=== PATIENT | male | born 1945 | race Caucasian/White ===

== ENCOUNTER 2019-03-31 14:15 | Emergency (ER) | payer MEDICARE, SELFPAY ==
--- NOTE | ~2019-03-31 | XR_ITS ---
XR finger 3rd LT min 2V DATE: 03/31/2019 14:52 INDICATION: Pain at proximal interphalangeal joint of third digit TECHNIQUE: 3 views COMPARISON: None FINDINGS: There is osteoarthritic narrowing at the distal interphalangeal joint of the third digit. N o fracture or dislocation, periosteal reaction or bone destruction or radiopaque soft tissue foreign body or subcutaneous emphysema is detected. IMPRESSION: Mild osteoarthritis Reviewed, dictated and finalized at location A. IC [facility]ENCE BUILDER IMPRESSION: Mild osteoarthritis
[2019-03-31 14:21] VITALS: BP 155/50; PULSE 62; RESP 20; TEMP 36.4; O2SAT 99
--- NOTE | 2019-03-31 14:21 | ED.UPPEXIN ---
HPI - Extremity Injury (Upper) General Chief Complaint: Extremity Injury, Upper Stated Complaint: jammed finger left hand Time Seen by Provider: 03/31/19 14:21 Source: patient and RN notes reviewed History of Present Illness HPI narrative: Patient is a 73-year-old male that presents the urgent care with complaints of pain and inflammation in the third digit of the left hand. Patient states that he jammed it a couple weeks ago but the last few days it is caused him worsening pain and he states that it is stiff. Patient has not taken anything for the pain. Is unsure of how he originally jammed it 2 weeks ago. No other acute complaints. No acute distress noted. Patient had a plan of care. Related Data Home Medications Medication Instructions Recorded Confirmed amlodipine 10 mg PO HS 03/31/19 03/31/19 finasteride 5 mg PO DAILY 03/31/19 03/31/19 losartan 100 mg PO DAILY 03/31/19 03/31/19 pravastatin 40 mg PO HS 03/31/19 03/31/19 tamsulosin [Flomax] 0.4 mg PO HS 03/31/19 03/31/19 Allergies Allergy/AdvReac Type Severity Reaction Status Date / Time moxifloxacin Allergy Mild Rash Verified 03/31/19 14:37 Penicillins Allergy Mild Hives / Verified 03/31/19 14:37 Red Face Review of Systems Review of Systems: Narrative: CONSTITUTIONAL: Denies fever, chills, or sweats. EYES: Denies visual changes, redness, or discharge. ENT: Denies rhinorrhea, congestion, sore throat, or otalgia. CARDIOVASCULAR: Denies chest pain, palpitations, or edema. RESPIRATORY: Denies cough or dyspnea. GASTROINTESTINAL: Denies abdominal pain, nausea, vomiting, or diarrhea. GENITOURINARY: Denies dysuria or hematuria. SKIN: Denies rash or itching. MUSCULOSKELETAL: Reports of pain and inflammation of the third digit on the left hand NEUROLOGIC: Denies headache, numbness, or weakness. PMFSH Comments At the time of my signature, I reviewed and agree with the nursing past medical, surgical, social, and family history. There is no relevant family history pertinent to the patient complaint. Exam Narrative: Exam Narrative: GENERAL: This is a well-nourished, well-developed patient, in no apparent distress. HEAD: normocephalic, atraumatic. EYES: PERRL. Sclera clear/white. Vision is grossly intact. EARS: External ears normal NOSE: External nose normal with no obvious nasal discharge THROAT: Mucous membranes moist NECK: Neck supple CARDIOVASCULAR: Regular rate and rhythm without murmurs, gallops, or rubs. RESPIRATORY: Clear to auscultation. Breath sounds equal bilaterally. No wheezes, rales, or rhonchi. SKIN: warm, intact with no suspicious lesions or rash, good texture and turgor. NEURO: awake, alert, and oriented to person, place and time. There were no obvious focal neurologic abnormalities. EXTREMITIES: Mild inflammation of the third digit of the left hand to the PIP joint with limited range of motion due to pain. Positive strong left radial pulse with capillary refill less than 2 seconds. Course Vital Signs Vital signs: Vital Signs Temperature 97.6 F 03/31/19 14:21 Pulse Rate 62 03/31/19 14:21 Respiratory Rate 20 03/31/19 14:21 Blood Pressure 155/50 H 03/31/19 14:21 Pulse Oximetry 99 03/31/19 14:21 Temperature 97.6 F 03/31/19 14:21 Pulse Rate 62 03/31/19 14:21 Respiratory Rate 20 03/31/19 14:21 Blood Pressure 155/50 H 03/31/19 14:21 Pulse Oximetry 99 03/31/19 14:21 Reviewed MDM - Extremity Injury (Upper) MDM Narrative Medical decision making narrative: Reviewed x-ray results with the patient. He is aware that x-ray showed mild osteoarthritis in the joint. No obvious fracture or dislocation. Advised the patient to use ibuprofen as needed for pain. Follow-up with PCP within 2 to 5 days or for worsening symptoms or failure to improve. Differential Diagnosis Differential diagnosis: Likely fracture of wrist, finger sprain, dislocation of finger and fracture of hand Imaging Data Radiologist's impression: Patient: Y
== END 2019-03-31 15:05 | disposition home or self-care (01) ==
PROVIDERS: Emergency Provider Nurse Practitioner Family; PCP Family Medicine
DX: M19.042 Primary osteoarthritis, left hand (principal); I10 Essential (primary) hypertension; E78.00 Pure hypercholesterolemia, unspecified
CPT/HCPCS: 73140; 99213; G0463

== ENCOUNTER 2019-12-28 13:39 | Emergency (ER) | payer MEDICARE, SELFPAY ==
[2019-12-28 13:47] VITALS: BP 151/54; PULSE 65; RESP 14; TEMP 36.7; O2SAT 100
--- NOTE | 2019-12-28 14:29 | ED.SKABFB ---
HPI - Skin/Abscess/Foreign Bdy General Chief complaint: Skin/Abscess/Foreign Body Stated complaint: Rash Time Seen by Provider: 12/28/19 14:29 Source: patient and RN notes reviewed Mode of arrival: ambulatory Limitations: no limitations History of Present Illness HPI narrative: 74-year-old male who presents to [facility] care with complaints of increasing rash since 2 AM. Patient states that he was put on Bactrim for ear infection and rash around his umbilicus and he has taken this antibiotic for the past 6 days. Patient has red raised pruritic rash to abdomen, down legs, on back and also on back of neck which started at 0200 this morning. He states that he has been taking Benadryl for the itching. Patient denies any difficulty with his breathing or any difficulty with swallowing. MD complaint: rash Onset (ago): hour(s) (10) Tetanus up to date: no Location: neck, chest (abdomen), back, LLE and RLE Severity: moderate Severity scale (1-10): 5 Quality: pruritic Pain Consistency: colicky Relieving factors: none Exacerbating factors: movement Context: recent antibiotic Associated symptoms: denies other symptoms Treatments prior to arrival: Benadryl Related Data Home Medications Medication Instructions Recorded Confirmed amlodipine 10 mg PO HS 03/31/19 12/28/19 finasteride 5 mg PO DAILY 03/31/19 12/28/19 losartan 100 mg PO DAILY 03/31/19 12/28/19 pravastatin 40 mg PO HS 03/31/19 12/28/19 tamsulosin [Flomax] 0.4 mg PO HS 03/31/19 12/28/19 Allergies Allergy/AdvReac Type Severity Reaction Status Date / Time moxifloxacin Allergy Mild Rash Verified 12/28/19 14:01 Penicillins Allergy Mild Hives / Verified 12/28/19 14:01 Red Face Sulfa (Sulfonamide Allergy Rash Verified 12/28/19 14:30 Antibiotics) Review of Systems Review of Systems: Narrative: CONSTITUTIONAL: Denies fever, chills, or sweats. EYES: Denies visual changes, redness, or discharge. ENT: Denies rhinorrhea, congestion, sore throat, or otalgia. CARDIOVASCULAR: Denies chest pain, palpitations, or edema. RESPIRATORY: Denies cough or dyspnea. GASTROINTESTINAL: Denies abdominal pain, nausea, vomiting, or diarrhea. GENITOURINARY: Denies dysuria or hematuria. SKIN: Positive for red raised pruritic rash to abdomen, legs, back and neck MUSCULOSKELETAL: Denies back pain, joint pain, or myalgia. NEUROLOGIC: Denies headache, numbness, or weakness. PSYCHIATRIC: Denies anxiety or depression. All systems reviewed & are unremarkable except as noted in HPI and below PMFSH Past Medical History Medical History (Updated 12/30/19 @ 09:11 by Ena Fong NP) Bronchitis Hyperlipidemia Hypertension Surgical History Surgical History (Updated 12/30/19 @ 09:08 by Ena Fong NP) H/O repair of left rotator cuff H/O repair of right rotator cuff History of carotid endarterectomy History of colon resection Hx of cataract surgery bilateral Status post bilateral LASIK surgery Social History Social History (Updated 12/30/19 @ 09:08 by Ena Fong NP) Smoking status: Former smoker Tobacco type: cigarettes Smoking end date: 03/02/09 Alcohol intake: unknown Substance use: never Living arrangements: with family Gender identity (if verbalized by the patient): Male Exam Const: General: no acute distress Orientation/consciousness: patient oriented x3 HENMT: Head: normal to inspection Ears: TM's normal bilaterally General nose exam: Normal external nose present and Normal nares present Eyes: Conjunctivae: conjunctivae normal Pupils: Equal, round and reactive pupils present EOM: EOMs intact bilaterally Neck: Neck: normal visual inspection and no lymphadenopathy Other: red raised pruritic rash to back of neck Chest: Chest palpation & inspection: normal inspection of the chest Other: red raised pruritic rash to lower chest and abdomen Resp: Effort & Inspection: normal respiratory effort Auscultation: clear to auscultation bilaterally
[2019-12-28] MEDS: methylPREDNISolone ACETATE 80 MG/ML VIAL IM (14:46)
[2019-12-28] MEDS: TETANUS,DIPHTHERIA,AC PERTUSSIS ADULT (0.5 ML) BOOSTRIX IM (14:50)
== END 2019-12-28 15:15 | disposition home or self-care (01) ==
PROVIDERS: Emergency Provider Registered Nurse; PCP Internal Medicine
DX: L50.0 Allergic urticaria (principal); Z23 Encounter for immunization; Z87.891 Personal history of nicotine dependence; E78.5 Hyperlipidemia, unspecified; I10 Essential (primary) hypertension
CPT/HCPCS: 90471; 90715; 96372; 99213; G0463; J1040

== ENCOUNTER 2021-10-10 09:59 | Emergency (ER) | payer MEDICARE, SELFPAY ==
[2021-10-10 10:06] VITALS: BP 150/56; PULSE 56; RESP 20; TEMP 36.6; O2SAT 99
--- NOTE | 2021-10-10 10:19 | ED.URI ---
HPI - URI/Sore Throat General Chief Complaint: Upper Respiratory Infection Stated Complaint: Chest Congestion Time Seen by Provider: 10/10/21 10:14 Source: patient and RN notes reviewed Mode of arrival: ambulatory Limitations: no limitations History of Present Illness HPI Narrative: 76-year-old male presented after testing positive for COVID at home. He endorses cough, congestion, sinus pressure, headache, subjective fever and fatigue. Endorses yesterday and today feeling worse since onset3 days ago. States he felt the test may not be accurate. He denies chest pain, shortness of breath, wheezing, nausea, vomiting, diarrhea. He is not taking anything for symptoms. MD elicited complaint: cough Related Data Home Medications Medication Instructions Recorded Confirmed finasteride 5 mg tablet 5 mg PO DAILY 03/31/19 10/10/21 losartan 100 mg tablet 100 mg PO DAILY 03/31/19 10/10/21 pravastatin 40 mg tablet 40 mg PO HS 03/31/19 10/10/21 tamsulosin 0.4 mg capsule (Flomax) 0.4 mg PO HS 03/31/19 10/10/21 amlodipine 5 mg tablet 5 mg PO DAILY 10/10/21 10/10/21 valsartan 160 mg tablet mg 10/10/21 Allergies Allergy/AdvReac Type Severity Reaction Status Date / Time moxifloxacin Allergy Mild Rash Verified 10/10/21 10:17 Penicillins Allergy Mild Hives / Verified 10/10/21 10:17 Red Face Sulfa (Sulfonamide Allergy Rash Verified 10/10/21 10:17 Antibiotics) Review of Systems Review of Systems: ROS negative except as in HPI PMFSH Past Medical History Medical History Bronchitis Hyperlipidemia Hypertension Surgical History Surgical History H/O repair of left rotator cuff H/O repair of right rotator cuff History of carotid endarterectomy History of colon resection Hx of cataract surgery bilateral Status post bilateral LASIK surgery Social History Social History Smoking status: Former smoker Tobacco type: cigarettes Smoking end date: 03/02/09 Alcohol intake: unknown Substance use: never Gender identity (if verbalized by the patient): Male Exam Narrative: GENERAL: Ill-appearing, nontoxic EYES: conjunctivae clear ENT: Mucous membranes moist. TM pearly arevalo with dull light reflex bilaterally; no tragal tenderness. CHEST: Clear to auscultation, breath sounds equal. No wheezing, rhonchi, rales, or stridor. No respiratory distress, speaks in full sentences. HEART: Regular rate and rhythm. No murmur heard. SKIN: Warm, dry, no rash. NEURO: Alert and oriented x3. PSYCH: Normal mood and affect Course Course Emergency Course: Patient is aware of diagnosis, understands and agrees to treatment plan. Anticipatory guidance given. Patient agrees to follow-up as directed and is aware of reasons to seek care at the emergency department. Portions of this record may have been created with voice recognition software Level of Care: [facility] Visit Vital Signs Vital signs: Vital Signs Temperature 97.9 F 10/10/21 10:06 Pulse Rate 56 L 10/10/21 10:06 Respiratory Rate 20 10/10/21 10:06 Blood Pressure 150/56 H 10/10/21 10:06 Pulse Oximetry 99 10/10/21 10:06 Oxygen Delivery Room Air 10/10/21 10:06 Temperature 97.9 F 10/10/21 10:06 Pulse Rate 56 L 10/10/21 10:06 Respiratory Rate 20 10/10/21 10:06 Blood Pressure 150/56 H 10/10/21 10:06 Pulse Oximetry 99 10/10/21 10:06 Oxygen Delivery Room Air 10/10/21 10:06 reviewed MDM - URI/Sore Throat MDM Narrative Medical decision making narrative: Given pt's positive home test and symptoms, he is educated on the diagnosis and understands retesting here is not indicated. Advised supportive measures and signs/symptoms to go to the ER. Pt is appropriate for outpt treatment and f/u with pcp. Differential Diagnosis Differential diagnosis: Likely upper respiratory
== END 2021-10-10 10:25 | disposition home or self-care (01) ==
PROVIDERS: Emergency Provider Nurse Practitioner Family; PCP Internal Medicine
DX: B34.9 Viral infection, unspecified (principal); E78.5 Hyperlipidemia, unspecified; I10 Essential (primary) hypertension; Z87.891 Personal history of nicotine dependence
CPT/HCPCS: 99211; G0463

== ENCOUNTER → 2023-01-28 11:04 | Outpatient (CLI) | payer MEDICARE, SELFPAY ==
--- NOTE | ~2023-01-28 | XR_ITS ---
EXAMINATION: XR elbow RT min 3V DATE: 01/28/2023 12:01 INDICATION: Lateral epicondylitis. TECHNIQUE: 4 views of right elbow were obtained. COMPARISON: None. FINDINGS: Bone alignment is normal. No fracture. There is mild elbow joint osteoarthritis. There is h eterotopic ossification adjacent to lateral humeral epicondyle. There is an enthesophyte at medial hu meral epicondyle. No elbow joint effusion. IMPRESSION: 1. Mild elbow joint osteoarthritis. 2. 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 Reviewed, dictated and finalized at location A. N BLEACHER
== END ==
PROVIDERS: PCP Nurse Practitioner Family; Visit Provider Nurse Practitioner Family
DX: M77.10 Lateral epicondylitis, unspecified elbow (principal); M19.021 Primary osteoarthritis, right elbow
CPT/HCPCS: 73080

== ENCOUNTER 2023-09-18 15:15 | Emergency (ER) | payer MEDICARE, SELFPAY ==
[2023-09-18 15:21] VITALS: BP 139/45; PULSE 62; RESP 16; TEMP 36.8; O2SAT 99
--- NOTE | 2023-09-18 16:19 | ED.GENADULT ---
HPI - General Adult General Chief complaint: Upper Respiratory Infection Stated complaint: congestion/cough/fatigue Time Seen by Provider: 09/18/23 16:22 Source: patient, RN notes reviewed and old records reviewed Mode of arrival: ambulatory Limitations: no limitations History of Present Illness HPI narrative: 78-year-old male to [facility] complaint congestion, fatigue, productive cough, bilateral ear fullness in nasal drainage for approximately 9 days. Patient has attempted treat at home [id number] medications with relief. Patient reports history cerumen impaction that required removal by provider. Patient denies fever, shortness of breath, chest pain, headache GI complaints. Respirations even and nonlabored. Patient able to tolerate fluids by mouth. Patient in no acute distress. Related Data Home Medications Medication Instructions Recorded Confirmed finasteride 5 mg tablet 5 mg PO DAILY 03/31/19 10/10/21 pravastatin 40 mg tablet 40 mg PO HS 03/31/19 10/10/21 tamsulosin 0.4 mg capsule (Flomax) 0.4 mg PO HS 03/31/19 10/10/21 amlodipine 5 mg tablet 5 mg PO BID 10/10/21 10/10/21 valsartan 160 mg tablet 160 mg PO DAILY 10/10/21 10/10/21 Allergies Allergy/AdvReac Type Severity Reaction Status Date / Time moxifloxacin Allergy Mild Rash Verified 10/10/21 10:17 Penicillins Allergy Mild Hives / Verified 10/10/21 10:17 Red Face Sulfa (Sulfonamide Allergy Rash Verified 10/10/21 10:17 Antibiotics) Review of Systems Review of Systems: All systems reviewed & are unremarkable except as noted in HPI and below Constitutional: Constitutional: Reports as per HPI and Reports fatigue Eyes: Eyes: Reports no additional eye complaints ENT: Reports as per HPI and Reports nasal congestion Cardiovascular: Cardiovascular: Reports no additional cardiovascular complaints, Denies chest pain and Denies dyspnea Respiratory: Respiratory: Reports no additional respiratory complaints, Reports change in phlegm color, Reports cough and Denies dyspnea Musculoskeletal: Musculoskeletal: Reports no additional musculoskeletal complaints Neurologic: Reports system reviewed and no additional complaints, except as documented Psychiatric: Psychiatric: Reports no additional psychiatric complaints PMFSH Past Medical History Medical History Bronchitis Hyperlipidemia Hypertension Surgical History Surgical History H/O repair of left rotator cuff H/O repair of right rotator cuff History of carotid endarterectomy History of colon resection Hx of cataract surgery bilateral Status post bilateral LASIK surgery Social History Social History Smoking status: Former smoker Tobacco type: cigarettes Smoking end date: 03/02/09 Alcohol intake: unknown Substance use: never Living arrangements: with family Gender identity (if verbalized by the patient): Male Comments At the time of my signature, I reviewed and agree with the nursing past medical, surgical, social, and family history. There is no relevant family history pertinent to the patient complaint. Exam Const: General: cooperative, no acute distress, alert, tired appearing and well nourished Nutritional Appearance: well nourished Orientation/consciousness: patient oriented x3 Limitations: no limitations HENMT: Head: normal to inspection Ears: Abnormal EAC present cerumen impaction bilateral and TM abnormal with fluid behind the TM bilateral Face/Nose/Sinus: Normal external nose present, Abnormal mucous membranes and turbinates present boggy and erythematous, normal facial exam, No erythema and No edema Face and sinus: normal facial exam, no erythema and no edema Mouth: Yes Normal oral and palatal mucosa present Throat: uvula midline, posterior oropharynx abnormal erythema and exudates
[2023-09-18 17:05] LABS: EDINFLUASCREEN Negative; EDINFLUBSCREEN Negative
== END 2023-09-18 17:08 | disposition home or self-care (01) ==
PROVIDERS: Emergency Provider Nurse Practitioner Family; PCP Internal Medicine
DX: H61.23 Impacted cerumen, bilateral (principal); R05.9 Cough, unspecified; Z20.822 Contact with and (suspected) exposure to COVID-19; Z87.891 Personal history of nicotine dependence; E78.5 Hyperlipidemia, unspecified; I10 Essential (primary) hypertension
CPT/HCPCS: 69210; 87426; 87804; 99213; G0463

== ENCOUNTER 2024-02-25 08:00 | Emergency (ER) | payer MEDICARE, SELFPAY ==
[2024-02-25 08:06] VITALS: BP 125/46; PULSE 65; RESP 18; TEMP 37.4; O2SAT 97
--- NOTE | 2024-02-25 08:10 | ED.URI ---
HPI - URI/Sore Throat General Chief Complaint: Upper Respiratory Infection Stated Complaint: possible covid Time Seen by Provider: 02/25/24 08:05 Source: patient, RN notes reviewed and old records reviewed Mode of arrival: ambulatory Limitations: no limitations History of Present Illness HPI Narrative: 78 year old male who presents to [facility] with complaints that he thinks he has COVID. Reports he took a tests at home yesterday with 1 being positive and 1 being negative. Patient reports symptoms started on the which have included sore throat hoarseness fevers up to 99.9F some nasal congestion and a dry cough, and he did have headache yesterday. Patient has taken Tylenol and ibuprofen for his fever and symptoms. Patient denies any shortness of breath, patient has no tachypnea or retractions SaO2 97% on room air MD elicited complaint: cough and sore throat Able to tolerate fluids by mouth: Yes Related Data Home Medications ?Medication ?Instructions ?Recorded ?Confirmed ?Last Taken ?Type pravastatin 40 mg tablet 40 mg PO HS 03/31/19 10/10/21 Unknown History tamsulosin 0.4 mg capsule (Flomax) 0.4 mg PO HS 03/31/19 10/10/21 Unknown History amlodipine 5 mg tablet 5 mg PO BID 10/10/21 10/10/21 Unknown History valsartan 160 mg tablet 160 mg PO DAILY 10/10/21 10/10/21 Unknown History Allergies Allergy/AdvReac Type Severity Reaction Status Date / Time moxifloxacin Allergy Mild Rash Verified 10/10/21 10:17 Penicillins Allergy Mild Hives / Verified 10/10/21 10:17 Red Face amoxicillin Allergy Unknown Unknown Verified 02/25/24 08:10 Sulfa (Sulfonamide Allergy Rash Verified 10/10/21 10:17 Antibiotics) Review of Systems Review of Systems: CONSTITUTIONAL: Reports malaise, chills, sweats, or fever. EYES: Denies visual changes, redness, or discharge. ENT: Reports rhinorrhea, congestion, no sinus pain, no otalgia and positive sore throat. CARDIOVASCULAR: Denies chest pain, palpitations, or edema. RESPIRATORY: Reports dry cough.? Denies dyspnea. GASTROINTESTINAL: Denies abdominal pain, nausea, vomiting, diarrhea SKIN: Denies rash or itching. MUSCULOSKELETAL: Positive myalgias NEUROLOGIC: Positive headache. All systems reviewed & are unremarkable except as noted in HPI and below PMFSH Past Medical History Medical History Bronchitis Hyperlipidemia Hypertension Surgical History Surgical History History of carotid endarterectomy H/O repair of right rotator cuff H/O repair of left rotator cuff Hx of cataract surgery bilateral History of colon resection Status post bilateral LASIK surgery Social History Social History Smoking status: Former smoker Tobacco type: cigarettes Smoking end date: 03/02/09 Alcohol intake: unknown Substance use: never Living arrangements: with family Gender identity (if verbalized by the patient): Male Comments At time of signature, agree with nursing past medical, surgical, social and family history. There is no relevant family history pertinent to the presenting complaint Exam Narrative: GENERAL: ill-appearing, well-nourished, and in no acute distress. HEAD: Normocephalic EYES: PERRLA, conjunctivae clear ENT: Nares clear, turbinates edematous and erythematous, clear discharge. Mucous membranes moist. TM pearly arevalo with dull light reflex bilaterally; no tragal tenderness. Oropharynx erythematous without lesions. Tonsils not enlarged and without exudate, no drooling, no hoarseness, no trismus, uvula midline. Postnasal drainage NECK: Supple. No lymphadenopathy CHEST: Clear to auscultation, breath sounds equal. No wheezing, rhonchi, rales, or stridor. No respiratory distress, speaks in full sentences. Dry cough SaO2 97% on room air HEART: Regular rate and rhythm. No murmur heard. SKIN: Warm, dry, no rash. NEURO: Alert and oriented x3. PSYCH: Normal mood and affect Course Course Emergency Course: Patient is aware of diagnosis, understands and agrees to treatment plan.? Anticipatory guidance given.? Patient agrees to follow-up as directed and is aware of reasons to seek care at the emergency department. Portions of this record may have been created with voice recognition software Level of Care: Express Care Visit Vital Signs Vital signs: Vital Signs Temperature 37.4 C 02/25/24 08:06 Pulse Rate 65 02/25/24 08:06 Respiratory Rate 18 02/25/24 08:06 Blood Pressure 125/46 L 02/25/24 08:06 Pulse Oximetry 97 02/25/24 08:06 Oxygen Delivery Room Air 02/25/24 08:06 Temperature 37.4 C 02/25/24 08:06 Pulse Rate 65 02/25/24 08:06 Respiratory Rate 18 02/25/24 08:06 Blood Pressure 125/46 L 02/25/24 08:06 Pulse Oximetry 97 02/25/24 08:06 Oxygen Delivery Room Air 02/25/24 08:06 Reviewed MDM - URI/Sore Throat MDM Narrative Medical decision making narrative: Differential diagnosis considered: Stuart virus, strep pharyngitis, allergic rhinitis, upper respiratory tract infection, sinusitis, rhinosinusitis, nasopharyngitis. viral pharyngitis, otitis media, otitis externa, pneumonia, bronchitis, viral cough syndrome, viral syndrome, and influenza.? Exam findings show no acute concerns or changes; patient is non-toxic appearing and is in no distress.? Patient is appropriate for outpatient treatment and follow-up. Differential Diagnosis Differential diagnosis: Likely upper respiratory infection, viral infection, influenza and other (COVID) Medical Records Attestation: I reviewed the patient's medical records. Lab Data Attestation: I reviewed the patient's lab results. Lab results narrative: Covid antigen positive Labs: Lab Results 02/25/24 Range/Units 08:10 POC SARS CoV-2 Ag Positive (Negative) Critical Care Time Critical Care Time Critical Care Time: No Discharge Plan Discharge Clinical Impression: COVID-19 Patient Disposition: Home, Self-Care Condition: Stable Instructions: Antibiotic Form, How to Recover from COVID-19 at Home (ED) Additional Instructions: Increase fluids especially juices and water [id number] cough and cold medicine of your choice for your symptoms Tylenol or Ibuprofen for any fever or pain heat to the face 20-30 minutes 4-6 times a day for pain Salt water gargles, throat lozenges or throat sprays as desired Zyrtec,Claritin or Jerrica and include Coricidin brand decongestant Must quarantine COVID-19 DISCHARGE The following recommendations have been made by the CDC and local Health Departments, regarding COVID-19: Those individuals with mild cases of COVID-19 can generally be discontinued from isolation, 5 days AFTER the onset of symptoms AND the resolution of fever for 24hrs (without the use of fever-reducing medications) Those individuals who were asymptomatic, and tested positive, are discontinued from isolation 10 days AFTER their first positive COVID-19 test Those individuals with SEVERE to CRITICAL illness or immunocompromised diseases may require up to 20 days of home isolation or hospitalization Majority of mild to moderate cases can be treated at home, without hospitalization or prescription medications You do not need a negative test result to return to work/school, assuming the above recommendations have been met and you are not symptomatic. At this time, return to work/school notes will not be provided. Guidelines from the local Health Department, CDC, and workplace are expected to be followed. All individuals in the household need to remained quarantined for up to 14 days if asymptomatic OR 10 days after the start of symptoms. Everyone in the home DOES NOT require testing, they are presumed positive and should quarantine as directed. Treating symptoms for mild to moderate cases may include: Tylenol, Flonase/nasal spray, OTC cold/flu medications recommended from your provider or any necessary prescription medications provided at your visit or from your PCP IF YOU TESTED NEGATIVE If you are symptomatic with reason to believe you have COVID-19, there is a high possibility your rapid test may not have detected the virus. Rapid testing is dependent on timing and viral load and may have a false-negative reading You should follow appropriate guidelines regarding quarantine, hand washing, mask wearing, and social distancing You may be sent for PCR testing as an outpatient to the [facility] testing site Common Adult Symptoms: Fever/chills Cough Shortness of breath Fatigue, muscle aches Headache Loss of taste/smell Sore throat, congestion, runny nose GI symptoms (nausea, vomiting, diarrhea) Common Pediatric Symptoms Cough Fever GI symptoms (diarrhea, upset stomach, nausea, vomiting) Symptoms may differ in severity however, most cases do not require hospitalization. WHEN TO SEEK ER EVALUATION/TREATMENT Severe/persistent shortness of breath or difficulty breathing Elevated, persistent fevers without resolution with fever-reducing medications Chest pain Extreme fatigue/lethargy Complications of pre-existing disease Patient Language: Bengali Prescriptions: No Action pravastatin 40 mg Tablet 40 mg PO HS tamsulosin [Flomax] 0.4 mg Capsule 0.4 mg PO HS amlodipine 5 mg tablet 5 mg PO BID valsartan 160 mg tablet 160 mg PO DAILY Follow-up/Referrals: Gudino,Jaylon Page MD [Primary Care Provider] - Time of Disposition: 08:26 Quality Junior Coma Scale Eyes: Open Verbal: Oriented and Alert Motor: Follows Commands Wirtz Coma Total Score: 15
[2024-02-25 08:27] LABS: EDCOVIDSCREEN Positive (Negative)
--- OUTSIDE RECORDS SUMMARY | 2024-03-03 11:25 | XMS_ITS | Clinical Summary ---
Author Organization [facility] Address [address] [address] [place] [address] Phone Care Team Providers Care Erp Engineer Name Role Phone Jaylon Gudino MD Primary Care Provider Allergies Active Allergy Reactions Criticality Noted Date Comments Moxifloxacin Hcl In Nacl Unknown 02/01/2016 Penicillins Hives Simvastatin Other (see Comments) 11/10/2011 MUSCLE PAIN Sulfa Antibiotics Rash Medium 12/28/2019 Medications aspirin EC 81 MG Tablet Delayed Response Take 81 mg by mouth daily. Active RABEprazole (ACIPHEX) 20 MG Tablet Delayed Response TAKE 2 TABLETS BY MOUTH ONCE DAILY TAKE 30-60 MINUTES BEFORE SUPPER 90 Tablet 4 Active levothyroxine (SYNTHROID) 25 MCG TabletIndicati ons:Elevated TSH TAKE 1 TABLET BY MOUTH 4 TIMES A WEEK 52 Tablet 4 Active valsartan (DIOVAN) 160 MG Tablet Take 1 tablet by mouth once daily 90 Tablet 4 Active amLODIPine (NORVASC) 5 MG Tablet Take 1 tablet by mouth twice daily 180 Tablet 4 Active pravastatin (PRAVACHOL) 40 MG Tablet TAKE 2 TABLETS BY MOUTH NIGHTLY 180 Tablet 4 Active pravastatin (PRAVACHOL) 40 MG Tablet TAKE 2 TABLETS BY MOUTH NIGHTLY 180 Tablet 4 02/22/20 24 Discontinued Active Problems Problem Noted Date Diagnosed Date Other specified hypothyroidism 09/29/2022 Hyperglycemia 04/17/2020 Generalized pruritus 04/17/2020 Essential hypertension, benign 01/16/2020 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 History of left-sided carotid endarterectomy Infrarenal abdominal aortic aneurysm (AAA) witho ut rupture 01/17/2019 PNAR (perennial non-allergic rhinitis) 6 GERD without esophagitis 05/05/2011 Pain in right shoulder 05/05/2011 Other hyperlipidemia 12/11/2009 Nasal turbinate hypertrophy Chronic laryngitis Laryngopharyngeal reflux (LPR) Resolved Problems Problem Noted Date Diagnosed Date Resolved Date Abdominal aortic aneurysm (A AA) without rupture 12/21/2019 04/20/2023 Carotid artery stenosis 09/27/201212/01 Encounters Date Type Department Care Team Description [facility] [address] [place] [address] Jaylon Gudino MD Medication Refill [facility] [address] [place] [address] Jaylon Gudino MD 01/25/20[facility] [address] [place] [address] Jaylon Gudino MD 01/21/2024 7:09 AM CO FOUNDER - 01/21/2024 11:59 PM CO FOUNDER Hospital Encounter [facility] Ul[facility]ound [address] [place] [address] Jaylon Gudino MD Discharge Disposition: Discharged to home or Selfcare 01/19/2024 [facility] [place] [address] Jaylon Gudino MD 01/18/2024 10:30 AM CO FOUNDER [facility] [place] [address] Mary Ann [facility] Im Elevated liver enzymes Discharge Disposition: Discharged to home or Selfcare 01/18/2024 Travel [facility]/03[facility] [address] [place] [address] Jaylon Gudino MD Medication Refill 12/23/2023 [facility] [address] [place] [address] Jaylon Gudino MD Medication Refill from Last 3 Months Immunizations Immunization Administration Dates Next Due Covid-19, Mrna, Lnp-s, PF, 1 00 mcg/0.5 mL Dose (Moderna) 05/26/2020 Influenza Vaccine greater than 3 yrs 11/15/2018 Influenza Vaccine, Quadrivalent, PF 12/10/2021 Influenza, High-dose, Quadrivalent 11/09/2019 Influenza, Quadrivalent, Adjuvanted 11/13/2022,0 10/31/2020 Influenza, Recombinant, Quadrivalent,injectable, Pf 10/31/2020 Influenza, Seasonal, Injecta ble, Undefined 11/15/2018 Influenza, high-dose, trivalent, PF 11/2019,11/18/2016,11/25/2015,12/16 Pneumococcal Vaccine Adult - 23 Valent Pneumococcal conjugate PCV20 , polysaccharide [id number] conjugate, adjuvant, PF 03/31/2022 TDAP Vaccine 07/23/2022 Zoster Vaccine Recombinant 06/22/2023 Zoster Vaccine, live 07/16/2015 Family History Medical History Relation Name Comments No Known Problems Brother Relation Name Status Comments Brother Alive Father Mother Alive Social History Tobacco Use Types Packs/Day Years Used Date Smoking Tobacco: Former Cigarettes 1 10 Passive Smoke Exposure: Past Smokeless Tobacco: Never Tobacco Cessation:Counseling Given: Not Answered Alcohol Use Standard Drinks/Week Comments No 0 (1 standard drink = 0.6 oz pur e alcohol) [facility] Utilities Answer Date Recorded In the past 12 months has [employer], gas, oil, or water [employer] threatened to shut off services in your home? No 04/20/2023 Social Connection and Isolat ion Panel [NHANES] Answer Date Recorded In a typical week, how many times do you talk on the phone with family, friends, or neighbors? More than three times a week 04/20/2023 Frequency of Social Gatherin gs with Friends and Family Not on file 04/20/2023 Attends Christianity Services Not on file 04/20 Active Member of Clubs or Organizations Not on f ile 04/20/2023 Attends Club or Organization Meetings Not on sue e 04/20/2023 Marital Status Not on file 04/20/2023 AUDIT-C Answer Date Recorded Q1: How often do you have a drink containing alc ohol? Never 04/20/2023 Average Number of Drinks Not on file 024 Frequency of Binge Drinking Not on file 04/02 Overall Financial Resource Strain (CARDIA) Answe r Date Recorded How hard is it for you to pa y for the very basics like food, housing, medical care, and heating? Not hard at all 04/20/2023 PHQ-2 Answer Date Recorded Total Score - Questions 1-9 0 04/02 [facility] Occupat ional Health - Occupational Stress Questionnaire Answer Date Recorded Do you feel stress - tense, restless, nervous, or anxious, or unable to sleep at night because your mind is troubled all the time - these days? Only a little 04/20/2023 Exercise Vital Sign Answer Date Recorde d On average, how many days pe r week do you engage in moderate to strenuous exercise (like a brisk walk)? 1 day 04/20/2023 On average, how many minutes do you engage in exercise at this level? 150+ min 04/20/2023 Hunger Vital Sign Answer Date Recorded Within the past 12 months, y ou worried that your food would run out before you got the money to buy more. Never true 04/20/19 24 Ran Out of Food in the Last Year Not on file 04/20/2023 PRAPARE - Transportation Answer Date Re corded In the past 12 months, has l ack of transportation kept you from medical appointments or from getting medications? No 04/20/2023 Lack of Transportation (Non-Medical) Not on file 04/20/2023 Housing Stability Vital Sign Answer Claus e Recorded In the last 12 months, was t here a time when you were not able to pay the mortgage or rent on time? 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 Not on file Not on file Last Filed Vital Signs Vital Sign Reading Time Taken Comments Blood Pressure 132/58 10/19/2023 9:44 AM CDT Pulse 53 10/19/2023 9:44 AM CDT Temperature 36.4 ??C (97.6 ??F) 10/19/2023 9:44 AM CD T Respiratory Rate 12 10/19/2023 9:44 AM CDT Oxygen Saturation 98% 10/19/2023 9:44 AM CDT Inhaled Oxygen Concentration - - Weight 79.1 kg (174 lb 6.4 oz) 10/19/2023 9:44 A M CDT Height 175.3 cm (5' 9 ) 10/19/2023 9:44 AM CDT Body Mass Index 25.75 10/19/2023 9:44 AM CDT Plan of Treatment Upcoming Encounters Date Type Department Care Team (Late st Contact Info) Description 04/25/2024 9:30 AM CO FOUNDER [facility] [place] [address] [place] [id number] Jaylon Gudino MD [address] [place] [address] Health Maintenance Due Date Last Done Comments Hepatitis C Virus (HCV) Screening 1945 Respiratory Syncytial Virus (RSV) Immunization (Adult) (1 - 1-dose 75+ series) 09/04/2018 Influenza Immunization (#1) 11/01/202310/31, 12/10/2021, 10/31/2020, Additional history exists SARS-COV-2 Immunization ( season) 2023 12/23/2022, 06/29/2021, 01/14/2021, Additional history exists Td Immunization Every 10 Years (Adults With 1 Tdap) 07/23/2032 07/23/2022 Pneumococcal Immunization (50+ years) Completed 03/31/2022, 12/17/2020 Pneumococcal Immunization Combined Discontinued 03/31/2022, 12/17/2020 DTaP/Tdap/Td Immunization Discontinued 07/23/2022 TdaP Immunization Discontinued 07/23/2022 Zoster Immunization Completed 10/24/2023, 06/22/2023, 07/16/2015 Hepatitis B Immunization Aged Out No longer eligible based on patient's age to complete this topic Meningococcal Immunization (ACWY) Aged Out No longer eligible based on patient's age to complete this topic Rotavirus Immunization Aged Out No lo nger eligible based on patient's age to complete this topic Medical Devices Implanted Type Area Proof Carrier Device Identifier Shelf Expiration Date Model / Serial / Lot Ana Rosa Clayton, Fluoroplastic Intranasal Splint, Oversize Thick 0.50mm Implanted:Qty: 1 on 02/01/2016 by [facility] at [facility] Left: Nose 08/26/2023 / / [id number] Ana Rosa Clayton, Fluoroplastic Intranasal Splint, Oversize Thick (0.50mm) Implanted:Qty: 1 on 02/01/2016 by [facility] at [facility] Right: Nose 08/26/2023 / / [id number] Procedures Procedure Name Priority Date/Time Associated Diagnosis Comments SARS-COV-2 BY MOLECULAR 02/25/2024 12:00 AM CO FOUNDER US ABDOMEN LIMITED LEVEL 3 THREE ORGAN Routine 01/21/2024 7:26 AM CO FOUNDER Elevated liver enzymes HEPATIC FUNCTION PANEL Routine 01/18/2024 10:13 AM CO FOUNDER Elevated liver enzymes from Last 3 Months Results * SARS-COV-2 BY MOLECULAR (02/25/2024 12:00 AM CO FOUNDER) 02/25/2024 us Provider Scan MICROBIOLOGY - GENERAL ORDERABLE S Final Result SCAN * US ABDOMEN LIMITED LEVEL 3 THREE ORGAN (01/21/2024 7:26 AM CO FOUNDER) Anatomical Region Laterality Modality Abdomen N/A Ultrasound 01/25/2024 4:16 PM CO FOUNDER Impressions 01/25/2024 4:18 PM CO FOUNDER IMPRESSION: Mild hepatic steatosis. Gallbladder sludge. No cholelithiasis or sonographic evidence of cholecystitis. Narrative 01/25/2024 4:18 PM CO FOUNDER EXAM DESCRIPTION: ?? US ABDOMEN LIMITED LEVEL 3 THREE ORGAN REASON FOR STUDY: ?? Elevated liver enzymes. TECHNIQUE: Ultrasound of the right upper quadrant of the abdomen was performed with grayscale and color doppler. COMPARISON: ?? None FINDINGS: PANCREAS: ?? Visualized portions of the pancreas are within normal limits. Portions of the pancreatic body and tail are obscured due to bowel gas. LIVER: ?? The liver is within normal limits in size. ??There is mild diffuse increased echogenicity suggesting steatosis. ??No focal mass. GALLBLADDER: ?? There is sludge within the gallbladder. ??No shadowing stone, wall thickening or pericholecystic fluid. ??No positive sonographic Salter sign reported ?? BILIARY: ?? There is no intrahepatic or extrahepatic biliary ductal dilatation. ??Common bile duct measures ??3 mm ??in diameter. RIGHT KIDNEY: ?? Normal size. Normal echogenicity. No solid mass or cyst. ??No hydronephrosis. ??Measures ??9.9 ??cm in length. OTHER: ?? No other significant findings. THIS IS AN ELECTRONICALLY VERIFIED FINAL REPORT 01/25/2024 4:16 PM - Electronically signed by ??Destiney Aldrich M.D. TW: ALBINO D: ??01/25/2024 4:16 PM T: ??01/25/2024 4:16 PM Report ID: [id number] Reading Location: ??[id number] Procedure Note Destiney Aldrich MD - 01/25/2024 EXAM DESCRIPTION: US ABDOMEN LIMITED LEVEL 3 THREE ORGAN REASON FOR STUDY: Elevated liver enzymes. TECHNIQUE: Ultrasound of the right upper quadrant of the abdomen was performed with grayscale and color doppler. COMPARISON: None FINDINGS: PANCREAS: Visualized portions of the pancreas are within normal limits. Portions of the pancreatic body and tail are obscured due to bowel gas. LIVER: The liver is within normal limits in size. There is mild diffuse increased echogenicity suggesting steatosis. No focal mass. GALLBLADDER: There is sludge within the gallbladder. No shadowing stone, wall thickening or pericholecystic fluid. No positive sonographic Salter sign reported BILIARY: There is no intrahepatic or extrahepatic biliary ductal dilatation. Common bile duct measures 3 mm in diameter. RIGHT KIDNEY: Normal size. Normal echogenicity. No solid mass or cyst. No hydronephrosis. Measures 9.9 cm in length. OTHER: No other significant findings. THIS IS AN ELECTRONICALLY VERIFIED FINAL REPORT 01/25/2024 4:16 PM - Electronically signed by Destiney Aldrich M.D. TW: TW Report ID: [id number] Reading Location: [id number] IMPRESSION: Mild hepatic steatosis. Gallbladder sludge. No cholelithiasis or sonographic evidence of cholecystitis. us Jaylon Gudino MD [facility] [place] ORDERABLES Final Res ult * (ABNORMAL) HEPATIC FUNCTION PANEL (01/18/2024 10:13 AM CO FOUNDER) T BILI 0.5 0.2 - 1.2 mg/dL 01/18/2024 4:10 PM CO FOUNDER [facility] BILIRUBIN,DIRECT 0.1 0.0 - 0.5 mg/dL 01/18/2024 4:10 PM CO FOUNDER [facility] ALKALINE PHOSPHATASE 65 40 - 150 U/L 01/18/2024 4:10 PM CO FOUNDER [facility] SGOT (AST) 40(H) 5 - 34 U/L 01/18/2024 4:10 PM CO FOUNDER [facility] SGPT (ALT) 42 0 - 55 U/L 01/18/2024 4:10 PM CO FOUNDER [facility] TOTAL PROTEIN 7.4 6.3 - 8.2 g/dL 01/18/2024 4:10 PM CO FOUNDER [facility] ALBUMIN 4.7 3.5 - 5.0 g/dL 01/18/2024 4:10 PM CO FOUNDER [facility] Blood Venipuncture / Unknown 01/18/2024 10:13 AM CO FOUNDER 01/18/2024 10:18 AM CO FOUNDER Jaylon Gudino MD CHEMISTRY ORDERABLES Final Result [facility] [address] [place] [address] from Last 3 Months Insurance MEDICARE Care Teams Erp Engineer Relationship Specialty Start Date End Date Jaylon Gudino MD [address] [place] [address] PCP - General Internal Medicine 01/16/16
--- OUTSIDE RECORDS SUMMARY | 2024-03-03 11:25 | XMS_ITS | Encounter Summary ---
Author Organization [facility] Address [address] [place] [address] Phone Care Team Providers Care Head Boys Tennis Coach Name Role Phone Jaylon Gudino MD Primary Care Provider [phone] Encounter Details Date Type Department Care Team (Late st Contact Info) Description 01/25/2024 Telephone [facility] - [facility] - [place] [address] [place] [address] Jaylon Gudino MD [address] [place] [address] Social History Tobacco Use Types Packs/Day Years Used Date Smoking Tobacco: Former Cigarettes 1 10 Passive Smoke Exposure: Past Smokeless Tobacco: Never Alcohol Use Standard Drinks/Week Comments No 0 (1 standard drink = 0.6 oz pur e alcohol) [facility] Utilities Answer Date Recorded In the past 12 months has [employer], gas, oil, or water [employer] threatened to shut off services in your home? No 04/20/2023 Social Connection and Isolat ion Panel [NHANES] Answer Date Recorded In a typical week, how many times do you talk on the phone with family, friends, or neighbors? More than three times a week 04/20/2023 Frequency of Social Gatherin gs with Friends and Family Not on file 04/20/2023 Attends Uatsdin Services Not on file 04/20 Active Member [...] Total Score - Questions 1-9 0 04/02 [facility] [place] of Occupat ional Health - Occupational Stress Questionnaire [...] file Not on file Not on file documented as of this encounter Miscellaneous Notes * Telephone Encounter - Luzma Liu RN - 01/26/2024 9:06 AM CST This was still in process at this time, Dr. Gudino read results 01/25 at 8am Was sent to pt PPING AND BOOKING MACHINE OPERATOR * Telephone Encounter - India Terrell CMA - 01/25/2024 12:41 PM STRIPPING AND BOOKING MACHINE OPERATOR Req US sound results from 01/21/2024. PPING AND BOOKING MACHINE OPERATOR documented in this encounter Plan of Treatment Upcoming Encounters Date Type Department Care Team (Late st Contact Info) Description 04/25/2024 9:30 AM STRIPPING AND BOOKING MACHINE OPERATOR Office Visit [facility] - Internal Medicine [place] [address] [place] [address] Jaylon Gudino MD [address] [place] [address] documented as of this encounter Visit Diagnoses Not on filedocumented in this encounter Additional Health Concerns Assessment Noted Time PHQ-9 Depression Total Score: 0 04/20/19 9:50 AM STRIPPING AND BOOKING MACHINE OPERATOR documented as of this encounter Care Teams Head Boys Tennis Coach Relationship Specialty Start Date End Date Jaylon Gudino MD [address] [place] [address] PCP - General Internal Medicine 01/16/16 documented as of this encounter
--- OUTSIDE RECORDS SUMMARY | 2024-03-03 11:25 | XMS_ITS | Encounter Summary ---
Author Organization [facility] Address [address] [place] [address] Phone Care Team Providers Care Biomechanical Engineer Name Role Phone Jaylon Gudino MD Primary Care Provider [phone] Encounter Details Date Type Department Care Team (Late st Contact Info) Description 01/26/2024 Telephone [facility] - [place] [address] [place] [address] Jaylon Gudino MD [address] [place] [address] Social History Tobacco Use Types Packs/Day Years Used Date Smoking Tobacco: Former Cigarettes 1 10 Passive Smoke Exposure: Past Smokeless Tobacco: Never Alcohol Use Standard Drinks/Week Comments No 0 (1 standard drink = 0.6 oz pur e alcohol) [facility] Utilities Answer Date Recorded In the past 12 months has [employer], gas, oil, or water [employer] threatened to shut off services in your home? No 04/20/2023 Social Connection and Isolat ion Panel [NHANES] Answer Date Recorded In a typical week, how many times do you talk on the phone with family, friends, or neighbors? More than three times a week 04/20/2023 Frequency of Social Gatherin gs with Friends and Family Not on file 04/20/2023 Attends Alevism Services Not on file 04/20 Active Member [...] Total Score - Questions 1-9 0 04/02 [facility] [place] of Occupat ional Health - Occupational Stress [...] Encounter - Luzma Liu RN - 01/26/2024 9:05 AM CST Images from the original note were not included. Jaylon Gudino MD 01/26/2024 8:01 AM MEDICAL GENETICIST Back to Top Liver and gallbladder ultrasound shows mild fatty liver. Sludge in gallbladder no inflammation of gallbladder. For fatty liver needs to lose weight. Read today CAL GENETICIST * Telephone Encounter - Amy Lou - 01/26/2024 8:36 AM CST Test results Don left a message on the machine after hours 1124 and is requesting his Ultrasound results Phone - [phone] CAL GENETICIST documented in this encounter Plan of Treatment Upcoming Encounters Date Type Department Care Team (Late st Contact Info) Description 04/25/2024 9:30 AM MEDICAL GENETICIST Office Visit [facility] - Internal Medicine [facility] [address] [place] [id number] Jaylon Gudino MD [address] [place] [address] documented as of this encounter Visit Diagnoses Not on filedocumented in this encounter Additional Health Concerns Assessment Noted Time PHQ-9 Depression Total Score: 0 04/20/19 9:50 AM MEDICAL GENETICIST documented as of this encounter Care Teams Biomechanical Engineer Relationship Specialty Start Date End Date Jaylon Gudino MD [address] [place] [address] PCP - General Internal Medicine 01/16/16 documented as of this encounter
--- OUTSIDE RECORDS SUMMARY | 2024-03-03 11:25 | XMS_ITS | Encounter Summary ---
Author Organization [facility] Address [address] [place] [address] Phone Care Team Providers Care Foreign Student Adviser Name Role Phone Jaylon Gudino MD Primary Care Provider [phone] Reason for Referral * Radiology Services (Routine) - Closed Specialty Diagnoses / Procedures Referred By Lilly kraft Referred To Contact Radiology Diagnoses Elevated liver enzymes Procedures US ABDOMEN LIMITED LEVEL 3 THREE ORGAN Jaylon Gudino MD [address] [place] [address] Phone: tel: fax: Referral ID Status Reason Start Date Expiration Date Visits Re quested Visits Authorized [id number] Closed 01/19/2024 1 1 AT CANDY MAKER HELPER Reason for Visit * Radiology Services (Routine) - Closed Specialty Diagnoses / Procedures Referred By Lilly kraft Referred To Contact Radiology Diagnoses Elevated liver enzymes Procedures US ABDOMEN LIMITED LEVEL 3 THREE ORGAN Jaylon Gudino MD [address] [place] [address] Phone: tel: fax: Referral ID Status Reason Start Date Expiration Date Visits Re quested Visits Authorized [id number] Closed 01/19/2024 1 1 Encounter Details Date Type Department Care Team (Late st Contact Info) Description 01/21/2024 7:09 AM NOUGAT CANDY MAKER HELPER - 01/21/2024 11:59 PM NOUGAT CANDY MAKER HELPER Hospital Encounter [facility] Ul[facility] [address] [place] [address] Jaylon Gudino MD [address] [place] [address] Discharge Disposition: Discharged to home or Selfcare Social History Tobacco Use Types Packs/Day Years Used Date Smoking Tobacco: Former Cigarettes 1 10 Passive Smoke Exposure: Past Smokeless Tobacco: Never Alcohol Use Standard Drinks/Week Comments No 0 (1 standard drink = 0.6 oz pur e alcohol) [facility] Utilities Answer Date Recorded In the past 12 months has e electric, gas, oil, or water company threatened to shut off services in your home? No 04/20/2023 Social Connection and Isolat ion Panel [NHANES] Answer Date Recorded In a typical week, how many times do you talk on the phone with family, friends, or neighbors? More than three times a week 04/20/2023 Frequency of Social Gatherin gs with Friends and Family Not on file 04/20/2023 Attends Yazidism Services Not on file 04/20 Active Member [...] Total Score - Questions 1-9 0 04/02 [facility] [place] of Occupat ional Health - Occupational Stress [...] on file documented as of this encounter Medications at Time of Discharge amLODIPine (NORVASC) 5 MG Tablet Take 1 tablet by mouth twice daily 180 Tablet 01/04/2024 aspirin EC 81 MG Tablet Delayed Response Take 81 mg by mouth daily. levothyroxine (SYNTHROID) 25 MCG TabletIndications :Elevated TSH TAKE 1 TABLET BY MOUTH 4 TIMES A WEEK 52 Tablet 07/20/2023 RABEprazole (ACIPHEX) 20 MG Tablet Delayed Response TAKE 2 TABLETS BY MOUTH ONCE DAILY TAKE 30-60 MINUTES BEFORE SUPPER 90 Tablet 03/11/2023 valsartan (DIOVAN) 160 MG Tablet Take 1 tablet by mouth once daily 90 Tablet 12/23/2023 pravastatin (PRAVACHOL) 40 MG Tablet TAKE 2 TABLETS BY MOUTH NIGHTLY 180 Tablet 11/25/2023 02/22/2024 documented as of this encounter Plan of Treatment Upcoming Encounters Date Type Department Care Team (Late st Contact Info) Description 04/25/2024 9:30 AM NOUGAT CANDY MAKER HELPER Office Visit [facility] - Internal Medicine - [place] [address] [place] [address] Jaylon Gudino MD [address] [place] [address] documented as of this encounter Procedures Procedure Name Priority Date/Time Associated Diagnosis Comments US ABDOMEN LIMITED LEVEL 3 THREE ORGAN Routine 01/21/2024 7:26 AM NOUGAT CANDY MAKER HELPER Elevated liver enzymes documented in this encounter Results * US ABDOMEN LIMITED LEVEL 3 THREE ORGAN (01/21/2024 7:26 AM NOUGAT CANDY MAKER HELPER) Anatomical Region Laterality Modality Abdomen N/A Ultrasound 01/25/2024 4:16 PM NOUGAT CANDY MAKER HELPER Impressions 01/25/2024 4:18 PM NOUGAT CANDY MAKER HELPER IMPRESSION: Mild hepatic steatosis. Gallbladder sludge. No cholelithiasis or sonographic evidence of cholecystitis. Narrative 01/25/2024 4:18 PM NOUGAT CANDY MAKER HELPER EXAM DESCRIPTION: ?? US ABDOMEN LIMITED LEVEL [...] Electronically signed by ??Destiney Aldrich M.D. TW: TW D: ??01/25/2024 4:16 PM T: ??01/25/2024 4:16 PM Report ID: [id number] Reading Location: ??[id number] Procedure Note Destiney Aldrich MD - 01/25/2024 [...] Electronically signed by Destiney Aldrich M.D. TW: Report ID: [id number] Reading Location: [id number] IMPRESSION: Mild hepatic steatosis. Gallbladder sludge. No cholelithiasis or sonographic evidence of cholecystitis. Jaylon Gudino MD [facility] ORDERABLES Final Res ult documented in this encounter Visit Diagnoses Diagnosis Elevated liver enzymes Nonspecific elevation of levels of transaminase or lactic acid dehydrogenase (LDH) documented in this encounter Additional Health Concerns Assessment Noted Time PHQ-9 Depression Total Score: 0 04/20/19 24 9:50 AM NOUGAT CANDY MAKER HELPER documented as of this encounter Care Teams Foreign Student Adviser Relationship Specialty Start Date End Date Jaylon Gudino MD [address] [place] [address] PCP - General Internal Medicine 01/16/16 documented as of this encounter
--- OUTSIDE RECORDS SUMMARY | 2024-03-03 11:25 | XMS_ITS | Encounter Summary ---
Author Organization [facility] Address [address] [place] [address] Care Team Providers Care Assistant Floor Covering Printer Name Role Phone Unavailable Primary Care Provider Unavailabl e Encounter Details Date Type Department Care Team (Late st Contact Info) Description 02/21/2022 Lab Requisition [facility] [address] [place] [phone] Dashawn Hou MD [address] [place] [address] Social History Tobacco Use Types Packs/Day Years Used Date Smoking Tobacco: Never Assessed Sex and Gender Information Value Date Recorded Sex Assigned at Not on file Gender Identity Not on file Sexual Orientation Not on file documented as of this encounter Plan of Treatment Not on file documented as of this encounter Procedures Procedure Name Priority Date/Time Associated Diagnosis Comments DERMATOPATHOLOGY Routine 02/19/2022 12:0 0 AM BAND TIER documented in this encounter Results * DERMATOPATHOLOGY (02/19/2022 12:00 AM BAND TIER) Case Report Dermatopathology Report ? Case: [id number] ? Authorizing Provider: ??Dashawn Hou MD ?Collected: ? 02/19/2022 12:00 AM ? Ordering Location: ? [facility] ?Received: ?02/21/2022 06:54 AM ? Pathologist: ? Andressa Ba MD ? Specimen: ?Skin, plantar right heel ? 2 3:11 PM [facility] DERMATOPATHOLOGY [facility]ORATORY Final Diagnosis Specimen A. SKIN, plantar right heel: VERRUCA VULGARIS (B07.8) (see microscopic description) 2 3:11 PM [facility] DERMATOPATH[facility]Y [facility] Clinical History R/O wart vs neoplasm undetermined 2 3:11 PM [facility]ATH[facility] Gross Description Specimen A: Received is one formalin filled container labeled with the patient's name and designated plantar right heel. The specimen consists of a punch biopsy measuring 6x6x6 mm, bisected. Jar 0. 2 3:11 PM [facility] DERMATOPATH[facility]Y [facility]OR[facility]ORY Microscopic Description Specimen A. SKIN, plantar right heel: There is digitated epidermal hyperplasia, hypergranulosis, vacuolated granular layer cells, and compact hyperorthokeratosis . Focal endophytic features are present. 2 3:11 PM [facility] DERMATOPATHOLOGY [facility]OR[facility] Disclaimer An external and internal positive and negative controls are appropriate for the histochemical, immunohistochemical and immunofluorescence stain(s) in this case (if any), except where stated explicitly. The performance characteristics of the stain(s) cited in this report were developed and its performance characteristic determined by the Dermatopathology Laboratory at [facility], directed by Dr. Christine Zapata. These tests need not be, and therefore are not, approved by the [place] Food and Drug Administration. The tests are used for clinical purposes. Billing Codes Specimen Charges Stain Charges 05602 1 2 3:11 PM [facility] DERMATOPATHOLOGY [facility]OR[facility]ORY Embedded Images 2 3:11 PM [facility] DERMATOPATHOLOGY LABORATORY Pathology/Cytolog y TISSUE SPECIMEN FROM SKIN / Unknown 02/19/2022 02/21/2022 6:54 AM BAND TIER Dashawn Hou MD LAB - PATHOLOGY/CYTO LOGY ORDERABLES DERMATOPATHOLOGY LABORATORY [facility] - Department of Dermatology [facility] Medicine [address] [place] [address], [address] [phone] documented in this encounter Visit Diagnoses Not on filedocumented in this encounter
--- OUTSIDE RECORDS SUMMARY | 2024-03-03 11:25 | XMS_ITS | Patient Health Summary ---
Author Organization [facility] Address [address] [place] [address] Care Team Providers Care Interactive Media Marketing Specialist Name Role Phone Unavailable Primary Care Provider Unavailabl e Note from [facility],non-owned Affiliates and Associated Physician Practices is amultiple site organization consisting of ambulatory clinics and hospital sitesin [place], [place], [place] and [place]. This disclosure is being madepursuant to the Care Everywhere program and may not contain all information available regarding this patient. Last updated 17.[facility] Social History Tobacco Use Types Packs/Day Years Used Date Smoking Tobacco: Never Assessed Sex and Gender Information Value Date Recorded Sex Assigned at Not on file Gender Identity Not on file Sexual Orientation Not on file Procedures * DERMATOPATHOLOGY(Performed 02/19/2022) Results * DERMATOPATHOLOGY (02/19/2022 12:00 AM UNINDENTURED APPRENTICE) Case Report Dermatopathology Report ? Case: [id number] ? Authorizing Provider: ??Dashawn Hou MD ?Collected: ? 02/19/2022 12:00 AM ? Ordering Location: ? [facility] ?Received: ?02/21/2022 06:54 AM ? Pathologist: ? Andressa Ba MD ? Specimen: ?Skin, plantar right heel ? 2 3:11 PM [facility] DERMATOPATHOLOGY LABORATORY Final Diagnosis Specimen A. SKIN, plantar right heel: VERRUCA VULGARIS (B07.8) (see microscopic description) 2 3:11 PM [facility] DERMATOPATHOLOGY LABORATORY Clinical History R/O wart vs neoplasm undetermined 2 3:11 PM [facility] DERMATOPATHOLOGY LABORATORY Gross Description Specimen A: Received is one formalin filled container labeled with the patient's name and designated plantar right heel. The specimen consists of a punch biopsy measuring 6x6x6 mm, bisected. Jar 0. 2 3:11 PM [facility] DERMATOPATHOLOGY LABORATORY Microscopic Description Specimen A. SKIN, plantar right heel: There is digitated epidermal hyperplasia, hypergranulosis, vacuolated granular layer cells, and compact hyperorthokeratosis . Focal endophytic features are present. 2 3:11 PM [facility] DERMATOPATHOLOGY LABORATORY Disclaimer An external and internal positive and negative controls are appropriate for the histochemical, immunohistochemical and immunofluorescence stain(s) in this case (if any), except where stated explicitly. The performance characteristics of the stain(s) cited in this report were developed and its performance characteristic determined by the Dermatopathology Laboratory at [facility], directed by Dr. Christine Zapata. These tests need not be, and therefore are not, approved by the [place] Food and Drug Administration. The tests are used for clinical purposes. Billing Codes Specimen Charges Stain Charges 48854 1 2 3:11 PM [facility] DERMATOPATHOLOGY LABORATORY Embedded Images 2 3:11 PM [facility] DERMATOPATHOLOGY LABORATORY Pathology/Cytolog y TISSUE SPECIMEN FROM SKIN / Unknown 02/19/2022 02/21/2022 6:54 AM [facility] Dashawn Hou MD LAB - PATHOLOGY/CYTO LOGY ORDERABLES DERMATOPATHOLOGY LABORATORY [facility] - Department of Dermatology [facility] Specialized Medicine [address] [place] [address], [address] [phone]
--- OUTSIDE RECORDS SUMMARY | 2024-03-03 11:25 | XMS_ITS | Referral Summary ---
Author Organization [facility] Address [address] [place] [address] Care Team Providers Care Pickle Sorter Name Role Phone Unavailable Primary Care Provider Unavailabl e Source Comments [facility],non-owned Affiliates and Associated Physician Practices is amultiple site organization consisting of ambulatory clinics and hospital sitesin [place] and [place]. This disclosure is being madepursuant to the Care Everywhere program and may not contain all information available regarding this patient. Last updated 17.[facility] Social History Tobacco Use Types Packs/Day Years Used Date Smoking Tobacco: Never Assessed Sex and Gender Information Value Date Recorded Sex Assigned at Not on file Gender Identity Not on file Sexual Orientation Not on file Plan of Treatment Not on file
--- OUTSIDE RECORDS SUMMARY | 2024-03-03 11:25 | XMS_ITS | Clinical Summary ---
Author Organization [facility] Address [address] [place] [address] Care Team Providers Care Kettle Worker Name Role Phone Unavailable Primary Care Provider Unavailabl e Source Comments [facility],non-owned Affiliates and Associated Physician Practices is amultiple site organization consisting of ambulatory clinics and hospital sitesin [place], [place], [place] and [place]. This disclosure is being madepursuant to the Care Everywhere program and may not contain all information available regarding this patient. Last updated 17.[facility] Social History Tobacco Use Types Packs/Day Years Used Date Smoking Tobacco: Never Assessed Sex and Gender Information Value Date Recorded Sex Assigned at Not on file Gender Identity Not on file Sexual Orientation Not on file Plan of Treatment Health Maintenance Due Date Last Done Comments MEDICARE AWV ? 12 MONTHS 1945 DTAP/TDAP/TD VACCINES (1 - Tdap) 09/04/1962 ZOSTER VACCINE (1 of 2) 09/04/1993 PNEUMOCOCCAL VACCINE 65+ (1 of 1 - PCV) 09/04/2008 Respiratory Syncytial Virus (RSV) Vaccine Pt: or over 60 yrs (1 - 1-dose 75+ series) 09/04/2018 DEPRESSION SCREENING 03/02/2023 COVID-19 VACCINE ( - 2023-2 5 season) 2023 INFLUENZA VACCINE (#1) 2023 HEPATITIS B VACCINE Aged Out No longe r eligible based on patient's age to complete this topic HIB VACCINE Aged Out No longer eligi ble based on patient's age to complete this topic HPV VACCINE Aged Out No longer eligi ble based on patient's age to complete this topic MENINGOCOCCAL VACCINE Aged Out No parish maile eligible based on patient's age to complete this topic
--- OUTSIDE RECORDS SUMMARY | 2024-03-03 11:25 | XMS_ITS | Encounter Summary ---
Author Organization [facility] Address [address] [place] [address] Phone Care Team Providers Care Naphthalene Operator Helper Name Role Phone Jaylon Gudino MD Primary Care Provider [phone]- [phone] Reason for Visit * Reason Comments Medication Refill Encounter Details Date Type Department Care Team (Late st Contact Info) Description 02/21/2024 Refill [facility] Medical Group - Internal Medicine - [place] [address] [place] [phone] Jaylon Gudino MD [address] [facility] [place] [address] Medication Refill Social History Tobacco Use Types Packs/Day Years Used Date Smoking Tobacco: Former Cigarettes 1 10 Passive Smoke Exposure: Past Smokeless Tobacco: Never Alcohol Use Standard Drinks/Week Comments No 0 (1 standard drink = 0.6 oz pur e alcohol) [facility] Utilities Answer Date Recorded In the past 12 months has [employer] electric, gas, oil, or water company threatened [...] and Family Not on file 04/20/2023 Attends Mormon Services Not on file 04/20 Active Member [...] Total Score - Questions 1-9 0 04/02 [facility] of Occupat ional Health - Occupational Stress [...] Telephone Encounter - Luzma Liu RN - 02/22/2024 8:13 AM CST Per nursing clinical judgement, provider to review and approve the medication(s) order(s) if appropriate. Requested Prescriptions Pending Prescriptions Disp Refills pravastatin (PRAVACHOL) 40 MG Tablet [Pharmacy Med Name: Pravastatin Sodium 40 MG Oral Tablet] 180 Tablet 0 Sig: TAKE 2 TABLETS BY MOUTH NIGHTLY Hmg CoA Reductase Inhibitors Protocol Passed - 02/22/2024 8:13 AM Passed - Visit with relevant provider in past 12 months or upcoming 90 days Recent Visits Date Type Provider Dept 10/19/23 Office Visit Jaylon Gudino MD [facility] [place] 04/20/23 Office Visit Jaylon Gudino MD [facility] Showing recent visits within past 365 days and meeting all other requirements Future Appointments Date Type Provider Dept 04/25/24 Appointment [facility] Show[facility] future appointments within next 90 days and meeting all other requirements Passed - Lipid panel in past 12 months LDL Date Value Ref Range Status 10/19/2023 79 <130 mg/dL Final HDL CHOLESTEROL Date Value Ref Range Status 10/19/2023 64 >40 mg/dL Final CHOLESTEROL Date Value Ref Range Status 10/19/2023 175 <200 mg/dL Final TRIGLYCERIDES Date Value Ref Range Status 10/19/2023 161 (H) <150 mg/dL Final VLDL Date Value Ref Range Status 10/19/2023 32 10 - 50 mg/dL Final CHOL/HDL RATIO Date Value Ref Range Status 10/19/2023 2.7 0.0 - 4.4 Final NON-HDL CHOLESTEROL Date Value Ref Range Status 10/19/2023 111 <130 mg/dL Final Passed - CMP in past 12 months SODIUM Date Value Ref Range Status 10/19/2023 142 136 - 145 mmol/L Final POTASSIUM Date Value Ref Range Status 10/19/2023 4.3 3.5 - 5.1 mmol/L Final CHLORIDE Date Value Ref Range Status 10/19/2023 109 (H) 98 - 107 mmol/L Final CO2, VENOUS Date Value Ref Range Status 10/19/2023 25 22 - 30 mmol/L Final ANION GAP Date Value Ref Range Status 10/19/2023 12.3 <18.0 mmol/L Final GLUCOSE Date Value Ref Range Status 10/19/2023 112 (H) 70 - 99 mg/dL Final BUN Date Value Ref Range Status 10/19/2023 21 8 - 26 mg/dL Final CREATININE, BLOOD Date Value Ref Range Status 10/19/2023 1.29 0.70 - 1.30 mg/dL Final BUN/CREATININE RATIO Date Value Ref Range Status 10/19/2023 16 12 - 20 ratio Final TOTAL PROTEIN Date Value Ref Range Status 01/18/2024 7.4 6.3 - 8.2 g/dL Final ALBUMIN Date Value Ref Range Status 01/18/2024 4.7 3.5 - 5.0 g/dL Final A/G RATIO Date Value Ref Range Status 10/19/2023 1.8 1.0 - 2.2 Final CALCIUM Date Value Ref Range Status 10/19/2023 10.0 8.7 - 10.5 mg/dL Final T BILI Date Value Ref Range Status 01/18/2024 0.5 0.2 - 1.2 mg/dL Final SGOT (AST) Date Value Ref Range Status 01/18/2024 40 (H) 5 - 34 U/L Final SGPT (ALT) Date Value Ref Range Status 01/18/2024 42 0 - 55 U/L Final ALKALINE PHOSPHATASE Date Value Ref Range Status 01/18/2024 65 40 - 150 U/L Final GFR, EST. NONAFRICAN Date Value Ref Range Status 10/19/2023 54 (L) >=60 Final GFR, EST. Date Value Ref Range Status 10/19/2023 >60 >=60 Final GFR, ESTIMATED Date Value Ref Range Status 10/19/2023 56 (L) >=60 Final Comment: Creatinine Clearance is the preferred criteria for selecting drug dose adjustments in renally impaired patients. The GFR is provided as additional pertinent clinical information. GFR is reported in mL/min/1.73 sq m. Calculation based on the Chronic Kidney Disease Epidemiology Collaboration (CKD- EPI) equation refitwithout adjustment for race. IS THE PATIENT REQUIRED TO BE FASTING? Date Value Ref Range Status 10/19/2023 No Final TEACHER documented in this encounter Plan of Treatment Upcoming Encounters Date Type Department Care Team (Late st Contact Info) Description 04/25/2024 9:30 AM EMD TEACHER Office Visit [facility] - [facility] [address] [place] [address] Jaylon Gudino MD [address] [place] [address] documented as of this encounter Visit Diagnoses Not on filedocumented in this encounter Additional Health Concerns Assessment Noted Time PHQ-9 Depression Total Score: 0 04/20/19 24 9:50 AM EMD TEACHER documented as of this encounter Care Teams Naphthalene Operator Helper Relationship Specialty Start Date End Date Jaylon Gudino MD [address] [place] [address] PCP - General Internal Medicine 01/16/16 documented as of this encounter
--- OUTSIDE RECORDS SUMMARY | 2024-03-03 11:26 | XMS_ITS | Encounter Summary ---
Author Organization [facility] Address [address] [place] [address] Phone Care Team Providers Care Surgery Specialist Name Role Phone Jaylon Gudino MD Primary Care Provider [phone]- [phone] Reason for Visit * Reason Comments Medication Refill Encounter Details Date Type Department Care Team (Late st Contact Info) Description 01/03/2024 Refill [facility] Medical Group - Internal Medicine - [place] [address] [place] [phone] Jaylon Gudino MD [address] [facility] [place] [address] Medication Refill Social History Tobacco Use Types Packs/Day Years Used Date Smoking Tobacco: Former Cigarettes 1 10 Passive Smoke Exposure: Past Smokeless Tobacco: Never Alcohol Use Standard Drinks/Week Comments No 0 (1 standard drink = 0.6 oz pur e alcohol) [facility] Utilities Answer Date Recorded In the past 12 months has [employer] electric, gas, oil, or water company threatened [...] and Family Not on file 04/20/2023 Attends Orthodox Services Not on file 04/20 Active Member [...] Total Score - Questions 1-9 0 04/02 [facility] of Occupat ional Health - Occupational Stress [...] Telephone Encounter - Luzma Liu RN - 01/04/2024 8:27 AM CST Medication(s) refilled and signed per [facility] Chronic Medication Refill Standing Order for Pediatricand Adult Patients. Requested Prescriptions Pending Prescriptions Disp Refills amLODIPine (NORVASC) 5 MG Tablet [Pharmacy Med Name: amLODIPine Besylate 5 MG Oral Tablet] 180 Tablet 0 Sig: Take 1 tablet by mouth twice daily Calcium-Channel Blockers Protocol Passed - 01/03/2024 8:58 PM Passed - BP on record in the past year Clinician-entered: BP Readings from Last 3 Encounters: 10/19/23 132/58 04/20/23 110/58 09/29/22 122/58 Patient-entered: No data recorded Passed - Visit with relevant provider in past 12 months or upcoming 90 days Recent Visits Date Type Provider Dept 10/19/23 Office Visit Jaylon Gudino MD [facility] [place] 04/20/23 Office Visit Jaylon Gudino MD [facility] [place] Showing recent visits within past 365 days and meeting all other requirements Future Appointments No visits were found meeting these conditions. Showing future appointments within next 90 days and meeting all other requirements LBENZENE CRACKING SUPERVISOR documented in this encounter Plan of Treatment Upcoming Encounters Date Type Department Care Team (Late st Contact Info) Description 04/25/2024 9:30 AM ETHYLBENZENE CRACKING SUPERVISOR [facility] Visit [facility] - [facility] - [place] [address] [place] [address] Jaylon Gudino MD [address] [place] [address] documented as of this encounter Visit Diagnoses Not on filedocumented in this encounter Additional Health Concerns Assessment Noted Time PHQ-9 Depression Total Score: 0 02/19/20 24 9:50 AM ETHYLBENZENE CRACKING SUPERVISOR documented as of this encounter Care Teams Surgery Specialist Relationship Specialty Start Date End Date Jaylon Gudino MD [address] [place] [address] PCP - General Internal Medicine 01/16/16 documented as of this encounter
--- OUTSIDE RECORDS SUMMARY | 2024-03-03 11:26 | XMS_ITS | Encounter Summary ---
Author Organization [facility] Address [address] [place] [address] Phone Care Team Providers Care Aerial Photogrammetrist Name Role Phone Jaylon Gudino MD Primary Care Provider [phone]- [phone] Reason for Visit * Reason Comments Medication Refill Encounter Details Date Type Department Care Team (Late st Contact Info) Description 11/24/2023 Refill [facility] Medical Group - Internal Medicine - [place] [address] [place] [phone] Jaylon Gudino MD [address] [facility] [place] [address] Medication Refill Social History Tobacco Use Types Packs/Day Years Used Date Smoking Tobacco: Former Cigarettes 1 10 Passive Smoke Exposure: Past Smokeless Tobacco: Never Alcohol Use Standard Drinks/Week Comments No 0 (1 standard drink = 0.6 oz pur e alcohol) [facility] Utilities Answer Date Recorded In the past 12 months has [employer] electric, gas, oil, or water company threatened [...] and Family Not on file 04/20/2023 Attends Jew Services Not on file 04/20 Active Member [...] Total Score - Questions 1-9 0 04/02 [facility] [place] of Occupat ional Health - Occupational Stress [...] Telephone Encounter - Luzma Liu RN - 11/25/2023 8:17 AM CDT Per nursing clinical judgement, provider to review and approve the medication(s) order(s) if appropriate. Requested Prescriptions Pending Prescriptions Disp Refills pravastatin (PRAVACHOL) 40 MG Tablet [Pharmacy Med Name: Pravastatin Sodium 40 MG Oral Tablet] 180 Tablet 0 Sig: TAKE 2 TABLETS BY MOUTH NIGHTLY Hmg CoA Reductase Inhibitors Protocol Passed - 11/24/2023 7:59 PM Passed - Visit with relevant provider in past 12 months or upcoming 90 days Recent Visits Date Type Provider Dept 10/19/23 [facility]/20[facility]23 [facility] Showing recent visits within [...] TOTAL PROTEIN Date Value Ref Range Status 10/19/2023 7.1 6.3 - 8.2 g/dL Final ALBUMIN Date Value Ref Range Status 10/19/2023 4.6 3.5 - 5.0 g/dL Final A/G RATIO Date Value Ref Range Status 10/19/2023 1.8 1.0 - 2.2 Final CALCIUM Date Value Ref Range Status 10/19/2023 10.0 8.7 - 10.5 mg/dL Final T BILI Date Value Ref Range Status 10/19/2023 0.6 0.2 - 1.2 mg/dL Final SGOT (AST) Date Value Ref Range Status 10/19/2023 44 (H) 5 - 34 U/L Final SGPT (ALT) Date Value Ref Range Status 10/19/2023 34 0 - 55 U/L Final ALKALINE PHOSPHATASE Date Value Ref Range Status 10/19/2023 52 40 - 150 U/L Final GFR, EST. [...] Value Ref Range Status 10/19/2023 No Final documented in this encounter Plan of Treatment Upcoming Encounters Date Type Department Care Team (Late st Contact Info) Description 04/25/2024 9:30 AM CABIN SERVICE AGENT [facility] Visit [facility] [address] [place] [address] Jaylon Gudino MD [address] [facility] [facility] [place] [address] documented as of this encounter Visit Diagnoses Not on filedocumented in this encounter Additional Health Concerns Assessment Noted Time PHQ-9 Depression Total Score: 0 04/20/19 9:50 AM CABIN SERVICE AGENT documented as of this encounter Care Teams Aerial Photogrammetrist Relationship Specialty Start Date End Date Jaylon Gudino MD [address] [place] [address] PCP - General Internal Medicine 01/16/16 documented as of this encounter
--- OUTSIDE RECORDS SUMMARY | 2024-03-03 11:26 | XMS_ITS | Encounter Summary ---
Author Organization [facility] Address [address] [place] [address] Phone Care Team Providers Care Manager Van Name Role Phone Jaylon Gudino MD Primary Care Provider [phone] Reason for Visit * Reason Comments Medication Refill Encounter Details Date Type Department Care Team (Late st Contact Info) Description 09/29/2023 Refill [facility] Medical Group - Internal Medicine - [place] [address] [place] [phone] Jaylon Gudino MD [address] [place] [address] Medication Refill Social History Tobacco Use Types Packs/Day Years Used Date Smoking Tobacco: Former Cigarettes 1 10 Passive Smoke Exposure: Past Smokeless Tobacco: Never Alcohol Use Standard Drinks/Week Comments No 0 (1 standard drink = 0.6 oz pur e alcohol) [facility] Utilities Answer Date Recorded In the past 12 months has [email or web address] electric, gas, oil, or water company threatened [...] and Family Not on file 04/20/2023 Attends Hoahaoism Services Not on file 04/20 Active Member [...] Total Score - Questions 1-9 0 04/02 [facility] [place] of Occupat ional Health - Occupational Stress [...] Telephone Encounter - Luzma Liu RN - 09/29/2023 9:56 AM CDT Medication(s) [facility] Medication Refill Standing Order for Pediatricand Adult Patients. Requested Prescriptions Pending Prescriptions Disp Refills amLODIPine (NORVASC) 5 MG Tablet [Pharmacy Med Name: amLODIPine Besylate 5 MG Oral Tablet] 180 Tablet 0 Sig: Take 1 tablet by mouth twice daily Calcium-Channel Blockers Protocol Passed - 09/29/2023 9:38 AM Passed - BP on record in the past year Clinician-entered: BP Readings from Last 3 Encounters: 04/20/23 110/58 09/29/22 122/58 03/31/22 136/60 Patient-entered: No data recorded Passed - Visit with relevant provider in past 12 months or upcoming 90 days Recent Visits Date Type Provider Dept 04/20/23 Office Visit Jaylon Gudino MD [facility] [place] 09/29/22 Office Visit Jaylon Gudino MD [facility] [place] Showing recent visits within past 365 days and meeting all other requirements Future Appointments Date Type Provider Dept 10/19/23 Appointment Jaylon Gudino MD [facility] [place] Showing future appointments within next 90 days and meeting all other requirements documented in this encounter Plan of Treatment Upcoming Encounters Date Type Department Care Team (Late st Contact Info) Description 04/25/2024 9:30 AM PAPER CUTTING MACHINE OPERATOR Office Visit [facility] - Internal Medicine - [place] [address] [place] [place] [phone] Jaylon Gudino MD [address] [place] [address] documented as of this encounter Visit Diagnoses Not on filedocumented in this encounter Additional Health Concerns Assessment Noted Time PHQ-9 Depression Total Score: 0 04/20/19 24 9:50 AM PAPER CUTTING MACHINE OPERATOR documented as of this encounter Care Teams Manager Van Relationship Specialty Start Date End Date Jaylon Gudino MD [address] [place] [address] PCP - General Internal Medicine 01/16/16 documented as of this encounter
--- OUTSIDE RECORDS SUMMARY | 2024-03-03 11:26 | XMS_ITS | Encounter Summary ---
Author Organization [facility] Address [address] [place] [address] Phone Care Team Providers Care [employer] Delivery Driver Name Role Phone Jaylon Gudino MD Primary Care Provider [phone] Encounter Details Date Type Department Care Team (Late st Contact Info) Description 01/18/2024 10:30 AM PURCHASING SUPERVISOR Lab [facility] Medical Group - Internal Medicine - [place] [address] [place] [address] [facility] Elevated liver enzymes Discharge Disposition: Discharged to home or Selfcare Social History Tobacco Use Types Packs/Day Years Used Date Smoking Tobacco: Former Cigarettes 1 10 Passive Smoke Exposure: Past Smokeless Tobacco: Never Alcohol Use Standard Drinks/Week Comments No 0 (1 standard drink = 0.6 oz pur e alcohol) [facility] Utilities Answer Date Recorded In the past 12 months has [employer], gas, oil, or water [employer] threatened to shut off services in your home? No 04/20/2023 Social Connection and Isolat ion Panel [NHANES] Answer Date Recorded In a typical week, how many times do you talk on the phone with family, friends, or neighbors? More than three times a week 04/20/2023 Frequency of Social Gatherin gs with Friends and Family Not on file 04/20/2023 Attends Congregational Services Not on file 04/20 Active Member [...] Total Score - Questions 1-9 0 04/02 [facility] [place] of Occupat ional Health - Occupational Stress [...] on file documented as of this encounter Progress Notes * Luzma Liu RN - 01/18/2024 10:30 AM CST Bacilio is here for labs per order of Dr. Gudino. Verbal consent was obtained. Bacilio tolerated the labs well without incident. Drawn from left AC HASING SUPERVISOR documented in this encounter Plan of Treatment Upcoming Encounters Date Type Department Care Team (Late st Contact Info) Description 04/25/2024 9:30 AM PURCHASING SUPERVISOR Office Visit [facility] - [place] [address] [place] [address] Jaylon Gudino MD [address] [place] [address] documented as of this encounter Procedures Procedure Name Priority Date/Time Associated Diagnosis Comments HEPATIC FUNCTION PANEL Routine 01/18/2024 10:13 AM PURCHASING SUPERVISOR Elevated liver enzymes documented in this encounter Results * (ABNORMAL) HEPATIC FUNCTION PANEL (01/18/2024 10:13 AM PURCHASING SUPERVISOR) T BILI 0.5 0.2 - 1.2 mg/dL 01/18/2024 4:10 PM PURCHASING SUPERVISOR [facility] BILIRUBIN,DIRECT 0.1 0.0 - 0.5 mg/dL 01/18/2024 4:10 PM PURCHASING SUPERVISOR [facility] ALKALINE PHOSPHATASE 65 40 - 150 U/L 01/18/2024 4:10 PM PURCHASING SUPERVISOR [facility] SGOT (AST) 40(H) 5 - 34 U/L 01/18/2024 4:10 PM PURCHASING SUPERVISOR [facility] SGPT (ALT) 42 0 - 55 U/L 01/18/2024 4:10 PM PURCHASING SUPERVISOR [facility] TOTAL PROTEIN 7.4 6.3 - 8.2 g/dL 01/18/2024 4:10 PM PURCHASING SUPERVISOR [facility] ALBUMIN 4.7 3.5 - 5.0 g/dL 01/18/2024 4:10 PM PURCHASING SUPERVISOR [facility] Blood Venipuncture / Unknown 01/18/2024 10:13 AM PURCHASING SUPERVISOR 01/18/2024 10:18 AM PURCHASING SUPERVISOR Jaylon Gudino MD CHEMISTRY ORDERABLES Final Result [facility] [place] [address] documented in this encounter Visit Diagnoses Diagnosis Elevated liver enzymes Nonspecific elevation of levels of transaminase or lactic acid dehydrogenase (LDH) documented in this encounter Additional Health Concerns Assessment Noted Time PHQ-9 Depression Total Score: 0 04/20/19 24 9:50 AM PURCHASING SUPERVISOR documented as of this encounter Care Teams [employer] Delivery Driver Relationship Specialty Start Date End Date Jaylon Gudino MD [address] [place] [address] PCP - General Internal Medicine 01/16/16 documented as of this encounter
--- OUTSIDE RECORDS SUMMARY | 2024-03-03 11:26 | XMS_ITS | Encounter Summary ---
Author Organization [facility] Address [address] [place] [address] Phone Care Team Providers Care Luggage Repairer Name Role Phone Jaylon Gudino MD Primary Care Provider Encounter Details Date Type Department Care Team (Late st Contact Info) Description 10/20/2023 Telephone [facility] Medicine - [place] [address] [place] [address] Jaylon Gudino MD [address] [place] [address] Social History Tobacco Use Types Packs/Day Years Used Date Smoking Tobacco: Former Cigarettes 1 10 Passive Smoke Exposure: Past Smokeless Tobacco: Never Alcohol Use Standard Drinks/Week Comments No 0 (1 standard drink = 0.6 oz pur e alcohol) [facility] Utilities Answer Date Recorded In the past 12 months has [employer], gas, oil, or water [employer] threatened to shut off services in your home? No 04/20/2023 Social Connection and Isolat ion Panel [NHANES] Answer Date Recorded In a typical week, how many times do you talk on the phone with family, friends, or neighbors? More than three times a week 04/20/2023 Frequency of Social Gatherin gs with Friends and Family Not on file 04/20/2023 Attends Quaker Services Not on file 04/20 Active Member [...] Total Score - Questions 1-9 0 04/02 [facility] of Occupat ional Health - Occupational Stress [...] Telephone Encounter - Luzma Liu RN - 10/20/2023 8:50 AM CDT ----- Message from Kofi Gudino sent at 10/20/2023 7:55 AM CDT ----- CBC, lipids, magnesium level, PSA-okay CMP-liver enzymes mildly elevated. Needs to avoid alcohol. Repeat liver function test in 3 months. documented in this encounter Plan of Treatment Upcoming Encounters Date Type Department Care Team (Late st Contact Info) Description 04/25/2024 9:30 AM ORAL SURGERY PHYSICIAN Office Visit [facility] [address] [place] [phone] Jaylon Gudino MD [address] [place] [address] documented as of this encounter Results * (ABNORMAL) HEPATIC FUNCTION PANEL (01/18/2024 10:13 AM ORAL SURGERY PHYSICIAN) T BILI 0.5 0.2 - 1.2 mg/dL 01/18/2024 4:10 PM ORAL SURGERY PHYSICIAN [facility] BILIRUBIN,DIRECT 0.1 0.0 - 0.5 mg/dL 01/18/2024 4:10 PM ORAL SURGERY PHYSICIAN [facility] ALKALINE PHOSPHATASE 65 40 - 150 U/L 01/18/2024 4:10 PM ORAL SURGERY PHYSICIAN [facility] SGOT (AST) 40(H) 5 - 34 U/L 01/18/2024 4:10 PM ORAL SURGERY PHYSICIAN [facility] SGPT (ALT) 42 0 - 55 U/L 01/18/2024 4:10 PM ORAL SURGERY PHYSICIAN [facility] TOTAL PROTEIN 7.4 6.3 - 8.2 g/dL 01/18/2024 4:10 PM ORAL SURGERY PHYSICIAN [facility] ALBUMIN 4.7 3.5 - 5.0 g/dL 01/18/2024 4:10 PM ORAL SURGERY PHYSICIAN [facility] Blood Venipuncture / Unknown 01/18/2024 10:13 AM ORAL SURGERY PHYSICIAN 01/18/2024 10:18 AM ORAL SURGERY PHYSICIAN Jaylon Gudino MD CHEMISTRY ORDERABLES Final Result [facility] [place] [address] documented in this encounter Visit Diagnoses Diagnosis Elevated liver enzymes- Primary Nonspecific elevation of levels of transaminase or lactic acid dehydrogenase (LDH) documented in this encounter Additional Health Concerns Assessment Noted Time PHQ-9 Depression Total Score: 0 04/20/19 24 9:50 AM ORAL SURGERY PHYSICIAN documented as of this encounter Care Teams Luggage Repairer Relationship Specialty Start Date End Date Jaylon Gudino MD [address] [place] [address] PCP - General Internal Medicine 01/16/16 documented as of this encounter
--- OUTSIDE RECORDS SUMMARY | 2024-03-03 11:26 | XMS_ITS | Encounter Summary ---
Author Organization [facility] Address [address] [place] [address] Phone Care Team Providers Care Small Business Sales Representative Name Role Phone Jaylon Gudino MD Primary Care Provider [phone] Reason for Referral * Radiology Services (Routine) - Closed Specialty Diagnoses / Procedures Referred By Lilly kraft Referred To Contact Radiology Diagnoses Elevated liver enzymes Procedures US ABDOMEN LIMITED LEVEL 3 THREE ORGAN Jaylon Gudino MD [address] [place] [address] Phone: tel: fax: Referral ID Status Reason Start Date Expiration Date Visits Re quested Visits Authorized [id number] Closed 01/19/2024 1 1 SPOOLER Encounter Details Date Type Department Care Team (Late st Contact Info) Description 01/19/2024 Telephone [facility] - Internal Medicine - [place] [address] [place] [address] Jaylon Gudino MD [address] [place] [address] Social History Tobacco Use Types Packs/Day Years Used Date Smoking Tobacco: Former Cigarettes 1 10 Passive Smoke Exposure: Past Smokeless Tobacco: Never Alcohol Use Standard Drinks/Week Comments No 0 (1 standard drink = 0.6 oz pur e alcohol) [facility] Utilities Answer Date Recorded In the past 12 months has th e electric, gas, oil, or water company [...] and Family Not on file 04/20/2023 Attends Religion Services Not on file 04/20 Active Member [...] Total Score - Questions 1-9 0 04/02 [facility] [place] of Occupat ional Health - Occupational Stress [...] Telephone Encounter - Luzma Liu RN - 01/19/2024 9:05 AM CST ----- Message from Kofi Gudino sent at 01/18/2024 4:24 PM WIRE SPOOLER ----- Hepatic function panel-liver enzymes still elevated. Needs to get liver ultrasound. SPOOLER documented in this encounter Plan of Treatment Upcoming Encounters Date Type Department Care Team (Late st Contact Info) Description 04/25/2024 9:30 AM WIRE SPOOLER Office Visit [facility] - Internal Medicine - [place] [address] [place] [id number] Jaylon Gudino MD [address] [place] [address] documented as of this encounter Results * US ABDOMEN LIMITED LEVEL 3 THREE ORGAN (01/21/2024 7:26 AM WIRE SPOOLER) Anatomical Region Laterality Modality Abdomen N/A Ultrasound 01/25/2024 4:16 PM WIRE SPOOLER Impressions 01/25/2024 4:18 PM WIRE SPOOLER IMPRESSION: Mild hepatic steatosis. Gallbladder sludge. No cholelithiasis or sonographic evidence of cholecystitis. Narrative 01/25/2024 4:18 PM WIRE SPOOLER EXAM DESCRIPTION: ?? US ABDOMEN LIMITED LEVEL [...] PM T: ??01/25/2024 4:16 PM Report ID: [id number] Reading Location: ??[id number] Procedure Note Destiney Aldrich MD - 01/25/2024 [...] Electronically signed by Destiney Aldrich M.D. TW: ALBINO Report ID: [id number] Reading Location: [id number] IMPRESSION: Mild hepatic steatosis. Gallbladder sludge. No cholelithiasis or sonographic evidence of cholecystitis. us Jaylon Gudino MD IMG US ORDERABLES Final Res ult documented in this encounter Visit Diagnoses Diagnosis Elevated liver enzymes- Primary Nonspecific elevation of levels of transaminase or lactic acid dehydrogenase (LDH) Elevated liver enzymes Nonspecific elevation of levels of transaminase or lactic acid dehydrogenase (LDH) documented in this encounter Additional Health Concerns Assessment Noted Time PHQ-9 Depression Total Score: 0 04/20/19 24 9:50 AM WIRE SPOOLER documented as of this encounter Care Teams Small Business Sales Representative Relationship Specialty Start Date End Date Jaylon Gudino MD [address] [place] [address] PCP - General Internal Medicine 01/16/16 documented as of this encounter
--- OUTSIDE RECORDS SUMMARY | 2024-03-03 11:26 | XMS_ITS | Encounter Summary ---
Author Organization [facility] Address [address] [place] [address] Phone Care Team Providers Care Delivery Architect Name Role Phone Jaylon Gudino MD Primary Care Provider [phone] Reason for Visit * Reason Comments Medication Refill Encounter Details Date Type Department Care Team (Late st Contact Info) Description 12/23/2023 Refill [facility] - Internal Medicine - [place] [address] [place] [phone] Jaylon Gudino MD [address] [facility] [place] [address] Medication Refill Social History Tobacco Use Types Packs/Day Years Used Date Smoking Tobacco: Former Cigarettes 1 10 Passive Smoke Exposure: Past Smokeless Tobacco: Never Alcohol Use Standard Drinks/Week Comments No 0 (1 standard drink = 0.6 oz pur e alcohol) [facility] Utilities Answer Date Recorded In the past 12 months has [employer] electric, gas, oil, or water company threatened [...] and Family Not on file 04/20/2023 Attends Restorationist Services Not on file 04/20 Active Member [...] Total Score - Questions 1-9 0 04/02 [facility] [place] of Occupat ional Health - Occupational Stress [...] Telephone Encounter - Luzma Liu RN - 12/23/2023 8:17 AM CDT Medication(s) [facility] and [facility] Medication Refill Standing Order for Pediatricand Adult Patients. Requested Prescriptions Pending Prescriptions Disp Refills valsartan (DIOVAN) 160 MG Tablet [Pharmacy Med Name: Valsartan 160 MG Oral Tablet] 90 Tablet 0 Sig: Take 1 tablet by mouth once daily ARB Protocol Passed - 12/23/2023 6:52 AM Passed - Serum potassium on record in past 12 months POTASSIUM Date Value Ref Range Status 10/19/2023 4.3 3.5 - 5.1 mmol/L Final Passed - BP on record in the past year Clinician-entered: BP Readings from Last 3 Encounters: 10/19/23 132/58 04/20/23 110/58 09/29/22 122/58 Patient-entered: No data recorded Passed - Visit with relevant provider in past year or upcoming 90 days Recent Visits Date Type Provider Dept 10/19/23 Office Visit Jaylon Gudino MD [facility] [place] [place] 04/20/23 Office Visit Jaylon Gudino MD [facility] [place] Showing recent visits within past 365 days and meeting all other requirements Future Appointments No visits were found meeting these conditions. Showing future appointments within next 90 days and meeting all other requirements Passed - GFR on record in past 12 months GFR, EST. NONAFRICAN Date Value Ref Range Status 10/19/2023 54 (L) >=60 Final documented in this encounter Plan of Treatment Upcoming Encounters Date Type Department Care Team (Late st Contact Info) Description 04/25/2024 9:30 AM SYSTEMS SUPPORT ENGINEER Office Visit [facility] - Internal Medicine - [place] [address] [place] [phone] Jaylon Gudino MD [address] [place] [address] documented as of this encounter Visit Diagnoses Not on filedocumented in this encounter Additional Health Concerns Assessment Noted Time PHQ-9 Depression Total Score: 0 04/20/19 24 9:50 AM SYSTEMS SUPPORT ENGINEER documented as of this encounter Care Teams Delivery Architect Relationship Specialty Start Date End Date Jaylon Gudino MD [address] [place] [address] PCP - General Internal Medicine 01/16/16 documented as of this encounter
--- OUTSIDE RECORDS SUMMARY | 2024-03-03 11:26 | XMS_ITS | Encounter Summary ---
Author Organization [employer] Care Team Providers Care Motivational Speaker Name Role Phone Jaylon Gudino MD Primary Care Provider [phone]- [phone] Encounter Details Date Type Department Care Team (Latest Contact Info) Description 10/19/2023 Travel Social History Tobacco Use Types Packs/Day Years Used Date Smoking Tobacco: Former Cigarettes 1 10 Passive Smoke Exposure: Past Smokeless Tobacco: Never Alcohol Use Standard Drinks/Week Comments No 0 (1 standard drink = 0.6 oz pur e alcohol) [facility] Utilities Answer Date Recorded In [...] and Family Not on file 04/20/2023 Attends Anabaptism Services Not on file 04/20 Active Member [...] Total Score - Questions 1-9 0 04/02 [facility] of Occupat ional Health - Occupational Stress [...] st Contact Info) Description 04/25/2024 9:30 AM AIR CONDITIONING ENGINEER Office Visit [facility] - Internal Medicine - [place] [address] [place] [address] Jaylon Gudino MD [address] [place] [address] documented as of this encounter Visit Diagnoses Not on filedocumented in this encounter Additional Health Concerns Assessment Noted Time PHQ-9 Depression Total Score: 0 04/20/19 24 9:50 AM AIR CONDITIONING ENGINEER documented as of this encounter Care Teams Motivational Speaker Relationship Specialty Start Date End Date Jaylon Gudino MD [address] [place] [address] PCP - General Internal Medicine 01/16/16 documented as of this encounter
--- OUTSIDE RECORDS SUMMARY | 2024-03-03 11:26 | XMS_ITS | Encounter Summary ---
Author Organization [facility] Address [address] [place] [address] Phone Care Team Providers Care Youth Liaison Officer Name Role Phone Jaylon Gudino MD Primary Care Provider [phone] Reason for Visit * Reason Comments Hypertension Constant fatigue, we nt to urgent care a month ago was given antibiotics for a virus and still has lung irritation from it Encounter Details Date Type Department Care Team (Late st Contact Info) Description 10/19/2023 9:45 AM CDT Office Visit [facility] - Internal Medicine - [place] [address] [place] [address] Jaylon Gudino MD [address] [facility] [address] Essential hypertension, benign (Primary Dx); Other hyperlipidemia; Other specified hypothyroidism; Chronic fatigue; Screening for prostate cancer; Hyperglycemia Discharge Disposition: Discharged to home or Selfcare Social History Tobacco Use Types Packs/Day Years Used Date Smoking Tobacco: Former Cigarettes 1 10 Passive Smoke Exposure: Past Smokeless Tobacco: Never Tobacco Cessation:Counseling Given: Not Answered Alcohol Use Standard Drinks/Week Comments No 0 (1 standard drink = 0.6 oz pur e alcohol) [facility] Utilities Answer Date Recorded In the past 12 months has [employer], gas, oil, or water company threatened [...] and Family Not on file 04/20/2023 Attends [employer] Not on file 04/20 Active Member [...] Total Score - Questions 1-9 0 04/02 [facility] - Occupational [...] on file documented as of this encounter Last Filed Vital Signs Vital Sign Reading [...] Mass Index 25.75 10/19/2023 9:44 AM CDT documented in this encounter Progress Notes * Medeiros, May - 10/19/2023 9:45 AM CDT Bacilio Ramirez, 78 y.o., male is here for Hypertension (Constant fatigue, went to urgent care a month ago was given antibiotics for a virus and still has lung irritation from it) Medication Refills: Patient reports/denies need for medication refills. Orders Pended: no Requested Prescriptions No prescriptions requested or ordered in this encounter Home Medications Medication Sig Start Date End Date Taking? Authorizing Provider amLODIPine (NORVASC) 5 MG Tablet Take 1 tablet by mouth twice daily 09/29/23 Yes Jaylon Gudino MD aspirin EC 81 MG Tablet Delayed Response Take 81 mg by mouth daily. Yes Provider, MD Gerson hydrOXYzine (ATARAX) 25 MG Tablet TAKE 1 TABLET BY MOUTH EVERY 6 HOURS NEEDED FOR ITCHING Patient not taking: Reported on 10/19/2023 04/25/21 aJylon Gudino MD levothyroxine (SYNTHROID) 25 MCG Tablet TAKE 1 TABLET BY MOUTH 4 TIMES A WEEK 07/20/23 Yes Jaylon Gudino MD pravastatin (PRAVACHOL) 40 MG Tablet TAKE 2 TABLETS BY MOUTH NIGHTLY 08/17/23 Yes Jaylon Gudino MD RABEprazole (ACIPHEX) 20 MG Tablet Delayed Response TAKE 2 TABLETS BY MOUTH ONCE DAILY TAKE 30-60 MINUTES BEFORE SUPPER 03/11/23 Yes Jaylon Gudino MD valsartan (DIOVAN) 160 MG Tablet Take 1 tablet by mouth once daily 09/29/23 Yes Jaylon Gudino MD There are no discontinued medications. I have reviewed the home medication list with the patient and have reconciled discrepancies. The list is accurate to the best of my knowledge. Smoking Status: Social History Tobacco Use Smoking status: Former Current packs/day: 1.00 Average packs/day: 1 pack/day for 10.0 years (10.0 ttl pk-yrs) Types: Cigarettes Passive exposure: Past Smokeless tobacco: Never Vaping Use Vaping status: Never Used Substance Use Topics Alcohol use: No Alcohol/week: 0.0 oz Drug use: No Smoking Cessation Counseling Given: no Health Care Maintenance: Health Maintenance Due Topic Date Due Hepatitis C Virus (HCV) Screening Never done Respiratory Syncytial Virus (RSV) Immunization (Adult - or age 60+ years) (1 - 1-dose 60+ series) Never done SARS-COV-2 Immunization ( season) 2023 Zoster Immunization (3 of 3) 08/17/2023 Orders Pended: no The following BPA's have been addressed with the patient today: BMI and Advanced Care Planning * Waldemar May - 10/19/2023 9:45 AM CDT Bacilio screened for Social Determinants of Health and no needs identified. * Jaylon Gudino MD - 10/19/2023 9:45 AM CDT PROGRESS NOTE [facility] - INTERNAL MEDICINE [address] [place] [address] PHONE: [phone] FAX: [phone] 10/19/2023 NAME: Bacilio Ramirez, : 1945, Assessment ASSESSMENT & PLAN: Return in about 6 months (around 04/20/2024) for htn. Diagnoses and all orders for this visit: Essential hypertension, benign Comments: Controlled. Continue current medication. Orders: - CMP (COMPREHENSIVE METABOLIC PANEL); Future - MAGNESIUM (MG); Future - CMP (COMPREHENSIVE METABOLIC PANEL) - MAGNESIUM (MG) Other hyperlipidemia Comments: Continue pravastatin and low-cholesterol diet. Orders: - CMP (COMPREHENSIVE METABOLIC PANEL); Future - LIPID PANEL; Future - CMP (COMPREHENSIVE METABOLIC PANEL) - LIPID PANEL Other specified hypothyroidism Comments: Continue levothyroxine. Orders: - THYROXINE (T4) FREE; Future - THYROID STIMULATING HORMONE (TSH); Future - THYROXINE (T4) FREE - THYROID STIMULATING HORMONE (TSH) Chronic fatigue Comments: Check labs. Orders: - COMPLETE BLOOD COUNT (CBC) WITH DIFF; Future - COMPLETE BLOOD COUNT (CBC) WITH DIFF Screening for prostate cancer - PSA SCREEN; Future - PSA SCREEN Hyperglycemia Comments: Continue low carb diet. Check HbA1c. Orders: - HEMOGLOBIN A1C W/ ESTIMATED GLUCOSE; Future - HEMOGLOBIN A1C W/ ESTIMATED GLUCOSE Follow-up in 6 months, sooner if needed. Chief Complaint Patient presents with Hypertension Constant fatigue, went to urgent care a month ago was given antibiotics for a virus and still has lung irritation from it Hypertension Patient is here for follow-up for hypertension other medical problems. Had viral infection leading to severe bronchitis type symptoms. Now cough has resolved. But has been feeling tired for past few weeks. No nausea vomiting. Tolerating current medications well. ROS Review of systems was negative, except as documented in HPI PHYSICAL EXAM VITALS: Wt Readings from Last 3 Encounters: 10/19/23 174 lb 6.4 oz (79.1 kg) 04/20/23 175 lb (79.4 kg) 09/29/22 175 lb (79.4 kg) Temp Readings from Last 3 Encounters: 10/19/23 97.6 ??F (36.4 ??C) (Temporal) 04/20/23 97 ??F (36.1 ??C) (Temporal) 09/29/22 97.5 ??F (36.4 ??C) (Temporal) BP Readings from Last 3 Encounters: 10/19/23 132/58 04/20/23 110/58 09/29/22 122/58 Pulse Readings from Last 3 Encounters: 10/19/23 53 04/20/23 62 09/29/22 60 Physical Exam Vitals and nursing note reviewed. Constitutional: Appearance: Normal appearance. He is normal weight. HENT: Head: Normocephalic. Right Ear: Tympanic membrane, ear canal and external ear normal. Left Ear: Tympanic membrane, ear canal and external ear normal. Eyes: Extraocular Movements: Extraocular movements intact. Conjunctiva/sclera: Conjunctivae normal. Pupils: Pupils are equal, round, and reactive to light. Cardiovascular: Rate and Rhythm: Normal rate and regular rhythm. Pulses: Normal pulses. Heart sounds: Normal heart sounds. Pulmonary: Effort: Pulmonary effort is normal. Breath sounds: Normal breath sounds. Abdominal: General: Abdomen is flat. Bowel sounds are normal. Palpations: Abdomen is soft. Musculoskeletal: General: Normal range of motion. Cervical back: Normal range of motion and neck supple. Skin: General: Skin is warm and dry. Neurological: General: No focal deficit present. Mental Status: He is alert and oriented to person, place, and time. Psychiatric: Mood and Affect: Mood normal. Past medical, surgical, social and family history has been reviewed and updated as necessary. Medications and allergies has been reviewed and updated. Allergies Allergen Reactions Sulfa Antibiotics Rash Avelox [Moxifloxacin Hcl In Nacl] Unknown Penicillins Hives Simvastatin Other (see Comments) MUSCLE PAIN Current Outpatient Medications: amLODIPine (NORVASC) 5 MG Tablet aspirin EC 81 MG Tablet Delayed Response levothyroxine (SYNTHROID) 25 MCG Tablet pravastatin (PRAVACHOL) 40 MG Tablet RABEprazole (ACIPHEX) 20 MG Tablet Delayed Response valsartan (DIOVAN) 160 MG Tablet I educated Bacilio regarding diagnoses and plan of care. He verbalizes understanding and will call the office if situation changes. Voice recognition software was utilized in this dictation. Despite proof reading, typographical errors and/or content errors may have occurred. By: Jaylon Gudino MD 10/19/2023 12:09 PM CDT documented in this encounter Plan of Treatment Upcoming Encounters Date Type Department Care Team (Late st Contact Info) Description 04/25/2024 9:30 AM COMMUNICATION CLERK Office Visit [facility] Medical Group - Internal Medicine - [place] [address] [place] [address] Jaylon Gudino MD [address] [place] [address] documented as of this encounter Procedures Procedure Name Priority Date/Time Associated Diagnosis Comments HEMOGLOBIN A1C W/ ESTIMATED GLUCOSE Routine 10/19/2023 10:15 AM CDT Hyperglycemia CBC WITH AUTO DIFFERENTIAL Routine 10/19/2023 10:15 AM CDT Chronic fatigue THYROXINE (T4) FREE Routine 10/19/2023 1 0:15 AM CDT Other specified hypothyroidism THYROID STIMULATING HORMONE (TSH) Routine 10/19/2023 10:15 AM CDT Other specified hypothyroidism PSA SCREEN Routine 10/19/2023 10:15 AM CDT Screening for prostate cancer MAGNESIUM (MG) Routine 10/19/2023 10:15 AM CDT Essential hypertension, benign LIPID PANEL Routine 10/19/2023 10:15 AM CDT Other hyperlipidemia CMP (COMPREHENSIVE METABOLIC PANEL) Routine 10/19/2023 10:15 AM CDT Essential hypertension, benign Other hyperlipidemia COMPLETE BLOOD COUNT (CBC) WITH DIFF Routine 10/19/2023 10:15 AM CDT Chronic fatigue documented in this encounter Results * (ABNORMAL) CBC WITH AUTO DIFFERENTIAL (10/19/2023 10:15 AM CDT) WBC 6.30 4.00 - 12.00 10(3)/mcL 10/19/2023 4:08 PM CDT [facility] RBC 4.08(L) 4.40 - 5.80 10(6)/mcL 10/19/2023 4:08 PM CDT [facility] HEMOGLOBIN (HGB) 12.3(L) 13.0 - 16.5 g/dL 10/19/2023 4:08 PM CDT [facility] HEMATOCRIT (HCT) 37.1(L) 38.0 - 50.0 % 10/19/2023 4:08 PM CDT [facility] MCV 90.9 82.0 - 96.0 fL 10/19/2023 4:08 PM CDT [facility] MCH 30.1 26.0 - 32.0 pg 10/19/2023 4:08 PM CDT [facility] MCHC 33.2 31.0 - 36.0 g/dL 10/19/2023 4:08 PM CDT [facility] PLATELET COUNT 218 140 - 440 10(3)/mcL 10/19/2023 4:08 PM CDT [facility] RDW 12.9 11.8 - 15.5 % 10/19/2023 4:08 PM CDT [facility] MPV 10.9 8.0 - 12.6 fL 10/19/2023 4:08 PM CDT [facility] NEUTROPHILS 67.0 40.0 - 68.0 % 10/19/2023 4:08 PM CDT [facility] LYMPHOCYTES 19.8 19.0 - 49.0 % 10/19/2023 4:08 PM CDT [facility] MONOCYTES 10.8 3.0 - 13.0 % 10/19/2023 4:08 PM CDT [facility] EOSINOPHILS 1.9 0.0 - 8.0 % 10/19/2023 4:08 PM CDT [facility] BASOPHILS 0.5 0.0 - 1.0 % 10/19/2023 4:08 PM CDT [facility] ABSOLUTE NEUTROPHILS 4.22 1.40 - 5.30 10(3)/[facility] 10/19/2023 4:08 PM CDT [facility] ABSOLUTE LYMPHOCYTES 1.25 0.90 - 3.30 10(3)/[facility] 10/19/2023 4:08 PM CDT [facility] ABSOLUTE MONOCYTES 0.68 0.10 - 0.90 10(3)/[facility] 10/19/2023 4:08 PM CDT [facility] ABSOLUTE EOSINOPHIL 0.12 0.00 - 0.50 10(3)/[facility] 10/19/2023 4:08 PM CDT [facility] ABSOLUTE BASOPHILS 0.03 0.00 - 0.10 10(3)/[facility] 10/19/2023 4:08 PM CDT [facility] NRBC PER 100 WBC 0 10/19/19 4:08 PM CDT [facility] Blood Venipuncture / Unknown 10/19/2023 10:15 AM CDT 10/19/2023 10:15 AM CDT us Jaylon Gudino MD HEMATOLOGY ORDERABLES Final Result [facility] [place] [address] * (ABNORMAL) HEMOGLOBIN A1C W/ ESTIMATED GLUCOSE (10/19/2023 10:15 AM CDT) HGB-A1C 6.2(H) 4.0 - 6.0 % 10/19/2023 3:37 PM CDT [facility] Est Average Glucose 131.2 mg/dL 10/19/2023 3:37 PM CDT [facility] Blood Venipuncture / Unknown 10/19/2023 10:15 AM CDT 10/19/2023 10:15 AM CDT Narrative [facility] - 10/19/2023 3:37 PM CDT HEMOGLOBIN A1C: DIABETIC PATIENTS: WELL-CONTROLLED: ?? 6.2 - 7.0 INTERMEDIATE WELL-CONTROLLED: ??7.0 - 9.0 POORLY-CONTROLLED: ??>9.0 us Jaylon Gudino MD CHEMISTRY ORDERABLES Final Result Performing Organization Address City/[facility] Co de Phone Number [facility] [place] [address] * MAGNESIUM (MG) (10/19/2023 10:15 AM CDT) MAGNESIUM 2.2 1.6 - 2.6 mg/dL 10/19/2023 3:49 PM CDT [facility] Blood Venipuncture / Unknown 10/19/2023 10:15 AM CDT 10/19/2023 10:15 AM CDT Jaylon Gudino MD CHEMISTRY ORDERABLES Final Result Performing Organization Address [facility] Co de Phone Number [facility] [place] [address] * PSA SCREEN (10/19/2023 10:15 AM CDT) PSA SCREEN, TOTAL 1.00 <4.00 ng/mL 10/19/2023 4:00 PM CDT [facility] Blood Venipuncture / Unknown 10/19/2023 10:15 AM CDT 10/19/2023 10:15 AM CDT Narrative [facility] - 10/19/2023 4:00 PM CDT The ALINITY Total PSA assay is a Chemiluminescent Microparticle Immunoassay (CMIA) for the quantitative determination of total PSA (both free PSA and PSA complexed to [id number]) in human serum. Total PSA values obtained with different assay methods, including Gillette PSA assays, cannot be used interchangeably. us Jaylon Gudino MD CHEMISTRY ORDERABLES Final Result Performing Organization Address City/[facility]/ZIP Co de Phone Number [facility] [place] [address] * THYROID STIMULATING HORMONE (TSH) (10/19/2023 10:15 AM CDT) Pathologist [facility] TSH 3.805 0.300 - 5.000 mIU/L 10/19/2023 4:03 PM CDT [facility] Blood Venipuncture / Unknown 10/19/2023 10:15 AM CDT 10/19/2023 10:15 AM CDT Jaylon Gudino MD CHEMISTRY ORDERABLES Final Result Performing Organization Address [facility] Co de Phone Number [facility] [place] [address] * THYROXINE (T4) FREE (10/19/2023 10:15 AM CDT) [facility] T4 FREE 0.8 0.7 - 1.9 ng/dL 10/19/2023 4:03 PM CDT [facility] Blood Venipuncture / Unknown 10/19/2023 10:15 AM CDT 10/19/2023 10:15 AM CDT Jaylon Gudino MD CHEMISTRY ORDERABLES Final Result Performing Organization Address City/[facility]/ZIP Co de Phone Number [facility] [address] [place] [address] * (ABNORMAL) LIPID PANEL (10/19/2023 10:15 AM CDT) Pathologist [facility] CHOLESTEROL 175 <200 mg/dL 10/19/2023 3:49 PM CDT [facility] TRIGLYCERIDES 161(H) <150 mg/dL 10/19/2023 3:49 PM CDT [facility] HDL CHOLESTEROL 64 >40 mg/dL 3:49 PM CDT [facility] LDL 79 <130 mg/dL 10/19/2023 3:49 PM CDT [facility] VLDL 32 10 - 50 mg/dL 10/19/2023 3:49 PM CDT [facility] CHOL/HDL RATIO 2.7 0.0 - 4.4 10/19/2023 3:49 PM CDT [facility] NON-HDL CHOLESTEROL 111 <130 mg/dL 10/19/2023 3:49 PM CDT [facility] Blood Venipuncture / Unknown 10/19/2023 10:15 AM CDT 10/19/2023 10:15 AM CDT us Jaylon Gudino MD CHEMISTRY ORDERABLES Final Result [facility] [address] [place] [address] * (ABNORMAL) CMP (COMPREHENSIVE METABOLIC PANEL) (10/19/2023 10:15 AM CDT) SODIUM 142 136 - 145 mmol/L 10/19/2023 3:49 PM CDT [facility] POTASSIUM 4.3 3.5 - 5.1 mmol/L 10/19/2023 3:49 PM CDT [facility] CHLORIDE 109(H) 98 - 107 mmol/L 10/19/2023 3:49 PM CDT [facility] CO2, VENOUS 25 22 - 30 mmol/L 10/19/2023 3:49 PM CDT [facility] ANION GAP 12.3 <18.0 mmol/L 10/19/2023 3:49 PM CDT [facility] GLUCOSE 112(H) 70 - 99 mg/dL 10/19/2023 3:49 PM CDT [facility] BUN 21 8 - 26 mg/dL 10/19/2023 3:49 PM CDT [facility] CREATININE, BLOOD 1.29 0.70 - 1.30 mg/dL 10/19/2023 3:49 PM CDT [facility] BUN/CREATININE RATIO 16 12 - 20 ratio 10/19/2023 3:49 PM CDT [facility] TOTAL PROTEIN 7.1 6.3 - 8.2 g/dL 10/19/2023 3:49 PM CDT [facility] ALBUMIN 4.6 3.5 - 5.0 g/dL 10/19/2023 3:49 PM CDT [facility] A/G RATIO 1.8 1.0 - 2.2 10/19/2023 3:49 PM CDT [facility] CALCIUM 10.0 8.7 - 10.5 mg/dL 10/19/2023 3:49 PM CDT [facility] T BILI 0.6 0.2 - 1.2 mg/dL 10/19/2023 3:49 PM CDT [facility] SGOT (AST) 44(H) 5 - 34 U/L 10/19/2023 3:49 PM CDT [facility] SGPT (ALT) 34 0 - 55 U/L 10/19/2023 3:49 PM CDT [facility] ALKALINE PHOSPHATASE 52 40 - 150 U/L 10/19/2023 3:49 PM CDT [facility] IS THE PATIENT REQUIRED TO BE FASTING? No 10/19/2023 3:49 PM CDT [facility] GFR, ESTIMATED 56(L) >=60 10/19/2023 3:49 PM CDT [facility] Comment: Creatinine Clearance is the preferred criteria for selecting drug dose adjustments in renally impaired patients. ??The GFR is provided as additional pertinent clinical information. GFR is reported in mL/min/1.73 sq m. Calculation based on the Chronic Kidney Disease Epidemiology Collaboration (CKD- EPI) equation refit without adjustment for race. GFR, EST. >60 >=60 024 3:49 PM CDT [facility] GFR, EST. NONAFRICAN 54(L) >=60 10/19/2023 3:49 PM CDT [facility] Blood Venipuncture / Unknown 10/19/2023 10:15 AM CDT 10/19/2023 10:15 AM CDT Jaylon Gudino MD CHEMISTRY ORDERABLES Final Result [facility] [address] [place] [address] documented in this encounter Visit Diagnoses Diagnosis Essential hypertension, benign- Primary Other hyperlipidemia Other specified hypothyroidism Chronic fatigue Other malaise and fatigue Screening for prostate cancer Special screening for malignant neoplasm of prostate Hyperglycemia Other abnormal glucose documented in this encounter Additional Health Concerns Assessment Noted Time PHQ-9 Depression Total Score: 0 04/20/19 24 9:50 AM COMMUNICATION CLERK documented as of this encounter Care Teams Youth Liaison Officer Relationship Specialty Start Date End Date Jaylon Gudino MD [address] [place] [address] PCP - General Internal Medicine 01/16/16 documented as of this encounter
--- OUTSIDE RECORDS SUMMARY | 2024-03-03 11:26 | XMS_ITS | Encounter Summary ---
Author Organization Private Practice Care Team Providers Care Slasher Runner Name Role Phone Jaylon Gudino MD Primary Care Provider [phone] Encounter Details Date Type Department Care Team (Latest Contact Info) Description 01/18/2024 Travel Social History Tobacco Use Types Packs/Day Years Used Date Smoking Tobacco: Former Cigarettes 1 10 Passive Smoke Exposure: Past Smokeless Tobacco: Never Alcohol Use Standard Drinks/Week Comments No 0 (1 standard drink = 0.6 oz pur e alcohol) [facility] Utilities Answer Date Recorded In the past [...] and Family Not on file 04/20/2023 Attends [employer] Not on file 04/20 Active Member [...] Total Score - Questions 1-9 0 04/02 [facility] Occupat ional Health - Occupational Stress [...] st Contact Info) Description 04/25/2024 9:30 AM EDISCOVERY PROJECT MANAGER Office Visit [facility] - Internal Medicine - [place] [address] [place] [address] Jaylon Gudino MD [address] [place] [address] documented as of this encounter Visit Diagnoses Not on filedocumented in this encounter Additional Health Concerns Assessment Noted Time PHQ-9 Depression Total Score: 0 04/20/19 24 9:50 AM EDISCOVERY PROJECT MANAGER documented as of this encounter Care Teams Slasher Runner Relationship Specialty Start Date End Date Jaylon Gudino MD [address] [place] [address] PCP - General Internal Medicine 01/16/16 documented as of this encounter
--- OUTSIDE RECORDS SUMMARY | 2024-03-03 11:27 | XMS_ITS | Encounter Summary ---
Author Organization [facility] Address [address] [place] [address] Phone Care Team Providers Care Laser Print Operator Name Role Phone Jaylon Gudino MD Primary Care Provider [phone] Reason for Visit * Reason Comments Medication Refill Encounter Details Date Type Department Care Team (Late st Contact Info) Description 07/18/2023 Refill [facility] Group - Internal Medicine - [place] [address] [place] [address] Jaylon Gudino MD [address] [place] [address] Medication Refill Social History Tobacco Use Types Packs/Day Years Used Date Smoking Tobacco: Former Cigarettes 1 10 Passive Smoke Exposure: Past Smokeless Tobacco: Never Alcohol Use Standard Drinks/Week Comments No 0 (1 standard drink = 0.6 oz pur e alcohol) [facility] Utilities Answer Date Recorded In the past 12 months has [employer] electric, gas, oil, or water company threatened [...] Total Score - Questions 1-9 0 04/02 [facility] [place] [facility] Occupat ional Health - Occupational Stress [...] Telephone Encounter - Luzma Liu RN - 07/20/2023 8:17 AM CDT Medication(s) refilled and signed per [facility] Chronic Medication Refill Standing Order for Pediatricand Adult Patients. Requested Prescriptions Pending Prescriptions Disp Refills levothyroxine (SYNTHROID) 25 MCG Tablet [Pharmacy Med Name: Levothyroxine Sodium 25 MCG Oral Tablet] 52 Tablet 0 Sig: TAKE 1 TABLET BY MOUTH 4 TIMES A WEEK Thyroid Hormones Protocol Passed - 07/18/2023 9:32 AM Passed - Visit with relevant provider in past 12 months or upcoming 90 days Recent Visits Date Type Provider Dept 04/20/23 Office Visit Jaylon Gudino MD [facility] [place] 09/29/22 Office Visit Jaylon Gudino MD [facility] [place] Showing recent visits within past 365 days and meeting all other requirements Future Appointments No visits were found meeting these conditions. Showing future appointments within next 90 days and meeting all other requirements Passed - Normal TSH in past 12 months TSH Date Value Ref Range Status 09/29/2022 4.520 0.300 - 5.000 mIU/L Final documented in this encounter Plan of Treatment Upcoming Encounters Date Type Department Care Team (Late st Contact Info) Description 04/25/2024 9:30 AM PERSONAL DEVELOPMENT EDUCATOR Office Visit [facility] - Internal Medicine - [place] [address] [place] [id number] Jaylon Gudino MD [address] [place] [address] documented as of this encounter Visit Diagnoses Diagnosis Elevated TSH Other abnormal blood chemistry documented in this encounter Additional Health Concerns Assessment Noted Time PHQ-9 Depression Total Score: 0 04/20/19 9:50 AM PERSONAL DEVELOPMENT EDUCATOR documented as of this encounter Care Teams Laser Print Operator Relationship Specialty Start Date End Date Jaylon Gudino MD [address] [place] [address] PCP - General Internal Medicine 01/16/16 documented as of this encounter
--- OUTSIDE RECORDS SUMMARY | 2024-03-03 11:27 | XMS_ITS | Encounter Summary ---
Author Organization [facility] Address [address] [place] [address] Phone Care Team Providers Care Restaurant Assistant Name Role Phone Jaylon Gudino MD Primary Care Provider [phone]- [phone] Reason for Visit * Reason Comments Medication Refill Encounter Details Date Type Department Care Team (Late st Contact Info) Description 07/03/2023 Refill [facility] - Internal Medicine - [place] [address] [place] [phone] Jaylon Gudino MD [address] [place] [address] Medication Refill Social History Tobacco Use Types Packs/Day Years Used Date Smoking Tobacco: Former Cigarettes 1 10 Passive Smoke Exposure: Past Smokeless Tobacco: Never Alcohol Use Standard Drinks/Week Comments No 0 (1 standard drink = 0.6 oz pur e alcohol) [facility] Utilities Answer Date Recorded In the past 12 months has [employer] electric, gas, oil, or water company threatened [...] and Family Not on file 04/20/2023 Attends Jain Services Not on file 04/20 Active Member [...] Total Score - Questions 1-9 0 04/02 [facility] [place] of Occupat ional Health - Occupational Stress [...] Telephone Encounter - Luzma Liu RN - 07/03/2023 8:06 AM CDT Medication(s) refilled and signed [facility] Medication Refill Standing Order for Pediatricand Adult Patients. Requested Prescriptions Pending Prescriptions Disp Refills valsartan (DIOVAN) 160 MG Tablet [Pharmacy Med Name: Valsartan 160 MG Oral Tablet] 90 Tablet 0 Sig: Take 1 tablet by mouth once daily ARB Protocol Passed - 07/03/2023 6:53 AM Passed - Serum potassium on record in past 12 months POTASSIUM Date Value Ref Range Status 09/29/2022 4.5 3.5 - 5.1 mmol/L Final Passed - BP on record in the past year Clinician-entered: BP Readings from Last 3 Encounters: 04/20/23 110/58 09/29/22 122/58 03/31/22 136/60 Patient-entered: No data recorded Passed - Visit with relevant provider in past year or upcoming 90 days Recent Visits Date Type Provider Dept 04/20/23 Office Visit Jaylon Gudino MD [facility] [place] 09/29/22 Office Visit Jaylon Gudino MD [facility] [place] Showing recent visits within past 365 days and meeting all other requirements Future Appointments No visits were found meeting these conditions. Showing future appointments within next 90 days and meeting all other requirements Passed - GFR on record in past 12 months GFR, EST. NONAFRICAN Date Value Ref Range Status 09/29/2022 58 (L) >=60 Final documented in this encounter Plan of Treatment Upcoming Encounters Date Type Department Care Team (Late st Contact Info) Description 04/25/2024 9:30 AM SPECIAL EDUCATION TEACHERS [facility] - [place] [address] [place] [phone] Jaylon Gudino MD [address] [place] [address] documented as of this encounter Visit Diagnoses Not on filedocumented in this encounter Additional Health Concerns Assessment Noted Time PHQ-9 Depression Total Score: 0 04/20/19 24 9:50 AM SPECIAL EDUCATION TEACHERS documented as of this encounter Care Teams Restaurant Assistant Relationship Specialty Start Date End Date Jaylon Gudino MD [address] [place] [address] PCP - General Internal Medicine 01/16/16 documented as of this encounter
--- OUTSIDE RECORDS SUMMARY | 2024-03-03 11:27 | XMS_ITS | Encounter Summary ---
Author Organization [facility] Address [address] [place] [address] Phone Care Team Providers Care Structural Steel Worker Helper Name Role Phone Jaylon Gudino MD Primary Care Provider Reason for Visit * Reason Comments Medication Refill Encounter Details Date Type Department Care Team (Late st Contact Info) Description 05/21/2023 Refill [facility] Medical Group - Internal Medicine - [place] [address] [place] [phone] Claudia Sevilla, [facility] [address] [place] [address] Medication Refill Social History Tobacco Use Types Packs/Day Years Used Date Smoking Tobacco: Former Cigarettes 1 10 Passive Smoke Exposure: Past Smokeless Tobacco: Never Alcohol Use Standard Drinks/Week Comments No 0 (1 standard drink = 0.6 oz pur e alcohol) [facility] Utilities Answer Date Recorded In the past 12 months has [employer] electric, gas, oil, or water company threatened [...] and Family Not on file 04/20/2023 Attends Anglican Services Not on file 04/20 Active Member [...] Total Score - Questions 1-9 0 04/02 [facility] of Occupat ional Health - Occupational [...] encounter Miscellaneous Notes * Telephone Encounter - Sabina Koehler RN - 05/22/2023 9:26 AM CDT Medication warning Per nursing clinical judgement, provider to review and approve the medication(s) order(s) if appropriate. Requested Prescriptions Pending Prescriptions Disp Refills pravastatin (PRAVACHOL) 40 MG Tablet [Pharmacy Med Name: Pravastatin Sodium 40 MG Oral Tablet] 180 Tablet 0 Sig: TAKE 2 TABLETS BY MOUTH NIGHTLY Hmg CoA Reductase Inhibitors Protocol Passed - 05/21/2023 7:10 PM Passed - Visit with relevant provider in past 12 months or upcoming 90 days Recent Visits Date Type Provider Dept 04/20/23 Office Visit Jaylon Gudino MD [facility] [place] 09/29/22 Office Visit Jaylon Gudino MD [facility] Showing recent visits within past 365 days and meeting all other requirements Future Appointments No visits were found meeting these conditions. Showing future appointments within next 90 days and meeting all other requirements Passed - Lipid panel in past 12 months LDL Date Value Ref Range Status 09/29/2022 69 5 - 130 mg/dL Final HDL CHOLESTEROL Date Value Ref Range Status 09/29/2022 60.9 >40 mg/dL Final CHOLESTEROL Date Value Ref Range Status 09/29/2022 176 <200 mg/dL Final TRIGLYCERIDES Date Value Ref Range Status 09/29/2022 230 (H) <150 mg/dL Final VLDL Date Value Ref Range Status 09/29/2022 46 5 - 55 mg/dL Final CHOL/HDL RATIO Date Value Ref Range Status 09/29/2022 2.9 0.0 - 4.4 Final NON-HDL CHOLESTEROL Date Value Ref Range Status 09/29/2022 115.1 <130 mg/dL Final Passed - CMP in past 12 months SODIUM Date Value Ref Range Status 09/29/2022 138 136 - 144 mmol/L Final POTASSIUM Date Value Ref Range Status 09/29/2022 4.5 3.5 - 5.1 mmol/L Final CHLORIDE Date Value Ref Range Status 09/29/2022 104 100 - 110 mmol/L Final CO2, VENOUS Date Value Ref Range Status 09/29/2022 21 (L) 22 - 32 mmol/L Final ANION GAP Date Value Ref Range Status 09/29/2022 17.5 8.0 - 20.0 mmol/L Final GLUCOSE Date Value Ref Range Status 09/29/2022 97 70 - 99 mg/dL Final BUN Date Value Ref Range Status 09/29/2022 24 (H) 8 - 23 mg/dL Final CREATININE, BLOOD Date Value Ref Range Status 09/29/2022 1.21 0.80 - 1.30 mg/dL Final BUN/CREATININE RATIO Date Value Ref Range Status 09/29/2022 20 12 - 20 ratio Final TOTAL PROTEIN Date Value Ref Range Status 09/29/2022 7.0 6.0 - 8.3 g/dL Final ALBUMIN Date Value Ref Range Status 09/29/2022 4.6 3.5 - 5.2 g/dL Final Comment: The colormetric methods used for the determination of Albumin may lead to falsely elevated test results in patients suffering from renal failure or insufficiency due to interference with other proteins. A/G RATIO Date Value Ref Range Status 09/29/2022 1.9 1.0 - 2.0 Final CALCIUM Date Value Ref Range Status 09/29/2022 10.1 8.7 - 10.5 mg/dL Final T BILI Date Value Ref Range Status 09/29/2022 0.3 0.2 - 1.2 mg/dL Final SGOT (AST) Date Value Ref Range Status 09/29/2022 22 <=40 U/L Final SGPT (ALT) Date Value Ref Range Status 09/29/2022 25 <=41 U/L Final ALKALINE PHOSPHATASE Date Value Ref Range Status 09/29/2022 64 40 - 130 U/L Final GFR, EST. NONAFRICAN Date Value Ref Range Status 09/29/2022 58 (L) >=60 Final GFR, EST. Date Value Ref Range Status 09/29/2022 >60 >=60 Final GFR, ESTIMATED Date Value Ref Range Status 09/29/2022 >60 >=60 Final Comment: Creatinine Clearance is the preferred criteria for selecting drug dose adjustments in renally impaired patients. The GFR is provided as additional pertinent clinical information. GFR is reported in mL/min/1.73 sq m. Calculation based on the Chronic Kidney Disease Epidemiology Collaboration (CKD- EPI) equation refitwithout adjustment for race. IS THE PATIENT REQUIRED TO BE FASTING? Date Value Ref Range Status 09/29/2022 No Final documented in this encounter Plan of Treatment Upcoming Encounters Date Type Department Care Team (Late st Contact Info) Description 04/25/2024 9:30 AM LOUVER DOOR ASSEMBLER Office Visit [facility] - Internal Medicine [place] [address] [place] [address] Jaylon Gudino MD [address] [place] [address] documented as of this encounter Visit Diagnoses Not on filedocumented in this encounter Additional Health Concerns Assessment Noted Time PHQ-9 Depression Total Score: 0 04/20/19 24 9:50 AM LOUVER DOOR ASSEMBLER documented as of this encounter Care Teams Structural Steel Worker Helper Relationship Specialty Start Date End Date Jaylon Gudino MD [address] [place] [address] PCP - General Internal Medicine 01/16/16 documented as of this encounter
--- OUTSIDE RECORDS SUMMARY | 2024-03-03 11:27 | XMS_ITS | Encounter Summary ---
Author Organization [facility] Address [address] [place] [address] Phone Care Team Providers Care Auto Specialty Services Manager Name Role Phone Jaylon Gudino MD Primary Care Provider Reason for Visit * Reason Comments Medication Refill Encounter Details Date Type Department Care Team (Late st Contact Info) Description 08/16/2023 Refill [facility] - Internal Medicine - [place] [address] [place] [phone] Claudia Sevilla, [facility] [address] [place] [address] Medication Refill Social History Tobacco Use Types Packs/Day Years Used Date Smoking Tobacco: Former Cigarettes 1 10 Passive Smoke Exposure: Past Smokeless Tobacco: Never Alcohol Use Standard Drinks/Week Comments No 0 (1 standard drink = 0.6 oz pur e alcohol) [facility] Utilities Answer Date Recorded In the past 12 months has [employer] electric, gas, oil, or water company threatened [...] and Family Not on file 04/20/2023 Attends Shinto Services Not on file 04/20 Active Member [...] Total Score - Questions 1-9 0 04/02 [facility] of Occupat ional Health - [...] Telephone Encounter - Luzma Liu RN - 08/17/2023 9:37 AM CDT Per nursing clinical judgement, provider to review and approve the medication(s) order(s) if appropriate. Requested Prescriptions Pending Prescriptions Disp Refills pravastatin (PRAVACHOL) 40 MG Tablet [Pharmacy Med Name: Pravastatin Sodium 40 MG Oral Tablet] 180 Tablet 0 Sig: TAKE 2 TABLETS BY MOUTH NIGHTLY Hmg CoA Reductase Inhibitors Protocol Passed - 08/16/2023 12:33 PM Passed - Visit with relevant provider in past 12 months or upcoming 90 days Recent Visits Date Type Provider Dept 04/20/23 Office Visit Jaylon Gudino MD [facility] [place] 09/29/22 Office Visit Jaylon Gudino MD [facility] [place] Showing recent visits within past 365 days and meeting all other requirements Future Appointments Date Type Provider Dept 10/19/23 Appointment Jaylon Gudino MD [facility] [place] Showing future appointments within next 90 days [...] st Contact Info) Description 04/25/2024 9:30 AM OVEN PRESS TENDER [facility] [address] [place] [address] Jaylon Gudino MD [address] [place] [address] documented as of this encounter Visit Diagnoses Not on filedocumented in this encounter Additional Health Concerns Assessment Noted Time PHQ-9 Depression Total Score: 0 04/20/19 24 9:50 AM OVEN PRESS TENDER documented as of this encounter Care Teams Auto Specialty Services Manager Relationship Specialty Start Date End Date Jaylon Gudino MD [address] [place] [address] PCP - General Internal Medicine 01/16/16 documented as of this encounter
--- OUTSIDE RECORDS SUMMARY | 2024-03-03 11:27 | XMS_ITS | Encounter Summary ---
Author Organization [employer] Care Team Providers Care Psychologist Military Personnel Name Role Phone Jaylon Gudino MD Primary Care Provider [phone]- [phone] Encounter Details Date Type Department Care Team (Latest Contact Info) Description 04/20/2023 Travel Social History Tobacco Use Types Packs/Day Years Used Date Smoking Tobacco: Former Cigarettes 1 10 Passive Smoke Exposure: Past Smokeless Tobacco: Never Alcohol Use Standard Drinks/Week Comments No 0 (1 standard drink = 0.6 oz pur e alcohol) [facility] Utilities Answer Date Recorded In the past [...] and Family Not on file 04/20/2023 Attends Holiness Services Not on file 04/20 Active Member [...] Total Score - Questions 1-9 0 04/02 [facility] of Occupat ional Health - Occupational Stress [...] on file documented as of this encounter Functional Status * Within the last year, have you been afraid of your partner or ex-partner? Answer Date of Assessment Author Patient declined 04/20/2023 9:28 AM Abby Warner * Q1: How often do you have a drink containing alcohol? Answer Date of Assessment Author Never 04/20/2023 9:28 AM ERRAND RUNNER Pauline, [facility] [place] * Question Answer Date of Assessment Author Little interest or pleasure in doing things Not at all 04/20/2023 9:50 AM India Hollis CMA Feeling down, depressed, or hopeless Not at all 04/20/2023 9:50 AM India Hollis CMA * Over the past 2 weeks, how often have you been bothered by any of the following problems? Question Answer Date of Assessment Author Patient Health Questionnaire -2 Score 0 04/20/2023 9:50 AM India Hollis CMA documented as of this encounter Plan of Treatment Upcoming Encounters Date Type Department Care Team (Late st Contact Info) Description 04/25/2024 9:30 AM ERRAND RUNNER [facility] - [facility] Medicine [place] [address] [place] [address] Jaylon Gudino MD [address] [place] [address] documented as of this encounter Visit Diagnoses Not on filedocumented in this encounter Additional Health Concerns Assessment Noted Time PHQ-9 Depression Total Score: 0 04/20/19 24 9:50 AM ERRAND RUNNER documented as of this encounter Care Teams Psychologist Military Personnel Relationship Specialty Start Date End Date Jaylon Gudino MD [address] [place] [address] PCP - General Internal Medicine 01/16/16 documented as of this encounter
--- OUTSIDE RECORDS SUMMARY | 2024-03-03 11:27 | XMS_ITS | Encounter Summary ---
Author Organization [facility] Address [address] [place] [address] Phone Care Team Providers Care Bulk Loader Name Role Phone Jaylon Gudino MD Primary Care Provider Reason for Visit * Reason Onset Date Comments Care Management 07/20/2023 Encounter Details Date Type Department Care Team (Late st Contact Info) Description 07/20/2023 Patient Outreach [facility] [address] [place] [address] Romy Rivera [place] Care Management Social History Tobacco Use Types Packs/Day Years Used Date Smoking Tobacco: Former Cigarettes 1 10 Passive Smoke Exposure: Past Smokeless Tobacco: Never Alcohol Use Standard Drinks/Week Comments No 0 (1 standard drink = 0.6 oz pur e alcohol) [facility] Utilities Answer Date Recorded In the past 12 months has [employer], gas, oil, or water [employer] threatened to shut off services in your [...] Questions 1-9 0 04/02 [facility] [place] of Occupat ional Health - Occupational Stress [...] as of this encounter Progress Notes * Romy Rivera - 07/20/2023 10:58 AM CDT Outbound call placed to Bacilio aRmirez regarding enrollment to [facility] Management services with [facility]. Patient answered the phone, who states that patient would not be interested in Chronic Care Management Services with [facility]. Program marked declined and encounter closed. documented in this encounter Plan of Treatment Upcoming Encounters Date Type Department Care Team (Late st Contact Info) Description 04/25/2024 9:30 AM SECURITY SYSTEM SALES CONSULTANT Office Visit [facility] - Internal Medicine - [place] [address] [place] [address] Jaylon Gudino MD [address] [place] [address] documented as of this encounter Visit Diagnoses Not on filedocumented in this encounter Additional Health Concerns Assessment Noted Time PHQ-9 Depression Total Score: 0 04/20/19 9:50 AM SECURITY SYSTEM SALES CONSULTANT documented as of this encounter Care Teams Bulk Loader Relationship Specialty Start Date End Date Jaylon Gudino MD [address] [place] [address] PCP - General Internal Medicine 01/16/16 documented as of this encounter
--- OUTSIDE RECORDS SUMMARY | 2024-03-03 11:27 | XMS_ITS | Encounter Summary ---
Author Organization [facility] Address [address] [place] [address] Phone Care Team Providers Care Personnel Assistant Name Role Phone Jaylon Gudino MD Primary Care Provider [phone]- [phone] Reason for Visit * Reason Comments Medication Refill Encounter Details Date Type Department Care Team (Late st Contact Info) Description 09/29/2023 Refill [facility] Medical Group - Internal Medicine - [place] [address] [place] [phone] Jaylon Gudino MD [address] [facility] [place] [address] Medication Refill Social History Tobacco Use Types Packs/Day Years Used Date Smoking Tobacco: Former Cigarettes 1 10 Passive Smoke Exposure: Past Smokeless Tobacco: Never Alcohol Use Standard Drinks/Week Comments No 0 (1 standard drink = 0.6 oz pur e alcohol) [facility] Utilities Answer Date Recorded In the past 12 months has [employer] electric, gas, oil, or water company threatened [...] and Family Not on file 04/20/2023 Attends Confucianism Services Not on file 04/20 Active Member [...] Total Score - Questions 1-9 0 04/02 [facility] [place] of Occupat ional Health - Occupational Stress [...] Encounter - Luzma Liu RN - 09/29/2023 8:37 AM CDT Medication(s) [facility] Medication Refill Standing Order for Pediatricand Adult Patients. Requested Prescriptions Pending Prescriptions Disp Refills valsartan (DIOVAN) 160 MG Tablet [Pharmacy Med Name: Valsartan 160 MG Oral Tablet] 90 Tablet 0 Sig: Take 1 tablet by mouth once daily ARB Protocol Passed - 09/29/2023 6:54 AM Passed - Serum potassium on record [...] [place] 09/29/22 Office Visit Jaylon Gudino MD [facility] [place] Showing recent visits within past 365 days and meeting all other requirements Future Appointments Date Type Provider Dept 10/19/23 Appointment Jaylon Gudino MD [facility] [place] Showing future appointments within next 90 days and meeting all other requirements Passed - GFR on record in past 12 months GFR, EST. NONAFRICAN Date Value Ref Range Status 09/29/2022 58 (L) >=60 Final documented in this encounter Plan of Treatment Upcoming Encounters Date Type Department Care Team (Late st Contact Info) Description 04/25/2024 9:30 AM STAMP PRESS OPERATOR [facility] Visit [facility] - [place] [address] [place] [address] Jaylon Gudino MD [address] [place] [address] documented as of this encounter Visit Diagnoses Not on filedocumented in this encounter Additional Health Concerns Assessment Noted Time PHQ-9 Depression Total Score: 0 04/20/19 24 9:50 AM STAMP PRESS OPERATOR documented as of this encounter Care Teams Personnel Assistant Relationship Specialty Start Date End Date Jaylon Gudino MD [address] [place] [address] PCP - General Internal Medicine 01/16/16 documented as of this encounter
--- OUTSIDE RECORDS SUMMARY | 2024-03-03 11:27 | XMS_ITS | Encounter Summary ---
Author Organization [facility] Address [address] [place] [address] Phone Care Team Providers Care Sales Development Associate Name Role Phone Jaylon Gudino MD Primary Care Provider [phone] Reason for Visit * Reason Comments Medication Refill Encounter Details Date Type Department Care Team (Late st Contact Info) Description 07/06/2023 Refill [facility] Medical Group - Internal Medicine - [place] [address] [place] [phone] Jaylon Gudino MD [address] [facility] [place] [address] Medication Refill Social History Tobacco Use Types Packs/Day Years Used Date Smoking Tobacco: Former Cigarettes 1 10 Passive Smoke Exposure: Past Smokeless Tobacco: Never Alcohol Use Standard Drinks/Week Comments No 0 (1 standard drink = 0.6 oz pur e alcohol) [facility] Utilities Answer Date Recorded In the past 12 months has [email or web address] electric, gas, oil, or water company threatened [...] Total Score - Questions 1-9 0 04/02 [facility] [place] of Occupat ional Health - Occupational Stress [...] Miscellaneous Notes * Telephone Encounter - Luzma Lui RN - 07/06/2023 2:08 PM CDT Medication(s) refilled and signed [facility] Chronic Medication Refill Standing Order for Pediatricand Adult Patients. Requested Prescriptions Pending Prescriptions Disp Refills amLODIPine (NORVASC) 5 MG Tablet [Pharmacy Med Name: amLODIPine Besylate 5 MG Oral Tablet] 180 Tablet 0 Sig: Take 1 tablet by mouth twice daily Calcium-Channel Blockers Protocol Passed - 07/06/2023 2:02 PM Passed - BP on record in the past year Clinician-entered: BP Readings from Last 3 Encounters: 04/20/23 110/58 09/29/22 122/58 03/31/22 136/60 Patient-entered: No data recorded Passed - Visit with relevant provider in past 12 months or upcoming 90 days Recent Visits Date Type Provider Dept 04/20/23 Office Visit Jaylon Gudino MD [facility] [place] 09/29/22 Office Visit Jaylon Gudino MD [facility] [place] Showing recent visits within past 365 days and meeting all other requirements Future Appointments No visits were found meeting these conditions. Showing future appointments within next 90 days and meeting all other requirements documented in this encounter Plan of Treatment Upcoming Encounters Date Type Department Care Team (Late st Contact Info) Description 04/25/2024 9:30 AM PEDIATRIC DIETICIAN [facility] Visit [facility] - [place] [address] [place] [address] Jaylon Gudino MD [address] [place] [address] documented as of this encounter Visit Diagnoses Not on filedocumented in this encounter Additional Health Concerns Assessment Noted Time PHQ-9 Depression Total Score: 0 04/20/19 24 9:50 AM PEDIATRIC DIETICIAN documented as of this encounter Care Teams Sales Development Associate Relationship Specialty Start Date End Date Jaylon Gudino MD [address] [place] [address] PCP - General Internal Medicine 01/16/16 documented as of this encounter
--- OUTSIDE RECORDS SUMMARY | 2024-03-03 11:27 | XMS_ITS | Encounter Summary ---
Author Organization [facility] Address [address] [place] [address] Phone Care Team Providers Care Electric Blanket Packer Name Role Phone Jaylon Gudino MD Primary Care Provider Reason for Visit * Reason Comments Hypertension 6 mo f/u Nasal Congestion For 11 days Encounter Details Date Type Department Care Team (Late st Contact Info) Description 04/20/2023 9:45 AM TICKETING CLERK Office Visit [facility] - Internal Medicine - [place] [address] [place] [address] Jaylon Gudino MD [address] [place] [address] Essential hypertension, benign (Primary Dx); Infrarenal abdominal aortic aneurysm (AAA) without rupture (HCC); Other specified hypothyroidism; Other hyperlipidemia; GERD without esophagitis; Upper respiratory tract infection, unspecified type Discharge Disposition: Discharged to home or Selfcare Social History Tobacco Use Types Packs/Day Years Used Date Smoking Tobacco: Former Cigarettes 1 10 Passive Smoke Exposure: Past Smokeless Tobacco: Never Tobacco Cessation:Counseling Given: No Alcohol Use Standard Drinks/Week Comments No 0 (1 standard drink = 0.6 oz pur e alcohol) [facility] Utilities Answer Date Recorded In the past 12 months has Call [employer], gas, oil, or water company threatened to [...] and Family Not on file 04/20/2023 Attends [employer] Not on file 04/20 Active Member [...] Total Score - Questions 1-9 0 04/02 [facility] Occupat ional Health - Occupational Stress [...] Sign Reading Time Taken Comments Blood Pressure 110/58 04/20/2023 9:47 AM TICKETING CLERK Pulse 62 04/20/2023 9:47 AM TICKETING CLERK Temperature 36.1 ??C (97 ??F) 04/20/2023 9:47 AM TICKETING CLERK Respiratory Rate - - Oxygen Saturation 99% 04/20/2023 9:47 AM TICKETING CLERK Inhaled Oxygen Concentration - - Weight 79.4 kg (175 lb) 04/20/2023 9:47 AM TICKETING CLERK Height 177.8 cm (5' 10 ) 04/20/2023 9:47 AM TICKETING CLERK Body Mass Index 25.11 04/20/2023 9:47 AM TICKETING CLERK documented in this encounter Functional Status * Within the last year, have you been afraid of your partner or ex-partner? Answer Date of Assessment Author Patient declined 04/20/2023 9:28 AM Abby [facility] [place] [facility] * Q1: How often do you have a drink containing alcohol? Answer Date of Assessment Author Never 04/20/2023 9:28 AM John [facility] [place] [facility] * Question Answer Date of Assessment Author [...] Hollis CMA documented as of this encounter Patient Instructions * Patient Instructions* Jaylon Gudino MD - 04/20/2023 9:45 AM TICKETING CLERK RECOMMENDED DURING YOUR VISIT TODAY Zoster (Shingles) Vaccine RSV Vaccine ETING CLERK documented in this encounter Progress Notes * India Terrell CMA - 04/20/2023 9:45 AM CST Bacilio screened for Social Determinants of Health and no needs identified. ETING CLERK * India Terrell CMA - 04/20/2023 9:45 AM CST Bacilio Ramirez, 77 y.o., male is here for Hypertension (6 mo f/u) and Nasal Congestion (For 11 days) Medication Refills: Patient reports/denies need for medication refills. Orders Pended: no Requested Prescriptions No prescriptions requested or ordered in this encounter Home Medications Medication Sig Start Date End Date Taking? Authorizing Provider amLODIPine (NORVASC) 5 MG Tablet Take 1 tablet by mouth twice daily 03/17/23 Yes Jaylon Gudino MD aspirin EC 81 MG Tablet Delayed Response Take 81 mg by mouth daily. Yes ProviderGerson MD hydrOXYzine (ATARAX) 25 MG Tablet TAKE 1 TABLET BY MOUTH EVERY 6 HOURS NEEDED FOR ITCHING 04/25/21 Yes Jaylon Gudino MD levothyroxine (SYNTHROID) 25 MCG Tablet Take 1 Tablet by mouth four times a week. 04/10/22 Yes Jaylon Gudino MD pravastatin (PRAVACHOL) 40 MG Tablet TAKE 2 TABLETS BY MOUTH NIGHTLY 02/20/23 Yes Claudia Sevilla PAC RABEprazole (ACIPHEX) 20 MG Tablet Delayed Response TAKE 2 TABLETS BY MOUTH ONCE DAILY TAKE 30-60 MINUTES BEFORE SUPPER 03/11/23 Yes Jaylon Gudino MD valsartan (DIOVAN) 160 MG Tablet Take 1 tablet by mouth once daily 04/06/23 Yes Jaylon Gudino MD There are no discontinued medications. I have reviewed the home medication list with the patient and have reconciled discrepancies. The list is accurate to the best of my knowledge. Smoking Status: Social History Tobacco Use ??? Smoking status: Former Packs/day: 1.00 Years: 10.00 Additional pack years: 0.00 Total pack years: 10.00 Types: Cigarettes Passive exposure: Past ??? Smokeless tobacco: Never Vaping Use ??? Vaping Use: Never used Substance Use Topics ??? Alcohol use: No Alcohol/week: 0.0 oz ??? Drug use: No Smoking Cessation Counseling Given: no Health Care Maintenance: Health Maintenance Due Topic Date Due ??? Hepatitis C Virus (HCV) Screening Never done ??? Respiratory Syncytial Virus (RSV) Immunization (Adult - or age 60+ years) (1 - 1-dose 60+ series) Never done ??? Zoster Immunization (2 of 3) 09/10/2015 ??? DTaP/Tdap/Td Immunization (2 - Td or Tdap) 08/20/2022 Orders Pended: no The following BPA's have been addressed with the patient today: BMI, Smoking, Depression and Fall Risk ETING CLERK * Jaylon Gudino MD - 04/20/2023 9:45 AM CST PROGRESS NOTE [facility] - INTERNAL MEDICINE [address] [place] [address] PHONE: [phone] FAX: [phone] 04/20/2023 NAME: Bacilio Ramirez, : 1945, Assessment ASSESSMENT & PLAN: Return in about 6 months (around 10/19/2023) for htn. Diagnoses and all orders for this visit: Essential hypertension, benign Comments: Controlled. Continue current medications. Infrarenal abdominal aortic aneurysm (AAA) without rupture (HCC) Comments: Stable. Continue to monitor. Other specified hypothyroidism Comments: Continue levothyroxine. Other hyperlipidemia Comments: Continue pravastatin and low-cholesterol diet. GERD without esophagitis Comments: Stable. Continue current medication. Upper respiratory tract infection, unspecified type Comments: Probably viral. Symptomatic treatment advised. Follow-up in 6 months, sooner if needed. RSV and zoster vaccines recommended. Chief Complaint Patient presents with ??? Hypertension 6 mo f/u ??? Nasal Congestion For 11 days HPI Patient is here for follow-up for hypertension other medical problems. Has sinus congestion postnasal drainage for almost 10 days. Symptoms started as cough and sinus congestion. Cough has resolved. No shortness of breath. Clear nasal drainage. ROS Review of systems was negative, except as documented in HPI PHYSICAL EXAM VITALS: Wt Readings from Last 3 Encounters: 04/20/23 175 lb (79.4 kg) 09/29/22 175 lb (79.4 kg) 03/31/22 180 lb (81.6 kg) Temp Readings from Last 3 Encounters: 04/20/23 97 ??F (36.1 ??C) (Temporal) 09/29/22 97.5 ??F (36.4 ??C) (Temporal) 03/31/22 97.8 ??F (36.6 ??C) (Temporal) BP Readings from Last 3 Encounters: 04/20/23 110/58 09/29/22 122/58 03/31/22 136/60 Pulse Readings from Last 3 Encounters: 04/20/23 62 09/29/22 60 03/31/22 58 Physical Exam Vitals and nursing note reviewed. Constitutional: Appearance: Normal appearance. He is normal weight. HENT: Head: Normocephalic. Right Ear: Tympanic membrane, ear canal and external ear normal. Left Ear: Tympanic membrane, ear canal and external ear normal. Mouth/Throat: Mouth: Mucous membranes are moist. Pharynx: Oropharynx is clear. Eyes: Extraocular Movements: Extraocular movements intact. Conjunctiva/sclera: [...] been reviewed and updated. Allergies Allergen Reactions ??? Sulfa Antibiotics Rash ??? Avelox [Moxifloxacin Hcl In Nacl] Unknown ??? Penicillins Hives ??? Simvastatin Other (see Comments) MUSCLE PAIN Current Outpatient Medications: ??? amLODIPine (NORVASC) 5 MG Tablet ??? aspirin EC 81 MG Tablet Delayed Response ??? hydrOXYzine (ATARAX) 25 MG Tablet ??? levothyroxine (SYNTHROID) 25 MCG Tablet ??? pravastatin (PRAVACHOL) 40 MG Tablet ??? RABEprazole (ACIPHEX) 20 MG Tablet Delayed Response ??? valsartan (DIOVAN) 160 MG Tablet I educated Bacilio regarding diagnoses and plan of care. He verbalizes understanding and will call the office if situation changes. Voice recognition software was utilized in this dictation. Despite proof reading, typographical errors and/or content errors may have occurred. By: Jaylon Gudino MD 04/20/2023 10:10 AM TICKETING CLERK ETING CLERK documented in this encounter Plan of Treatment Upcoming Encounters Date Type Department Care Team (Late st Contact Info) Description 04/25/2024 9:30 AM TICKETING CLERK Office Visit [facility] Medical Group - Internal Medicine - [place] [address] [place] [address] Jaylon Gudino MD [address] [place] [address] documented as of this encounter Visit Diagnoses Diagnosis Essential hypertension, benign- Primary Infrarenal abdominal aortic aneurysm (AAA) without rupture (HCC) Other specified hypothyroidism Other hyperlipidemia GERD without esophagitis Esophageal reflux Upper respiratory tract infection, unspecified type documented in this encounter Additional Health Concerns Assessment Noted Time PHQ-9 Depression Total Score: 0 04/20/19 9:50 AM TICKETING CLERK documented as of this encounter Care Teams Electric Blanket Packer Relationship Specialty Start Date End Date Jaylon Gudino MD [address] [place] [address] PCP - General Internal Medicine 01/16/16 documented as of this encounter
--- OUTSIDE RECORDS SUMMARY | 2024-03-03 11:28 | XMS_ITS | Encounter Summary ---
Author Organization [facility] Address [address] [place] [address] Phone Care Team Providers Care Sole Assessor Name Role Phone Jaylon Gudino MD Primary Care Provider Reason for Visit * Reason Comments Medication Refill Encounter Details Date Type Department Care Team (Late st Contact Info) Description 03/17/[address] [facility] Medical Group - Internal Medicine - [place] [address] [place] [phone] Jaylon Gudino MD [address] [facility] [place] [address] Medication Refill Social History Tobacco Use Types Packs/Day Years Used Date Smoking Tobacco: Former Cigarettes 1 10 Passive Smoke Exposure: Past Smokeless Tobacco: Never Alcohol Use Standard Drinks/Week Comments No 0 (1 standard drink = 0.6 oz pur e alcohol) PHQ-2 Answer Date Recorded Total Score - Questions 1-9 0 03/03 Sexually Active Control Partners Comments Yes Sex [...] Telephone Encounter - Luzma Liu RN - 03/17/2023 1:00 PM CST Medication(s) refilled and signed per [facility] Chronic Medication Refill Standing Order for Pediatricand Adult Patients. Requested Prescriptions Pending Prescriptions Disp Refills ??? amLODIPine (NORVASC) 5 MG Tablet [Pharmacy Med Name: amLODIPine Besylate 5 MG Oral Tablet] 180 Tablet 0 Sig: Take 1 tablet by mouth twice daily Calcium-Channel Blockers Protocol Passed - 03/17/2023 11:56 AM Passed - BP on record in the past year Clinician-entered: BP Readings from Last 3 Encounters: 09/29/22 122/58 03/31/22 136/60 02/06/22 144/60 Patient-entered: No data recorded Passed - Visit with relevant provider in past 12 months or upcoming 90 days Recent Visits Date Type Provider Dept 09/29/22 Office Visit Jaylon Gudino MD [facility] [place] 03/31/22 [facility] [place] Showing recent visits within past 365 days and meeting all other requirements Future Appointments Date Type Provider Dept 04/06/23 Appointment [facility] [place] Show[place] future appointments within next 90 days and meeting all other requirements R DISTRIBUTION ENGINEER documented in this encounter Plan of Treatment Upcoming Encounters Date Type Department Care Team (Late st Contact Info) Description 04/25/2024 9:30 AM POWER DISTRIBUTION ENGINEER Office Visit [facility] Medical Group - Internal Medicine [place] [address] [place] [address] Jaylon Gudino MD [address] [place] [address] documented as of this encounter Visit Diagnoses Not on filedocumented in this encounter Additional Health Concerns Assessment Noted Time PHQ-9 Depression Total Score: 0 04/17/19 21 9:00 AM POWER DISTRIBUTION ENGINEER documented as of this encounter Care Teams Sole Assessor Relationship Specialty Start Date End Date Jaylon Gudino MD [address] [place] [address] PCP - General Internal Medicine 01/16/16 documented as of this encounter
--- OUTSIDE RECORDS SUMMARY | 2024-03-03 11:28 | XMS_ITS | Encounter Summary ---
Author Organization [facility] Address [address] [place] [address] Phone Care Team Providers Care Gis Web Developer Name Role Phone Jaylon Gudino MD Primary Care Provider Reason for Visit * Reason Comments Medication Refill Encounter Details Date Type Department Care Team (Late st Contact Info) Description 11/15/2022 Refill [facility] - Internal Medicine - [place] [address] [place] [phone] Jaylon Gudino MD [address] [place] [place] [address] Medication Refill Social History Tobacco Use Types [...] file Not on file Not on file COVID-19 Exposure Response Date Recorded In the last 10 days, have brijesh mcdonald been in contact with someone who was confirmed or suspected to have Coronavirus/COVID-19? No / Unsure 11/13/2022 3:25 PM CDT documented as of this encounter Miscellaneous Notes * Telephone Encounter - Luzma Liu RN - 11/17/2022 9:17 AM CDT Per nursing clinical judgement, provider to review and approve the medication(s) order(s) if appropriate. Requested Prescriptions Pending Prescriptions Disp Refills pravastatin (PRAVACHOL) 40 MG Tablet [Pharmacy Med Name: Pravastatin Sodium 40 MG Oral Tablet] 180 Tablet 0 Sig: TAKE 2 TABLETS BY MOUTH NIGHTLY Hmg CoA Reductase Inhibitors Protocol Passed - 11/15/2022 3:49 PM Passed - Visit with relevant provider in past 12 months or upcoming 90 days Recent Visits Date Type Provider Dept 09/29/22 [facility] [place] 03/31/22 Office Visit Jaylon Gudino MD [facility] [place] 02/06/22 Office Visit Claudia Sevilla PAC [facility] [place] Showing recent visits within past 365 days [...] st Contact Info) Description 04/25/2024 9:30 AM BIOMETRIC TECHNICIAN [facility] - [facility] [address] [place] [address] Jaylon Gudino MD [address] [place] [address] documented as of this encounter Visit Diagnoses Not on filedocumented in this encounter Additional Health Concerns Assessment Noted Time PHQ-9 Depression Total Score: 0 04/17/19 21 9:00 AM BIOMETRIC TECHNICIAN documented as of this encounter Care Teams Gis Web Developer Relationship Specialty Start Date End Date Jaylon Gudino MD [address] [place] [address] PCP - General Internal Medicine 01/16/16 documented as of this encounter
--- OUTSIDE RECORDS SUMMARY | 2024-03-03 11:28 | XMS_ITS | Encounter Summary ---
Author Organization [facility] Address [address] [place] [address] Phone Care Team Providers Care Profiling Machine Setup Operator Name Role Phone Jaylon Gudino MD Primary Care Provider [phone] Reason for Visit * Reason Comments Medication Refill Encounter Details Date Type Department Care Team (Late st Contact Info) Description 04/06/[address] [facility] - Internal Medicine - [place] [address] [place] [phone] Jaylon Gudino MD [address] [facility] [place] [address] Medication Refill Social History Tobacco Use Types [...] Telephone Encounter - Luzma Liu RN - 04/06/2023 9:30 AM CST Medication(s) [facility] Medication Refill Standing Order for Pediatricand Adult Patients. Requested Prescriptions Pending Prescriptions Disp Refills ??? valsartan (DIOVAN) 160 MG Tablet [Pharmacy Med Name: Valsartan 160 MG Oral Tablet] 90 Tablet 0 Sig: Take 1 tablet by mouth once daily ARB Protocol Passed - 04/06/2023 6:51 AM Passed - Serum potassium on record [...] Dept 09/29/22 Office Visit [facility]ud[facility] [place] Show[place] recent visits within past 365 days and meeting all other requirements Future Appointments Date Type Provider Dept 04/20/23 Appointment Jaylon Gudino MD [facility] [place] Show[place] future appointments within next 90 days and meeting all other requirements Passed - GFR on record in past 12 months GFR, EST. NONAFRICAN Date Value Ref Range Status 09/29/2022 58 (L) >=60 Final RVISOR METAL FURNITURE ASSEMBLY documented in this encounter Plan of Treatment Upcoming Encounters Date Type Department Care Team (Late st Contact Info) Description 04/25/2024 9:30 AM SUPERVISOR METAL FURNITURE ASSEMBLY Office Visit [facility] - Internal Medicine - [place] [address] [place] [phone] Jaylon Gudino MD [address] [place] [address] documented as of this encounter Visit Diagnoses Not on filedocumented in this encounter Additional Health Concerns Assessment Noted Time PHQ-9 Depression Total Score: 0 04/17/19 9:00 AM SUPERVISOR METAL FURNITURE ASSEMBLY documented as of this encounter Care Teams Profiling Machine Setup Operator Relationship Specialty Start Date End Date Jaylon Gudino MD [address] [place] [address] PCP - General Internal Medicine 01/16/16 documented as of this encounter
--- OUTSIDE RECORDS SUMMARY | 2024-03-03 11:28 | XMS_ITS | Encounter Summary ---
Author Organization [facility] Address [address] [place] [address] Phone Care Team Providers Care Licensed Psychiatric Technician Name Role Phone Jaylon Gudino MD Primary Care Provider Reason for Visit * Reason Comments Medication Refill Encounter Details Date Type Department Care Team (Late st Contact Info) Description 02/19/2023 Refill [facility] - Internal Medicine - [place] [address] [place] [phone] Jaylon Gudino MD [address] [place] [address] Medication Refill Social History Tobacco Use Types [...] encounter Miscellaneous Notes * Telephone Encounter - Lzuma Liu RN - 02/20/2023 8:56 AM CST Per nursing clinical judgement, provider to review and approve the medication(s) order(s) if appropriate. Requested Prescriptions Pending Prescriptions Disp Refills pravastatin (PRAVACHOL) 40 MG Tablet [Pharmacy Med Name: Pravastatin Sodium 40 MG Oral Tablet] 180 Tablet 0 Sig: TAKE 2 TABLETS BY MOUTH NIGHTLY Hmg CoA Reductase Inhibitors Protocol Passed - 02/19/2023 5:57 PM Passed - Visit with relevant provider in past 12 months or upcoming 90 days Recent Visits Date Type Provider Dept 09/29/22 Office Visit Jaylon Gudino MD [facility] [place] 03/31/22 Office Visit Jaylon Gudino MD [facility] [place] Show[place] recent visits within past 365 days and meeting all other requirements Future Appointments Date Type Provider Dept 04/06/23 Appointment Jaylon Gudino MD [facility] [place] future appointments within next 90 days [...] Value Ref Range Status 09/29/2022 No Final OF STOCK documented in this encounter Plan of Treatment Upcoming Encounters Date Type Department Care Team (Late st Contact Info) Description 04/25/2024 9:30 AM HEAD OF STOCK Office Visit [facility] - Internal Medicine [facility] [address] [place] [address] Jaylon Gudino MD [address] [place] [address] documented as of this encounter Visit Diagnoses Not on filedocumented in this encounter Additional Health Concerns Assessment Noted Time PHQ-9 Depression Total Score: 0 04/17/19 9:00 AM HEAD OF STOCK documented as of this encounter Care Teams Licensed Psychiatric Technician Relationship Specialty Start Date End Date Jaylon Gudino MD [address] [place] [address] PCP - General Internal Medicine 01/16/16 documented as of this encounter
--- OUTSIDE RECORDS SUMMARY | 2024-03-03 11:28 | XMS_ITS | Encounter Summary ---
Author Organization [facility] Address [address] [place] [address] Phone Care Team Providers Care Measurement Department Chief Clerk Name Role Phone Jaylon Gudino MD Primary Care Provider Reason for Visit * Reason Comments Medication Refill Encounter Details Date Type Department Care Team (Late st Contact Info) Description 03/10/2023 Refill [facility] Medical Group - Internal Medicine - [place] [address] [place] [phone] Jaylon Gudino MD [address] [facility] [facility] [address] [place] [address] Medication Refill Social History Tobacco Use Types [...] Telephone Encounter - Luzma Liu RN - 03/11/2023 8:06 AM CST Medication(s) refilled and signed per [facility] Chronic Medication Refill Standing Order for Pediatricand Adult Patients. Requested Prescriptions Pending Prescriptions Disp Refills ??? RABEprazole (ACIPHEX) 20 MG Tablet Delayed Response [Pharmacy Med Name: RABEprazole Sodium 20 MG Oral Tablet Delayed Release] 90 Tablet 0 Sig: TAKE 2 TABLETS BY MOUTH ONCE DAILY TAKE 30-60 MINUTES BEFORE SUPPER Proton Pump Inhibitors Protocol Passed - 03/10/2023 8:38 PM Passed - Visit with relevant provider in past 12 months or upcoming 90 days Recent Visits Date Type Provider Dept 09/29/22 Office Visit Jaylon Gudino MD [facility] [place] 03/31/22 [facility] [place] Show[facility] recent visits within past 365 days and meeting all other requirements Future Appointments Date Type Provider Dept 04/06/23 Appointment Jaylon Gudino MD [facility] [place] Showing future appointments within next 90 days and meeting all other requirements A P SUPERVISOR documented in this encounter Plan of Treatment Upcoming Encounters Date Type Department Care Team (Late st Contact Info) Description 04/25/2024 9:30 AM A P SUPERVISOR Office Visit [facility] - Internal Medicine [facility] [address] [place] [address] Jaylon Gudino MD [address] [place] [address] documented as of this encounter Visit Diagnoses Not on filedocumented in this encounter Additional Health Concerns Assessment Noted Time PHQ-9 Depression Total Score: 0 04/17/19 21 9:00 AM A P SUPERVISOR documented as of this encounter Care Teams Measurement Department Chief Clerk Relationship Specialty Start Date End Date Jaylon Gudino MD [address] [place] [address] PCP - General Internal Medicine 01/16/16 documented as of this encounter
--- OUTSIDE RECORDS SUMMARY | 2024-03-03 11:28 | XMS_ITS | Encounter Summary ---
Author Organization [facility] Address [address] [place] [address] Phone Care Team Providers Care Marketing Pr Intern Name Role Phone Jaylon Gudino MD Primary Care Provider Reason for Visit * Reason Comments Medication Refill Encounter Details Date Type Department Care Team (Late st Contact Info) Description 12/23/2022 Refill [facility] Medical Group - Internal Medicine - [place] [address] [place] [phone] Jaylon Gudino MD [address] [facility] [place] [address] Medication Refill Social History Tobacco Use Types [...] Telephone Encounter - Luzma Liu RN - 12/23/2022 1:49 PM CDT Medication(s) refilled and signed [facility] Medication Refill Standing Order for Pediatricand Adult Patients. Requested Prescriptions Pending Prescriptions Disp Refills ??? valsartan (DIOVAN) 160 MG Tablet [Pharmacy Med Name: Valsartan 160 MG Oral Tablet] 90 Tablet 0 Sig: Take 1 tablet by mouth once daily ARB Protocol Passed - 12/23/2022 1:48 PM Passed - Serum potassium on record in [...] Dept 09/29/22 Office Visit Jaylon Gudino MD [facility] 03/31/22 Office Visit Jaylon Gudino MD [facility] [place] 02/06/22 Office Visit Claudia Sevilla PAC [facility] Showing recent visits within past [...] st Contact Info) Description 04/25/2024 9:30 AM DEVELOPER PROVER UPHOLSTERING [facility] Visit [facility] - Internal [facility] - [place] [address] [place] [address] Jaylon Gudino MD [address] [place] [address] documented as of this encounter Visit Diagnoses Not on filedocumented in this encounter Additional Health Concerns Assessment Noted Time PHQ-9 Depression Total Score: 0 04/17/19 21 9:00 AM DEVELOPER PROVER UPHOLSTERING documented as of this encounter Care Teams Marketing Pr Intern Relationship Specialty Start Date End Date Jaylon Gudino MD [address] [place] [address] PCP - General Internal Medicine 01/16/16 documented as of this encounter
--- OUTSIDE RECORDS SUMMARY | 2024-03-03 11:28 | XMS_ITS | Encounter Summary ---
Author Organization [facility] Address [address] [place] [address] Phone Care Team Providers Care Graduate Assistant Name Role Phone Jaylon Gudino MD Primary Care Provider Reason for Visit * Reason Comments Medication Refill Encounter Details Date Type Department Care Team (Late st Contact Info) Description 12/22/2022 Refill [facility] Medical Group - Internal Medicine - [place] [employer] [address] [place] [phone] Jaylon Gudino MD [address] [facility] [place] [address] Medication Refill Social History Tobacco Use Types [...] Encounter - Luzma Liu RN - 12/23/2022 8:32 AM CDT Medication(s) refilled and signed per [facility] Chronic Medication Refill Standing Order for Pediatricand Adult Patients. Requested Prescriptions Pending Prescriptions Disp Refills ??? amLODIPine (NORVASC) 5 MG Tablet [Pharmacy Med Name: amLODIPine Besylate 5 MG Oral Tablet] 180 Tablet 0 Sig: Take 1 tablet by mouth twice daily Calcium-Channel Blockers Protocol Passed - 12/22/2022 8:34 PM Passed - BP on record in the past year Clinician-entered: BP Readings from Last 3 Encounters: 09/29/22 122/58 03/31/22 136/60 02/06/22 144/60 Patient-entered: No data recorded Passed - Visit with relevant provider in past 12 months or upcoming 90 days Recent Visits Date Type Provider Dept 09/29/22 Office Visit Jaylon Gudino MD [facility] [place] 03/31/22 Office Visit Jaylon Gudino MD [facility] [place] 02/06/22 Office Visit Claudia Sevilla [facility] Showing recent visits within past 365 days and meeting all other requirements Future Appointments No visits were found meeting these conditions. Showing future appointments within next 90 days and meeting all other requirements documented in this encounter Plan of Treatment Upcoming Encounters Date Type Department Care Team (Late st Contact Info) Description 04/25/2024 9:30 AM SALES REPRESENTATIVE CHURCH FURNITURE Office Visit [facility] Medical Group - Internal Medicine - [employer] [address] [place] [phone] Jaylon Gudino MD [address] [place] [address] documented as of this encounter Visit Diagnoses Not on filedocumented in this encounter Additional Health Concerns Assessment Noted Time PHQ-9 Depression Total Score: 0 04/17/19 21 9:00 AM SALES REPRESENTATIVE CHURCH FURNITURE documented as of this encounter Care Teams Graduate Assistant Relationship Specialty Start Date End Date Jaylon Gudino MD [address] [place] [address] PCP - General Internal Medicine 01/16/16 documented as of this encounter
--- OUTSIDE RECORDS SUMMARY | 2024-03-03 11:28 | XMS_ITS | Encounter Summary ---
Author Organization [facility] [employer] Care Team Providers Care Health Care Recruiter Name Role Phone Jaylon Gudino MD Primary Care Provider [phone] Encounter Details Date Type Department Care Team (Latest Contact Info) Description 11/13/2022 Travel Social History Tobacco Use Types Packs/Day [...] PM CDT documented as of this encounter Plan of Treatment Upcoming Encounters Date Type Department Care Team (Late st Contact Info) Description 04/25/2024 9:30 AM PASSENGER CAR UPHOLSTERER APPRENTICE Office Visit [facility] Medical Group - Internal Medicine - [place] [address] [place] [phone] Jaylon Gudino MD [address] [place] [address] documented as of this encounter Visit Diagnoses Not on filedocumented in this encounter Additional Health Concerns Assessment Noted Time PHQ-9 Depression Total Score: 0 04/17/19 21 9:00 AM PASSENGER CAR UPHOLSTERER APPRENTICE documented as of this encounter Care Teams Health Care Recruiter Relationship Specialty Start Date End Date Jaylon Gudino MD [address] [place] [address] PCP - General Internal Medicine 01/16/16 documented as of this encounter
--- OUTSIDE RECORDS SUMMARY | 2024-03-03 11:29 | XMS_ITS | Encounter Summary ---
Author Organization [facility] Address [address] [place] [address] Phone Care Team Providers Care Curtain Supervisor Name Role Phone Jaylon Gudino MD Primary Care Provider Encounter Details Date Type Department Care Team (Late st Contact Info) Description 10/06/2022 Telephone [facility] Internal Medicine - [place] [address] [place] [address] Jaylon Gudino MD [address] [place] [address] Social History Tobacco Use Types [...] suspected to have Coronavirus/COVID-19? No / Unsure 09/29/2022 9:43 AM CDT documented as of this encounter Miscellaneous Notes * Telephone Encounter - May - 10/06/2022 3:02 PM CDT Called and spoke to patient gave results he was in full understandings . * Telephone Encounter - May - 10/06/2022 3:02 PM CDT ----- Message from Luzma Liu RN sent at 09/30/2022 9:22 AM CDT ----- ----- Message ----- From: Jaylon Gudino MD Sent: 09/30/2022 9:17 AM CDT To: [place] Nurse Pool CMP, lipids, HbA1c, CBC, thyroid function test-okay. No change in meds. documented in this encounter Plan of Treatment Upcoming Encounters Date Type Department Care Team (Late st Contact Info) Description 04/25/2024 9:30 AM MOLD FORMS BUILDER Office Visit [facility] - Internal Medicine [facility] [address] [place] [address] Jaylon Gudino MD [address] [place] [address] documented as of this encounter Visit Diagnoses Not on filedocumented in this encounter Additional Health Concerns Assessment Noted Time PHQ-9 Depression Total Score: 0 04/17/19 21 9:00 AM MOLD FORMS BUILDER documented as of this encounter Care Teams Curtain Supervisor Relationship Specialty Start Date End Date Jaylon Gudino MD [address] [place] [address] PCP - General Internal Medicine 01/16/16 documented as of this encounter
--- OUTSIDE RECORDS SUMMARY | 2024-03-03 11:29 | XMS_ITS | Encounter Summary ---
Author Organization [facility] Address [address] [place] [address] Phone Care Team Providers Care Shop Girl Name Role Phone Jaylon Gudino MD Primary Care Provider Reason for Visit * Reason Onset Date Comments Results 10/23/2022 Encounter Details Date Type Department Care Team (Late st Contact Info) Description 10/23/2022 Telephone [facility] - Internal Medicine - [place] [address] [place] [address] Jaylon Gudino MD [address] [facility] [place] [address] Results Social History Tobacco Use Types Packs/Day Years [...] suspected to have Coronavirus/COVID-19? No / Unsure 10/22/2022 8:05 AM CDT documented as of this encounter Miscellaneous Notes * Telephone Encounter - Luzma Liu, RN - 10/23/2022 12:53 PM CDT ----- Message from Jaylon Gudino MD sent at 10/23/2022 12:50 PM CDT ----- US of AA- AAA 3.2 cm. Slightly bigger. Rpt US in one year documented in this encounter Plan of Treatment Upcoming Encounters Date Type Department Care Team (Late st Contact Info) Description 04/25/2024 9:30 AM DRAFTER REFRIGERATION Office Visit [facility] - Internal Medicine [place] [address] [place] [address] Jaylon Gudino MD [address] [place] [address] documented as of this encounter Visit Diagnoses Not on filedocumented in this encounter Additional Health Concerns Assessment Noted Time PHQ-9 Depression Total Score: 0 04/17/19 21 9:00 AM DRAFTER REFRIGERATION documented as of this encounter Care Teams Shop Girl Relationship Specialty Start Date End Date Jaylon Gudino MD [address] [place] [address] PCP - General Internal Medicine 01/16/16 documented as of this encounter
--- OUTSIDE RECORDS SUMMARY | 2024-03-03 11:29 | XMS_ITS | Encounter Summary ---
Author Organization [facility] Address [address] [place] [address] Phone Care Team Providers Care Events Manager Name Role Phone Jaylon Gudino MD Primary Care Provider Encounter Details Date Type Department Care Team (Late st Contact Info) Description 11/13/2022 3:30 PM CDT Immunization [facility] - Internal Medicine - [place] [address] [facility] [place] [place] [phone] Encounter for immunization (Primary Dx) Discharge Disposition: Discharged to home or Selfcare [...] PM CDT documented as of this encounter Progress Notes * India Terrell, FORMULATOR COMPOUNDER - 11/13/2022 3:30 PM CDT Bacilio presents today for immunization/injection of Influenza, ordered by Dr. Jaylon Gudino on 11/13/2022 was administered without incident. Patient tolerated it well. See immunizations/injections activity. documented in this encounter Plan of Treatment Upcoming Encounters Date Type Department Care Team (Late st Contact Info) Description 04/25/2024 9:30 AM NAIL SETTER Office Visit [facility] Medical Group - Internal Medicine - [place] [address] [place] [phone] Jaylon Gudino MD [address] [facility] [place] [address] documented as of this encounter Visit Diagnoses Diagnosis Encounter for immunization- Primary Need for other specified prophylactic vaccination against single bacterial disease documented in this encounter Additional Health Concerns Assessment Noted Time PHQ-9 Depression Total Score: 0 04/17/19 21 9:00 AM NAIL SETTER documented as of this encounter Care Teams Events Manager Relationship Specialty Start Date End Date Jaylon Gudino MD [address] [place] [address] PCP - General Internal Medicine 01/16/16 documented as of this encounter
--- OUTSIDE RECORDS SUMMARY | 2024-03-03 11:29 | XMS_ITS | Encounter Summary ---
Author Organization [facility] Address [address] [place] [address] Phone Care Team Providers Care Truck Car And Bus Cleaner Name Role Phone Jaylon Gudino MD Primary Care Provider [phone] Reason for Referral * Radiology Services (Routine) - Closed Specialty Diagnoses / Procedures Referred By Contac t Referred To Contact Radiology Diagnoses Infrarenal abdominal aortic aneurysm (AAA) without rupture (HCC) Procedures US AORTA WITH DOPPLER LIMITED Jaylon Gudino MD [address] [place] [address] Phone: tel: fax: Referral ID Status Reason Start Date Expiration Date Visits Re quested Visits Authorized [id number] Closed 09/29/2022 1 1 Reason for Visit * Radiology Services (Routine) - Closed Specialty Diagnoses / Procedures Referred By Lilly kraft Referred To Contact Radiology Diagnoses Infrarenal abdominal aortic aneurysm (AAA) without rupture (HCC) Procedures US AORTA WITH DOPPLER LIMITED Jaylon Gudino MD [address] [place] [address] Phone: tel: fax: Referral ID Status Reason Start Date Expiration Date Visits Re quested Visits Authorized [id number] Closed 09/29/2022 1 1 Encounter Details Date Type Department Care Team (Late st Contact Info) Description 10/22/2022 8:08 AM CDT - 10/22/2022 11:59 PM CDT Hospital Encounter [facility] Ultrasound [address] [place] [address] Jaylon Gudino MD [address] [place] [address] Discharge Disposition: Discharged to home or Selfcare [...] Recorded In the last 10 days, have yo u been in contact with someone who was confirmed or suspected to have Coronavirus/COVID-19? No / Unsure 10/22/2022 8:05 AM CDT documented as of this encounter Medications at Time of Discharge aspirin EC 81 MG Tablet Delayed Response Take 81 mg by mouth daily. amLODIPine (NORVASC) 5 MG Tablet Take 1 tablet by mouth twice daily 180 Tablet 09/22/2022 12/23/2022 hydrOXYzine (ATARAX) 25 MG Tablet TAKE 1 TABLET BY MOUTH EVERY 6 HOURS NEEDED FOR ITCHING 40 Tablet 04/25/2021 10/19/2023 levothyroxine (SYNTHROID) 25 MCG TabletIndications :Elevated TSH Take 1 Tablet by mouth four times a week. 90 Tablet 3 04/10/2022 07/20/2023 pravastatin (PRAVACHOL) 40 MG Tablet TAKE 2 TABLETS BY MOUTH NIGHTLY 180 Tablet 08/16/2022 11/17/2022 RABEprazole (ACIPHEX) 20 MG Tablet Delayed Response TAKE 2 TABLETS BY MOUTH ONCE DAILY TAKE 30-60 MINUTES BEFORE SUPPER 90 Tablet 03/13/2022 03/11/2023 valsartan (DIOVAN) 160 MG Tablet Take 1 tablet by mouth once daily 90 Tablet 10/06/2022 12/23/2022 documented as of this encounter Plan of Treatment Upcoming Encounters Date Type Department Care Team (Late st Contact Info) Description 04/25/2024 9:30 AM COMMISSARY CLERK Office Visit [facility] - Internal Medicine - [place] [address] [place] [phone] Jaylon Gudino MD [address] [place] [address] documented as of this encounter Procedures Procedure Name Priority Date/Time Associated Diagnosis Comments US AORTA WITH DOPPLER LIMITED Routine 10/22/2022 9:26 AM CDT Infrarenal abdominal aortic aneurysm (AAA) without rupture (HCC) documented in this encounter Results * US AORTA WITH DOPPLER LIMITED (10/22/2022 9:26 AM CDT) Anatomical Region Laterality Modality Abdomen, vascular N/A Ultrasound 10/22/2022 5:04 PM CDT Impressions 10/22/2022 5:07 PM CDT IMPRESSION: Mild aneurysmal dilatation of the proximal abdominal aorta measuring 3.2 cm, previously 2.9 cm. Mild ectasia of the bilateral common iliac arteries measuring 1.6 cm on the right and 1.6 cm on the left. Hepatic steatosis. REFERENCE: Please see below follow up recommendations for abdominal aortic aneurysm surveillance per Society for Vascular Surgery Guidelines: < 2.5 cm No follow up necessary 2.52.9 cm Recommended ultrasound follow up every 10 years 3.0-3.9 cm Recommended ultrasound follow up every 3 years 4.0-4.9 cm Recommended ultrasound follow up every 12 months, vascular surgery consult 5.0-5.4 cm Recommended ultrasound follow up every 6 months, vascular surgery consult >= 5.5 cm Referral to vascular surgeon Based upon Society for Vascular Surgery Guidelines: J Vasc Surgery 2008 50: [id number]; updated Mar 2017 J Vasc Surgery 67:277 Narrative 10/22/2022 5:07 PM CDT EXAM DESCRIPTION: ?? US AORTA WITH DOPPLER LIMITED REASON FOR STUDY: ?? For follow-up of abdominal aortic aneurysm. TECHNIQUE: Grayscale images acquired of the aorta and stored on PACS. Selected color Doppler and spectral images recorded. COMPARISON: 08/06/2020. FINDINGS: AORTIC CALIBER MAXIMAL PROXIMAL: ??3.2 x 3.2 ??cm. ??Previously this measured 2.9 cm. MID: ??3.1 x 2.7 ??cm. DISTAL: ??2.7 x 2.7 ??cm. ILIAC DIAMETER RIGHT: ??1.6 x 1.3 ??cm. LEFT: ??1.1 x 1.6 ??cm. OTHER: ??The liver is increased in echogenicity suggesting steatosis. THIS IS AN ELECTRONICALLY VERIFIED FINAL REPORT 10/22/2022 5:04 PM - Electronically signed by ??Dheeraj Gonzalez M.D. CH: HEBER D: ??10/22/2022 5:04 PM T: ??10/22/2022 5:04 PM Report ID: [id number] Reading Location: ??[id number] Procedure Note Dheeraj Gonzalez Jr., MD - 10/22/2022 EXAM DESCRIPTION: US AORTA WITH DOPPLER LIMITED REASON FOR STUDY: For follow-up of abdominal aortic aneurysm. TECHNIQUE: Grayscale images acquired of the aorta and stored on PACS. Selected color Doppler and spectral images recorded. COMPARISON: 08/06/2020. FINDINGS: AORTIC CALIBER MAXIMAL PROXIMAL: 3.2 x 3.2 cm. Previously this measured 2.9 cm. MID: 3.1 x 2.7 cm. DISTAL: 2.7 x 2.7 cm. ILIAC DIAMETER RIGHT: 1.6 x 1.3 cm. LEFT: 1.1 x 1.6 cm. OTHER: The liver is increased in echogenicity suggesting steatosis. THIS IS AN ELECTRONICALLY VERIFIED FINAL REPORT 10/22/2022 5:04 PM - Electronically signed by Dheeraj Gonzalez M.D. CH: CH Report ID: [id number] Reading Location: [id number] IMPRESSION: Mild aneurysmal dilatation of the proximal abdominal aorta measuring 3.2 cm, previously 2.9 cm. Mild ectasia of the bilateral common iliac arteries measuring 1.6 cm on the right and 1.6 cm on the left. Hepatic steatosis. REFERENCE: Please see below follow up recommendations for abdominal aortic aneurysm surveillance per Society for Vascular Surgery Guidelines: < 2.5 cm No follow up necessary 2.52.9 cm Recommended ultrasound follow up every 10 years 3.0-3.9 cm Recommended ultrasound follow up every 3 years 4.0-4.9 cm Recommended ultrasound follow up every 12 months, vascular surgery consult 5.0-5.4 cm Recommended ultrasound follow up every 6 months, vascular surgery consult >= 5.5 cm Referral to vascular surgeon Based upon Society for Vascular Surgery Guidelines: J Vasc Surgery 2008 50: [id number]; updated Mar 2017 J Vasc Surgery 67:277 us Jaylon Gudino MD IMG US ORDERABLES Final Res ult documented in this encounter Visit Diagnoses Diagnosis Infrarenal abdominal aortic aneurysm (AAA) without rupture (HCC) documented in this encounter Additional Health Concerns Assessment Noted Time PHQ-9 Depression Total Score: 0 04/17/19 21 9:00 AM COMMISSARY CLERK documented as of this encounter Care Teams Truck Car And Bus Cleaner Relationship Specialty Start Date End Date Jaylon Gudino MD [address] [place] [address] PCP - General Internal Medicine 01/16/16 documented as of this encounter
--- OUTSIDE RECORDS SUMMARY | 2024-03-03 11:29 | XMS_ITS | Encounter Summary ---
Author Organization [facility] [employer] Care Team Providers Care Ball Point Splitter Name Role Phone Jaylon Gudino MD Primary Care Provider [phone] Encounter Details Date Type Department Care Team (Latest Contact Info) Description 10/22/2022 Travel Social History Tobacco Use Types Packs/Day [...] AM CDT documented as of this encounter Plan of Treatment Upcoming Encounters Date Type Department Care Team (Late st Contact Info) Description 04/25/2024 9:30 AM SENIOR NET C DEVELOPER Office Visit [facility] - Internal Medicine - [place] [address] [place] [phone] Jaylon Gudino MD [address] [place] [address] documented as of this encounter Visit Diagnoses Not on filedocumented in this encounter Additional Health Concerns Assessment Noted Time PHQ-9 Depression Total Score: 0 04/17/19 21 9:00 AM SENIOR NET C DEVELOPER documented as of this encounter Care Teams Ball Point Splitter Relationship Specialty Start Date End Date Jaylon Gudino MD [address] [place] [address] PCP - General Internal Medicine 01/16/16 documented as of this encounter
--- OUTSIDE RECORDS SUMMARY | 2024-03-03 11:29 | XMS_ITS | Encounter Summary ---
Author Organization [facility] Address [address] [place] [address] Phone Care Team Providers Care [employer] Consultant Name Role Phone Jaylon Gudino MD Primary Care Provider [phone] Encounter Details Date Type Department Care Team (Late st Contact Info) Description 11/13/2022 Telephone [facility] - [facility] - [place] [address] [place] [address] Jaylon Gudino MD [address] [place] [address] Social History Tobacco Use Types [...] encounter Miscellaneous Notes * Telephone Encounter - India Terrell CMA - 11/13/2022 4:14 PM CDT Come and got his flu shot. documented in this encounter Plan of Treatment Upcoming Encounters Date Type Department Care Team (Late st Contact Info) Description 04/25/2024 9:30 AM 3RD MATE Office Visit [facility] - Internal Medicine [place] [address] [place] [address] Jaylon Gudino MD [address] [place] [address] documented as of this encounter Visit Diagnoses Not on filedocumented in this encounter Additional Health Concerns Assessment Noted Time PHQ-9 Depression Total Score: 0 04/17/19 21 9:00 AM 3RD MATE documented as of this encounter Care Teams [employer] Consultant Relationship Specialty Start Date End Date Jaylon Gudino MD [address] [place] [address] PCP - General Internal Medicine 01/16/16 documented as of this encounter
--- OUTSIDE RECORDS SUMMARY | 2024-03-03 11:30 | XMS_ITS | Encounter Summary ---
Author Organization [facility] Address [address] [place] [address] Phone Care Team Providers Care Block Setter Gypsum Name Role Phone Jaylon Gudino MD Primary Care Provider [phone] Reason for Visit * Reason Comments Medication Refill Encounter Details Date Type Department Care Team (Late st Contact Info) Description 08/15/2022 Refill [facility] - [place] [address] [place] [phone] Jaylon Gudino MD [address] [facility] [place] [address] Medication Refill Social History Tobacco Use Types Packs/Day Years Used Date Smoking Tobacco: Former Cigarettes 1 10 Smokeless Tobacco: Never Alcohol Use Standard Drinks/Week [...] Telephone Encounter - Luzma Liu RN - 08/15/2022 11:02 AM CDT Per nursing clinical judgement, provider to review and approve the medication(s) order(s) if appropriate. Requested Prescriptions Pending Prescriptions Disp Refills pravastatin (PRAVACHOL) 40 MG Tablet [Pharmacy Med Name: Pravastatin Sodium 40 MG Oral Tablet] 180 Tablet 0 Sig: TAKE 2 TABLETS BY MOUTH NIGHTLY Hmg CoA Reductase Inhibitors Protocol Passed - 08/15/2022 9:38 AM Passed - Visit with relevant provider in past 12 months or upcoming 90 days Recent Visits Date Type Provider Dept 03/31/22 Office Visit Jaylon Gudino MD [facility] [place] 02/06/22 Office Visit Claudia Sevilla PAC [facility] [place] 09/23/21 Office Visit Jaylon Gudino MD [facility] [place] Showing recent visits within past 365 days and meeting all other requirements Future Appointments Date Type Provider Dept 09/29/22 Appointment Jaylon Gudino MD [facility] [place] Showing future appointments within next 90 days and meeting all other requirements Passed - Lipid panel in past 12 months LDL Date Value Ref Range Status 03/31/2022 75 5 - 130 mg/dL Final HDL CHOLESTEROL Date Value Ref Range Status 03/31/2022 68.2 >40 mg/dL Final CHOLESTEROL Date Value Ref Range Status 03/31/2022 181 <=200 mg/dL Final TRIGLYCERIDES Date Value Ref Range Status 03/31/2022 188 (H) <150 mg/dL Final VLDL Date Value Ref Range Status 03/31/2022 38 5 - 55 mg/dL Final CHOL/HDL RATIO Date Value Ref Range Status 03/31/2022 2.7 0.0 - 4.4 Final NON-HDL CHOLESTEROL Date Value Ref Range Status 03/31/2022 112.8 <130 mg/dL Final documented in this encounter Plan of Treatment Upcoming Encounters Date Type Department Care Team (Late st Contact Info) Description 04/25/2024 9:30 AM IMPROVEMENT LEAD [facility] Visit [facility] [place] [address] [place] [phone] Jaylon Gudino MD [address] [place] [address] documented as of this encounter Visit Diagnoses Not on filedocumented in this encounter Additional Health Concerns Assessment Noted Time PHQ-9 Depression Total Score: 0 04/17/19 21 9:00 AM IMPROVEMENT LEAD documented as of this encounter Care Teams Block Setter Gypsum Relationship Specialty Start Date End Date Jaylon Gudino MD [address] [place] [address] PCP - General Internal Medicine 01/16/16 documented as of this encounter
--- OUTSIDE RECORDS SUMMARY | 2024-03-03 11:30 | XMS_ITS | Encounter Summary ---
Author Organization [facility] Address [address] [place] [address] Phone Care Team Providers Care Distribution Accounting Clerk Name Role Phone Jaylon Gudino MD Primary Care Provider Encounter Details Date Type Department Care Team (Late st Contact Info) Description 10/02/2022 Telephone [facility] - [place] [address] [place] [address] Jaylon Gudino MD [address] [place] [address] Social History Tobacco Use Types [...] encounter Miscellaneous Notes * Telephone Encounter - Lexii Chua RMA - 10/03/2022 3:00 PM CDT Called and spoke to patient gave results he was in full understandings . * Telephone Encounter - Lexii Chua RMA - 10/02/2022 2:02 PM CDT Called and left a VM for patient to call me back . * Telephone Encounter - Lexii Chua RMA - 10/02/2022 2:02 PM CDT ----- Message from Luzma Liu RN sent at 09/30/2022 9:22 AM CDT ----- ----- Message ----- From: Jaylon Gudino MD Sent: 09/30/2022 9:17 AM CDT To: Nyal Parks Nurse Pool CMP, lipids, HbA1c, CBC, thyroid function test-okay. No change in meds. documented in this encounter Plan of Treatment Upcoming Encounters Date Type Department Care Team (Late st Contact Info) Description 04/25/2024 9:30 AM DYE LAB TECHNICIAN [facility] Visit [facility] [place] [address] [place] [address] Jaylon Gudino MD [address] [place] [address] documented as of this encounter Visit Diagnoses Not on filedocumented in this encounter Additional Health Concerns Assessment Noted Time PHQ-9 Depression Total Score: 0 04/17/19 21 9:00 AM DYE LAB TECHNICIAN documented as of this encounter Care Teams Distribution Accounting Clerk Relationship Specialty Start Date End Date Jaylon Gudino MD [address] [place] [address] PCP - General Internal Medicine 01/16/16 documented as of this encounter
--- OUTSIDE RECORDS SUMMARY | 2024-03-03 11:30 | XMS_ITS | Encounter Summary ---
Author Organization [facility] [employer] Care Team Providers Care Digital Measurement Advisor Name Role Phone Jaylon Gudino MD Primary Care Provider [phone] Encounter Details Date Type Department Care Team (Latest Contact Info) Description 09/29/2022 Travel Social History Tobacco Use Types Packs/Day [...] st Contact Info) Description 04/25/2024 9:30 AM ZIPPER IRONER Office Visit [facility] - Internal Medicine - [place] [address] [place] [phone] Jaylon Gudino MD [address] [place] [address] documented as of this encounter Visit Diagnoses Not on filedocumented in this encounter Additional Health Concerns Assessment Noted Time PHQ-9 Depression Total Score: 0 04/17/19 21 9:00 AM ZIPPER IRONER documented as of this encounter Care Teams Digital Measurement Advisor Relationship Specialty Start Date End Date Jaylon Gduino MD [address] [place] [address] PCP - General Internal Medicine 01/16/16 documented as of this encounter
--- OUTSIDE RECORDS SUMMARY | 2024-03-03 11:30 | XMS_ITS | Encounter Summary ---
Author Organization [facility] Address [address] [place] [address] Phone Care Team Providers Care Interior Design Coordinator Name Role Phone Jaylon Gudino MD Primary Care Provider Encounter Details Date Type Department Care Team (Late st Contact Info) Description 10/02/2022 Telephone [facility] - [place] [address] [place] [address] Jaylon Gudino MD [address] [place] [address] Social History Tobacco Use Types [...] Notes * Telephone Encounter - May - 10/02/2022 3:19 PM CDT Patient called back I gave him his normal lab results and he was in complete understanding documented in this encounter Plan of Treatment Upcoming Encounters Date Type Department Care Team (Late st Contact Info) Description 04/25/2024 9:30 AM HOOKMAN Office Visit [facility] - Internal Medicine - [place] [address] [place] [address] Jaylon Gudino MD [address] [place] [address] documented as of this encounter Visit Diagnoses Not on filedocumented in this encounter Additional Health Concerns Assessment Noted Time PHQ-9 Depression Total Score: 0 04/17/19 21 9:00 AM HOOKMAN documented as of this encounter Care Teams Interior Design Coordinator Relationship Specialty Start Date End Date Jaylon Gudino MD [address] [place] [address] PCP - General Internal Medicine 01/16/16 documented as of this encounter
--- OUTSIDE RECORDS SUMMARY | 2024-03-03 11:30 | XMS_ITS | Encounter Summary ---
Author Organization [facility] Address [address] [place] [address] Phone Care Team Providers Care Diesel Trailer Mechanic Name Role Phone Jaylon Gudino MD Primary Care Provider Reason for Visit * Reason Comments Medication Refill Encounter Details Date Type Department Care Team (Late st Contact Info) Description 06/18/2022 Refill [facility] - Internal Medicine - [place] [address] [place] [phone] Jaylon Gudino MD [address] [facility] [place] [address] Medication Refill Social History Tobacco Use Types [...] Telephone Encounter - Luzma Liu RN - 06/19/2022 8:07 AM CDT Medication([facility]) [facility] Standing Order for Pediatricand Adult Patients. Requested Prescriptions Pending Prescriptions Disp Refills ??? valsartan (DIOVAN) 160 MG Tablet [Pharmacy Med Name: Valsartan 160 MG Oral Tablet] 90 Tablet 0 Sig: Take 1 tablet by mouth once daily ARB Protocol Passed - 06/18/2022 8:00 PM Passed - Serum potassium on record in past 12 months POTASSIUM Date Value Ref Range Status 03/31/2022 3.9 3.5 - 5.1 mmol/L Final Passed - BP on record in the past year Clinician-entered: BP Readings from Last 3 Encounters: 03/31/22 136/60 02/06/22 144/60 09/23/21 122/66 Patient-entered: No data recorded Passed - Visit with relevant provider in past year or upcoming 90 days Recent Visits Date Type Provider Dept 03/31/22 Office Visit Jaylon Gudino MD [facility] [place] 02/06/22 Office Visit Claudia Sevilla [facility] [place] 09/23/21 Office Visit Jaylon Gudino MD [facility] [place] Showing recent visits within past 365 days and meeting all other requirements Future Appointments No visits were found meeting these conditions. Showing future appointments within next 90 days and meeting all other requirements Passed - GFR on record in past 12 months GFR, EST. NONAFRICAN Date Value Ref Range Status 03/31/2022 56 (L) >=60 Final ??? amLODIPine (NORVASC) 5 MG Tablet [Pharmacy Med Name: amLODIPine Besylate 5 MG Oral Tablet] 180 Tablet 0 Sig: Take 1 tablet by mouth twice daily Calcium-Channel Blockers Protocol Passed - 06/18/2022 8:00 PM Passed - BP on record in the past year Clinician-entered: BP Readings from Last 3 Encounters: 03/31/22 136/60 02/06/22 144/60 09/23/21 122/66 Patient-entered: No data recorded Passed - Visit with relevant provider in past 12 months or upcoming 90 days Recent Visits Date Type Provider Dept 03/31/22 Office Visit Jaylon Gudino MD [facility] [place] 02/06/22 Office Visit Claudia Sevilla PAC [facility] [place] 09/23/21 [facility] [place] Showing recent visits within past 365 days and meeting all other requirements Future Appointments No visits were found meeting these conditions. Showing future appointments within next 90 days and meeting all other requirements documented in this encounter Plan of Treatment Upcoming Encounters Date Type Department Care Team (Late st Contact Info) Description 04/25/2024 9:30 AM CORPORATE GENERAL MANAGER Office Visit [facility] - [place] [address] [place] [address] Jaylon Gudino MD [address] [place] [address] documented as of this encounter Visit Diagnoses Not on filedocumented in this encounter Additional Health Concerns Assessment Noted Time PHQ-9 Depression Total Score: 0 04/17/19 21 9:00 AM CORPORATE GENERAL MANAGER documented as of this encounter Care Teams Diesel Trailer Mechanic Relationship Specialty Start Date End Date Jaylon Gudino MD [address] [place] [address] PCP - General Internal Medicine 01/16/16 documented as of this encounter
--- OUTSIDE RECORDS SUMMARY | 2024-03-03 11:30 | XMS_ITS | Encounter Summary ---
Author Organization [facility] Address [address] [place] [address] Phone Care Team Providers Care Adz Worker Name Role Phone Jaylon Gudino MD Primary Care Provider [phone] Encounter Details Date Type Department Care Team (Late st Contact Info) Description 10/02/2022 Telephone [facility] - [place] [address] [place] [address] Jaylon Gudino MD [address] [place] [address] Social History Tobacco Use Types [...] * Telephone Encounter - May - 10/02/2022 3:20 PM CDT Patient would like to know if he needs to continue taking thyroid medication since his labs were normal documented in this encounter Plan of Treatment Upcoming Encounters Date Type Department Care Team (Late st Contact Info) Description 04/25/2024 9:30 AM WHITE LEAD GRINDER Office Visit [facility] - [place] [address] [place] [address] Jaylon Gudino MD [address] [place] [address] documented as of this encounter Visit Diagnoses Not on filedocumented in this encounter Additional Health Concerns Assessment Noted Time PHQ-9 Depression Total Score: 0 04/17/19 21 9:00 AM WHITE LEAD GRINDER documented as of this encounter Care Teams Adz Worker Relationship Specialty Start Date End Date Jaylon Gudino MD [address] [place] [address] PCP - General Internal Medicine 01/16/16 documented as of this encounter
--- OUTSIDE RECORDS SUMMARY | 2024-03-03 11:30 | XMS_ITS | Encounter Summary ---
Author Organization [facility] Address [address] [place] [address] Phone Care Team Providers Care Biomass Facilitator Name Role Phone Jaylon Gudino MD Primary Care Provider Reason for Visit * Reason Comments Medication Refill Encounter Details Date Type Department Care Team (Late st Contact Info) Description 09/20/2022 Refill [facility] - [place] [address] [place] [phone] Jaylon Gudino MD [address] [facility] [address] Medication Refill Social History Tobacco Use Types [...] Telephone Encounter - Luzma Liu RN - 09/22/2022 8:26 AM CDT Medication([facility]) [facility] Medication Refill Standing Order for Pediatricand Adult Patients. Requested Prescriptions Pending Prescriptions Disp Refills ??? amLODIPine (NORVASC) 5 MG Tablet [Pharmacy Med Name: amLODIPine Besylate 5 MG Oral Tablet] 180 Tablet 0 Sig: Take 1 tablet by mouth twice daily Calcium-Channel Blockers Protocol Passed - 09/20/2022 6:38 PM Passed - BP on record in the past year Clinician-entered: BP Readings from Last 3 Encounters: 03/31/22 136/60 02/06/22 144/60 09/23/21 122/66 Patient-entered: No data recorded Passed - Visit with relevant provider in past 12 months or upcoming 90 days Recent Visits Date Type Provider Dept 03/31/22 Office Visit Jaylon Gudino MD [facility] [place] 02/06/22 Office Visit Claudia Sevilla PAC [facility] [place] 09/23/21 Office Visit Jaylon Gudino MD [facility] [place] Showing recent visits within past 365 days and meeting all other requirements Future Appointments Date Type Provider Dept 09/29/22 Appointment [facility] [place] Showing future appointments within next 90 days and meeting all other requirements documented in this encounter Plan of Treatment Upcoming Encounters Date Type Department Care Team (Late st Contact Info) Description 04/25/2024 9:30 AM LAW OFFICE RECEPTIONIST Office Visit [facility] - Internal Medicine - [place] [address] [place] [phone] Jaylon Gudino MD [address] [place] [address] documented as of this encounter Visit Diagnoses Not on filedocumented in this encounter Additional Health Concerns Assessment Noted Time PHQ-9 Depression Total Score: 0 04/17/19 21 9:00 AM LAW OFFICE RECEPTIONIST documented as of this encounter Care Teams Biomass Facilitator Relationship Specialty Start Date End Date Jaylon Gudino MD [address] [place] [address] PCP - General Internal Medicine 01/16/16 documented as of this encounter
--- OUTSIDE RECORDS SUMMARY | 2024-03-03 11:30 | XMS_ITS | Encounter Summary ---
Author Organization [facility] Address [address] [place] [address] Phone Care Team Providers Care Polymerization Engineer Name Role Phone Jaylon Gudino MD Primary Care Provider [phone] Reason for Referral * Radiology Services (Routine) - Closed Specialty Diagnoses / Procedures Referred By Lilly kraft Referred To Contact Radiology Diagnoses Infrarenal abdominal aortic aneurysm (AAA) without rupture (HCC) Procedures US AORTA WITH DOPPLER LIMITED Jaylon Gudino MD [address] [place] [address] Phone: tel: fax: Referral ID Status Reason Start Date Expiration Date Visits Re quested Visits Authorized [id number] Closed 09/29/2022 1 1 Reason for Visit * Reason Comments Hypertension 6 mo f/u Encounter Details Date Type Department Care Team (Late st Contact Info) Description 09/29/2022 10:00 AM CDT Office Visit [facility] - Internal Medicine - [place] [address] [place] [address] Jaylon Gudino MD [address] [place] [address] Essential hypertension, benign (Primary Dx); Infrarenal abdominal aortic aneurysm (AAA) without rupture (HCC); Mixed hyperlipidemia; Acute blood loss anemia; Other specified hypothyroidism; Hyperglycemia; Bilateral impacted cerumen Discharge Disposition: Discharged to home or Selfcare [...] AM CDT documented as of this encounter Last Filed Vital Signs Vital Sign Reading Time Taken Comments Blood Pressure 122/58 09/29/2022 9:47 AM CDT Pulse 60 09/29/2022 9:47 AM CDT Temperature 36.4 ??C (97.5 ??F) 09/29/2022 9:47 AM CD T Respiratory Rate - - Oxygen Saturation 98% 09/29/2022 9:47 AM CDT Inhaled Oxygen Concentration - - Weight 79.4 kg (175 lb) 09/29/2022 9:47 AM CDT Height 177.8 cm (5' 10 ) 09/29/2022 9:47 AM CDT Body Mass Index 25.11 09/29/2022 9:47 AM CDT documented in this encounter Progress Notes * India Terrell CMA - 09/29/2022 10:00 AM CDT Bacilio screened for Social Determinants of Health and patient declined to answer the questions. * India Terrell CMA - 09/29/2022 10:00 AM CDT Bacilio Ramirez, 77 y.o., male is here for Hypertension (6 mo f/u) Medication Refills: Patient reports/denies need for medication refills. Orders Pended: no Requested Prescriptions No prescriptions requested or ordered in this encounter Home Medications Medication Sig Start Date End Date Taking? Authorizing Provider amLODIPine (NORVASC) 5 MG Tablet Take 1 tablet by mouth twice daily 09/22/22 Yes Jaylon Gudino MD aspirin EC 81 [...] Tablet TAKE 2 TABLETS BY MOUTH NIGHTLY 08/16/22 Yes Jaylon Gudino MD RABEprazole (ACIPHEX) 20 MG Tablet Delayed Response TAKE 2 TABLETS BY MOUTH ONCE DAILY TAKE 30-60 MINUTES BEFORE SUPPER 03/13/22 Yes Jaylon Gudino MD valsartan (DIOVAN) 160 MG Tablet Take 1 tablet by mouth once daily 06/19/22 Yes Jaylon Gudino MD There are no discontinued medications. I have reviewed the home medication list with the patient and have reconciled discrepancies. The list is accurate to the best of my knowledge. Smoking Status: Social History Tobacco Use ??? Smoking status: Former Packs/day: 1.00 Years: 10.00 Pack years: 10.00 Types: Cigarettes Passive exposure: Past ??? Smokeless tobacco: Never Vaping Use ??? Vaping Use: Never used Substance Use Topics ??? Alcohol use: No Alcohol/week: 0.0 oz ??? Drug use: No Smoking Cessation Counseling Given: no Health Care Maintenance: Health Maintenance Due Topic Date Due ??? Hepatitis C Virus (HCV) Screening Never done ??? Zoster Immunization (2 of 3) 09/10/2015 ??? SARS-COV-2 Immunization (5 - Moderna series) 08/24/2021 ??? DTaP/Tdap/Td Immunization (2 - Td or Tdap) 08/20/2022 Orders Pended: no The following BPA's have been addressed with the patient today: Smoking * Luzma Liu RN - 09/29/2022 10:00 AM CDT Bacilio had labs drawn per order of Dr. Gudino. Verbal consent was obtained. Bacilio tolerated the labs well without incident. Labs drawn from left AC * Jaylon Gudino MD - 09/29/2022 10:00 AM CDT PROGRESS NOTE [facility] - INTERNAL MEDICINE [facility] [place] [address] PHONE: [phone] FAX: [phone] 09/29/2022 NAME: Bacilio Ramirez, : 1945, Assessment ASSESSMENT & PLAN: Return in about 6 months (around 04/01/2023) for htn. Diagnoses and all orders for this visit: Essential hypertension, benign Comments: Controlled. Continue current medication Orders: - CMP (COMPREHENSIVE METABOLIC PANEL); Future - LIPID PANEL; Future - CMP (COMPREHENSIVE METABOLIC PANEL) - LIPID PANEL Infrarenal abdominal aortic aneurysm (AAA) without rupture (HCC) Comments: Set up for ultrasound for follow-up Orders: - US AORTA WITH DOPPLER LIMITED; Future Mixed hyperlipidemia Comments: Continue pravastatin and low-cholesterol diet Orders: - CMP (COMPREHENSIVE METABOLIC PANEL); Future - LIPID PANEL; Future - CMP (COMPREHENSIVE METABOLIC PANEL) - LIPID PANEL Acute blood loss anemia Comments: Repeat CBC Orders: - COMPLETE BLOOD COUNT (CBC) WITH DIFF; Future - COMPLETE BLOOD COUNT (CBC) WITH DIFF Other specified hypothyroidism Comments: Continue levothyroxine Orders: - THYROID STIMULATING HORMONE (TSH); Future - THYROID STIMULATING HORMONE (TSH) Hyperglycemia Comments: Continue low carb diet and check HbA1c Orders: - HEMOGLOBIN A1C W/ ESTIMATED GLUCOSE; Future - HEMOGLOBIN A1C W/ ESTIMATED GLUCOSE Bilateral impacted cerumen Comments: Moderate amount of wax removed from both ears with loop curette. Patient tolerated well. Other orders - aspirin EC 81 MG Tablet Delayed Response; Take 81 mg by mouth daily. Follow-up in 6 months, sooner if needed Chief Complaint Patient presents with ??? Hypertension 6 mo f/u HPI Patient is here for follow-up for hypertension other medical problems. Recently had left hand injury while working on saw. Had tenderness and no injury requiring repair. Being followed at [facility]. Complains of plugged up ears and decreased hearing. No drainage. Tolerating medications well. ROS Review of systems was negative, except as documented in HPI PHYSICAL EXAM VITALS: Wt Readings from Last 3 Encounters: 09/29/22 175 lb (79.4 kg) 03/31/22 180 lb (81.6 kg) 02/06/22 178 lb 14.4 oz (81.1 kg) Temp Readings from Last 3 Encounters: 09/29/22 97.5 ??F (36.4 ??C) (Temporal) 03/31/22 97.8 ??F (36.6 ??C) (Temporal) 02/06/22 97.9 ??F (36.6 ??C) (Temporal) BP Readings from Last 3 Encounters: 09/29/22 122/58 03/31/22 136/60 02/06/22 144/60 Pulse Readings from Last 3 Encounters: 09/29/22 60 03/31/22 58 02/06/22 65 Physical Exam Vitals and nursing note reviewed. Constitutional: Appearance: Normal appearance. He is normal weight. HENT: Head: Normocephalic. Ears: Comments: Moderate amount of wax in both ears present. Eyes: Extraocular Movements: Extraocular movements intact. Conjunctiva/sclera: [...] Normal range of motion and neck supple. Comments: Surgeries: Scar on the left and present Skin: General: Skin is warm and dry. [...] may have occurred. By: Jaylon Gudino MD 09/29/2022 10:36 AM CDT documented in this encounter Procedure Notes * Jaylon Gudino MD - 09/29/2022 10:00 AM CDTAssociated Order(s): REMOVE IMPACTED EAR WAX VIA INSTRUMENT BILAT Under direct vision moderate amount of wax removed from both ears with loop curette. Patient tolerated well. Postprocedure tympanic membranes well visualized. No infection. documented in this encounter Plan of Treatment Upcoming Encounters Date Type Department Care Team (Late st Contact Info) Description 04/25/2024 9:30 AM SINGE MACHINE OPERATOR Office Visit [facility] - Internal Medicine - [place] [address] [place] [address] Jaylon Gudino MD [address] [place] [address] documented as of this encounter Procedures Procedure Name Priority Date/Time Associated Diagnosis Comments HEMOGLOBIN A1C W/ ESTIMATED GLUCOSE Routine 09/29/2022 10:21 AM CDT Hyperglycemia CBC WITH AUTO DIFFERENTIAL Routine 09/29/2022 10:21 AM CDT Acute blood loss anemia THYROID STIMULATING HORMONE (TSH) Routine 09/29/2022 10:21 AM CDT Other specified hypothyroidism LIPID PANEL Routine 09/29/2022 10:21 AM CDT Essential hypertension, benign Mixed hyperlipidemia CMP (COMPREHENSIVE METABOLIC PANEL) Routine 09/29/2022 10:21 AM CDT Essential hypertension, benign Mixed hyperlipidemia COMPLETE BLOOD COUNT (CBC) WITH DIFF Routine 09/29/2022 10:21 AM CDT Acute blood loss anemia REMOVE IMPACTED EAR WAX VIA INSTRUMENT BILAT Routine 09/29/2022 10:00 AM CDT Bilateral impacted cerumen documented in this encounter Results * US [...] Electronically signed by ??Dheeraj Gonzalez M.D. CH: CH D: ??10/22/2022 5:04 PM T: ??10/22/2022 5:04 PM Report ID: [id number] Reading Location: ??[id number] Procedure Note Dheeraj Gonzalez Jr., MD - [...] Electronically signed by Dheeraj Gonzalez M.D. CH: HEBER Report ID: [id number] Reading Location: [id number] IMPRESSION: Mild aneurysmal dilatation of the proximal [...] Vasc Surgery 67:277 us Jaylon Gudino MD [facility] [place] US ORDERABLES Final Res ult * (ABNORMAL) CBC WITH AUTO DIFFERENTIAL (09/29/2022 10:21 AM CDT) WBC 5.38 4.00 - 12.00 10(3)/mcL 09/29/2022 3:31 PM CDT [facility] RBC 4.17(L) 4.40 - 5.80 10(6)/mcL 09/29/2022 3:31 PM CDT [facility] HEMOGLOBIN (HGB) 12.3(L) 13.0 - 16.5 g/dL 09/29/2022 3:31 PM CDT [facility] HEMATOCRIT (HCT) 37.8(L) 38.0 - 50.0 % 09/29/2022 3:31 PM CDT [facility] MCV 90.6 82.0 - 96.0 fL 09/29/2022 3:31 PM CDT [facility] MCH 29.5 26.0 - 32.0 pg 09/29/2022 3:31 PM CDT [facility] MCHC 32.5 31.0 - 36.0 g/dL 09/29/2022 3:31 PM CDT [facility] PLATELET COUNT 212 140 - 440 10(3)/mcL 09/29/2022 3:31 PM CDT [facility] RDW 11.5(L) 11.8 - 15.5 % 09/29/2022 3:31 PM CDT [facility] MPV 11.1 8.0 - 12.6 fL 09/29/2022 3:31 PM CDT [facility] NEUTROPHILS 58.7 40.0 - 68.0 % 09/29/2022 3:31 PM CDT [facility] LYMPHOCYTES 26.6 19.0 - 49.0 % 09/29/2022 3:31 PM CDT [facility] MONOCYTES 11.0 3.0 - 13.0 % 09/29/2022 3:31 PM CDT [facility] EOSINOPHILS 2.6 0.0 - 8.0 % 09/29/2022 3:31 PM CDT [facility] BASOPHILS 1.1(H) 0.0 - 1.0 % 09/29/2022 3:31 PM CDT [facility] ABSOLUTE NEUTROPHILS 3.16 1.40 - 5.30 10(3)/mcL 09/29/2022 3:31 PM CDT [facility] ABSOLUTE LYMPHOCYTES 1.43 0.90 - 3.30 10(3)/mcL 09/29/2022 3:31 PM CDT [facility] ABSOLUTE MONOCYTES 0.59 0.10 - 0.90 10(3)/mcL 09/29/2022 3:31 PM CDT [facility] ABSOLUTE EOSINOPHIL 0.14 0.00 - 0.50 10(3)/mcL 09/29/2022 3:31 PM CDT [facility] ABSOLUTE BASOPHILS 0.06 0.00 - 0.10 10(3)/mcL 09/29/2022 3:31 PM CDT [facility] NRBC PER 100 WBC 0 09/30/19 3:31 PM CDT [facility] Blood Venipuncture / Unknown 09/29/2022 10:21 AM CDT 09/29/2022 10:21 AM CDT us Jaylon Gudino MD HEMATOLOGY ORDERABLES Final Result Performing Organization Address City/[facility]/ZIP Co de Phone Number [facility] [address] [place] [address] * THYROID STIMULATING HORMONE (TSH) (09/29/2022 10:21 AM CDT) Pathologist [facility] TSH 4.520 0.300 - 5.000 mIU/L 09/29/2022 7:23 PM CDT [facility] Blood Venipuncture / Unknown 09/29/2022 10:21 AM CDT 09/29/2022 10:21 AM CDT us Jaylon Gudino MD CHEMISTRY ORDERABLES Final Result Performing Organization Address City/[facility] Co de Phone Number [facility] [address] [place] [address] * HEMOGLOBIN A1C W/ ESTIMATED GLUCOSE (09/29/2022 10:21 AM CDT) HGB-A1C 6.0 4.0 - 6.0 % 09/29/2022 6:00 PM CDT [facility] Est Average Glucose 125.5 mg/dL 09/29/2022 6:00 PM CDT [facility] Blood Venipuncture / Unknown 09/29/2022 10:21 AM CDT 09/29/2022 10:21 AM CDT Narrative [facility] - 09/29/2022 6:00 PM CDT HEMOGLOBIN A1C: DIABETIC PATIENTS: WELL-CONTROLLED: ?? 6.2 - 7.0 INTERMEDIATE WELL-CONTROLLED: ??7.0 - 9.0 POORLY-CONTROLLED: ??>9.0 Jaylon Gudino MD CHEMISTRY ORDERABLES Final Result Performing Organization Address City/[facility]/ZIP Co de Phone Number [facility] [address] [place] [address] * (ABNORMAL) LIPID PANEL (09/29/2022 10:21 AM CDT) CHOLESTEROL 176 <200 mg/dL 09/29/2022 7:23 PM CDT [facility] TRIGLYCERIDES 230(H) <150 mg/dL 09/29/2022 7:23 PM CDT [facility] HDL CHOLESTEROL 60.9 >40 mg/dL 7:23 PM CDT [facility] LDL 69 5 - 130 mg/dL 09/29/2022 7:23 PM CDT [facility] VLDL 46 5 - 55 mg/dL 09/29/2022 7:23 PM CDT [facility] CHOL/HDL RATIO 2.9 0.0 - 4.4 09/29/2022 7:23 PM CDT [facility] NON-HDL CHOLESTEROL 115.1 <130 mg/dL 09/29/2022 7:23 PM CDT [facility] Blood Venipuncture / Unknown 09/29/2022 10:21 AM CDT 09/29/2022 10:21 AM CDT us Jaylon Gudino MD CHEMISTRY ORDERABLES Final Result Performing Organization Address City/[facility]/ZIP Co de Phone Number [facility] [address] [place] [address] * (ABNORMAL) CMP (COMPREHENSIVE METABOLIC PANEL) (09/29/2022 10:21 AM CDT) SODIUM 138 136 - 144 mmol/L 09/29/2022 7:23 PM CDT [facility] POTASSIUM 4.5 3.5 - 5.1 mmol/L 09/29/2022 7:23 PM CDT [facility] CHLORIDE 104 100 - 110 mmol/L 09/29/2022 7:23 PM [facility] CO2, VENOUS 21(L) 22 - 32 mmol/L 09/29/2022 7:23 PM T [facility] ANION GAP 17.5 8.0 - 20.0 mmol/L 09/29/2022 7:23 PM T [facility] GLUCOSE 97 70 - 99 mg/dL 09/29/2022 7:23 PM T [facility] BUN 24(H) 8 - 23 mg/dL 09/29/2022 7:23 PM [facility] CREATININE, BLOOD 1.21 0.80 - 1.30 mg/dL 09/29/2022 7:23 PM [facility] BUN/CREATININE RATIO 20 12 - 20 ratio 09/29/2022 7:23 PM [facility] TOTAL PROTEIN 7.0 6.0 - 8.3 g/dL 09/29/2022 7:23 PM [facility] ALBUMIN 4.6 3.5 - 5.2 g/dL 09/29/2022 7:23 PM [facility] Comment: The colormetric methods used for the determination of Albumin may lead to falsely elevated test results in patients suffering from renal failure or insufficiency due to interference with other proteins. A/G RATIO 1.9 1.0 - 2.0 09/29/2022 7:23 PM [facility] CALCIUM 10.1 8.7 - 10.5 mg/dL 09/29/2022 7:23 PM [facility] T BILI 0.3 0.2 - 1.2 mg/dL 09/29/2022 7:23 PM [facility] SGOT (AST) 22 <=40 U/L 09/29/2022 7:23 PM T [facility] SGPT (ALT) 25 <=41 U/L 09/29/2022 7:23 PM CDT [facility] ALKALINE PHOSPHATASE 64 40 - 130 U/L 09/29/2022 7:23 PM CDT [facility] IS THE PATIENT REQUIRED TO BE FASTING? No 09/29/2022 7:23 PM CDT [facility] GFR, ESTIMATED >60 >=60 09/29/2022 7:23 PM CDT [facility] Comment: Creatinine Clearance is the preferred criteria for selecting drug dose adjustments in renally impaired patients. ??The GFR is provided as additional pertinent clinical information. GFR is reported in mL/min/1.73 sq m. Calculation based on the Chronic Kidney Disease Epidemiology Collaboration (CKD- EPI) equation refit without adjustment for race. GFR, EST. >60 >=60 023 7:23 PM CDT [facility] GFR, EST. NONAFRICAN 58(L) >=60 09/29/2022 7:23 PM CDT [facility] Blood Venipuncture / Unknown 09/29/2022 10:21 AM CDT 09/29/2022 10:21 AM CDT us Jaylon Gudino MD CHEMISTRY ORDERABLES Final Result [facility] [address] [place] [address] * REMOVE IMPACTED EAR WAX VIA INSTRUMENT BILAT (09/29/2022 10:00 AM CDT) Narrative Jaylon Gudino MD - 09/29/2022 10:00 AM CDT Jaylon Gudino MD ? 09/29/2022 ??4:21 PM Under direct vision moderate amount of wax removed from both ears with loop curette. ??Patient tolerated well. ??Postprocedure tympanic membranes well visualized. ??No infection. us Jaylon Gudino MD PROCEDURE/MINOR SURGICAL OR DERABLES Final Result documented in this encounter Visit Diagnoses Diagnosis Essential hypertension, benign- Primary Infrarenal abdominal aortic aneurysm (AAA) without rupture (HCC) Mixed hyperlipidemia Acute blood loss anemia Acute posthemorrhagic anemia Other specified hypothyroidism Hyperglycemia Other abnormal glucose Bilateral impacted cerumen Impacted cerumen Infrarenal abdominal aortic aneurysm (AAA) without rupture (HCC) documented in this encounter Additional Health Concerns Assessment Noted Time PHQ-9 Depression Total Score: 0 04/17/19 21 9:00 AM SINGE MACHINE OPERATOR documented as of this encounter Care Teams Polymerization Engineer Relationship Specialty Start Date End Date Jaylon Gudino MD [address] [place] [address] PCP - General Internal Medicine 01/16/16 documented as of this encounter
--- OUTSIDE RECORDS SUMMARY | 2024-03-03 11:30 | XMS_ITS | Encounter Summary ---
Author Organization [facility] Address [address] [place] [address] Phone Care Team Providers Care Records Supervisor Name Role Phone Jaylon Gudino MD Primary Care Provider [phone] Reason for Visit * Reason Comments Medication Refill Encounter Details Date Type Department Care Team (Late st Contact Info) Description 10/06/[address] [facility] - Internal Medicine - [place] [address] [place] [phone] Jaylon Gudino MD [address] [place] [place] [address] Medication Refill Social History Tobacco Use Types [...] Telephone Encounter - Luzma Liu RN - 10/06/2022 10:50 AM CDT Medication(s) refilled and signed per [facility] Chronic Medication Refill Standing Order for Pediatricand Adult Patients. Requested Prescriptions Pending Prescriptions Disp Refills ??? valsartan (DIOVAN) 160 MG Tablet [Pharmacy Med Name: Valsartan 160 MG Oral Tablet] 90 Tablet 0 Sig: Take 1 tablet by mouth once daily ARB Protocol Passed - 10/06/2022 10:47 AM Passed - Serum potassium on record [...] Dept 09/29/22 Office Visit Jaylon Gud[facility] [place] 03/31/22 Office Visit Jaylon [facility] [place] 02/06/22 Office Visit Claudia Sevilla, [facility] [place] Showing recent visits within past 365 [...] st Contact Info) Description 04/25/2024 9:30 AM BUSINESS ANALYSIS ANALYST Office Visit [facility] - Internal Medicine - [place] [address] [place] [phone] Jaylon Gudino MD [address] [place] [address] documented as of this encounter Visit Diagnoses Not on filedocumented in this encounter Additional Health Concerns Assessment Noted Time PHQ-9 Depression Total Score: 0 04/17/19 21 9:00 AM BUSINESS ANALYSIS ANALYST documented as of this encounter Care Teams Records Supervisor Relationship Specialty Start Date End Date Jaylon Gudino MD [address] [place] [address] PCP - General Internal Medicine 01/16/16 documented as of this encounter
--- OUTSIDE RECORDS SUMMARY | 2024-03-03 11:31 | XMS_ITS | Encounter Summary ---
Author Organization [facility] Address [address] [place] [address] Phone Care Team Providers Care Auto Mechanics Instructor Name Role Phone Jaylon Gudino MD Primary Care Provider [phone] Reason for Visit * Reason Onset Date Comments Results 04/09/2022 Encounter Details Date Type Department Care Team (Late st Contact Info) Description 04/09/2022 Telephone [facility] - [place] [address] [place] [address] Jaylon Gudino MD [address] [facility] [address] Results Social History Tobacco Use [...] suspected to have Coronavirus/COVID-19? No / Unsure 03/31/2022 9:43 AM INTERIOR DESIGN PROFESSIONAL documented as of this encounter Miscellaneous Notes * Telephone Encounter - Luzma Liu RN - 04/09/2022 2:01 PM CST Pt aware and verbalizes understanding. RIOR DESIGN PROFESSIONAL * Telephone Encounter - Luzma Liu RN - 04/09/2022 1:56 PM CST ----- Message from Jaylon Gudino MD sent at 04/01/2022 11:54 AM INTERIOR DESIGN PROFESSIONAL ----- Labs reviewed. CMP- Bun elevated. Need to increase fluid intake B12 level- okay TSH- mildly elevated. Need to start Levothyroxine 25mcg 4 times a week since feels tired RIOR DESIGN PROFESSIONAL documented in this encounter Plan of Treatment Upcoming Encounters Date Type Department Care Team (Late st Contact Info) Description 04/25/2024 9:30 AM INTERIOR DESIGN PROFESSIONAL Office Visit [facility] - Internal Medicine - [place] [address] [place] [phone] Jaylon Gudino MD [address] [place] [address] documented as of this encounter Visit Diagnoses Diagnosis Elevated TSH- Primary Other abnormal blood chemistry documented in this encounter Additional Health Concerns Assessment Noted Time PHQ-9 Depression Total Score: 0 04/17/19 21 9:00 AM INTERIOR DESIGN PROFESSIONAL documented as of this encounter Care Teams Auto Mechanics Instructor Relationship Specialty Start Date End Date Jaylon Gudino MD [address] [place] [address] PCP - General Internal Medicine 01/16/16 documented as of this encounter
--- OUTSIDE RECORDS SUMMARY | 2024-03-03 11:31 | XMS_ITS | Encounter Summary ---
Author Organization [facility] Address [address] [place] [address] Phone Care Team Providers Care Flight Manager Name Role Phone Jaylon Gudino MD Primary Care Provider [phone] Reason for Visit * Reason Comments Generalized Weakness Joint Pain Fever For about a week Encounter Details Date Type Department Care Team (Late st Contact Info) Description 02/06/2022 9:00 AM MEDICAL SALES REPRESENTATIVE Office Visit [facility] - Internal Medicine - [place] [address] [place] [address] Claudia Sevilla, [facility] [address] [place] [address] Arthralgia, unspecified joint (Primary Dx); Chest congestion; Fever, unspecified fever cause Discharge Disposition: Discharged to home or Selfcare Social History Tobacco Use Types Packs/Day Years Used Date Smoking Tobacco: Former Cigarettes 1 10 Smokeless Tobacco: Never Tobacco Cessation:Counseling Given: No [...] Sign Reading Time Taken Comments Blood Pressure 144/60 02/06/2022 9:19 AM MEDICAL SALES REPRESENTATIVE Pulse 65 02/06/2022 9:19 AM MEDICAL SALES REPRESENTATIVE Temperature 36.6 ??C (97.9 ??F) 02/06/2022 9:19 AM CS T Respiratory Rate 14 02/06/2022 9:19 AM MEDICAL SALES REPRESENTATIVE Oxygen Saturation 98% 02/06/2022 9:19 AM MEDICAL SALES REPRESENTATIVE Inhaled Oxygen Concentration - - Weight 81.1 kg (178 lb 14.4 oz) 02/06/2022 9:19 AM MEDICAL SALES REPRESENTATIVE Height 177.8 cm (5' 10 ) 02/06/2022 9:19 AM MEDICAL SALES REPRESENTATIVE Body Mass Index 25.67 02/06/2022 9:19 AM MEDICAL SALES REPRESENTATIVE documented in this encounter Functional Status * Question Answer Date of Assessment Author Little interest or pleasure in doing things Not at all 02/06/2022 9:00 AM Lexii Mckeon RMA Feeling down, depressed, or hopeless Not at all 02/06/2022 9:00 AM MEDICAL SALES REPRESENTATIVE Lexii Chua RMA * Over the past 2 weeks, how often have you been bothered by any of the following problems? Question Answer Date of Assessment Author Patient Health Questionnaire -2 Score 0 02/06/2022 9:00 AM MEDICAL SALES REPRESENTATIVE Lexii Chua RMA documented as of this encounter Patient Instructions * Patient Instructions* Lexii Chua RMA - 02/06/2022 9:00 AM MEDICAL SALES REPRESENTATIVE Pneumonia is a serious lung infection that can make you very sick. There are now two vaccines recommended by the Center for Disease Control and Prevention (CDC) to protect against pneumonia for all patients who are 65 years and older and patients under 65 with certain conditions that put them at a higher risk. Request your pneumonia vaccines at your Primary Care Physician???s office or your localpharmacy. CAL SALES REPRESENTATIVE documented in this encounter Progress Notes * Lexii Chua RMA - 02/06/2022 9:00 AM CST Bacilio Ramirez, 76 y.o., male is here for Generalized Weakness, Joint Pain, and Fever (For about a week ) Medication Refills: Patient reports/denies need for medication refills. Orders Pended: no Requested Prescriptions No prescriptions requested or ordered in this encounter Home Medications Medication Sig Start Date End Date Taking? Authorizing Provider amLODIPine (NORVASC) 5 MG Tablet Take 1 tablet by mouth twice daily 12/13/21 Jaylon Gudino MD hydrOXYzine (ATARAX) 25 MG Tablet TAKE 1 TABLET BY MOUTH EVERY 6 HOURS NEEDED FOR ITCHING 04/25/21 Jaylon Gudino MD pravastatin (PRAVACHOL) 40 MG Tablet TAKE 2 TABLETS BY MOUTH NIGHTLY 01/20/22 Jaylon Gudino MD RABEprazole (ACIPHEX) 20 MG Tablet Delayed Response TAKE 2 TABLETS BY MOUTH ONCE DAILY. TAKE 30-60 MINUTES BEFORE SUPPER. 11/05/21 Jaylon Gudino MD valsartan (DIOVAN) 160 MG Tablet Take 1 tablet by mouth once daily 12/13/21 Jaylon Gudino MD There are no discontinued medications. I have reviewed the home medication list with the patient and have reconciled discrepancies. The list is accurate to the best of my knowledge. Smoking Status: Social History Tobacco Use ??? Smoking status: Former Packs/day: 1.00 Years: 10.00 Pack years: 10.00 Types: Cigarettes ??? Smokeless tobacco: Never Vaping Use ??? Vaping Use: Never used Substance Use Topics ??? Alcohol use: No Alcohol/week: 0.0 oz ??? Drug use: No Smoking Cessation Counseling Given: no Health Care Maintenance: Health Maintenance Due Topic Date Due ??? DTaP/Tdap/Td Immunization (1 - Tdap) Never done ??? Zoster Immunization (2 of 3) 09/10/2015 ??? SARS-COV-2 Immunization (5 - Booster for Moderna series) 08/24/2021 ??? Pneumococcal Immunization (65+ years) (2 - PCV) 12/17/2021 Orders Pended: no The following BPA's have been addressed with the patient today: BMI, TDAP, Pneumonia and Depression CAL SALES REPRESENTATIVE * DiClaudia rock, PAC - 02/06/2022 9:00 AM CST Chief Complaint: Chief Complaint Patient presents with ??? Generalized Weakness ??? Joint Pain ??? Fever For about a week Assessment/Plan: Diagnoses and all orders for this visit: Arthralgia, unspecified joint - POCT SARS ANTIGEN NARDA/INFLUENZA A & B COMBINATION Chest congestion - POCT SARS ANTIGEN NARDA/INFLUENZA A & B COMBINATION Fever, unspecified fever cause - POCT SARS ANTIGEN NARDA/INFLUENZA A & B COMBINATION Other orders - azithromycin (ZITHROMAX) 250 MG Tablet; 2 tab(s) daily for 1 day, then 1 tab(s) daily for days 2-5. covid neg Flu neg Sx for 7 days Likely viral with secondary complication a week later Cont supportive care Rx ABT Pt to monitor sx If sx persist, pt to f/u and let me now Subjective: Mr. Bacilio Ramirez is a 76 y.o. male here today for above. Pt c/o URI sx Cough Nasal congestion Fever yesterday No SOB Body aches Fatigue Sx started a week ago Slightly better today but fever yesterday No GI c/o ROS: Review of Systems Constitutional: Positive for fever and malaise/fatigue. HENT: Positive for congestion. Respiratory: Positive for cough. Negative for shortness of breath. Gastrointestinal: Negative. VITAL SIGNS: BP Readings from Last 3 Encounters: 02/06/22 144/60 09/23/21 122/66 03/25/21 140/70 Wt Readings from Last 3 Encounters: 02/06/22 178 lb 14.4 oz (81.1 kg) 09/23/21 184 lb (83.5 kg) 03/25/21 179 lb (81.2 kg) Vitals: 02/06/22 0919 BP: 144/60 BP Location: Left Arm BP Position: Sitting BP Cuff Size: Regular Pulse: 65 Resp: 14 Temp: 97.9 ??F (36.6 ??C) TempSrc: Temporal SpO2: 98% Weight: 178 lb 14.4 oz (81.1 kg) Height: 5' 10 (1.778 m) Body mass index is 25.67 kg/m??. PHYSICAL EXAM: Physical Exam Vitals reviewed. HENT: Head: Normocephalic. Right Ear: Tympanic membrane normal. Left Ear: Tympanic membrane normal. Nose: Congestion present. Mouth/Throat: Mouth: Mucous membranes are moist. Pharynx: No oropharyngeal exudate or posterior oropharyngeal erythema. Eyes: Extraocular Movements: Extraocular movements intact. Cardiovascular: Rate and Rhythm: Regular rhythm. Heart sounds: Normal heart sounds. Pulmonary: Effort: Pulmonary effort is normal. Breath sounds: Normal breath sounds. Abdominal: Palpations: Abdomen is soft. Musculoskeletal: Cervical back: Neck supple. Skin: General: Skin is warm. Neurological: General: No focal deficit present. Mental Status: He is alert. Psychiatric: Mood and Affect: Mood normal. Labs/Studies Reviewed: Lab Results Component Value Date WBC 6.41 01/29/2016 HEMOGLOBIN 10.9 (L) 01/29/2016 HEMATOCRIT 31.8 (L) 01/29/2016 PLATELETCNT 206 01/29/2016 MCV 87.4 01/29/2016 Lab Results Component Value Date SODIUM 139 09/24/2021 POTASSIUM 4.1 09/24/2021 CHLORIDE 105 09/24/2021 CO2VEN 24 09/24/2021 ANIONGAP 14.1 09/24/2021 GLUCOSE 103 (H) 09/24/2021 BUN 27 (H) 09/24/2021 CREATININE 1.16 09/24/2021 BCRATIO8 23 (H) 09/24/2021 TOTALPROTEIN 7.1 09/24/2021 ALBUMIN 4.7 09/24/2021 CALCIUM 9.4 09/24/2021 TBIL 0.4 09/24/2021 SGOTAST 35 09/24/2021 SGPTALT 30 09/24/2021 ALKALINEPHO 70 09/24/2021 GFRNA >60 09/24/2021 GFRA >60 09/24/2021 No results found for: TSH Lab Results Component Value Date HGBA1C 6.5 (H) 09/24/2021 Lab Results Component Value Date CHOLESTEROL 172 09/24/2021 TRIGLYCRIDES 288 (H) 09/24/2021 HDLCHOLESTE 47.4 09/24/2021 LDL 67 09/24/2021 No results found for: PSASCREEN, PSA, PSAFREE, PSAPCNTFREE, PSATOTAL @MAMMOFINDINGS@ No results found. Recent Procedure Details No resulted procedures found. FOLLOWUP: Follow-up Information Return in about 1 week (around 02/13/2022) for worsening symptoms or if symptoms fail to improve. LOS Today OFFICE/OP EST LVL 3 LOW MDM/20-29 MIN Past medical, surgical, social and family history has been reviewed and updated as necessary. Medications and allergies has been reviewed and updated. I discussed all new medications and potential side effects or risks associated with them. Patient is to contact our office with any concerns. Patient instructions and educational materials were given to the patient. Patient (or patient guest services representative) demonstrates verbal understanding of instructions given. Patient should follow up with their PCP for general health maintenance needs. Patient should contact our office if their problems persist or call 911/go the to ER if issues become more persistent. If any referrals have been made, patient should contact our office with in 3-5 days if they have not heard anything from our referral team or the referring physician. CAL SALES REPRESENTATIVE documented in this encounter Plan of Treatment Upcoming Encounters Date Type Department Care Team (Late st Contact Info) Description 04/25/2024 9:30 AM MEDICAL SALES REPRESENTATIVE Office Visit [facility] - Internal Medicine - [place] [address] [place] [id number] Jaylon Gudino MD [address] [place] [address] documented as of this encounter Procedures Procedure Name Priority Date/Time Associated Diagnosis Comments POCT SARS ANTIGEN NARDA/INFLUENZA A & B COMBINATION Routine 02/06/2022 8:50 AM MEDICAL SALES REPRESENTATIVE Arthralgia, unspecified joint Chest congestion Fever, unspecified fever cause documented in this encounter Results * POCT SARS ANTIGEN NARDA/INFLUENZA A & B COMBINATION (02/06/2022 8:50 AM MEDICAL SALES REPRESENTATIVE) POC SARS ANTIGEN NARDA Negative Negative POC SARS ANTIGEN NARDA CONTROL Bell Attendant Pass Rapid Influenza A PRESUMPTIVE NEGATIVE FOR THE PRESENCE OF INFLUENZA A ANTIGEN PRESUMPTIVE NEGATIVE FOR THE PRESENCE OF INFLUENZA A ANTIGEN, INDETERMINATE Rapid Influenza B PRESUMPTIVE NEGATIVE FOR THE PRESENCE OF INFLUENZA B ANTIGEN PRESUMPTIVE NEGATIVE FOR THE PRESENCE OF INFLUENZA B ANTIGEN, INDETERMINATE POC INFLUENZA CONTROL Bell Attendant Pass Swab NASAL STRUCTURE / Unknown 02/06/2022 8:50 AM MEDICAL SALES REPRESENTATIVE Claudia Sevilla PAC POINT OF CARE [facility] (MANUAL) Final Result documented in this encounter Visit Diagnoses Diagnosis Arthralgia, unspecified joint- Primary Chest congestion Other symptoms involving respiratory system and chest Fever, unspecified fever cause documented in this encounter Additional Health Concerns Infection Onset Date Last Indicated Resolved Time COVID - 19 02/06/2022 02/06/2022 02/16/2022 12:1 6 AM MEDICAL SALES REPRESENTATIVE Assessment Noted Time PHQ-9 Depression Total Score: 0 04/17/19 21 9:00 AM MEDICAL SALES REPRESENTATIVE documented as of this encounter Care Teams Flight Manager Relationship Specialty Start Date End Date Jaylon Gudino MD [address] [place] [address] PCP - General Internal Medicine 01/16/16 documented as of this encounter
--- OUTSIDE RECORDS SUMMARY | 2024-03-03 11:31 | XMS_ITS | Encounter Summary ---
Author Organization [facility] Address [address] [place] [address] Phone Care Team Providers Care Health Insurance Adjuster Name Role Phone Jaylon Gudino MD Primary Care Provider Reason for Visit * Reason Comments Medication Refill Encounter Details Date Type Department Care Team (Late st Contact Info) Description 12/12/2021 Refill [facility] - Internal Medicine - [place] [address] [place] [id number] Jaylon Gudino MD [address] [place] [address] Medication Refill Social History Tobacco Use Types [...] suspected to have Coronavirus/COVID-19? No / Unsure 12/10/2021 1:32 PM CDT documented as of this encounter Miscellaneous Notes * Telephone Encounter - Keysha Loya RN - 12/13/2021 6:37 AM CDT Medication(s) refilled and signed per [facility] Chronic Medication Refill Standing Order for Pediatricand Adult Patients. Requested Prescriptions Pending Prescriptions Disp Refills ??? amLODIPine (NORVASC) 5 MG Tablet [Pharmacy Med Name: amLODIPine Besylate 5 MG Oral Tablet] 180 Tablet 0 Sig: Take 1 tablet by mouth twice daily Calcium-Channel Blockers Protocol Passed - 12/12/2021 7:52 PM Passed - BP on record in the past year Clinician-entered: BP Readings from Last 3 Encounters: 09/23/21 122/66 03/25/21 140/70 12/17/20 150/72 Patient-entered: No data recorded Passed - Visit with relevant provider in past 12 months or upcoming 90 days Recent Visits Date Type Provider Dept 09/23/21 Office Visit Jaylon Gudino MD [facility] 03/25/21 Office Visit Jaylon Gudino MD [facility] 12/17/20 Office Visit Jaylon Gudino MD [facility] Showing recent visits within past 365 days and meeting all other requirements Future Appointments No visits were found meeting these conditions. Showing future appointments within next 90 days and meeting all other requirements ??? valsartan (DIOVAN) 160 MG Tablet [Pharmacy Med Name: Valsartan 160 MG Oral Tablet] 90 Tablet 0 Sig: Take 1 tablet by mouth once daily ARB Protocol Passed - 12/12/2021 7:52 PM Passed - Serum potassium on record in past 12 months POTASSIUM Date Value Ref Range Status 09/24/2021 4.1 3.5 - 5.1 mmol/L Final Passed - BP on record in the past year Clinician-entered: BP Readings from Last 3 Encounters: 09/23/21 122/66 03/25/21 140/70 12/17/20 150/72 Patient-entered: No data recorded Passed - Visit with relevant provider in past year or upcoming 90 days Recent Visits Date Type Provider Dept 09/23/21 Office Visit Jaylon Gudino MD [facility] [place] 03/25/21 Office Visit Jaylon Gudino MD [facility] [place] 12/17/20 Office Visit Jaylon Gudino MD [facility] [place] Showing recent visits within past 365 days and meeting all other requirements Future Appointments No visits were found meeting these conditions. Showing future appointments within next 90 days and meeting all other requirements Passed - GFR on record in past 12 months GFR, EST. NONAFRICAN Date Value Ref Range Status 09/24/2021 >60 >=60 Final documented in this encounter Plan of Treatment Upcoming Encounters Date Type Department Care Team (Late st Contact Info) Description 04/25/2024 9:30 AM FAST FOOD CREW LEAD Office Visit [facility] - Internal Medicine [place] [address] [place] [address] Jaylon Gudino MD [address] [place] [address] documented as of this encounter Visit Diagnoses Not on filedocumented in this encounter Additional Health Concerns Assessment Noted Time PHQ-9 Depression Total Score: 0 04/17/19 21 9:00 AM FAST FOOD CREW LEAD documented as of this encounter Care Teams Health Insurance Adjuster Relationship Specialty Start Date End Date Jaylon Gudino MD [address] [place] [address] PCP - General Internal Medicine 01/16/16 documented as of this encounter
--- OUTSIDE RECORDS SUMMARY | 2024-03-03 11:31 | XMS_ITS | Encounter Summary ---
Author Organization [facility] Care Team Providers Care Automotive Parts Counter Associate Name Role Phone Jaylon Gudino MD Primary Care Provider [phone] Encounter Details Date Type Department Care Team (Latest Contact Info) Description 03/31/2022 Travel Social History Tobacco Use Types Packs/Day [...] Coronavirus/COVID-19? No / Unsure 03/31/2022 9:43 AM VEGETABLE WASHER documented as of this encounter Functional Status * Question Answer Date of Assessment Author Little interest or pleasure in doing things Not at all 03/31/2022 10:00 AM Sang Hollis CMA Feeling down, depressed, or hopeless Not at all 03/31/2022 10:00 AM India Hollis CMA * Over the past 2 weeks, how often have you been bothered by any of the following problems? Question Answer Date of Assessment Author Patient Health Questionnaire -2 Score 0 03/31/2022 10:00 AM VEGETABLE WASHER India Terrell CMA documented as of this encounter Plan of Treatment Upcoming Encounters Date Type Department Care Team (Late st Contact Info) Description 04/25/2024 9:30 AM VEGETABLE WASHER Office Visit [facility] - Internal Medicine [place] [address] [place] [address] Jalyon Gudino MD [address] [place] [address] documented as of this encounter Visit Diagnoses Not on filedocumented in this encounter Additional Health Concerns Assessment Noted Time PHQ-9 Depression Total Score: 0 04/17/19 21 9:00 AM VEGETABLE WASHER documented as of this encounter Care Teams Automotive Parts Counter Associate Relationship Specialty Start Date End Date Jaylon Gudino MD [address] [place] [address] PCP - General Internal Medicine 01/16/16 documented as of this encounter
--- OUTSIDE RECORDS SUMMARY | 2024-03-03 11:31 | XMS_ITS | Encounter Summary ---
Author Organization [facility] Address [address] [place] [address] Phone Care Team Providers Care Solar Maintenance Technician Name Role Phone Jaylon Gudino MD Primary Care Provider [phone] Reason for Visit * Reason Comments Hypertension 6 mo f/u Ear Fullness Both ears Encounter Details Date Type Department Care Team (Late st Contact Info) Description 03/31/2022 10:00 AM TEA AND SPICE SUPERVISOR Office Visit [facility] - Internal Medicine - [place] [address] [place] [address] Jaylon Gudino MD [address] [place] [address] Essential hypertension, benign (Primary Dx); Chronic fatigue; Mixed hyperlipidemia; Encounter for immunization Discharge Disposition: Discharged to home or Selfcare Social History Tobacco Use Types Packs/Day Years Used Date Smoking Tobacco: Former Cigarettes 1 10 Smokeless Tobacco: Never Tobacco Cessation:Counseling Given: Not [...] Coronavirus/COVID-19? No / Unsure 03/31/2022 9:43 AM TEA AND SPICE SUPERVISOR documented as of this encounter Last Filed Vital Signs Vital Sign Reading Time Taken Comments Blood Pressure 136/60 03/31/2022 10:00 AM TEA AND SPICE SUPERVISOR Pulse 58 03/31/2022 10:00 AM TEA AND SPICE SUPERVISOR Temperature 36.6 ??C (97.8 ??F) 03/31/2022 10:[address] Respiratory Rate - - Oxygen Saturation 97% 03/31/2022 10:00 AM TEA AND SPICE SUPERVISOR Inhaled Oxygen Concentration - - Weight 81.6 kg (180 lb) 03/31/2022 10:00 AM TEA AND SPICE SUPERVISOR Height 177.8 cm (5' 10 ) 03/31/2022 10:00 AM TEA AND SPICE SUPERVISOR Body Mass Index 25.83 03/31/2022 10:00 AM TEA AND SPICE SUPERVISOR documented in this encounter Functional Status * Question Answer Date of Assessment Author Little interest or pleasure in doing things Not at all 03/31/2022 10:00 AM TEA AND SPICE SUPERVISOR Sang Terrell CMA Feeling down, depressed, or hopeless Not at all 03/31/2022 10:00 AM TEA AND SPICE SUPERVISOR India Terrell CMA * Over the past 2 weeks, how often have you been bothered by any of the following problems? Question Answer Date of Assessment Author Patient Health Questionnaire -2 Score 0 03/31/2022 10:00 AM TEA AND SPICE SUPERVISOR India Terrell CMA documented as of this encounter Progress Notes * India Terrell CMA - 03/31/2022 10:00 AM CST Bacilio Ramirez, 76 y.o., male is here for Hypertension (6 mo f/u) and Ear Fullness (Both ears) Medication Refills: Patient reports/denies need for medication refills. Orders Pended: no Requested Prescriptions No prescriptions requested or ordered in this encounter Home Medications Medication Sig Start Date End Date Taking? Authorizing Provider amLODIPine (NORVASC) 5 MG Tablet Take 1 tablet by mouth twice daily 03/24/22 Yes Jaylon Gudino MD hydrOXYzine (ATARAX) 25 MG Tablet TAKE 1 TABLET BY MOUTH EVERY 6 HOURS NEEDED FOR ITCHING 04/25/21 Jaylon Gudino MD pravastatin (PRAVACHOL) 40 MG Tablet TAKE 2 TABLETS BY MOUTH NIGHTLY 01/20/22 Yes Jaylon Gudino MD RABEprazole (ACIPHEX) 20 MG Tablet Delayed Response TAKE 2 TABLETS BY MOUTH ONCE DAILY TAKE 30-60 MINUTES BEFORE SUPPER 03/13/22 Yes Jaylon Gudino MD valsartan (DIOVAN) 160 MG Tablet Take 1 tablet by mouth once daily 03/24/22 Yes Jaylon Gudino MD There are no [...] been addressed with the patient today: Smoking and Depression AND SPICE SUPERVISOR * India Terrell CMA - 03/31/2022 10:00 AM CST Bacilio presents today for immunization/injection of Prevnar 20, ordered by Dr. Jaylon Gudino on 03/31/2022 was administered without incident. Patient tolerated it well. See immunizations/injections activity. AND SPICE SUPERVISOR * India Terrell CMA - 03/31/2022 10:00 AM CST Bacilio presents for lab draw per order of Dr. Jaylon Gudino dated 03/31/2022. Specimen collected from left antecubital without incident. AND SPICE SUPERVISOR * Jaylon Gudino MD - 03/31/2022 10:00 AM CST PROGRESS NOTE [facility] - INTERNAL MEDICINE [address] [place] [address] PHONE: [phone] FAX: [phone] 03/31/2022 NAME: Bacilio Ramirez, : 1945, Assessment ASSESSMENT & PLAN: Return in about 6 months (around 09/28/2022) for htn. Diagnoses and all orders for this visit: Essential hypertension, benign Comments: Controlled. 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 Will check CBC, B12 level, TSH Orders: - THYROID STIMULATING HORMONE (TSH); Future - VITAMIN B12; Future - THYROID STIMULATING HORMONE (TSH) - VITAMIN B12 Mixed hyperlipidemia Comments: Continue pravastatin and low-cholesterol diet Orders: - CMP (COMPREHENSIVE METABOLIC PANEL); Future - LIPID PANEL; Future - CMP (COMPREHENSIVE METABOLIC PANEL) - LIPID PANEL Encounter for immunization Comments: Will give Prevnar 20 vaccine today Orders: - PNEUMOCOCCAL CONJUGATE VACCINE (PCV20) IM - PCV-20 IMMUNIZATION QUESTIONS Follow-up in 6 months, sooner if needed Chief Complaint Patient presents with ??? Hypertension 6 mo f/u ??? Ear Fullness Both ears HPI Patient is here for follow-up for hypertension and other medical problems. Also complains of fullness in both ears. Also complains of feeling tired since had COVID infection November 21. No chest pain or palpitation. No shortness of breath. Tolerating medications well. ROS Review of systems was negative, except as documented in HPI PHYSICAL EXAM VITALS: Wt Readings from Last 3 Encounters: 03/31/22 180 lb (81.6 kg) 02/06/22 178 lb 14.4 oz (81.1 kg) 09/23/21 184 lb (83.5 kg) Temp Readings from Last 3 Encounters: 03/31/22 97.8 ??F (36.6 ??C) (Temporal) 02/06/22 97.9 ??F (36.6 ??C) (Temporal) 09/23/21 97.3 ??F (36.3 ??C) (Temporal) BP Readings from Last 3 Encounters: 03/31/22 136/60 02/06/22 144/60 09/23/21 122/66 Pulse Readings from Last 3 Encounters: 03/31/22 58 02/06/22 65 09/23/21 84 Physical Exam Vitals and nursing note reviewed. [...] ??? amLODIPine (NORVASC) 5 MG Tablet ??? hydrOXYzine (ATARAX) 25 MG Tablet ??? pravastatin (PRAVACHOL) 40 MG Tablet [...] may have occurred. By: Jaylon Gudino MD 03/31/2022 10:45 AM TEA AND SPICE SUPERVISOR AND SPICE SUPERVISOR documented in this encounter Plan of Treatment Upcoming Encounters Date Type Department Care Team (Late st Contact Info) Description 04/25/2024 9:30 AM TEA AND SPICE SUPERVISOR Office Visit [facility] - Internal Medicine - [place] [address] [place] [address] Jaylon Gudino MD [address] [place] [address] documented as of this encounter Procedures Procedure Name Priority Date/Time Associated Diagnosis Comments VITAMIN B12 Routine 03/31/2022 10:33 AM TEA AND SPICE SUPERVISOR Chronic fatigue THYROID STIMULATING HORMONE (TSH) Routine 03/31/2022 10:33 AM TEA AND SPICE SUPERVISOR Chronic fatigue LIPID PANEL Routine 03/31/2022 10:33 AM TEA AND SPICE SUPERVISOR Essential hypertension, benign Mixed hyperlipidemia CMP (COMPREHENSIVE METABOLIC PANEL) Routine 03/31/2022 10:33 AM TEA AND SPICE SUPERVISOR Essential hypertension, benign Mixed hyperlipidemia documented in this encounter Results * VITAMIN B12 (03/31/2022 10:33 AM TEA AND SPICE SUPERVISOR) VITAMIN B12 780 243 - 894 pg/mL 03/31/2022 3:52 PM TEA AND SPICE SUPERVISOR [facility] Blood Venipuncture / Unknown 03/31/2022 10:33 AM TEA AND SPICE SUPERVISOR 03/31/2022 10:33 AM TEA AND SPICE SUPERVISOR us Jaylon Gudino MD CHEMISTRY ORDERABLES Final Result Performing Organization Address [facility]/ZIP Co de Phone Number [facility] [place] [address] * (ABNORMAL) LIPID PANEL (03/31/2022 10:33 AM TEA AND SPICE SUPERVISOR) CHOLESTEROL 181 <=200 mg/dL 03/31/2022 3:42 PM TEA AND SPICE SUPERVISOR [facility] TRIGLYCERIDES 188(H) <150 mg/dL 03/31/2022 3:42 PM TEA AND SPICE SUPERVISOR [facility] HDL CHOLESTEROL 68.2 >40 mg/dL 3:42 PM TEA AND SPICE SUPERVISOR [facility] LDL 75 5 - 130 mg/dL 03/31/2022 3:42 PM TEA AND SPICE SUPERVISOR [facility] VLDL 38 5 - 55 mg/dL 03/31/2022 3:42 PM TEA AND SPICE SUPERVISOR [facility] CHOL/HDL RATIO 2.7 0.0 - 4.4 03/31/2022 3:42 PM TEA AND SPICE SUPERVISOR [facility] NON-HDL CHOLESTEROL 112.8 <130 mg/dL 03/31/2022 3:42 PM TEA AND SPICE SUPERVISOR [facility] Blood Venipuncture / Unknown 03/31/2022 10:33 AM TEA AND SPICE SUPERVISOR 03/31/2022 10:33 AM TEA AND SPICE SUPERVISOR Jaylon Gudino MD CHEMISTRY ORDERABLES Final Result Performing Organization Address [facility]/ZIP Co de Phone Number [facility] [place] [address] * (ABNORMAL) THYROID STIMULATING HORMONE (TSH) (03/31/2022 10:33 AM TEA AND SPICE SUPERVISOR) TSH 5.400(H) 0.270 - 4.200 mIU/L 03/31/2022 3:42 PM TEA AND SPICE SUPERVISOR [facility] Blood Venipuncture / Unknown 03/31/2022 10:33 AM TEA AND SPICE SUPERVISOR 03/31/2022 10:33 AM TEA AND SPICE SUPERVISOR us Jaylon Gudino MD CHEMISTRY ORDERABLES Final Result [facility] [place] [address] * (ABNORMAL) CMP (COMPREHENSIVE METABOLIC PANEL) (03/31/2022 10:33 AM TEA AND SPICE SUPERVISOR) SODIUM 137 136 - 144 mmol/L 03/31/2022 3:42 PM TEA AND SPICE SUPERVISOR [facility] POTASSIUM 3.9 3.5 - 5.1 mmol/L 03/31/2022 3:42 PM [facility] CHLORIDE 100 100 - 110 mmol/L 03/31/2022 3:42 PM [facility] CO2, VENOUS 25 22 - 32 mmol/L 03/31/2022 3:42 PM [facility] ANION GAP 15.9 8.0 - 20.0 mmol/L 03/31/2022 3:42 PM [facility] GLUCOSE 116(H) 70 - 99 mg/dL 03/31/2022 3:42 PM [facility] BUN 24(H) 8 - 23 mg/dL 03/31/2022 3:42 PM [facility] CREATININE, BLOOD 1.25 0.80 - 1.30 mg/dL 03/31/2022 3:42 PM [facility] BUN/CREATININE RATIO 19 12 - 20 ratio 03/31/2022 3:42 PM [facility] TOTAL PROTEIN 7.2 6.0 - 8.3 g/dL 03/31/2022 3:42 PM [facility] ALBUMIN 4.7 3.5 - 5.2 g/dL 03/31/2022 3:42 PM [facility] Comment: The colormetric methods used for the determination of Albumin may lead to falsely elevated test results in patients suffering from renal failure or insufficiency due to interference with other proteins. A/G RATIO 1.9 1.0 - 2.0 03/31/2022 3:42 PM [facility] CALCIUM 9.8 8.9 - 10.3 mg/dL 03/31/2022 3:42 PM TEA AND SPICE SUPERVISOR [facility] T BILI 0.4 <=1.2 mg/dL 03/31/2022 3:42 PM TEA AND SPICE SUPERVISOR [facility] SGOT (AST) 35 <=40 U/L 03/31/2022 3:42 PM TEA AND SPICE SUPERVISOR [facility] SGPT (ALT) 26 <=41 U/L 03/31/2022 3:42 PM TEA AND SPICE SUPERVISOR [facility] ALKALINE PHOSPHATASE 60 40 - 130 U/L 03/31/2022 3:42 PM [facility] IS THE PATIENT REQUIRED TO BE FASTING? No 03/31/2022 3:42 PM [facility] GFR, ESTIMATED 59(L) >=60 03/31/2022 3:42 PM [facility] Comment: Creatinine Clearance is the preferred criteria for selecting drug dose adjustments in renally impaired patients. ??The GFR is provided as additional pertinent clinical information. GFR is reported in mL/min/1.73 sq m. Calculation based on the Chronic Kidney Disease Epidemiology Collaboration (CKD- EPI) equation refit without adjustment for race. GFR, EST. >60 >=60 023 3:42 PM [facility] GFR, EST. NONAFRICAN 56(L) >=60 03/31/2022 3:42 PM [facility] Blood Venipuncture / Unknown 03/31/2022 10:33 AM TEA AND SPICE SUPERVISOR 03/31/2022 10:33 AM TEA AND SPICE SUPERVISOR us Jaylon Gudino MD CHEMISTRY ORDERABLES Final Result [facility] [place] [address] documented in this encounter Visit Diagnoses Diagnosis Essential hypertension, benign- Primary Chronic fatigue Other malaise and fatigue Mixed hyperlipidemia Encounter for immunization Need for other specified prophylactic vaccination against single bacterial disease documented in this encounter Additional Health Concerns Assessment Noted Time PHQ-9 Depression Total Score: 0 04/17/19 21 9:00 AM TEA AND SPICE SUPERVISOR documented as of this encounter Care Teams Solar Maintenance Technician Relationship Specialty Start Date End Date Jaylon Gudino MD [address] [place] [address] PCP - General Internal Medicine 01/16/16 documented as of this encounter
--- OUTSIDE RECORDS SUMMARY | 2024-03-03 11:31 | XMS_ITS | Encounter Summary ---
Author Organization [facility] Address [address] [place] [address] Phone Care Team Providers Care Strength And Conditioning Coach Name Role Phone Jaylon Gudino MD Primary Care Provider Reason for Visit * Reason Comments Medication Refill Encounter Details Date Type Department Care Team (Late st Contact Info) Description 03/23/[address] [facility] - Internal Medicine - [place] [address] [place] [phone] Jaylon Gudino MD [address] [facility] [place] [address] Medication Refill Social History Tobacco Use Types [...] Telephone Encounter - Luzma Liu RN - 03/24/2022 8:28 AM CST Medication(s) [facility] and [facility] Medication Refill Standing Order for Pediatricand Adult Patients. Requested Prescriptions Pending Prescriptions Disp Refills ??? amLODIPine (NORVASC) 5 MG Tablet [Pharmacy Med Name: amLODIPine Besylate 5 MG Oral Tablet] 180 Tablet 0 Sig: Take 1 tablet by mouth twice daily Calcium-Channel Blockers Protocol Passed - 03/23/2022 4:11 PM Passed - BP on record in the past year Clinician-entered: BP Readings from Last 3 Encounters: 02/06/22 144/60 09/23/21 122/66 03/25/21 140/70 Patient-entered: No data recorded Passed - Visit with relevant provider in past 12 months or upcoming 90 days Recent Visits Date Type Provider Dept 02/06/22 Office Visit Claudia Sevilla PAC [facility] [place] 09/23/21 Office Visit Jaylon Gudino MD [facility] [place] 03/25/21 [facility] [place] Show[facility] recent visits within past 365 days and meeting all other requirements Future Appointments Date Type Provider Dept 03/31/22 Appointment Jaylon Gudino MD [facility] [place] Showing future appointments within next 90 days and meeting all other requirements ??? valsartan (DIOVAN) 160 MG Tablet [Pharmacy Med Name: Valsartan 160 MG Oral Tablet] 90 Tablet 0 Sig: Take 1 tablet by mouth once daily ARB Protocol Passed - 03/23/2022 4:11 PM Passed - Serum potassium on record in past 12 months POTASSIUM Date Value Ref Range Status 09/24/2021 4.1 3.5 - 5.1 mmol/L Final Passed - BP on record in the past year Clinician-entered: BP Readings from Last 3 Encounters: 02/06/22 144/60 09/23/21 122/66 03/25/21 140/70 Patient-entered: No data recorded Passed - Visit with relevant provider in past year or upcoming 90 days Recent Visits Date Type Provider Dept 02/06/22 Office Visit Claudia Sevilla PAC [facility] [place] 09/23/21 Office Visit [facility] [place] 03/25/21 [facility] [place] Show[place] recent visits within past 365 days and meeting all other requirements Future Appointments Date Type Provider Dept 03/31/22 Appointment [facility] [place] future appointments within next 90 days and meeting all other requirements Passed - GFR on record in past 12 months GFR, EST. NONAFRICAN Date Value Ref Range Status 09/24/2021 >60 >=60 Final NGER documented in this encounter Plan of Treatment Upcoming Encounters Date Type Department Care Team (Late st Contact Info) Description 04/25/2024 9:30 AM REHANGER [facility] Visit [facility] [address] [place] [address] Jaylon Gudino MD [address] [place] [place] [address] documented as of this encounter Visit Diagnoses Not on filedocumented in this encounter Additional Health Concerns Assessment Noted Time PHQ-9 Depression Total Score: 0 04/17/19 21 9:00 AM REHANGER documented as of this encounter Care Teams Strength And Conditioning Coach Relationship Specialty Start Date End Date Jaylon Gudino MD [address] [place] [address] PCP - General Internal Medicine 01/16/16 documented as of this encounter
--- OUTSIDE RECORDS SUMMARY | 2024-03-03 11:31 | XMS_ITS | Encounter Summary ---
Author Organization [facility] Address [address] [place] [address] Phone Care Team Providers Care Printing Table Worker Name Role Phone Jaylon Gudino MD Primary Care Provider [phone] Reason for Visit * Reason Comments Medication Refill Encounter Details Date Type Department Care Team (Late st Contact Info) Description 01/17/2022 Refill [facility] - Internal Medicine - [place] [address] [place] [phone] Jaylon Gudino MD [address] [facility] [place] [address] Medication Refill Social History Tobacco Use Types [...] Telephone Encounter - Keysha Loya RN - 01/20/2022 8:13 AM CST Medication[facility] Refill Standing Order for Pediatricand Adult Patients. Requested Prescriptions Pending Prescriptions Disp Refills ??? pravastatin (PRAVACHOL) 40 MG Tablet [Pharmacy Med Name: Pravastatin Sodium 40 MG Oral Tablet] 180 Tablet 0 Sig: TAKE 2 TABLETS BY MOUTH NIGHTLY Hmg CoA Reductase Inhibitors Protocol Passed - 01/17/2022 8:20 PM Passed - Visit with relevant provider in past 12 months or upcoming 90 days Recent Visits Date Type Provider Dept 09/23/21 Office Visit Jaylon Gudino MD [facility] [place] 03/25/21 [facility] [place] [facility] recent visits within past 365 days and meeting all other requirements Future Appointments Date Type Provider Dept 03/31/22 Appointment Jaylon Gudino MD [facility] [place] future appointments within next 90 days and meeting all other requirements Passed - Lipid panel in past 12 months LDL Date Value Ref Range Status 09/24/2021 67 5 - 130 mg/dL Final 04/17/2020 52 0 - 130 mg/dL Final HDL CHOLESTEROL Date Value Ref Range Status 09/24/2021 47.4 >40 mg/dL Final CHOLESTEROL Date Value Ref Range Status 09/24/2021 172 <=200 mg/dL Final TRIGLYCERIDES Date Value Ref Range Status 09/24/2021 288 (H) <150 mg/dL Final VLDL Date Value Ref Range Status 09/24/2021 58 (H) 5 - 55 mg/dL Final CHOL/HDL RATIO Date Value Ref Range Status 09/24/2021 3.6 0.0 - 4.4 Final NON-HDL CHOLESTEROL Date Value Ref Range Status 09/24/2021 124.6 <130 mg/dL Final G ADULT LIBRARIAN documented in this encounter Plan of Treatment Upcoming Encounters Date Type Department Care Team (Late st Contact Info) Description 04/25/2024 9:30 AM YOUNG ADULT LIBRARIAN Office Visit [facility] - Internal Medicine - [place] [address] [place] [phone] Jaylon Gudino MD [address] [place] [address] documented as of this encounter Visit Diagnoses Not on filedocumented in this encounter Additional Health Concerns Assessment Noted Time PHQ-9 Depression Total Score: 0 04/17/19 21 9:00 AM YOUNG ADULT LIBRARIAN documented as of this encounter Care Teams Printing Table Worker Relationship Specialty Start Date End Date Jaylon Gudino MD [address] [place] [address] PCP - General Internal Medicine 01/16/16 documented as of this encounter
--- OUTSIDE RECORDS SUMMARY | 2024-03-03 11:31 | XMS_ITS | Encounter Summary ---
Author Organization [facility] Address [address] [place] [address] Phone Care Team Providers Care Station Chief Name Role Phone Jaylon Gudino MD Primary Care Provider Reason for Visit * Reason Comments Medication Refill Encounter Details Date Type Department Care Team (Late st Contact Info) Description 05/01/2022 Refill [facility] - [place] [address] [place] [phone] Jaylon Gudino MD [address] [place] [address] Medication Refill Social History Tobacco Use Types [...] Telephone Encounter - Luzma Liu RN - 05/02/2022 8:08 AM CST Medication([facility]) [facility] Refill Standing Order for Pediatricand Adult Patients. Requested Prescriptions Pending Prescriptions Disp Refills ??? pravastatin (PRAVACHOL) 40 MG Tablet [Pharmacy Med Name: Pravastatin Sodium 40 MG Oral Tablet] 180 Tablet 0 Sig: TAKE 2 TABLETS BY MOUTH NIGHTLY Hmg CoA Reductase Inhibitors Protocol Passed - 05/01/2022 7:18 PM Passed - Visit with relevant provider in past 12 months or upcoming 90 days Recent Visits Date Type Provider Dept 03/31/22 Office Visit Jaylon Gudino MD [facility] [place] 02/06/22 Office Visit Claudia Sevilla PAC [facility] [place] 09/23/21 Office Visit Jaylon Gudino MD [facility] [place] Showing recent visits within past 365 days [...] Range Status 03/31/2022 112.8 <130 mg/dL Final LLATE LAW CLERK documented in this encounter Plan of Treatment Upcoming Encounters Date Type Department Care Team (Late st Contact Info) Description 04/25/2024 9:30 AM APPELLATE LAW CLERK [facility] - Internal Medicine - [place] [address] [place] [address] Jaylon Gudino MD [address] [place] [address] documented as of this encounter Visit Diagnoses Not on filedocumented in this encounter Additional Health Concerns Assessment Noted Time PHQ-9 Depression Total Score: 0 04/17/19 21 9:00 AM APPELLATE LAW CLERK documented as of this encounter Care Teams Station Chief Relationship Specialty Start Date End Date Jaylon Gudino MD [address] [place] [address] PCP - General Internal Medicine 01/16/16 documented as of this encounter
--- OUTSIDE RECORDS SUMMARY | 2024-03-03 11:31 | XMS_ITS | Encounter Summary ---
Author Organization [facility] Address [address] [place] [address] Phone Care Team Providers Care Manager Social Responsibility Name Role Phone Jaylon Gudino MD Primary Care Provider [phone] Reason for Visit * Reason Comments Medication Refill Encounter Details Date Type Department Care Team (Late st Contact Info) Description 03/12/2022 Refill [facility] Medical Group - Internal Medicine - [place] [address] [place] [phone] Jaylon Gudino MD [address] [place] [address] Medication Refill Social History Tobacco Use Types [...] Telephone Encounter - Luzma Liu RN - 03/13/2022 8:07 AM CST Medication(s) refilled and signed per [facility] Chronic Medication Refill Standing Order for Pediatricand Adult Patients. Requested Prescriptions Pending Prescriptions Disp Refills ??? RABEprazole (ACIPHEX) 20 MG Tablet Delayed Response [Pharmacy Med Name: RABEprazole Sodium 20 MG Oral Tablet Delayed Release] 90 Tablet 0 Sig: TAKE 2 TABLETS BY MOUTH ONCE DAILY TAKE 30-60 MINUTES BEFORE SUPPER Proton Pump Inhibitors Protocol Passed - 03/12/2022 7:41 PM Passed - Visit with relevant provider in past 12 months or upcoming 90 days Recent Visits Date Type Provider Dept 02/06/22 Office Visit Claudia Sevilla PAC [facility] [place] 09/23/21 Office Visit Jaylon Gudino MD [facility] [place] 03/25/21 Office Visit Jaylon Gudino MD [facility] [place] Showing recent visits within past 365 days and meeting all other requirements Future Appointments Date Type Provider Dept 03/31/22 Appointment Jaylon Gudino MD [facility] [place] Showing future appointments within next 90 days and meeting all other requirements E WATER TREATMENT PLANT OPERATOR documented in this encounter Plan of Treatment Upcoming Encounters Date Type Department Care Team (Late st Contact Info) Description 04/25/2024 9:30 AM WASTE WATER TREATMENT PLANT OPERATOR [facility] Visit [facility] [address] [place] [address] Jaylon Gudino MD [address] [place] [address] documented as of this encounter Visit Diagnoses Not on filedocumented in this encounter Additional Health Concerns Assessment Noted Time PHQ-9 Depression Total Score: 0 04/17/19 21 9:00 AM WASTE WATER TREATMENT PLANT OPERATOR documented as of this encounter Care Teams Manager Social Responsibility Relationship Specialty Start Date End Date Jaylon Gudino MD [address] [place] [address] PCP - General Internal Medicine 11/16/16 documented as of this encounter
--- OUTSIDE RECORDS SUMMARY | 2024-03-03 11:32 | XMS_ITS | Encounter Summary ---
Author Organization [facility] Address [address] [place] [address] Phone Care Team Providers Care Stitchdown Thread Laster Name Role Phone Jaylon Gudino MD Primary Care Provider Encounter Details Date Type Department Care Team (Late st Contact Info) Description 09/24/2021 8:00 AM CDT Lab [facility] Medical Group - Internal Medicine - [place] [address] [place] [address] [facility] Essential hypertension, benign; Mixed hyperlipidemia; Hyperglycemia Discharge Disposition: Discharged to home or [...] suspected to have Coronavirus/COVID-19? No / Unsure 09/23/2021 9:44 AM CDT documented as of this encounter Progress Notes * Lexii Chua RMA - 09/24/2021 8:00 AM CDT Bacilio presents for lab draw per order of Dr. Gudino dated 09/24/2021. Specimen collected from left antecubital without incident. documented in this encounter Plan of Treatment Upcoming Encounters Date Type Department Care Team (Late st Contact Info) Description 04/25/2024 9:30 AM VENDING MACHINE ATTENDANT Office Visit [facility] - [place] [address] [place] [address] Jaylon Gudino MD [address] [place] [address] documented as of this encounter Procedures Procedure Name Priority Date/Time Associated Diagnosis Comments HEMOGLOBIN A1C W/ ESTIMATED GLUCOSE Routine 09/24/2021 7:44 AM CDT Hyperglycemia LIPID PANEL Routine 09/24/2021 7:44 AM CDT Essential hypertension, benign Mixed hyperlipidemia CMP (COMPREHENSIVE METABOLIC PANEL) Routine 09/24/2021 7:44 AM CDT Essential hypertension, benign Mixed hyperlipidemia documented in this encounter Results * (ABNORMAL) HEMOGLOBIN A1C W/ ESTIMATED GLUCOSE (09/24/2021 7:44 AM CDT) HGB-A1C 6.5(H) 4.0 - 6.0 % 09/24/2021 3:36 PM CDT [facility] Est Average Glucose 139.9 mg/dL 09/24/2021 3:36 PM CDT [facility] Blood Venipuncture / Unknown 09/24/2021 7:44 AM CDT 09/24/2021 7:44 AM CDT Narrative [facility] - 09/24/2021 3:36 PM CDT HEMOGLOBIN A1C: DIABETIC PATIENTS: WELL-CONTROLLED: ?? 6.2 - 7.0 INTERMEDIATE WELL-CONTROLLED: ??7.0 - 9.0 POORLY-CONTROLLED: ??>9.0 Jaylon Gudino MD CHEMISTRY ORDERABLES Final Result Performing Organization Address [facility] Co de Phone Number [facility] [place] [address] * (ABNORMAL) LIPID PANEL (09/24/2021 7:44 AM CDT) CHOLESTEROL 172 <=200 mg/dL 09/24/2021 3:31 PM CDT [facility] TRIGLYCERIDES 288(H) <150 mg/dL 09/24/2021 3:31 PM CDT [facility] HDL CHOLESTEROL 47.4 >40 mg/dL 3:31 PM CDT [facility] LDL 67 5 - 130 mg/dL 09/24/2021 3:31 PM CDT [facility] VLDL 58(H) 5 - 55 mg/dL 09/24/2021 3:31 PM CDT [facility] CHOL/HDL RATIO 3.6 0.0 - 4.4 09/24/2021 3:31 PM CDT [facility] NON-HDL CHOLESTEROL 124.6 <130 mg/dL 09/24/2021 3:31 PM CDT [facility] Blood Venipuncture / Unknown 09/24/2021 7:44 AM CDT 09/24/2021 7:44 AM CDT Jaylon Gudino MD CHEMISTRY ORDERABLES Final Result Performing Organization Address [facility]/ZIP Co de Phone Number [facility] [place] [address] * (ABNORMAL) CMP (COMPREHENSIVE METABOLIC PANEL) (09/24/2021 7:44 AM CDT) SODIUM 139 136 - 144 mmol/L 09/24/2021 3:31 PM CDT [facility] POTASSIUM 4.1 3.5 - 5.1 mmol/L 09/24/2021 3:31 PM T [facility] CHLORIDE 105 100 - 110 mmol/L 09/24/2021 3:31 PM T [facility] CO2, VENOUS 24 22 - 32 mmol/L 09/24/2021 3:31 PM T [facility] ANION GAP 14.1 8.0 - 20.0 mmol/L 09/24/2021 3:31 PM T [facility] GLUCOSE 103(H) 70 - 99 mg/dL 09/24/2021 3:31 PM T [facility] BUN 27(H) 8 - 23 mg/dL 09/24/2021 3:31 PM [facility] CREATININE, BLOOD 1.16 0.80 - 1.30 mg/dL 09/24/2021 3:31 PM [facility] BUN/CREATININE RATIO 23(H) 12 - 20 ratio 09/24/2021 3:31 PM [facility] TOTAL PROTEIN 7.1 6.0 - 8.3 g/dL 09/24/2021 3:31 PM [facility] ALBUMIN 4.7 3.5 - 5.2 g/dL 09/24/2021 3:31 PM [facility] Comment: The colormetric methods used for the determination of Albumin may lead to falsely elevated test results in patients suffering from renal failure or insufficiency due to interference with other proteins. A/G RATIO 2.0 1.0 - 2.0 09/24/2021 3:31 PM T [facility] CALCIUM 9.4 8.9 - 10.3 mg/dL 09/24/2021 3:31 PM [facility] T BILI 0.4 <=1.2 mg/dL 09/24/2021 3:31 PM [facility] SGOT (AST) 35 <=40 U/L 09/24/2021 3:31 PM CDT [facility] SGPT (ALT) 30 <=41 U/L 09/24/2021 3:31 PM CDT [facility] ALKALINE PHOSPHATASE 70 40 - 130 U/L 09/24/2021 3:31 PM CDT [facility] IS THE PATIENT REQUIRED TO BE FASTING? No 09/24/2021 3:31 PM CDT [facility] GFR, EST. NONAFRICAN >60 >=60 09/24/2021 3:31 PM CDT [facility] GFR, EST. >60 >=60 022 3:31 PM CDT [facility] Blood Venipuncture / Unknown 09/24/2021 7:44 AM CDT 09/24/2021 7:44 AM CDT Jaylon Gudino MD CHEMISTRY ORDERABLES Final Result Performing Organization Address City/State/[facility] Co de Phone Number [facility] [place] [address] documented in this encounter Visit Diagnoses Diagnosis Essential hypertension, benign Mixed hyperlipidemia Hyperglycemia Other abnormal glucose documented in this encounter Additional Health Concerns Assessment Noted Time PHQ-9 Depression Total Score: 0 04/17/19 21 9:00 AM VENDING MACHINE ATTENDANT documented as of this encounter Care Teams Stitchdown Thread Laster Relationship Specialty Start Date End Date Jaylon Gudino MD [address] [place] [address] PCP - General Internal Medicine 01/16/16 documented as of this encounter
--- OUTSIDE RECORDS SUMMARY | 2024-03-03 11:32 | XMS_ITS | Encounter Summary ---
Author Organization [facility] [employer] Care Team Providers Care Physician Non Invasive Cardiologist Name Role Phone Jaylon Gudino MD Primary Care Provider [phone] Encounter Details Date Type Department Care Team (Latest Contact Info) Description 09/23/2021 Travel Social History Tobacco Use Types Packs/Day [...] st Contact Info) Description 04/25/2024 9:30 AM COOKING CHEF Office Visit [facility] Medical Group - Internal Medicine - [place] [address] [place] [address] Jaylon Gudino MD [address] [place] [address] documented as of this encounter Visit Diagnoses Not on filedocumented in this encounter Additional Health Concerns Assessment Noted Time PHQ-9 Depression Total Score: 0 04/17/19 21 9:00 AM COOKING CHEF documented as of this encounter Care Teams Physician Non Invasive Cardiologist Relationship Specialty Start Date End Date Jaylon Gudino MD [address] [place] [address] PCP - General Internal Medicine 01/16/16 documented as of this encounter
--- OUTSIDE RECORDS SUMMARY | 2024-03-03 11:32 | XMS_ITS | Encounter Summary ---
Author Organization [facility] Address [address] [place] [address] Phone Care Team Providers Care Printed Products Assembler Name Role Phone Jaylon Gudino MD Primary Care Provider Reason for Visit * Reason Comments Medication Refill Encounter Details Date Type Department Care Team (Late st Contact Info) Description 11/04/2021 Refill [facility] Medical Group - Internal Medicine - [place] [address] [place] [phone] Jaylon Gudino MD [address] [place] [address] Medication Refill Social History Tobacco Use Types [...] Telephone Encounter - Keysha Loya RN - 11/05/2021 7:21 AM CDT Medication(s) [facility]illed and [facility] Chronic Medication Refill Standing Order for Pediatricand Adult Patients. Requested Prescriptions Pending Prescriptions Disp Refills ??? RABEprazole (ACIPHEX) 20 MG Tablet Delayed Response [Pharmacy Med Name: RABEprazole Sodium 20 MG Oral Tablet Delayed Release] 90 Tablet 0 Sig: TAKE 2 TABLETS BY MOUTH ONCE DAILY. TAKE 30-60 MINUTES BEFORE SUPPER. Proton Pump Inhibitors Protocol Passed - 11/04/2021 8:32 PM Passed - Visit with relevant provider in past 12 months or upcoming 90 days Recent Visits Date Type Provider Dept 09/23/21 Office Visit Jaylon Gudino MD [facility] [place] 03/25/21 Office Visit Jaylon Gudino MD [facility] [place] 12/17/20 Office Visit Jaylon Gudino MD [facility] [place] Showing recent visits within past 365 days and meeting all other requirements Future Appointments No visits were found meeting these conditions. Showing future appointments within next 90 days and meeting all other requirements documented in this encounter Plan of Treatment Upcoming Encounters Date Type Department Care Team (Late st Contact Info) Description 04/25/2024 9:30 AM INSPECTOR ROUGH CASTINGS Office Visit [facility] Medical Group - Internal Medicine [facility] [address] [place] [address] Jaylon Gudino MD [address] [place] [address] documented as of this encounter Visit Diagnoses Not on filedocumented in this encounter Additional Health Concerns Assessment Noted Time PHQ-9 Depression Total Score: 0 04/17/19 9:00 AM INSPECTOR ROUGH CASTINGS documented as of this encounter Care Teams Printed Products Assembler Relationship Specialty Start Date End Date Jaylon Gudino MD [address] [place] [address] PCP - General Internal Medicine 01/16/16 documented as of this encounter
--- OUTSIDE RECORDS SUMMARY | 2024-03-03 11:32 | XMS_ITS | Encounter Summary ---
Author Organization [facility] Address [address] [place] [address] Phone Care Team Providers Care Adz Worker Name Role Phone Jaylon Gudino MD Primary Care Provider Reason for Visit * Reason Comments Medication Refill Encounter Details Date Type Department Care Team (Late st Contact Info) Description 11/23/2021 Refill [facility] Medical Group - Internal Medicine - [place] [address] [place] [phone] Jaylon Gudino MD [address] [place] [address] Medication Refill Social History Tobacco Use Types [...] Telephone Encounter - Keysha Loya RN - 11/25/2021 8:17 AM CDT Medication(s) [facility]illed and [facility] Medication Refill Standing Order for Pediatricand Adult Patients. Requested Prescriptions Pending Prescriptions Disp Refills ??? pravastatin (PRAVACHOL) 40 MG Tablet [Pharmacy Med Name: Pravastatin Sodium 40 MG Oral Tablet] 180 Tablet 0 Sig: TAKE 2 TABLETS BY MOUTH NIGHTLY Hmg CoA Reductase Inhibitors Protocol Passed - 11/23/2021 10:05 AM Passed - Visit with relevant provider in past 12 months or upcoming 90 days Recent Visits Date Type Provider Dept 09/23/21 Office Visit Jaylon Gudino MD [facility] [place] 03/25/21 Office Visit Jaylon Gudino MD [facility] [place] 12/17/20 [facility] [place] Showing recent visits within past 365 [...] Range Status 09/24/2021 124.6 <130 mg/dL Final documented in this encounter Plan of Treatment Upcoming Encounters Date Type Department Care Team (Late st Contact Info) Description 04/25/2024 9:30 AM FINISH MENDER Office Visit [facility] Medical Group - Internal Medicine - [place] [address] [place] [address] Jaylon Gudino MD [address] [place] [address] documented as of this encounter Visit Diagnoses Not on filedocumented in this encounter Additional Health Concerns Assessment Noted Time PHQ-9 Depression Total Score: 0 04/17/19 21 9:00 AM FINISH MENDER documented as of this encounter Care Teams Adz Worker Relationship Specialty Start Date End Date Jaylon Gudino MD [address] [place] [address] PCP - General Internal Medicine 01/16/16 documented as of this encounter
--- OUTSIDE RECORDS SUMMARY | 2024-03-03 11:32 | XMS_ITS | Encounter Summary ---
Author Organization [facility] Address [address] [place] [address] Phone Care Team Providers Care Chemist Intern Name Role Phone Jaylon Gudino MD Primary Care Provider Reason for Visit * Reason Onset Date Comments Results 09/24/2021 Encounter Details Date Type Department Care Team (Late st Contact Info) Description 09/24/2021 Telephone [facility] - [place] [address] [place] [address] Jaylon Gudino MD [address] [facility] [place] [address] Results Social History Tobacco Use [...] Telephone Encounter - Luzma Liu RN - 09/24/2021 4:05 PM CDT Pt aware of labs and verbalizes understanding. * Telephone Encounter - Luzma Liu RN - 09/24/2021 4:02 PM CDT Unable to reach pt at this time, LVM to return call. * Telephone Encounter - Luzma Liu RN - 09/24/2021 4:02 PM CDT ----- Message from Jaylon Gudino MD sent at 09/24/2021 3:52 PM CDT ----- CMP, lipid, [id number]. No change in medications documented in this encounter Plan of Treatment Upcoming Encounters Date Type Department Care Team (Late st Contact Info) Description 04/25/2024 9:30 AM SACK MAKER Office Visit [facility] Medical Group - Internal Medicine - [place] [address] [place] [phone] Jaylon Gudino MD [address] [place] [address] documented as of this encounter Visit Diagnoses Not on filedocumented in this encounter Additional Health Concerns Assessment Noted Time PHQ-9 Depression Total Score: 0 04/17/19 21 9:00 AM SACK MAKER documented as of this encounter Care Teams Chemist Intern Relationship Specialty Start Date End Date Jaylon Gudino MD [address] [place] [address] PCP - General Internal Medicine 01/16/16 documented as of this encounter
--- OUTSIDE RECORDS SUMMARY | 2024-03-03 11:32 | XMS_ITS | Encounter Summary ---
Author Organization [facility] Address [address] [place] [address] Phone Care Team Providers Care Road Sign Installer Name Role Phone Jaylon Gudino MD Primary Care Provider Encounter Details Date Type Department Care Team (Late st Contact Info) Description 12/10/2021 1:40 PM CDT Immunization [facility] Medical Group - Internal Medicine - [place] [address] [place] [address] [facility] Nurse [place] Influenza vaccine administered (Primary Dx) Discharge Disposition: Discharged to home [...] of this encounter Progress Notes * Luzma Liu, RN - 12/10/2021 1:40 PM CDT Bacilio is here for immunizations per order of Dr. Gudino dated 12/10/21. Vaccine Information Sheet(s) were given on 12/10/21. Verbal consent was obtained. Bacilio tolerated the immunization well without incident. See Immunization activity for details. documented in this encounter Plan of Treatment Upcoming Encounters Date Type Department Care Team (Late st Contact Info) Description 04/25/2024 9:30 AM CALCULATION CLERK [facility] - Internal Medicine - [place] [address] [place] [address] Jaylon Gudino MD [address] [place] [place] [address] documented as of this encounter Visit Diagnoses Diagnosis Influenza vaccine administered- Primary documented in this encounter Additional Health Concerns Assessment Noted Time PHQ-9 Depression Total Score: 0 04/17/19 21 9:00 AM CALCULATION CLERK documented as of this encounter Care Teams Road Sign Installer Relationship Specialty Start Date End Date Jaylon Gudino MD [address] [place] [address] PCP - General Internal Medicine 01/16/16 documented as of this encounter
--- OUTSIDE RECORDS SUMMARY | 2024-03-03 11:32 | XMS_ITS | Encounter Summary ---
Author Organization [facility] [employer] Care Team Providers Care Sewing Machine Adjuster Name Role Phone Jaylon Gudino MD Primary Care Provider [phone] Encounter Details Date Type Department Care Team (Latest Contact Info) Description 12/10/2021 Travel Social History Tobacco Use Types Packs/Day [...] st Contact Info) Description 04/25/2024 9:30 AM PEGGER Office Visit [facility] Medical Group - Internal Medicine - [place] [address] [place] [address] Jaylon Gudino MD [address] [place] [address] documented as of this encounter Visit Diagnoses Not on filedocumented in this encounter Additional Health Concerns Assessment Noted Time PHQ-9 Depression Total Score: 0 04/17/19 21 9:00 AM PEGGER documented as of this encounter Care Teams Sewing Machine Adjuster Relationship Specialty Start Date End Date Jaylon Gudino MD [address] [place] [address] PCP - General Internal Medicine 01/16/16 documented as of this encounter
--- OUTSIDE RECORDS SUMMARY | 2024-03-03 11:33 | XMS_ITS | Encounter Summary ---
Author Organization [facility] Address [address] [place] [address] Phone Care Team Providers Care Operations Support Coordinator Name Role Phone Jaylon Gudino MD Primary Care Provider Reason for Visit * Reason Comments Medication Refill Encounter Details Date Type Department Care Team (Late st Contact Info) Description 02/24/2021 Refill [facility] Medical Group - Internal Medicine - [place] [address] [place] [phone] Jaylon Gudino MD [address] [place] [address] Medication Refill Social History Tobacco Use Types Packs/Day Years Used Date Smoking Tobacco: Former Cigarettes 1 10 Smokeless Tobacco: Never Alcohol Use Standard Drinks/Week Comments No 0 (1 standard drink = 0.6 oz pur e alcohol) PHQ-2 Answer Date Recorded Total Score - Questions 1-9 0 04/02 Sexually Active Control Partners Comments Yes Sex [...] Telephone Encounter - Keysha Loya RN - 02/25/2021 11:04 AM PRESIDENT + PUBLISHER Medication(s) [facility]. Proton Pump Inhibitors Protocol Passed - 02/24/2021 6:55 PM Passed - Visit with relevant provider in past 12 months or upcoming 90 days Recent Visits Date Type Provider Dept 12/17/20 Office Visit Jaylon Gudino MD [facility] [place] 09/10/20 Office Visit Jaylon Gudino MD [facility] [place] 07/26/20 Office Visit Jaylon Gudino MD [facility] [place] 04/17/20 [facility] [place] Showing recent visits within past 365 days and meeting all other requirements Future Appointments Date Type Provider Dept 03/25/21 Appointment Jaylon Gudino MD [facility] [place] Showing future appointments within next 90 days and meeting all other requirements IDENT + PUBLISHER documented in this encounter Plan of Treatment Upcoming Encounters Date Type Department Care Team (Late st Contact Info) Description 04/25/2024 9:30 AM PRESIDENT + PUBLISHER Office Visit [facility] Medical Group - Internal Medicine - [place] [address] [place] [address] Jaylon Gudino MD [address] [place] [address] documented as of this encounter Visit Diagnoses Not on filedocumented in this encounter Additional Health Concerns Assessment Noted Time PHQ-9 Depression Total Score: 0 04/17/19 9:00 AM PRESIDENT + PUBLISHER documented as of this encounter Care Teams Operations Support Coordinator Relationship Specialty Start Date End Date Jaylon Gudino MD [address] [place] [address] PCP - General Internal Medicine 01/16/16 documented as of this encounter
--- OUTSIDE RECORDS SUMMARY | 2024-03-03 11:33 | XMS_ITS | Encounter Summary ---
Author Organization [facility] Address [address] [place] [address] Phone Care Team Providers Care Pharmacy Manager Name Role Phone Jaylon Gudino MD Primary Care Provider [phone] Reason for Visit * Reason Comments Medication Refill Encounter Details Date Type Department Care Team (Late st Contact Info) Description 12/03/2020 Refill [facility] - Internal Medicine - [place] [address] [place] [id number] Jaylon Gudino MD [address] [place] [address] Medication Refill Social History Tobacco Use Types [...] Telephone Encounter - Keysha Loya RN - 12/03/2020 8:38 AM CDT Medication failed the protocol, provider to review and approve the medication order if appropriate. Requested Prescriptions Pending Prescriptions Disp Refills losartan (COZAAR) 100 MG Tablet [Pharmacy Med Name: Losartan Potassium 100 MG Oral Tablet] 90 Tablet 0 Sig: Take 1 tablet by mouth once daily ARB Protocol Failed - 12/03/2020 8:35 AM Failed - Serum potassium on record in past 12 months No results found for: POTASSIUM, POCTK Failed - GFR on record in past 12 months No results found for: GFRNA Passed - BP on record in the past year Clinician-entered: BP Readings from Last 3 Encounters: 09/10/20 138/70 07/26/20 138/70 04/17/20 128/64 Patient-entered: No data recorded Passed - Visit with relevant provider in past year or upcoming 90 days Recent Visits Date Type Provider Dept 09/10/20 Office Visit Jaylon Gudino MD [facility] [place] 07/26/20 Office Visit Jaylon Gudino MD [facility] [place] 04/17/20 Office Visit Jaylon Gudino MD [facility] [place] 01/16/20 Office Visit Jaylon Gudino MD [facility] [place] 12/21/19 Office Visit Jaylon Gudino MD [facility] [place] Showing recent visits within past 365 days and meeting all other requirements Future Appointments Date Type Provider Dept 12/17/20 Appointment Jaylon Gudino MD [facility] [place] Showing future appointments within next 90 days and meeting all other requirements amLODIPine (NORVASC) 5 MG Tablet [Pharmacy Med Name: amLODIPine Besylate 5 MG Oral Tablet] 180 Tablet 0 Sig: Take 1 tablet by mouth twice daily Calcium-Channel Blockers Protocol Passed - 12/03/2020 8:35 AM Passed - BP on record in the past year Clinician-entered: BP Readings from Last 3 Encounters: 09/10/20 138/70 07/26/20 138/70 04/17/20 128/64 Patient-entered: No data recorded Passed - Visit with relevant provider in past 12 months or upcoming 90 days Recent Visits Date Type Provider Dept 09/10/20 Office Visit Jaylon Gudino MD [facility] [place] 07/26/20 Office Visit Jaylon Gudino MD [facility] [place] 04/17/20 Office Visit Jaylon Gudino MD [facility] [place] 01/16/20 Office Visit Jaylon Gudino MD [facility] [place] 12/21/19 Office Visit Jaylon Gudino MD [facility] [place] Showing recent visits within past 365 days and meeting all other requirements Future Appointments Date Type Provider Dept 12/17/20 Appointment Jaylon Gudino MD [facility] [place] Showing future appointments within next 90 days and meeting all other requirements documented in this encounter Plan of Treatment Upcoming Encounters Date Type Department Care Team (Late st Contact Info) Description 04/25/2024 9:30 AM HOSPITAL CARRIER Office Visit [facility] - Internal Medicine [facility] [address] [place] [address] Jaylon Gudino MD [address] [place] [address] documented as of this encounter Visit Diagnoses Not on filedocumented in this encounter Additional Health Concerns Assessment Noted Time PHQ-9 Depression Total Score: 0 04/17/19 9:00 AM HOSPITAL CARRIER documented as of this encounter Care Teams Pharmacy Manager Relationship Specialty Start Date End Date Jaylon Gudino MD [address] [place] [address] PCP - General Internal Medicine 01/16/16 documented as of this encounter
--- OUTSIDE RECORDS SUMMARY | 2024-03-03 11:33 | XMS_ITS | Encounter Summary ---
Author Organization [facility] Address [address] [place] [address] Phone Care Team Providers Care Restaurant Mgr Name Role Phone Jaylon Gudino MD Primary Care Provider [phone] Reason for Visit * Reason Comments Medication Refill Encounter Details Date Type Department Care Team (Late st Contact Info) Description 2020 Refill [facility] - Internal Medicine - [place] [address] [place] [phone] Jaylon Gudino MD [address] [place] [address] Medication Refill Social History Tobacco Use Types [...] Exposure Response Date Recorded In the last month, have you been in contact with someone who was confirmed or suspected to have Coronavirus / COVID-19? No / Unsure 08/06/2020 9:59 AM CDT documented as of this encounter Miscellaneous Notes * Telephone Encounter - Keysha Loya RN - 2020 8:01 AM CDT Please review and sign. documented in this encounter Plan of Treatment Upcoming Encounters Date Type Department Care Team (Late st Contact Info) Description 04/25/2024 9:30 AM LEATHER SOFTENER Office Visit [facility] - Internal Medicine [facility] [address] [place] [address] Jaylon Gudino MD [address] [place] [address] documented as of this encounter Visit Diagnoses Not on filedocumented in this encounter Additional Health Concerns Assessment Noted Time PHQ-9 Depression Total Score: 0 04/17/19 21 9:00 AM LEATHER SOFTENER documented as of this encounter Care Teams Restaurant Mgr Relationship Specialty Start Date End Date Jaylon Gudino MD [address] [place] [address] PCP - General Internal Medicine 01/16/16 documented as of this encounter
--- OUTSIDE RECORDS SUMMARY | 2024-03-03 11:33 | XMS_ITS | Encounter Summary ---
Author Organization [facility] Address [address] [place] [address] Phone Care Team Providers Care Tree Trimmer Helper Name Role Phone Jaylon uGdino MD Primary Care Provider Reason for Visit * Reason Comments Medication Refill Encounter Details Date Type Department Care Team (Late st Contact Info) Description 11/05/2020 Refill [facility] - Internal Medicine - [place] [address] [place] [phone] Jaylon Gudino MD [address] [place] [address] Medication Refill Social History Tobacco Use Types [...] Telephone Encounter - Keysha Loya RN - 11/06/2020 7:46 AM CDT Medication(s) refilled and signed per [...] SUPPER. Proton Pump Inhibitors Protocol Passed - 11/05/2020 6:46 PM Passed - Visit with relevant provider in past 12 months or upcoming 90 days Recent Visits Date Type Provider Dept 09/10/20 Office Visit Jaylon Gudino MD [facility] [place] 07/26/20 Office Visit Jaylon Gudino MD [facility] [place] 04/17/20 Office Visit Jaylon Gudino MD [facility] [place] 01/16/20 Office Visit Jaylon Gudino MD [facility] [place] 12/21/19 Office Visit Jaylon Gudino MD [facility] [place] Showing recent visits within past 365 days and meeting all other requirements Future Appointments Date Type Provider Dept 12/17/20 Appointment Jaylon Gudino MD [facility] [place] Showing future appointments within next 90 days and meeting all other requirements documented in this encounter Plan of Treatment Upcoming Encounters Date Type Department Care Team (Late st Contact Info) Description 04/25/2024 9:30 AM ADMISSIONS COUNSELOR Office Visit [facility] - Internal Medicine - [place] [address] [place] [address] Jaylon Gudino MD [address] [place] [address] documented as of this encounter Visit Diagnoses Not on filedocumented in this encounter Additional Health Concerns Assessment Noted Time PHQ-9 Depression Total Score: 0 04/17/19 9:00 AM ADMISSIONS COUNSELOR documented as of this encounter Care Teams Tree Trimmer Helper Relationship Specialty Start Date End Date Jaylon Gudino MD [address] [place] [address] PCP - General Internal Medicine 01/16/16 documented as of this encounter
--- OUTSIDE RECORDS SUMMARY | 2024-03-03 11:33 | XMS_ITS | Encounter Summary ---
Author Organization [facility] [employer] Care Team Providers Care Director Script Name Role Phone Jaylon Gudino MD Primary Care Provider [phone] Encounter Details Date Type Department Care Team (Latest Contact Info) Description 03/25/2021 Travel Social History Tobacco Use Types Packs/Day [...] have Coronavirus / COVID-19? No / Unsure 03/25/2021 9:39 AM HOSE CEMENTER documented as of this encounter Plan of Treatment Upcoming Encounters Date Type Department Care Team (Late st Contact Info) Description 04/25/2024 9:30 AM HOSE CEMENTER Office Visit [facility] - Internal Medicine - [place] [address] [place] [address] Jaylon Gudino MD [address] [place] [address] documented as of this encounter Visit Diagnoses Not on filedocumented in this encounter Additional Health Concerns Assessment Noted Time PHQ-9 Depression Total Score: 0 04/17/19 21 9:00 AM HOSE CEMENTER documented as of this encounter Care Teams Director Script Relationship Specialty Start Date End Date Jaylon Gudino MD [address] [place] [address] PCP - General Internal Medicine 01/16/16 documented as of this encounter
--- OUTSIDE RECORDS SUMMARY | 2024-03-03 11:33 | XMS_ITS | Encounter Summary ---
Author Organization [facility] Address [address] [place] [address] Phone Care Team Providers Care Manager Critical Care Unit Name Role Phone Jaylon Gudino MD Primary Care Provider Reason for Visit * Reason Comments Medication Refill Encounter Details Date Type Department Care Team (Late st Contact Info) Description 02/15/2021 Refill [facility] - Internal Medicine - [place] [address] [place] [phone] Jaylon Gudino MD [address] [place] [address] Medication Refill Social History Tobacco Use Types [...] Telephone Encounter - Keysha Loya RN - 02/15/2021 2:04 PM CST Medication(s) [facility] Standing Order for Pediatricand Adult Patients. Requested Prescriptions Pending Prescriptions Disp Refills ??? pravastatin (PRAVACHOL) 40 MG Tablet [Pharmacy Med Name: Pravastatin Sodium 40 MG Oral Tablet] 180 Tablet 0 Sig: TAKE 2 TABLETS BY MOUTH NIGHTLY Hmg CoA Reductase Inhibitors Protocol Passed - 02/15/2021 6:46 AM Passed - Visit with relevant provider in past 12 months or upcoming 90 days Recent Visits Date Type Provider Dept 12/17/20 Office Visit Jaylon Gudino MD [facility] [place] 09/10/20 Office Visit Jaylon Gudino MD [facility] [place] 07/26/20 Office Visit Jaylon Gudino MD [facility] [place] 04/17/20 Office Visit Jaylon Gudino MD [facility] [place] Show[place] recent visits within past 365 days and meeting all other requirements Future Appointments Date Type Provider Dept 03/25/21 Appointment Jaylon Gudino MD [facility] [place] future appointments within next 90 days and meeting all other requirements Passed - Lipid panel in past 12 months LDL Date Value Ref Range Status 12/17/2020 62 5 - 130 mg/dL Final 04/17/2020 52 0 - 130 mg/dL Final HDL CHOLESTEROL Date Value Ref Range Status 12/17/2020 67.7 >40 mg/dL Final CHOLESTEROL Date Value Ref Range Status 12/17/2020 162 <=200 mg/dL Final TRIGLYCERIDES Date Value Ref Range Status 12/17/2020 160 (H) <150 mg/dL Final VLDL Date Value Ref Range Status 12/17/2020 32 5 - 55 mg/dL Final CHOL/HDL RATIO Date Value Ref Range Status 12/17/2020 2.4 0.0 - 4.4 Final NON-HDL CHOLESTEROL Date Value Ref Range Status 12/17/2020 94.3 <130 mg/dL Final FACTURERS REPRESENTATIVE documented in this encounter Plan of Treatment Upcoming Encounters Date Type Department Care Team (Late st Contact Info) Description 04/25/2024 9:30 AM MANUFACTURERS REPRESENTATIVE Office Visit [facility] - Internal Medicine [place] [address] [place] [address] Jaylon Gudino MD [address] [place] [address] documented as of this encounter Visit Diagnoses Not on filedocumented in this encounter Additional Health Concerns Assessment Noted Time PHQ-9 Depression Total Score: 0 04/17/19 21 9:00 AM MANUFACTURERS REPRESENTATIVE documented as of this encounter Care Teams Manager Critical Care Unit Relationship Specialty Start Date End Date Jaylon Gudino MD [address] [place] [address] PCP - General Internal Medicine 01/16/16 documented as of this encounter
--- OUTSIDE RECORDS SUMMARY | 2024-03-03 11:33 | XMS_ITS | Encounter Summary ---
Author Organization [facility] Address [address] [place] [address] Phone Care Team Providers Care Credit Verifier Name Role Phone Jaylon Gudino MD Primary Care Provider Reason for Visit * Reason Comments Medication Refill Encounter Details Date Type Department Care Team (Late st Contact Info) Description 09/14/2021 Refill [facility] - Internal Medicine - [place] [address] [place] [phone] Jaylon Gudino MD [address] [place] [address] Medication Refill Social History Tobacco Use Types [...] Telephone Encounter - Keysha Loya RN - 09/16/2021 7:54 AM CDT Medication(s) [facility] Med[facility] Refill Standing Order for Pediatricand Adult Patients. Requested Prescriptions Pending Prescriptions Disp Refills ??? amLODIPine (NORVASC) 5 MG Tablet [Pharmacy Med Name: amLODIPine Besylate 5 MG Oral Tablet] 180 Tablet 0 Sig: Take 1 tablet by mouth twice daily Calcium-Channel Blockers Protocol Passed - 09/14/2021 8:52 AM Passed - BP on record in the past year Clinician-entered: BP Readings from Last 3 Encounters: 03/25/21 140/70 12/17/20 150/72 09/10/20 138/70 Patient-entered: No data recorded Passed - Visit with relevant provider in past 12 months or upcoming 90 days Recent Visits Date Type Provider Dept 03/25/21 Office Visit Jaylon Gudino MD [facility] [place] 12/17/20 Office Visit Jaylon Gudino MD [facility] [place] Show[place] recent visits within past 365 days and meeting all other requirements Future Appointments Date Type Provider Dept 09/23/21 Appointment Jaylon Gudino MD [facility] [place] Show[place] future appointments within next 90 days and meeting all other requirements ??? valsartan (DIOVAN) 160 MG Tablet [Pharmacy Med Name: Valsartan 160 MG Oral Tablet] 90 Tablet 0 Sig: Take 1 tablet by mouth once daily ARB Protocol Passed - 09/14/2021 8:52 AM Passed - Serum potassium on record in past 12 months POTASSIUM Date Value Ref Range Status 12/17/2020 4.2 3.5 - 5.1 mmol/L Final Passed - BP on record in the past year Clinician-entered: BP Readings from Last 3 Encounters: 03/25/21 140/70 12/17/20 150/72 09/10/20 138/70 Patient-entered: No data recorded Passed - Visit with relevant provider in past year or upcoming 90 days Recent Visits Date Type Provider Dept 03/25/21 Office Visit Jaylon Gudino MD [facility] [place] 12/17/20 Office Visit Jaylon Gudino MD [facility] [place] Showing recent visits within past 365 days and meeting all other requirements Future Appointments Date Type Provider Dept 09/23/21 Appointment [place]ud[place] [facility] [place] future appointments within next 90 days and meeting all other requirements Passed - GFR on record in past 12 months GFR, EST. NONAFRICAN Date Value Ref Range Status 12/17/2020 >60 >=60 Final documented in this encounter Plan of Treatment Upcoming Encounters Date Type Department Care Team (Late st Contact Info) Description 04/25/2024 9:30 AM TRANSITION RN [facility] - [facility] Medicine - [place] [address] [place] [address] Jaylon Gudino MD [address] [place] [address] documented as of this encounter Visit Diagnoses Not on filedocumented in this encounter Additional Health Concerns Assessment Noted Time PHQ-9 Depression Total Score: 0 04/17/19 21 9:00 AM TRANSITION RN documented as of this encounter Care Teams Credit Verifier Relationship Specialty Start Date End Date Jaylon Gudino MD [address] [place] [address] PCP - General Internal Medicine 01/16/16 documented as of this encounter
--- OUTSIDE RECORDS SUMMARY | 2024-03-03 11:33 | XMS_ITS | Encounter Summary ---
Author Organization [facility] Address [address] [place] [address] Phone Care Team Providers Care Test Administrator Name Role Phone Jaylon Gudino MD Primary Care Provider [phone] Reason for Referral * Consult, Test & Initiate Treatment (Routine) - Closed Specialty Diagnoses / Procedures Referred By Contac t Referred To Contact Diagnoses Pruritus Jaylon Gudino MD [address] [place] [address] Phone: tel: fax: Zain Manuel MD [facility] [address] [address] Phone: tel: fax: Referral ID Status Reason Start Date Expiration Date Visits Re quested Visits Authorized [id number] Closed 09/10/2020 1 1 Scheduling Instructions Bacilio is being referred to Dr. Manuel or other specialist in patient's insurance network for gen. Pruritus See below for Bacilio's current medications, allergies and problem list. CURRENT MEDS: Current Outpatient Medications: amLODIPine (NORVASC) 5 MG Tablet, Take 5 mg by mouth daily., Disp: , Rfl: hydrOXYzine (ATARAX) 25 MG Tablet, Take 1 Tablet by mouth every 6 hours as needed for Itching., Disp: 40 Tablet, Rfl: 0 losartan (COZAAR) 100 MG Tablet, Take 1 tablet by mouth once daily, Disp: 90 Tablet, Rfl: 0 pravastatin (PRAVACHOL) 40 MG Tablet, TAKE 2 TABLETS BY MOUTH NIGHTLY, Disp: 180 Tablet, Rfl: 0 RABEprazole (Aciphex) 20 MG Tablet Delayed Response, Take 2 Tabs by mouth daily. 30-60 minutes AC supper, d/c prior Rx, Disp: 90 Tab, Rfl: 1 No current facility-administered medications for this visit. ALLERGIES: -- Sulfa Antibiotics -- Rash -- Avelox [Moxifloxacin Hcl In Nacl] -- Unknown -- Penicillins -- Hives -- Simvastatin -- Other (see Comments) -- MUSCLE PAIN PROBLEM LIST: Patient Active Problem List: Nasal turbinate hypertrophy Chronic laryngitis Laryngopharyngeal reflux (LPR) PNAR (perennial non-allergic rhinitis) Mixed hyperlipidemia GERD without esophagitis Pain in right shoulder Abdominal aortic aneurysm (AAA) without rupture (HCC) History of left-sided carotid endarterectomy Essential hypertension, benign BPH with obstruction/lower urinary tract symptoms Hyperglycemia Generalized pruritus Reason for Visit * Reason Comments Follow-up 1 mo f/u for htn Wax in Ear left ear Encounter Details Date Type Department Care Team (Late st Contact Info) Description 09/10/2020 10:15 AM CDT Office Visit [facility] - Internal Medicine [facility] [address] [place] [address] Jaylon Gudino MD [address] [place] [address] Essential hypertension, benign (Primary Dx); Pruritus; Mixed hyperlipidemia; GERD without esophagitis Discharge Disposition: Discharged to home or Selfcare [...] have Coronavirus / COVID-19? No / Unsure 09/10/2020 9:48 AM CDT documented as of this encounter Last Filed Vital Signs Vital Sign Reading Time Taken Comments Blood Pressure 138/70 09/10/2020 10:00 AM CDT Pulse 54 09/10/2020 10:00 AM CDT Temperature 36.4 ??C (97.6 ??F) 09/10/2020 10:00 AM C DT Respiratory Rate - - Oxygen Saturation 97% 09/10/2020 10:00 AM CDT Inhaled Oxygen Concentration - - Weight 80.7 kg (178 lb) 09/10/2020 10:00 AM CDT Height 177.8 cm (5' 10 ) 09/10/2020 10:00 AM CDT Body Mass Index 25.54 09/10/2020 10:00 AM CDT documented in this encounter Progress Notes * India Terrell, TOOL FILER HAND - 09/10/2020 10:15 AM CDT Bacilio Ramirez, 75 y.o., male is here for Follow-up (1 mo f/u for htn) and Wax in Ear (left ear) Medication Refills: Patient reports/denies need for medication refills. Orders Pended: no Requested Prescriptions No prescriptions requested or ordered in this encounter Home Medications Medication Sig Start Date End Date Taking? Authorizing Provider labetalol (NORMODYNE) 100 MG Tablet Take 1 Tablet by mouth 2 times daily. 07/26/20 Yes Jayoln Gudino MD losartan (COZAAR) 100 MG Tablet Take 1 tablet by mouth once daily 09/05/20 Yes Jaylon Gudino MD pravastatin (PRAVACHOL) 40 MG Tablet TAKE 2 TABLETS BY MOUTH NIGHTLY 08/17/20 Yes Jaylon Gudino MD RABEprazole (Aciphex) 20 MG Tablet Delayed Response Take 2 Tabs by mouth daily. 30-60 minutes AC supper, d/c prior Rx 01/16/20 Yes Jaylon Gudino MD There are no discontinued medications. I have reviewed the home medication list with the patient and have reconciled discrepancies. The list is accurate to the best of my knowledge. Smoking Status: Social History Tobacco Use ??? Smoking status: Former Smoker Packs/day: 1.00 Years: 10.00 Pack years: 10.00 Types: Cigarettes ??? Smokeless tobacco: Never Used Vaping Use ??? Vaping Use: Never used Substance Use Topics ??? Alcohol use: No Alcohol/week: 0.0 oz ??? Drug use: No Smoking Cessation Counseling Given: no Health Care Maintenance: Health Maintenance Due Topic Date Due ??? DTaP/Tdap/Td Immunization (1 - Tdap) Never done ??? Pneumococcal Immunization (65+ years) (1 of 1 - PPSV23) Never done ??? Zoster Immunization (2 of 3) 09/10/2015 Orders Pended: no The following BPA's have been addressed with the patient today: Smoking * Jaylon Gudino MD - 09/10/2020 10:15 AM CDT PROGRESS NOTE [facility] - [facility] MEDICINE [address] [place] [address] PHONE: [phone] FAX: [phone] 09/10/2020 NAME: Bacilio Ramirez, : 1945, Assessment ASSESSMENT & PLAN: Return in about 3 months (around 12/11/2020) for htn. Diagnoses and all orders for this visit: Essential hypertension, benign Pruritus Comments: Will try hydroxyzine 25 mg every 6 hr as needed. Refer to mine deputy specialist. Orders: - EXTERNAL ALLERGY REFERRAL; Future Mixed hyperlipidemia Comments: Stable. Continue current medication GERD without esophagitis Comments: Stable. Continue current medication Other orders - amLODIPine (NORVASC) 5 MG Tablet; Take 5 mg by mouth daily. - hydrOXYzine (ATARAX) 25 MG Tablet; Take 1 Tablet by mouth every 6 hours as needed for Itching. Follow-up in 3 months, sooner if needed Chief Complaint Patient presents with ??? Follow-up 1 mo f/u for htn ??? Wax in Ear left ear HPI Patient is here for follow-up for hypertension other medical problems. Blood pressure remained highwith labetalol so his back on amlodipine. There was no improvement in his itching after switching amlodipine to labetalol. Denies any chest pain or palpitation. Tolerating medications well. ROS Review of systems was negative, except as documented in HPI PHYSICAL EXAM VITALS: Wt Readings from Last 3 Encounters: 09/10/20 178 lb (80.7 kg) 07/26/20 177 lb (80.3 kg) 04/17/20 181 lb (82.1 kg) Temp Readings from Last 3 Encounters: 09/10/20 97.6 ??F (36.4 ??C) (Temporal) 07/26/20 98.1 ??F (36.7 ??C) (Temporal) 04/17/20 (!) 95.5 ??F (35.3 ??C) (Temporal) BP Readings from Last 3 Encounters: 09/10/20 138/70 07/26/20 138/70 04/17/20 128/64 Pulse Readings from Last 3 Encounters: 09/10/20 54 07/26/20 54 04/17/20 56 Physical Exam Constitutional: Appearance: Normal appearance. He is normal weight. HENT: Head: Normocephalic. Eyes: Extraocular Movements: Extraocular movements intact. Conjunctiva/sclera: [...] ??? hydrOXYzine (ATARAX) 25 MG Tablet ??? losartan (COZAAR) 100 MG Tablet ??? pravastatin (PRAVACHOL) 40 MG Tablet ??? RABEprazole (Aciphex) 20 MG Tablet Delayed Response I educated Bacilio regarding diagnoses and plan of care. He verbalizes understanding and will call the office if situation changes. Voice recognition software was utilized in this dictation. Despite proof reading, typographical errors and/or content errors may have occurred. By: Jaylon Gudino MD 09/10/2020 10:39 AM CDT documented in this encounter Plan of Treatment Upcoming Encounters Date Type Department Care Team (Late st Contact Info) Description 04/25/2024 9:30 AM SHOVEL LOG LOADER OPERATOR Office Visit [facility] - Internal Medicine [place] [address] [place] [address] Jaylon Gudino MD [address] [place] [address] Scheduled Referrals Name Type Priority Associated Diagnoses Orde r Schedule EXTERNAL ALLERGY REFERRAL Outpatient Referral Routine Pruritus Expected: 09/24/2020, Expires: 12/11/2020 documented as of this encounter Visit Diagnoses Diagnosis Essential hypertension, benign- Primary Pruritus Unspecified pruritic disorder Mixed hyperlipidemia GERD without esophagitis Esophageal reflux documented in this encounter Additional Health Concerns Assessment Noted Time PHQ-9 Depression Total Score: 0 04/17/19 21 9:00 AM SHOVEL LOG LOADER OPERATOR documented as of this encounter Care Teams Test Administrator Relationship Specialty Start Date End Date Jaylon Gudino MD [address] [place] [address] PCP - General Internal Medicine 01/16/16 documented as of this encounter
--- OUTSIDE RECORDS SUMMARY | 2024-03-03 11:33 | XMS_ITS | Encounter Summary ---
Author Organization [facility] [employer] Care Team Providers Care Standards Engineer Name Role Phone Jaylon Gudino MD Primary Care Provider [phone] Encounter Details Date Type Department Care Team (Latest Contact Info) Description 12/17/2020 Travel Social History Tobacco Use Types Packs/Day [...] have Coronavirus / COVID-19? No / Unsure 12/17/2020 9:39 AM CDT documented as of this encounter Plan of Treatment Upcoming Encounters Date Type Department Care Team (Late st Contact Info) Description 04/25/2024 9:30 AM TRADE FACILITATOR Office Visit [facility] Medical Group - Internal Medicine - [place] [address] [place] [address] Jaylon Gudino MD [address] [place] [address] documented as of this encounter Visit Diagnoses Not on filedocumented in this encounter Additional Health Concerns Assessment Noted Time PHQ-9 Depression Total Score: 0 04/17/19 21 9:00 AM TRADE FACILITATOR documented as of this encounter Care Teams Standards Engineer Relationship Specialty Start Date End Date Jaylon Gudino MD [address] [place] [address] PCP - General Internal Medicine 01/16/16 documented as of this encounter
--- OUTSIDE RECORDS SUMMARY | 2024-03-03 11:33 | XMS_ITS | Encounter Summary ---
Author Organization [facility] Address [address] [place] [address] Phone Care Team Providers Care Occupational Therapy Director Name Role Phone Jaylon Gudino MD Primary Care Provider [phone] Reason for Visit * Reason Comments Hyperlipidemia 3 mo f/u Wax in Ear both ears Encounter Details Date Type Department Care Team (Late st Contact Info) Description 12/17/2020 10:00 AM CDT Office Visit [facility] - Internal Medicine - [place] [address] [place] [address] Jaylon Gudino MD [address] [place] [address] Essential hypertension, benign (Primary Dx); Mixed hyperlipidemia; Encounter for immunization; Bilateral impacted cerumen Discharge Disposition: Discharged to [...] Sign Reading Time Taken Comments Blood Pressure 150/72 12/17/2020 10:21 AM CDT Pulse 76 12/17/2020 10:21 AM CDT Temperature 36.3 ??C (97.4 ??F) 12/17/2020 10:21 AM C DT Respiratory Rate - - Oxygen Saturation 98% 12/17/2020 10:21 AM CDT Inhaled Oxygen Concentration - - Weight 80.7 kg (178 lb) 12/17/2020 10:21 AM CDT Height 177.8 cm (5' 10 ) 12/17/2020 10:21 AM CDT Body Mass Index 25.54 12/17/2020 10:21 AM CDT documented in this encounter Progress Notes * India Terrell CMA - 12/17/2020 10:00 AM CDT Bacilio Childers Ramirez, 75 y.o., male is here for Hyperlipidemia (3 mo f/u) Medication Refills: Patient reports/denies need for medication refills. Orders Pended: no Requested Prescriptions No prescriptions requested or ordered in this encounter Home Medications Medication Sig Start Date End Date Taking? Authorizing Provider amLODIPine (NORVASC) 5 MG Tablet Take 1 tablet by mouth twice daily 12/03/20 Yes Jaylon Gudino MD hydrOXYzine (ATARAX) 25 MG Tablet Take 1 Tablet by mouth every 6 hours as needed for Itching. Patient not taking: Reported on 12/17/2020 09/10/20 Jaylon Gudino MD losartan (COZAAR) 100 MG Tablet Take 1 tablet by mouth once daily 12/03/20 Yes Jaylon Gudino MD pravastatin (PRAVACHOL) 40 MG Tablet TAKE 2 TABLETS BY MOUTH NIGHTLY 11/19/20 Yes Jaylon Gudino MD RABEprazole (ACIPHEX) 20 MG Tablet Delayed Response TAKE 2 TABLETS BY MOUTH ONCE DAILY. TAKE 30-60 MINUTES BEFORE SUPPER. 11/06/20 Yes Jaylon Gudino MD There are no [...] addressed with the patient today: Smoking * India Terrell CMA - 12/17/2020 10:00 AM CDT Bacilio presents today for immunization/injection of Pneumovax 23, ordered by Dr. Jaylon Gudino on 12/17/2020 was administered without incident. Patient tolerated it well. See immunizations/injections activity. * Jaylon Gudino MD - 12/17/2020 10:00 AM CDT PROGRESS NOTE [facility] - INTERNAL MEDICINE [address] [place] [address] PHONE: [phone] FAX: [phone] 12/17/2020 NAME: Bacilio Ramirez, : 1945, Assessment ASSESSMENT & PLAN: No follow-ups on file. Diagnoses and all orders for this visit: Essential hypertension, benign Comments: Continue to monitor blood pressure at home. Continue current medication Orders: - CMP (COMPREHENSIVE METABOLIC PANEL); Future - LIPID PANEL; Future - CMP (COMPREHENSIVE METABOLIC PANEL) - LIPID PANEL Mixed hyperlipidemia Comments: Stable. Continue current medication Orders: - CMP (COMPREHENSIVE METABOLIC PANEL); Future - LIPID PANEL; Future - CMP (COMPREHENSIVE METABOLIC PANEL) - LIPID PANEL Encounter for immunization Comments: Will give Pneumovax 23 vaccine today. Orders: - PNEUMOCOCCAL VACCINE (PPSV23) - PNEUMOCOCCAL 23 IMMUNIZATION QUESTIONS Bilateral impacted cerumen Comments: Wax removed from both ears with loop curette eyes. Check CMP, lipid profile Follow-up in 3 months, sooner if needed Chief Complaint Patient presents with ??? Hyperlipidemia 3 mo f/u ??? Wax in Ear both ears HPI Patient is here for follow-up for hypertension and other medical problems. Also complains of impaired hearing and clogged of years. No chest pain or palpitation. Blood pressure at home remains less than 140/90. Tolerating medications well. ROS Review of systems was negative, except as documented in HPI PHYSICAL EXAM VITALS: Wt Readings from Last 3 Encounters: 12/17/20 178 lb (80.7 kg) 09/10/20 178 lb (80.7 kg) 07/26/20 177 lb (80.3 kg) Temp Readings from Last 3 Encounters: 12/17/20 97.4 ??F (36.3 ??C) (Temporal) 09/10/20 97.6 ??F (36.4 ??C) (Temporal) 07/26/20 98.1 ??F (36.7 ??C) (Temporal) BP Readings from Last 3 Encounters: 12/17/20 150/72 09/10/20 138/70 07/26/20 138/70 Pulse Readings from Last 3 Encounters: 12/17/20 76 09/10/20 54 07/26/20 54 Physical Exam Vitals and nursing note reviewed. Constitutional: Appearance: Normal appearance. He is normal weight. HENT: Head: Normocephalic. Ears: Comments: Impacted wax in both ears present Eyes: Extraocular Movements: Extraocular movements intact. Conjunctiva/sclera: [...] time. Psychiatric: Mood and Affect: Mood normal. Wax removed from both ears. Patient tolerated well. Tympanic membranes of wax well visualized afterremoval Past medical, surgical, social and family history has been reviewed and updated as necessary. Medications and allergies has been reviewed and updated. Allergies Allergen Reactions ??? Sulfa Antibiotics Rash ??? Avelox [Moxifloxacin Hcl In Nacl] Unknown ??? Penicillins Hives ??? Simvastatin Other (see Comments) MUSCLE PAIN Current Outpatient Medications: ??? amLODIPine (NORVASC) 5 MG Tablet ??? losartan (COZAAR) 100 MG Tablet ??? pravastatin (PRAVACHOL) 40 MG Tablet ??? RABEprazole (ACIPHEX) 20 MG Tablet Delayed Response I educated Bacilio regarding diagnoses and plan of care. He verbalizes understanding and will call the office if situation changes. Voice recognition software was utilized in this dictation. Despite proof reading, typographical errors and/or content errors may have occurred. By: Jaylon Gudino MD 12/17/2020 10:59 AM CDT * Priscila Cristobal RN - 12/17/2020 10:00 AM CDT Pt states understanding documented in this encounter Procedure Notes * Jaylon Gudino MD - 12/17/2020 10:00 AM CDTAssociated Order(s): REMOVE IMPACTED EAR WAX VIA INSTRUMENT BILAT Ear wax removed from both ears with curette. Patient tolerated procedure well. documented in this encounter Plan of Treatment Upcoming Encounters Date Type Department Care Team (Late st Contact Info) Description 04/25/2024 9:30 AM CHEMOTHERAPIST Office Visit [facility] - Internal Medicine - [place] [address] [place] [id number] Jaylon Gudino MD [address] [place] [address] documented as of this encounter Procedures Procedure Name Priority Date/Time Associated Diagnosis Comments LIPID PANEL Routine 12/17/2020 10:56 AM CDT Essential hypertension, benign Mixed hyperlipidemia CMP (COMPREHENSIVE METABOLIC PANEL) Routine 12/17/2020 10:56 AM CDT Essential hypertension, benign Mixed hyperlipidemia REMOVE IMPACTED EAR WAX VIA INSTRUMENT BILAT Routine 12/17/2020 10:00 AM CDT Bilateral impacted cerumen documented in this encounter Results * (ABNORMAL) LIPID PANEL (12/17/2020 10:56 AM CDT) CHOLESTEROL 162 <=200 mg/dL 12/17/2020 4:30 PM CDT [facility] TRIGLYCERIDES 160(H) <150 mg/dL 12/17/2020 4:30 PM CDT [facility] HDL CHOLESTEROL 67.7 >40 mg/dL 4:30 PM CDT [facility] LDL 62 5 - 130 mg/dL 12/17/2020 4:30 PM CDT [facility] VLDL 32 5 - 55 mg/dL 12/17/2020 4:30 PM CDT [facility] CHOL/HDL RATIO 2.4 0.0 - 4.4 12/17/2020 4:30 PM CDT [facility] NON-HDL CHOLESTEROL 94.3 <130 mg/dL 12/17/2020 4:30 PM CDT [facility] Blood Venipuncture / Unknown 12/17/2020 10:56 AM CDT 12/17/2020 10:56 AM CDT Jaylon Gudino MD CHEMISTRY ORDERABLES Final Result [facility] [place] [address] * (ABNORMAL) CMP (COMPREHENSIVE METABOLIC PANEL) (12/17/2020 10:56 AM CDT) SODIUM 139 136 - 144 mmol/L 12/17/2020 4:30 PM CDT [facility] POTASSIUM 4.2 3.5 - 5.1 mmol/L 12/17/2020 4:30 PM CDT [facility] CHLORIDE 102 100 - 110 mmol/L 12/17/2020 4:30 PM CDT [facility] CO2, VENOUS 24 22 - 32 mmol/L 12/17/2020 4:30 PM CDT [facility] ANION GAP 17.2 8.0 - 20.0 mmol/L 12/17/2020 4:30 PM CDT [facility] GLUCOSE 105(H) 70 - 99 mg/dL 12/17/2020 4:30 PM CDT [facility] BUN 23 8 - 23 mg/dL 12/17/2020 4:30 PM CDT [facility] CREATININE, BLOOD 1.10 0.80 - 1.30 mg/dL 12/17/2020 4:30 PM CDT [facility] BUN/CREATININE RATIO 21(H) 12 - 20 ratio 12/17/2020 4:30 PM CDT [facility] TOTAL PROTEIN 7.6 6.0 - 8.3 g/dL 12/17/2020 4:30 PM CDT [facility] ALBUMIN 4.8 3.5 - 5.2 g/dL 12/17/2020 4:30 PM CDT [facility] Comment: The colormetric methods used for the determination of Albumin may lead to falsely elevated test results in patients suffering from renal failure or insufficiency due to interference with other proteins. A/G RATIO 1.7 1.0 - 2.0 12/17/2020 4:30 PM CDT [facility] CALCIUM 10.0 8.9 - 10.3 mg/dL 12/17/2020 4:30 PM CDT [facility] T BILI 0.7 <=1.2 mg/dL 12/17/2020 4:30 PM CDT [facility] SGOT (AST) 30 <=40 U/L 12/17/2020 4:30 PM CDT [facility] SGPT (ALT) 23 <=41 U/L 12/17/2020 4:30 PM CDT [facility] ALKALINE PHOSPHATASE 62 40 - 130 U/L 12/17/2020 4:30 PM CDT [facility] GFR, EST. NONAFRICAN >60 >=60 12/17/2020 4:30 PM CDT [facility] GFR, EST. >60 >=60 021 4:30 PM CDT [facility] Comment: Creatinine Clearance is the preferred criteria for selecting drug dose adjustments in renally impaired patients. ??The GFR is provided as additional pertinent clinical information. GFR is reported in mL/min/1.73 sq m. IS THE PATIENT REQUIRED TO BE FASTING? No 12/17/2020 4:30 PM CDT [facility] Blood Venipuncture / Unknown 12/17/2020 10:56 AM CDT 12/17/2020 10:56 AM CDT us Jaylon Gudino MD CHEMISTRY ORDERABLES Final Result [facility] [address] [place] [address] * REMOVE IMPACTED EAR WAX VIA INSTRUMENT BILAT (12/17/2020 10:00 AM CDT) Narrative Jaylon Gudino MD - 12/17/2020 10:00 AM CDT Jaylon Gudino MD ? 12/17/2020 ??4:56 PM Ear wax removed from both ears with curette. ??Patient tolerated procedure well. Jaylon Gudino MD PROCEDURE/MINOR SURGICAL OR DERABLES Final Result documented in this encounter Visit Diagnoses Diagnosis Essential hypertension, benign- Primary Mixed hyperlipidemia Encounter for immunization Need for other specified prophylactic vaccination against single bacterial disease Bilateral impacted cerumen Impacted cerumen documented in this encounter Additional Health Concerns Assessment Noted Time PHQ-9 Depression Total Score: 0 04/17/19 21 9:00 AM CHEMOTHERAPIST documented as of this encounter Care Teams Occupational Therapy Director Relationship Specialty Start Date End Date Jaylon Gudino MD [address] [place] [address] PCP - General Internal Medicine 01/16/16 documented as of this encounter
--- OUTSIDE RECORDS SUMMARY | 2024-03-03 11:33 | XMS_ITS | Encounter Summary ---
Author Organization [facility] Address [address] [address] Phone Care Team Providers Care Automatic Nailing Machine Operator Name Role Phone Jaylon Gudino MD Primary Care Provider Encounter Details Date Type Department Care Team (Late st Contact Info) Description 03/07/2021 [facility]ill [facility] - [place] [address] [place] [id number] Jaylon Gudino MD [address] [place] [place] [address] Social History Tobacco Use Types [...] encounter Miscellaneous Notes * Telephone Encounter - Jaylon Gudino MD - 03/07/2021 4:51 PM PRODUCT MANAGER FINANCIAL SERVICES Losartan not available. Chg to Marlynrtan [employer]CT MANAGER [employer]ANCIAL SERVICES documented in this encounter Plan of Treatment Upcoming Encounters Date Type Department Care Team (Late st Contact Info) Description 04/25/2024 9:30 AM PRODUCT MANAGER FINANCIAL SERVICES [facility] [place] [address] [place] [address] Jaylon Gudino MD [address] [place] [address] documented as of this encounter Visit Diagnoses Not on filedocumented in this encounter Additional Health Concerns Assessment Noted Time PHQ-9 Depression Total Score: 0 04/17/19 21 9:00 AM PRODUCT MANAGER FINANCIAL SERVICES documented as of this encounter Care Teams Automatic Nailing Machine Operator Relationship Specialty Start Date End Date Jaylon Gudino MD [address] [place] [address] PCP - General Internal Medicine 01/16/16 documented as of this encounter
--- OUTSIDE RECORDS SUMMARY | 2024-03-03 11:33 | XMS_ITS | Encounter Summary ---
Author Organization [facility] Address [address] [place] [address] Phone Care Team Providers Care It Support Analyst Name Role Phone Jaylon Gudino MD Primary Care Provider Reason for Visit * Reason Comments Medication Refill Encounter Details Date Type Department Care Team (Late st Contact Info) Description 06/10/2021 Refill [facility] - Internal Medicine - [place] [address] [place] [phone] Jaylon Gudino MD [address] [facility] [address] Medication Refill Social History Tobacco Use Types [...] Telephone Encounter - Luzma Liu RN - 06/10/2021 8:35 AM CDT Medication(s) refilled and signed [facility] Chronic Medication Refill Standing Order for Pediatricand Adult Patients. Requested Prescriptions Pending Prescriptions Disp Refills ??? amLODIPine (NORVASC) 5 MG Tablet [Pharmacy Med Name: amLODIPine Besylate 5 MG Oral Tablet] 180 Tablet 0 Sig: Take 1 tablet by mouth twice daily Calcium-Channel Blockers Protocol Passed - 06/10/2021 8:17 AM Passed - BP on record in the past year Clinician-entered: BP Readings from Last 3 Encounters: 03/25/21 140/70 12/17/20 150/72 09/10/20 138/70 Patient-entered: No data recorded Passed - Visit with relevant provider in past 12 months or upcoming 90 days Recent Visits Date Type Provider Dept 03/25/21 Office Visit Jaylon Gudino MD [facility] [place] 12/17/20 Office Visit Jaylon Gudino MD [facility] [place] 09/10/20 Office Visit Jaylon Gudino MD [facility] [place] 07/26/20 Office Visit Jaylon Gudino MD [facility] [place] Showing recent visits within past 365 days and meeting all other requirements Future Appointments No visits were found meeting these conditions. Showing future appointments within next 90 days and meeting all other requirements documented in this encounter Plan of Treatment Upcoming Encounters Date Type Department Care Team (Late st Contact Info) Description 04/25/2024 9:30 AM INSTALLATION TECH Office Visit [facility] Medical Group - Internal Medicine - [place] [address] [place] [phone] Jaylon Gudino MD [address] [place] [address] documented as of this encounter Visit Diagnoses Not on filedocumented in this encounter Additional Health Concerns Assessment Noted Time PHQ-9 Depression Total Score: 0 04/17/19 9:00 AM INSTALLATION TECH documented as of this encounter Care Teams It Support Analyst Relationship Specialty Start Date End Date Jaylon Gudino MD [address] [place] [address] PCP - General Internal Medicine 01/16/16 documented as of this encounter
--- OUTSIDE RECORDS SUMMARY | 2024-03-03 11:33 | XMS_ITS | Encounter Summary ---
Author Organization [facility] Address [address] [place] [address] Phone Care Team Providers Care Concrete Vault Maker Name Role Phone Jaylon Gudino MD Primary Care Provider Reason for Visit * Reason Comments Medication Refill Encounter Details Date Type Department Care Team (Late st Contact Info) Description 08/29/2021 Refill [facility] - Internal Medicine - [place] [address] [place] [phone] Jaylon Gudino MD [address] [place] [address] Medication Refill Social History Tobacco Use Types [...] Telephone Encounter - Keysha Loya RN - 08/29/2021 9:08 AM CDT Medication(s) [facility] and [facility] Chronic Medication Refill Standing Order for Pediatricand Adult Patients. Requested Prescriptions Pending Prescriptions Disp Refills ??? pravastatin (PRAVACHOL) 40 MG Tablet [Pharmacy Med Name: Pravastatin Sodium 40 MG Oral Tablet] 180 Tablet 0 Sig: TAKE 2 TABLETS BY MOUTH NIGHTLY Hmg CoA Reductase Inhibitors Protocol Passed - 08/29/2021 8:53 AM Passed - Visit with relevant provider in past 12 months or upcoming 90 days Recent Visits Date Type Provider Dept 03/25/21 Office Visit Jaylon Gudino MD [facility] [place] 12/17/20 Office Visit Jaylon Gudino MD [facility] [place] 09/10/20 Office Visit Jaylon Gudino MD [facility] [place] Showing recent visits within past 365 days and meeting all other requirements Future Appointments Date Type Provider Dept 09/23/21 Appointment Jaylon Gudino MD [facility] [place] Showing future appointments within next 90 [...] Range Status 12/17/2020 94.3 <130 mg/dL Final documented in this encounter Plan of Treatment Upcoming Encounters Date Type Department Care Team (Late st Contact Info) Description 04/25/2024 9:30 AM CIRCUIT TESTER [facility] - [facility] - [place] [address] [place] [address] Jaylon Gudino MD [address] [place] [address] documented as of this encounter Visit Diagnoses Not on filedocumented in this encounter Additional Health Concerns Assessment Noted Time PHQ-9 Depression Total Score: 0 04/17/19 21 9:00 AM CIRCUIT TESTER documented as of this encounter Care Teams Concrete Vault Maker Relationship Specialty Start Date End Date Jaylon Gudino MD [address] [place] [address] PCP - General Internal Medicine 01/16/16 documented as of this encounter
--- OUTSIDE RECORDS SUMMARY | 2024-03-03 11:33 | XMS_ITS | Encounter Summary ---
Author Organization [facility] Address [address] [place] [address] Phone Care Team Providers Care Political Science Instructor Name Role Phone Jaylon Gudino MD Primary Care Provider [phone] Reason for Visit * Reason Comments Medication Refill Encounter Details Date Type Department Care Team (Late st Contact Info) Description 11/17/2020 Refill [facility] Medical Group - Internal Medicine - [place] [address] [place] [phone] Jaylon Gudino MD [address] [place] [address] Medication Refill Social History Tobacco Use Types [...] Telephone Encounter - Keysha Loya RN - 11/19/2020 10:46 AM CDT Please review and sign. documented in this encounter Plan of Treatment Upcoming Encounters Date Type Department Care Team (Late st Contact Info) Description 04/25/2024 9:30 AM GRAB OPERATOR [facility] Visit [facility] - [facility] Medicine [facility] [address] [place] [address] Jaylon Gudino MD [address] [place] [address] documented as of this encounter Visit Diagnoses Not on filedocumented in this encounter Additional Health Concerns Assessment Noted Time PHQ-9 Depression Total Score: 0 04/17/19 21 9:00 AM GRAB OPERATOR documented as of this encounter Care Teams Political Science Instructor Relationship Specialty Start Date End Date Jaylon Gudino MD [address] [place] [address] PCP - General Internal Medicine 01/16/16 documented as of this encounter
--- OUTSIDE RECORDS SUMMARY | 2024-03-03 11:33 | XMS_ITS | Encounter Summary ---
Author Organization [facility] Address [address] [place] [address] Phone Care Team Providers Care Entry Level Financial Analyst Name Role Phone Jaylon Gudino MD Primary Care Provider Reason for Visit * Reason Comments Medication Refill Encounter Details Date Type Department Care Team (Late st Contact Info) Description 04/25/2021 Refill [facility] - Internal Medicine - [place] [address] [place] [phone] Jaylon Gudino MD [address] [place] [address] Medication Refill Social History Tobacco Use Types [...] Telephone Encounter - Keysha Loya RN - 04/25/2021 1:39 PM CST Medication failed the protocol, provider to review and approve the medication order if appropriate. Requested Prescriptions Pending Prescriptions Disp Refills hydrOXYzine (ATARAX) 25 MG Tablet [Pharmacy Med Name: hydrOXYzine HCl 25 MG Oral Tablet] 40 Tablet 0 Sig: Take 1 Tablet by mouth every 6 hours as needed for Itching. Not Delegated - Off Protocol Failed - 04/25/2021 12:45 PM Failed - This refill cannot be delegated Failed - Active on medication list Passed - Visit with relevant provider in past 12 months or upcoming 90 days Recent Visits Date Type Provider Dept 03/25/21 Office Visit Jaylon Gudino MD [facility] [place] 12/17/20 Office Visit Jaylon Gudino MD [facility] [place] 09/10/20 Office Visit Jaylon Gudino MD [facility] [place] 07/26/20 Office Visit Jaylon Gudino MD [facility] Showing recent visits within past 365 days and meeting all other requirements Future Appointments No visits were found meeting these conditions. Showing future appointments within next 90 days and meeting all other requirements SSIONS DEAN documented in this encounter Plan of Treatment Upcoming Encounters Date Type Department Care Team (Late st Contact Info) Description 04/25/2024 9:30 AM ADMISSIONS DEAN Office Visit [facility] - Internal Medicine - [place] [address] [place] [address] Jaylon Gudino MD [address] [place] [address] documented as of this encounter Visit Diagnoses Not on filedocumented in this encounter Additional Health Concerns Assessment Noted Time PHQ-9 Depression Total Score: 0 04/17/19 21 9:00 AM ADMISSIONS DEAN documented as of this encounter Care Teams Entry Level Financial Analyst Relationship Specialty Start Date End Date Jaylon Gudino MD [address] [place] [address] PCP - General Internal Medicine 01/16/16 documented as of this encounter
--- OUTSIDE RECORDS SUMMARY | 2024-03-03 11:33 | XMS_ITS | Encounter Summary ---
Author Organization [facility] Care Team Providers Care Acoustic Warfare Analyst Name Role Phone Jaylon Gudino MD Primary Care Provider [phone] Encounter Details Date Type Department Care Team (Latest Contact Info) Description 09/10/2020 Travel Social History Tobacco Use Types Packs/Day [...] st Contact Info) Description 04/25/2024 9:30 AM LYE BOILER Office Visit [facility] Medical Group - Internal Medicine - [place] [address] [place] [address] Jaylon Gudino MD [address] [place] [address] documented as of this encounter Visit Diagnoses Not on filedocumented in this encounter Additional Health Concerns Assessment Noted Time PHQ-9 Depression Total Score: 0 04/17/19 21 9:00 AM LYE BOILER documented as of this encounter Care Teams Acoustic Warfare Analyst Relationship Specialty Start Date End Date Jaylon Gudino MD [address] [place] [address] PCP - General Internal Medicine 01/16/16 documented as of this encounter
--- OUTSIDE RECORDS SUMMARY | 2024-03-03 11:33 | XMS_ITS | Encounter Summary ---
Author Organization [facility] Address [address] [place] [address] Phone Care Team Providers Care Spiral Weaver Name Role Phone Jaylon Gudino MD Primary Care Provider Reason for Visit * Reason Comments Medication Refill Encounter Details Date Type Department Care Team (Late st Contact Info) Description 03/05/[address] [facility] Medical Group - Internal Medicine - [place] [address] [place] [phone] Jaylon Gudino MD [address] [place] [address] Medication Refill Social History Tobacco Use Types [...] Telephone Encounter - Keysha Loya RN - 03/05/2021 9:52 AM CST Medication(s) refilled and signed per [facility] Chronic Medication Refill Standing Order for Pediatricand Adult Patients. Requested Prescriptions Pending Prescriptions Disp Refills ??? losartan (COZAAR) 100 MG Tablet [Pharmacy Med Name: Losartan Potassium 100 MG Oral Tablet] 90 Tablet 0 Sig: Take 1 tablet by mouth once daily ARB Protocol Passed - 03/05/2021 8:59 AM Passed - Serum potassium on record in past 12 months POTASSIUM Date Value Ref Range Status 12/17/2020 4.2 3.5 - 5.1 mmol/L Final Passed - BP on record in the past year Clinician-entered: BP Readings from Last 3 Encounters: 12/17/20 150/72 09/10/20 138/70 07/26/20 138/70 Patient-entered: No data recorded Passed - Visit with relevant provider in past year or upcoming 90 days Recent Visits Date Type Provider Dept 12/17/20 Office Visit Jaylon Gudino MD [facility] [place] 09/10/20 Office Visit Jaylon Gudino MD [facility] [place] 07/26/20 Office Visit Jaylon Gudino MD [facility] [place] 04/17/20 Office Visit Jaylon Gudino MD [facility] [place] Showing recent visits within past 365 days and meeting all other requirements Future Appointments Date Type Provider Dept 03/25/21 Appointment Jaylon Gudino MD [facility] [place] Showing future appointments within next 90 days and meeting all other requirements Passed - GFR on record in past 12 months GFR, EST. NONAFRICAN Date Value Ref Range Status 12/17/2020 >60 >=60 Final ??? amLODIPine (NORVASC) 5 MG Tablet [Pharmacy Med Name: amLODIPine Besylate 5 MG Oral Tablet] 180 Tablet 0 Sig: Take 1 tablet by mouth twice daily Calcium-Channel Blockers Protocol Passed - 03/05/2021 8:59 AM Passed - BP on record in the past year Clinician-entered: BP Readings from Last 3 Encounters: 12/17/20 150/72 09/10/20 138/70 07/26/20 138/70 Patient-entered: No data recorded Passed - Visit with relevant provider in past 12 months or upcoming 90 days Recent Visits Date Type Provider Dept 12/17/20 Office [facility] [place] 09/10/20 Office Visit [facility] [place] 07/26/20 Office Visit Jaylon Gudino MD [facility] [place] 04/17/20 Office Visit [facility] [place] Showing recent visits within past 365 days and meeting all other requirements Future Appointments Date Type Provider Dept 03/25/21 Appointment Jaylon Gudino MD [facility] [place] Showing future appointments within next 90 days and meeting all other requirements LOGY PHYSICIAN ASSISTANT documented in this encounter Plan of Treatment Upcoming Encounters Date Type Department Care Team (Late st Contact Info) Description 04/25/2024 9:30 AM ONCOLOGY PHYSICIAN ASSISTANT [facility] - Internal Medicine [facility] [address] [place] [address] Jaylon Gudino MD [address] [place] [address] documented as of this encounter Visit Diagnoses Not on filedocumented in this encounter Additional Health Concerns Assessment Noted Time PHQ-9 Depression Total Score: 0 04/17/19 21 9:00 AM ONCOLOGY PHYSICIAN ASSISTANT documented as of this encounter Care Teams Spiral Weaver Relationship Specialty Start Date End Date Jaylon Gudino MD [address] [place] [address] PCP - General Internal Medicine 01/16/16 documented as of this encounter
--- OUTSIDE RECORDS SUMMARY | 2024-03-03 11:33 | XMS_ITS | Encounter Summary ---
Author Organization [facility] Address [address] [place] [address] Phone Care Team Providers Care Air Pollution Auditor Name Role Phone Jaylon Gudino MD Primary Care Provider Reason for Visit * Reason Comments Medication Refill Encounter Details Date Type Department Care Team (Late st Contact Info) Description 06/15/2021 Refill [facility] Medical [facility] - Internal Medicine - [place] [address] [place] [phone] Jaylon Gudino MD [address] [place] [address] Medication Refill Social History Tobacco Use Types [...] Telephone Encounter - Keysha Loya RN - 06/24/2021 7:41 AM CDT Order pended documented in this encounter Plan of Treatment Upcoming Encounters Date Type Department Care Team (Late st Contact Info) Description 04/25/2024 9:30 AM MEDICAL DELIVERY DRIVER Office Visit [facility] - Internal Medicine [facility] [address] [place] [address] Jaylon Gudino MD [address] [place] [address] documented as of this encounter Visit Diagnoses Not on filedocumented in this encounter Additional Health Concerns Assessment Noted Time PHQ-9 Depression Total Score: 0 04/17/19 21 9:00 AM MEDICAL DELIVERY DRIVER documented as of this encounter Care Teams Air Pollution Auditor Relationship Specialty Start Date End Date Jaylon Gudino MD [address] [place] [address] PCP - General Internal Medicine 01/16/16 documented as of this encounter
--- OUTSIDE RECORDS SUMMARY | 2024-03-03 11:33 | XMS_ITS | Encounter Summary ---
Author Organization [facility] Address [address] [place] [address] Phone Care Team Providers Care Porcelain Enameler Name Role Phone Jaylon Gudino MD Primary Care Provider Reason for Visit * Reason Comments High Blood Pressure 3 mo f/u Encounter Details Date Type Department Care Team (Late st Contact Info) Description 03/25/2021 10:00 AM ROOFING LABORER [facility] Visit [facility] - Internal Medicine - [place] [address] [place] [address] Jaylon Gudino MD [address] [facility] [place] [address] Essential hypertension, benign (Primary Dx); Abdominal aortic aneurysm (AAA) without rupture (HCC); Mixed hyperlipidemia; GERD without esophagitis Discharge Disposition: [...] COVID-19? No / Unsure 03/25/2021 9:39 AM ROOFING LABORER documented as of this encounter Last Filed Vital Signs Vital Sign Reading Time Taken Comments Blood Pressure 140/70 03/25/2021 9:43 AM ROOFING LABORER Pulse 56 03/25/2021 9:43 AM ROOFING LABORER Temperature 36.6 ??C (97.9 ??F) 03/25/2021 9:43 AM CS T Respiratory Rate - - Oxygen Saturation 98% 03/25/2021 9:43 AM ROOFING LABORER Inhaled Oxygen Concentration - - Weight 81.2 kg (179 lb) 03/25/2021 9:43 AM ROOFING LABORER Height 177.8 cm (5' 10 ) 03/25/2021 9:43 AM ROOFING LABORER Body Mass Index 25.68 03/25/2021 9:43 AM ROOFING LABORER documented in this encounter Progress Notes * India Terrell, ADULT SCHOOL COUNSELOR - 03/25/2021 10:00 AM CST Bacilio Childers Ramirez, 75 y.o., male is here for High Blood Pressure (3 mo f/u) Medication Refills: Patient reports/denies need for medication refills. Orders Pended: no Requested Prescriptions No prescriptions requested or ordered in this encounter Home Medications Medication Sig Start Date End Date Taking? Authorizing Provider amLODIPine (NORVASC) 5 MG Tablet Take 1 tablet by mouth twice daily 03/05/21 Yes Jaylon Gudino MD pravastatin (PRAVACHOL) 40 MG Tablet TAKE 2 TABLETS BY MOUTH NIGHTLY 02/15/21 Yes Jaylon Gudino MD RABEprazole (ACIPHEX) 20 MG Tablet Delayed Response TAKE 2 TABLETS BY MOUTH ONCE DAILY. TAKE 30-60 MINUTES BEFORE SUPPER. 02/25/21 Yes Jaylon Gudino MD valsartan (DIOVAN) 160 MG Tablet Take 1 Tablet by mouth daily. 03/07/21 Yes Jaylon Gudino MD There are no [...] with the patient today: Smoking and Depression ING LABORER * Jaylon Gudino MD - 03/25/2021 10:00 AM CST PROGRESS NOTE [facility] - INTERNAL MEDICINE [address] [place] [address] PHONE: [phone] FAX: [phone] 03/25/2021 NAME: Bacilio Ramirez, : 1945, Assessment ASSESSMENT & PLAN: Return in about 6 months (around 09/22/2021) for htn. Diagnoses and all orders for this visit: Essential hypertension, benign Comments: Stable. Continue current medications Abdominal aortic aneurysm (AAA) without rupture (HCC) Comments: Repeat ultrasound in August 21. Asymptomatic Mixed hyperlipidemia Comments: Continue pravastatin and low-cholesterol diet. GERD without esophagitis Comments: Stable. Continue current medication Follow-up in 6 months, sooner if needed Chief Complaint Patient presents with ??? High Blood Pressure 3 mo f/u HPI Patient is here for follow-up for hypertension and other medical problems. Patient is feeling well.No headache or dizziness. No chest pain or palpitation. Tolerating medications well. ROS Review of systems was negative, except as documented in HPI PHYSICAL EXAM VITALS: Wt Readings from Last 3 Encounters: 03/25/21 179 lb (81.2 kg) 12/17/20 178 lb (80.7 kg) 09/10/20 178 lb (80.7 kg) Temp Readings from Last 3 Encounters: 03/25/21 97.9 ??F (36.6 ??C) (Temporal) 12/17/20 97.4 ??F (36.3 ??C) (Temporal) 09/10/20 97.6 ??F (36.4 ??C) (Temporal) BP Readings from Last 3 Encounters: 03/25/21 140/70 12/17/20 150/72 09/10/20 138/70 Pulse Readings from Last 3 Encounters: 03/25/21 56 12/17/20 76 09/10/20 54 Physical Exam Vitals and nursing note [...] ??? amLODIPine (NORVASC) 5 MG Tablet ??? pravastatin (PRAVACHOL) 40 MG [...] may have occurred. By: Jaylon Gudino MD 03/25/2021 9:59 AM ROOFING LABORER ING LABORER documented in this encounter Plan of Treatment Upcoming Encounters Date Type Department Care Team (Late st Contact Info) Description 04/25/2024 9:30 AM ROOFING LABORER [facility] Visit [facility] - Internal Medicine [facility] [address] [place] [address] Jyalon Gudino MD [address] [facility] [place] [address] documented as of this encounter Visit Diagnoses Diagnosis Essential hypertension, benign- Primary Abdominal aortic aneurysm (AAA) without rupture (HCC) Mixed hyperlipidemia GERD without esophagitis Esophageal reflux documented in this encounter Additional Health Concerns Assessment Noted Time PHQ-9 Depression Total Score: 0 04/17/19 21 9:00 AM ROOFING LABORER documented as of this encounter Care Teams Porcelain Enameler Relationship Specialty Start Date End Date Jaylon Gudino MD [address] [place] [address] PCP - General Internal Medicine 01/16/16 documented as of this encounter
--- OUTSIDE RECORDS SUMMARY | 2024-03-03 11:33 | XMS_ITS | Encounter Summary ---
Author Organization [facility] Address [address] [place] [address] Phone Care Team Providers Care Heading And Priming Operator Name Role Phone Jaylon Gudino MD Primary Care Provider Reason for Visit * Reason Comments Medication Refill Encounter Details Date Type Department Care Team (Late st Contact Info) Description 05/26/2021 Refill [facility] - Internal Medicine - [place] [address] [place] [phone] Jaylon Gudino MD [address] [place] [address] Medication Refill Social History Tobacco Use Types [...] Telephone Encounter - Keysha Loya RN - 05/27/2021 7:27 AM CDT Medication(s) [facility] Medication Refill Standing Order for Pediatricand Adult Patients. Requested Prescriptions Pending Prescriptions Disp Refills ??? pravastatin (PRAVACHOL) 40 MG Tablet [Pharmacy Med Name: Pravastatin Sodium 40 MG Oral Tablet] 180 Tablet 0 Sig: TAKE 2 TABLETS BY MOUTH NIGHTLY Hmg CoA Reductase Inhibitors Protocol Passed - 05/26/2021 5:57 PM Passed - Visit with relevant provider in past 12 months or upcoming 90 days Recent Visits Date Type Provider Dept 03/25/21 Office Visit Jaylon Gudino MD [facility] 12/17/20 Office Visit Jaylon Gudino MD [facility] [place] 09/10/20 Office Visit Jaylon Gudino MD [facility] [place] 07/26/20 [facility] recent visits within past 365 days [...] st Contact Info) Description 04/25/2024 9:30 AM DESKTOP SUPPORT SPECIALIST [facility] - [place] [address] [place] [address] Jaylon Gudino MD [address] [place] [address] documented as of this encounter Visit Diagnoses Not on filedocumented in this encounter Additional Health Concerns Assessment Noted Time PHQ-9 Depression Total Score: 0 04/17/19 21 9:00 AM DESKTOP SUPPORT SPECIALIST documented as of this encounter Care Teams Heading And Priming Operator Relationship Specialty Start Date End Date Jaylon Gudino MD [address] [place] [address] PCP - General Internal Medicine 01/16/16 documented as of this encounter
--- OUTSIDE RECORDS SUMMARY | 2024-03-03 11:33 | XMS_ITS | Encounter Summary ---
Author Organization [facility] Address [address] [place] [address] Phone Care Team Providers Care Die Tripper Name Role Phone Jaylon Gudino MD Primary Care Provider Reason for Visit * Reason Comments Hypertension 6 mo f/u Wax in Ear Both ears Encounter Details Date Type Department Care Team (Late st Contact Info) Description 09/23/2021 10:00 AM CDT Office Visit [facility] - Internal Medicine - [place] [address] [place] [address] Jaylon Gudino MD [address] [place] [address] Essential hypertension, benign (Primary Dx); Mixed hyperlipidemia; Hyperglycemia; Abdominal aortic aneurysm (AAA) without rupture (HCC) Discharge Disposition: Discharged to home or Selfcare [...] Sign Reading Time Taken Comments Blood Pressure 122/66 09/23/2021 10:16 AM CDT Pulse 84 09/23/2021 10:16 AM CDT Temperature 36.3 ??C (97.3 ??F) 09/23/2021 10:16 AM C DT Respiratory Rate - - Oxygen Saturation 96% 09/23/2021 10:16 AM CDT Inhaled Oxygen Concentration - - Weight 83.5 kg (184 lb) 09/23/2021 10:16 AM CDT Height 177.8 cm (5' 10 ) 09/23/2021 10:16 AM CDT Body Mass Index 26.4 09/23/2021 10:16 AM CDT documented in this encounter Progress Notes * India Terrell, ZAC - 09/23/2021 10:00 AM CDT Bacilio Ramirez, 76 y.o., male is here for Hypertension (6 mo f/u) and Wax in Ear (Both ears) Medication Refills: Patient reports/denies need for medication refills. Orders Pended: no Requested Prescriptions No prescriptions requested or ordered in this encounter Home Medications Medication Sig Start Date End Date Taking? Authorizing Provider amLODIPine (NORVASC) 5 MG Tablet Take 1 tablet by mouth twice daily 09/16/21 Yes Jaylon Gudino MD hydrOXYzine (ATARAX) 25 MG Tablet TAKE 1 TABLET BY MOUTH EVERY 6 HOURS NEEDED FOR ITCHING 04/25/21 Yes Jaylon Gudino MD pravastatin (PRAVACHOL) 40 MG Tablet TAKE 2 TABLETS BY MOUTH NIGHTLY 08/29/21 Yes Jaylon Gudino MD RABEprazole (ACIPHEX) 20 MG Tablet Delayed Response TAKE 2 TABLETS BY MOUTH ONCE DAILY. TAKE 30-60 MINUTES BEFORE SUPPER. 02/25/21 Yes Jaylon Gudino MD valsartan (DIOVAN) 160 MG Tablet Take 1 tablet by mouth once daily 09/16/21 Yes Jaylon Gudino MD There are no [...] Maintenance Due Topic Date Due ??? Hepatitis B Immunization (1 of 3 - 3-dose series) Never done ??? DTaP/Tdap/Td Immunization (1 - Tdap) Never done ??? Zoster Immunization (2 of 3) 09/10/2015 Orders Pended: no The following BPA's have been addressed with the patient today: Smoking * Jaylon Gudino MD - 09/23/2021 10:00 AM CDT PROGRESS NOTE [facility] - INTERNAL MEDICINE [address] [place] [address] PHONE: [phone] FAX: [phone] 09/23/2021 NAME: Bacilio Ramirez, : 1945, Assessment ASSESSMENT & PLAN: Return in about 6 months (around 03/26/2022) for htn. Diagnoses and all orders for this visit: Essential hypertension, benign Comments: Stable. Continue current medication Orders: - CMP (COMPREHENSIVE METABOLIC PANEL); Future - LIPID PANEL; Future Mixed hyperlipidemia Comments: Continue low-cholesterol diet and pravastatin Orders: - CMP (COMPREHENSIVE METABOLIC PANEL); Future - LIPID PANEL; Future Hyperglycemia Comments: Continue low carb diet and will check HbA1c Orders: - HEMOGLOBIN A1C W/ ESTIMATED GLUCOSE; Future Abdominal aortic aneurysm (AAA) without rupture (HCC) Comments: Patient recently had MRI of lumbar spine by pain specialist which showed AAA of 2.8 centimetre Check CMP, lipid profile, HGB A1c Follow-up in 6 months, sooner if needed Chief Complaint Patient presents with ??? Hypertension 6 mo f/u ??? Wax in Ear Both ears HPI ROS Review of systems was negative, except as documented in HPI PHYSICAL EXAM VITALS: Wt Readings from Last 3 Encounters: 09/23/21 184 lb (83.5 kg) 03/25/21 179 lb (81.2 kg) 12/17/20 178 lb (80.7 kg) Temp Readings from Last 3 Encounters: 09/23/21 97.3 ??F (36.3 ??C) (Temporal) 03/25/21 97.9 ??F (36.6 ??C) (Temporal) 12/17/20 97.4 ??F (36.3 ??C) (Temporal) BP Readings from Last 3 Encounters: 09/23/21 122/66 03/25/21 140/70 12/17/20 150/72 Pulse Readings from Last 3 Encounters: 09/23/21 84 03/25/21 56 12/17/20 76 Physical Exam Vitals and nursing note reviewed. Constitutional: Appearance: Normal appearance. He is normal weight. HENT: Head: Normocephalic. Right Ear: Tympanic membrane and ear canal normal. Left Ear: Tympanic membrane and ear canal normal. Eyes: Extraocular Movements: Extraocular movements intact. [...] may have occurred. By: Jaylon Gudino MD 09/23/2021 10:35 AM CDT documented in this encounter Plan of Treatment Upcoming Encounters Date Type Department Care Team (Late st Contact Info) Description 04/25/2024 9:30 AM COMMERCIAL LINES ACCOUNT ASSISTANT [facility] [place] [address] [place] [address] Jaylon Gudino MD [address] [place] [address] documented as of this encounter Results * (ABNORMAL) HEMOGLOBIN A1C W/ ESTIMATED GLUCOSE (09/24/2021 7:44 AM CDT) HGB-A1C 6.5(H) 4.0 - 6.0 % 09/24/2021 3:36 PM CDT [facility] Est Average Glucose 139.9 mg/dL 09/24/2021 3:36 PM CDT [facility] Blood Venipuncture / Unknown 09/24/2021 7:44 AM CDT 09/24/2021 7:44 AM CDT Narrative [facility] - 09/24/2021 3:36 PM CDT HEMOGLOBIN A1C: DIABETIC PATIENTS: WELL-CONTROLLED: ?? 6.2 - 7.0 INTERMEDIATE WELL-CONTROLLED: ??7.0 - 9.0 POORLY-CONTROLLED: ??>9.0 us Jaylon Gudino MD CHEMISTRY ORDERABLES Final Result Performing Organization Address City/[facility]/ZIP Co de Phone Number [facility] [place] [address] * (ABNORMAL) LIPID PANEL (09/24/2021 7:44 AM CDT) CHOLESTEROL 172 <=200 mg/dL 09/24/2021 3:31 PM CDT [facility] TRIGLYCERIDES 288(H) <150 mg/dL 09/24/2021 3:31 PM CDT [facility] HDL CHOLESTEROL 47.4 >40 mg/dL 3:31 PM CDT [facility] LDL 67 5 - 130 mg/dL 09/24/2021 3:31 PM CDT [facility] VLDL 58(H) 5 - 55 mg/dL 09/24/2021 3:31 PM CDT [facility] CHOL/HDL RATIO 3.6 0.0 - 4.4 09/24/2021 3:31 PM CDT [facility] NON-HDL CHOLESTEROL 124.6 <130 mg/dL 09/24/2021 3:31 PM CDT [facility] Blood Venipuncture / Unknown 09/24/2021 7:44 AM CDT 09/24/2021 7:44 AM CDT us Jaylon Gudino MD CHEMISTRY ORDERABLES Final Result [facility] [place] [address] * (ABNORMAL) CMP (COMPREHENSIVE METABOLIC PANEL) (09/24/2021 7:44 AM CDT) SODIUM 139 136 - 144 mmol/L 09/24/2021 3:31 PM CDT [facility] POTASSIUM 4.1 3.5 - 5.1 mmol/L 09/24/2021 3:31 PM [facility] CHLORIDE 105 100 - 110 mmol/L 09/24/2021 3:31 PM [facility] CO2, VENOUS 24 22 - 32 mmol/L 09/24/2021 3:31 PM [facility] ANION GAP 14.1 8.0 - 20.0 mmol/L 09/24/2021 3:31 PM [facility] GLUCOSE 103(H) 70 - 99 mg/dL 09/24/2021 3:31 PM [facility] BUN 27(H) 8 - 23 mg/dL 09/24/2021 3:31 PM [facility] CREATININE, BLOOD 1.16 0.80 - 1.30 mg/dL 09/24/2021 3:31 PM [facility] BUN/CREATININE RATIO 23(H) 12 - 20 ratio 09/24/2021 3:31 PM [facility] TOTAL PROTEIN 7.1 6.0 - 8.3 g/dL 09/24/2021 3:31 PM [facility] ALBUMIN 4.7 3.5 - 5.2 g/dL 09/24/2021 3:31 PM [facility] Comment: The colormetric methods used for the determination of Albumin may lead to falsely elevated test results in patients suffering from renal failure or insufficiency due to interference with other proteins. A/G RATIO 2.0 1.0 - 2.0 09/24/2021 3:31 PM [facility] CALCIUM 9.4 8.9 - 10.3 mg/dL 09/24/2021 3:31 PM [facility] T BILI 0.4 <=1.2 mg/dL 09/24/2021 3:31 PM [facility] SGOT (AST) 35 <=40 U/L 09/24/2021 3:31 PM [facility] SGPT (ALT) 30 <=41 U/L 09/24/2021 3:31 PM CDT [facility] ALKALINE PHOSPHATASE 70 40 - 130 U/L 09/24/2021 3:31 PM CDT [facility] IS THE PATIENT REQUIRED TO BE FASTING? No 09/24/2021 3:31 PM CDT [facility] GFR, EST. NONAFRICAN >60 >=60 09/24/2021 3:31 PM CDT [facility] GFR, EST. >60 >=60 022 3:31 PM CDT [facility] Blood Venipuncture / Unknown 09/24/2021 7:44 AM CDT 09/24/2021 7:44 AM CDT us Jaylon Gudino MD CHEMISTRY ORDERABLES Final Result [facility] [place] [address] documented in this encounter Visit Diagnoses Diagnosis Essential hypertension, benign- Primary Mixed hyperlipidemia Hyperglycemia Other abnormal glucose Abdominal aortic aneurysm (AAA) without rupture (HCC) documented in this encounter Additional Health Concerns Assessment Noted Time PHQ-9 Depression Total Score: 0 04/17/19 21 9:00 AM COMMERCIAL LINES ACCOUNT ASSISTANT documented as of this encounter Care Teams Die Tripper Relationship Specialty Start Date End Date Jaylon Gudino MD [address] [place] [address] PCP - General Internal Medicine 01/16/16 documented as of this encounter
--- OUTSIDE RECORDS SUMMARY | 2024-03-03 11:34 | XMS_ITS | Encounter Summary ---
Author Organization [facility] Address [address] [place] [address] Phone Care Team Providers Care Poacher Operator Name Role Phone Jaylon Gudino MD Primary Care Provider Reason for Visit * Reason Onset Date Comments Results 08/07/2020 abdominal US Encounter Details Date Type Department Care Team (Late st Contact Info) Description 08/07/2020 Telephone [facility] - [place] [address] [place] [address] Jaylon Gudino MD [address] [facility] [place] [address] Results (abdominal US) Social History Tobacco Use Types Packs/Day Years [...] Telephone Encounter - Keysha Loya RN - 08/07/2020 3:01 PM CDT Phoned patient with US results And provider's recommendations. Patient aware and verbalized understanding. * Telephone Encounter - Keysha Loya RN - 08/07/2020 8:17 AM CDT ----- Message from Jaylon Gudino MD sent at 08/06/2020 12:12 PM CDT ----- Ultrasound of aorta shows 2.9 cm aneurysm which is very small. Repeat in 1 year documented in this encounter Plan of Treatment Upcoming Encounters Date Type Department Care Team (Late st Contact Info) Description 04/25/2024 9:30 AM FILM WRITER Office Visit [facility] - Internal Medicine - [place] [address] [place] [address] Jaylon Gudino MD [address] [place] [address] documented as of this encounter Visit Diagnoses Not on filedocumented in this encounter Additional Health Concerns Assessment Noted Time PHQ-9 Depression Total Score: 0 04/17/19 21 9:00 AM FILM WRITER documented as of this encounter Care Teams Poacher Operator Relationship Specialty Start Date End Date Jaylon Gudino MD [address] [place] [address] PCP - General Internal Medicine 01/16/16 documented as of this encounter
--- OUTSIDE RECORDS SUMMARY | 2024-03-03 11:34 | XMS_ITS | Encounter Summary ---
Author Organization [facility] Address [address] [place] [address] Phone Care Team Providers Care Patient Transition Specialist Name Role Phone Jaylon Gudino MD Primary Care Provider Encounter Details Date Type Department Care Team (Late st Contact Info) Description 04/18/2020 Telephone [facility] - Internal Medicine - [place] [address] [place] [address] Jaylon Gudino MD [address] [facility] [place] [address] Social History Tobacco Use Types Packs/Day Years Used Date Smoking Tobacco: Former Cigarettes 1 10 Smokeless Tobacco: Never Alcohol Use Standard Drinks/Week Comments No 0 (1 standard drink = 0.6 oz pur e alcohol) PHQ-2 Answer Date Recorded Total Score - Questions 1-9 0 04/02 Sex and Gender Information Value Date Recorded [...] have Coronavirus / COVID-19? No / Unsure 04/17/2020 9:46 AM AUTOMATION ANALYST documented as of this encounter Miscellaneous Notes * Telephone Encounter - India Terrell CMA - 04/18/2020 1:53 PM AUTOMATION ANALYST Spoke to patient and gave lab results. MATION ANALYST * Telephone Encounter - Keysha Loya RN - 04/18/2020 8:28 AM CST ----- Message from Jaylon Gudino MD sent at 04/17/2020 2:27 PM AUTOMATION ANALYST ----- Labs okay. Continue current medications MATION ANALYST documented in this encounter Plan of Treatment Upcoming Encounters Date Type Department Care Team (Late st Contact Info) Description 04/25/2024 9:30 AM AUTOMATION ANALYST Office Visit [facility] - Internal Medicine [facility] [address] [place] [id number] Jaylon Gudino MD [address] [place] [address] documented as of this encounter Visit Diagnoses Not on filedocumented in this encounter Additional Health Concerns Assessment Noted Time PHQ-9 Depression Total Score: 0 04/17/19 21 9:00 AM AUTOMATION ANALYST documented as of this encounter Care Teams Patient Transition Specialist Relationship Specialty Start Date End Date Jaylon Gudino MD [address] [place] [address] PCP - General Internal Medicine 01/16/16 documented as of this encounter
--- OUTSIDE RECORDS SUMMARY | 2024-03-03 11:34 | XMS_ITS | Encounter Summary ---
Author Organization [facility] [employer] Care Team Providers Care Civil Engineer'S Aide Name Role Phone Jaylon Gudino MD Primary Care Provider [phone]- [phone] Encounter Details Date Type Department Care Team (Latest Contact Info) Description 08/06/2020 Travel Social History Tobacco Use Types Packs/Day [...] st Contact Info) Description 04/25/2024 9:30 AM DIRECTOR OF NURSES REGISTRY Office Visit [facility] - Internal Medicine - [place] [address] [place] [address] Jaylon Gudino MD [address] [place] [address] documented as of this encounter Visit Diagnoses Not on filedocumented in this encounter Additional Health Concerns Assessment Noted Time PHQ-9 Depression Total Score: 0 04/17/19 21 9:00 AM DIRECTOR OF NURSES REGISTRY documented as of this encounter Care Teams Civil Engineer'S Aide Relationship Specialty Start Date End Date Jaylon Gudino MD [address] [place] [address] PCP - General Internal Medicine 01/16/16 documented as of this encounter
--- OUTSIDE RECORDS SUMMARY | 2024-03-03 11:34 | XMS_ITS | Encounter Summary ---
Author Organization [facility] [employer] Care Team Providers Care Economics Teacher Name Role Phone Jaylon Gudino MD Primary Care Provider [phone]- [phone] Encounter Details Date Type Department Care Team (Latest Contact Info) Description 04/17/2020 Travel Social History Tobacco Use Types Packs/Day [...] COVID-19? No / Unsure 04/17/2020 9:46 AM DEPUTY FIRE CHIEF documented as of this encounter Plan of Treatment Upcoming Encounters Date Type Department Care Team (Late st Contact Info) Description 04/25/2024 9:30 AM DEPUTY FIRE CHIEF Office Visit [facility] - Internal Medicine - [place] [address] [place] [id number] Jaylon Gudino MD [address] [place] [address] documented as of this encounter Visit Diagnoses Not on filedocumented in this encounter Additional Health Concerns Assessment Noted Time PHQ-9 Depression Total Score: 0 04/17/19 21 9:00 AM DEPUTY FIRE CHIEF documented as of this encounter Care Teams Economics Teacher Relationship Specialty Start Date End Date Jaylon Gudino MD [address] [place] [address] PCP - General Internal Medicine 01/16/16 documented as of this encounter
--- OUTSIDE RECORDS SUMMARY | 2024-03-03 11:34 | XMS_ITS | Encounter Summary ---
Author Organization [facility] Address [address] [place] [address] Phone Care Team Providers Care Protection Specialist Name Role Phone Jaylon Gudino MD Primary Care Provider Reason for Visit * Reason Comments Follow-up 3 mo f/u Encounter Details Date Type Department Care Team (Late st Contact Info) Description 04/17/2020 10:00 AM TOUR ACTOR [facility] - [facility] Medicine - [place] [address] [place] [address] Jaylon Gudino MD [address] [facility] [place] [address] Essential hypertension, benign (Primary Dx); Mixed hyperlipidemia; Hyperglycemia; Ear pain, bilateral; Generalized pruritus; BPH with obstruction/lower urinary tract symptoms Discharge Disposition: Discharged to home or Selfcare [...] COVID-19? No / Unsure 04/17/2020 9:46 AM TOUR ACTOR documented as of this encounter Last Filed Vital Signs Vital Sign Reading Time Taken Comments Blood Pressure 128/64 04/17/2020 9:51 AM TOUR ACTOR Pulse 56 04/17/2020 9:51 AM TOUR ACTOR Temperature 35.3 ??C (95.5 ??F) 04/17/2020 9:51 AM CS T Respiratory Rate - - Oxygen Saturation 97% 04/17/2020 9:51 AM TOUR ACTOR Inhaled Oxygen Concentration - - Weight 82.1 kg (181 lb) 04/17/2020 9:51 AM TOUR ACTOR Height - - Body Mass Index 25.97 01/16/2020 10:20 AM TOUR ACTOR documented in this encounter Progress Notes * India Terrell, SECURITIES COUNSELOR - 04/17/2020 10:00 AM CST Bacilio Ramirez, 74 y.o., male is here for Follow-up (3 mo f/u) Medication Refills: Patient reports/denies need for medication refills. Orders Pended: no Requested Prescriptions No prescriptions requested or ordered in this encounter Home Medications Medication Sig Start Date End Date Taking? Authorizing Provider amLODIPine (NORVASC) 10 MG Tablet TAKE 1 TABLET BY MOUTH EVERY DAY IN THE EVENING 02/16/20 Yes Jaylon Gudino MD finasteride (PROSCAR) 5 MG Tablet TAKE ONE TABLET BY MOUTH ONCE DAILY 12/08/19 Yes Jaylon Gudino MD losartan (COZAAR) 100 MG Tablet Take 1 tablet by mouth once daily 03/12/20 Yes Jaylon Gudino MD niacin (NIASPAN) 500 MG Tablet Controlled Release Take 500 mg by mouth every evening. Yes Provider,MD Gerson pravastatin (PRAVACHOL) 40 MG Tablet TAKE 2 TABLETS BY MOUTH NIGHTLY 02/06/20 Yes Jaylon Gudino MD RABEprazole (Aciphex) 20 MG Tablet Delayed Response Take 2 Tabs by mouth daily. 30-60 minutes AC supper, d/c prior Rx 01/16/20 Yes Jaylon Gudino MD tamsulosin (FLOMAX) 0.4 MG Capsule Take 1 Cap by mouth nightly. 01/02/20 Yes Jaylon Gudino MD There are no discontinued medications. I have reviewed the home medication list with the patient and have reconciled discrepancies. The list is accurate to the best of my knowledge. Smoking Status: Social History Tobacco Use ??? Smoking status: Former Smoker Packs/day: 1.00 Years: 10.00 Pack years: 10.00 Types: Cigarettes ??? Smokeless tobacco: Never Used Substance Use Topics ??? Alcohol use: No Alcohol/week: 0.0 oz ??? Drug use: No Smoking Cessation Counseling Given: no Health Care Maintenance: Health Maintenance Due Topic Date Due ??? DTaP/Tdap/Td Immunization (1 - Tdap) 09[birth year]04/1950 ??? SARS-COV-2 Immunization (1 of 2) 1959 ??? Pneumococcal Immunization (65+ years) (1 of 1 - PPSV23) 09/04/2008 ??? Zoster Immunization (2 of 3) 09/10/2015 Orders Pended: no The following BPA's have been addressed with the patient today: Smoking and Depression ACTOR * Jaylon Gudino MD - 04/17/2020 10:00 AM CST PROGRESS NOTE [facility] - INTERNAL MEDICINE [address] [place] [address] PHONE: [phone] FAX: [phone] 04/17/2020 NAME: Bacilio Ramirez, : 1945, Assessment ASSESSMENT & PLAN: Return in about 3 months (around 07/15/2020) for htn. Diagnoses and all orders for this visit: Essential hypertension, benign - BASIC METABOLIC PANEL W/ CALCIUM TOTAL; Future - LIPID PANEL; Future Mixed hyperlipidemia - LIPID PANEL; Future Hyperglycemia - HEMOGLOBIN A1C W/ ESTIMATED GLUCOSE; Future Ear pain, bilateral Generalized pruritus BPH with obstruction/lower urinary tract symptoms Other orders - amLODIPine (NORVASC) 5 MG Tablet; Take 1 Tablet by mouth daily. Since generalized write a started after we increased his amlodipine to 10 mg daily so will decreaseamlodipine to 5 mg daily and see if symptoms improved. If symptoms persist and consider stopping amlodipine and start different antihypertensive medication. Year wax removed from both ears. His other medical conditions are stable so will continue current medications. Follow-up in 3 months, sooner if needed. Chief Complaint Patient presents with ??? Follow-up 3 mo f/u HPI Patient is here for follow-up for hypertension other medical problems. Denies any chest pain palpitation or shortness of breath. Generalized itching persist. Seen by clinical aide and recommended to change his amlodipine since his pruritus started after increasing the dosage. He also complains of bilateral ear pain. No drainage. ROS Review of systems was negative, except as documented in HPI PHYSICAL EXAM VITALS: Wt Readings from Last 3 Encounters: 04/17/20 181 lb (82.1 kg) 01/16/20 179 lb (81.2 kg) 12/21/19 185 lb (83.9 kg) Temp Readings from Last 3 Encounters: 04/17/20 (!) 95.5 ??F (35.3 ??C) (Temporal) 01/16/20 (!) 95.6 ??F (35.3 ??C) (Temporal) 12/21/19 97.5 ??F (36.4 ??C) (Temporal) BP Readings from Last 3 Encounters: 04/17/20 128/64 01/16/20 142/70 12/21/19 144/80 Pulse Readings from Last 3 Encounters: 04/17/20 56 01/16/20 56 02/15/16 86 Physical Exam Constitutional: Appearance: Normal appearance. He is normal weight. HENT: Head: Normocephalic. Ears: Comments: Moderate amount of vaccine both ears present. Minimal inflammation of the ear canals present. Bilateral TM normal. Eyes: Extraocular Movements: Extraocular movements intact. [...] time. Psychiatric: Mood and Affect: Mood normal. Under direct vision wax removed from both ears. Patient tolerated well. Past medical, surgical, social and family history has been reviewed and updated as necessary. Medications and allergies has been reviewed and updated. Allergies Allergen Reactions ??? Sulfa Antibiotics Rash ??? Avelox [Moxifloxacin Hcl In Nacl] Unknown ??? Penicillins Hives ??? Simvastatin Other (see Comments) MUSCLE PAIN Current Outpatient Medications: ??? amLODIPine (NORVASC) 10 MG Tablet ??? amLODIPine (NORVASC) 5 MG Tablet ??? finasteride (PROSCAR) 5 MG Tablet ??? losartan (COZAAR) 100 MG Tablet ??? pravastatin (PRAVACHOL) 40 MG Tablet ??? RABEprazole (Aciphex) 20 MG Tablet Delayed Response ??? tamsulosin (FLOMAX) 0.4 MG Capsule I educated Bacilio regarding diagnoses and plan of care. He verbalizes understanding and will call the office if situation changes. Voice recognition software was utilized in this dictation. Despite proof reading, typographical errors and/or content errors may have occurred. By: Jaylon Gudino MD 04/17/2020 10:50 AM TOUR ACTOR ACTOR documented in this encounter Procedure Notes * Jaylon Gudino MD - 04/17/2020 10:00 AM CSTProcedure(s): 40082 PRO REMOVE IMPACT CERUMEN W/INSTRUMENTS-BLT Pre-Procedure Diagnose(s): Impacted cerumen of both ears Post-Procedure Diagnose(s): Impacted cerumen of both ears Under direct vision impacted cerumen removed from both ears with loop curette it was. Patient tolerated procedure well. ACTOR documented in this encounter Plan of Treatment Upcoming Encounters Date Type Department Care Team (Late st Contact Info) Description 04/25/2024 9:30 AM TOUR ACTOR Office Visit [facility] - Internal Medicine [facility] [address] [place] [address] Jaylon Gudino MD [address] [place] [address] documented as of this encounter Results * HEMOGLOBIN A1C W/ ESTIMATED GLUCOSE (04/17/2020) HGB-A1C 5.9 % Blood 04/17/2020 Result [facility] Jaylon Gudino MD CHEMISTRY ORDERABLES Final Result * LIPID PANEL (04/17/2020) TOTAL CHOLESTEROL 160 HDL 70 mg/dL LDL 52 0 - 130 mg/dL Blood 04/17/2020 Result [facility] Jaylon Gudino MD CHEMISTRY ORDERABLES Final Result * BASIC METABOLIC PANEL W/ CALCIUM TOTAL (04/17/2020) Blood Result [facility] Jaylon Gudino MD CHEMISTRY ORDERABLES Final Result documented in this encounter Visit Diagnoses Diagnosis Essential hypertension, benign- Primary Mixed hyperlipidemia Hyperglycemia Other abnormal glucose Ear pain, bilateral Generalized pruritus Unspecified pruritic disorder BPH with obstruction/lower urinary tract symptoms Hypertrophy of prostate with urinary obstruction and other lower urinary tract symptoms (LUTS) documented in this encounter Additional Health Concerns Assessment Noted Time PHQ-9 Depression Total Score: 0 04/17/19 21 9:00 AM TOUR ACTOR documented as of this encounter Care Teams Protection Specialist Relationship Specialty Start Date End Date Jaylon Gudino MD [address] [place] [address] PCP - General Internal Medicine 01/16/16 documented as of this encounter
--- OUTSIDE RECORDS SUMMARY | 2024-03-03 11:34 | XMS_ITS | Encounter Summary ---
Author Organization [facility] Address [address] [place] [address] Phone Care Team Providers Care Cross Country Truck Driver Name Role Phone Jaylon Gudino MD Primary Care Provider [phone] Reason for Visit * Reason Comments Medication Refill Encounter Details Date Type Department Care Team (Late st Contact Info) Description 06/05/2020 Refill [facility] - Internal Medicine - [place] [address] [place] [id number] Jaylon Gudino MD [address] [place] [address] Medication Refill Social History Tobacco Use Types [...] Telephone Encounter - Keysha Loya RN - 06/05/2020 10:30 AM CDT Please review and sign. documented in this encounter Plan of Treatment Upcoming Encounters Date Type Department Care Team (Late st Contact Info) Description 04/25/2024 9:30 AM RN NIGHT Office Visit [facility] - [facility] [address] [place] [address] Jaylon Gudino MD [address] [place] [address] documented as of this encounter Visit Diagnoses Not on filedocumented in this encounter Additional Health Concerns Assessment Noted Time PHQ-9 Depression Total Score: 0 04/17/19 21 9:00 AM RN NIGHT documented as of this encounter Care Teams Cross Country Truck Driver Relationship Specialty Start Date End Date Jaylon Gudino MD [address] [place] [address] PCP - General Internal Medicine 01/16/16 documented as of this encounter
--- OUTSIDE RECORDS SUMMARY | 2024-03-03 11:34 | XMS_ITS | Encounter Summary ---
Author Organization [facility] Address [address] [place] [address] Phone Care Team Providers Care Graphite Disk Assembler Name Role Phone Jaylon Gudino MD Primary Care Provider [phone] Reason for Referral * Radiology Services (Routine) - Closed Specialty Diagnoses / Procedures Referred By Contac t Referred To Contact Radiology Diagnoses Abdominal aortic aneurysm (AAA) without rupture (HCC) Procedures US AORTA HOLDEN SCALE ONLY Jaylon Gudino MD [address] [place] [address] Phone: tel: fax: Referral ID Status Reason Start Date Expiration Date Visits Re quested Visits Authorized [id number] Closed 07/26/2020 1 1 Reason for Visit * Radiology Services (Routine) - Closed Specialty Diagnoses / Procedures Referred By Contac t Referred To Contact Radiology Diagnoses Abdominal aortic aneurysm (AAA) without rupture (HCC) Procedures US AORTA HOLDEN SCALE ONLY Jaylon Gudino MD [address] [place] [address] Phone: tel: fax: Referral ID Status Reason Start Date Expiration Date Visits Re quested Visits Authorized [id number] Closed 07/26/2020 1 1 Encounter Details Date Type Department Care Team (Late st Contact Info) Description 08/06/2020 10:13 AM CDT - 08/06/2020 11:59 PM CDT Hospital Encounter [facility] Ultrasound [address] [place] [address] Jaylon Gudino MD [address] [place] [address] Discharge Disposition: Discharged to home or Selfcare [...] this encounter Medications at Time of Discharge labetalol (NORMODYNE) 100 MG Tablet Take 1 Tablet by mouth 2 times daily. 60 Tablet 3 07/26/2020 09/10/2020 losartan (COZAAR) 100 MG Tablet Take 1 tablet by mouth once daily 90 Tablet 06/05/2020 2020 pravastatin (PRAVACHOL) 40 MG Tablet TAKE 2 TABLETS BY MOUTH NIGHTLY 180 Tablet 05/04/2020 08/17/2020 RABEprazole (Aciphex) 20 MG Tablet Delayed Response Take 2 Tabs by mouth daily. 30-60 minutes AC supper, d/c prior Rx 90 Tab 1 01/16/2020 11/06/2020 documented as of this encounter Plan of Treatment Upcoming Encounters Date Type Department Care Team (Late st Contact Info) Description 04/25/2024 9:30 AM MAINTENANCE SPECIALIST Office Visit [facility] - Internal Medicine - [place] [address] [place] [address] Jaylon Gudino MD [address] [facility] [place] [address] documented as of this encounter Procedures Procedure Name Priority Date/Time Associated Diagnosis Comments US AORTA HOLDEN SCALE ONLY Routine 08/06/2020 11:22 AM CDT Abdominal aortic aneurysm (AAA) without rupture (HCC) documented in this encounter Results * US AORTA (08/06/2020 11:22 AM CDT) Anatomical Region Laterality Modality vascular N/A Ultrasound 08/06/2020 11:5 5 AM CDT Impressions 08/06/2020 11:57 AM CDT IMPRESSION: ?? Mild diffuse aneurysmal prominence of the abdominal aorta measuring a maximum of 2.9 cm. Narrative 08/06/2020 11:57 AM CDT EXAM DESCRIPTION: ?? US AORTA HOLDEN SCALE ONLY REASON FOR STUDY: ?? History of abdominal aortic aneurysm without rupture for follow-up. ??History of smoking. TECHNIQUE: ??Grayscale images acquired of the aorta and stored on PACS. Selected color Doppler and spectral images recorded. COMPARISON: ?? None available FINDINGS: ??AORTIC CALIBER MAXIMAL PROXIMAL: ??2.9 cm. MID: ??2.3 cm. DISTAL: ??2.8 cm. ILIAC DIAMETER RIGHT: ??1.1 cm. LEFT: ??1.1 cm. OTHER: ??No other significant finding. THIS IS AN ELECTRONICALLY VERIFIED FINAL REPORT 08/06/2020 11:55 AM - Electronically signed by Anthony Almeida M.D. JA: USAMA Tate: ??08/06/2020 11:52 AM T: ??08/06/2020 11:53 AM Report ID: [id number] Reading Location: ??[id number] Procedure Note Anthony Almeida MD - 08/06/2020 EXAM DESCRIPTION: US AORTA HOLDEN SCALE ONLY REASON FOR STUDY: History of abdominal aortic aneurysm without rupture for follow-up. History of smoking. TECHNIQUE: Grayscale images acquired of the aorta and stored on PACS. Selected color Doppler and spectral images recorded. COMPARISON: None available FINDINGS: AORTIC CALIBER MAXIMAL PROXIMAL: 2.9 cm. MID: 2.3 cm. DISTAL: 2.8 cm. ILIAC DIAMETER RIGHT: 1.1 cm. LEFT: 1.1 cm. OTHER: No other significant finding. THIS IS AN ELECTRONICALLY VERIFIED FINAL REPORT 08/06/2020 11:55 AM - Electronically signed by Anthony Almeida M.D. JA: USAMA Report ID: [id number] Reading Location: [id number] IMPRESSION: Mild diffuse aneurysmal prominence of the abdominal aorta measuring a maximum of 2.9 cm. us Jaylon Gudino MD IMG US ORDERABLES Final Res ult documented in this encounter Visit Diagnoses Diagnosis Abdominal aortic aneurysm (AAA) without rupture (HCC) documented in this encounter Additional Health Concerns Assessment Noted Time PHQ-9 Depression Total Score: 0 04/17/19 21 9:00 AM MAINTENANCE SPECIALIST documented as of this encounter Care Teams Graphite Disk Assembler Relationship Specialty Start Date End Date Jaylon Gudino MD [address] [place] [address] PCP - General Internal Medicine 01/16/16 documented as of this encounter
--- OUTSIDE RECORDS SUMMARY | 2024-03-03 11:34 | XMS_ITS | Encounter Summary ---
Author Organization [facility] Address [address] [place] [address] Phone Care Team Providers Care Oxygen System Tester Name Role Phone Jaylon Gudino MD Primary Care Provider [phone] Reason for Referral * Radiology Services (Routine) - Closed Specialty Diagnoses / Procedures Referred By Lilly kraft Referred To Contact Radiology Diagnoses Abdominal aortic aneurysm (AAA) without rupture (HCC) Procedures US AORTA HOLDNE SCALE ONLY Jalyon Gudino MD [address] [place] [address] Phone: tel: fax: Referral ID Status Reason Start Date Expiration Date Visits Re quested Visits Authorized [id number] Closed 07/26/2020 1 1 Reason for Visit * Reason Comments Follow-up 3 mo f/u Wax in Ear both ears Encounter Details Date Type Department Care Team (Late st Contact Info) Description 07/26/2020 9:00 AM CDT Office Visit [facility] - Internal Medicine - [place] [address] [place] [address] Jaylon Gudino MD [address] [place] [address] Essential hypertension, benign (Primary Dx); Abdominal aortic aneurysm (AAA) without rupture (HCC); Mixed hyperlipidemia; GERD without esophagitis; Impacted cerumen, left ear; Generalized pruritus Discharge Disposition: Discharged to home or Selfcare [...] have Coronavirus / COVID-19? No / Unsure 07/26/2020 8:37 AM CDT documented as of this encounter Last Filed Vital Signs Vital Sign Reading Time Taken Comments Blood Pressure 138/70 07/26/2020 8:42 AM CDT Pulse 54 07/26/2020 8:42 AM CDT Temperature 36.7 ??C (98.1 ??F) 07/26/2020 8:42 AM CD T Respiratory Rate - - Oxygen Saturation 97% 07/26/2020 8:42 AM CDT Inhaled Oxygen Concentration - - Weight 80.3 kg (177 lb) 07/26/2020 8:42 AM CDT Height 177.8 cm (5' 10 ) 07/26/2020 8:42 AM CDT Body Mass Index 25.4 07/26/2020 8:42 AM CDT documented in this encounter Progress Notes * India Terrell, COMBINATION PRESSER - 07/26/2020 9:00 AM CDT Bacilio Alvarado MaRamirez, 74 y.o., male is here for Follow-up (3 mo f/u) and Wax in Ear (both ears) Medication Refills: Patient reports/denies need for medication refills. Orders Pended: no Requested Prescriptions No prescriptions requested or ordered in this encounter Home Medications Medication Sig Start Date End Date Taking? Authorizing Provider amLODIPine (NORVASC) 5 MG Tablet Take 1 Tablet by mouth 2 times daily. 06/06/20 Yes Jaylon Gudino MD finasteride (PROSCAR) 5 MG Tablet Take 1 tablet by mouth once daily Patient not taking: Reported on 07/26/2020 05/28/20 Jaylon Gudino MD losartan (COZAAR) 100 MG Tablet Take 1 tablet by mouth once daily 06/05/20 Yes Jaylon Gudino MD pravastatin (PRAVACHOL) 40 MG Tablet TAKE 2 TABLETS BY MOUTH NIGHTLY 05/04/20 Yes Jaylon Gudino MD RABEprazole (Aciphex) 20 MG Tablet Delayed Response Take 2 Tabs by mouth daily. 30-60 minutes AC supper, d/c prior Rx 01/16/20 Yes Jaylon Gudino MD tamsulosin (FLOMAX) 0.4 MG Capsule Take 1 Cap by mouth nightly. Patient not taking: Reported on 07/26/2020 01/02/20 Jaylon Gudino MD There are no discontinued [...] today: Smoking * Jaylon Gudino MD - 07/26/2020 9:00 AM CDT PROGRESS NOTE [facility] - INTERNAL MEDICINE [address] [place] [address] PHONE: [phone] FAX: [phone] 07/26/2020 NAME: Bacilio Ramirez, : 1945, Assessment ASSESSMENT & PLAN: Return in about 4 weeks (around 08/23/2020) for htn. Diagnoses and all orders for this visit: Essential hypertension, benign Comments: Change amlodipine to labetalol 100 mg b.i.d. and see that helps in his pruritus. Abdominal aortic aneurysm (AAA) without rupture (HCC) Comments: Side of for follow-up ultrasound. Orders: - US AORTA HOLDEN SCALE ONLY; Future Mixed hyperlipidemia Comments: Stable. Continue current medications GERD without esophagitis Comments: Stable. Continue current medications Impacted cerumen, left ear Comments: Wax removed from left ear. Patient tolerated well. Generalized pruritus Comments: Change amlodipine to labetalol and see it helps in his generalized pruritus. Other orders - labetalol (NORMODYNE) 100 MG Tablet; Take 1 Tablet by mouth 2 times daily. Follow-up in 1 month, sooner if needed Chief Complaint Patient presents with ??? Follow-up 3 mo f/u ??? Wax in Ear both ears HPI Patient is here for follow-up for hypertension other medical problems. Complains of a clogged years. Denies any sinus congestion no sore throat. Also continue have generalized itching which gets worse in the afternoon. 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 No definite cause has been identified. But claims that after increasing amlodipine to twice a day last years he itching still has started. No abdominal pain nausea vomiting. No chest pain palpitation or shortness of breath. Tolerating medications well. ROS Review of systems was negative, except as documented in HPI PHYSICAL EXAM VITALS: Wt Readings from Last 3 Encounters: 07/26/20 177 lb (80.3 kg) 04/17/20 181 lb (82.1 kg) 01/16/20 179 lb (81.2 kg) Temp Readings from Last 3 Encounters: 07/26/20 98.1 ??F (36.7 ??C) (Temporal) 04/17/20 (!) 95.5 ??F (35.3 ??C) (Temporal) 01/16/20 (!) 95.6 ??F (35.3 ??C) (Temporal) BP Readings from Last 3 Encounters: 07/26/20 138/70 04/17/20 128/64 01/16/20 142/70 Pulse Readings from Last 3 Encounters: 07/26/20 54 04/17/20 56 01/16/20 56 Physical Exam Constitutional: Appearance: Normal appearance. He is normal weight. HENT: Head: Normocephalic. Ears: Comments: Right ear canal and tympanic membranes are normal. Impacted wax in the left ear present. Wax removed. Tympanic membrane well visualized. Year canal is normal. Eyes: Extraocular Movements: Extraocular movements intact. [...] Comments) MUSCLE PAIN Current Outpatient Medications: ??? labetalol (NORMODYNE) 100 MG Tablet ??? losartan (COZAAR) 100 MG [...] may have occurred. By: Jaylon Gudino MD 07/26/2020 9:08 AM CDT documented in this encounter Procedure Notes * Jaylon Gudino MD - 07/26/2020 9:00 AM CDTProcedure(s): REMOVE IMPACTED EAR WAX UNI Pre-Procedure Diagnose(s): Impacted cerumen of left ear Impacted wax removed from left ear with ear lift carotids. Patient tolerated procedure well. documented in this encounter Plan of Treatment Upcoming Encounters Date Type Department Care Team (Late st Contact Info) Description 04/25/2024 9:30 AM ROOFER GYPSUM Office Visit [facility] - Internal Medicine - [place] [address] [place] [address] Jaylon Gudino MD [address] [place] [address] documented as of this encounter Results * US AORTA (08/06/2020 [...] signed by Anthony Almeida M.D. JA: USAMA D: ??08/06/2020 11:52 AM T: ??08/06/2020 11:53 AM Report ID: [id number] Reading Location: ??[id number] Procedure Note Anthony Almeida MD - 08/06/2020 [...] Anthony Almeida M.D. JA: USAMA Report ID: [id number] Reading Location: [id number] IMPRESSION: Mild diffuse aneurysmal prominence of the abdominal aorta measuring a maximum of 2.9 cm. Jaylon Gudino MD [facility] [place] ORDERABLES Final Res ult documented in this encounter Visit Diagnoses Diagnosis Essential hypertension, benign- Primary Abdominal aortic aneurysm (AAA) without rupture (HCC) Mixed hyperlipidemia GERD without esophagitis Esophageal reflux Impacted cerumen, left ear Generalized pruritus Unspecified pruritic disorder Abdominal aortic aneurysm (AAA) without rupture (HCC) documented in this encounter Additional Health Concerns Assessment Noted Time PHQ-9 Depression Total Score: 0 04/17/19 21 9:00 AM ROOFER GYPSUM documented as of this encounter Care Teams Oxygen System Tester Relationship Specialty Start Date End Date Jaylon Gudino MD [address] [place] [address] PCP - General Internal Medicine 01/16/16 documented as of this encounter
--- OUTSIDE RECORDS SUMMARY | 2024-03-03 11:34 | XMS_ITS | Encounter Summary ---
Author Organization [facility] [employer] Care Team Providers Care Model And Pattern Supervisor Name Role Phone Jaylon Gudino MD Primary Care Provider [phone]- [phone] Encounter Details Date Type Department Care Team (Latest Contact Info) Description 07/26/2020 Travel Social History Tobacco Use Types Packs/Day [...] st Contact Info) Description 04/25/2024 9:30 AM COMMUNITY LIAISON OFFICER Office Visit [facility] Medical Group - Internal Medicine - [place] [address] [place] [address] Jaylon Gudino MD [address] [place] [address] documented as of this encounter Visit Diagnoses Not on filedocumented in this encounter Additional Health Concerns Assessment Noted Time PHQ-9 Depression Total Score: 0 04/17/19 21 9:00 AM COMMUNITY LIAISON OFFICER documented as of this encounter Care Teams Model And Pattern Supervisor Relationship Specialty Start Date End Date Jaylon Gudino MD [address] [place] [address] PCP - General Internal Medicine 01/16/16 documented as of this encounter
--- OUTSIDE RECORDS SUMMARY | 2024-03-03 11:34 | XMS_ITS | Encounter Summary ---
Author Organization [facility] Address [address] [place] [address] Phone Care Team Providers Care Oracle Applications Developer Name Role Phone Jaylon Gudino MD Primary Care Provider [phone] Reason for Visit * Reason Comments Medication Refill Encounter Details Date Type Department Care Team (Late st Contact Info) Description 08/17/2020 Refill [facility] - Internal Medicine - [place] [address] [place] [address] Jaylon Gudino MD [address] [place] [address] Medication Refill Social History Tobacco Use Types [...] st Contact Info) Description 04/25/2024 9:30 AM SAT ACT INSTRUCTOR Office Visit [facility] - Internal [facility] [place] [address] [place] [address] Jaylon Gudino MD [address] [place] [address] documented as of this encounter Visit Diagnoses Not on filedocumented in this encounter Additional Health Concerns Infection Onset Date Last Indicated Resolved Time COVID - 19 02/06/2022 02/06/2022 02/16/2022 12:1 6 AM SAT ACT INSTRUCTOR Assessment Noted Time PHQ-9 Depression Total Score: 0 04/17/19 21 9:00 AM SAT ACT INSTRUCTOR documented as of this encounter Care Teams Oracle Applications Developer Relationship Specialty Start Date End Date Jaylon Gudino MD [address] [place] [address] PCP - General Internal Medicine 01/16/16 documented as of this encounter
--- OUTSIDE RECORDS SUMMARY | 2024-03-03 11:34 | XMS_ITS | Encounter Summary ---
Author Organization [facility] Address [address] [place] [address] Phone Care Team Providers Care Multi Township Assessor Name Role Phone Jaylon Gudino MD Primary Care Provider Encounter Details Date Type Department Care Team (Late st Contact Info) Description 06/06/2020 Telephone [facility] - [facility] - [place] [address] [place] [address] Jaylon Gudino MD [address] [place] [address] Social History Tobacco Use Types [...] Telephone Encounter - Jaylon Gudino MD - 06/06/2020 5:17 PM CDT Amlodipine 5 mg 1 b.i.d. Rx sent * Telephone Encounter - Keysha Loya RN - 06/06/2020 2:24 PM CDT ----- Message from May sent at 06/06/2020 1:34 PM CDT ----- Regarding: PATIENT MEDICAL QUESTION Doctor decreased patients amlodipine 5 mg from 2 x day to 1 x day due to a reaction he was having to something. Patient said that was not the problem so he would like doctor to send a new prescription for amlodipine 5 mg 2 x day Pharmacy: [facility] [address] [place] [address] Call back # [phone] documented in this encounter Plan of Treatment Upcoming Encounters Date Type Department Care Team (Late st Contact Info) Description 04/25/2024 9:30 AM NFL PLAYER Office Visit [facility] - Internal Medicine [facility] [address] [place] [address] Jaylon Gudino MD [address] [place] [address] documented as of this encounter Visit Diagnoses Not on filedocumented in this encounter Additional Health Concerns Assessment Noted Time PHQ-9 Depression Total Score: 0 04/17/19 21 9:00 AM NFL PLAYER documented as of this encounter Care Teams Multi Township Assessor Relationship Specialty Start Date End Date Jaylon Gudino MD [address] [place] [address] PCP - General Internal Medicine 01/16/16 documented as of this encounter
--- OUTSIDE RECORDS SUMMARY | 2024-03-03 11:34 | XMS_ITS | Encounter Summary ---
Author Organization [facility] Address [address] [place] [address] Phone Care Team Providers Care Simulation Educator Name Role Phone Jaylon Gudino MD Primary Care Provider Reason for Visit * Reason Comments Medication Refill Encounter Details Date Type Department Care Team (Late st Contact Info) Description 05/28/2020 Refill [facility] - Internal Medicine - [place] [address] [place] [phone] Jaylon Gudino MD [address] [place] [address] Medication Refill Social History Tobacco Use Types [...] Telephone Encounter - Keysha Loya RN - 05/28/2020 7:54 AM CDT Please review and sign. documented in this encounter Plan of Treatment Upcoming Encounters Date Type Department Care Team (Late st Contact Info) Description 04/25/2024 9:30 AM VIDEOGRAPHER [facility] Visit [facility] [address] [place] [address] Jaylon Gudino MD [address] [place] [address] documented as of this encounter Visit Diagnoses Not on filedocumented in this encounter Additional Health Concerns Assessment Noted Time PHQ-9 Depression Total Score: 0 04/17/19 21 9:00 AM VIDEOGRAPHER documented as of this encounter Care Teams Simulation Educator Relationship Specialty Start Date End Date Jaylon Gudino MD [address] [place] [address] PCP - General Internal Medicine 01/16/16 documented as of this encounter
--- OUTSIDE RECORDS SUMMARY | 2024-03-03 11:34 | XMS_ITS | Encounter Summary ---
Author Organization [facility] Address [address] [place] [address] Phone Care Team Providers Care Body Work Auto Trimmer Name Role Phone Jaylon Gudino MD Primary Care Provider Reason for Visit * Reason Comments Medication Refill Encounter Details Date Type Department Care Team (Late st Contact Info) Description 05/03/2020 Refill [facility] Medical Group - Internal Medicine - [place] [address] [place] [phone] Jaylon Gudino MD [address] [place] [address] Medication Refill Social History Tobacco Use Types [...] COVID-19? No / Unsure 04/17/2020 9:46 AM PROCESSING SUPERVISOR documented as of this encounter Miscellaneous Notes * Telephone Encounter - Keysha Loya RN - 05/04/2020 8:35 AM CST Please review and sign. ESSING SUPERVISOR documented in this encounter Plan of Treatment Upcoming Encounters Date Type Department Care Team (Late st Contact Info) Description 04/25/2024 9:30 AM PROCESSING SUPERVISOR [facility] Visit [facility] - [facility] - [place] [address] [place] [address] Jaylon Gudino MD [address] [place] [address] documented as of this encounter Visit Diagnoses Not on filedocumented in this encounter Additional Health Concerns Assessment Noted Time PHQ-9 Depression Total Score: 0 04/17/19 21 9:00 AM PROCESSING SUPERVISOR documented as of this encounter Care Teams Body Work Auto Trimmer Relationship Specialty Start Date End Date Jaylon Gudino MD [address] [place] [address] PCP - General Internal Medicine 01/16/16 documented as of this encounter
--- OUTSIDE RECORDS SUMMARY | 2024-03-03 11:35 | XMS_ITS | Encounter Summary ---
Author Organization [facility] Address [address] [place] [address] Phone Care Team Providers Care Special Delivery Carrier Name Role Phone Jaylon Gudino MD Primary Care Provider Encounter Details Date Type Department Care Team (Late st Contact Info) Description 01/06/2020 Telephone [facility] - [facility] - [place] [address] [place] [address] Jaylon Gudino MD [address] [facility] [place] [address] Social History Tobacco Use Types Packs/Day Years Used Date Smoking Tobacco: Former Cigarettes 1 10 Smokeless Tobacco: Never Alcohol Use Standard Drinks/Week Comments No 0 (1 standard drink = 0.6 oz pur e alcohol) PHQ-2 Answer Date Recorded Total Score - Questions 1-9 0 12/01 Sex and Gender Information Value Date Recorded [...] have Coronavirus / COVID-19? No / Unsure 12/21/2019 9:07 AM CDT documented as of this encounter Miscellaneous Notes * Telephone Encounter - Jaylon Gudino MD - 01/06/2020 4:33 PM DENTAL APPLIANCE REPAIRER Sulfa allergy added [place] APPLIANCE REPAIRER documented in this encounter Plan of Treatment Upcoming Encounters Date Type Department Care Team (Late st Contact Info) Description 04/25/2024 9:30 AM DENTAL APPLIANCE REPAIRER Office Visit [facility] - Internal Medicine - [place] [address] [place] [address] Jaylon Gudino MD [address] [place] [address] documented as of this encounter Visit Diagnoses Not on filedocumented in this encounter Additional Health Concerns Assessment Noted Time PHQ-9 Depression Total Score: 0 12/21/19 20 9:00 AM CDT documented as of this encounter Care Teams Special Delivery Carrier Relationship Specialty Start Date End Date Jaylon Gudino MD [address] [place] [address] PCP - General Internal Medicine 01/16/16 documented as of this encounter
--- OUTSIDE RECORDS SUMMARY | 2024-03-03 11:35 | XMS_ITS | Encounter Summary ---
Author Organization [facility] [employer] Care Team Providers Care Blunger Loader Name Role Phone Jaylon Gudino MD Primary Care Provider [phone]- [phone] Encounter Details Date Type Department Care Team (Latest Contact Info) Description 12/21/2019 Travel Social History Tobacco Use Types Packs/Day [...] st Contact Info) Description 04/25/2024 9:30 AM PAVER Office Visit [facility] Medical Group - Internal Medicine - [place] [address] [place] [address] Jaylon Gudino MD [address] [place] [address] documented as of this encounter Visit Diagnoses Not on filedocumented in this encounter Additional Health Concerns Assessment Noted Time PHQ-9 Depression Total Score: 0 12/21/19 20 9:00 AM CDT documented as of this encounter Care Teams Blunger Loader Relationship Specialty Start Date End Date Jaylon Gudino MD [address] [place] [address] PCP - General Internal Medicine 01/16/16 documented as of this encounter
--- OUTSIDE RECORDS SUMMARY | 2024-03-03 11:35 | XMS_ITS | Encounter Summary ---
Author Organization [facility] Address [address] [place] [address] Phone Care Team Providers Care Crab Butcher Name Role Phone Jaylon Gudino MD Primary Care Provider Reason for Visit * Reason Comments Medication Refill Encounter Details Date Type Department Care Team (Late st Contact Info) Description 03/10/2020 Refill [facility] Medical Group - Internal Medicine - [place] [address] [place] [address] Jaylon Gudino MD [address] [place] [address] Medication Refill Social History Tobacco Use Types [...] Telephone Encounter - Keysha Loya RN - 03/12/2020 8:01 AM CST Please review and sign. ENT CUTTER documented in this encounter Plan of Treatment Upcoming Encounters Date Type Department Care Team (Late st Contact Info) Description 04/25/2024 9:30 AM GARMENT CUTTER Office Visit [facility] - Internal Medicine [place] [address] [place] [address] Jaylon Gudino MD [address] [place] [address] documented as of this encounter Visit Diagnoses Not on filedocumented in this encounter Additional Health Concerns Assessment Noted Time PHQ-9 Depression Total Score: 0 12/21/19 20 9:00 AM CDT documented as of this encounter Care Teams Crab Butcher Relationship Specialty Start Date End Date Jaylon Gudino MD [address] [place] [address] PCP - General Internal Medicine 01/16/16 documented as of this encounter
--- OUTSIDE RECORDS SUMMARY | 2024-03-03 11:35 | XMS_ITS | Encounter Summary ---
Author Organization [facility] Address [address] [place] [address] Phone Care Team Providers Care Activity Therapy Specialist Name Role Phone Jaylon Gudino MD Primary Care Provider Encounter Details Date Type Department Care Team (Late st Contact Info) Description 01/02/2020 Refill [facility] - [place] [address] [place] [address] Jaylon Gudino MD [address] [facility] [facility] [place] [address] Social History Tobacco Use Types [...] encounter Miscellaneous Notes * Telephone Encounter - Burbank, Keysha A, RN - 01/02/2020 3:40 PM CST Order pended SORTER * Telephone Encounter - Keysha Loya RN - 01/02/2020 3:40 PM CST ----- Message from Amy Lou sent at 01/02/2020 3:19 PM BOOK SORTER ----- Regarding: new script DON NEEDS A NEW PRESCRIPTION FOR TAMSOLUTION HCL .4 MG (90 DAY SUPPLY) PHARMACY: [facility] Call back number:[phone] SORTER documented in this encounter Plan of Treatment Upcoming Encounters Date Type Department Care Team (Late st Contact Info) Description 04/25/2024 9:30 AM BOOK SORTER Office Visit [facility] - [facility] [address] [place] [address] Jaylon Gudino MD [address] [place] [address] documented as of this encounter Visit Diagnoses Not on filedocumented in this encounter Additional Health Concerns Assessment Noted Time PHQ-9 Depression Total Score: 0 12/21/19 20 9:00 AM CDT documented as of this encounter Care Teams Activity Therapy Specialist Relationship Specialty Start Date End Date Jaylon Gudino MD [address] [place] [address] PCP - General Internal Medicine 01/16/16 documented as of this encounter
--- OUTSIDE RECORDS SUMMARY | 2024-03-03 11:35 | XMS_ITS | Encounter Summary ---
Author Organization [facility] Address [address] [place] [address] Phone Care Team Providers Care Patrol Deputy Sheriff Name Role Phone Jaylon Gudino MD Primary Care Provider Reason for Visit * Reason Comments Medication Refill Encounter Details Date Type Department Care Team (Late st Contact Info) Description 02/03/2020 Refill [facility] Medical Group - Internal Medicine - [place] [address] [place] [phone] Jaylon Gudino MD [address] [place] [address] Medication Refill Social History Tobacco Use Types [...] have Coronavirus / COVID-19? No / Unsure 01/16/2020 10:17 AM SATELLITE SPECIALIST documented as of this encounter Miscellaneous Notes * Telephone Encounter - Keysha Loya RN - 02/06/2020 7:43 AM CST Please review and sign. LLITE SPECIALIST documented in this encounter Plan of Treatment Upcoming Encounters Date Type Department Care Team (Late st Contact Info) Description 04/25/2024 9:30 AM SATELLITE SPECIALIST [facility] - [facility] [place] [address] [place] [address] Jaylon Gudino MD [address] [place] [address] documented as of this encounter Visit Diagnoses Not on filedocumented in this encounter Additional Health Concerns Assessment Noted Time PHQ-9 Depression Total Score: 0 12/21/19 20 9:00 AM CDT documented as of this encounter Care Teams Patrol Deputy Sheriff Relationship Specialty Start Date End Date Jaylon Gudino MD [address] [place] [address] PCP - General Internal Medicine 01/16/16 documented as of this encounter
--- OUTSIDE RECORDS SUMMARY | 2024-03-03 11:35 | XMS_ITS | Encounter Summary ---
Author Organization [facility] [employer] Care Team Providers Care Hvac Controls Technician Name Role Phone Jaylon Gudino MD Primary Care Provider [phone]- [phone] Encounter Details Date Type Department Care Team (Latest Contact Info) Description 01/16/2020 Travel Social History Tobacco Use Types Packs/Day [...] COVID-19? No / Unsure 01/16/2020 10:17 AM ARTISTIC ASSOCIATE documented as of this encounter Plan of Treatment Upcoming Encounters Date Type Department Care Team (Late st Contact Info) Description 04/25/2024 9:30 AM ARTISTIC ASSOCIATE Office Visit [facility] Medical Group - Internal Medicine - [place] [address] [place] [phone] Jaylon Gudino MD [address] [place] [address] documented as of this encounter Visit Diagnoses Not on filedocumented in this encounter Additional Health Concerns Assessment Noted Time PHQ-9 Depression Total Score: 0 12/21/19 20 9:00 AM CDT documented as of this encounter Care Teams Hvac Controls Technician Relationship Specialty Start Date End Date Jaylon Gudino MD [address] [place] [address] PCP - General Internal Medicine 01/16/16 documented as of this encounter
--- OUTSIDE RECORDS SUMMARY | 2024-03-03 11:35 | XMS_ITS | Encounter Summary ---
Author Organization [facility] Address [address] [place] [address] Phone Care Team Providers Care Packer Dried Beef Name Role Phone Jaylon Gudino MD Primary Care Provider Reason for Visit * Reason Comments Follow-up 3 mo f/u Wax in Ear both ears Encounter Details Date Type Department Care Team (Late st Contact Info) Description 01/16/2020 10:30 AM FABRICATION SPECIALIST Office Visit [facility] - Internal Medicine - [place] [address] [place] [address] Jaylon Gudino MD [address] [facility] [address] Essential hypertension, benign (Primary Dx); Mixed hyperlipidemia; GERD without esophagitis; BPH with obstruction/lower urinary tract symptoms Discharge [...] COVID-19? No / Unsure 01/16/2020 10:17 AM FABRICATION SPECIALIST documented as of this encounter Last Filed Vital Signs Vital Sign Reading Time Taken Comments Blood Pressure 142/70 01/16/2020 10:20 AM FABRICATION SPECIALIST Pulse 56 01/16/2020 10:20 AM FABRICATION SPECIALIST Temperature 35.3 ??C (95.6 ??F) 01/16/2020 10:[address] Respiratory Rate - - Oxygen Saturation - - Inhaled Oxygen Concentration - - Weight 81.2 kg (179 lb) 01/16/2020 10:20 AM FABRICATION SPECIALIST Height 177.8 cm (5' 10 ) 01/16/2020 10:20 AM FABRICATION SPECIALIST Body Mass Index 25.68 01/16/2020 10:20 AM FABRICATION SPECIALIST documented in this encounter Progress Notes * India Terrell, GASATERIA ATTENDANT - 01/16/2020 10:30 AM CST Bacilio Ramirez, 74 y.o., male is here for Follow-up (3 mo f/u) and Wax in Ear (both ears) Medication Refills: Patient reports/denies need for medication refills. Orders Pended: no Requested Prescriptions No prescriptions requested or ordered in this encounter Home Medications Medication Sig Start Date End Date Taking? Authorizing Provider acetaminophen-codeine (TYLENOL #3) 300-30 MG Tablet Take 1-2 Tabs by mouth every 4 hours as needed for Pain. Patient not taking: Reported on 01/16/2020 02/01/16 Juan Rubio MD amLODIPine (NORVASC) 5 MG Tablet Take by mouth. Yes ProviderGerson MD finasteride (PROSCAR) 5 MG Tablet TAKE ONE TABLET BY MOUTH ONCE DAILY 12/08/19 Yes Jaylon Gudino MD losartan (COZAAR) 100 MG Tablet TAKE ONE TABLET BY MOUTH ONCE DAILY 12/09/19 Yes Jaylon Gudino MD niacin (NIASPAN) 500 MG Tablet Controlled Release Take 500 mg by mouth every evening. Yes Gerson Tatum MD pravastatin (PRAVACHOL) 40 MG Tablet TAKE TWO TABLETS BY MOUTH NIGHTLY 11/09/19 Yes Jaylon Gudino MD Probiotic Product (PROBIOTIC & ACIDOPHILUS EX ST) Capsule Take 1 daily by mouth while on antibiotics and for at lesat 5 days after completing the antibiotic course. Patient not taking: Reported on 01/16/2020 02/01/16 Juan Rubio MD RABEprazole (ACIPHEX) 20 MG Tablet Delayed Response Take 40 mg by mouth daily. 30-60 minutes AC supper, d/c prior Rx Yes Provider, MD Gerson tamsulosin (FLOMAX) 0.4 MG Capsule Take 1 [...] DTaP/Tdap/Td Immunization (1 - Tdap) 09[birth year]04/1950 ??? Pneumococcal Immunization (65+ years) (1 of 1 - PPSV23) 09/04/2008 ??? Zoster Immunization (2 of 3) 09/10/2015 ??? Influenza Immunization (1) 11/01/2019 Orders Pended: no The following BPA's have been addressed with the patient today: Smoking ICATION SPECIALIST * Jaylon Gudino MD - 01/16/2020 10:30 AM CST PROGRESS NOTE [facility] - INTERNAL MEDICINE [address] [place] [address] 01/16/2020 Bacilio Ramirez 1945 Chief Complaint Patient presents with ??? Follow-up 3 mo f/u ??? Wax in Ear both ears Patient is here for follow-up for hypertension. Also follow-up for ear pain. Patient is feeling well. No ear pain any more. Denies any chest pain, palpitation, shortness of breath. Tolerating medications well. His blood pressure at times stays above 140/80. ROS Review of Systems Constitutional: Negative. HENT: Negative. Eyes: Negative. Respiratory: Negative. Cardiovascular: Negative. Gastrointestinal: Negative. Endocrine: Negative. Genitourinary: Negative. Musculoskeletal: Negative. Skin: Negative. Allergic/Immunologic: Negative. Neurological: Negative. Hematological: Negative. Psychiatric/Behavioral: Negative. PHYSICAL EXAM Physical Exam Constitutional: Appearance: Normal appearance. He is normal weight. HENT: Head: Normocephalic. Right Ear: Tympanic membrane and ear canal normal. Left Ear: Tympanic membrane and ear canal normal. Eyes: Extraocular Movements: Extraocular movements intact. Conjunctiva/sclera: Conjunctivae normal. Pupils: Pupils are equal, round, and reactive to light. Neck: Musculoskeletal: Normal range of motion and neck supple. Cardiovascular: Rate and Rhythm: Normal rate and regular rhythm. Pulses: Normal pulses. Heart sounds: Normal heart sounds. Pulmonary: Effort: Pulmonary effort is normal. Breath sounds: Normal breath sounds. Abdominal: General: Abdomen is flat. Bowel sounds are normal. Palpations: Abdomen is soft. Musculoskeletal: Normal range of motion. Skin: General: Skin is warm and dry. Neurological: General: No focal deficit present. Mental Status: He is alert and oriented to person, place, and time. Psychiatric: Mood and Affect: Mood normal. Lab results from 10/18/2019 reviewed and discussed with the patient. Past medical, surgical, social and family history has been reviewed and updated as necessary. Medications and allergies has been reviewed and updated. Allergies Allergen Reactions ??? Sulfa Antibiotics Rash ??? Avelox [Moxifloxacin Hcl In Nacl] Unknown ??? Penicillins Hives ??? Simvastatin Other (see Comments) MUSCLE PAIN Patient Active Problem List Diagnosis Date Noted ??? Essential hypertension, benign 01/16/2020 ??? BPH with obstruction/lower urinary tract symptoms 01/16/2020 ??? Abdominal aortic aneurysm (AAA) without rupture (HCC) 12/21/2019 ??? History of left-sided carotid endarterectomy 12/21/2019 ??? PNAR (perennial non-allergic rhinitis) 01/17/2016 ??? Nasal turbinate hypertrophy ??? Chronic laryngitis ??? Laryngopharyngeal reflux (LPR) ??? GERD without esophagitis 05/05/2011 ??? Pain in right shoulder 05/05/2011 ??? Mixed hyperlipidemia 12/11/2009 Current Outpatient Medications: ??? amLODIPine (NORVASC) 10 MG Tablet ??? finasteride (PROSCAR) 5 MG Tablet ??? losartan (COZAAR) 100 MG Tablet ??? niacin (NIASPAN) 500 MG Tablet Controlled Release ??? pravastatin (PRAVACHOL) 40 MG Tablet ??? RABEprazole (Aciphex) 20 MG Tablet Delayed Response ??? tamsulosin (FLOMAX) 0.4 MG Capsule Assessment ASSESSMENT & PLAN: Return in about 3 months (around 04/17/2020). Diagnoses and all orders for this visit: Essential hypertension, benign Mixed hyperlipidemia GERD without esophagitis BPH with obstruction/lower urinary tract symptoms Other orders - amLODIPine (NORVASC) 10 MG Tablet; Take 1 Tab by mouth daily. - RABEprazole (Aciphex) 20 MG Tablet Delayed Response; Take 2 Tabs by mouth daily. 30-60 minutes ACsupper, d/c prior Rx Will increase amlodipine to 10 mg daily. Continue other medications. Prescriptions refilled. Follow-up in 3 months sooner if needed I educated Bacilio regarding diagnoses and plan of care. He verbalizes understanding and will call the office if situation changes. Voice recognition software was utilized in this dictation. Despite proof reading, typographical errors and/or content errors may have occurred. By: Jaylon Gudino MD 01/16/2020 10:44 AM FABRICATION SPECIALIST ICATION SPECIALIST documented in this encounter Plan of Treatment Upcoming Encounters Date Type Department Care Team (Late st Contact Info) Description 04/25/2024 9:30 AM FABRICATION SPECIALIST Office Visit [facility] - Internal Medicine - [place] [address] [place] [address] Jaylon Gudino MD [address] [place] [address] documented as of this encounter Visit Diagnoses Diagnosis Essential hypertension, benign- Primary Mixed hyperlipidemia GERD without esophagitis Esophageal reflux BPH with obstruction/lower urinary tract symptoms Hypertrophy of prostate with urinary obstruction and other lower urinary tract symptoms (LUTS) documented in this encounter Additional Health Concerns Assessment Noted Time PHQ-9 Depression Total Score: 0 12/21/19 20 9:00 AM CDT documented as of this encounter Care Teams Packer Dried Beef Relationship Specialty Start Date End Date Jaylon Gudino MD [address] [place] [address] PCP - General Internal Medicine 01/16/16 documented as of this encounter
--- OUTSIDE RECORDS SUMMARY | 2024-03-03 11:35 | XMS_ITS | Encounter Summary ---
Author Organization [facility] Address [address] [place] [address] Phone Care Team Providers Care Appeals Board Referee Name Role Phone Jaylon Gudino MD Primary Care Provider Reason for Visit * Reason Comments Medication Refill Encounter Details Date Type Department Care Team (Late st Contact Info) Description 02/16/2020 Refill [facility] - Internal Medicine - [place] [address] [place] [phone] Jaylon Gudino MD [address] [place] [address] Medication Refill Social History Tobacco Use Types [...] Telephone Encounter - Keysha Loya RN - 02/16/2020 8:08 AM CST Please review and sign. K LETTERER documented in this encounter Plan of Treatment Upcoming Encounters Date Type Department Care Team (Late st Contact Info) Description 04/25/2024 9:30 AM STOCK LETTERER [facility] - [facility] [place] [address] [place] [address] Jaylon Gudino MD [address] [place] [address] documented as of this encounter Visit Diagnoses Not on filedocumented in this encounter Additional Health Concerns Assessment Noted Time PHQ-9 Depression Total Score: 0 12/21/19 20 9:00 AM CDT documented as of this encounter Care Teams Appeals Board Referee Relationship Specialty Start Date End Date Jaylon Gudino MD [address] [place] [address] PCP - General Internal Medicine 01/16/16 documented as of this encounter
--- OUTSIDE RECORDS SUMMARY | 2024-03-03 11:35 | XMS_ITS | Encounter Summary ---
Author Organization [facility] Address [address] [place] [address] Phone Care Team Providers Care Salesperson Women'S Dresses Name Role Phone Jaylon Gudino MD Primary Care Provider [phone] Reason for Visit * Reason Comments Medication Refill Encounter Details Date Type Department Care Team (Late st Contact Info) Description 01/02/2020 Refill [facility] - Internal Medicine - [place] [address] [place] [phone] Jaylon Gudino MD [address] [place] [address] Medication Refill Social History Tobacco Use Types [...] Encounter - Keysha Loya RN - 01/02/2020 11:06 AM COOKER HELPER Please review and sign. ER HELPER documented in this encounter Plan of Treatment Upcoming Encounters Date Type Department Care Team (Late st Contact Info) Description 04/25/2024 9:30 AM COOKER HELPER Office Visit [facility] - Internal Medicine - [place] [address] [place] [address] Jaylon Gudino MD [address] [place] [address] documented as of this encounter Visit Diagnoses Not on filedocumented in this encounter Additional Health Concerns Assessment Noted Time PHQ-9 Depression Total Score: 0 12/21/19 20 9:00 AM CDT documented as of this encounter Care Teams Salesperson Women'S Dresses Relationship Specialty Start Date End Date Jaylon Gudino MD [address] [place] [address] PCP - General Internal Medicine 01/16/16 documented as of this encounter
--- OUTSIDE RECORDS SUMMARY | 2024-03-03 11:36 | XMS_ITS | Encounter Summary ---
Author Organization [facility] Address [address] [place] [address] Phone Care Team Providers Care Vp Human Resources Name Role Phone Jaylon Guidno MD Primary Care Provider Reason for Visit * Reason Comments Ringing in Ear both ears Encounter Details Date Type Department Care Team (Late st Contact Info) Description 12/21/2019 9:30 AM CDT [facility] - [place] [address] [place] [address] Jaylon Gudino MD [address] [facility] [address] Acute serous otitis media of left ear, recurrence not specified (Primary Dx); Acute diffuse otitis externa of left ear; Impacted cerumen of left ear; Abdominal aortic aneurysm (AAA) without rupture (HCC) [...] Sign Reading Time Taken Comments Blood Pressure 144/80 12/21/2019 9:19 AM CDT Pulse - - Temperature 36.4 ??C (97.5 ??F) 12/21/2019 9:19 AM CD T Respiratory Rate - - Oxygen Saturation - - Inhaled Oxygen Concentration - - Weight 83.9 kg (185 lb) 12/21/2019 9:19 AM CDT Height 177.8 cm (5' 10 ) 12/21/2019 9:19 AM CDT Body Mass Index 26.54 12/21/2019 9:19 AM CDT documented in this encounter Progress Notes * India Terrell, SALES SERVICE MANAGER - 12/21/2019 9:30 AM CDT Bacilio Alvarado Ramirez, 74 y.o., male is here for Ringing in Ear (both ears) Medication Refills: Patient reports/denies need for medication refills. Orders Pended: no Requested Prescriptions No prescriptions requested or ordered in this encounter Home Medications Medication Sig Start Date End Date Taking? Authorizing Provider acetaminophen-codeine (TYLENOL #3) 300-30 MG Tablet Take 1-2 Tabs by mouth every 4 hours as needed for Pain. 02/01/16 Yes Juan Rubio MD amLODIPine (NORVASC) 5 MG Tablet Take by mouth. Yes Provider, MD Gerson finasteride (PROSCAR) 5 MG Tablet TAKE ONE TABLET BY MOUTH ONCE DAILY 12/08/19 Yes Jaylon Gudino MD fluticasone (FLONASE) 50 MCG/ACT Suspension 2 sprays in each nostril once daily (best after shower/bath) Patient not taking: Reported on 12/21/2019 12/29/16 Juan Rubio MD losartan (COZAAR) 100 MG Tablet TAKE ONE TABLET BY MOUTH ONCE DAILY 12/09/19 Yes Jaylon Gudino MD meloxicam (MOBIC) 7.5 MG Tablet 11/29/15 Gerson Tatum MD niacin (NIASPAN) 500 MG Tablet Controlled Release Take 500 mg by mouth every evening. Yes Gerson Tatum MD pravastatin (PRAVACHOL) 40 MG Tablet TAKE TWO TABLETS BY MOUTH NIGHTLY 11/09/19 Yes Jaylon Gudino MD Probiotic Product (PROBIOTIC & ACIDOPHILUS EX ST) Capsule Take 1 daily by mouth while on antibiotics and for at lesat 5 days after completing the antibiotic course. 02/01/16 Yes Deneen Rubio MD RABEprazole (ACIPHEX) 20 MG Tablet Delayed Response Take 40 mg by mouth daily. 30-60 minutes AC supper, d/c prior Rx Yes Gerson Tatum MD tamsulosin (FLOMAX) 0.4 MG Capsule Take 0.4 mg by mouth nightly. Yes Gerson Tatum MD There are no discontinued medications. I [...] have been addressed with the patient today: Flu, Smoking and Depression * Jaylon Gudino MD - 12/21/2019 9:30 AM CDT PROGRESS NOTE [facility] - INTERNAL MEDICINE [address] [place] [address] 12/21/2019 Bacilio Ramirez 1945 Chief Complaint Patient presents with ??? Ringing in Ear both ears Complains of left ear feels full. Decrease hearing. Also complains of sinus congestion. Denies any sore throat fever headache. ROS Review of Systems Constitutional: Negative. HENT: Positive for congestion and hearing loss (Left ear). Ear pain: left ear. Eyes: Negative. Respiratory: Negative. Cardiovascular: Negative. Gastrointestinal: Negative. Endocrine: Negative. Genitourinary: Negative. Musculoskeletal: Negative. Skin: Negative. Allergic/Immunologic: Negative. Neurological: Negative. Hematological: Negative. Psychiatric/Behavioral: Negative. PHYSICAL EXAM Physical Exam Constitutional: Appearance: Normal appearance. He is normal weight. HENT: Head: Normocephalic. Right Ear: Tympanic membrane and ear canal normal. Left Ear: There is impacted cerumen. Ears: Comments: Moderate amount of wax left here present. Eyes: Extraocular Movements: Extraocular movements intact. [...] and Affect: Mood normal. Under direct vision moderate amount of cerumen removed from left ear. Left tympanic membrane mildlyinflamed. Left ear canal is moderately inflamed. Patient tolerated procedure well. Past medical, surgical, social and family history has been reviewed and updated as necessary. Medications and allergies has been reviewed and updated. Allergies Allergen Reactions ??? Avelox [Moxifloxacin Hcl In Nacl] Unknown ??? Penicillins Hives ??? Simvastatin Other (see Comments) MUSCLE PAIN Patient Active Problem List Diagnosis Date Noted ??? PNAR (perennial non-allergic rhinitis) 01/17/2016 ??? Nasal turbinate hypertrophy ??? Chronic laryngitis ??? Laryngopharyngeal reflux (LPR) ??? Carotid artery stenosis 09/27/2012 ??? GERD without esophagitis 05/05/2011 ??? Pain in right shoulder 05/05/2011 ??? Hyperlipidemia 12/11/2009 Current Outpatient Medications: ??? acetaminophen-codeine (TYLENOL #3) 300-30 MG Tablet ??? amLODIPine (NORVASC) 5 MG Tablet ??? finasteride (PROSCAR) 5 MG Tablet ??? losartan (COZAAR) 100 MG Tablet ??? azxnqfor-zyntumrra-mtxowobvhgxhib (CORTISPORIN) 3.5-09346-2 Solution ??? niacin (NIASPAN) 500 MG Tablet Controlled Release ??? pravastatin (PRAVACHOL) 40 MG Tablet ? ? Probiotic Product (PROBIOTIC & ACIDOPHILUS EX ST) Capsule ??? RABEprazole (ACIPHEX) 20 MG Tablet Delayed Response ??? sulfamethoxazole-trimethoprim DS (BACTRIM DS, SEPTRA DS) 800-160 MG Tablet ??? tamsulosin (FLOMAX) 0.4 MG Capsule Assessment ASSESSMENT & PLAN: No follow-ups on file. Diagnoses and all orders for this visit: Acute serous otitis media of left ear, recurrence not specified Acute diffuse otitis externa of left ear Impacted cerumen of left ear Other orders - sulfamethoxazole-trimethoprim DS (BACTRIM DS, SEPTRA DS) 800-160 MG Tablet; Take 1 Tab by mouth 2times daily for 7 days. - dnmzqsnh-sancxodgt-qaubnwajiugifz (CORTISPORIN) 3.5-05531-1 Solution; Place 5 Drops in affected ear(s) 2 times daily for 7 days. Bactrim ds and Cortisporin otic drops prescribed. RTC if symptoms persist or increases. May try OTCloratadine for sinus congestion. I educated Bacilio regarding diagnoses and plan of care. He verbalizes understanding and will call the office if situation changes. Voice recognition software was utilized in this dictation. Despite proof reading, typographical errors and/or content errors may have occurred. By: Jaylon Gudino MD 12/21/2019 9:47 AM CDT documented in this encounter Procedure Notes * Jaylon Gudino MD - 12/21/2019 9:30 AM CDTProcedure(s): REMOVAL OF IMPACTED WAX Pre-Procedure Diagnose(s): Impacted cerumen of left ear Post-Procedure Diagnose(s): Impacted cerumen of left ear Impacted wax removed from left ear with loop curettage. Patient tolerated procedure well. documented in this encounter Plan of Treatment Upcoming Encounters Date Type Department Care Team (Late st Contact Info) Description 04/25/2024 9:30 AM BAR STAFF Office Visit [facility] - Internal Medicine - [place] [address] [place] [address] Jaylon Gudino MD [address] [facility] [place] [address] documented as of this encounter Visit Diagnoses Diagnosis Acute serous otitis media of left ear, recurrence not specified- Primary Acute diffuse otitis externa of left ear Impacted cerumen of left ear Impacted cerumen Abdominal aortic aneurysm (AAA) without rupture (HCC) documented in this encounter Additional Health Concerns Assessment Noted Time PHQ-9 Depression Total Score: 0 12/21/19 20 9:00 AM CDT documented as of this encounter Care Teams Vp Human Resources Relationship Specialty Start Date End Date Jaylon Gudino MD [address] [place] [address] PCP - General Internal Medicine 01/16/16 documented as of this encounter
--- OUTSIDE RECORDS SUMMARY | 2024-03-03 11:36 | XMS_ITS | Encounter Summary ---
Author Organization [facility] Address [address] [place] [address] Phone Care Team Providers Care Back Up Worker Name Role Phone Jaylon Gudino MD Primary Care Provider Reason for Visit * Reason Comments Medication Refill Encounter Details Date Type Department Care Team (Late Contact Info) Description 12/08/2019 Refill [facility] Internal [facility] [address] [place] [address] Jaylon Gudino MD [address] [place] [address] Medication Refill Social History Tobacco Use Types Packs/Day Years Used Date Smoking Tobacco: Former Cigarettes 1 10 Smokeless Tobacco: Never Alcohol Use Standard Drinks/Week Comments No 0 (1 standard drink = 0.6 oz pur e alcohol) Sex and Gender Information Value Date Recorded Sex Assigned at Not on file Legal Sex Male 12:40 AM CDT Gender Identity Not on file Sexual Orientation Not on file 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 Not on file Not on file documented as of this encounter Plan of Treatment Upcoming Encounters Date Type Department Care Team (Late Contact Info) Description 04/25/2024 9:30 AM 411 DIRECTORY ASSISTANCE OPERATOR Office Visit [facility] Internal Medicine [facility] [address] [place] [address] Jaylon Gudino MD [address] [place] [address] documented as of this encounter Visit Diagnoses Not on filedocumented in this encounter Additional Health Concerns Infection Onset Date Last Indicated Resolved Time COVID - 19 02/06/2022 02/06/2022 02/16/2022 12:1 6 AM 411 DIRECTORY ASSISTANCE OPERATOR documented as of this encounter Care Teams Back Up Worker Relationship Specialty Start Date End Date Jaylon Gudino MD [address] [place] [address] PCP - General Internal Medicine 01/16/16 documented as of this encounter
--- OUTSIDE RECORDS SUMMARY | 2024-03-03 11:36 | XMS_ITS | Encounter Summary ---
Author Organization [facility] Address [address] [place] [address] Phone Care Team Providers Care Eye Physician Name Role Phone Jaylon Gudino MD Primary Care Provider [phone] Reason for Visit * Reason Comments Medication Refill Encounter Details Date Type Department Care Team (Late st Contact Info) Description 11/09/2019 Refill [facility] - [place] [address] [place] [address] Jaylon Gudino MD [address] [address] Medication Refill Social History Tobacco Use Types [...] Telephone Encounter - Keysha Loya RN - 11/09/2019 10:51 AM CDT Please review and sign. documented in this encounter Plan of Treatment Upcoming Encounters Date Type Department Care Team (Late st Contact Info) Description 04/25/2024 9:30 AM TOWER EQUIPMENT REPAIRER Office Visit [facility] - Internal Medicine [facility] [address] [place] [phone] Jaylon Gudino MD [address] [place] [address] documented as of this encounter Visit Diagnoses Not on filedocumented in this encounter Care Teams Eye Physician Relationship Specialty Start Date End Date Jaylon Gudino MD [address] [place] [address] PCP - General Internal Medicine 01/16/16 documented as of this encounter
--- OUTSIDE RECORDS SUMMARY | 2024-03-03 11:36 | XMS_ITS | Encounter Summary ---
Author Organization [facility] Address [address] [place] [address] Phone Care Team Providers Care Beverage Steward Name Role Phone Jaylon Gudino MD Primary Care Provider [phone] Reason for Visit * Reason Comments Medication Refill Encounter Details Date Type Department Care Team (Late st Contact Info) Description 12/09/2019 Refill [facility] - Internal Medicine - [place] [address] [place] [phone] Jaylon Gudino MD [address] [place] [address] Medication Refill Social History Tobacco Use Types [...] encounter Miscellaneous Notes * Telephone Encounter - Maria Arias RN - 12/09/2019 10:08 AM CDT Pended to PCP documented in this encounter Plan of Treatment Upcoming Encounters Date Type Department Care Team (Late st Contact Info) Description 04/25/2024 9:30 AM GAMBLING BROKER Office Visit [facility] - Internal Medicine [place] [address] [place] [phone] Jaylon Gudino MD [address] [place] [address] documented as of this encounter Visit Diagnoses Not on filedocumented in this encounter Care Teams Beverage Steward Relationship Specialty Start Date End Date Jaylon Gudino MD [address] [place] [address] PCP - General Internal Medicine 01/16/16 documented as of this encounter
--- OUTSIDE RECORDS SUMMARY | 2024-03-03 11:36 | XMS_ITS ---
Author Organization [facility] Address [address] [facility] [address] [place] [address] Phone Care Team Providers Care External Grinder Tool Name Role Phone Jaylon Gudino MD Primary Care Provider OnCall Chronic Care Management Status:Declined (Declined) Start date:07/15/2023 Enrollment reason:Identified using claims or encounter data End date:07/20/2023 Decline reason:Uninterested Related social drivers of health:Intimate Partner Violence, Social Connections, Tobacco Use, Food Insecurity, Transportation Needs, Housing Stability Continued Care and Services Coordination
--- OUTSIDE RECORDS SUMMARY | 2024-03-03 11:39 | XMS_ITS | Clinical Summary ---
Author Organization [facility] Address [address] [place] [address] Care Team Providers Care Certified Orthotist/Pedorthist Name Role Phone Jaylon Gudino MD Unavailable [phone] Jaylon Gudino MD Primary Care Provider [phone] Allergies Active Allergy Reactions Criticality Noted Date Comments Moxifloxacin Unknown Low Penicillins Hives Medium 08/29/2011 Simvastatin Other (See comments) Low 11/10/2011 MUSCLE PAIN Sulfa (Sulfonamide Antibiotics) Rash Medium 12/28/2019 Medications amLODIPine (NORVASC) 5 mg tabletIndications :hypertension Take 1 tablet (5 mg total) by mouth 2 (two) times a day 1 Active pravastatin (PRAVACHOL) 40 mg tabletIndications :hyperlipidemia Take 2 tablets (80 mg total) by mouth nightly 1 Active valsartan (DIOVAN) 160 mg tabletIndications :hypertension Take 1 tablet (160 mg total) by mouth every morning [address] (ACIPHEX) 20 mg EC tabletIndications :Stress Ulcer Prophylaxis Take 1 tablet (20 mg total) by mouth as needed Active aspirin 81 mg enteric coated tabletIndications :Myocardial Reinfarction Prevention,preven tion of thrombosis Take 1 tablet (81 mg total) by mouth every morning Active MULTIVITAMIN ORALIndications:s upplement Take 1 tablet by mouth every morning Active Lactobacillus acidophilus (PROBIOTIC ORAL)Indications: gut health Take 1 tablet/capsu le by mouth daily as needed Active fexofenadine (FABY) 180 mg tabletIndications :Seasonal Allergic Rhinitis Take 1 tablet (180 mg total) by mouth as needed Active HYDROcodone-aceta minophen (NORCO) 5-325 mg per tabletIndications :Pain Take 1 tablet by mouth every 6 (six) hours as needed for pain 20 tablet 4 03/11/19 25 Active meloxicam (MOBIC) 15 mg tablet Take 1/2 tablet two times daily. 30 tablet 4 Active Active Problems Problem Noted Date Diagnosed Date Stiffness of finger joint of left hand 4 Contracture of muscle of left hand 10/17/2022 Other specified hypothyroidism 09/29/2022 Injury of left hand, initial encounter 3 Nerve injury 07/23/2022 Trigger middle finger of right hand 02/19/2021 Trigger ring finger of left hand 02/19/2021 Chronic laryngitis 02/18/2021 Laryngopharyngeal reflux (LPR) 02/18/2021 Nasal turbinate hypertrophy 02/18/2021 Generalized pruritus 04/17/2020 Hyperglycemia 04/17/2020 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 Essential hypertension, benign 01/16/2020 Abdominal aortic aneurysm (AAA) without rupture 12/21/2019 History of left-sided carotid endarterectomy PNAR (perennial non-allergic rhinitis) 6 Stenosis of carotid artery 08/29/2011 GERD without esophagitis 05/05/2011 Pain in right shoulder 05/05/2011 Mixed hyperlipidemia 12/11/2009 Encounters Date Type Department Care Team Description 02/22/2024 1:00 PM MACHINE DEICER ELEMENT WINDER Therapy [facility] Occupational Therapy [address] [place] [phone] Karen Elias, OT Injury of left hand, subsequent encounter (Primary Dx) 02/19/2024 10:00 AM MACHINE DEICER ELEMENT WINDER Therapy [facility] Occupational Therapy [address] [place] [phone] Karen Elias, OT Injury of left hand, subsequent encounter (Primary Dx) 02/16/2024 1:45 PM MACHINE DEICER ELEMENT WINDER Therapy [facility] Occupational Therapy [address] [place] [phone] Karen Elias, OT Injury of left hand, subsequent encounter (Primary Dx) 02/15/2024 1:20 PM MACHINE DEICER ELEMENT WINDER Office Visit [facility]edic Surgery [address] [place] [address] [address] [place] [phone] Ry York MD Injury of left hand, initial encounter (Primary Dx) 02/12/2024 2:30 PM MACHINE DEICER ELEMENT WINDER Therapy [facility] Occupational Therapy [address] [place] [phone] Karen Elias, OT Injury of left hand, subsequent encounter (Primary Dx) 02/09/2024 12:48 PM MACHINE DEICER ELEMENT WINDER Anesthesia Event [facility] Surgery at [address] [phone] Geronimo Dwyer MD Wiethuchter, Kelli P., NP 02/09/2024 11:40 AM MACHINE DEICER ELEMENT WINDER - 02/09/2024 1:10 PM MACHINE DEICER ELEMENT WINDER Surgery [facility] Surgery at [address] [phone] Ry York MD Left Middle Finger Flexor TENOLYSIS and proximal interphalangeal capsular contracture release 02/09/2024 8:55 AM MACHINE DEICER ELEMENT WINDER - 02/09/2024 2:54 PM MACHINE DEICER ELEMENT WINDER Hospital Encounter [facility] Surgery at [address] [phone] Ry York MD Stiffness of finger joint of left hand (Primary Dx); Contracture of muscle of left hand Discharge Disposition: Discharge to home or self care 02/01/2024 12:30 PM MACHINE DEICER ELEMENT WINDER Office Visit [facility] Orthopaedic Surgery [address] [place] [address] 1[address] [place] [phone] Ry York MD Rupture of flexor sheath mame of finger (Primary Dx) 01/26/2024 9:15 AM MACHINE DEICER ELEMENT WINDER Therapy [facility] Occupational Therapy [address] [place] [phone] Karen Elias, OT Injury of left hand, subsequent encounter (Primary Dx) 01/25/2024 9:45 AM MACHINE DEICER ELEMENT WINDER Therapy [facility] Occupational Therapy [address] [place] [phone] Karen Elias, OT Injury of left hand, subsequent encounter (Primary Dx) 01/21/2024 10:00 AM MACHINE DEICER ELEMENT WINDER Therapy [facility] Occupational Therapy [address] [place] [phone] Karen Elias, OT Injury of left hand, subsequent encounter (Primary Dx) 01/18/2024 8:15 AM MACHINE DEICER ELEMENT WINDER Therapy [facility] Occupational Therapy [address] [place] [phone] Karen Elias, OT Injury of left hand, subsequent encounter (Primary Dx) 01/15/2024 9:15 AM MACHINE DEICER ELEMENT WINDER Therapy [facility] Occupational Therapy [address] [place] [phone] Karen Elias, OT Injury of left hand, subsequent encounter (Primary Dx) 01/12/2024 11:30 AM MACHINE DEICER ELEMENT WINDER Therapy [facility] Occupational Therapy [address] [place] [phone] Karne Elias, OT Injury of left hand, subsequent encounter (Primary Dx) 01/05/2024 11:00 AM MACHINE DEICER ELEMENT WINDER Therapy [facility] Occupational Therapy [address] [place] [phone] Karen Elias, OT Injury of left hand, subsequent encounter (Primary Dx) 01/05/2024 Plan of Care Documentation [facility] Occupational Therapy [address] [place] [phone] 12/18/2023 11:00 AM CDT Office Visit [facility] Orth[facility]edic Surgery [address] [facility] 1st Floor [address] [place] [address] Ry York MD Rupture of flexor sheath mame of finger (Primary Dx) from Last 3 Months Immunizations Name Administration Dates Next Due Tdap 07/23/2022 Surgical History Surgery Date Site/Laterality Comments HAND SURGERY 07/23/2022 Left nerve and tendon repair SHOULDER SURGERY Bilateral x4. unsure on dates APPENDECTOMY late 1979' COLONOSCOPY CAROTID ENARTERECTOMYY 03/02/1993 - 03/01/1994 Left SEPTOPLASTY 02/01/2016 HAND SURGERY 11/04/2022 Left Medical History Medical History Date Comments TIA (transient ischemic attack) 1993 HTN (hypertension) Hypercholesteremia Family History Medical History Relation Name Comments Anesthesia problems Neg Hx Social History Tobacco Use Types Packs/Day Years Used Date Smoking Tobacco: Former Cigarettes Q uit: 1989 Smokeless Tobacco: Never Tobacco Cessation:Counseling Given: Not Answered AUDIT-C Answer Date Recorded Q1: How often do you have a drink containing alcohol? Never 02/09/2024 Q2: How many drinks containi ng alcohol do you have on a typical day when you are drinking? Patient does not drink Q3: How often do you have si x or more drinks on one occasion? Never 02/09/2024 Personal Safety Answer Date Recorded Have you ever been in or are you currently in a harmful physical or emotional relationship or is someone making you feel afraid or unsafe? Denies 02/09/2024 Sex and Gender Information Value Date Recorded Sex Assigned at Not on file Legal Sex Male 3:56 AM MACHINE DEICER ELEMENT WINDER Gender Identity Not on file Sexual Orientation Not on file Obstetrics History Last Filed Vital Signs Vital Sign Reading Time Taken Comments Blood Pressure 135/90 02/09/2024 2:30 PM MACHINE DEICER ELEMENT WINDER Pulse 56 02/09/2024 2:30 PM MACHINE DEICER ELEMENT WINDER Temperature 36.2 ??C (97.2 ??F) 02/09/2024 1:54 PM CS T Respiratory Rate 14 02/09/2024 2:30 PM MACHINE DEICER ELEMENT WINDER Oxygen Saturation 95% 02/09/2024 2:30 PM MACHINE DEICER ELEMENT WINDER Inhaled Oxygen Concentration - - Weight 81.6 kg (180 lb) 02/09/2024 9:19 AM MACHINE DEICER ELEMENT WINDER Height 176.5 cm (5' 9.5 ) 02/09/2024 9:19 AM MACHINE DEICER ELEMENT WINDER Body Mass Index 26.2 02/09/2024 9:19 AM MACHINE DEICER ELEMENT WINDER Plan of Treatment Health Maintenance Due Date Last Done Comments Depression Screening 1945 Hepatitis B Screening 09[birth year]04/1963 Well Visit 65+ 09/04/2008 Pneumococcal vaccine 65+ (2 of 2 - PCV) 12/17/2021 12/17/2020 Zoster Vaccine (3 of 3) 08/17/2023 06/22/2023, 07/15 Covid-19 Vaccine (2 - 2023-2 5 season) 2023 05/26/2020 Influenza Vaccine (#1) 2023 2, 10/31/2020, 11/09/2019, Additional history exists Fall Risk Assessment 02/08/2025 02/09/2024 DTaP/Tdap/Td Vaccine (2 - Td or Tdap) 07/23/2032 07/23/2022 Medical Devices Implanted Type Area Preschool Assistant Director Device Identifier Shelf Expiration Date Model / Serial / Lot [employer] Brunswick Cartridge Micro Clip Internal Titanium Hemostatic [id number] - [id number] Implanted:Qty: 6 on 07/23/2022 by Vimal Stringer MD at [facility] Clip Left: Hand [employer] Allian 08/29/2026 [id number] / / [id number] Synovis Micro Cobrain Allian Hemoclip Superfine Clip Internal [id number] - [id number] Implanted:Qty: 6 on 07/23/2022 by Vimal Stringer MD at [facility] Clip Left: Hand [employer] Allian 08/29/2026 [id number] / / [id number] [employer]ogen [employer] Avance 2-3mm 50mm Allograft Multiple Clean Graft Soft Tissue [id number] - [id number] Implanted:Qty: 1 on 07/23/2022 by Vimal Stringer MD at [facility] Left: Hand [employer] 10/30/2024 [id number] / / [id number] [employer] Allian Brunswick Cartridge Micro Clip Internal Titanium Hemostatic [id number] - [id number] Implanted:Qty: 1 on 07/23/2022 by Vimal Stringer MD at [facility] Left: Hand [employer] Allian 06/29/2026 [id number] / / [id number] [employer] Allian Hemoclip Superfine Clip Internal [id number] - [id number] Implanted:Qty: 1 on 07/23/2022 by Vimal Stringer MD at [facility] Left: Hand [employer] Allian 08/29/2026 [id number] / / [id number] [employer] Samira Integra 2x2in Bilayer Matrix Dressing Biological Bovine Collagen Latex Free [id number] - [id number] Implanted:Qty: 1 on 07/23/2022 by Vimal Stringer MD at [facility] Left: Hand Integra [employer] [facility] [id number] 07/31/2023 [id number] / / [id number] Procedures Procedure Name Priority Date/Time Associated Diagnosis Comments RELEASE CONTRACTURE OF UPPER EXTREMITY 02/09/2024 12:49 PM MACHINE DEICER ELEMENT WINDER Stiffness of finger joint of left hand Case Notes 02/04@1347: lineup change per Yvonne via email. BR TENOLYSIS - UPPER EXTREMITY 02/09/2024 12:49 PM MACHINE DEICER ELEMENT WINDER Stiffness of finger joint of left hand Case Notes 02/04@1347: lineup change per Yvonne via email. BR WI AN PROCEDURE PLACEHOLDER Routine 02/09/2024 12:41 PM MACHINE DEICER ELEMENT WINDER WI AN PROCEDURE PLACEHOLDER Routine 02/09/2024 12:40 PM MACHINE DEICER ELEMENT WINDER WI ARTHROCENTESIS ASPIR&/INJ SMALL JT/BURSA W/O US Routine 12/18/2023 11:00 AM CDT Rupture of flexor sheath mame of finger from Last 3 Months Results * WI AN PROCEDURE PLACEHOLDER (02/09/2024 12:41 PM MACHINE DEICER ELEMENT WINDER) Narrative Geronimo Dwyer MD - 02/09/2024 12:41 PM MACHINE DEICER ELEMENT WINDER Geronimo Dwyer MD ? 02/09/2024 12:42 PM Peripheral Block Patient location during procedure: pre-op holding Reason for block: post-op pain management per surgeon request Ultrasound image in chart or stored: yes Block type: single shot Laterality: left Block type: median nerve block - at forearm Staff: Placed by: Anesthesiologist: Geronimo Dwyer MD Procedure prep: Preprocedure checklist: patient identified, procedure contraindications assessed, site marked, procedure consent, surgical consent, IV checked, risks, benefits and alternatives discussed, monitors and equipment checked and timeout performed Patient position: head of bed elevated Procedure performed while patient: sedate with meaningful contact Monitoring: ECG, oximetry and blood pressure Supplemental O2: nasal cannula Prep solution: chlorhexidine/alcohol PPE: provider hat/mask, sterile probe cover and gel and sterile gloves Peripheral nerve block: Technique: ultrasound guided Needle type: insulated, short-bevel and echogenic Needle gauge: 22 G Needle length: 50 mm Injection assessment: injection made incrementally with constant monitoring, normal resistance to injection, local visualized surrounding nerve on ultrasound, no paresthesias noted, see flowsheet for medication details and negative aspiration for heme Assessment: Block success: full evaluation pending Events: patient tolerated procedure well with no complications us Geronimo Dwyer MD ANESTHESIA ORDERABLES Final Res ult * WI AN PROCEDURE PLACEHOLDER (02/09/2024 12:40 PM MACHINE DEICER ELEMENT WINDER) Narrative Geronimo Dwyer MD - 02/09/2024 12:40 PM MACHINE DEICER ELEMENT WINDER Geronimo Dwyer MD ? 02/09/2024 12:41 PM Peripheral Block Patient location during procedure: pre-op holding Reason for block: post-op pain management per surgeon request Ultrasound image in chart or stored: yes Block type: single shot Laterality: left Block type: radial nerve block - at elbow Staff: Placed by: Anesthesiologist: Geronimo Dwyer MD Procedure prep: Preprocedure checklist: patient identified, procedure contraindications assessed, site marked, procedure consent, surgical consent, IV checked, risks, benefits and alternatives discussed, monitors and equipment checked and timeout performed Patient position: head of bed elevated Procedure performed while patient: sedate with meaningful contact Monitoring: ECG, oximetry and blood pressure Supplemental O2: nasal cannula Prep solution: chlorhexidine/alcohol PPE: provider hat/mask, sterile probe cover and gel and sterile gloves Peripheral nerve block: Technique: ultrasound guided Needle type: insulated, short-bevel and echogenic Needle gauge: 22 G Needle length: 50 mm Injection assessment: injection made incrementally with constant monitoring, normal resistance to injection, local visualized surrounding nerve on ultrasound, no paresthesias noted, see flowsheet for medication details and negative aspiration for heme Assessment: Block success: full evaluation pending Events: patient tolerated procedure well with no complications us Geronimo Dwyer MD ANESTHESIA ORDERABLES Final Res ult * WI ARTHROCENTESIS ASPIR&/INJ SMALL JT/BURSA W/O US (12/18/2023 11:00 AM CDT) Narrative Ry York MD - 12/18/2023 11:00 AM CDT Ry York MD ? 12/18/2023 ??5:15 PM Small Joint Injection: L long PIP Performed by: Ry York MD Authorized by: Ry York MD ?? Procedure Details: ??Location: ??Long finger ??Site: ??L long PIP ??Medications: ??1 mL lidocaine 10 mg/mL (1 %); 40 mg methylPREDNISolone acetate 40 mg/mL Ry York MD IN CLINIC/BEDSIDE ORDERAB LES Final Result from Last 3 Months Insurance MEDICARE MEDICARE MEDICARE MEDICARE Advance Directives For more information, please contact: [phone] * Full Code (Latest Code Status on File) Date Activated Date Inactivated Comments 07/23/2022 8:33 PM 07/24/2022 7:09 PM Care Teams Certified Orthotist/Pedorthist Relationship Specialty Start Date End Date Jaylon Gudino MD [address] [place] [address] PCP - General Internal Medicine 10/24/22 Jaylon Gudino MD [address] [place] [address] 07/23/22
--- OUTSIDE RECORDS SUMMARY | 2024-03-03 11:39 | XMS_ITS | Encounter Summary ---
Author Organization [facility] Healthcare Address [address] [place] [address] Care Team Providers Care Carroting Machine Operator Name Role Phone Jaylon Gudino MD Unavailable [phone] Jaylon Gudino MD Primary Care Provider [phone] Reason for Visit * Reason Comments OT Treatment * Consultation (Routine) - Authorized Specialty Diagnoses / Procedures Referred By Lilly kraft Referred To Contact Occupational Therapy Diagnoses Rupture of flexor sheath mame of finger Jaylen, Ry Man MD [address] [facility] [address] [place] [address] Phone: tel: fax: External Order Referral ID Status Reason Start Date Expiration Date Visits Requested Visits Authorized [id number] Authorized Specialty Services Required 4 01/16/2025 40 40 Encounter Details Date Type Department Care Team (Late st Contact Info) Description 02/19/2024 10:00 AM EYE CARE PROFESSIONAL Therapy [facility] Occupational Therapy [address] [place] [address] Karen Elias OT [address] [place] [address] Injury of left hand, subsequent encounter (Primary Dx) Social History Tobacco Use Types Packs/Day Years Used Date Smoking Tobacco: Former Cigarettes Q uit: 1989 Smokeless Tobacco: Never AUDIT-C Answer Date Recorded Q1: How often [...] on file Legal Sex Male 3:56 AM EYE CARE PROFESSIONAL Gender Identity Not on file Sexual Orientation Not on file documented as of this encounter Progress Notes * Karen Elias, OT - 02/19/2024 10:00 AM CST Occupational Therapy Visit OT Daily Treatment Note Bacilio Ramirez 1945 Subjective: Pain: 03/11 Location: left LF Patient report no new subjective information this date. Objective: No objective measurements were taken this date. Treatment Provided: Aggressive PROM for LF flexion and extension x's 15 reps Aggressive PROM for LF hook fist x's 15 reps Wound care: applied adaptic, band net, and gauze. Issued more bandaging supplies Therapist completed PROM extension on table top Patient completed AROM for PIP and DIP blocking of LF Patient completed AROM exercises for composite flexion/extension Patient completed AROM hook fist Bottle cap activity x's 2 sets Small cone apparel embroidery digitizer x's 10 reps Assessment: Patient continues to have increased swelling in left LF. He continues to have limited AROM of left SF. He continues to have limited SF PIP extension. However, his extension is better than it was prior to surgery. His incision is healing well with no signs of infection. His incision did begin to bleed lightly during exercises. He has no pain at rest but did have discomfort with PROM. He tolerated all therapy exercises. He verbalized understanding of HEP and would care. He would benefit from continued OT services. ST) 01/05/24 Patient to increase left LF MP flexion to 75 degrees by 3 weeks (01/26/24) 2) 01/05/24 Patient to increase left LF PIP flexion to 100 degrees by 3 weeks (01/26/24) 3) 01/05/24 Patient to increase left LF DIP flexion to 40 degrees by 3 weeks (01/26/24) 4) 01/05/24 Patient to increase left LF PIP extension to -35 degrees by 3 weeks (01/26/24) 5) 01/05/24 Patient to increase left LF DIP extension to -10 degrees by 3 weeks (01/26/24) LT) 01/05/24 Patient to increase left LF DIP flexion to 60 degrees by 6 weeks (02/16/24) 2) 01/05/24 Patient to increase left LF PIP extension to -25 degrees by 6 weeks (02/16/24) 3) 01/05/24 Patient to increase left LF DIP extension to -5 degrees by 6 weeks (02/16/24) Will add more goals as appropriate. Plan: Patient to return to therapy to continue plan of care. Start Time: 10:00 AM End Time: 10:45 AM Karen Elias OTR/L CARE PROFESSIONAL documented in this encounter Plan of Treatment Scheduled Referrals Name Type Priority Associated Diagnoses Order Schedule Ambulatory referral order to Occupational Therapy - Outpatient Referral Routine Contracture of muscle of left hand Ordered: 02/11/2024 documented as of this encounter Visit Diagnoses Diagnosis Injury of left hand, subsequent encounter- Primary documented in this encounter Care Teams Carroting Machine Operator Relationship Specialty Start Date End Date Jaylon Gudino MD [address] [place] [address] PCP - General Internal Medicine 10/24/22 Jaylon Gudino MD [address] [place] [address] 07/23/22 documented as of this encounter
--- OUTSIDE RECORDS SUMMARY | 2024-03-03 11:39 | XMS_ITS | Encounter Summary ---
Author Organization [facility] Healthcare Address [address] [place] [address] Care Team Providers Care Head Grinder Name Role Phone Jaylon Gudino MD Unavailable [phone] Jaylon Gudino MD Primary Care Provider [phone] Reason for Visit * Auth/Cert (Routine) Specialty Diagnoses / Procedures Referred By Lilly t Referred To Contact Diagnoses Stiffness of finger joint of left hand Stiffness of finger joint of left hand [M25.642] Procedures AR TENOLYSIS FLEXOR TENDON PALM/FINGER EACH TENDON Left Middle Finger Flexor TENOLYSIS and proximal interphalangeal capsular contracture release Left Proximal interphalangeal capsular contracture release Referral ID Status Reason Start Date Expiration Date Visits Re quested Visits Authorized [id number] 1 1 Encounter Details Date Type Department Care Team (Late st Contact Info) Description 02/09/2024 11:40 AM SUPERCHARGER REPAIR SUPERVISOR - 02/09/2024 1:10 PM [facility] Surgery [facility] [address] [place] [address] Ry York MD [address] [place] [address] Left Middle Finger Flexor TENOLYSIS and proximal interphalangeal capsular contracture release Surgery Details Date/Time Status Location OR Service Patient Class Case Class Case Type Trauma Case? 02/09/2024 11:40 AM Posted [facility] Operating Room [place] OR 1 Orthopaedics Outpatient Elective Panel 1 Procedure LRB Anes Op Region Wound Class Comments Left Middle Finger Flexor TENOLYSIS and proximal interphalangeal capsular contracture release Left Choice Hand Class I - Clean PREOP BLOCK Left Proximal interphalangea l capsular contracture release Left Choice Arm Lower Class I - Cl aric Pre-op block Surgeon Surgeon Role Service Panel Ry York MD Primary Orthopaedics 1 Dedrick Sneed MD Fellow Orthopaedics 1 Case Notes 02/04@1347: lineup change per Yvonne via email. BR documented in this encounter Social History Tobacco Use Types Packs/Day Years [...] on file Legal Sex Male 3:56 AM SUPERCHARGER REPAIR SUPERVISOR Gender Identity Not on file Sexual Orientation Not on file documented as of this encounter Last Filed Vital Signs Vital Sign Reading Time Taken Comments Blood Pressure - - Pulse 56 02/09/2024 9:19 AM SUPERCHARGER REPAIR SUPERVISOR Temperature 36.2 ??C (97.2 ??F) 02/09/2024 9:19 AM CS T Respiratory Rate 13 02/09/2024 9:19 AM SUPERCHARGER REPAIR SUPERVISOR Oxygen Saturation 98% 02/09/2024 9:19 AM SUPERCHARGER REPAIR SUPERVISOR Inhaled Oxygen Concentration - - Weight 81.6 kg (180 lb) 02/09/2024 9:19 AM SUPERCHARGER REPAIR SUPERVISOR Height 176.5 cm (5' 9.5 ) 02/09/2024 9:19 AM SUPERCHARGER REPAIR SUPERVISOR Body Mass Index 26.2 02/09/2024 9:19 AM SUPERCHARGER REPAIR SUPERVISOR documented in this encounter Discharge Instructions * Discharge Instructions* Ry York MD - 02/09/2024 1:44 PM SUPERCHARGER REPAIR SUPERVISOR POSTOPERATIVE INSTRUCTIONS - Dr. York Follow-up Appointments Your first postoperative visit with Dr. York is listed on the first page of your discharge instructions. You will also need to see a hand therapist in 3 days. Please call your hand therapist (Karen Elias at [facility]) to set this up - Dr. York will send a prescription. [facility] [place] [facility] [address] [place], [place] [id number] Dressing and Wound Care A large dressing has been placed on your arm to reduce motion and control swelling. Keep your dressing clean and dry. Keep the dressing/splint on until your first postoperative office visit. .. .. Wear a plastic bag over your dressing/splint whenever you take a shower or bath Swelling is normal after surgery. Elevate your hand/arm so the surgical site is above your heart todecrease the swelling. Swelling is like water, it runs downhill. This is especially important for the first 72 hours after surgery. The best way to elevate your hand/arm is with your fingers pointing towards the ceiling and your hand/arm above the level of the heart (see handout). You can use pillows to help prop your hand/arm up when sitting or lying down. If you are experiencing pain, be sure you are elevating your hand/arm as often as possible. Apply an ice pack over your dressing/splint for 20 minutes of every hour for the first 3 days when you are awake. This can help to reduce swelling and inflammation. Be sure the ice pack is waterproofso it does not leak on the dressing/splint. A simple ice pack can be made by adding ten cubes and asmall amount of water in a small zip-lock bag. Seal this small bag tightly. Place this small bag john larger zip lock bag. Apply to the area in pain. If the dressing feels too tight in spite of elevation, loosen the outer wrap but do not remove the entire dressing. ACTIVITIES: Bend and straighten the parts of your hand/arm that are not included in your surgical dressing or splint. Do this at least 6 times a day, as this will help decrease swelling and speed up your recovery. This includes your fingers when exposed so that you make a full fist. See attached handout. POSTOPERATIVE CARE/CONCERNS: You may experience some temporary numbness in your fingers. You should have very little to no bleeding on your dressing. Notify the office (see contact info at bottom of page) for any of the following: Excessive pain not relieved by rest, elevation, and pain medications Feeling that the dressing is too tight in spite of adequately elevating hand/arm Active bleeding through the dressing Drainage from the wound site or pin sites Foul odor from the dressing/wound Temperature greater that 101? F or chills Blue or excessively cold fingertips Numbness of the fingertips that does not improve in spite of adequately elevating hand/arm PAIN MEDICATION: A prescription for Lyman has been electronically sent into your pharmacy. A prescription for an anti-inflammatory (meloxicam) has been called into your pharmacy. You can stop taking this medication once you are no longer taking the narcotic pain medication. Do not take pain medication or anti-inflammatories on an empty stomach. It is illegal to drive while taking narcotic pain medication Pain is a normal part of the recovery after surgery. The pain medication provided to you will help to decrease the discomfort but will not completely eliminate the pain. Your pain should decrease over the first few days after surgery which will allow you to take less pain medicine, increase the time between doses of medication, or stop taking all pain medicine. If you need to request a refill, please do so during normal business hours (Thu- Thu 8am-4:30pm). Medication refills will not be provided outside of these hours. Please refer to Perioperative Narcotic Considerations form in your Pre-operative packet OFFICE CONTACT NUMBERS During business hours (Thu-Thu 8am-4:30pm) Dr. York's Oil Burner Journeyman: YVONNE TAN - phone: [phone] It is unlikely that the phone will be answered ???live?? since our team members are typically in clinics during the day. Please leave a message - our team checks these regularly throughout the day. After hours/weekend (Emergencies Only; no medication refills) [facility] Exchange: [phone] or toll-free Medications/prescriptions will not be refilled through this emergency exchange line. RCHARGER REPAIR SUPERVISOR RCHARGER REPAIR SUPERVISOR * Attachments The following attachments cannot be sent through Care Everywhere. * [facility] AFTER SURGERY documented in this encounter Medications at Time of Discharge amLODIPine (NORVASC) 5 mg tabletIndications: hypertension Take 1 tablet (5 mg total) by mouth 2 (two) times a day 12/03/2020 aspirin 81 mg enteric coated tabletIndications: Myocardial Reinfarction Prevention,prevent ion of thrombosis Take 1 tablet (81 mg total) by mouth every morning fexofenadine (FABY) 180 mg tabletIndications: Seasonal Allergic Rhinitis Take 1 tablet (180 mg total) by mouth as needed pravastatin (PRAVACHOL) 40 mg tabletIndications: hyperlipidemia Take 2 tablets (80 mg total) by mouth nightly 02/15/[address] (ACIPHEX) 20 mg EC tabletIndications: Stress Ulcer Prophylaxis Take 1 tablet (20 mg total) by mouth as needed valsartan (DIOVAN) 160 mg tabletIndications: hypertension Take 1 tablet (160 mg total) by mouth every morning 09/16/2021 HYDROcodone-acetam inophen (NORCO) 5-325 mg per tabletIndications: Pain Take 1 tablet by mouth every 6 (six) hours as needed for pain 20 tablet 02/09/2024 Lactobacillus acidophilus (PROBIOTIC ORAL)Indications:g ut health Take 1 tablet/capsul e by mouth daily as needed meloxicam (MOBIC) 15 mg tablet Take 1/2 tablet two times daily. 30 tablet 02/09/2024 MULTIVITAMIN ORALIndications:harrington pplement Take 1 tablet by mouth every morning documented as of this encounter Discharge Disposition Disposition Code Departure Means Destination Comment s Discharge to home or self care documented in this encounter H&P Notes * Ry York MD - 02/09/2024 11:49 AM CST I have reviewed the H&P, examined the patient, and endorse the findings as written. Plan of Care : Based on the above findings, I consider Bacilio Ramirez to be an acceptable risk for : Procedure(s): Left Middle Finger Flexor TENOLYSIS and proximal interphalangeal capsular contracture release Left Proximal interphalangeal capsular contracture release RCHARGER REPAIR SUPERVISOR Source Note - Dy, Ry Man MD - 02/01/2024 12:30 PM SUPERCHARGER REPAIR SUPERVISOR RETURN PATIENT VISIT CHIEF COMPLAINT: Left long finger contracture INTERIM HISTORY The patient returns for further evaluation management of left long finger contracture. He reports that hand therapy and his previous corticosteroid injection made virtually no difference in his hand function. 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 Notes in particular that he has an inability to gain more than a modicum of motion arc at the proximal interphalangeal joint of the affected digit. Minimal pain though. PHYSICAL EXAMINATION GENERAL: This is a well- developed, well nourished age appropriate patient in no acute distress. The patient is alert and oriented x3. Pleasant and cooperative. PSYCHIATRIC: Mood is euthymic. Affect appears appropriate. UPPER EXTREMITIES: On the left side, focused exam of the long finger demonstrates cicatrix across the palm extending up into the digit and through the webspace with the ring finger. It is held in a flexed posture at the proximal interphalangeal joint. Passive range of motion is about 30?? the proximal interphalangealjoint with a very firm end point on passive extension. Passive flexion also with a firm endpoint but not quite as much. Range of motion does not change with changing wrist from extension flexion or MP joint in extension or flexion. His MP joint has good range of motion from approximately full extension down to 60??. D IP joint has no discernible active range of motion. Finger appropriately perfused but 12 mm two-point discrimination, baseline. REVIEW OF X-RAYS/STUDIES None taken today IMPRESSION/DIAGNOSIS/ PLAN We had a nery discussion with the patient today that we do not feel that continued therapy would give him the gains he is looking for. We feel that he has a multifactorial reason for his stiffness: Certainly some intrinsic proximal interphalangeal joint pathology with a stiff capsule/volar plate, flexor tendon adhesions, and possibly even some component of intrinsic and extrinsic tightness. To give him the most likely improvement in his range of motion, we will offer him a flexor tenolysis as well as proximal interphalangeal joint contracture release. He understands the risk here that he maynot get better and, in fact, could even get worse in terms his range of motion. He has minimal sensation at baseline so we do not worry so much about damaging nerves but there is a real possibility of dysvascular changes to the digit. He understands all this and wishes to proceed. We will work on surgical scheduling for flexor tenolysis, capsular contracture release. TEACHING ATTESTATION: Please note that I personally saw and examined the patient today and activelyparticipated in the history, physical examination, review of studies, and medical decision making. I agree with the documentation initially composed by Dedrick Sneed MD and any documentation edits have been included above. Ry York M.D. [facility] Dr. York is dictating using speech recognition software. Coke Worker variances may occur. RCHARGER REPAIR SUPERVISOR documented in this encounter Miscellaneous Notes * Op Note - Ry York MD - 02/09/2024 1:11 PM CST OPERATIVE REPORT SURGEON Ry York MD, [facility] STORAGE BATTERY INSPECTOR Dedrick Sneed MD PREOPERATIVE and POSTOPERATIVE DIAGNOSES 1. Left middle finger flexor tendon adhesions in setting of prior repair 2. Left middle finger PIP capsular contracture. PROCEDURES 1. Left middle finger flexor tendon tenolysis, zone 2. 2. Left middle finger PIP capsular contracture release ANESTHESIA TYPE General SPECIMENS None. DRAINS None. COMPLICATIONS None. DISPOSITION Recovery in stable condition. ESTIMATED BLOOD LOSS: 5cc DESCRIPTION OF PROCEDURE Patient was greeted in the holding area. The risks/benefits/alternatives to surgery had been discussed. Informed consent had been signed and the operative site was marked. The patient was transferredto the operating room. The operative limb was prepped and draped in normal sterile fashion. Surgical timeout was called. Limb was exsanguinated and tourniquet was inflated. We made a Kimo zigzag incision starting at the area just proximal to the palmar digital crease and extending across the proximal phalanx to the PIP crease, with a midaxial extension over the level of the middle phalanx. This incorporated his prior surgical incision. We elevated full-thickness skin flaps. I identified the r adial neurovascular bundle, visualized the microsurgery sutures that were in place proximally. There was no visible disturbance of the nerve or vessel, and we dissected and freed these structures andallowed them to fall dorsally. We then identified the FDS and FDP within zone 2. There was substantial adhesion and scarring at the level of A2 A3 and A4. At a 5, the tendon of the FDP had a more normal appearance. The FDS had scarred to the FDP, and we visualized the core sutures that were used torepair these structures. I performed a tenolysis, freeing FDP from the radial and ulnar slips of FDS. After doing so, we then worked underneath the flexor tendons, identified the PIP capsule, and released the PIP capsule proximally. We released the check rein ligaments, this allowed us to obtain passive PIP extension to about 30??. There was substantial tightness in the flexor tendon, so we decided to dissect more proximally, and open back to the level of the A1 mame, we performed a tenolysis, sharply excising scar tissue around the FDP and FDS at this level as well. At this time, in the entire incision that we were not able to obtain additional passive extension, suggesting that there was some shortening in the tendon itself and additional work would need to be done at the level of themuscle or potentially Z-lengthening of the tendon, which I did not think would be particularly advan tageous in the situation. We then irrigated the wound, and closed the skin with 4-0 nylon simple interrupted and horizontal mattress sutures. We did discuss that there may be a role for a digit widget type device in the future to perform a lengthening of the tendon gradually over time. Local anesthetic was applied to wounds. Sterile dressings were applied. I was the attending surgeon and was present and scrubbed for the entire surgery . . RCHARGER REPAIR SUPERVISOR * Pre-Procedure Instructions - Thais Og NP - 02/02/2024 12:25 PM CST Center for Preoperative Assessment and Planning CPAP Clinic Location: [facility] The night before your surgery: * Do not eat anything after midnight the night before your procedure. The morning of your surgery: * You may have clear liquids on your surgery day. You must stop drinking two hours before you arrive to the surgery facility. Acceptable clear liquids include water, clear sports drinks, black coffee, tea, or clear soda. DO NOT drink any milk, creamer, or alcohol. * Your surgeon's office may have provided additional instructions or restrictions. Please follow those instructions. * You may brush your teeth and rinse your mouth out. * Do not glue your dentures. * Do not wear jewelry, body piercings, makeup, hairpins, false eyelashes or contact lenses to the hospital. * Leave any valuables at home or with your family. * If you have an implantable device with a remote, bring the remote with you on the day of surgery. * If you use home oxygen, bring your portable oxygen tank with you on the day of surgery * If having surgery at [facility], you may want to bring a credit card if you want to use our Mobile Pharmacy for your discharge medications. Mobile pharmacy is not available at [facility], the Orthopedic Center, or the [place] for [facility]. Outpatient Surgery: * You must have a responsible adult drive you home and stay with you for 24 hours after your surgery * You cannot be alone at home or in a hotel * Please call your surgeon's office if you do not have someone to drive you home and/or stay with you after surgery * Please bring any items you may need to spend the night in the hospital. Sometimes patients need to be cared for in the hospital overnight. Instructions For Your Medications: Pre-Surgery Instructions: Medication Instructions amLODIPine (NORVASC) 5 mg tablet Take morning of surgery aspirin 81 mg enteric coated tablet Per surgeon's instructions fexofenadine (FABY) 180 mg tablet Don't take on day of surgery Lactobacillus acidophilus (PROBIOTIC ORAL) Don't take on day of surgery MULTIVITAMIN ORAL Stop taking 1 week prior to surgery pravastatin (PRAVACHOL) 40 mg tablet Take the evening prior to surgery RABEprazole DR (ACIPHEX) 20 mg EC tablet Take on day of surgery if needed valsartan (DIOVAN) 160 mg tablet Don't take on day of surgery Your surgeon will tell you IF YOU SHOULD STOP the following medications and WHEN TO STOP taking them. Do not stop taking them on your own without being told to do so: Aspirin General Instructions For Medications: * Stop all of these medications 5 days prior to your surgery: excedrin, motrin, advil, ibuprofen, aleve, naproxen, meloxicam, celebrex, celecoxib. For medications that you are instructed to take on the morning of surgery, take the medications with a few sips of water. Stop all of these medications 7-14 days prior to your surgery: Vitamin E, Herbal medicines, Diet Pills If you have pain, you may take tylenol (acetaminophen). Do not take more than 6 tablets or 3000 mg (3 g) within a 24 period. Call your surgeon and the CPAP clinic if any of the following happens before surgery: Any changes in your health You have a fever You have any signs of an infection (chest, urinary tract or tooth) You have been to the Emergency Room or were in the hospital You have started taking any new medications RCHARGER REPAIR SUPERVISOR * Perioperative Nursing Note - Maria Tripathi RN - 02/02/2024 9:31 AM SUPERCHARGER REPAIR SUPERVISOR Center for Preoperative Assessment and Planning Perioperative Nursing Note Telephone Preoperative Evaluation ([facility]) - TELEPHONE ONLY, NO PHYSICAL EXAM Date: 02/02/24 This assessment was completed with the patient. Vitals: 02/02/24 0925 Weight: 84.8 kg (187 lb) Height: 176.5 cm (5' 9.5 ) CHEST CIRCUMFERENCE: NA Social History Tobacco Use Smoking Status Former Current packs/day: 0.00 Types: Cigarettes Quit date: 1990 Years since quittin.9 Smokeless Tobacco Never Substance and Sexual Activity Drug Use Never Alcohol Use Q1: How often do you have a drink containing alcohol?: Never Q2: How many drinks containing alcohol do you have on a typical day when you are drinking?: Patientdoes not drink Q3: How often do you have six or more drinks on one occasion?: Never Outpatient Medications Marked as Taking for the 02/09/24 encounter (Hospital Encounter) Medication Sig Dispense Refill amLODIPine (NORVASC) 5 mg tablet Take 1 tablet (5 mg total) by mouth 2 (two) times a day aspirin 81 mg enteric coated tablet Take 1 tablet (81 mg total) by mouth every morning fexofenadine (FABY) 180 mg tablet Take 1 tablet (180 mg total) by mouth as needed Lactobacillus acidophilus (PROBIOTIC ORAL) Take 1 tablet/capsule by mouth daily as needed MULTIVITAMIN ORAL Take 1 tablet by mouth every morning pravastatin (PRAVACHOL) 40 mg tablet Take 2 tablets (80 mg total) by mouth nightly RABEprazole DR (ACIPHEX) 20 mg EC tablet Take 1 tablet (20 mg total) by mouth as needed valsartan (DIOVAN) 160 mg tablet Take 1 tablet (160 mg total) by mouth every morning Implants Clip Playdate Appian [place] Cartridge Micro Clip Internal Titanium Hemostatic [id number] - [id number] - Implanted (Left) Hand Inventory item: KwagaIAN [place] Cartridge Micro Clip Internal Titanium Hemostatic [id number] Model/Cat number: [id number] Bank Representative: Playdate Appjohn Lot number: [id number] As of 07/23/2022 Status: Implanted Playdate Appian Hemoclip Superfine Clip Internal [id number] - [id number] - Implanted (Left) Hand Inventory item: XYZE Hemoclip Superfine Clip Internal [id number] Model/Cat number: [id number] Bank Representative: Playdate Appjohn Lot number: [id number] As of 07/23/2022 Status: Implanted Type Not Specified Axogen Inc Avance 2-3mm 50mm Allograft Multiple Clean Graft Soft Tissue [id number] - [id number] - Implanted (Left) Hand Inventory item: AXOGEN [employer] Avance 2-3mm 50mm Allograft Multiple Clean Graft Soft Tissue Model/Cat number: [id number] Bank Representative: Axogen Inc Lot number: [id number] Size: 2-3mm x 50mm As of 07/23/2022 Status: Implanted Playdate Appian [place] Cartridge Micro Clip Internal Titanium Hemostatic [id number] - [id number] - Implanted (Left) Hand Inventory item: KwagaIAN [place] Cartridge Micro Clip Internal Titanium Hemostatic [id number] Model/Cat number: [id number] Bank Representative: Playdate [employer]john Lot number: [id number] As of 07/23/2022 Status: Implanted DishOpinion Robert Hemoclip Superfine Clip Internal [id number] - [id number] - Implanted (Left) Hand Inventory item: [employer] ROBERT Hemoclip Superfine Clip Internal [id number] Model/Cat number: [id number] Bank Representative: DishOpinion Robert Lot number: [id number] As of 07/23/2022 Status: Implanted Integra LifesciCherry Bird Integra 2x2in Bilayer Matrix Dressing Biological Bovine Collagen Latex Free [id number] - [id number] - Implanted (Left) Hand Inventory item: [employer] MELISSA Integra [id number] Bilayer Matrix Dressing Biological BovineCollagen Latex Free [id number] Model/Cat number: [id number] Bank Representative: Integra Albire[employer] Melissa Lot number: [id number] Device identifier: [id number] Device identifier type: GS1 As of 07/23/2022 Status: Implanted SKIN Piercings Remaining: No Wound (LDAs) Type of Wound (LDA): (Denies) SCREENINGS José index score: 100 PATIENT CARE PLANNING Advance Directives (For Healthcare) Have you reviewed your Advance Directive and is it valid for this stay?: Not applicable Advance Directive: Patient does not have advance directive, Patient refused information Information Provided on Healthcare Directives: No Assistive Devices/DME: None Hearing - Right Ear: Functional Hearing - Left Ear: Functional Discharge Planning Type of Residence: Private residence Living Arrangements: Family members Support Systems: Family members, Friends/neighbors Patient expects to be discharged to: Private residence (Staffing And Scheduling Coordinator and ems educator: Friend, Gold) MAINTENANCE FITTER NO ADDITIONAL COMMENTS/ FOLLOW UP RCHARGER REPAIR SUPERVISOR * Pre-Procedure Instructions - Maria Tripathi RN - 02/02/2024 9:29 AM SUPERCHARGER REPAIR SUPERVISOR [facility]) PRE-SURGICAL NURSING INSTRUCTIONS Telephone Assessment General Information Discussed with Patient: Surgery location provided to patient. Arrival time and surgical time will be provided to the patient by their surgeon. You should wear clothing that is clean, loose, comfortable and easy to get in and out of on the dayof surgery. You should remove nail coverings, artificial nails and nail argentine prior to the day of surgery. This is to lower your risk of infection and to allow the day of surgery team to monitor your oxygen levels. You should leave your valuables and any jewelry at home. No metal or piercings are allowed in the operating room. You should bring your insurance card, a photo ID (example: Staffing And Scheduling Coordinator's License) and a method of payment for any insurance copay, deductible or copay for discharge medications. You should bring a complete, up-to-date, list of all your medications on the day of surgery, including any over the counter medications or supplements you may take. Please note on your medication list, the last date & time you took each medication. The healthcare team, on the day of surgery, will ask for this information. You should bring your Advanced Directive and/or Living Will with you on the day of surgery if you have not verified a copy is already in your Epic Chart. If you are having surgery at [facility], please arrive on the day of surgery with the name and phone number of your local 24 hour pharmacy. Due to evening discharges, your routine pharmacy may be closed. In order to obtain your prescriptions that evening, your surgeon may need to send prescriptions to this pharmacy or have you take prescriptions to this pharmacy when you are discharged. Without this information, you may not be able to obtain your prescriptions that evening. A Guide for Patients Having Surgery: Your Pathway to Excellent Care OUR GOAL IS TO PROVIDE YOU WITH EXCELLENT CARE Use this guide to learn about what you can do before, during and after surgery to help your recovery. You are the most important person on your health care team. By becoming informed and involved, you can contribute to the success of your surgery. If your surgeon's directions are different than those in this guide, talk with your nurse or surgeon to confirm the information. It is important that you understand how to take care of yourself at home after surgery. Be sure to bring this guide with you on the day of surgery and take it home with you after surgery. Write down questions for your nurse or surgeon on the last page of this booklet. Important pages to be reviewed BEFORE surgery: Page 1: QR codes for Surgery Center maps Page 3: Types of Anesthesia Page 5: Tips for the day & night before surgery Page 6: When to stop eating BEFORE surgery and examples of clear liquids Page 7-10: Preventing Infection: Chlorhexidine Gluconate (CHG) Bathing Instructions You may access A Guide for Patients Having Surgery: Your Pathway to Excellent Care by the followinglink: [email or web address] How To Prepare Your Skin For Surgery Below is the Pre-Surgical Bathing Protocol you should follow for your surgery. If your surgeon provides you different bathing instructions, please follow your surgeon's orders. 2 Day CHG Bathing Protocol (no nasal ointment) PREVENTING INFECTION (DECOLONIZATION): Decolonization is the use of a topical antiseptic soap and sometimes a nasal ointment to remove bacteria (germs) from the skin's surface. Antiseptic soap: Chlorhexidine gluconate or CHG (brand name: Hibiclens??) Before surgery, your entire body must be thoroughly cleaned. CHG helps to reduce the bacteria on your skin. You may be given one or more bottles of CHG or you may be asked to obtain from your preferred pharmacy. Be sure to ask your pharmacist if you need help finding this product. Nasal ointment: Mupirocin (brand name: Bactroban) Your surgeon may also prescribe a topical ointment that is rubbed inside each of the nostrils to reduce the bacteria in your nose. Mupirocin ointment requires a prescription. If needed, it will be prescribed by your surgeon and obtained from your preferred pharmacy. SHOWERING WITH ANTISEPTIC SOAP (CHG) What You Need For Each Shower 60 mL (?? cup) of CHG 2 clean washcloths CHG Bathing Instructions First, shampoo and rinse your hair with your own shampoo (no conditioners). Do this so the antiseptic soap isn't washed off by your shampoo. Wash face with warm water. Turn off shower and stand away from the water. Use 2 clean washcloths to apply the antiseptic soap to all areas as described below: Pour 30 mL (1/8 cup) of CHG on washcloth #1: Using washcloth- start at jawline and firmly massage the soap into the skin in a circular motion to clean neck, shoulders, chest, back, both armpits, arms, hands and abdomen. Finish with legs and feet. Pour 30 mL (1/8 cup) of CHG on washcloth #2: Using washcloth- firmly massage the soap into the skinin a circular motion to clean groin area, perineum and buttocks. (Do not use CHG on genital area.) Lassiter Points: The CHG antiseptic soap will not bubble or lather very much. If you get soap in your eyes, ears or mouth, rinse well with cool water. When finished, leave the soap on your skin for 2 minutes before rinsing. Dry off with a clean fresh towel. Wear clean clothes or pajamas to sleep in. After showering DO NOT put on deodorant, hair products or conditioners, lotions or creams, powders,Vaseline or any non-essential products. If you cannot reach the surgical site, such as the back, please have someone help you. Shaving: You may shave your face, legs and underarms during your evening shower before you apply the CHG antiseptic soap. Be careful not to cut or lisa your skin. Avoid shaving on the day of surgery. Deodorant: Patients following the 5-Day CHG protocol may apply deodorant on the days leading up to surgery, being sure, however, to avoid use on the evening before and day of surgery. All other products should be avoided for the full 5 days. 2-Day CHG Bathing Protocol The Evening Before Surgery: Take a shower with Antiseptic soap (CHG). Follow the steps for ???Showering with Antiseptic Soap (CHG)?? above. Change all linens on your bed so you are sleeping in clean fresh sheets and pillowcases. Remove nail coverings, artificial nails and nail argentine. The Morning of Surgery: Take a shower with Antiseptic soap (CHG). Follow the steps for ???Showering with Antiseptic Soap (CHG)?? above. Put clean clothes on after you shower. Travel/Exposure Screening: Travel Screening Have you traveled outside the [place] in the last 6 months?: No Exposure Screening Have you been exposed to anyone who is sick in the last 30 days?: No Have you been exposed to or tested positive for COVID-19 within the last 10 days?: No Infectious Disease Screening Are you having any of the following:: None As of 12/24/2021 any COVID TESTING required for surgery will be set up by your surgeon's office. Please reach out to your surgeon's office if you develop any COVID symptoms, test positive for COVID or are exposed to a COVID positive person. If you have questions, please call the [facility] Staff at [phone], Thursday-Thursday 8am-4:30pm. All patients should read the below section: Information on [facility]: Please view [email or web address] (Patient & Visitor Information) for additional details regarding Advanced Directive forms, AWARE, directions, parking information, lodging, Internet access, dining and more. For MyChart information, to activate account or password recovery, please go to [email or web address] or call [phone] (toll-free: [phone]), Thu- Thursday 8am-5pm. Information for Suicide Prevention: National Suicide Prevention Lifeline (3-132- 230-LHQW (4379)) or call or text 022. Chat resources: [email or web address]. Surgery Times: For patients having surgery @ [facility], [facility] or [facility] ([facility]), if your surgeon's office has not notified you of your surgery time by NOON THE BUSINESS DAY BEFORE your surgery, please call [phone] and ask for your surgeon's office Dr. Ry York. The [facility] ([facility]) does not provide arrival times for theday of surgery or provide the duration of surgery. This information is provided by your surgeon's office or by the center where you are having surgery. We appreciate your understanding. RCHARGER REPAIR SUPERVISOR documented in this encounter Plan of Treatment Scheduled Referrals Name Type Priority Associated Diagnoses Order Schedule Ambulatory referral order to Occupational Therapy - Outpatient Referral Routine Contracture of muscle of left hand Ordered: 02/11/2024 documented as of this encounter Procedures Procedure Name Priority Date/Time Associated Diagnosis Comments RELEASE CONTRACTURE OF UPPER EXTREMITY 02/09/2024 12:49 PM SUPERCHARGER REPAIR SUPERVISOR Stiffness of finger joint of left hand Case Notes 02/04@1347: lineup change per Yvonne via email. BR TENOLYSIS - UPPER EXTREMITY 02/09/2024 12:49 PM SUPERCHARGER REPAIR SUPERVISOR Stiffness of finger joint of left hand Case Notes 02/04@1347: lineup change per Yvonne via email. BR documented in this encounter Visit Diagnoses Diagnosis Stiffness of finger joint of left hand- Primary Stiffness of finger joint of left hand Contracture of muscle of left hand Stiffness of finger joint of left hand documented in this encounter Admitting Diagnoses Diagnosis Stiffness of finger joint of left hand documented in this encounter Administered Medications Inactive Administered Medications - up to 3 most recent administrations Medication Order MAR Action Action Date Dose Rate Site acetaminophen (TYLENOL) tablet 1,000 mg 1,000 mg, oral, Once, On Thu02/09/24 at 1000, For 1 dose, Pre-Op, Indications: Pre-Emptive AnalgesiaIndications:Pre-Emptive Analgesia Given 02/09/2024 9:29 AM SUPERCHARGER REPAIR SUPERVISOR 1,000 mg Carrier Fluids for Secondary Infusion - 0.9% Sodium Chloride 30 mL, intravenous, As needed, For priming tubing and/or flushing, Starting on Thu02/09/24 at 0918, Pre-Op, 0-250 ml/hr to flush line after IV infusions when no maintenance IV ordered. Infuse 30mL at the same rate as the secondary infusion. Run as primary IV, not intended for KVO. Lactated Ringer's (LR) infusion 30 mL/hr, intravenous, Continuous, Starting on Thu02/09/24 at 1000, Pre-Op New Bag 02/09/2024 1:46 PM SUPERCHARGER REPAIR SUPERVISOR Rate/Dose Verify 02/09/2024 12:48 PM SUPERCHARGER REPAIR SUPERVISOR 30 mL/ hr New Bag 02/09/2024 9:27 AM SUPERCHARGER REPAIR SUPERVISOR 30 mL/hr 30 mL/hr Ri ght Hand sodium chloride 0.9% flush 0.5-20 mL 0.5-20 mL, intra-catheter, As needed, line care, Starting on Thu02/09/24 at 0918, Pre-Op, Flush volume based on line type and size. Flush before and after each use. sodium chloride 0.9% infusion 30 mL/hr, intravenous, Continuous, Starting on Thu02/09/24 at 1000, Pre-Op sodium chloride 0.9% irrigation As needed, Starting on Thu02/09/24 at 1306, Intra-Op Given 02/09/2024 1:06 PM SUPERCHARGER REPAIR SUPERVISOR 500 mL Surgical Site documented in this encounter Discontinued Medications Medication Sig Discontinue Reason Start Date End Da te acetaminophen 500 mg capsule Take 2 capsules (1,000 mg total) by mouth every 6 (six) hours as needed for pain Therapy completed 07/24/2022 02/02/2024 doxycycline 100 mg tablet Take 1 tablet (100 mg total) by mouth 2 (two) times a day Therapy completed 09/18/2023 02/02/2024 HYDROcodone-acetaminoph en (NORCO) 5-325 mg per tabletIndications:Pain Take 1 tablet by mouth every 6 (six) hours as needed for pain Therapy completed 11/04/2022 02/02/2024 levothyroxine (SYNTHROID) 25 mcg tabletIndications:hypot hyroidism Take 1 tablet (25 mcg total) by mouth every other day Therapy completed 04/09/2022 02/02/2024 meloxicam (MOBIC) 15 mg tablet TAKE 1/2 TABLET PO TWICE DAILY Therapy completed 11/04/2022 02/02/2024 documented as of this encounter Active and Recently Administered Medications Times are shown in SUPERCHARGER REPAIR SUPERVISOR. Scheduled Medication Order 02/07/2024 02/08/2024 02/09/2024 acetaminophen (TYLENOL) tablet 1,000 mg (COMPLETED) 1,000 mg, oral, Once, On Thu02/09/24 at 1000, For 1 dose, Pre-Op, Indications: Pre-Emptive Analgesia 0929 (Given - Provid er: Celena Evans RN) ceFAZolin (ANCEF) 2,000 mg/50 mL in dextrose (premix) 2,000 mg (COMPLETED) 2,000 mg, intravenous, at 100 mL/hr, Administer over 30 Minutes, Once, On Thu02/09/24 at 1000, For 1 dose, Pre-Op, Administer within 60 minutes of incision. Duplex bag - activate before hanging., Indications: Prophylaxis, Surgical 1254 (Given - Provid er: Glen Leyva CRNA) sodium chloride 0.9% flush 0.5-20 mL 0.5-20 mL, intra-catheter, Every 8 hours scheduled, First dose on Thu02/09/24 at 1400, Pre-Op, Flush volume based on line type and size. 1400 (Due) Continuous Medication Order 02/07/2024 02/08/2024 02/09/2024 Lactated Ringer's (LR) infusion 30 mL/hr, intravenous, Continuous, Starting on Thu02/09/24 at 1000, Pre-Op 0927 (New Bag - Prov ider: Celena Evans RN)1248 (Rate/Dose Verify - Provider: Glen Leyva CRNA)1345 (Paused - Provider: Glen Leyva CRNA - Comment: Switch to gravity)1346 (New Bag - Provider: Glen Leyva CRNA)1854 (Due: Stopped) sodium chloride 0.9% infusion 30 mL/hr, intravenous, Continuous, Starting on Thu02/09/24 at 1000, Pre-Op 1000 (Due) PRN Medication Order 02/07/2024 02/08/2024 02/09/2024 Carrier Fluids for Secondary Infusion - 0.9% Sodium Chloride 30 mL, intravenous, As needed, For priming tubing and/or flushing, Starting on Thu02/09/24 at 0918, Pre-Op, 0-250 ml/hr to flush line after IV infusions when no maintenance IV ordered. Infuse 30mL at the same rate as the secondary infusion. Run as primary IV, not intended for KVO. fentaNYL (SUBLIMAZE) preservative free syringe 50 mcg 50 mcg, intravenous, Every 10 min PRN, 1st line for pain, Starting on Thu02/09/24 at 1353, Phase I, Notify Anesthesiologist if total PACU dose reaches 100 mcg and pain score 5/10 or more., Indications: Pain naloxone (NARCAN) 0.4 mg/mL injection 0.04-0.4 mg 0.04-0.4 mg, intravenous, Once as needed, other, excessive sedation/respiratory depression, Starting on Thu02/09/24 at 1353, For 1 dose, Phase I, Dilute 0.4 mg with 9 mL NS (final concentration 0.04 mg/mL). For respiratory depression (respiratory rate less than 6), administer 0.4 mg IVP over 30 seconds. For excessive sedation administer 0.04 mg (1 mL) every 1 minute until desired level of alertness. For IV, administer over 30 seconds., Indications: Opioid Toxicity ondansetron (ZOFRAN) injection 4 mg 4 mg, intravenous, Administer over 2 Minutes, Once as needed, nausea, vomiting, Starting on Thu02/09/24 at 1353, For 1 dose, Phase I, Proceed to prochlorperazine if ondansetron has been given within the last 4 hours. oxyCODONE (ROXICODONE) tablet 5 mg 5 mg, oral, Once as needed, other, 4th line for pain - 2nd line PO medication ( after APAP) if pain >5/10, Starting on Thu02/09/24 at 1353, For 1 dose, Phase I, 2nd line PO medication ( after APAP) if pain >5/10, Indications: Pain prochlorperazine (COMPAZINE) injection 5 mg 5 mg, intravenous, Administer over 2 Minutes, Every 10 min PRN, nausea, vomiting, Starting on Thu02/09/24 at 1353, For 2 doses, Phase I, If nausea/vomiting not relieved by ondansetron within 30 minutes or if ondansetron has been given within the last 4 hours. sodium chloride 0.9% flush 0.5-20 mL 0.5-20 mL, intra-catheter, As needed, line care, Starting on Thu02/09/24 at 0918, Pre-Op, Flush volume based on line type and size. Flush before and after each use. sodium chloride 0.9% flush 0.5-20 mL 0.5-20 mL, intra-catheter, As needed, line care, Starting on Thu02/09/24 at 0918, Pre-Op, Flush volume based on line type and size. Flush before and after each use. sodium chloride 0.9% irrigation (CANCELED) As needed, Starting on Thu02/09/24 at 1306, Intra-Op 1306 (Given - Provid er: Ry York MD) documented in this encounter Orders Medications Ordered That Reece ht Not Have Been Administered Count Last Ordered Date First Ordered Date Carrier Fluids for Secondary Infusion - 0.9% Sodium Chloride 1 02/09/2024 ceFAZolin (ANCEF) 2,000 mg/5 0 mL in dextrose (premix) 2,000 mg 1 02/09/2024 fentaNYL (SUBLIMAZE) preserv ative free syringe 50 mcg 1 02/09/2024 naloxone (NARCAN) 0.4 mg/mL injection 0.04-0.4 mg 1 02/09/2024 ondansetron (ZOFRAN) injection 4 mg 1 02/08 oxyCODONE (ROXICODONE) tablet 5 mg 1 2023 prochlorperazine (COMPAZINE) injection 5 mg 1 02/09/2024 sodium chloride 0.9% flush 0.5-20 mL 3 01/30 sodium chloride 0.9% infusion 1 02/09/2024 Discharge Count Last Ordered Date First Orde red Date DISCHARGE PATIENT 1 02/11/2024 documented in this encounter Care Teams Head Grinder Relationship Specialty Start Date End Date Jaylon Gudino MD [address] [place] [address] PCP - General Internal Medicine 10/24/22 Jaylon Gudino MD [address] [place] [address] 07/23/22 documented as of this encounter
--- OUTSIDE RECORDS SUMMARY | 2024-03-03 11:39 | XMS_ITS | Encounter Summary ---
Author Organization [facility] Healthcare Address [address] [place] [address] Care Team Providers Care Direct Mail Clerk Name Role Phone Jaylon Gudino MD Unavailable [phone] Jaylon Gudino MD Primary Care Provider [phone] Reason for Visit * Reason Comments OT Treatment * Consultation (Routine) - Authorized Specialty Diagnoses / Procedures Referred By Lilly kraft Referred To Contact Occupational Therapy Diagnoses Rupture of flexor sheath mame of finger Jaylen, Ry Man MD [address] [place] [address] Phone: tel: fax: External Order Referral ID Status Reason Start Date Expiration Date Visits Requested Visits Authorized [id number] Authorized Specialty Services Required 4 01/16/2025 40 40 Encounter Details Date Type Department Care Team (Late st Contact Info) Description 02/22/2024 1:00 PM TRANSLATIONAL SPECIALIST Therapy [facility] Occupational Therapy [address] [place] [address] Karen Elias OT [address] [place] [address] Injury of left hand, subsequent encounter (Primary [...] on file Legal Sex Male 3:56 AM TRANSLATIONAL SPECIALIST Gender Identity Not on file Sexual Orientation Not on file documented as of this encounter Progress Notes * Karen Elias, OT - 02/22/2024 1:00 PM CST Occupational Therapy Visit OT Daily Treatment Note Bacilio Ramirez 1945 Subjective: Pain: 0/10 Patient has some redness in his left LF. Objective: No objective measurements were taken this date. Treatment Provided: Aggressive PROM for LF flexion and extension x's 15 reps Aggressive PROM for LF hook fist x's 15 reps Patient completed AROM for PIP and DIP blocking of LF Patient completed AROM exercises for composite flexion/extension Removed distal and proximal sutures and every other suture across PIP joint. Applied band aid, adaptic, and band net applied to incision. Assessment: Patient continues to have increased swelling in left LF. He continues to have limited AROM of left SF. He continues to have limited SF PIP extension. However, his extension is better than it was prior to surgery. His incision is healing well with no signs of infection. He has no pain at rest but [...] to continue plan of care. Start Time: 1:00 PM End Time: 1:45 PM Karen Elias OTR/L SLATIONAL SPECIALIST documented in this encounter Plan of Treatment Not on file documented as of this encounter Visit Diagnoses Diagnosis Injury of left hand, subsequent encounter- Primary documented in this encounter Care Teams Direct Mail Clerk Relationship Specialty Start Date End Date Jaylon Gudino MD [address] [place] [address] PCP - General Internal Medicine 10/24/22 Jaylon Gudino MD [address] [place] [address] 07/23/22 documented as of this encounter
--- OUTSIDE RECORDS SUMMARY | 2024-03-03 11:39 | XMS_ITS | Encounter Summary ---
Author Organization [facility] Address [address] [place] [address] Phone Care Team Providers Care Professional Architect Name Role Phone Jaylon Gudino MD Unavailable [phone] Jaylon Gudino MD Primary Care Provider [phone] Encounter Details Date Type Department Care Team (Late st Contact Info) Description 02/15/2024 1:20 PM PAPER CORE MACHINE OPERATOR Office Visit [facility] [address] [place] [address] Ry York MD [address] [place] [address] Injury of left hand, initial encounter (Primary Dx) Social History Tobacco Use [...] on file Legal Sex Male 3:56 AM PAPER CORE MACHINE OPERATOR Gender Identity Not on file Sexual Orientation Not on file documented as of this encounter Progress Notes * Ry York MD - 02/15/2024 1:20 PM CST POSTOPERATIVE VISIT INTERIM HISTORY The patient is now 4 after left middle finger flexor tenolysis, 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 Attended therapy last week, has been working with Karen Elias. He has noticed some improvement in motion compared to before surgery. PHYSICAL EXAMINATION Wounds are healing well, sutures left in place. No signs of infection. No warmth or drainage. Has some difficulty replicating differential guide of his FDS and FDP, but is able to do it eventually. His PIP joint is in approximately 30?? of flexion. REVIEW OF X-RAYS/STUDIES None today IMPRESSION/DIAGNOSIS/PLAN We discussed intraoperative findings, recommended that we continue working on range of motion, maintaining active flexion as well as working on passive extension. Sutures can come out at therapy in 7-10 days, or he can come back here for suture removal. We will see him back in 3-4 weeks for repeat clinical assessment. Ultimately, a digit widget may be an option for him to seek additional passive extension. Ry York M.D. Production Line Operator Hand and Upper Extremity [facility] Dr. York is dictating using speech recognition software. [facility] Shift Lead variances may occur. R CORE MACHINE OPERATOR documented in this encounter Plan of Treatment Not on file documented as of this encounter Visit Diagnoses Diagnosis Injury of left hand, initial encounter- Primary documented in this encounter Care Teams Professional Architect Relationship Specialty Start Date End Date Jaylon Gudino MD [address] [place] [address] PCP - General Internal Medicine 10/24/22 Jaylon Gudino MD [address] [place] [address] 07/23/22 documented as of this encounter
--- OUTSIDE RECORDS SUMMARY | 2024-03-03 11:39 | XMS_ITS | Encounter Summary ---
Author Organization [facility] Healthcare Address [address] [place] [address] Care Team Providers Care Mechanical Design Engineer Facilities Name Role Phone Jaylon Gudino MD Unavailable Jaylon Gudino MD Primary Care Provider [phone] Reason for Visit * Reason Comments OT Treatment * Consultation (Routine) - Authorized Specialty Diagnoses / Procedures Referred By Lilly kraft Referred To Contact Occupational Therapy Diagnoses Rupture of flexor sheath mame of finger Jaylen, Ry Man MD [address] [place] [address] Phone: tel: fax: External Order Referral ID Status Reason Start Date Expiration Date Visits Requested Visits Authorized [id number] Authorized Specialty Services Required 4 01/16/2025 40 40 Encounter Details Date Type Department Care Team (Late st Contact Info) Description 01/26/2024 9:15 AM REMEDIATION PROJECT ENGINEER Therapy [facility] Occupational Therapy 1 [place] [address] Karen Elias OT 1 [place] [address] Injury of left hand, subsequent encounter (Primary Dx) Social History Tobacco Use Types Packs/Day Years Used Date Smoking Tobacco: Former Cigarettes Q uit: 1989 Smokeless Tobacco: Never AUDIT-C Answer Date Recorded Frequency of Alcohol Consumption Not on file 10/21/2022 Q2: How many drinks containi ng alcohol do you have on a typical day when you are drinking? Patient does not drink Frequency of Binge Drinking Not on file 10/01 Personal Safety Answer Date Recorded Have you ever been in or are you currently in a harmful physical or emotional relationship or is someone making you feel afraid or unsafe? Denies 11/04/2022 Sex and Gender Information Value Date Recorded Sex Assigned at Not on file Legal Sex Male 3:56 AM REMEDIATION PROJECT ENGINEER Gender Identity Not on file Sexual Orientation Not on file documented as of this encounter Progress Notes * Karen Elias, OT - 01/26/2024 9:15 AM CST Occupational Therapy Visit OT Daily Treatment Note Bacilio Alvarado Ramirez 1945 Subjective: Pain: 0/10 Patient does not feel his finger is going to improve. Objective: Active Digit Range of Motion (left) Index Middle Ring Small MP 0/65 PIP -36/86 DIP -02/20 Treatment Provided: US to left volar RF at 3.3 MHz, 50% duty cycle x's 8 minutes for scar management. Therapist completed aggressive scar massage Therapist completed aggressive PROM for PIP extension with forearm supinated and hand resting on foam wedge x's 10 reps Therapist completed joint mobilization for PIP extension to increase ROM Patient completed reversed blocking x's 10 reps New measurements were taken this date. Assessment: Patient continues to present with decreased ROM of left LF. He has no pain but continues to have increased scar tissue. He has made minimal improvements. He has been using his LMB splint and completing his exercises. He tolerated all therapy activities. US does appear to soften scar tissue. Patientcontinues to verbalize a comfortable orthosis fit. He verbalized understanding of continuation of HEP. He would benefit from continued OT services. [...] as appropriate. Plan: Patient to return to MD on 02/01/24. Will await new orders from MD if patient is to continue therapy. Start Time: 9:20 AM End Time: 10:00 AM Karen Elias OTR/L DIATION PROJECT ENGINEER documented in this encounter Plan of Treatment Not on file documented as of this encounter Visit Diagnoses Diagnosis Injury of left hand, subsequent encounter- Primary documented in this encounter Care Teams Mechanical Design Engineer Facilities Relationship Specialty Start Date End Date Jaylon Gudino MD [address] [place] [address] PCP - General Internal Medicine 10/24/22 Jaylon Gudino MD [address] [place] [address] 07/23/22 documented as of this encounter
--- OUTSIDE RECORDS SUMMARY | 2024-03-03 11:39 | XMS_ITS | Encounter Summary ---
Author Organization [facility] Healthcare Address [address] [place] [address] Care Team Providers Care House Manager Name Role Phone Jaylon Gudino MD Unavailable [phone] Jaylon Gudino MD Primary Care Provider [phone] Reason for Visit * Reason Comments OT Treatment * Consultation (Routine) - Authorized Specialty Diagnoses / Procedures Referred By Lilly krfat Referred To Contact Occupational Therapy Diagnoses Rupture of flexor sheath mame of finger Jaylen, Ry Man MD [address] [place] [address] Phone: tel: fax: External Order Referral ID Status Reason Start Date Expiration Date Visits Requested Visits Authorized [id number] Authorized Specialty Services Required 4 01/16/2025 40 40 Encounter Details Date Type Department Care Team (Late st Contact Info) Description 02/16/2024 1:45 PM METAL MODEL MAKER Therapy [facility] Occupational Therapy 1 [place] [address] Karen Elias OT 1 [place] [address] Injury of left hand, subsequent encounter (Primary [...] you are drinking? Patient does not drink 4 Q3: How often do you have si [...] on file Legal Sex Male 3:56 AM METAL MODEL MAKER Gender Identity Not on file Sexual Orientation Not on file documented as of this encounter Progress Notes * Karen Elias, OT - 02/16/2024 1:45 PM CST OT Daily Treatment Note Bacilio Ramirez 1945 Subjective: Pain: 03/11 Location: left LF Patient states his finger continues to bleed with exercises. Per patient the MD had his finger completely straight in surgery. Objective: No objective measurements were taken this date. Treatment Provided: Aggressive PROM for LF flexion and extension x's 15 reps Wound care: applied adaptic, band net, and gauze. Issued more bandaging supplies Therapist completed PROM extension on table top Patient completed AROM exercises for composite flexion/extension Patient completed AROM hook fist Assessment: Patient continues to have increased swelling [...] therapy to continue plan of care. Start blocking exercises. Start Time: 1:50 PM End Time: 2:30 PM Karen Elias OTR/L L MODEL MAKER documented in this encounter Plan of Treatment Not on file documented as of this encounter Visit Diagnoses Diagnosis Injury of left hand, subsequent encounter- Primary documented in this encounter Care Teams House Manager Relationship Specialty Start Date End Date Jaylon Gudino MD [address] [place] [address] PCP - General Internal Medicine 10/24/22 Jaylon Gudino MD [address] [place] [address] 07/23/22 documented as of this encounter
--- OUTSIDE RECORDS SUMMARY | 2024-03-03 11:39 | XMS_ITS | Encounter Summary ---
Author Organization [facility] Healthcare Address [address] [place] [address] Care Team Providers Care Radar Mechanic Name Role Phone Jaylon Gudino MD Unavailable [phone] Jaylon Gudino MD Primary Care Provider [phone] Reason for Referral * Consultation (Routine) - Closed Specialty Diagnoses / Procedures Referred By Lilly kraft Referred To Contact Occupational Therapy Diagnoses Contracture of muscle of left hand Ry York MD [address] [facility] [address] [place] [address] Phone: tel: fax: [email or web address] [place] [address] [place] [address] Phone: tel: fax: Referral ID Status Reason Start Date Expiration Date V isits Requested Visits Authorized [id number] Closed Specialty Services Required 02/11/2024 03/12/2025 20 20 Question Answer PTRFR OT Evaluate and Treat Therapy options discussed with patient? Yes Location provided for therapy services is: Patient requested/Patient preferred Please select the performing region: External Order [171] To loc/pos [email or web address] [place] [[id number]] Comments Hand Therapy Evaluate and Treat Frequency/Duration: 2-3x/wk x 4-6 weeks ROM: unrestricted and aggressive digit AROM and PROM, no restrictions Edema control Wound care PER COUNTERS Reason for Visit * Auth/Cert (Routine) Specialty Diagnoses / Procedures Referred By Contac t Referred To Contact Diagnoses Stiffness of finger joint of left hand Stiffness of finger joint of left hand [M25.642] Procedures AK TENOLYSIS FLEXOR TENDON PALM/FINGER EACH TENDON Left Middle Finger Flexor TENOLYSIS and proximal interphalangeal capsular contracture release Left Proximal interphalangeal capsular contracture release Referral ID Status Reason Start Date Expiration Date Visits Re quested Visits Authorized [id number] 1 1 Encounter Details Date Type Department Care Team (Late st Contact Info) Description 02/09/2024 8:55 AM CLIPPER COUNTERS - 02/09/2024 2:54 PM CLIPPER COUNTERS Hospital Encounter [facility] Surgery at [facility] [address] [facility] [place] [address] Ry York MD [address] [facility] [address] [place] [address] Stiffness of finger joint of left hand (Primary Dx); Contracture of muscle of left hand Discharge Disposition: Discharge to home or self care Social History Tobacco Use Types Packs/Day Years [...] on file Legal Sex Male 3:56 AM CLIPPER COUNTERS Gender Identity Not on file Sexual Orientation Not on file documented as of this encounter Last Filed Vital Signs Vital Sign Reading Time Taken Comments Blood Pressure 135/90 02/09/2024 2:30 PM CLIPPER COUNTERS Pulse 56 02/09/2024 2:30 PM CLIPPER COUNTERS Temperature 36.2 ??C (97.2 ??F) 02/09/2024 1:54 PM CS T Respiratory Rate 14 02/09/2024 2:30 PM CLIPPER COUNTERS Oxygen Saturation 95% 02/09/2024 2:30 PM CLIPPER COUNTERS Inhaled Oxygen Concentration - - Weight 81.6 kg (180 lb) 02/09/2024 9:19 AM CLIPPER COUNTERS Height 176.5 cm (5' 9.5 ) 02/09/2024 9:19 AM CLIPPER COUNTERS Body Mass Index 26.2 02/09/2024 9:19 AM CLIPPER COUNTERS documented in this encounter Discharge Instructions * Discharge Instructions* Ry York MD - 02/09/2024 1:44 PM CLIPPER COUNTERS POSTOPERATIVE INSTRUCTIONS - Dr. York Follow-up Appointments Your first postoperative visit with Dr. York is listed on the first page of your discharge instructions. You will also need to see a hand therapist in 3 days. Please call your hand therapist (Karen Elias at [facility]) to set this up - Dr. York will send a prescription. [facility] Occupational Therapy [address] [place] [address] Dressing and Wound Care A large dressing [...] elevating hand/arm PAIN MEDICATION: A prescription for Baggs has been electronically sent into your pharmacy. [...] During business hours (Thu-Thu 8am-4:30pm) Dr. York's Isotope Hydrologist: YVONNE TAN - phone: [phone] It is unlikely that the phone will be answered ???live?? since our team members are typically in clinics during the day. Please leave a message - our team checks these regularly throughout the day. After hours/weekend (Emergencies Only; no medication refills) [facility] Medical Exchange: [phone] or toll-free Medications/prescriptions will not be refilled through this emergency exchange line. PER COUNTERS PER COUNTERS * Attachments The following attachments cannot be sent through Care Everywhere. 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 Notes in particular that he has an [...] have been included above. Ry York M.D. Box Stamper Hand and Upper Extremity [facility] Dr. York is dictating using speech recognition software. Director Investor Relations variances may occur. PER COUNTERS documented in this encounter Miscellaneous Notes * Op Note - Ry York MD - 02/09/2024 1:11 PM CST OPERATIVE REPORT SURGEON Ry York MD, MPH HAT TRIMMER Dedrick Sneed MD PREOPERATIVE and POSTOPERATIVE DIAGNOSES [...] scrubbed for the entire surgery . . PER COUNTERS * Pre-Procedure Instructions - Thais Og NP - 02/02/2024 12:25 PM CST [facility] CPAP Clinic Location: [facility] The night before your surgery: * Do [...] of surgery * If having surgery at [facility], you may want to bring a credit card if you want to use our Mobile Pharmacy for your discharge medications. Mobile pharmacy is not available at [facility], the Orthopedic Center, or the [place] [facility]. Outpatient Surgery: * You must have a [...] You have started taking any new medications PER COUNTERS * Perioperative Nursing Note - Maria Tripathi RN - 02/02/2024 9:31 AM CLIPPER COUNTERS [facility] Planning Perioperative Nursing Note Telephone Preoperative Evaluation ([facility]) - TELEPHONE ONLY, NO PHYSICAL EXAM Date: 02/02/24 This assessment was completed with the patient. Vitals: 02/02/24 0925 Weight: 84.8 kg (187 lb) Height: 176.5 cm (5' 9.5 ) CHEST CIRCUMFERENCE: NA Social History Tobacco Use Smoking Status Former Current packs/day: 0.00 Types: Cigarettes Quit date: 1989 Years since quittin.9 Smokeless Tobacco Never Substance [...] total) by mouth every morning Implants Clip Ziarcos Recyclebankian [place] Cartridge Micro Clip Internal Titanium Hemostatic [id number] - [id number] - Implanted (Left) Hand Inventory item: Tailwind Transportation SoftwareIAN [place] Cartridge Micro Clip Internal Titanium Hemostatic [id number] Model/Cat number: [id number] Production Reproduction Manager: Hydrostor Allian Lot number: [id number] As of 07/23/2022 Status: Implanted Hydrostor Allian Hemoclip Superfine Clip Internal [id number] - [id number] - Implanted (Left) Hand Inventory item: [employer] ALLIAN Hemoclip Superfine Clip Internal [id number] Model/Cat number: [id number] Production Reproduction Manager: Hydrostor Allian Lot number: [id number] As of 07/23/2022 Status: Implanted Type Not Specified Axogen Inc Avance 2-3mm 50mm Allograft Multiple Clean Graft Soft Tissue [id number] - [id number] - Implanted (Left) Hand Inventory item: Matter[employer]OG[employer] INC Avance 2-3mm 50mm Allograft Multiple Clean Graft Soft Tissue [id number] Model/Cat number: [id number] Production Reproduction Manager: Axogen Inc Lot number: [id number] Size: 2-3mm x 50mm As of 07/23/2022 Status: Implanted Bergen Medical Productsian [place] Cartridge Micro Clip Internal Titanium Hemostatic [id number] - [id number] - Implanted (Left) Hand Inventory item: Tailwind Transportation SoftwareIAN [place] Cartridge Micro Clip Internal Titanium Hemostatic [id number] Model/Cat number: [id number] Production Reproduction Manager: Bergen Medical Productsian Lot number: [id number] As of 07/23/2022 Status: Implanted Bergen Medical Productsian Hemoclip Superfine Clip Internal [id number] - [id number] - Implanted (Left) Hand Inventory item: My 1% Hemoclip Superfine Clip Internal [id number] Model/Cat number: [id number] Production Reproduction Manager: Bergen Medical Productsjohn Lot number: [id number] As of 07/23/2022 Status: Implanted Integra lmbang Integra 2x2in Bilayer Matrix Dressing Biological Bovine Collagen Latex Free [id number] - [id number] - Implanted (Left) Hand Inventory item: INTEGRA [employer] Integra [id number] Bilayer Matrix Dressing Biological BovineCollagen Latex Free [id number] Model/Cat number: [id number] Production Reproduction Manager: Integra lmbang Lot number: [id number] Device identifier: [id number] Device identifier type: GS1 As of 07/23/2022 [...] expects to be discharged to: Private residence (Gas Turbine Mechanic and terrazzo polisher: [employer]) PRIMARY CARE PHYSICIAN NO ADDITIONAL COMMENTS/ FOLLOW UP PER COUNTERS * Pre-Procedure Instructions - Maria Tripathi RN - 02/02/2024 9:29 AM CLIPPER COUNTERS [facility] (CPAP) [...] remove nail coverings, artificial nails and nail british prior to the day of surgery. This is to lower your risk of infection and to allow the day of surgery team to monitor your oxygen levels. You should leave your valuables and any jewelry at home. No metal or piercings are allowed in the operating room. You should bring your insurance card, a photo ID (example: Gas Turbine Mechanic's License) and a method of payment for [...] Chart. If you are having surgery at [facility], please arrive on the day of surgery [...] Remove nail coverings, artificial nails and nail british. The Morning of Surgery: Take a shower [...] questions, please call the CPAP Staff at [phone], Thursday-Thursday 8am-4:30pm. All patients should read the below section: Information on [facility] CAM & the Orthopedic Center: Please view [email or web address] (Patient & Visitor Information) for additional details regarding Advanced Directive forms, AWARE, directions, parking information, lodging, Internet access, dining and more. For MyChart information, to activate account or password recovery, please go to [email or web address] or call [phone] (toll-free: [phone]), Thu- Thursday 8am-5pm. Information for Suicide Prevention: National Suicide Prevention Lifeline (7-572- 001-XLCA (5065)) or call or text [employer]. Chat resources: [email or web address]. Surgery Times: For patients having surgery @ [facility] or [facility] ([facility]), if your surgeon's office has not notified you of your surgery time by NOON THE BUSINESS DAY BEFORE your surgery, please call [phone] and ask for your surgeon's office Dr. Ry York. The [facility] for Preoperative Assessment & Planning (CPAP) does not provide arrival times for theday of surgery or provide the duration of surgery. This information is provided by your surgeon's office or by the center where you are having surgery. We appreciate your understanding. PER COUNTERS documented in this encounter Plan of Treatment Scheduled Referrals Name Type Priority Associated Diagnoses Order Schedule Ambulatory referral order to Occupational Therapy - Outpatient Referral Routine Contracture of muscle of left hand Ordered: 02/11/2024 documented as of this encounter Procedures Procedure Name Priority Date/Time Associated Diagnosis Comments RELEASE CONTRACTURE OF UPPER EXTREMITY 02/09/2024 12:49 PM CLIPPER COUNTERS Stiffness of finger joint of left hand Case Notes 02/04@1347: lineup change per Yvonne via email. BR TENOLYSIS - UPPER EXTREMITY 02/09/2024 12:49 PM CLIPPER COUNTERS Stiffness of finger joint of left hand Case Notes 02/04@1347: lineup change per Yvonne via email. BR documented in this encounter Visit Diagnoses Diagnosis Stiffness of finger joint of left hand- Primary Stiffness of finger joint of left hand Contracture of muscle of left hand documented in this encounter [...] Pre-Emptive AnalgesiaIndications:Pre-Emptive Analgesia Given 02/09/2024 9:29 AM CLIPPER COUNTERS 1,000 mg Carrier Fluids for Secondary Infusion [...] 1000, Pre-Op New Bag 02/09/2024 1:46 PM CLIPPER COUNTERS Rate/Dose Verify 02/09/2024 12:48 PM CLIPPER COUNTERS 30 mL/ hr New Bag 02/09/2024 9:27 AM CLIPPER COUNTERS 30 mL/hr 30 mL/hr Ri ght Hand sodium chloride 0.9% flush 0.5-20 mL 0.5-20 mL, intra-catheter, As needed, line care, Starting on Thu02/09/24 at 0918, Pre-Op, Flush volume based on line type and size. Flush before and after each use. sodium chloride 0.9% infusion 30 mL/hr, intravenous, Continuous, Starting on Thu02/09/24 at 1000, Pre-Op documented in this encounter Discontinued Medications Medication [...] Recently Administered Medications Times are shown in CLIPPER COUNTERS. Scheduled Medication Order 02/07/2024 02/08/2024 02/09/2024 acetaminophen [...] 01/30 sodium chloride 0.9% infusion 1 02/09/2024 sodium chloride 0.9% irrigation 1 4 Discharge Count Last Ordered Date First Orde red Date DISCHARGE PATIENT 1 02/11/2024 documented in this encounter Care Teams Radar Mechanic Relationship Specialty Start Date End Date Jaylon Gudino MD [address] [place] [address] PCP - General Internal Medicine 10/24/22 Jaylon Gudino MD [address] [place] [address] 07/23/22 documented as of this encounter
--- OUTSIDE RECORDS SUMMARY | 2024-03-03 11:39 | XMS_ITS | Encounter Summary ---
Author Organization [facility] Healthcare Address [address] [place] [address] Care Team Providers Care Machinist Class B Name Role Phone Jaylon Gudino MD Unavailable [phone] Jaylon Gudino MD Primary Care Provider [phone] Reason for Visit * Reason Comments OT Treatment * Consultation (Routine) - Authorized Specialty Diagnoses / Procedures Referred By Lilly kraft Referred To Contact Occupational Therapy Diagnoses Rupture of flexor sheath mame of finger Jaylen, Ry Man MD [address] [facility] [address] [place] [address] Phone: tel: fax: External Order Referral ID Status Reason Start Date Expiration Date Visits Requested Visits Authorized [id number] Authorized Specialty Services Required 4 01/16/2025 40 40 Encounter Details Date Type Department Care Team (Late st Contact Info) Description 02/12/2024 2:30 PM MOUTHPIECE MAKER Therapy [facility] Occupational Therapy [address] [place] [address] Karen Elias OT 1 [place] [address] Injury of left hand, subsequent encounter (Primary [...] on file Legal Sex Male 3:56 AM MOUTHPIECE MAKER Gender Identity Not on file Sexual Orientation Not on file documented as of this encounter Progress Notes * Karen Elias, OT - 02/12/2024 2:30 PM CST Occupational Therapy Visit OT Daily Treatment Note Bacilio Ramirez 1945 Subjective: Pain: 0/10 Patient arrived to therapy with his post op dressing on his left upper extremity. He has new ordersfor post op protocol. Date of surgery: 02/09/24 Order: Hand Therapy Evaluate and Treat Frequency/Duration: 2-3x/wk x 4-6 weeks ROM: unrestricted and aggressive digit AROM and PROM, no restrictions Edema control Wound care Objective: No objective measurements were taken this date. Incision is healing well with no signs of infection. Treatment Provided: Therapist removed post op dressing, minimal bleeding noted Therapist covered incision with adaptic, band net, and gauze. Therapist completed PROM for composite flexion/extension x's 15 reps Educated patient to complete PROM for composite flexion and extension for HEP Educated patient on tendon gliding exercises - for HEP Educated patient on edema management. Assessment: Patient had surgery on 02/09/24. He has increased swelling in left LF. He continues to have limitedAROM of left SF. He continues to have limited SF PIP extension during PROM. His incision is healingwell with no signs of infection. His incision [...] Will add more goals as appropriate. Plan: Will take new measurements at next visit. Patient to return to therapy to continue plan of care. Will completed aggressive ROM. Start Time: 2:35 PM End Time: 3:15 PM Karen Elias OTR/L HPIECE MAKER documented in this encounter Plan of Treatment Not on file documented as of this encounter Visit Diagnoses Diagnosis Injury of left hand, subsequent encounter- Primary documented in this encounter Care Teams Machinist Class B Relationship Specialty Start Date End Date Jaylon Gudino MD [address] [place] [address] PCP - General Internal Medicine 10/24/22 Jaylon Gudino MD [address] [place] [address] 07/23/22 documented as of this encounter
--- OUTSIDE RECORDS SUMMARY | 2024-03-03 11:39 | XMS_ITS | Referral Summary ---
Author Organization [facility] Address [address] [place] [address] Care Team Providers Care Police Guard Name Role Phone Jaylon Gudino MD Unavailable [phone] Jaylon Gudino MD Primary Care Provider [phone] Encounters Date Type Department Care Team Description 02/22/2024 1:00 PM SENIOR AUDITOR Therapy [facility] Occupational Therapy [address] [place] [phone] Karen Elias, OT Injury of left hand, subsequent encounter (Primary Dx) 02/19/2024 10:00 AM SENIOR AUDITOR Therapy [facility] Occupational Therapy [address] [place] [id number] Karen Elias, OT Injury of left hand, subsequent encounter (Primary Dx) 02/16/2024 1:45 PM SENIOR AUDITOR Therapy [facility] Occupational Therapy [address] [place] [phone] Karen Elias, OT Injury of left hand, subsequent encounter (Primary Dx) 02/15/2024 1:20 PM SENIOR AUDITOR Office Visit [facility] Orthopaedic Surgery [address] [place] [address] Ry York MD Injury of left hand, initial encounter (Primary Dx) 02/12/2024 2:30 PM SENIOR AUDITOR Therapy [facility] Occupational Therapy [address] [place] [address] Karen Elias, OT Injury of left hand, subsequent encounter (Primary Dx) 02/09/2024 11:40 AM SENIOR AUDITOR - 02/09/2024 1:10 PM SENIOR AUDITOR Surgery [facility] Surgery at [facility] [address] [place] [phone] Ry York MD Left Middle Finger Flexor TENOLYSIS and proximal interphalangeal capsular contracture release 02/09/2024 12:48 PM SENIOR AUDITOR Anesthesia Event [facility] Surgery at [address] [address] Geronimo Dwyer MD Wiethuchter, Kelli P., FOOD SERVICE ORDER CLERK 02/09/2024 8:55 AM SENIOR AUDITOR - 02/09/2024 2:54 PM SENIOR AUDITOR Hospital Encounter [facility] Surgery at [address] [address] Ry York MD Stiffness of finger joint of left hand (Primary Dx); Contracture of muscle of left hand Discharge Disposition: Discharge to home or self care 02/01/2024 12:30 PM SENIOR AUDITOR Office Visit [facility] Orthopaedic Surgery [address] [place] [address] [address] [place] [address] Ry York MD Rupture of flexor sheath mame of finger (Primary Dx) 01/26/2024 9:15 AM SENIOR AUDITOR Therapy [facility] Occupational Therapy [address] [place] [phone] Karen Elias, OT Injury of left hand, subsequent encounter (Primary Dx) 01/25/2024 9:45 AM SENIOR AUDITOR Therapy [facility] Occupational Therapy [address] [place] [phone] Karen Elias, OT Injury of left hand, subsequent encounter (Primary Dx) 01/21/2024 10:00 AM SENIOR AUDITOR Therapy [facility] Occupational Therapy [address] [place] [phone] Karen Elias, OT Injury of left hand, subsequent encounter (Primary Dx) 01/18/2024 8:15 AM SENIOR AUDITOR Therapy [facility] Occupational Therapy [address] [place] [phone] Karen Elias, OT Injury of left hand, subsequent encounter (Primary Dx) 01/15/2024 9:15 AM SENIOR AUDITOR Therapy [facility] Occupational Therapy [address] [place] [phone] Karen Elias, OT Injury of left hand, subsequent encounter (Primary Dx) 01/12/2024 11:30 AM SENIOR AUDITOR Therapy [facility] Occupational Therapy [address] [place] [phone] Karen Elias, OT Injury of left hand, subsequent encounter (Primary Dx) 01/05/2024 Plan of Care Documentation [facility] Occupational Therapy [address] [place] [phone] 01/05/2024 11:00 AM SENIOR AUDITOR Therapy [facility] Occupational Therapy [address] [place] [phone] Karen Elias, OT Injury of left hand, subsequent encounter (Primary Dx) 12/18/2023 11:00 AM CDT Office Visit [facility] Orthopaedic Surgery [address] [place] [address] Dy, Ry Man MD Rupture of flexor sheath mame of finger (Primary Dx) from Last 3 Months Allergies Active Allergy Reactions Criticality Noted Date [...] in right shoulder 05/05/2011 Mixed hyperlipidemia 12/11/2009 Immunizations Name Administration Dates Next Due Tdap 07/23/2022 Social History Tobacco Use Types Packs/Day Years [...] on file Legal Sex Male 3:56 AM SENIOR AUDITOR Gender Identity Not on file Sexual Orientation Not on file Last Filed Vital Signs Vital Sign Reading Time Taken Comments Blood Pressure 135/90 02/09/2024 2:30 PM SENIOR AUDITOR Pulse 56 02/09/2024 2:30 PM SENIOR AUDITOR Temperature 36.2 ??C (97.2 ??F) 02/09/2024 1:54 PM CS T Respiratory Rate 14 02/09/2024 2:30 PM SENIOR AUDITOR Oxygen Saturation 95% 02/09/2024 2:30 PM SENIOR AUDITOR Inhaled Oxygen Concentration - - Weight 81.6 kg (180 lb) 02/09/2024 9:19 AM SENIOR AUDITOR Height 176.5 cm (5' 9.5 ) 02/09/2024 9:19 AM SENIOR AUDITOR Body Mass Index 26.2 02/09/2024 9:19 AM SENIOR AUDITOR Plan of Treatment Not on file Medical Devices Implanted Type Area Manager Payer Device Identifier Shelf Expiration Date Model / Serial / Lot [place] View2Gether Dixon Cartridge Micro Clip Internal Titanium Hemostatic [id number] - [id number] Implanted:Qty: 6 on 07/23/2022 by Vimal Stringer MD at [facility] Clip Left: Hand Nuhooks Interwise Allian 08/29/2026 [id number] / / [id number] [employer]s View2Gether Hemoclip Superfine Clip Internal [id number] - [id number] Implanted:Qty: 6 on 07/23/2022 by Vimal Stringer MD at [facility] Clip Left: Hand Synovis Interwise Allian 08/29/2026 [id number] / / [id number] Axogen Inc Avance 2-3mm 50mm Allograft Multiple Clean Graft Soft Tissue [id number] - [id number] Implanted:Qty: 1 on 07/23/2022 by Vimal Stringer MD at [facility] Left: Hand Axogen Inc 10/30/2024 [id number] / / [id number] Synovis Interwise Allian Dixon Cartridge Micro Clip Internal Titanium Hemostatic [id number] - [id number] Implanted:Qty: 1 on 07/23/2022 by Vimal Stringer MD at [facility] Left: Hand Synovis Micro Wantreez Music Allian 06/29/2026 [id number] / / [id number] Synovis Interwise Allian Hemoclip Superfine Clip Internal [id number] - [id number] Implanted:Qty: 1 on 07/23/2022 by Vimal Stringer MD at [facility] Left: Hand Synovis Interwise Allian 08/29/2026 [id number] / / [id number] Integra Lifesciences Samira Integra 2x2in Bilayer Matrix Dressing Biological Bovine Collagen Latex Free [id number] - [id number] Implanted:Qty: 1 on 07/23/2022 by Vimal Stringer MD at [facility] Left: Hand Integra Lifesciences Samira [id number] 07/31/2023 [id number] / / [id number] Procedures Procedure Name Priority Date/Time Associated Diagnosis Comments RELEASE CONTRACTURE OF UPPER EXTREMITY 02/09/2024 12:49 PM SENIOR AUDITOR Stiffness of finger joint of left hand Case Notes 02/04@1347: lineup change per [place] via email. BR TENOLYSIS - UPPER EXTREMITY 02/09/2024 12:49 PM SENIOR AUDITOR Stiffness of finger joint of left hand Case Notes 02/04@1347: lineup change per [place] via email. BR [place] AN PROCEDURE PLACEHOLDER Routine 02/09/2024 12:41 PM SENIOR AUDITOR [place] AN PROCEDURE PLACEHOLDER Routine 02/09/2024 12:40 PM SENIOR AUDITOR [place] ARTHROCENTESIS ASPIR&/INJ SMALL JT/BURSA W/O US Routine 12/18/2023 11:00 AM CDT Rupture of flexor sheath mame of finger from Last 3 Months Results * [place] AN PROCEDURE PLACEHOLDER (02/09/2024 12:41 PM SENIOR AUDITOR) Narrative Geronimo Dwyer MD - 02/09/2024 12:41 PM SENIOR AUDITOR Geronimo Dwyer MD ? 02/09/2024 12:42 PM [...] MD ANESTHESIA ORDERABLES Final Res ult * [place] AN PROCEDURE PLACEHOLDER (02/09/2024 12:40 PM SENIOR AUDITOR) Geronimo Sears MD - 02/09/2024 12:40 PM SENIOR AUDITOR Geronimo Dwyer MD ? 02/09/2024 12:41 PM [...] tolerated procedure well with no complications us Gernoimo Dwyer MD ANESTHESIA ORDERABLES Final Res ult * [place] ARTHROCENTESIS ASPIR&/INJ SMALL JT/BURSA W/O US (12/18/2023 [...] %); 40 mg methylPREDNISolone acetate 40 mg/mL us Ry York MD IN CLINIC/BEDSIDE ORDERAB LES Final Result from Last 3 Months Insurance MEDICARE MEDICARE MEDICARE Advance Directives For more information, please contact: [phone] * Full Code (Latest Code Status on File) Date Activated Date Inactivated Comments 07/23/2022 8:33 PM 07/24/2022 7:09 PM Care Teams Police Guard Relationship Specialty Start Date End Date Jaylon Gudino MD [address] [place] [address] PCP - General Internal Medicine 10/24/22 Jaylon Gudino MD [address] [place] [address] 07/23/22
--- OUTSIDE RECORDS SUMMARY | 2024-03-03 11:39 | XMS_ITS | Encounter Summary ---
Author Organization [facility] Address [address] [place] [address] Phone Care Team Providers Care Fishing Game Warden Name Role Phone Jaylon Gudino MD Unavailable [phone] Jaylon Gudino MD Primary Care Provider [phone] Encounter Details Date Type Department Care Team (Late st Contact Info) Description 02/01/2024 12:30 PM STRIP PRESSER Office Visit [facility] Orthopaedic Surgery [address] [place] [address] Ry York MD [address] [place] [address] Rupture of flexor sheath mame of finger (Primary Dx) Social History Tobacco Use Types Packs/Day Years Used Date Smoking Tobacco: Former Cigarettes Q uit: 1989 Smokeless Tobacco: Never AUDIT-C Answer Date Recorded Q1: How often do you have a drink containing alcohol? Never 02/02/2024 Q2: How many drinks containi ng alcohol do you have on a typical day when you are drinking? Patient does not drink Q3: How often do you have si x or more drinks on one occasion? Never 02/02/2024 Personal Safety Answer Date Recorded Have you ever been in or are you currently in a harmful physical or emotional relationship or is someone making you feel afraid or unsafe? Denies 11/04/2022 Sex and Gender Information Value Date Recorded Sex Assigned at Not on file Legal Sex Male 3:56 AM STRIP PRESSER Gender Identity Not on file Sexual Orientation Not on file documented as of this encounter Last Filed Vital Signs Vital Sign Reading Time Taken Comments Blood Pressure - - Pulse - - Temperature - - Respiratory Rate - - Oxygen Saturation - - Inhaled Oxygen Concentration - - Weight 84.8 kg (187 lb) 02/01/2024 12:22 PM STRIP PRESSER Height 175.3 cm (5' 9 ) 02/01/2024 12:22 PM STRIP PRESSER Body Mass Index 27.62 02/01/2024 12:22 PM STRIP PRESSER documented in this encounter [facility] * Ry York MD - 02/01/2024 12:30 PM CST RETURN PATIENT VISIT CHIEF COMPLAINT: Left long [...] 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 Notes in particular that he has an [...] his range of motion. He has minimal sensa tion at baseline so we do not worry [...] have been included above. Ry York M.D. Senior Production Manager Hand and Upper Extremity [facility] Dr. York is dictating using speech recognition software. Look Out Tower Fire Watcher variances may occur. P PRESSER documented in this encounter Plan of Treatment Not on file documented as of this encounter Visit Diagnoses Diagnosis Rupture of flexor sheath mame of finger- Primary documented in this encounter Care Teams Fishing Game Warden Relationship Specialty Start Date End Date Jaylon Gudino MD [address] [place] [address] PCP - General Internal Medicine 10/24/22 Jaylon Gudino MD [address] [place] [address] 07/23/22 documented as of this encounter
--- OUTSIDE RECORDS SUMMARY | 2024-03-03 11:39 | XMS_ITS | Encounter Summary ---
Author Organization [facility] Healthcare Address [address] [place] [address] Care Team Providers Care Flight Attendant Inflight Services Name Role Phone Jaylon Gudino MD Unavailable [phone] Jaylon Gudino MD Primary Care Provider [phone] Reason for Visit * Reason Comments OT Treatment * Consultation (Routine) - Authorized Specialty Diagnoses / Procedures Referred By Lilly kraft Referred To Contact Occupational Therapy Diagnoses Rupture of flexor sheath mame of finger Jaylen, Ry Man MD [address] [place] [address] Phone: tel: fax: External Order Referral ID Status Reason Start Date Expiration Date Visits Requested Visits Authorized [id number] Authorized Specialty Services Required 4 01/16/2025 40 40 Encounter Details Date Type Department Care Team (Late st Contact Info) Description 01/25/2024 9:45 AM CYTOGENETICIST Therapy [facility] Occupational Therapy [address] [place] [address] Karen Elias OT [address] [place] [address] Injury of left hand, subsequent encounter (Primary [...] on file Legal Sex Male 3:56 AM CYTOGENETICIST Gender Identity Not on file Sexual Orientation Not on file documented as of this encounter [facility] * Karen Elias, OT - 01/25/2024 9:45 AM CST Occupational Therapy Visit OT Daily Treatment Note Bacilio Childers James 1945 Subjective: Pain: 0/10 Patient does not feel his finger is going to improve. Objective: No objective measurements were taken this date. Treatment Provided: US to left volar RF at 3.3 MHz, 50% duty cycle x's 8 minutes for scar management. Therapist completed aggressive scar massage Therapist completed PROM for PIP extension with forearm supinated and hand resting on table x's 10 reps Therapist completed joint mobilization for PIP extension to increase ROM AROM composite flexion/extension x's 10 reps Assessment: Patient continues to present with decreased ROM of left LF. He has no pain but continues to have increased scar tissue. He has made minimal improvements. He has been using his LMB splint and completing his exercises. He tolerated all therapy activities. US did appear to soften scar tissue. Patient continues to verbalize a comfortable orthosis fit. He [...] to continue plan of care. Start Time: 9:45 AM End Time: 10:20 AM Karen Elias OTR/L GENETICIST documented in this encounter Plan of Treatment Not on file documented as of this encounter Visit Diagnoses Diagnosis Injury of left hand, subsequent encounter- Primary documented in this encounter Care Teams Flight Attendant Inflight Services Relationship Specialty Start Date End Date Jaylon Gudino MD [address] [place] [address] PCP - General Internal Medicine 10/24/22 Jaylon Gudino MD [address] [place] [address] 07/23/22 documented as of this encounter
--- OUTSIDE RECORDS SUMMARY | 2024-03-03 11:39 | XMS_ITS | Encounter Summary ---
Author Organization [facility] Healthcare Address [address] [place] [address] Care Team Providers Care Scratch Polisher Name Role Phone Jaylon Gudino MD Unavailable [phone] Jaylon Gudino MD Primary Care Provider [phone] Reason for Visit * Auth/Cert (Routine) Specialty Diagnoses / Procedures Referred By Lilly t Referred To Contact Diagnoses Stiffness of finger joint of left hand Stiffness of finger joint of left hand [M25.642] Procedures DC TENOLYSIS FLEXOR TENDON PALM/FINGER EACH TENDON Left Middle Finger Flexor TENOLYSIS and proximal interphalangeal capsular contracture release Left Proximal interphalangeal capsular contracture release Referral ID Status Reason Start Date Expiration Date Visits Re quested Visits Authorized [id number] 1 1 Encounter Details Date Type Department Care Team (Late st Contact Info) Description 02/09/2024 12:48 PM HEATING EQUIPMENT INSTALLER Anesthesia Event [facility] [address] [place] [address] Geronimo Dwyer MD [address] [facility] [place] [address] Thais Og NP [address] [facility] [address] Anesthesia Record Procedure Summary Procedure Name Responsible Anesthesiologist Anesthesia Start Time Anesthesia Stop Time Left Middle Finger Flexor TENOLYSIS and proximal interphalangeal capsular contracture release (Left: Hand) Geronimo Dwyer MD 02/09/24 1248 02/09/24 1354 Events Date Time Event Comment 02/09/2024 0947 1215 Start Supplemental O2 1215 Time out - Regional 1215 An Block Induction The patie nt was reevaluated immediately before moderate or deep sedation and before anesthesia induction. 1224 Block Placed 1226 Face Time 1248 An Start 1249 In Room 1252 An Start Data 1252 An Data Art 1252 Start Supplemental O2 1255 An Induction The patient was reevaluated immediately before moderate or deep sedation use and before anesthesia induction. 1309 Proc Start 1311 Incision Start 1348 Proc Fin 1350 Out of Room 1354 Handoff to RN I completed my handoff to the receiving nurse during which we: 1. Patient identified 2. Responsible provider identified 3. Pertinent medical history reviewed 4. Procedure type and surgical course discussed 5. Intraoperative anesthetic management and any significant issues discussed 6. Expectations and concerns for postop period discussed 7. Questions solicited from receiving nurse 8. Patient disposition at the time of handoff: PACU 1354 An Stop Meds Name Total fentaNYL 100 mcg bupivacaine 0.5 % PF 20 mL lidocaine (cardiac) syringe 2 % 40 mg propofol 224.4 mg ceFAZolin (ANCEF) 2,000 mg/50 mL in dext genesis (premix) 2,000 mg 2,000 mg Lactated Ringer's (LR) infusion 650 mL * Agents Name O2% N2O O2 N2O Air Sevoflurane Inspired Sevoflurane * Blood No blood administrations on file. Lines, Drains, and Airways Type Details Placement Removal Wound 02/09/24; 1306; N; Incision; Palm; Left 02/09/24 1306 by Charity Redd RN Peripheral IV Placement Date: 01/30 ; Placement Time: 924; Catheter Size: 20 G; Orientation: Right; Location: Hand; Site Prep: Chlorhexidine; Technique: Anatomical landmarks; Inserted by: Leigha Raymond RN; Insertion Attempts: 1; Patient Tolerance: Tolerated well; Removal Date: 02/09/24; Removal Time: 1444; Removal Reason: Discharge 02/09/24924 by Celena Evans RN 02/09/241444 by Celena Evans RN documented in this encounter Social History Tobacco [...] on file Legal Sex Male 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 Gender Identity Not on file Sexual Orientation Not on file documented as of this encounter OR Notes * Anesthesia Postprocedure Evaluation - Geronimo Dwyer MD - 02/09/2024 2:19 PM CST Patient: Bacilio Ramirez Procedure Summary Date: 02/09/24 Room / Location: [facility] OPERATING ROOM 01 / [facility] Operating Room Anesthesia Start: 1248 Anesthesia Stop: 1354 Procedures: Left Middle Finger Flexor TENOLYSIS and proximal interphalangeal capsular contracture release (Left: Hand) Left Proximal interphalangeal capsular contracture release (Left: Arm Lower) Diagnosis: Stiffness of finger joint of left hand (Stiffness of finger joint of left hand [M25.642]) Providers: Ry York MD Responsible Provider: Geronimo Dwyer MD Anesthesia Type: MAC, regional for postop pain per surgeon request ASA Status: 3 Anesthesia Type: MAC, regional for postop pain per surgeon request Last vitals BP 109/94 Pulse 57 Temp 36.2 ??C (97.2 ??F) (Temporal) Resp 13 SpO2 95% Anesthesia Post Evaluation Patient location during evaluation: PACU Patient participation: complete - patient participated Level of consciousness: fully awake Pain management: adequate Airway patency: adequate Cardiovascular status: acceptable and hemodynamically stable Respiratory status: acceptable and room air Hydration status: euvolemic Pt is: normothermic Nausea/Vomiting status: none Comments: Feeling well. Eating and joking. No notable events documented. ING EQUIPMENT INSTALLER * Anesthesia Procedure Notes - Geronimo Dwyer MD - 02/09/2024 12:41 PM HEATING EQUIPMENT INSTALLER Associated Order(s): Peripheral Block Images from the original note were not included. Peripheral Block Patient location during procedure: pre-op [...] on ultrasound, no paresthesias noted, see flowsheet formedication details and negative aspiration for heme Assessment: Block success: full evaluation pending Events: patient tolerated procedure well with no complications ING EQUIPMENT INSTALLER * Anesthesia Procedure Notes - Geronimo Dwyer MD - 02/09/2024 12:40 PM HEATING EQUIPMENT INSTALLER Associated Order(s): Peripheral Block Images from the original note were not included. Peripheral Block Patient location during procedure: pre-op [...] on ultrasound, no paresthesias noted, see flowsheet formedication details and negative aspiration for heme Assessment: Block success: full evaluation pending Events: patient tolerated procedure well with no complications ING EQUIPMENT INSTALLER * Anesthesia Preprocedure Evaluation - Geronimo Dwyer MD - 02/02/2024 12:27 PM CST Images from the original note were not included. [facility] Planning Preoperative Evaluation Record Evaluation type/location: TPAP from [facility] Planned procedure site: [facility] OR Date: 02/02/24 NOTE: This note represents a preoperative evaluation initiated via telephone interview. NO PHYSICALEXAM was performed at the time of initial assessment. A physical exam may be added to this note anddocumented below. Anesthesia Evaluation Bacilio Ramirez is a 78 y.o. male Left Middle Finger Flexor TENOLYSIS and proximal interphalangeal capsular contracture release (Left: Hand) Left Proximal interphalangeal capsular contracture release (Left: Arm Lower) Pre-Op Diagnosis Codes: * Stiffness of finger joint of left hand [M25.642] HISTORY HPI Bacilio Ramirez is 78year old male who is being evaluated prior to Left Middle Finger Flexor TENOLYSISand proximal interphalangeal capsular contracture release for Stiffness of finger joint of left hand. Other significant PMH: TIA, s/p left CEA 2014, HTN, HLD, AAA, hepatic steatosis, GERD, preDM. Past Medical History Information obtained from: patient and chart. Information obtained during: Telephone Visit NOTE: This note represents a preoperative evaluation initiated via virtual (video or telephone) interview. NO PHYSICAL EXAM was performed at the time of initial assessment. A physical exam may be added to this note and documented below. Neurological + TIA (reports no residual) Number of TIA episodes: 1. Date of last TIA: ~2013. + CEA - left. Date of last CEA: 2014. + ICA stenosis (s/p left CEA in 2014, last US in 2018) - left internal carotid artery and right internal carotid artery. Left ICA stenosis <50%. Right ICA stenosis <50% stenosis. Pertinent negatives: seizures; neuromuscular disease and CVA/stroke Cardiovascular + Hypertension (checks BP at home) Typical systolic BP - 135 Typical diastolic BP - 60 + Hyperlipidemia (on statin) + PAD/Aorta disease (Mild aneurysmal dilatation of the proximal abdominal aorta measuring 3.2 cm, previously 2.9 cm per US 09/2022 - followed by PCP) - current AAA. Pertinent negatives: atrial fibrillation; arrhythmia; pacemaker/ICD and DVT/PE Respiratory Pertinent negatives: COPD; asthma; sleep apnea (CHARLETTE); pulmonary hypertension; no O2 use outside thehospital; non-smoker and no tracheostomy Hepatic / Heme + Liver disease (Mild hepatic steatosis per US) + History of anemia (most recent H/H 12.3/32.1 (10/2023)) Gastrointestinal + GERD - PRN medication use only. Asymptomatic. Renal / Pertinent negatives: renal disease and dialysis Comments: Hx: BPH Endocrine / Other + Diabetes mellitus (preDM) Pt reported HgA1c: 6.2. Pt reported HgA1c date: 10/2023. 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 Denies SOB or CP with 2 flights of stairs or walking 4 city blocks. Review of Systems + easy bruising (mild) Pertinent negatives: productive cough; SOB; recent cold/flu; fever; chest pain; palpitations; orthopnea; pedal edema; PND; previous transfusion; bleeding problems; syncope and dizziness PAT Summary and Plans Cardiac risk classification of planned procedure: low cardiac risk. Preoperative assessment status: complete. Additional comments: Bacilio Ramirez is a 78 y.o. male who is being evaluated prior to undergoing a low cardiac risk surgery. Revised Cardiac Risk Index factors are (history of cerebrovascular disease) for a total RCRI of 1 out of 6. Functional capacity is 4-6 METs. The patient is on aspirin therapy and has a history of TIA, s/p L CEA 2014, and AAA. We recommend that aspirin be continued throughout the perioperative period. However, if aspirin needs to be discontinued because the surgical risk of bleeding due to aspirin is considered to outweigh its benefits, we would then recommend stopping aspirin up to 7-10 days prior to the procedure and resuming aspirintherapy as soon as possible in the postoperative period. [employer] staff message sent to surgeon's office. Please call the CPAP chart room clinician ([phone]) with any questions or to discuss alternativemanagement plans. Obstructive sleep apnea (CHARLETTE) screening status is STOP-BANG incomplete at 3-4 suggesting MODERATE risk for CHARLETTE. Neck circumference pending. May need CHARLETTE order set initiated if Co2 >27. This assessment was performed via telephone. Therefore the physical exam has been deferred to the day of surgery team. The patient was provided with preoperative instructions for their medications. The patient was informed that instructions regarding stopping any therapeutic antiplatelet or anticoagulant medications will be provided by the surgeon's office. Patient instructions were provided by telephone and electronically sent via [employer]. Patient verbalized understanding of instructions. Blood bank needs for day of procedure: No type and screen needed Pending labs/tests include: None TPAP assessment complete. Preoperative evaluation performed by Thais Og NP on 02/02/24 at 1:28 PM . Patient Active Problem List Diagnosis Date Noted Stiffness of finger joint of left hand 02/01/2024 Contracture of muscle of left hand 10/17/2022 Other specified hypothyroidism 09/29/2022 Injury of left hand, initial encounter 07/23/2022 Nerve injury 07/23/2022 Trigger middle finger of right hand 02/19/2021 Trigger ring finger of left hand 02/19/2021 Chronic laryngitis 02/18/2021 Laryngopharyngeal reflux (LPR) 02/18/2021 Nasal turbinate hypertrophy 02/18/2021 Generalized pruritus 04/17/2020 Hyperglycemia 04/17/2020 BPH with obstruction/lower urinary tract symptoms 01/16/2020 Essential hypertension, benign 01/16/2020 Abdominal aortic aneurysm (AAA) without rupture (HCC) 12/21/2019 History of left-sided carotid endarterectomy 12/21/2019 PNAR (perennial non-allergic rhinitis) 01/17/2016 Stenosis of carotid artery 08/29/2011 GERD without esophagitis 05/05/2011 Pain in right shoulder 05/05/2011 Mixed hyperlipidemia 12/11/2009 Past Medical History: Diagnosis Date TIA (transient ischemic attack) 1993 Past Surgical History: Procedure Laterality Date APPENDECTOMY late CAROTID ENARTERECTOMYY Left 1993 COLONOSCOPY HAND SURGERY Left 07/23/2022 nerve and tendon repair HAND SURGERY Left 11/04/2022 SEPTOPLASTY 02/01/2016 SHOULDER SURGERY Bilateral x4. unsure on dates Allergies Allergen Reactions Penicillins Hives Sulfa (Sulfonamide Antibiotics) Rash Moxifloxacin Unknown Simvastatin Other (See comments) MUSCLE PAIN Med List Status: Nurse Complete Set By: Maria Tripathi RN at 02/02/2024 9:23 AM Taking? Last Dose Start Date End Date Provider amLODIPine (NORVASC) 5 mg tablet 02/02/2024 12/03/20 -- Provider, MD Gerson aspirin 81 mg enteric coated tablet 02/02/2024 -- -- ProviderGerson MD fexofenadine (FABY) 180 mg tablet Past Month -- -- ProviderGerson MD Lactobacillus aciddrake (PROBIOTIC ORAL) 02/01/2024 -- -- ProviderGerson MD MULTIVITAMIN ORAL 02/02/2024 -- -- ProviderGerson MD pravastatin (PRAVACHOL) 40 mg tablet 02/01/2024 02/15/21 -- ProviderGerson MD RABEprazole DR (ACIPHEX) 20 mg EC tablet Past Week -- -- ProviderGerson MD valsartan (DIOVAN) 160 mg tablet 02/02/2024 09/16/21 -- ProviderGerson MD -- Patient taking differently: -- -- -- -- No current facility-administered medications for this encounter. Current Outpatient Medications: amLODIPine (NORVASC) 5 mg tablet aspirin 81 mg enteric coated tablet fexofenadine (FABY) 180 mg tablet Lactobacillus acidophilus (PROBIOTIC ORAL) MULTIVITAMIN ORAL pravastatin (PRAVACHOL) 40 mg tablet Anastasiiarazosherif RUIZ (ACIPHEX) 20 mg EC tablet valsartan (DIOVAN) 160 mg tablet Social History Tobacco Use Smoking Status Former Current packs/day: 0.00 Types: Cigarettes Quit date: 1989 Years since quittin.9 Smokeless Tobacco Never Alcohol Use: Not At Risk (02/02/2024) AUDIT-C Frequency of Alcohol Consumption: Never Average Number of Drinks: Patient does not drink Frequency of Binge Drinking: Never Substance and Sexual Activity Drug Use Never Family History Problem Relation Age of Onset Anesthesia problems Neg Hx There were no vitals filed for this visit. Relevant diagnostics: ECG(s): N/A Echocardiogram(s): 07/09/16: SUMAN IMPRESSION: 1. NORMAL LEFT VENTRICULAR SYSTOLIC FUNCTION. ESTIMATED EJECTION FRACTION 65-70%. 2. NORMAL AORTIC AND MITRAL VALVE VELOCITIES. 3. MILD TRICUSPID REGURGITATION WITH CALCULATED RIGHT VENTRICULAR SYSTOLIC PRESSURE OF 25 MMHG. Stress test(s): N/A Cardiac catheterization(s): N/A PFT(s): N/A Vascular studies: 10/22/22: US Aorta ([facility]) IMPRESSION: Mild aneurysmal dilatation of the proximal abdominal aorta measuring 3.2 cm, previously 2.9 cm. Mild ectasia of the bilateral common iliac arteries measuring 1.6 cm on the right and 1.6 cm on the left. Hepatic steatosis. 07/19/18: US Carotids IMPRESSION: 1. MILD (LESS THAN 50%) STENOSIS OF THE RIGHT CAROTID BULB AND PROXIMAL ICA. 2. MILD (LESS THAN 50%) STENOSIS OF THE LEFT COMMON CAROTID ARTERY, CAROTID BULB AND PROXIMAL ICA. 3. VERTEBRAL FLOW IS ANTEGRADE BILATERALLY. Other: 01/21/24: US Abdomen ([facility]) IMPRESSION: Mild hepatic steatosis. Gallbladder sludge. No cholelithiasis or sonographic evidence of cholecystitis. PT: No results found for requested labs within last 30 days. INR: No results found for requested labs within last 30 days. APTT: No results found for requested labs within last 30 days. Hgb A1C: No results found for requested labs within last 30 days. CBC RBC: No results found for requested labs within last 30 days. RDW: No results found for requested labs within last 30 days. MCHC: No results found for requested labs within last 30 days. MCH: No results found for requested labs within last 30 days. MCV: No results found for requested labs within last 30 days. Hct: No results found for requested labs within last 30 days. Hgb: No results found for requested labs within last 30 days. WBC: No results found for requested labs within last 30 days. MPV: No results found for requested labs within last 30 days. Platelets: No results found for requested labs within last 30 days. RDW CV: No results found for requested labs within last 30 days. RDW Sd: No results found for requested labs within last 30 days. BMP Glucose: No results found for requested labs within last 30 days. Calcium: No results found for requested labs within last 30 days. Sodium: No results found for requested labs within last 30 days. Potassium: No results found for requested labs within last 30 days. CO2: No results found for requested labs within last 30 days. Chloride: No results found for requested labs within last 30 days. BUN: No results found for requested labs within last 30 days. Creatinine: No results found for requested labs within last 30 days. José index score: 100 DOS Physical Exam Medical history, medications, and allergies reviewed. Attestation: This PAT evaluation 02/02/2024. Airway Exam: Mallampati: II Cervical ROM: FROM Cardiovascular Exam: Rate: bradycardia Rhythm: regular Pulmonary Exam: LCTA Current state: Patient's current state is cooperative and interactive. Anesthesia Plan ASA 3 My patient is approved for the Anesthesia Controlled Medication protocol when under care of a EDUCATION GENERAL MANAGER Planned anesthesia: MAC and regional for postop pain per surgeon request Induction: Induction: intravenous. Postoperative Plan: Postoperative administration opioids intended. No postoperative mechanical ventilation intended. No trial extubation planned. Informed Consent: Anesthesia plan and risks discussed with patient. Plan and Consent Comments: MAC anesthetic including potential risk for converting to a general anesthetic with airway placement were discussed with the patient. All questions answered. Expectation for the possibility of awareness during MAC established with the patient. NPO times appropriate. Ok for GA/LMA as needed to tolerate case Consent and Attending signature: I and/or my designee have discussed the anesthesia plan, benefits, possible alternatives, parental presence at time of induction (if indicated), and clinically relevant risks that may include dental injury, unintentional awareness, and/or other complications. The patient and/or parent/legal guardian understand, and agree to proceed. All questions answered. ING EQUIPMENT INSTALLER ING EQUIPMENT INSTALLER ING EQUIPMENT INSTALLER documented in this encounter Plan of Treatment Not on file documented as of this encounter Procedures Procedure Name Priority Date/Time Associated Diagnosis Comments DC AN PROCEDURE PLACEHOLDER Routine 02/09/2024 12:41 PM HEATING EQUIPMENT INSTALLER DC AN PROCEDURE PLACEHOLDER Routine 02/09/2024 12:40 PM HEATING EQUIPMENT INSTALLER documented in this encounter Results * DC AN PROCEDURE PLACEHOLDER (02/09/2024 12:41 PM HEATING EQUIPMENT INSTALLER) Narrative Geronimo Dwyer MD - 02/09/2024 12:41 PM HEATING EQUIPMENT INSTALLER Geronimo Dwyer MD ? 02/09/2024 12:42 PM [...] MD ANESTHESIA ORDERABLES Final Res ult * DC AN PROCEDURE PLACEHOLDER (02/09/2024 12:40 PM HEATING EQUIPMENT INSTALLER) Narrative Geronimo Dwyer MD - 02/09/2024 12:40 PM HEATING EQUIPMENT INSTALLER Geronimo Dwyer MD ? 02/09/2024 12:41 PM [...] Dwyer MD ANESTHESIA ORDERABLES Final Res ult documented in this encounter Visit Diagnoses Not on filedocumented in this encounter Administered Medications Inactive Administered Medications - up to 3 most recent administrations Medication Order MAR Action Action Date Dose Rate Site BUPivacaine (MARCAINE) 0.5 % (5 mg/mL) preservative free injection perineural, As needed, Starting on Thu02/09/24 at 1222, Anesthesia Intra-op Given 02/09/2024 12:24 PM HEATING EQUIPMENT INSTALLER 8 mL Given 02/09/2024 12:22 PM HEATING EQUIPMENT INSTALLER 12 mL ceFAZolin (ANCEF) 2,000 mg/50 mL in dextrose (premix) 2,000 mg 2,000 mg, intravenous, at 100 mL/hr, Administer over 30 Minutes, Once, On Thu02/09/24 at 1000, For 1 dose, Pre-Op, Administer within 60 minutes of incision. Duplex bag - activate before hanging., Indications: Prophylaxis, SurgicalIndications:Prophylaxis, Surgical Given 02/09/2024 12:54 P M HEATING EQUIPMENT INSTALLER 2,000 mg fentaNYL (SUBLIMAZE) preservative free injection intravenous, As needed, Starting on Thu02/09/24 at 1215, Anesthesia Intra-op Given 02/09/2024 1:46 PM HEATING EQUIPMENT INSTALLER 25 mcg Given 02/09/2024 1:33 PM HEATING EQUIPMENT INSTALLER 25 mcg Given 02/09/2024 12:15 PM HEATING EQUIPMENT INSTALLER 50 mcg Lactated Ringer's (LR) infusion 30 mL/hr, intravenous, Continuous, Starting on Thu02/09/24 at 1000, Pre-Op New Bag 02/09/2024 1:46 PM HEATING EQUIPMENT INSTALLER Rate/Dose Verify 02/09/2024 12:48 PM HEATING EQUIPMENT INSTALLER 30 mL/ hr New Bag 02/09/2024 9:27 AM HEATING EQUIPMENT INSTALLER 30 mL/hr 30 mL/hr Ri ght Hand lidocaine (cardiac) (XYLOCAINE) preservative free injection intravenous, As needed, Starting on Thu02/09/24 at 1252, Anesthesia Intra-op, Indications: Ventricular ArrhythmiasIndications:Ventri cular Arrhythmias Given 02/09/2024 12:52 PM HEATING EQUIPMENT INSTALLER 40 mg propofoL (DIPRIVAN) 10 mg/mL IV intravenous, Continuous PRN, Starting on Thu02/09/24 at 1252, Anesthesia Intra-op New Bag 02/09/2024 12:52 PM HEATING EQUIPMENT INSTALLER 50 mcg/kg/min 24.48 mL/hr documented in this encounter Care Teams Scratch Polisher Relationship Specialty Start Date End Date Jaylon Gudino MD [address] [place] [address] PCP - General Internal Medicine 10/24/22 Jaylon Gudino MD [address] [place] [address] 07/23/22 documented as of this encounter
--- OUTSIDE RECORDS SUMMARY | 2024-03-03 11:40 | XMS_ITS | Encounter Summary ---
Author Organization [facility] Healthcare Address [address] [place] [address] Care Team Providers Care Lawyer Criminal Name Role Phone Jaylon Gudino MD Unavailable [phone] Jaylon Gudino MD Primary Care Provider [phone] Reason for Visit * Reason Comments OT Treatment * Consultation (Routine) - Authorized Specialty Diagnoses / Procedures Referred By Lilly kraft Referred To Contact Occupational Therapy Diagnoses Rupture of flexor sheath mame of finger Jaylen, Ry Man MD [address] [facility] [address] [place] [address] Phone: tel: fax: External Order Referral ID Status Reason Start Date Expiration Date Visits Requested Visits Authorized [id number] Authorized Specialty Services Required 4 01/16/2025 40 40 Encounter Details Date Type Department Care Team (Late st Contact Info) Description 01/15/2024 9:15 AM SALES MGR Therapy [facility] Occupational Therapy [address] [place] [address] Karen Elias OT 1 [place] [address] Injury of left hand, subsequent encounter (Primary Dx) Social History Tobacco Use Types Packs/Day Years Used Date Smoking Tobacco: Former Cigarettes Q uit: 1989 Smokeless Tobacco: Never AUDIT-C Answer Date Recorded Frequency of Alcohol Consumption Not on file 10/21/2022 Q2: How many drinks containi ng alcohol do you have on a typical day when you are drinking? Patient does not drink 08/22/202 3 Frequency of Binge Drinking Not on file 10/01 Personal Safety Answer Date Recorded Have you ever been in or are you currently in a harmful physical or emotional relationship or is someone making you feel afraid or unsafe? Denies 11/04/2022 Sex and Gender Information Value Date Recorded Sex Assigned at Not on file Legal Sex Male 3:56 AM SALES MGR Gender Identity Not on file Sexual Orientation Not on file documented as of this encounter Progress Notes * Karen Elias, OT - 01/15/2024 9:15 AM CST Occupational Therapy Visit OT Daily Treatment Note Bacilio Alvarado Ramirez 1945 Subjective: Pain: 0/10 Patient feels the US did help. Objective: No objective measurements were taken this date. Treatment Provided: US to left volar RF at 3.3 MHz, 50% duty cycle x's 8 minutes for scar management. Therapist completed aggressive scar massage Therapist completed PROM for PIP extension with forearm supinated and hand resting on table x's 10 reps Therapist fabricated a hand based dorsal extension orthosis for patient to wear 3-4 x's per day fordigit extension. Educated patient on orthosis wear/care. Assessment: Patient continues to present with decreased ROM of left LF. He has no pain but continues to have increased scar tissue. He has made minimal improvements. He has been using his LMB splint and completing his exercises. He tolerated all therapy activities. US did appear to soften scar tissue. Orthosisappears to fit well, patient verbalized a comfortable orthosis fit. He verbalized a comfortable orthosis fit. He verbalized understanding [...] to continue plan of care. Start Time: 9:20 AM End Time: 10:10 AM Karen Elias OTR/L S MGR documented in this encounter Plan of Treatment Not on file documented as of this encounter Visit Diagnoses Diagnosis Injury of left hand, subsequent encounter- Primary documented in this encounter Care Teams Lawyer Criminal Relationship Specialty Start Date End Date Jaylon Gudino MD [address] [place] [address] PCP - General Internal Medicine 10/24/22 Jaylon Gudino MD [address] [place] [address] 07/23/22 documented as of this encounter
--- OUTSIDE RECORDS SUMMARY | 2024-03-03 11:40 | XMS_ITS | Encounter Summary ---
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
--- OUTSIDE RECORDS SUMMARY | 2024-03-03 11:40 | XMS_ITS | Encounter Summary ---
Author Organization [facility] Healthcare Address [address] [place] [address] Care Team Providers Care Home Health Attendant Name Role Phone Jaylon Gudino MD Unavailable [phone] Jaylon Gudino MD Primary Care Provider [phone] Reason for Visit * Reason Comments OT Initial Eval * Consultation (Routine) - Authorized Specialty Diagnoses / Procedures Referred By Contdemetrice t Referred To Contact Occupational Therapy Diagnoses Rupture of flexor sheath mame of finger Ry York MD [address] [facility] [address] [place] [address] Phone: tel: fax: External Order Referral ID Status Reason Start Date Expiration Date Visits Requested Visits Authorized [id number] Authorized Specialty Services Required 4 01/16/2025 40 40 Encounter Details Date Type Department Care Team (Late st Contact Info) Description 01/05/2024 11:00 AM MANAGER EMS Therapy [facility] Occupational Therapy 1 [place] [address] Karen Elias OT 1 [place] [address] Injury of left hand, subsequent encounter (Primary [...] on file Legal Sex Male 3:56 AM MANAGER EMS Gender Identity Not on file Sexual Orientation Not on file documented as of this encounter Progress Notes * Karen Elias, OT - 01/05/2024 11:00 AM CST Occupational Therapy Evaluation Occupational Therapy Hand Evaluation Bacilio Ramirez 1945 78 y.o. male Referring Provider: Ry York MD [address] [facility] [address] [place] [address] Rupture of flexor sheath mame of finger Subjective: Patient reports: Patient states his finger is locked up. He is not sure we are going to be able to fix it. He was referred to therapy by Dr. York's office. Order: Hand Therapy Evaluate and Treat Frequency/Duration: 2-3x/wk x 4-6 weeks ROM: aggressive finger ROM for PIP joint, passive extension PIP, tendon gliding PIP flexors LMB to improve PIP extension, eventual transition to A2 mame ring Strengthening: none Restrictions: none Days post op: N/A Patient's primary goal: to regain motion of left LF Diagnosis: Ruptured A2 mame of left LF, causing inflammation, stiffness, and adhesions of his flexor tendons, causing the flexion contracture. Date of onset: Approximately 2-3 months ago Cause of injury: Patient was pulling the cord on a leaf blower when the cord locked up and he felt a pop in his finger. Date of surgery: N/A Surgery details: None Next MD Appointment: 02/01/24 No past medical history on file. 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 Patient enjoys bike marathons and working in hisshop (working on furniture or building different things,), also enjoys helping people with projects. Work status: ON Do you feel safe in your home environment?: [x] Yes [] No Hand dominance [x] Right [] Left [] Ambidextrous Involved side [] Right [x] Left [] Bilateral Numbness [x] Yes [] No Location: Left volar LF Tingling [x] Yes [] No Location: Left radial/ulnar aspects of LF Pain at best: 0/10 Pain at worst: 0/10 Location: N/A Are you taking pain medication? [] Yes [x] No Medication using: N/A ADL Status: [x] Independent [] Requires assistance [] Dependent Details: IADL Status: [x] Independent [] Requires assistance [] Depedendent Details: Leisure activities: [x] Able to participate in leisure activities [] Unable to participate in leisure activities Details: Sleep: [x] Reports adequate sleep to support daily routines [] Reports inadequate sleep to support daily routines Details: Objective: 01/05/2024 QUICK DASH Open a tight or new jar 1 - No Difficulty Do heavy hospital account manager (e.g., wash [place] angel, floors) 1 - No Difficulty Carry a shopping bag or briefcase 1 - No Difficulty Wash your back 1 - No Difficulty Use a knife to cut food 1 - No Difficulty Recreational activities in which you take some force or impact through your arm, shoulder, or hand (e.g., golf, hammering, tennis, etc.) 1 - No Difficulty During the past week, to what extent has your arm, shoulder, or hand problem interfered with your normal social activities with family, friends, neighbours or groups? 1 - Not at All During the past week, were you limited in your work or other regular daily activities as a result of your arm, shoulder or hand problem? 1 - Not Limited at All Arm, shoulder or hand pain 1 - None Tingling (pins and needles) in your arm, shoulder or hand 2 - Mild During the past week, how much difficulty have you had sleeping because of the pain in your arm, shoulder or hand? 1 - No Difficulty Quick DASH Disability/Symptom Score: 2.27 Wound/appearance: Increased scar tissue in left LF at P1 Active Digit Range of Motion (left) Index Middle Ring Small MP 0/63 PIP -46/86 DIP -15/ Treatment Provided: MHP x's 10 minutes to increase tissue extensibility Therapist educated patient on PROM exercises for digit extension Therapist completed PROM for PIP extension with hand rested on foam wedge x's 10 reps Educated patient on reversed blocking Patient completed reversed blocking x's 10 reps with verbal cues Therapist completed aggressive scar massage Therapist completed PROM for PIP extension with forearm supinated and hand resting on table x's 10 reps Issued size B LMB splint Educated patient on LMB wear/care Assessment: Pt demonstrated independence/verbalized understanding in: [x] HEP [] Don/doff orthosis [x] All tx listed above Assessment details: Patient presents with decreased ROM of left LF. He has increased scar tissue distal to MP joint. Hehas no pain this date. He has been working on moving his finger. He verbalized understanding of HEP, scar massage, and use of LMB splint. He would benefit from continued OT services. Impairment list: [x] Coordination [] Edema [x] Endurance/activity tolerance [x] Fine motor use [] Flexibility [] Gross motor use [] Muscle tone [x] Pain [x] Range of motion [x] Scar tissue [x] Sensation [] Sensory/motor [] Skin integrity [x] Strength Functional Limitations: [x] ADLs [] Community activities [] Communication [] Education [] Home management [] Leisure activities [] Play [] Safety [] Sports [x] Work Environmental Barriers: None [] Home [] Work [] Community Barriers to Therapy: None Intervention Approach: [] Health promotion [x] Remediation [] Wellness [] Adaptation [] Prevention Prognosis: [] Excellent [x] Good [] Fair [] Poor ST) 01/05/24 Patient to increase left LF [...] Will add more goals as appropriate. Plan: Frequency/Duration: 20 visits (2-3 x's week x's 4-6 weeks) Plan Details: Patient to return to therapy to work on ROM, scar management, modalities, orthosis fabrication/modification, functional activities, and strengthening (when able). Start time: 11:00 AM End time: 12:00 PM Karen Elias OTR/L If the patient does not return to therapy this will serve as a discharge summary. [facility] documented in this encounter Plan of Treatment Scheduled Referrals Name Type Priority Associated Diagnoses Order Schedule Ambulatory referral order to Occupational Therapy - Outpatient Referral Routine Rupture of flexor sheath mame of finger Ordered: 12/18/2023 documented as of this encounter Visit Diagnoses Diagnosis Injury of left hand, subsequent encounter- Primary documented in this encounter Care Teams Home Health Attendant Relationship Specialty Start Date End Date Jaylon Gudino MD [address] [place] [address] PCP - General Internal Medicine 10/24/22 Jaylon Gudino MD [address] [place] [address] 07/23/22 documented as of this encounter
--- OUTSIDE RECORDS SUMMARY | 2024-03-03 11:40 | XMS_ITS | Encounter Summary ---
Author Organization [facility] Healthcare Address [address] [place] [address] Care Team Providers Care Cattle Producers Name Role Phone Jaylon Gudino MD Unavailable [phone] Jaylon Gudino MD Primary Care Provider [phone] Reason for Visit * Reason Comments OT Treatment * Consultation (Routine) - Authorized Specialty Diagnoses / Procedures Referred By Lilly kraft Referred To Contact Occupational Therapy Diagnoses Rupture of flexor sheath mame of finger Jaylen, Ry Man MD [address] [facility] [address] [place] [address] Phone: tel: fax: External Order Referral ID Status Reason Start Date Expiration Date Visits Requested Visits Authorized [id number] Authorized Specialty Services Required 4 01/16/2025 40 40 Encounter Details Date Type Department Care Team (Late st Contact Info) Description 01/12/2024 11:30 AM CUSTOMS BROKER Therapy [facility] Occupational Therapy [address] [place] [address] Karen Elias OT 1 [place] [address] Injury of left hand, subsequent encounter (Primary [...] on file Legal Sex Male 3:56 AM CUSTOMS BROKER Gender Identity Not on file Sexual Orientation Not on file documented as of this encounter Progress Notes * Karen Elias, OT - 01/12/2024 11:30 AM CST Occupational Therapy Visit OT Daily Treatment Note Bacilio Ramirez 1945 Subjective: Pain: 0/10 Patient states he has not seen much improvement in his finger. Objective: Active Digit Range of Motion (left) Index Middle Ring Small MP PIP -38/ DIP Treatment Provided: US to left volar RF at 3.3 MHz, 50% duty cycle x's 8 minutes for scar management. Therapist completed aggressive scar massage Therapist completed PROM for PIP extension with hand rested on foam wedge x's 15 reps Therapist completed PROM for PIP extension with forearm supinated and hand resting on table x's 10 reps WB into salmon putty x's 3 minutes for PIP extension Patient rolled left palm/LF on green therbar for scar management x's 3 minutes Assessment: Patient continues to present with decreased ROM of left LF. He has no pain but continues to have increased scar tissue. He has made minimal improvements. He has been using his LMB splint and completing his exercises. He tolerated all therapy activities. US did appear to soften scar tissue. He verbalized understanding of continuation of HEP. [...] to therapy to continue plan of care. Fabricate an extension orthosis. Start Time: 11:35 AM End Time: 12:15 PM Karen Elias OTR/L OMS BROKER documented in this encounter Plan of Treatment Not on file documented as of this encounter Visit Diagnoses Diagnosis Injury of left hand, subsequent encounter- Primary documented in this encounter Care Teams Cattle Producers Relationship Specialty Start Date End Date Jaylon Gudino MD [address] [place] [address] PCP - General Internal Medicine 10/24/22 Jaylon Gudino MD [address] [place] [address] 07/23/22 documented as of this encounter
--- OUTSIDE RECORDS SUMMARY | 2024-03-03 11:40 | XMS_ITS | Encounter Summary ---
Author Organization [facility] Healthcare Address [address] [place] [address] Care Team Providers Care Php Mysql Developer Name Role Phone Jaylon Gudino MD Unavailable [phone] Jaylon Gudino MD Primary Care Provider [phone] Reason for Visit * Reason Comments OT Treatment * Consultation (Routine) - Authorized Specialty Diagnoses / Procedures Referred By Lilly kraft Referred To Contact Occupational Therapy Diagnoses Rupture of flexor sheath mame of finger Jaylen, Ry Man MD [address] [facility] [address] [place] [address] Phone: tel: fax: External Order Referral ID Status Reason Start Date Expiration Date Visits Requested Visits Authorized [id number] Authorized Specialty Services Required 4 01/16/2025 40 40 Encounter Details Date Type Department Care Team (Late st Contact Info) Description 01/18/2024 8:15 AM COUNTER SALES PERSON Therapy [facility] Occupational Therapy 1 [place] [address] Karen Elias OT 1 [place] [address] Injury of left hand, subsequent encounter (Primary [...] on file Legal Sex Male 3:56 AM COUNTER SALES PERSON Gender Identity Not on file Sexual Orientation Not on file documented as of this encounter Progress Notes * Karen Elias, OT - 01/18/2024 8:15 AM CST Occupational Therapy Visit OT Daily Treatment Note Bacilio Alvarado Ramirez 1945 Subjective: Pain: 0/10 Patient feels the splint does stretch his finger but it continues to return to flexed position. Objective: Active Digit Range of Motion (left) Index Middle Ring Small MP PIP -35/ DIP Treatment Provided: US to left volar RF at 3.3 MHz, 50% duty cycle x's 8 minutes for scar management. Therapist completed aggressive scar massage Therapist completed PROM for PIP extension with forearm supinated and hand resting on table x's 10 reps AROM composite flexion/extension x's 10 reps WB into pink (hard) theraputty x's 3 minutes for increased digit extension Patient rolled left palm on green therbar x's 3 minutes for scar management and digit extension Assessment: Patient continues to present with decreased [...] to continue plan of care. Start Time: 8:35 AM End Time: 9:10 AM Karne Elias OTR/L TER SALES PERSON documented in this encounter Plan of Treatment Not on file documented as of this encounter Visit Diagnoses Diagnosis Injury of left hand, subsequent encounter- Primary documented in this encounter Care Teams Php Mysql Developer Relationship Specialty Start Date End Date Jaylon Gudino MD [address] [place] [address] PCP - General Internal Medicine 10/24/22 Jaylon Gudino MD [address] [place] [address] 07/23/22 documented as of this encounter
--- OUTSIDE RECORDS SUMMARY | 2024-03-03 11:40 | XMS_ITS | Encounter Summary ---
Author Organization [facility] Healthcare Address [address] [place] [address] Care Team Providers Care Workers Compensation Coordinator Name Role Phone Jaylon Gudino MD Unavailable [phone] Jaylon Gudino MD Primary Care Provider [phone] Reason for Visit * Reason Comments OT Treatment * Consultation (Routine) - Authorized Specialty Diagnoses / Procedures Referred By Lilly kraft Referred To Contact Occupational Therapy Diagnoses Rupture of flexor sheath mame of finger Jaylen, Ry Man MD [address] [facility] [address] [place] [address] Phone: tel: fax: External Order Referral ID Status Reason Start Date Expiration Date Visits Requested Visits Authorized [id number] Authorized Specialty Services Required 4 01/16/2025 40 40 Encounter Details Date Type Department Care Team (Late st Contact Info) Description 01/21/2024 10:00 AM DRIVING INSTRUCTOR Therapy [facility] Occupational Therapy [address] [place] [address] Karen Elias OT 1 [place] [address] Injury of left hand, subsequent encounter (Primary [...] on file Legal Sex Male 3:56 AM DRIVING INSTRUCTOR Gender Identity Not on file Sexual Orientation Not on file documented as of this encounter Progress Notes * Karen Elias, OT - 01/21/2024 10:00 AM CST OT Daily Treatment Note Bacilio Childers Ramirez 1945 Subjective: Pain: 0/10 Patient does not feel his finger is improving. Objective: No objective measurements were taken this [...] to continue plan of care. Start Time: 10:05 AM End Time: 10:45 AM Karen Elias OTR/L ING INSTRUCTOR documented in this encounter Plan of Treatment Not on file documented as of this encounter Visit Diagnoses Diagnosis Injury of left hand, subsequent encounter- Primary documented in this encounter Care Teams Workers Compensation Coordinator Relationship Specialty Start Date End Date Jaylon Gudino MD [address] [place] [address] PCP - General Internal Medicine 10/24/22 Jaylon Gudino MD [address] [place] [address] 07/23/22 documented as of this encounter
--- OUTSIDE RECORDS SUMMARY | 2024-03-03 11:41 | XMS_ITS | Encounter Summary ---
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 I told him to call Dewayne Meyer at [facility]. * Telephone Encounter - Janki Wilson MA - 11/10/2023 3:38 PM CDT ----- Message from RODOLFO Butler sent at 11/10/2023 3:19 PM CDT ----- Regarding: RE: Please review chart note from today Can you let the patient know that Dr Farris would like to order an MRI. Janki, can you order the MRI of the elbow? Once MRI is complete we can schedule for surgery. Pt was comfortable without seeing Dr Farris ----- Message ----- From: Edvin Farris MD Sent: 11/10/2023 2:55 PM CDT To: RODOLFO Estrada; Adenike Armijo Subject: RE: Please review chart note from today Please get MRI of the 1st either [address] is fine with me. ----- Message ----- From: Sukhjinder Ferreira PA Sent: 11/09/2023 8:52 AM CDT To: Edvin Farris MD Subject: Please review chart note from today Patient was referred to our office and schedule with me for potential olecranon bursal resection. Patient is adamant to have this removed. Please review my chart note and let me know if we can proceed with scheduling or if you would like to see him in person. documented in this encounter Plan of Treatment Not on file documented as of this encounter Visit Diagnoses Not on filedocumented in this encounter Care Teams Patents Examiner Relationship Specialty Start Date End Date Jaylon Gudino MD [address] [place] [address] PCP - General Internal Medicine 10/24/22 Jaylon Gudino MD [address] [place] [address] 07/23/22 documented as of this encounter
--- OUTSIDE RECORDS SUMMARY | 2024-03-03 11:41 | XMS_ITS | Encounter Summary ---
Author Organization [facility] Address [address] [place] [address] Care Team Providers Care Loft Worker Pile Driving Name Role Phone Jaylon Gudino MD Unavailable Jaylon Gudino MD Primary Care Provider [phone] Reason for Referral * MRI/CAT/PET Scan (Routine) - Closed Specialty Diagnoses / Procedures Referred By Lilly kraft Referred To Contact Radiology Diagnoses Arthritis pain of hand Contracture of joint of finger of left hand Procedures MRI Hand Left WO Contrast Myriam Olson NP [address] [place] [address] Phone: tel: fax: [address] [phone] Referral ID Status Reason Start Date Expiration Date Visits Re quested Visits Authorized [id number] Closed 10/14/2023 11/12/2024 1 1 Reason for Visit * MRI/CAT/PET Scan (Routine) - Closed Specialty Diagnoses / Procedures Referred By Lilly kraft Referred To Contact Radiology Diagnoses Arthritis pain of hand Contracture of joint of finger of left hand Procedures MRI Hand Left WO Contrast Myriam Olson NP [address] [place] [address] Phone: tel: fax: [address] [phone] Referral ID Status Reason Start Date Expiration Date Visits Re quested Visits Authorized [id number] Closed 10/14/2023 11/12/2024 1 1 Encounter Details Date Type Department Care Team (Latest Contact Info) Description 11/04/2023 2:35 PM CDT - 11/04/2023 11:59 PM CDT Hospital Encounter [facility] [address] [place] [address] Arthritis pain of hand; Contracture of joint of finger of left hand Discharge Disposition: Discharge to [...] on file 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 Gender Identity Not on file Sexual [...] by mouth as needed Lactobacillus acidophilus (PROBIOTIC ORAL)Indications:g [facility] Take 1 tablet/capsule by mouth daily as needed MULTIVITAMIN ORALIndications:harrington pplement Take 1 tablet by mouth every morning pravastatin (PRAVACHOL) 40 mg tabletIndications: hyperlipidemia Take 2 tablets (80 mg total) by mouth nightly 02/15/[address] (ACIPHEX) 20 mg EC tabletIndications: Stress Ulcer Prophylaxis Take 1 tablet (20 mg total) by mouth as needed valsartan (DIOVAN) 160 mg tabletIndications: hypertension Take 1 tablet (160 mg total) by mouth every morning 09/16/2021 acetaminophen 500 mg capsule Take 2 capsules (1,000 mg total) by mouth every 6 (six) hours as needed for pain 07/24/2022 4 doxycycline 100 mg tablet Take 1 tablet (100 mg total) by mouth 2 (two) times a day 09/18/2023 4 HYDROcodone-acetam inophen (NORCO) 5-325 mg per tabletIndications: Pain Take 1 tablet by mouth every 6 (six) hours as needed for pain 20 tablet 11/04/2022 4 levothyroxine (SYNTHROID) 25 mcg tabletIndications: hypothyroidism Take 1 tablet (25 mcg total) by mouth every other day 04/09/2022 4 meloxicam (MOBIC) 15 mg tablet TAKE 1/2 TABLET PO TWICE DAILY 30 tablet 1 11/04/2022 4 documented as of this encounter Discharge Disposition Disposition Code Departure Means Destination Discharge to home or self care documented in this encounter Plan of Treatment Not on file documented as of this encounter Procedures Procedure Name Priority Date/Time Associated Diagnosis Comments MRI HAND LEFT WO CONTRAST Schedule Routine, Read Routine (OP Routine) 11/04/2023 3:58 PM CDT Arthritis pain of hand Contracture of joint of finger of left hand documented in this encounter Results * MRI Hand Left WO Contrast (11/04/2023 3:58 PM CDT) Anatomical Region Laterality Modality Upper Extremities Left Magnetic Reson ance 11/05/2023 6:35 AM CDT Narrative 11/05/2023 6:42 AM CDT EXAM DESCRIPTION: MRI HAND LEFT WO CONTRAST REASON FOR STUDY: Left middle finger contracture ?? Contracture of left middle finger, hx surgery on that finger 06/2022 ?? TECHNIQUE: Multiplanar, multisequence MRI of the ??left hand ??was performed ?? without contrast. COMPARISON: 10/14/2023 FINDINGS: Evaluation is limited by loss of signal and patient motion. There is marked tendinopathy involving the flexor digitorum profundus and flexor digitorum superficialis at the level of the long finger proximal phalanx. ??There is likely superimposed moderate to high-grade tearing of the flexor digitorum profundus and partial-thickness tearing of the flexor digitorum superficialis. ??There is mild flexor tenosynovitis. ??There is evidence of flexor digitorum profundus tendinopathy proximally at the level of the metacarpal. ?? There is bowstringing of the long finger flexor tendons consistent with rupture of the A2 and C1 pulleys. No acute fractures are identified. ??The visualized joint spaces are within normal limits. IMPRESSION: Tendinopathy involving the left long finger flexor digitorum profundus and flexor digitorum superficialis at the level of the proximal phalanx with likely superimposed moderate to high-grade tearing of the flexor digitorum profundus and partial-thickness tearing of the flexor digitorum superficialis. There is mild flexor tenosynovitis. Bowstringing of the long finger flexor tendons consistent with rupture of the A2 and C1 pulleys. THIS IS AN ELECTRONICALLY VERIFIED FINAL REPORT 11/05/2023 6:42 AM - Electronically signed by ??Nixon Sheth M.D. 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 COMPARISON: 10/14/2023 FINDINGS: Evaluation is limited by loss of signal and patient motion. There is marked tendinopathy involving the flexor digitorum profundus and flexor digitorum superficialis at the level of the long finger proximal phalanx. There is likely superimposed moderate to high-grade tearing ofthe flexor digitorum profundus and partial-thickness tearing of the flexor digitorum superficialis. There is mild flexor tenosynovitis. There is evidence of flexor digitorum profundus tendinopathy proximally at thelevel of the metacarpal. There is bowstringing of the long finger flexor tendons consistent with rupture of the A2 and C1 pulleys. No acute fractures are identified. The visualized joint spaces are within normal limits. IMPRESSION: Tendinopathy involving the left long finger flexor digitorum profundusand flexor digitorum superficialis at the level of the proximal phalanx with likely superimposed moderate to high-grade tearing of the flexor digitorum profundus and partial-thickness tearing of the flexor digitorumsuperficialis. There is mild flexor tenosynovitis. Bowstringing of the long finger flexor tendons consistent with rupture ofthe A2 and C1 pulleys. THIS IS AN ELECTRONICALLY VERIFIED FINAL REPORT 11/05/2023 6:42 AM - Electronically signed by Nixon Sheth M.D. MF: BJ Report ID: [id number] Reading Location: [place] [address] Myriam Olson PACU NURSE IMG MRI PROCEDURE S Final Result documented in this encounter Visit Diagnoses Diagnosis Arthritis pain of hand Contracture of joint of finger of left hand documented in this encounter Care Teams Loft Worker Pile Driving Relationship Specialty Start Date End Date Jaylon Gudino MD [address] [place] [address] PCP - General Internal Medicine 10/24/22 Jaylon Gudino MD [address] [place] [address] 07/23/22 documented as of this encounter
--- OUTSIDE RECORDS SUMMARY | 2024-03-03 11:41 | XMS_ITS | Encounter Summary ---
Author Organization [facility] Address [address] [place] [address] Phone Care Team Providers Care Mat Worker Name Role Phone Jaylon Gudino MD Unavailable [phone] Jaylon Gudino MD Primary Care Provider [phone] Reason for Referral * Procedure (Routine) - Authorized Specialty Diagnoses / Procedures Referred By Contac t Referred To Contact Diagnoses Rupture of flexor sheath mame of finger Procedures Small Joint Injection: L long PIP Ry York MD [address] [facility] [address] [place] [address] Phone: tel: fax: [facility] (All Locations) Referral ID Status Reason Start Date Expiration Date V isits Requested Visits Authorized [id number] Authorized 12/18/2023 01/16/2025 1 1 * Consultation (Routine) - Authorized Specialty Diagnoses / Procedures Referred By Lilly kraft Referred To Contact Occupational Therapy Diagnoses Rupture of flexor sheath mame of finger Ry York MD [address] [facility] [address] [place] [address] Phone: tel: fax: External Order Referral ID Status Reason Start Date Expiration Date Visits Requested Visits Authorized [id number] Authorized Specialty Services Required 01/16/2025 40 40 Question Answer PTRFR OT Evaluate and Treat Therapy options discussed with patient? Yes Location provided for therapy services is: Patient requested/Patient preferred Please select the performing region: External Order [171] Comments Hand Therapy Evaluate and Treat Frequency/Duration: 2-3x/wk x 4-6 weeks ROM: aggressive finger ROM for PIP joint, passive extension PIP, tendon gliding PIP flexors LMB to improve PIP extension, eventual transition to A2 mame ring Strengthening: none Restrictions: none Reason for Visit * Reason Comments Pain Pain Encounter Details Date Type Department Care Team (Late st Contact Info) Description 12/18/2023 11:00 AM CDT Office Visit [facility] Orthopaedic Surgery [address] [facility] 1[address] [place] [address] Ry York MD [address] [facility] [address] [place] [address] Rupture of flexor sheath mame of finger [...] on file 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 About 2 months ago he was pulling the starter cord on a leaf blower when he felt a pop in his long finger. He had immediate pain and swelling. He was since had a progressively worsening flexion contracture at the PIP joint. He was not had therapy or injections or treatment to this point. 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 He reports little to no sensation in his finger which is baseline after table saw injury previously. PHYSICAL EXAMINATION GENERAL: This is a well- developed, well nourished age appropriate patient in no acute distress. The patient is alert and oriented x3. Pleasant and cooperative. PSYCHIATRIC: Mood is euthymic. Affect appears appropriate. EYES: Anicteric sclera. Extraocular movements appear intact. EAR, NOSE, THROAT: Hearing is intact to the spoken word. Nares are patent with no drainage. RESPIRATORY: There is equal chest rise on inspection. Breathing is non-labored with no audible wheezing. CARDIOVASCULAR: Radial pulses are 2+ and symmetrical. There is no upper extremity lymphedema. SKIN: No obvious skin lesions or rashes are noted. Skin is warm to touch. NEUROLOGIC: No ataxia. UPPER EXTREMITIES: On the left side, elbow, forearm, wrist and hand motion are full. Active DPC is 6 cm for long finger and passive DPC is 1-1/2 cm for long finger. Otherwise 0 cm for all of the fingers. 50 degree flexion contracture at the proximal interphalangeal joint of the long finger otherwise Finger extension is full. Swelling is mild over the proximal phalanx of the volar aspect of the long finger. Palpablebowstringing of the flexor tendons over the proximal phalanx. Actively fires FDS. No clear firing of FDP. Greater than 15 mm 2 point discrimination of the radial ulnar aspect of the long finger otherwise 2 point discrimination 5 mm in other digits. Median, radial, and ulnar nerves are intact to motor and sensory function, with any exceptions noted below. 2+ radial pulse and brisk capillary refill. There is no atrophy and strength is satisfactory. REVIEW OF X-RAYS/STUDIES MRI of left long finger demonstrates rupture of A2 mame and bowstring of the flexor tendons. IMPRESSION/DIAGNOSIS/ PLAN 78-year-old male with A2 mame injury of his left long finger with resultant flexion contracture. We discussed with him that after he ruptured the A2 mame the inflammation caused stiffness and adhesions of his flexor tendons which is causing the flexion contracture. The primary goal is to get his finger moving again. At this stage, I do not think that mame reconstruction would be particularly helpful given that he has substantial swelling in his PIP joint and his flexor tendons are not gliding. We would like him to start working with hand therapy on range of motion. We will give him an injection of his left long finger PIP joint today to hopefully jump-start his progress. We will see him back in 6 weeks for repeat clinical assessment RECOMMENDED TESTING/PROCEDURE None -- -- -- Gonzales Shea M.D. [facility] in [place] Orthopedic Surgery, PGY-3 TEACHING ATTESTATION: Please note that I personally saw and examined the patient today and activelyparticipated in the history, physical examination, review of studies, and medical decision making. I agree with the documentation initially composed by Gonzales Shea MD and any documentation edits have been included above. Ry York M.D. [facility] Hand and Upper Extremity [facility] Orthopedics Dr. York is dictating using speech recognition software. Contract Negotiator variances may occur. TEACHING ATTESTATION: Please note that I personally saw and examined the patient today and activelyparticipated in the history, physical examination, review of studies, and medical decision making. I agree with the documentation initially composed by Gonzales Shea MD and any documentation edits have been included above. Ry York M.D. Lube [facility] Hand and [facility] Extremity [facility] Orthopedics Dr. York is dictating using speech recognition software. Contract Negotiator variances may occur. * Ry York MD - 12/18/2023 11:00 AM CDTAssociated Order(s): Small Joint Injection: L long PIP Post-Procedure Diagnose(s): Rupture of flexor sheath mame of finger Today I recommended a steroid injection. Risks of the injection were explained to include infection, flare reaction, skin depigmentation, dimpling, and possible tendon rupture or damage to cartilage with repeated injections. We used an alcohol and betadine preparation. Small Joint Injection: L long PIP Performed by: Ry York MD Authorized by: Ry York MD Procedure Details: Location: Long finger Site: L long PIP Medications: 1 mL lidocaine 10 mg/mL (1 %); 40 mg methylPREDNISolone acetate 40 mg/mL The patient tolerated the injection well and was given a handout summarizing post-injection care. The patient will come back to see me after the injection has worn off, making sure to note magnitude and duration of relief from injection. documented in this encounter Plan of Treatment Scheduled Referrals Name Type Priority Associated Diagnoses Order Schedule Ambulatory referral order to Occupational Therapy - Outpatient Referral Routine Rupture of flexor sheath mame of finger Ordered: 12/18/2023 documented as of this encounter Procedures Procedure Name Priority Date/Time Associated Diagnosis Comments SC ARTHROCENTESIS ASPIR&/INJ SMALL JT/BURSA W/O US Routine 12/18/2023 11:00 AM CDT Rupture of flexor sheath mame of finger documented in this encounter Results * SC ARTHROCENTESIS ASPIR&/INJ SMALL JT/BURSA W/O US (12/18/2023 [...] MD IN CLINIC/BEDSIDE ORDERAB LES Final Result documented in this encounter Visit Diagnoses Diagnosis Rupture of flexor sheath mame of finger- Primary documented in this encounter Administered Medications Inactive Administered Medications - up to 3 most recent administrations Medication Order MAR Action Action Date Dose Rate Site lidocaine (XYLOCAINE) 10 mg/mL (1 %) injection 1 mL 1 mL, One-Time Injection, Starting on Thu12/18/23 at 1100, For 1 dose, Indications: Administration of Local AnesthesiaIndications:Admin istration of Local Anesthesia Given 12/18/2023 11:00 AM CDT 1 mL Left Middle Finger methylPREDNISolone acetate (DEPO-medrol) injection 40 mg 40 mg, intra-articular, One-Time Injection, Starting on Thu12/18/23 at 1100, For 1 doseIndications:Rupture of flexor sheath mame of finger Given 12/18/2023 11:00 AM CDT 40 mg Left Middle Finger documented in this encounter Care Teams Mat Worker Relationship Specialty Start Date End Date Jaylon Gudino MD [address] [place] [address] PCP - General Internal Medicine 10/24/22 Jaylon Gudino MD [address] [place] [address] 07/23/22 documented as of this encounter
--- OUTSIDE RECORDS SUMMARY | 2024-03-03 11:41 | XMS_ITS | Encounter Summary ---
Author Organization [facility] Healthcare Address [address] [place] [address] Care Team Providers Care Renewable Energy Engineer Name Role Phone Jaylon Gudino MD Unavailable [phone] Jaylon Gudino MD Primary Care Provider [phone] Reason for Referral * MRI/CAT/PET Scan (Routine) - Closed Specialty Diagnoses / Procedures Referred By Contac t Referred To Contact Radiology Diagnoses Olecranon bursitis of left elbow Procedures MRI Elbow Left WO Contrast Edvin Farris MD [address] [place] [address] DR RENZO Amaya [address] [address] Phone: tel: fax: [facility] [address] [place] [address] Referral ID Status Reason Start Date Expiration Date Visits Re quested Visits Authorized [id number] Closed 11/10/2023 12/09/2024 1 1 Encounter Details Date Type Department Care Team (Late st Contact Info) Description 11/10/2023 Orders Only [facility] Medical Group Orthopedics and Sports Medicine [address] [facility] [address] [place] [address] Edvin Farris MD [address] [place] [address] DR RENZO Amaya [address] [address] Olecranon bursitis of left elbow (Primary Dx) Social History Tobacco Use Types [...] on file 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 Elbow pain, rx states olecranon bursitis ?? TECHNIQUE: Multiplanar, multisequence MRI of the ??left ??elbow was performed ?? without contrast. COMPARISON: X-rays 10/14/2023. FINDINGS: Bones: ??No acute fracture. ??No suspicious marrow infiltration or avascular necrosis. Joint Effusion: ??Minimal joint effusion. ??No free body. Articular Surfaces: ??No significant chondrosis. Triceps Tendon: ??Intact. No tendinopathy. Biceps Tendon: ??Intact. No partial or full-thickness tendon tear. No muscle edema. Brachialis Tendon: ??Intact. No tendinopathy. Common Extensor Group: ??Mild increased T2 signal of the origin of the common extensor tendon. ??Mild tendinosis. ??Mild partial tearing. Common Flexor Group: ??Normal signal. ??No tendinopathy or tear. Evaluation of the intrinsic ligaments is limited in the absence of intra-articular contrast. Within that limitation, the following observations are made: Ulnar Collateral Ligament: ??Intact. Radial Collateral Ligament: ??Intact. Lateral Ulnar Collateral Ligament: ??Intact. Ulnar, Median and Radial Nerves: ??Normal in course, caliber and signal intensity. Soft Tissues: ??Along the posterior aspect of the elbow beginning about 3.5 cm distal to the proximal olecranon process is mild subcutaneous fluid extending distally over a 3.5 cm course long by 1.3 x 0.7 cm TR by AP. ??Nonspecific subcutaneous fluid. ??Underlying olecranon appears normal. ??No significant surrounding inflammatory change. ??The adjacent distal soft tissues are not included well in the field of view. ??This is a little more distal than the typical location of olecranon bursitis, but similar fluid collection is favored. ??Correlate clinically to ensure no evidence of infection. IMPRESSION: There is mild tendinosis of the origin of the common extensor tendon with mild partial tearing. Minimal joint effusion. There is subcutaneous fluid along the posterior aspect of the elbow beginning about 3.5 cm distal to the proximal olecranon process extending distally over a 3.5 x 1.3 x 0.7 cm TR by AP. Nonspecific subcutaneous fluid collection. Underlying olecranon appears normal. The adjacent distal soft tissues are not included well in the field of view. This is a little more distal than the typical location of olecranon bursitis, but similar fluid collection is favored. Correlate clinically to ensure no evidence of infection. THIS IS AN ELECTRONICALLY VERIFIED FINAL REPORT 11/12/2023 1:32 PM - Electronically signed by ??Nixon May M.D. MJ: OSCAR D: ??11/12/2023 1:32 PM T: ??11/12/2023 1:32 PM Report ID: [id number] Reading Location: ??[id number] Procedure Note Nixon May MD - 11/12/2023 EXAM DESCRIPTION: MRI ELBOW LEFT WO CONTRAST REASON FOR STUDY: pain Elbow pain, rx states olecranon bursitis TECHNIQUE: Multiplanar, multisequence MRI of the left elbow wasperformed without contrast. COMPARISON: X-rays 10/14/2023. FINDINGS: Bones: No acute fracture. No suspicious marrow infiltration or avascular necrosis. Joint Effusion: Minimal joint effusion. No free body. Articular Surfaces: No significant chondrosis. Triceps Tendon: Intact. No tendinopathy. Biceps Tendon: Intact. No partial or full-thickness tendon tear. Nomuscle edema. Brachialis Tendon: Intact. No tendinopathy. Common Extensor Group: Mild increased T2 signal of the origin of thecommon extensor tendon. Mild tendinosis. Mild partial tearing. Common Flexor Group: Normal signal. No tendinopathy or tear. Evaluation of the intrinsic ligaments is limited in the absence of intra-articular contrast. Within that limitation, the followingobservations are made: Ulnar Collateral Ligament: Intact. Radial Collateral Ligament: Intact. Lateral Ulnar Collateral Ligament: Intact. Ulnar, Median and Radial Nerves: Normal in course, caliber and signal intensity. Soft Tissues: Along the posterior aspect of the elbow beginning about 3.5cm distal to the proximal olecranon process is mild subcutaneous fluidextending distally over a 3.5 cm course long by 1.3 x 0.7 cm TR by AP. Nonspecific subcutaneous fluid. Underlying olecranon appears normal. No significant surrounding inflammatory change. The adjacent distal soft tissues are not included well in the field of view. This is a little more distal than the typical location of olecranon bursitis, but similar fluid collection is favored. Correlate clinically to ensure no evidence of infection. IMPRESSION: There is mild tendinosis of the origin of the common extensor tendon with mild partial tearing. Minimal joint effusion. There is subcutaneous fluid along the posterior aspect of the elbowbeginning about 3.5 cm distal to the proximal olecranon process extending distallyover a 3.5 x 1.3 x 0.7 cm TR by AP. Nonspecific subcutaneous fluid collection. Underlying olecranon appears normal. The adjacent distal soft tissues arenot included well in the field of view. This is a little more distal than the typical location of olecranon bursitis, but similar fluid collection is favored. Correlate clinically to ensure no evidence of infection. THIS IS AN ELECTRONICALLY VERIFIED FINAL REPORT 11/12/2023 1:32 PM - Electronically signed by Nixon May M.D. MJ: OSCAR Report ID: [id number] Reading Location: [id number] Edvin Farris MD IMG MRI PROCEDURES Final Res ult documented in this encounter Visit Diagnoses Diagnosis Olecranon bursitis of left elbow- Primary Olecranon bursitis of left elbow documented in this encounter Care Teams Renewable Energy Engineer Relationship Specialty Start Date End Date Jaylon Gudino MD [address] [place] [address] PCP - General Internal Medicine 10/24/22 Jaylon Gudino MD [address] [place] [address] 07/23/22 documented as of this encounter
--- OUTSIDE RECORDS SUMMARY | 2024-03-03 11:41 | XMS_ITS | Encounter Summary ---
Author Organization [facility] Address [address] [place] [address] Phone Care Team Providers Care Customs Verifier Name Role Phone Jaylon Gudino MD Unavailable [phone] Jaylon Gudino MD Primary Care Provider [phone] Reason for Referral * MRI/CAT/PET Scan (Routine) - Closed Specialty Diagnoses / Procedures Referred By Lilly kraft Referred To Contact Radiology Diagnoses Arthritis pain of hand Contracture of joint of finger of left hand Procedures MRI Hand Left WO Contrast Myriam Olson NP [address] [facility] [address] CONDON [address] [place] [address] Phone: tel: fax: [address] [address] Referral ID Status Reason Start Date Expiration Date Visits Re quested Visits Authorized [id number] Closed 10/14/2023 11/12/2024 1 1 * Consultation (Routine) - Closed Specialty Diagnoses / Procedures Referred By Lilly kraft Referred To Contact Orthopedic Surgery Diagnoses Left elbow pain Myriam Olson NP [address] [facility] [address] [place] [address] Phone: tel: fax: Matias Farris MD [address] [facility] [address] RENZO Amaya [address] [address] Phone: tel: fax: Referral ID Status Reason Start Date Expiration Date V isits Requested Visits Authorized [id number] Closed Specialty Services Required 10/14/2023 11/12/2024 1 1 Question Answer Please select the performing region: [facility] (All Locations) [167] To provider: MATIAS FARRIS [[id number]] # of visits: 1 Comments Fell in March with injury to left elbow. Has developed soft tissue mass. Ordered x ray today. * Diagnostic Imaging (Routine) - Closed Specialty Diagnoses / Procedures Referred By Lilly kraft Referred To Contact Diagnoses Arthritis pain of hand Procedures XR Hand Left 3 or More Views Myriam Olson NP [address] [facility] [address] [place] [address] Phone: tel: fax: [address] [address] Referral ID Status Reason Start Date Expiration Date Visits Re quested Visits Authorized [id number] Closed 10/14/2023 11/12/2024 1 1 Reason for Visit * Reason Comments Follow-up Encounter Details Date Type Department Care Team (Late st Contact Info) Description 10/14/2023 8:30 AM CDT Office Visit [facility] Physicians [facility] Surgery 2 [facility] [address] [place] [phone] Myriam Olson NP [address] [facility] [address] [place] [address] Arthritis pain of hand (Primary Dx); Left elbow pain; Contracture of joint of finger of left hand Social History Tobacco Use Types Packs/Day Years Used Date Smoking Tobacco: Former Cigarettes Q uit: 1989 Smokeless Tobacco: Never AUDIT-C Answer Date Recorded Frequency of Alcohol Consumption Not on file 10/21/2022 Q2: How many drinks containi ng alcohol do you have on a typical day when you are drinking? Patient does not drink 3 Frequency of Binge Drinking Not on file 10/01 Personal Safety Answer Date Recorded Have you ever been in or are you currently in a harmful physical or emotional relationship or is someone making you feel afraid or unsafe? 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 Plastic & Reconstructive Surgery Progress Note HPI: Bacilio Ramirez is known to our office and has been treated with Kenalog for sever osteoarthritis ofhands. He was last treated in June with Kenalog to his right middle finger and right ring finger PIPjoint. S: He presents today as he has developed contracture of left long finger PIP joint. He states that 2 months ago while pulling cord to start a motor without a popping below his MCP joint. Past month he has noticed inability to fully flex his middle long finger. In June of 2022 he had suffered laceration to volar hand crossing joint. At baseline he has numbness to long finger that remains at his baseline. O: Left long finger PIP joint with flexion contraction of 55??. Mass of left long volar proximal phalanx isolated between MCP and joint that measures 2 x 1.8 cm. Do not appreciate noticeable edema that has been present on his last exam. Baseline decreased sensation of volar of long finger, positive sensation to lateral and dorsal finger. Adequate perfusion to all distal fingertips He was able to fully extend all other digits of left hand make a fist including long finger. I do not appreciate edema of A1 mame and he does not have pain with pressure to this area. Left elbow bursitis measuring 5 x 4.5 cm REVIEW OF LABORATORY AND RADIOGRAPHIC STUDIES: Left hand x ray: No acute fractures noted. I do note arthritic changes to area of concern of long finger PIP joint. A/P: 78 y.o. 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 New flexion contracture of left finger palpable scar tissue: MRI to evaluate tendon. Olecranon Bursitis: referral to orthopedic surgery and x ray ordered today. Follow up: Once MRI is completed I will further discuss findings with patient and treatment options. Restriction: As tolerated I spent 20 minutes on this patient encounter which included review of medical records. Over half the time was spent with the patient face to face discussing the treatment plan, counseling and coordinating care. Myriam Olson NP 10/13/23 8:24 PM This document was transcribed using voice recognition software without a human technical writing lead/mgr. Itmay contain typographical, grammatical, and/or syntax errors. documented in this encounter Miscellaneous Notes * Addendum Note - Zeke Grijalva RMA - 10/14/2023 8:30 AM CDTAddended by: ZEKE GRIJALVA on: 10/14/2023 01:24 PM Modules accepted: Orders documented in this encounter Plan of Treatment Scheduled Referrals Name Type Priority Associated Diagnoses Order Schedule Ambulatory referral to Orthopedic Surgery Outpatient Referral Routine Left elbow pain Expected: 10/28/2023 (Approximate), Expires: 10/13/2024 documented as of this encounter Procedures Procedure Name Priority Date/Time Associated Diagnosis Comments XR HAND LEFT 3 OR MORE VIEWS Schedule Routine, Read Routine (OP Routine) 10/14/2023 9:12 AM CDT Arthritis pain of hand documented in this encounter Results * [...] AM T: ??11/05/2023 6:42 AM Report ID: [id number] Reading Location: ??[id number] Procedure Note Nixon Sheth MD - 11/05/2023 [...] Nixon Sheth M.D. MF: BJ Report ID: [id number] Reading Location: [place] [address] Myriam Olson NP IMG MRI PROCEDURE S Final Result * XR Hand Left 3 or More Views (10/14/2023 9:12 AM CDT) Anatomical Region Laterality Modality Upper Extremities, Hand Left Computed Radiography 10/16/2023 8:26 AM CDT Narrative 10/16/2023 8:31 AM CDT EXAM DESCRIPTION: XR HAND LEFT 3 OR MORE VIEWS REASON FOR STUDY: New left middle finger flexion contracture. ?? 3rd digit on left hand is locked up ??Surgery June of 2022 ??Fell March 2023 and hurt left elbow ??No pain to elbow just swelled up ?? TECHNIQUE: 3 ??radiographic view(s) of the ??left hand . COMPARISON: None FINDINGS: Partial flexion of the interphalangeal joints of the 2nd-5th digits. ??This limits evaluation. ??No acute fracture seen. ??Surgical clips are seen about the palmar aspect of the 4th and 5th digits. ??Mild interphalangeal joint osteoarthritis. IMPRESSION: 1. ?? Partial flexion of the digits limits evaluation. ??Recommend correlation with physical examination. ??No acute fracture. THIS IS AN ELECTRONICALLY VERIFIED FINAL REPORT 10/16/2023 8:31 AM - Electronically signed by ??Matias Anaya M.D. AG: FARZANA D: ??10/16/2023 8:31 AM T: ??10/16/2023 8:31 AM Report ID: [id number] Reading Location: ??[id number] Procedure Note Matias Anaya MD - 10/16/2023 EXAM DESCRIPTION: XR HAND LEFT 3 OR MORE VIEWS REASON FOR STUDY: New left middle finger flexion contracture. 3rd digit on left hand is locked up Surgery June of 2022 Fell March2023 and hurt left elbow No pain to elbow just swelled up TECHNIQUE: 3 radiographic view(s) of the left hand . COMPARISON: None FINDINGS: Partial flexion of the interphalangeal joints of the 2nd-5th digits. This limits evaluation. No acute fracture seen. Surgical clips are seen aboutthe palmar aspect of the 4th and 5th digits. Mild interphalangeal joint osteoarthritis. IMPRESSION: 1. Partial flexion of the digits limits evaluation. Recommendcorrelation with physical examination. No acute fracture. THIS IS AN ELECTRONICALLY VERIFIED FINAL REPORT 10/16/2023 8:31 AM - Electronically signed by Matias Anaya M.D. AG: FARZANA Report ID: [id number] Reading Location: [id number] Myriam Olson NP IMG XR PROCEDURES Final Result * XR Elbow Left 3 or More Views (10/14/2023 9:12 AM CDT) Anatomical Region Laterality Modality Upper Extremities, Elbow Left Compute d Radiography 10/15/2023 7:47 PM CDT Narrative 10/15/2023 7:48 PM CDT EXAM DESCRIPTION: XR ELBOW LEFT 3 OR MORE VIEWS REASON FOR STUDY: Fell in March and has develop soft tissue mass of left elbow ?? 3rd digit on left hand is locked up ??Surgery June of 2022 ??Fell March 2023 and hurt left elbow ??No pain to elbow just swelled up ?? TECHNIQUE: 3 ??radiographic view(s) of the ??left elbow . COMPARISON: None FINDINGS: BONES/JOINTS: There is no acute fracture, malalignment or osseous abnormality. The joint spaces are normal. SOFT TISSUES: Focal soft tissue swelling is apparent superficial to the proximal ulna. ?? IMPRESSION: 1. ??Superficial soft tissue swelling along the proximal ulna. THIS IS AN ELECTRONICALLY VERIFIED FINAL REPORT 10/15/2023 7:48 PM - Electronically signed by ??Dwain Gale M.D. BS: BS D: ??10/15/2023 7:48 PM T: ??10/15/2023 7:48 PM Report ID: [id number] Reading Location: ??[id number] Procedure Note Dwain Gale MD - 10/15/2023 EXAM DESCRIPTION: XR ELBOW LEFT 3 OR MORE VIEWS REASON FOR STUDY: Fell in March and has develop soft tissue mass of left elbow 3rd digit on left hand is locked up Surgery June of 2022 Fell March2023 and hurt left elbow No pain to elbow just swelled up TECHNIQUE: 3 radiographic view(s) of the left elbow . COMPARISON: None FINDINGS: BONES/JOINTS: There is no acute fracture, malalignment or osseousabnormality. The joint spaces are normal. SOFT TISSUES: Focal soft tissue swelling is apparent superficial to the proximal ulna. IMPRESSION: 1. Superficial soft tissue swelling along the proximal ulna. THIS IS AN ELECTRONICALLY VERIFIED FINAL REPORT 10/15/2023 7:48 PM - Electronically signed by Dwain Gale M.D. BS: BS Report ID: [id number] Reading Location: [id number] Myriam Vaibhav Olson E LEARNING SPECIALIST IMG XR PROCEDURES Final Result documented in this encounter Visit Diagnoses Diagnosis Arthritis pain of hand- Primary Left elbow pain Pain in joint, upper arm Contracture of joint of finger of left hand Left elbow pain Pain in joint, upper arm Arthritis pain of hand Contracture of joint of finger of left hand documented in this encounter Historical Medications * This list may reflect changes made after this encounter. doxycycline 100 mg tablet Take 1 tablet (100 mg total) by mouth 2 (two) times a day 09/18/2023 02/02/2024 added in this encounter Care Teams Customs Verifier Relationship Specialty Start Date End Date Jaylon Gudino MD [address] [place] [address] PCP - General Internal Medicine 10/24/22 Jaylon Gudino MD [address] [place] [address] 07/23/22 documented as of this encounter
--- OUTSIDE RECORDS SUMMARY | 2024-03-03 11:41 | XMS_ITS | Encounter Summary ---
Author Organization [facility] Healthcare Address [address] [place] [address] Care Team Providers Care Automobile Wrecker Name Role Phone Jaylon Gudino MD Unavailable [phone] Jaylon Gudino MD Primary Care Provider [phone] Encounter Details Date Type Department Care Team (Late st Contact Info) Description 11/16/2023 Telephone [facility] Medical Group Orthopedics and Sports Medicine [address] [facility] [address] [place] [address] Sukhjinder Ferreira PA [address] [place] [address] [address] [place] [address] Social History Tobacco Use Types Packs/Day Years [...] on file 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 Farris has elected to not proceed with surgery on the elbow. I have recommended that he use compression on the area to help with reabsorption of the fluid. He may follow up on an as-needed basis only. * Telephone Encounter - Sukhjinder Ferreira PA - 11/16/2023 2:59 PM CDT Can you review this with Dr Barry. He was sent to our office by Linda for the elbow mass that appears to be a bursitis but not in the typical location. Dr Farris has stated non op treatment after the MRI as obtained however the patient very much wants this removed. Please let me know if Dr Barry would like see him/discuss that as an option. * Telephone Encounter - Sukhjinder Ferreira PA - 11/16/2023 2:59 PM CDT ----- Message from Edvin Farris MD sent at 11/13/2023 10:00 AM CDT ----- I recommend leaving it alone and wearing a sleeve the covered up. no risks of infection ----- Message ----- From: Sukhjinder Ferreira PA Sent: 11/13/2023 8:34 AM CDT To: Edvin Farris MD This is non painful, he does not like to appearance of it. I did not attempt aspiration because I do not typically do that for risk of infection. Would you like to see him for that? Or see if Dr Mayorga or Srinivas would like to attempt it? ----- Message ----- From: Edvin Farris MD Sent: 11/12/2023 3:54 PM CDT To: RODOLFO Estrada Unless painful, or causing problem I would recommend leaving it alone. Has ever been aspirated? Mineralogy Teacher completed by using M#Modal Fluency Direct speaking software, therefore, transcriptionvariances may occur. documented in this encounter Plan of Treatment Not on file documented as of this encounter Visit Diagnoses Not on filedocumented in this encounter Care Teams Automobile Wrecker Relationship Specialty Start Date End Date Jaylon Gudino MD [address] [place] [address] PCP - General Internal Medicine 10/24/22 Jaylon Gudino MD [address] [place] [address] 07/23/22 documented as of this encounter
--- OUTSIDE RECORDS SUMMARY | 2024-03-03 11:41 | XMS_ITS | Encounter Summary ---
Author Organization [facility] Healthcare Address [address] [place] [address] Care Team Providers Care Film Masker Name Role Phone Jaylon Gudino MD Unavailable [phone] Jaylon Gudino MD Primary Care Provider [phone] Reason for Visit * Diagnostic Imaging (Routine) - Closed Specialty Diagnoses / Procedures Referred By Contac t Referred To Contact Diagnoses Arthritis pain of hand Procedures XR Hand Left 3 or More Views Myriam Olson NP [address] [place] [address] Phone: tel: fax: [address] [address] Referral ID Status Reason Start Date Expiration Date Visits Re quested Visits Authorized [id number] Closed 10/14/2023 11/12/2024 1 1 Encounter Details Date Type Department Care Team (Latest Contact Info) Description 10/14/2023 8:57 AM CDT - 10/14/2023 11:59 PM CDT Hospital Encounter [facility] [address] [place] [id number] Left elbow pain Discharge Disposition: Discharge to home or self [...] on file 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 Gender Identity Not on file Sexual [...] PO TWICE DAILY 30 tablet 1 11/04/2022 documented as of this encounter Discharge Disposition Disposition Code Departure Means Destination Discharge to home or self care documented in this encounter Plan of Treatment Not on file documented as of this encounter Procedures Procedure Name Priority Date/Time Associated Diagnosis Comments XR HAND LEFT 3 OR MORE VIEWS Schedule Routine, Read Routine (OP Routine) 10/14/2023 9:12 AM CDT Arthritis pain of hand XR ELBOW LEFT 3 OR MORE VIEWS Schedule Routine, Read Routine (OP Routine) 10/14/2023 9:12 AM CDT Left elbow pain documented in this encounter Results * XR Elbow Left 3 or More [...] Electronically signed by ??Dwain Gale M.D. BS: MONO D: ??10/15/2023 7:48 PM T: ??10/15/2023 7:48 PM Report ID: [id number] Reading Location: [id number] Procedure Note Dwain Gale MD - 10/15/2023 [...] Dwain Gale M.D. BS: BS Report ID: [id number] Reading Location: [place] [address] Myriam Olson WASTE DISPOSAL LEAKAGE TESTER IMG XR PROCEDURES Final Result documented in this encounter Visit Diagnoses Diagnosis Left elbow pain Pain in joint, upper arm documented in this encounter Care Teams Film Masker Relationship Specialty Start Date End Date Jaylon Gudino MD [address] [place] [address] PCP - General Internal Medicine 10/24/22 Jaylon Gudino MD [address] [place] [address] 07/23/22 documented as of this encounter
--- OUTSIDE RECORDS SUMMARY | 2024-03-03 11:41 | XMS_ITS | Encounter Summary ---
Author Organization [facility] Address [address] [place] [address] Phone Care Team Providers Care Ict Support Technicians Name Role Phone Jaylon Gudino MD Unavailable [phone] Jaylon Gudino MD Primary Care Provider [phone] Reason for Visit * Reason Comments Follow-up * Consultation (Routine) - Closed Specialty Diagnoses / Procedures Referred By Lilly t Referred To Contact Plastic Surgery Diagnoses Pain of right middle finger Jaylon Gudino MD [address] [place] [address] Phone: tel: fax: Myriam Olson NP [address] [facility] [address] [place] [address] Phone: tel: fax: Referral ID Status Reason Start Date Expiration Date V isits Requested Visits Authorized [id number] Closed Specialty Services Required 01/15/2023 02/14/2024 5 5 Encounter Details Date Type Department Care Team (Late st Contact Info) Description 07/28/2023 11:30 AM CDT Office Visit [facility] [address] [place] [address] [address] [place] [address] Myriam Olson NP [address] [facility] [address] [address] Arthritis pain of hand (Primary Dx) Social History Tobacco Use Types [...] on file 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 Hx of trigger steroid injections. 02/18/21 MCP steroid injection left ring and right long finger Trigger steroid injections Right long finger and left ring finger. 10/2021 MCP joint Right long, left index and long finger MCP Trigger steroid injection of right long, left index and left long finger 04/24/2022 MCP steroid injections left index, middle, ring, and right middle and ring fingers S: He presents today with recurrent arthritic pain of his right long and ring finger. He also has noted swelling as his base of left long finger an area that was affected by injury caused by a table saw that had been repaired. He reports discomfort but overall denies pain does not remember injury to this area. 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 O: On exam today of his right hand he has visibly enlarged joints that are at his baseline without erythema were noted edema. He has pain with flexion and pressure over right long and ring fingers PIP joint. He is able to make a fist and extend all digits. On exam of left base of long finger he is noted to have edema that confined to area between MCP andPIP joint. Edema is more noticeable on volar finger. I do not appreciate erythema, increased warmthor areas of drainage. He reports discomfort but is able to tolerate pressure to this area. He is able to flex at all joints and able to touch volar palm with distal long finger and extend to his baseline that has slight extension contracture. He is adequate perfusion to distal finger and positive sensation. A/P: 77 y.o. male with history of osteoarthritis bilateral hands. He has had increased discomfort with arthritis of right long and ring finger PIP joints. He has hadKenalog injections to joints of his hands in the past that have been effective in relieving discomfort and was offered this again today. See procedure note. He also has swelling base of his left long finger that is likely related to increased work previousinjured area. I have recommended that he try to decrease lifting, pushing or pulling with his righthand for the next week. He was also given silicone finger sleeve to place over this area to help with compression and decreased edema. He was instructed to contact the office if this area develops redness, warmth, drainage or any other indications of infection. All of his questions were answered and he was instructed to contact the office if he has additionalquestions. Follow up: PRN Restriction: as tolerated, rist left hand for 1 week. I spent 20 minutes on this patient encounter which included review of medical records. Over half the time was spent with the patient face to face discussing the treatment plan, counseling and coordinating care. Myriam Olson NP 07/23/23 5:00 PM This document was transcribed using voice recognition software without a human catcher filter tip. Itmay contain typographical, grammatical, and/or syntax errors. documented in this encounter Procedure Notes * Myriam Olson NP - 07/28/2023 11:30 AM CDT Procedures PROCEDURE: small Joint Steroid Injection - Right Middle finger PIP joint dorsal and ulnar aspect After discussing the risks (including bleeding, infection, damage to nearby structures including skin/tendon), benefits, alternatives, and expected post- injection course, verbal informed consent was obtained by the patient. The skin over the joint was cleaned with chloraprep A 27G needle was used to access the dorsal ulnar aspect of the joint <1 ml of 1% lidocaine plain was injected into the soft tissue and joint The needle was left in place and 20 mg (0.5 ml) of kenalog 40 was injected into the joint The skin was wiped again with chloraprep and a Band-Aid was applied The patient tolerated the procedure well PROCEDURE: small Joint Steroid Injection - Right Ring finger PIP joint dorsal and ulnar aspect After discussing the risks (including bleeding, infection, damage to nearby structures including skin/tendon), benefits, alternatives, and expected post- injection course, verbal informed consent was obtained by the patient. The skin over the joint was cleaned with chloraprep A 27G needle was used to access the dorsal ulbnar aspect of the joint <1 ml of 1% lidocaine plain was injected into the soft tissue and joint The needle was left in place and 20 mg (0.5 ml) of kenalog 40 was injected into the joint The skin was wiped again with chloraprep and a Band-Aid was applied The patient tolerated the procedure well documented in this encounter Miscellaneous Notes * Addendum Note - Zeke Grijalva RMA - 07/28/2023 11:30 AM CDTAddended by: ZEKE GRIJALVA on: 07/28/2023 12:04 PM Modules accepted: Orders documented in this encounter Plan of Treatment Not on file documented as of this encounter Visit Diagnoses Diagnosis Arthritis pain of hand- Primary documented in this encounter Administered Medications Inactive Administered Medications - up to 3 most recent administrations Medication Order MAR Action Action Date Dose Rate Site lidocaine (XYLOCAINE) 10 mg/mL (1 %) injection 10 mg 10 mg (1 mL), infiltration, Once, On Thu07/28/23 at 1245, For 1 dose, Indications: Administration of Local AnesthesiaIndications:Administrati on of Local Anesthesia Given 07/28/2023 12:03 PM CDT 10 mg triamcinolone (KENALOG) 40 mg/mL injection 40 mg 40 mg, other, Once, On Thu07/28/23 at 1245, For 1 doseIndications:Arthritis pain of hand Given 07/28/2023 12:04 PM CDT 40 mg documented in this encounter Care Teams Ict Support Technicians Relationship Specialty Start Date End Date Jaylon Gudino MD [address] [place] [address] PCP - General Internal Medicine 10/24/22 Jaylon Gudino MD [address] [place] [address] 07/23/22 documented as of this encounter
--- OUTSIDE RECORDS SUMMARY | 2024-03-03 11:41 | XMS_ITS | Encounter Summary ---
Author Organization [facility] Address [address] [place] [address] Phone Care Team Providers Care Abseiling Instructor Name Role Phone Jaylon Gudino MD Unavailable [phone] Jaylon Gudino MD Primary Care Provider [phone] Reason for Visit * Reason Comments Follow-up * Consultation (Routine) - Closed Specialty Diagnoses / Procedures Referred By Contdemetrice t Referred To Contact Plastic Surgery Diagnoses Pain of right middle finger Jaylon Gudino MD [address] [place] [address] Phone: tel: fax: Myriam Olson NP [address] [facility] [address] [place] [address] Phone: tel: fax: Referral ID Status Reason Start Date Expiration Date V isits Requested Visits Authorized [id number] Closed Specialty Services Required 01/15/2023 02/14/2024 5 5 Encounter Details Date Type Department Care Team (Late st Contact Info) Description 02/09/2023 11:00 AM COMMUNITY MUSIC THERAPIST Office Visit [facility] Surgery [address] [place] [address] [address] [place] [address] Myriam Olson NP [address] [facility] [address] [place] [address] Trigger finger of left thumb (Primary Dx); Pain of right middle finger Social History Tobacco Use Types Packs/Day Years [...] on file 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 Hx of trigger steroid injections. 02/18/21 MCP steroid injection left ring and right long finger Trigger steroid injections Right long finger and left ring finger. 10/2021 MCP joint Right long, left index and long finger MCP Trigger steroid injection of right long, left index and left long finger 04/24/2022 MCP steroid injections left index, middle, ring, and right middle and ring fingers S: Since I last saw him he sustained a significant laceration injury to his left volar hand while using a table saw. He required repair of his left middle finger arteries, nerves and flexor digitorumprofundus tendon zone 2. Repair of f ring finger ulnar digital nerve with allograft Repair of small finger radial digital nerve with allograft, small finger ulnar digital nerve and placement of Integra graft for coverage of left index finger soft tissue injury. He presents today with left thumb triggering, he has not had steroid injection to this tendon in the past. He is also having reoccurring arthritis pain of right MCP joint limiting activity due to pain O: On exam he has palpable enlargement of his right thumb A1 pulling and was able to demonstrate triggering on exam today. He has positive sensation to distal fingertips and adequate perfusion. Overall he does have enlargement of all MCP joints but I do not note obvious deformities. He has full range of motion of right hand including right long finger MCP joint. A/P: 77 y.o. male presents with new triggering of his left thumb. 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 Kenalog injection of right 3rd MCP joint and Left thumb A1 mame. Reviewed possible risk of steroid injections including possible infection, bruising, bleeding and less likely but potential injury to surrounding structures. See procedure note Follow up: PRN Restriction: as tolerated I spent 20 minutes on this patient encounter which included review of medical records. Over half the time was spent with the patient face to face discussing the treatment plan, counseling and coordinating care. Myriam Olson NP 02/05/23 7:46 PM This document was transcribed using voice recognition software without a human clerical car checker. Itmay contain typographical, grammatical, and/or syntax errors. UNITY MUSIC THERAPIST documented in this encounter Procedure Notes * Myriam Olson NP - 02/09/2023 11:00 AM CST Procedures PROCEDURE: Trigger Finger Steroid Injection - Left thumb After discussing the risks (including bleeding, infection, damage to nearby structures including skin/tendon), benefits, alternatives, and expected post-injection course, verbal informed consent was obtained by the patient. The skin over the A1 mame was cleaned with alcohol A 27G needle was used to access the tendon sheath at the site of the A1 mame 0.5 ml of 1% lidocaine plain was injected The needle was left in place and 20mg (0.5 ml) of Kenolog was injected The skin was wiped again with alcohol and a Band-Aid was applied The patient tolerated the procedure well PROCEDURE: small Joint Steroid Injection - Right Middle finger MCP joint dorsal aspect After discussing the risks (including bleeding, infection, damage to nearby structures including skin/tendon), benefits, alternatives, and expected post- injection course, verbal informed consent was obtained by the patient. The skin over the joint was cleaned with chloraprep A 27G needle was used to access the dorsal aspect of the joint <1 ml of 1% lidocaine plain was injected into the soft tissue and joint The needle was left in place and 20 mg (0.5 ml) of kenalog 40 was injected into the joint The skin was wiped again with chloraprep and a Band-Aid was applied The patient tolerated the procedure well UNITY MUSIC THERAPIST documented in this encounter Plan of Treatment Not on file documented as of this encounter Visit Diagnoses Diagnosis Trigger finger of left thumb- Primary Pain of right middle finger documented in this encounter Administered Medications Inactive Administered Medications - up to 3 most recent administrations Medication Order MAR Action Action Date Dose Rate Site lidocaine (XYLOCAINE) 10 mg/mL (1 %) injection 10 mg 10 mg (1 mL), infiltration, Once, On Thu02/09/23 at 1215, For 1 dose, Indications: Administration of Local AnesthesiaIndications:Administrati on of Local Anesthesia Given 02/09/2023 11:38 AM COMMUNITY MUSIC THERAPIST 10 mg triamcinolone (KENALOG) 40 mg/mL injection 40 mg 40 mg, other, Once, On Thu02/09/23 at 1215, For 1 doseIndications:Pain of right middle finger Given 02/09/2023 11:38 AM COMMUNITY MUSIC THERAPIST 40 mg documented in this encounter Orders Outpatient Referral Count Last Ordered Date Fir st Ordered Date AMB REFERRAL TO PLASTIC SURGERY 1 3 documented in this encounter Care Teams Abseiling Instructor Relationship Specialty Start Date End Date Jaylon Gudino MD [address] [place] [address] PCP - General Internal Medicine 10/24/22 Jaylon Gudino MD [address] [place] [address] 07/23/22 documented as of this encounter
--- OUTSIDE RECORDS SUMMARY | 2024-03-03 11:41 | XMS_ITS | Encounter Summary ---
Author Organization [facility] Healthcare Address [address] [place] [address] Care Team Providers Care Infant And Toddler Teacher Name Role Phone Jaylon Gudino MD Unavailable [phone] Jaylon Gudino MD Primary Care Provider [phone] Reason for Visit * Reason Comments Pain Encounter Details Date Type Department Care Team (Late st Contact Info) Description 11/09/2023 8:30 AM CDT Office Visit [facility] Medical Group Orthopedic and Sports Medicine [address] [place] [phone] Sukhjinder Ferreira PA [address] [place] [address] [address] [place] [address] Olecranon bursitis of left elbow (Primary Dx) [...] on file 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 Gender Identity Not on file Sexual Orientation Not on file documented as of this encounter Last Filed Vital Signs Vital Sign Reading Time Taken Comments Blood Pressure 152/61 11/09/2023 8:23 AM CDT Pulse 88 11/09/2023 8:23 AM CDT Temperature - - Respiratory Rate - - Oxygen Saturation - - Inhaled Oxygen Concentration - - Weight 78.9 kg (174 lb) 11/09/2023 8:23 AM CDT Height 170.2 cm (5' 7 ) 11/09/2023 8:23 AM CDT Body Mass Index 27.25 11/09/2023 8:23 AM CDT documented in this encounter Progress Notes * Sukhjinder Ferreira PA - 11/09/2023 8:30 AM CDT Images from the original note were not included. NEW PATIENT VISIT Subjective CHIEF COMPLAINT He had concerns including Pain of the Left Elbow. HISTORY OF PRESENT ILLNESS Patient is an 78-year-old man here today for evaluation of a left elbow mass which is suspected to be bursitis. He was referred here by the plastic surgery office that has been following him for a separate issue. He states that he has no pain. This started in March after a fall onto the ice. Outside x-rays have been obtained and personally reviewed by myself. My interpretation is as follows: Three views of the left elbow are negative for fracture dislocation or osseous lesion. Mild arthritic changes are noted within the elbow joint, with maintained joint spaces. Chronic changes noted over the medial epicondyle. The lateral view demonstrates a soft tissue swelling that is distal to the olecranon and not consistent with traditional olecranon bursitis. A small posterior olecranon spur is noted. Pain Assessment Pain Assessment: 0-10 Pain Score: 1 PAST MEDCIAL HISTORY He has no past medical history of Awareness under anesthesia, Cardiac complication, Delayed emergence from general anesthesia, Hard to intubate, Malignant hyperthermia, Motion sickness, PONV (postoperative nausea and vomiting), Postoperative delirium, Pseudocholinesterase deficiency, or Sleep apnea. PAST SURGICAL HISTORY He has a past surgical history that includes Hand surgery (Left, 06/2022); Shoulder surgery; Appendectomy; Colonoscopy; and carotid endarerectomyy (Left). MEDICATIONS He has a current medication list which includes the following prescription(s): acetaminophen, amlodipine, aspirin, fexofenadine, hydrocodone-acetaminophen, lactobacillus acidophilus, levothyroxine, meloxicam, multivitamin, pravastatin, rabeprazole dr, valsartan, and doxycycline. ALLERGIES He is allergic to penicillins, sulfa (sulfonamide antibiotics), moxifloxacin, and simvastatin. SOCIAL HISTORY He reports that he quit smoking about 34 years ago. His smoking use included cigarettes. He has never used smokeless tobacco. He reports that he does not use drugs. Patient denies consuming alcoholicdrinks. FAMILY HISTORY His family history is not on file. REVIEW OF SYSTEMS Review of Systems Constitutional: Negative for chills, fatigue and fever. HENT: Negative for sore throat. Respiratory: Negative for cough and shortness of breath. Cardiovascular: Negative for chest pain. Gastrointestinal: Negative for constipation, nausea and vomiting. Neurological: Negative for dizziness, light-headedness and headaches. Objective PHYSICAL EXAM BP 152/61 Pulse 88 Ht 170.2 cm (5' 7 ) Wt 78.9 kg (174 lb) BMI 27.25 kg/m?? Left elbow Inspection Olecranon bursa swelling: present Swelling: absent Temperature: normal Surgical scar/wound: absent. Palpation Tenderness: absent. Range of motion The patient has normal range of motion of the left elbow. Strength The patient has 5/5 strength throughout. Neurovascular The patient has normal vascular on the left side of their body. The patient has normal sensation on the left side of their body. Tests Varus: negative Valgus: negative REVIEW OF X-RAYS/STUDIES/LABS EXAM DESCRIPTION: XR ELBOW LEFT 3 OR MORE VIEWS REASON FOR STUDY: Fell in March and has develop soft tissue mass of left elbow 3rd digit on left hand is locked up Surgery June of 2022 Fell March 2023 and hurt left elbow No pain to [...] Electronically signed by Dwain Gale M.D. BS: MONO Report ID: [id number] Reading Location: [id number] Assessment/Plan Bacilio Gonzalez was seen today for pain. Diagnoses and all orders for this visit: Olecranon bursitis of left elbow Procedures PLAN I reviewed x-ray and exam findings today with the patient. Patient is adamant that he would like this removed, I have discussed with him that this is a cosmetic procedure. He understands this. He states that Dr. Barry was unable to remove it due to the location which is why he was referred to our office today. I reviewed with the patient that the procedure will be done under general anesthesia and we would need clearance from his primary care physician prior to proceeding with the procedure. 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 Due to the nature of the referral, I have consented him today for that procedure, open resection ofolecranon bursa. Risks and benefits of surgery were reviewed with the patient today including but not limiting to risk of infection, , damage to nerves/arteries/veins, VTE. The case will be reviewed with Dr. Farris, if he agrees to move forward with surgery we will contact the patient for a date or to schedule a consultation with himself. All questions were addressed today and the patient was instructed to call the office with any questions or concerns. There may be grammatical errors in this note due to use of voice recognition software. RODOLFO Estrada Cosigned by Edvin Farris MD at 11/09/2023 12:26 PM CDT documented in this encounter Plan of Treatment Not on file documented as of this encounter Visit Diagnoses Diagnosis Olecranon bursitis of left elbow- Primary documented in this encounter Care Teams Infant And Toddler Teacher Relationship Specialty Start Date End Date Jaylon Gudino MD [address] [place] [address] PCP - General Internal Medicine 10/24/22 Jaylon Gudino MD [address] [place] [address] 07/23/22 documented as of this encounter
--- OUTSIDE RECORDS SUMMARY | 2024-03-03 11:41 | XMS_ITS | Encounter Summary ---
Author Organization [facility] Address [address] [place] [address] Phone Care Team Providers Care Health And Human Performance Professor Name Role Phone Jaylon Gudino MD Unavailable [phone] Jaylon Gudino MD Primary Care Provider [phone] Encounter Details Date Type Department Care Team (Late st Contact Info) Description 09/28/2023 Orders Only [facility] Surgery [address] [facility] [place] [address] [place] [address] Myriam Olson NP [address] [facility] [address] [place] [address] Finger pain, left (Primary Dx) Social History Tobacco Use Types [...] on file 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 He also states that he was noticing physical changes to finger. I have ordered hand x-ray and he will be scheduled to return in the near future. documented in this encounter Plan of Treatment Not on file documented as of this encounter Visit Diagnoses Diagnosis Finger pain, left- Primary Pain in soft tissues of limb documented in this encounter Care Teams Health And Human Performance Professor Relationship Specialty Start Date End Date Jaylon Gudino MD [address] [place] [address] PCP - General Internal Medicine 10/24/22 Jaylon Gudino MD [address] [place] [address] 07/23/22 documented as of this encounter
--- OUTSIDE RECORDS SUMMARY | 2024-03-03 11:41 | XMS_ITS | Encounter Summary ---
Author Organization [facility] Healthcare Address [address] [place] [address] Care Team Providers Care Top Hat Body Maker Name Role Phone Jaylon Gudino MD Unavailable [phone] Jaylon Gudino MD Primary Care Provider [phone] Reason for Referral * MRI/CAT/PET Scan (Routine) - Closed Specialty Diagnoses / Procedures Referred By Abac t Referred To Contact Radiology Diagnoses Olecranon bursitis of left elbow Procedures MRI Elbow Left WO Contrast Edvin Farris MD [address] [place] [address] DR RENZO Amaya [address] [address] Phone: tel: fax: [address] [address] Referral ID Status Reason Start Date Expiration Date Visits Re quested Visits Authorized [id number] Closed 11/10/2023 12/09/2024 1 1 Reason for Visit * MRI/CAT/PET Scan (Routine) - Closed Specialty Diagnoses / Procedures Referred By Contdemetrice kraft Referred To Contact Radiology Diagnoses Olecranon bursitis of left elbow Procedures MRI Elbow Left WO Contrast Edvin Farris MD [address] [place] [address] DR RENZO Amaya [address] [address] Phone: tel: fax: [address] [address] Referral ID Status Reason Start Date Expiration Date Visits Re quested Visits Authorized [id number] Closed 11/10/2023 12/09/2024 1 1 Encounter Details Date Type Department Care Team (Latest Contact Info) Description 11/12/2023 8:40 AM CDT - 11/12/2023 11:59 PM CDT Hospital Encounter [facility] [address] [place] [address] Olecranon bursitis of left elbow Discharge Disposition: Discharge to home or self [...] on file 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 Has ever been aspirated? Turbine Technician completed by using M*Modal Twined Direct speaking software, therefore, transcriptionvariances may occur. documented in this encounter Plan of Treatment Not on file documented as of this encounter Procedures Procedure Name Priority Date/Time Associated Diagnosis Comments MRI ELBOW LEFT WO CONTRAST Schedule Routine, Read Routine (OP Routine) 11/12/2023 9:48 AM CDT Olecranon bursitis of left elbow documented in this encounter Results * MRI Elbow Left [...] PM T: ??11/12/2023 1:32 PM Report ID: [id number] Reading Location: [id number] Procedure Note Nixon May MD - 11/12/2023 [...] Nixon May M.D. MJ: OSCAR Report ID: [id number] Reading Location: [id number] us Edvin Farris MD IMG MRI PROCEDURES Final Res ult documented in this encounter Visit Diagnoses Diagnosis Olecranon bursitis of left elbow documented in this encounter Care Teams Top Hat Body Maker Relationship Specialty Start Date End Date Jaylon Gudino MD [address] [place] [address] PCP - General Internal Medicine 10/24/22 Jaylon Gudino MD [address] [place] [address] 07/23/22 documented as of this encounter
--- OUTSIDE RECORDS SUMMARY | 2024-03-03 11:42 | XMS_ITS | Encounter Summary ---
Author Organization [facility] Healthcare Address [address] [place] [address] Care Team Providers Care Trimming Department Blocker Name Role Phone Jaylon Gudino MD Unavailable [phone] Jaylon Gudino MD Primary Care Provider [phone] Reason for Visit * Reason Comments OT Treatment * Consultation (Routine) - Closed Specialty Diagnoses / Procedures Referred By Lilly kraft Referred To Contact Occupational Therapy Diagnoses Contracture of muscle of left hand Ry York MD [address] [facility] [address] [place] [address] Phone: tel: fax: [address] [address] Referral ID Status Reason Start Date Expiration Date V isits Requested Visits Authorized [id number] Closed Specialty Services Required 11/07/2022 12/07/2023 20 20 Encounter Details Date Type Department Care Team (Late st Contact Info) Description 11/21/2022 10:15 AM CDT Therapy [facility] Occupational Therapy [address] [place] [id number] Karen Elias OT [address] [place] [id number] Injury of left hand, subsequent encounter (Primary [...] file 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 Objective: No objective measurements were taken this date. Treatment Provided: MHP x's 10 minutes increase tissue extensibility Therapist completed PROM for composite flexion and extension x's 10 reps Therapist completed scar massage EDC glides using large solution spec x's 20 reps Silver ball manipulation x's 3 minutes [place] and bottle activity Yellow theraputty pokes x's 2 minutes Assessment: Patient continues to present with decreased ROM of left digits. He continues to make good progress with therapy. He reports no pain at rest but does have some discomfort with stretches. His incisionscontinue to heal well with no signs of infection. He still has some remaining sutures that have notdissolved. He verbalized understanding of continuation of HEP. He would benefit from continued OT services. ST) 11/13/22 Patient to increase left WE to 65 degrees by 3 weeks (12/04/22) 2) 11/13/22 Patient to increase left WF to 65 degrees by 3 weeks (12/04/22) 3) 11/13/22 Patient to increase left flexion to DPC to 2.5 / 2.5 / 1.5 / 2.0 by 3 weeks (12/04/22) LT) 11/13/22 Patient to increase Quick DASH score to 10% or better by 6 weeks (12/25/22) 2) 11/13/22 Patient to increase left flexion to DPC to 1.0/ 1.0 / 1.0 / 1.0 by 6 weeks (12/25/22) 3) 11/13/22 Patient to use power tools with minimal to no difficulty by 6 weeks (12/25/22) Plan: Patient to return to therapy to continue plan of care. Start Time: 10:20 AM End Time: 11:10 AM Karen Elias OTR/L documented in this encounter Plan of Treatment Not on file documented as of this encounter Visit Diagnoses Diagnosis Injury of left hand, subsequent encounter- Primary documented in this encounter Care Teams Trimming Department Blocker Relationship Specialty Start Date End Date Jaylon Gudino MD [address] [place] [address] PCP - General Internal Medicine 10/24/22 Jaylon Gudino MD [address] [place] [address] 07/23/22 documented as of this encounter
--- OUTSIDE RECORDS SUMMARY | 2024-03-03 11:42 | XMS_ITS | Encounter Summary ---
Author Organization [facility] Healthcare Address [address] [place] [address] Care Team Providers Care Rewinder Operator Name Role Phone Jaylon Gudino MD Unavailable [phone] Jaylon Gudino MD Primary Care Provider [phone] Reason for Visit * Reason Comments OT Treatment * Consultation (Routine) - Closed Specialty Diagnoses / Procedures Referred By Lilly kraft Referred To Contact Occupational Therapy Diagnoses Contracture of muscle of left hand Ry York MD [address] [facility] [address] [place] [address] Phone: tel: fax: [address] [address] Referral ID Status Reason Start Date Expiration Date V isits Requested Visits Authorized [id number] Closed Specialty Services Required 11/07/2022 12/07/2023 20 20 Encounter Details Date Type Department Care Team (Late st Contact Info) Description 12/09/2022 10:00 AM CDT Therapy [facility] Occupational Therapy [address] [place] [phone] Karen Elias OT [address] [place] [address] Injury of left hand, subsequent encounter (Primary [...] on file 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 He is having some stiffness/soreness in his left hand today. Objective: No objective measurements were taken this date. Treatment Provided: MHP x's 10 minutes to increase tissue extensibility Therapist completed aggressive scar massage Therapist completed scar massage using mini massager Patient rolled left palm on green therbar x's 3 minutes for scar management Therapist completed PROM for composite flexion and extension x's 10 reps Initiated BTE Program: Date 12/09/22 12/09/22 12/09/22 Tool Exercise Description Resistance (lbs) Work (In.lbs.deg.) Time (Seconds) 162 Audio Video Tech Strength 26.1 34,902 60 302 Radial/Ulnar Deviation 15.6 39,080 60 301 Radial/Ulnar Deviation 5.7 18,583 60 102 Pinch Strength 1.9 4,317 60 504 Supination/Pronation 18.8 53,739 60 Assessment: Patient continues to present with decreased ROM of left digits. He also has decreased strength of left hand. He continues to make good progress with therapy. He reports no pain at rest. His incisionsare well healed. He continues to have increased scar tissue of left palm. He tolerated BTE program well. He verbalized understanding of continuation of HEP. [...] care. Start Time: 10:05 AM End Time: 10:50 AM Karen Elias OTR/L documented in this encounter Plan of Treatment Not on file documented as of this encounter Visit Diagnoses Diagnosis Injury of left hand, subsequent encounter- Primary documented in this encounter Care Teams Rewinder Operator Relationship Specialty Start Date End Date Jaylon Gudino MD [address] [place] [address] PCP - General Internal Medicine 10/24/22 Jaylon Gudino MD [address] [place] [address] 07/23/22 documented as of this encounter
--- OUTSIDE RECORDS SUMMARY | 2024-03-03 11:42 | XMS_ITS | Encounter Summary ---
Author Organization [facility] Healthcare Address [address] [place] [address] Care Team Providers Care Cleat Feeder Name Role Phone Jaylon Gudino MD Unavailable [phone] Jaylon Gudino MD Primary Care Provider [phone] Reason for Visit * Reason Comments OT Treatment * Consultation (Routine) - Closed Specialty Diagnoses / Procedures Referred By Lilly kraft Referred To Contact Occupational Therapy Diagnoses Contracture of muscle of left hand Ry York MD [address] [facility] [address] [place] [address] Phone: tel: fax: [address] [address] Referral ID Status Reason Start Date Expiration Date V isits Requested Visits Authorized [id number] Closed Specialty Services Required 11/07/2022 12/07/2023 20 20 Encounter Details Date Type Department Care Team (Late st Contact Info) Description 11/25/2022 10:45 AM CDT Therapy [facility] Occupational Therapy [address] [place] [phone] Karen Elias OT [address] [place] [address] Injury of left hand, subsequent encounter (Primary [...] on file 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 Objective: No objective measurements were taken this date. Treatment Provided: MHP x's 10 minutes to increase tissue extensibility Therapist debrided skin from incision, and removed remaining sutures that have not dissolved Therapist completed aggressive scar massage Therapist fabricated an elastomer mold, educated patient on wear care. [place] theraputty and marble activity x's 10 marbles (with increased time) Valuation Consultant and pull exercise using pink theraputty x's 3 minutes Assessment: Patient continues to present with decreased ROM of left digits. He continues to make good progress with therapy. He reports no pain at rest. His incisions continue to heal well with no signs of infection. He still has some remaining sutures that have not dissolved, which were removed today. He verbalized understanding of continuation of HEP. [...] to continue plan of care. Start Time: 10:50 AM End Time: 11:40 AM Karen Elias OTR/L documented in this encounter Plan of Treatment Not on file documented as of this encounter Visit Diagnoses Diagnosis Injury of left hand, subsequent encounter- Primary documented in this encounter Care Teams Cleat Feeder Relationship Specialty Start Date End Date Jaylon Gudino MD [address] [place] [address] PCP - General Internal Medicine 10/24/22 Jaylon Gudino MD [address] [place] [address] 07/23/22 documented as of this encounter
--- OUTSIDE RECORDS SUMMARY | 2024-03-03 11:42 | XMS_ITS | Encounter Summary ---
Author Organization [facility] Healthcare Address [address] [place] [address] Care Team Providers Care Dopeman Name Role Phone Jaylon Gudino MD Unavailable [phone] Jaylon Gudino MD Primary Care Provider [phone] Reason for Visit * Reason Comments OT Treatment * Consultation (Routine) - Closed Specialty Diagnoses / Procedures Referred By Lilly kraft Referred To Contact Occupational Therapy Diagnoses Contracture of muscle of left hand Ry York MD [address] [facility] [address] [address] [place] [address] Phone: tel: fax: [address] [address] Referral ID Status Reason Start Date Expiration Date V isits Requested Visits Authorized [id number] Closed Specialty Services Required 11/07/2022 12/07/2023 20 20 Encounter Details Date Type Department Care Team (Late st Contact Info) Description 12/05/2022 10:15 AM CDT Therapy [facility] Occupational Therapy [address] [place] [phone] Karen Elias OT [address] [place] [phone] Injury of left hand, subsequent encounter (Primary [...] on file 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 Objective: No objective measurements were taken this date. Treatment Provided: MHP x's 10 minutes to increase tissue extensibility Therapist completed aggressive scar massage Therapist completed PROM for composite flexion and extension x's 10 reps Yellow theraputty and putty tools (RD/UD, bottle cap, and rocker) x's 3 minutes each Green clothes pin and small cube activity (stacking 3 - 4 high) - tip to tip pinch Green clothes pin and small cube activity (stacking 3 - 4 high) - 3 point pinch Green clothes pin and small cube activity (stacking 3 - 4 high) - lateral pinch Assessment: Patient continues to present with decreased ROM of left digits. He continues to make good progress with therapy. He reports no pain at rest. His incisions are well healed. He continues to have increased scar tissue of left palm. He verbalized understanding of continuation of HEP. [...] no difficulty by 6 weeks (12/25/22) Plan: Set up BTE program. Patient to continue plan of care. Start Time: 10:15 AM End Time: 11:00 AM Karen Elias OTR/L documented in this encounter Plan of Treatment Not on file documented as of this encounter Visit Diagnoses Diagnosis Injury of left hand, subsequent encounter- Primary documented in this encounter Care Teams Dopeman Relationship Specialty Start Date End Date Jaylon Gudino MD [address] [place] [address] PCP - General Internal Medicine 10/24/22 Jaylon Gudino MD [address] [place] [address] 07/23/22 documented as of this encounter
--- OUTSIDE RECORDS SUMMARY | 2024-03-03 11:42 | XMS_ITS | Encounter Summary ---
Author Organization [facility] Healthcare Address [address] [place] [address] Care Team Providers Care Maintenance Services Dispatcher Name Role Phone Jaylon Gudino MD Unavailable [phone] Jaylon Gudino MD Primary Care Provider [phone] Reason for Visit * Reason Comments OT Treatment * Consultation (Routine) - Closed Specialty Diagnoses / Procedures Referred By Lilly kraft Referred To Contact Occupational Therapy Diagnoses Contracture of muscle of left hand Ry York MD [address] [facility] [address] [place] [address] Phone: tel: fax: [address] [address] Referral ID Status Reason Start Date Expiration Date V isits Requested Visits Authorized [id number] Closed Specialty Services Required 11/07/2022 12/07/2023 20 20 Encounter Details Date Type Department Care Team (Late st Contact Info) Description 12/26/2022 10:00 AM CDT Therapy [facility] Occupational Therapy [address] [place] [phone] Karen Elias OT [address] [place] [address] Injury of left hand, subsequent encounter (Primary [...] on file 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 1 - No Difficulty Quick DASH Disability/Symptom Score: 4.55 Left flexion to DPC: 2.0 / 1.9 / 0.0 / 1.3 Active Wrist and Forearm Range of Motion Right Left Extension/ Flexion Extension/ Flexion 66/55 Radial/Ulnar Deviation Radial/Ulnar Deviation Supination/ Pronation Supination/ Pronation STRENGTH Field Contractor Pinch Right Left Right Left Trial 1 74 54 Lateral Trial 2 71 44 Tip to Tip Trial 3 70 44 3- Point Average 71.7 47.3 Treatment Provided: Discussed discharge plan of care with patient Discussed goal progress with patient Therapist completed aggressive scar massage Therapist completed scar massage using mini massager Therapist completed PROM for composite flexion and extension x's 10 reps Assessment: Patient continues to present with decreased ROM of left digits but has made good progress. He did not meet all of his goals but reports no limitations with any tasks. He continues to have increased scar tissue but it continues to improve. He verbalized understanding of continuation of scar management and HEP. He no longer requires skilled OT services. ST) 11/13/22 Patient to increase left WE to 65 degrees by 3 weeks (12/04/22) - met 2) 11/13/22 Patient to increase left WF to 65 degrees by 3 weeks (12/04/22) - not met 3) 11/13/22 Patient to increase left flexion to DPC to 2.5 / 2.5 / 1.5 / 2.0 by 3 weeks (12/04/22) -met LT) 11/13/22 Patient to increase Quick DASH score to 10% or better by 6 weeks (12/25/22) - met 2) 11/13/22 Patient to increase left flexion to DPC to 1.0/ 1.0 / 1.0 / 1.0 by 6 weeks (12/25/22) -not met 3) 11/13/22 Patient to use power tools with minimal to no difficulty by 6 weeks (12/25/22) - met Plan: This note will serve as patients discharge. Start Time: 10:00 AM End Time: 10:45 AM Karen Elias OTR/L documented in this encounter Plan of Treatment Not on file documented as of this encounter Visit Diagnoses Diagnosis Injury of left hand, subsequent encounter- Primary documented in this encounter Care Teams Maintenance Services Dispatcher Relationship Specialty Start Date End Date Jaylon Gudino MD [address] [place] [address] PCP - General Internal Medicine 10/24/22 Jaylon Gudino MD [address] [place] [address] 07/23/22 documented as of this encounter
--- OUTSIDE RECORDS SUMMARY | 2024-03-03 11:42 | XMS_ITS | Encounter Summary ---
Author Organization [facility] Healthcare Address [address] [place] [address] Care Team Providers Care Rn Teacher Name Role Phone Jaylon Gudino MD Unavailable [phone] Jaylon Gudino MD Primary Care Provider [phone] Reason for Visit * Reason Comments OT Treatment * Consultation (Routine) - Closed Specialty Diagnoses / Procedures Referred By Lilly kraft Referred To Contact Occupational Therapy Diagnoses Contracture of muscle of left hand Ry York MD [address] [facility] [address] [place] [address] Phone: tel: fax: [address] [address] Referral ID Status Reason Start Date Expiration Date V isits Requested Visits Authorized [id number] Closed Specialty Services Required 11/07/2022 12/07/2023 20 20 Encounter Details Date Type Department Care Team (Late st Contact Info) Description 12/16/2022 10:00 AM CDT Therapy [facility] Occupational Therapy [address] [place] [phone] Karen Elias OT [address] [place] [phone] Injury of left hand, subsequent encounter (Primary [...] on file 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 Objective: Patient to return to therapy to continue plan of care. Treatment Provided: MHP x's 10 minutes to increase tissue extensibility Therapist completed aggressive scar massage Therapist completed scar massage using mini massager Patient rolled left palm on green therbar x's 3 minutes for scar management Therapist completed PROM for composite flexion and extension x's 10 reps Green clothes pin and small cube activity (stacking 4-5 high) - 3 point pinch Green clothes pin and small cube activity (stacking 4-5 high) - lateral pinch Yellow theraputty and putty tools (RD/UD, bottle cap, and rocker) x's 2 minutes each Assessment: Patient continues to present with decreased ROM of left digits. He also has decreased strength of left hand. He continues to make good progress with therapy. He reports no pain at rest. He continues to have increased scar tissue [...] care. Start Time: 10:05 AM End Time: 11:50 AM Karen Elias OTR/L documented in this encounter Plan of Treatment Not on file documented as of this encounter Visit Diagnoses Diagnosis Injury of left hand, subsequent encounter- Primary documented in this encounter Care Teams Rn Teacher Relationship Specialty Start Date End Date Jaylon Gudino MD [address] [place] [address] PCP - General Internal Medicine 10/24/22 Jaylon Gudino MD [address] [place] [address] 07/23/22 documented as of this encounter
--- OUTSIDE RECORDS SUMMARY | 2024-03-03 11:42 | XMS_ITS | Encounter Summary ---
Author Organization [facility] Healthcare Address [address] [place] [address] Care Team Providers Care Logging Contractor Name Role Phone Jaylon Gudino MD Unavailable [phone] Jaylon Gudino MD Primary Care Provider [phone] Reason for Visit * Reason Comments OT Treatment * Consultation (Routine) - Closed Specialty Diagnoses / Procedures Referred By Lilyl kraft Referred To Contact Occupational Therapy Diagnoses Contracture of muscle of left hand Ry York MD [address] [facility] [address] [place] [address] Phone: tel: fax: [address] [address] Referral ID Status Reason Start Date Expiration Date V isits Requested Visits Authorized [id number] Closed Specialty Services Required 11/07/2022 12/07/2023 20 20 Encounter Details Date Type Department Care Team (Late st Contact Info) Description 12/23/2022 10:00 AM CDT Therapy [facility] Occupational Therapy [address] [place] [phone] Karen Elias OT [address] [place] [address] Injury of left hand, subsequent encounter (Primary [...] on file 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 Objective: No objective measurements were taken this date. Treatment Provided: MHP x's 10 minutes to increase tissue extensibility Therapist completed aggressive scar massage Therapist completed scar massage using mini massager Patient rolled left palm on blue therbar x's 3 minutes for scar management Therapist completed PROM for composite flexion and extension x's 10 reps WB into pink theraputty x's 3 minutes Pinching activity using pink theraputty x's 3 minutes Yellow theraputty and putty tools (RD/UD, bottle [...] Primary documented in this encounter Care Teams Logging Contractor Relationship Specialty Start Date End Date Jaylon Gudino MD [address] [place] [address] PCP - General Internal Medicine 10/24/22 Jaylon Gudino MD [address] [place] [address] 07/23/22 documented as of this encounter
--- OUTSIDE RECORDS SUMMARY | 2024-03-03 11:42 | XMS_ITS | Encounter Summary ---
Author Organization [facility] Healthcare Address [address] [place] [address] Care Team Providers Care High Density Press Operator Name Role Phone Jaylon Gudino MD Unavailable [phone] Jaylon Gudino MD Primary Care Provider [phone] Reason for Visit * Reason Comments OT Treatment * Consultation (Routine) - Closed Specialty Diagnoses / Procedures Referred By Lilly kraft Referred To Contact Occupational Therapy Diagnoses Contracture of muscle of left hand Ry York MD [address] [facility] [address] [address] [address] [place] [address] Phone: tel: fax: [address] [address] Referral ID Status Reason Start Date Expiration Date V isits Requested Visits Authorized [id number] Closed Specialty Services Required 11/07/2022 12/07/2023 20 20 Encounter Details Date Type Department Care Team (Late st Contact Info) Description 12/19/2022 10:00 AM CDT Therapy [facility] Occupational Therapy [address] [place] [address] Karen Elias OT [address] [place] [address] Injury of left hand, subsequent encounter (Primary [...] on file 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 He is going to attempt to paint at his daughters house. Objective: No objective measurements were taken this date. Treatment Provided: MHP x's 10 minutes to increase tissue extensibility Therapist completed aggressive scar massage Therapist completed scar massage using mini massager Patient rolled left palm on blue therbar x's 3 minutes for scar management Therapist completed PROM for composite flexion and extension x's 10 reps WB in to pink theraputty for digit extension x's 3 minutes Fruit Rancher and pull exercise using pink theraputty x's [...] Primary documented in this encounter Care Teams High Density Press Operator Relationship Specialty Start Date End Date Jaylon Gudino MD [address] [place] [address] PCP - General Internal Medicine 10/24/22 Jaylon Gudino MD [address] [place] [address] 07/23/22 documented as of this encounter
--- OUTSIDE RECORDS SUMMARY | 2024-03-03 11:42 | XMS_ITS | Encounter Summary ---
Author Organization [facility] Healthcare Address [address] [place] [address] Care Team Providers Care Puppy Walker Name Role Phone Jaylon Gudino MD Unavailable [phone] Jaylon Gudino MD Primary Care Provider [phone] Reason for Visit * Reason Comments OT Treatment * Consultation (Routine) - Closed Specialty Diagnoses / Procedures Referred By Lilly kraft Referred To Contact Occupational Therapy Diagnoses Contracture of muscle of left hand Ry York MD [address] [facility] [address] [place] [address] Phone: tel: fax: [address] [address] Referral ID Status Reason Start Date Expiration Date V isits Requested Visits Authorized [id number] Closed Specialty Services Required 11/07/2022 12/07/2023 20 20 Encounter Details Date Type Department Care Team (Late st Contact Info) Description 11/28/2022 10:45 AM CDT Therapy [facility] Occupational Therapy [address] [place] [phone] Karen Elias OT [address] [place] [address] Injury of left hand, subsequent encounter (Primary [...] on file 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 One night it did irritate his hand. Objective: No objective measurements were taken this date. Treatment Provided: MHP x's 10 minutes to increase tissue extensibility Therapist completed aggressive scar massage Therapist completed PROM for composite flexion and extension x's 10 reps [place] theraputty and marble activity x's 10 marbles (with increased time) Hands Assembler and pull exercise using pink theraputty x's 3 minutes Green therbar twists x's 30 twist Green therbar bends x's 30 bends Assessment: Patient continues to present with decreased [...] to continue plan of care. Start Time: 10:45 AM End Time: 11:30 AM Karen Elias OTR/L documented in this encounter Plan of Treatment Not on file documented as of this encounter Visit Diagnoses Diagnosis Injury of left hand, subsequent encounter- Primary documented in this encounter Care Teams Puppy Walker Relationship Specialty Start Date End Date Jaylon Gudino MD [address] [place] [address] PCP - General Internal Medicine 10/24/22 Jaylon Gudino MD [address] [place] [address] 07/23/22 documented as of this encounter
--- OUTSIDE RECORDS SUMMARY | 2024-03-03 11:42 | XMS_ITS | Encounter Summary ---
Author Organization [facility] Healthcare Address [address] [place] [address] Care Team Providers Care Real Estate Subagent Name Role Phone Jaylon Gudino MD Unavailable [phone] Jaylon Gudino MD Primary Care Provider [phone] Reason for Visit * Reason Comments OT Treatment * Consultation (Routine) - Closed Specialty Diagnoses / Procedures Referred By Lilly kraft Referred To Contact Occupational Therapy Diagnoses Contracture of muscle of left hand Ry York MD [address] [facility] [address] [place] [address] Phone: tel: fax: [address] [address] Referral ID Status Reason Start Date Expiration Date V isits Requested Visits Authorized [id number] Closed Specialty Services Required 11/07/2022 12/07/2023 20 20 Encounter Details Date Type Department Care Team (Late st Contact Info) Description 12/12/2022 10:00 AM CDT Therapy [facility] Occupational Therapy [address] [place] [phone] Karen Elias OT [address] [place] [address] Injury of left hand, subsequent encounter (Primary [...] on file 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 He is here at the hospital. Objective: No objective measurements were taken this date. Treatment Provided: MHP x's 10 minutes to increase tissue extensibility Therapist completed aggressive scar massage Therapist completed scar massage using mini massager Patient rolled left palm on green therbar x's 3 minutes for scar management Therapist completed PROM for composite flexion and extension x's 10 reps Power gripper exercise at 35 lbs (black spring) x's 25 large pegs x's 2 sets Issued new santiago Fabricated a new elastomer mold for 3rd webspace Assessment: Patient continues to present with decreased [...] to continue plan of care. Start Time: 10:10 AM End Time: 10:50 AM Karen Elias OTR/L documented in this encounter Plan of Treatment Not on file documented as of this encounter Visit Diagnoses Diagnosis Injury of left hand, subsequent encounter- Primary documented in this encounter Care Teams Real Estate Subagent Relationship Specialty Start Date End Date Jaylon Gudino MD [address] [place] [address] PCP - General Internal Medicine 10/24/22 Jaylon Gudino MD [address] [place] [address] 07/23/22 documented as of this encounter
--- OUTSIDE RECORDS SUMMARY | 2024-03-03 11:42 | XMS_ITS | Encounter Summary ---
Author Organization [facility] Healthcare Address [address] [place] [address] Care Team Providers Care Hone Operator Name Role Phone Jaylon Gudino MD Unavailable [phone] Jaylon Gudino MD Primary Care Provider [phone] Reason for Visit * Reason Comments OT Treatment * Consultation (Routine) - Closed Specialty Diagnoses / Procedures Referred By Lilly kraft Referred To Contact Occupational Therapy Diagnoses Contracture of muscle of left hand Ry York MD [address] [facility] [address] [place] [address] Phone: tel: fax: [address] [address] Referral ID Status Reason Start Date Expiration Date V isits Requested Visits Authorized [id number] Closed Specialty Services Required 11/07/2022 12/07/2023 20 20 Encounter Details Date Type Department Care Team (Late st Contact Info) Description 12/02/2022 10:15 AM CDT Therapy [facility] Occupational Therapy [address] [place] [address] Karen Elias OT [address] [place] [address] Injury of left hand, subsequent encounter (Primary [...] on file 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 He has been wearing his elastomer mold at night to assist with scar tissue. Objective: No objective measurements were taken this date. Treatment Provided: MHP x's 10 minutes to increase tissue extensibility Therapist completed aggressive scar massage Therapist completed PROM for composite flexion and extension x's 10 reps Patient rolled left palm on green therbar x's 3 minutes for scar management Power gripper exercise at 35 lbs (black spring) x's 25 large pegs x's 2 sets Red clothes pin and small cube activity (stacking [...] to continue plan of care. Start Time: 10:30 AM End Time: 11:20 AM Karen Elias OTR/L documented in this encounter Plan of Treatment Not on file documented as of this encounter Visit Diagnoses Diagnosis Injury of left hand, subsequent encounter- Primary documented in this encounter Care Teams Hone Operator Relationship Specialty Start Date End Date Jaylon Gudino MD [address] [place] [address] PCP - General Internal Medicine 10/24/22 Jaylon Gudino MD [address] [place] [address] 07/23/22 documented as of this encounter
--- OUTSIDE RECORDS SUMMARY | 2024-03-03 11:43 | XMS_ITS | Encounter Summary ---
Author Organization [facility] Healthcare Address [address] [place] [address] Care Team Providers Care Health Aid Name Role Phone Unknown, Notinfile Primary Care Provider Unavail able Jaylon Gudino MD Unavailable [phone] Encounter Details Date Type Department Care Team (Late st Contact Info) Description 10/16/2022 3:30 PM CDT Lab [facility] Advanced Medicine [facility] Advanced Medicine ([facility]) [address] [place] [phone] Hand laceration involving tendon, left, initial encounter Social History Tobacco Use Types Packs/Day Years Used Date Smoking Tobacco: Former Cigarettes Q uit: 1989 AUDIT-C Answer Date Recorded Q1: How often do you have a drink containing alc ohol? 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 Gender Identity Not on file Sexual Orientation Not on file documented as of this encounter Plan of Treatment Not on file documented as of this encounter Procedures Procedure Name Priority Date/Time Associated Diagnosis Comments EGFR Routine 10/16/2022 3:23 PM CDT Hand laceration involving tendon, left, initial encounter DIFFERENTIAL AUTO Routine 10/16/2022 3:2 3 PM CDT Hand laceration involving tendon, left, initial encounter CBC WITH AUTO DIFFERENTIAL Routine 10/16/2022 3:23 PM CDT Hand laceration involving tendon, left, initial encounter BASIC METABOLIC PANEL Routine 10/16/2022 3:23 PM CDT Hand laceration involving tendon, left, initial encounter documented in this encounter Results * (ABNORMAL) eGFR (10/16/2022 3:23 PM CDT) eGFR 60(L) 90 - 130 mL/min/1. 73 m2 [facility]ANE [facility] Comment: Interpretive Data Reference Interval Normal ?>/= 90 mL/min/1.73m2 Mildly decreased* ? 60 - 89 mL/min/1.73m2 Mildly to moderately decreased ?45 - 59 mL/min/1.73m2 Moderately to severely decreased ??30 - 44 mL/min/1.73m2 Severely decreased ?15 - 29 mL/min/1.73m2 Kidney Failure ?< 15 ??mL/min/1.73m2 *Relative to young adult level Estimated glomerular filtration rate is determined by the 2020 CKD-EPI equation recommended by the National Kidney Foundation (A Unifying Approach to GFR Estimation: Recommendations of the NKF-ASK Task Force on Reassessing the Inclusion of Race in Diagnosing Kidney Disease, JASN 2020). The CKD-EPI equation should not be used for patients with unstable renal function and has not been validated in children and those over 70. Current interpretive data was last reviewed 2020. Blood 10/16/2022 3:23 PM CDT 10/16/2022 3:51 PM CDT us Ry York MD LAB BLOOD ORDERABLES Isela jackson Result [facility] [place] [address] * Differential, auto (10/16/2022 3:23 PM CDT) Neutrophil abs 4.4 1.7 - 6.5 K/cumm [facility] Imm gran abs 0.0 0.0 - 0.1 K/cumm [facility] Lymphocyte abs 1.9 0.8 - 3.3 K/cumm [facility] Monocyte abs 0.8 0.2 - 0.8 K/cumm [facility] Eosinophil abs 0.2 0.0 - 0.5 K/cumm [facility] Basophil abs 0.1 0.0 - 0.1 K/cumm [facility] Neutrophil pct 59.8 % [facility] Comment: Interpretive Data Percent cell count reference ranges are not reported, since discordance with absolute values may lead to misinterpretation of CBC data. Current Interpretive Data was last revised on 2017. Imm gran pct 0.3 % [facility] Comment: Interpretive Data Percent cell count reference ranges are not reported, since discordance with absolute values may lead to misinterpretation of CBC data. Current Interpretive Data was last revised on 2017. Lymphocyte pct 26.2 % [facility] Comment: Interpretive Data Percent cell count reference ranges are not reported, since discordance with absolute values may lead to misinterpretation of CBC data. Current Interpretive Data was last revised on 2017. Monocyte pct 10.8 % [facility] Comment: Interpretive Data Percent cell count reference ranges are not reported, since discordance with absolute values may lead to misinterpretation of CBC data. Current Interpretive Data was last revised on 2017. Eosinophil pct 2.2 % [facility] Comment: Interpretive Data Percent cell count reference ranges are not reported, since discordance with absolute values may lead to misinterpretation of CBC data. Current Interpretive Data was last revised on 2017. Basophil pct 0.7 % [facility] Comment: Interpretive Data Percent cell count reference ranges are not reported, since discordance with absolute values may lead to misinterpretation of CBC data. Current Interpretive Data was last revised on 2017. Blood 10/16/2022 3:23 PM CDT 10/16/2022 3:51 PM CDT Ry York MD LAB BLOOD ORDERABLES Isela l Result Performing Organization Address [facility] de Phone Number [facility] Department [place] [address] * (ABNORMAL) CBC with auto differential (10/16/2022 3:23 PM CDT) [facility] WBC 7.3 3.8 - 9.9 K/cumm [facility] Hgb 12.9(L) 13.0 - 17.5 g/dL [facility] Hct 39.0 38.9 - 50.3 % [facility] Plt 203 150 - 400 K/cumm [facility] MPV 10.8 9.1 - 12.3 fL [facility] RBC 4.50 4.30 - 5.80 M/cumm [facility] MCV 86.7 81.3 - 96.4 fL [facility] MCH 28.7 27.1 - 33.3 pg [facility] MCHC 33.1 32.3 - 35.7 g/dL [facility] RDW CV 11.8 11.1 - 14.9 % [facility] RDW SD 37.4 35.7 - 48.1 fL [facility] NRBC abs 0.00 0.00 - 0.01 K/cumm [facility] Blood 10/16/2022 3:23 PM CDT 10/16/2022 3:51 PM CDT Ry York MD LAB BLOOD ORDERABLES Isela l Result [facility] [place] [address] * Basic metabolic panel (10/16/2022 3:23 PM CDT) Pathologist [facility] Sodium 142 135 - 145 mmol/L [facility] Potassium, pl 4.1 3.3 - 4.9 mmol/L [facility] Chloride 105 97 - 110 mmol/L [facility] CO2 27 22 - 32 mmol/L [facility] Anion gap 10 2 - 15 mmol/L [facility] BUN 22 6 - 25 mg/dL [facility] Creatinine 1.23 0.80 - 1.30 mg/dL [facility] Glucose 104 70 - 199 mg/dL [facility] Comment: Interpretive Data Fasting glucose >/= 126 mg/dl is diagnostic for diabetes. ?? Fasting is defined as no caloric intake for at least 8 hours. Fasting glucose between 100 mg/dl to 125 mg/dl is diagnostic of prediabetes. In a patient with classic symptoms of hyperglycemia or hyperglycemic crisis, a random glucose >/= 200 mg/dl is diagnostic for diabetes. In the absence of unequivocal hyperglycemia, results should be confirmed by repeat testing. The classification and Diagnosis of Diabetes Diabetes Care 2021; 46: S19-S40. Current interpretive data was last revised 2022. Calcium 10.2 8.5 - 10.3 mg/dL [facility] Blood 10/16/2022 3:23 PM CDT 10/16/2022 3:51 PM CDT us Ry York MD LAB BLOOD ORDERABLES Isela l Result [facility] [place] [address] documented in this encounter Visit Diagnoses Diagnosis Hand laceration involving tendon, left, initial encounter documented in this encounter Care Teams Health Aid Relationship Specialty Start Date End Date Unknown, Notinfile PCP - General 07/23/22 10/23/22 Jaylon Gudino MD [address] [place] [address] 07/23/22 documented as of this encounter
--- OUTSIDE RECORDS SUMMARY | 2024-03-03 11:43 | XMS_ITS | Encounter Summary ---
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 LEFT Z-PLASTY Referral ID Status Reason Start Date Expiration Date Visits Re quested Visits Authorized [id number] 1 1 Encounter Details Date Type Department Care Team (Late st Contact Info) Description 11/04/2022 3:15 PM CDT Anesthesia Event [facility] [address] [place] [address] Rosalva Cha MD [phone] [place] [address] Silva Fong NP [address] [facility] [phone] [place] [address] Anesthesia Record Procedure Summary Procedure Name Responsible Anesthesiologist Anesthesia Start Time Anesthesia Stop Time LEFT THIRD WEBSPACE CONTRACTURE RELEASE, Z-PLASTY. (Left: Arm Upper) Rosalva Cha MD 11/04/22 1515 11/04/22 1604 Events Date Time Event Comment 11/04/2022 1501 1515 An Start 1516 In Room 1517 An Start Data 1519 Start Supplemental O2 1526 Anesthesia Ready 1526 Proc Start 1527 Incision Start 1559 Proc Fin 1601 Out of Room 1601 an stop data 1604 An Stop 1605 Handoff to RN I completed my handoff [...] Patient disposition at the time of handoff: No value filed. Meds Name Total fentaNYL 50 mcg propofol 190 mg lidocaine 2 % 60 mg Lactated Ringer's (LR) infusion 400 mL * Agents Name O2 N2O Air * Blood No blood administrations on file. Lines, Drains, and Airways Type Details Placement Removal Urethral Catheter Placement Date: 07/23/22; Placement Time: 1924; Inserted by: Chey Godoy BOTTLE INSPECTOR (Inserted without difficulty); Type: Temperature probe, Straight-tip; Balloon Size: 10 mL; Urine Returned: Yes (clear yellow); Removal Date: 11/04/22; Removal Time: 1613; Removal Reason: Removal date unknown/not present on admission, Not present on admission 07/23/221924 by Chey Godoy RN 11/04/221613 by Homa Onofre RN RETIRED Surgical Site 07/23/22; 2248; Le ft; Hand; Approximated with sutures, xeroform, 4x4, abd, webril, splint and leydi wrap; 02/02/24 (Retired LDA, Removed/Completed by [facility] with LDA Utility); 121 (Retired LDA, Removed/Completed by [facility] with LDA Utility) 07/23/222248 by Cristin Bond RN 02/02/24 121 by Discharge Provider, Automatic Peripheral IV Placement Date: 11/04/22; Catheter Size: 22 G; Orientation: Posterior, Right; Location: Hand; Site Prep: Chlorhexidine; Technique: Anatomical landmarks; Inserted by: dick merlos rn; Insertion Attempts: 1; Patient Tolerance: Tolerated well; Removal Date: 11/04/22; Removal Time: 16111/04/22 0000 by Malka Merlos RN 11/04/22 1613 by Homa Onofre RN documented in this encounter Social History [...] file 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 OPERATING ROOM 02 / [facility] Operating Room Anesthesia Start: 1515 Anesthesia Stop: 1604 Procedure: LEFT THIRD WEBSPACE CONTRACTURE RELEASE, Z-PLASTY. (Left: Arm Upper) Diagnosis: Contracture of muscle of left hand (Contracture of muscle of left hand [M62.442]) Providers: Ry York MD Responsible Provider: Rosalva Cha MD Anesthesia Type: MAC ASA Status: 2 Anesthesia Type: MAC Last vitals BP 145/59 Pulse 51 Temp 36.1 ??C (97 ??F) (Temporal) Resp 14 SpO2 96% Anesthesia Post Evaluation Patient location during evaluation: PACU Patient participation: complete - patient participated Level of consciousness: fully awake Pain score: 0 Pain management: adequate Airway patency: adequate Cardiovascular status: hemodynamically stable and acceptable Respiratory status: acceptable and room air Hydration status: acceptable Pt is: normothermic Nausea/Vomiting status: none No notable events documented. * Anesthesia Preprocedure Evaluation - Rosalva Cha MD - 10/21/2022 4:25 PM CDT Images from the original note were not included. [facility] Preoperative Assessment and Planning Preoperative Evaluation Record Evaluation type/location: TPAP from [facility] Planned procedure site: [facility] OR Date: 10/21/22 Anesthesia Evaluation Bacilio Ramirez is a 77 y.o. male Procedure(s): LEFT THIRD WEBSPACE CONTRACTURE RELEASE, Z-PLASTY. 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 (Left: Arm Upper), LEFT Z-PLASTY (Left: Hand) Past Medical History Information obtained from: patient and chart. Neurological + TIA (reports no residual--- unsure of date) Number of TIA episodes: 1. + CEA - left. Date of last CEA: 2014. + ICA stenosis (s/p left CEA in 2014, last US in 2018) - left internal carotid artery and right internal carotid artery. Left ICA stenosis <50%. Right ICA stenosis <50% stenosis. Pertinent negatives: seizures; neuromuscular disease; CVA/stroke; dementia/mild cognitive impairment; psychiatric history and carotid artery stent Cardiovascular + Hypertension (on Amlodipine, Valsartan) Typical systolic BP - 140 Typical diastolic BP - 50 + Hyperlipidemia (on statin) + PAD/Aorta disease - current AAA. Pertinent negatives: CAD ; OH ; CABG ; systolic/diastolic dysfunction w/o CHF ; valvular heart disease; valve replacement; atrial fibrillation; arrhythmia; pacemaker/ICD; DVT/PE; negative for CHF; drug-eluting stent(s); bare metal stent(s); unknown stent(s) type and coronary angioplasty Respiratory Pertinent negatives: non-smoker Respiratory system: negative Hepatic / Heme + History of anemia (noted in September 2022) Pertinent negatives: liver disease; history of thrombocytopenia and history of Unique positive Gastrointestinal + GERD - on daily therapy. Asymptomatic. Pertinent negatives: hiatal hernia Renal / Pertinent negatives: renal disease; dialysis and nephrolithiasis Comments: Hx: BPH Musculoskeletal/Pain Pertinent negatives: chronic pain Musculoskeletal/Pain system: negative Endocrine / Other + Thyroid disease (on Synthroid) - hypothyroidism Pertinent negatives: diabetes mellitus; obesity (BMI >30); cancer history; rheumatological disease; transplanted organ; infectious disease; eye disorder and pancreatitis Functional Capacity Functional capacity: 6-10 METs Comments: Reports riding bike daily for 10-15 miles at a time. Review of Systems + pedal edema (intermittent, improved with rest and elevation) + muscle weakness (left hand s/p traumatic injury) + numbness/tingling (left fingers s/p traumatic injury) + vision loss (reading glasses) + heartburn (daily medication) Pertinent negatives: productive cough; wheezing; SOB; recent cold/flu; fever; chest pain; palpitations; orthopnea; PND; previous transfusion; melena/hematochezia; easy bruising; bleeding problems; syncope; dizziness; chronic pain; hard of hearing; nausea; dysphagia; diarrhea; dentures/partials; chipped/loose teeth; abdominal pain; diaphoresis and no unexpected weight change PAT Summary and Plans Cardiac risk classification of planned procedure: low cardiac risk. Preoperative assessment status: complete. Additional comments: Bacilio Ramirez is a 77 y.o. male who is being evaluated prior to undergoing a low cardiac risk surgery. Revised Cardiac Risk Index factors are (none) for a total RCRI of 0 out of6. Functional capacity is 6-10 METs. Obstructive sleep apnea (CHARLETTE) screening status is STOP-BANG incomplete at 3-4 suggesting MODERATE risk for CHARLETTE. Neck circumference pending. May need CHARLETTE order set initiated if Co2 >27. This assessment was performed via telephone. Therefore the physical exam has been deferred to the day of surgery team. The patient was provided with preoperative instructions for their medications. ++The patient is on aspirin therapy for primary prevention. The patient's perioperative cardiovascular risk is deemed low or is outweighed by bleeding risk. If time permits, we support stopping aspirin 7 or more days prior to the procedure. [facility] staff message sent to surgeon's office. Please call the CPAP chart room clinician ([phone]) with any questions. Patient instructions were provided by telephone and electronically sent via [employer]. Patient verbalized understanding of instructions. Blood bank needs for day of procedure: No type and screen needed Pending labs/tests include: None TPAP process complete. Preoperative evaluation performed by Silva Fong NP on 10/21/22 at 4:30 PM . Patient Active Problem List Diagnosis Abdominal aortic aneurysm (AAA) without rupture (HCC) BPH with obstruction/lower urinary tract symptoms Chronic laryngitis Essential hypertension, benign Generalized pruritus GERD without esophagitis History of left-sided carotid endarterectomy Hyperglycemia Laryngopharyngeal reflux (LPR) Mixed hyperlipidemia Nasal turbinate hypertrophy Pain in right shoulder PNAR (perennial non-allergic rhinitis) Stenosis of carotid artery Trigger middle finger of right hand Trigger ring finger of left hand Injury of left hand, initial encounter Nerve injury Other specified hypothyroidism Contracture of muscle of left hand History reviewed. No pertinent past medical history. Past Surgical History: Procedure Laterality Date APPENDECTOMY COLONOSCOPY HAND SURGERY Left 06/2022 SHOULDER SURGERY x4 Allergies Allergen Reactions Penicillins Hives Sulfa (Sulfonamide Antibiotics) Rash Moxifloxacin Unknown Simvastatin Other (See comments) MUSCLE PAIN Med List Status: Nurse Complete Set By: Zahra Gurrola RN at 10/21/2022 10:41 AM Taking? Last Dose Start Date End Date Provider acetaminophen 500 mg capsule Past Week 07/24/22 -- Tequila Burdick NP Take 2 capsules (1,000 mg total) by mouth every 6 (six) hours as needed for pain Patient taking differently: Take 2 capsules (1,000 mg total) by mouth as needed for pain amLODIPine (NORVASC) 5 mg tablet 10/21/2022 12/03/20 -- Gerson Tatum MD aspirin 81 mg enteric coated tablet 10/21/2022 -- -- Gerson Tatum MD fexofenadine (FABY) 180 mg tablet 10/20/2022 -- -- Gerson Tatum MD Lactobacillus acidophilus (PROBIOTIC ORAL) 10/21/2022 -- -- Gerson Tatum MD levothyroxine (SYNTHROID) 25 mcg tablet 10/21/2022 04/09/22 -- Gerson Tatum MD MULTIVITAMIN ORAL 10/21/2022 -- -- Gerson Tatum MD pravastatin (PRAVACHOL) 40 mg tablet 10/20/2022 02/15/21 -- Gerson Tatum MD RABEprazole DR (ACIPHEX) 20 mg EC tablet Past Month -- -- Gerson Tatum MD valsartan (DIOVAN) 160 mg tablet 10/21/2022 09/16/21 -- Gerson Tatum MD -- -- -- -- -- -- -- -- -- No current facility-administered medications for this encounter. Current Outpatient Medications: acetaminophen 500 mg capsule amLODIPine (NORVASC) 5 mg tablet aspirin 81 mg enteric coated tablet fexofenadine (FABY) 180 mg tablet Lactobacillus acidophilus (PROBIOTIC ORAL) levothyroxine (SYNTHROID) 25 mcg tablet MULTIVITAMIN ORAL pravastatin (PRAVACHOL) 40 mg tablet RABShellrazosherif RUIZ (ACIPHEX) 20 mg EC tablet valsartan (DIOVAN) 160 mg tablet Social History Tobacco Use Smoking Status Former Packs/day: .75 Types: Cigarettes Quit date: 1989 Years since quittin.6 Smokeless Tobacco Never Alcohol Use: Not At Risk (10/21/2022) AUDIT-C Frequency of Alcohol Consumption: Never Average Number of Drinks: Patient does not drink Frequency of Binge Drinking: Not on file Substance and Sexual Activity Drug Use Never Family History Problem Relation Age of Onset Anesthesia problems Neg Hx There were no vitals filed for this visit. Relevant diagnostics: ECG(s): N/A Echocardiogram(s): N/A Stress test(s): N/A Cardiac catheterization(s): N/A PFT(s): N/A Vascular studies: 08/23/2018 US Carotids Duplex Bilateral IMPRESSION: 1. MILD (LESS THAN 50%) STENOSIS OF THE RIGHT CAROTID BULB AND PROXIMAL ICA. 2. MILD (LESS THAN 50%) STENOSIS OF THE LEFT COMMON CAROTID ARTERY, CAROTID BULB AND PROXIMAL ICA. 3. VERTEBRAL FLOW IS ANTEGRADE BILATERALLY. Other: N/A PT: No results found for requested labs within last 30 days. INR: No results found for requested labs within last 30 days. APTT: No results found for requested labs within last 30 days. Hgb A1C: No results found for requested labs within last 30 days. CBC RBC: 10/16/2022: 4.50 M/cumm RDW: No results found for requested labs within last 30 days. MCHC: 10/16/2022: 33.1 g/dL MCH: 10/16/2022: 28.7 pg MCV: 10/16/2022: 86.7 fL Hct: 10/16/2022: 39.0 % Hgb: 10/16/2022: 12.9 g/dL (L) WBC: 10/16/2022: 7.3 K/cumm MPV: 10/16/2022: 10.8 fL Platelets: 10/16/2022: 203 K/cumm RDW CV: 10/16/2022: 11.8 % RDW Sd: 10/16/2022: 37.4 fL BMP Glucose: 10/16/2022: 104 mg/dL Calcium: 10/16/2022: 10.2 mg/dL Sodium: 10/16/2022: 142 mmol/L Potassium: 10/16/2022: 4.1 mmol/L CO2: 10/16/2022: 27 mmol/L Chloride: 10/16/2022: 105 mmol/L BUN: 10/16/2022: 22 mg/dL Creatinine: 10/16/2022: 1.23 mg/dL José index score: 100 DOS Physical Exam Medical history, medications, and allergies reviewed. Attestation: With today's edits, I endorse the findings of the anesthesia pre-evaluation assessment dated: 10/21/2022. Airway Exam: Mallampati: II Cervical ROM: FROM Cardiovascular Exam: Rate: regular Rhythm: regular EENT Exam: trachea midline Dental Exam: Appears intact Skin Exam: Skin is warm. Current state: Patient's current state is cooperative. Anesthesia Plan ASA 2 My patient is approved for the Anesthesia Controlled Medication protocol when under care of a METALLURGICAL SPECIALIST Planned anesthesia: MAC Induction: Induction: intravenous. Postoperative Plan: No plan for postoperative opioid use. Patient's planned disposition post procedure is Outpatient. Informed Consent: Discussed plan with METALLURGICAL SPECIALIST. Anesthesia plan and risks discussed with patient. Plan and Consent Comments: BP 161/70 Pulse 57 Temp 36.2 ??C (97.2 ??F) (Temporal) Resp 17 Ht 177.8 cm (5' 10 ) Wt 83.9 kg (185 lb) SpO2 98% BMI 26.54 kg/m?? Bacilio Ramirez has tolerated anesthesia well historically. Appropriately NPO (last solid food 11/04 @0700) and denies any recent changes in health. In agreement with plan for anesthesia today. All questions were answered. ' Consent and Attending signature: I and/or my designee have discussed the anesthesia plan, benefits, possible alternatives, parental presence at time of induction (if indicated), and clinically relevant risks that may include dental injury, unintentional awareness, and/or other complications. The patient and/or parent/legal guardian understand, and agree to proceed. All questions answered. documented in this encounter Plan of Treatment Not on file documented as of this encounter Visit Diagnoses Not on filedocumented in this encounter Administered Medications Inactive Administered Medications - up to 3 most recent administrations Medication Order MAR Action Action Date Dose Rate Site fentaNYL (SUBLIMAZE) preservative free injection intravenous, As needed, Starting on Thu11/04/22 at 1518, Anesthesia Intra-op Given 11/04/2022 3:22 PM CDT 25 mcg Given 11/04/2022 3:18 PM CDT 25 mcg Lactated Ringer's (LR) infusion 30 mL/hr, intravenous, Continuous, Starting on Thu11/04/22 at 1430, Pre-Op Restarted 11/04/2022 3:54 PM CDT Rate/Dose Verify 11/04/2022 3:15 PM CDT 30 mL/h r New Bag 11/04/2022 2:35 PM CDT 30 mL/hr 30 mL/hr lidocaine (XYLOCAINE) 20 mg/mL (2 %) injection intravenous, As needed, Starting on Thu11/04/22 at 1522, Anesthesia Intra-op, Indications: Administration of Local AnesthesiaIndications:Administration of Local Anesthesia Given 11/04/2022 3:22 PM CDT 60 mg propofoL (DIPRIVAN) 10 mg/mL IV intravenous, As needed, Starting on Thu11/04/22 at 1522, Anesthesia Intra-op Given 11/04/2022 3:48 PM CDT 10 mg Given 11/04/2022 3:46 PM CDT 20 mg Given 11/04/2022 3:42 PM CDT 20 mg documented in this encounter Care Teams Covering Machine Operator Helper Relationship Specialty Start Date End Date Jaylon Gudino MD [address] [place] [address] PCP - General Internal Medicine 10/24/22 Jaylon Gudino MD [address] [place] [address] 07/23/22 documented as of this encounter
--- OUTSIDE RECORDS SUMMARY | 2024-03-03 11:43 | XMS_ITS | Encounter Summary ---
Author Organization [facility] Healthcare Address [address] [place] [address] Care Team Providers Care Alteration Worker Name Role Phone Unknown, Notinfile Primary Care Provider Unavail able Jaylon Gudino MD Unavailable [phone] Reason for Visit * Reason Comments OT Treatment * Consultation (Routine) - Closed Specialty Diagnoses / Procedures Referred By Contact Referred To Contact Occupational Therapy Diagnoses Hand injury, left, initial encounter DyRy MD [address] [place] [address] Phone: tel: fax: [facility] Occupational Therapy [address] [facility] [address] [place] [address] [place] [address] Phone: tel: fax: Referral ID Status Reason Start Date Expiration Date V isits Requested Visits Authorized [id number] Closed Evaluate and Treat 07/24/2022 08/23/2023 20 20 Encounter Details Date Type Department Care Team (Late st Contact Info) Description 09/19/2022 10:45 AM CDT Therapy [facility] Occupational Therapy [address] [place] [address] Karen Elias, OT [address] [place] [address] Injury of left hand, subsequent encounter (Primary [...] file 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 Objective: Left flexion to DPC: 3.8 / 3.2 / 2.0 / 2.0 (Active) Treatment Provided: MHP x's 10 minutes to increase tissue extensibility Therapist completed aggressive scar massage Therapist completed PROM for composite flexion x's 10 reps Large peg activity for increased composite flexion x's 35 large pegs Re-bandaged IF with adaptic and band net Educated on EDC glides using red foam - issued for HEP Assessment: Patient continues to present with increased swelling of left digits and distal palm, although it has improved. His IF tip is healing well with no signs of infection. He has mild pain this date of left IF. He continues to have decreased ROM of left digits and wrist. He tolerated all therapy exercises well. He is making good progress with his ROM. He verbalized understanding of continuation of HEP and protocol. He would benefit from continued OT services. ST) 08/08/22 Patient to be compliant with flexor tendon protocol by 1 week (08/15/22) 2) 08/08/22 Patient to increase passive flexion to DPC to 0/0/0/0 by 3 weeks (08/29/22) LT) 08/08/22 Patient to increase Quick DASH score to 10% or better by 12 weeks (10/31/22) 2) 08/08/22 Patient to make full AROM composite fist by 6 weeks (09/19/22) Plan: Patient to return to therapy to continue plan of care. Start Time: 10:50 AM End Time: 11:35 AM Karen Elias OTR/L documented in this encounter Plan of Treatment Not on file documented as of this encounter Visit Diagnoses Diagnosis Injury of left hand, subsequent encounter- Primary documented in this encounter Care Teams Alteration Worker Relationship Specialty Start Date End Date Unknown, Notinfile PCP - General 07/23/22 10/23/22 Jaylon Gudino MD [address] [place] [address] 07/23/22 documented as of this encounter
--- OUTSIDE RECORDS SUMMARY | 2024-03-03 11:43 | XMS_ITS | Encounter Summary ---
Author Organization [facility] Healthcare Address [address] [place] [address] Care Team Providers Care Dynamo Tender Name Role Phone Jaylon Gudino MD Unavailable [phone] Jaylon Gudino MD Primary Care Provider [phone] Reason for Visit * Reason Comments OT Treatment * Consultation (Routine) - Closed Specialty Diagnoses / Procedures Referred By Lilly kraft Referred To Contact Occupational Therapy Diagnoses Contracture of muscle of left hand Ry York MD [address] [facility] [address] [place] [address] Phone: tel: fax: [address] [address] Referral ID Status Reason Start Date Expiration Date V isits Requested Visits Authorized [id number] Closed Specialty Services Required 11/07/2022 12/07/2023 20 20 Encounter Details Date Type Department Care Team (Late st Contact Info) Description 11/17/2022 10:45 AM CDT Therapy [facility] Occupational Therapy [address] [place] [id number] Karen Elias OT [address] [place] [id number] Injury of left hand, subsequent encounter (Primary [...] on file 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 Patient's incision is healing well with no signs of infection. Objective: Active Wrist and Forearm Range of Motion Right Left Extension/ Flexion Extension/ Flexion 61/56 Radial/Ulnar Deviation Radial/Ulnar Deviation Supination/ Pronation Supination/ Pronation Left flexion to DPC: 3.2 / 2.5 / 1.7 / 1.8 Active Digit Range of Motion (left extension) Index Middle Ring Small MP 0 -3 0 0 PIP -10 -11 -5 -20 DIP 0 -19 0 -12 Treatment Provided: MHP x's 10 minutes to increase tissue extensibility Therapist completed PROM for composite flexion and extension x's 10 reps Therapist completed scar massage to old incision Therapist completed edema massage EDC glides using large high school band director x's 20 reps Silver ball manipulation x's 3 minutes New measurements were taken this date. Assessment: Patient continues to present with decreased ROM of left digits and wrist. He has made improvements since evaluation. He reports no pain at rest but does have some discomfort with stretches. His incisions continue to heal well with no signs of infection. He verbalized understanding of continuation of HEP. [...] therapy to continue plan of care. Will fabricated silicone mold for scar following suture removal. Start Time: 10:55 AM End Time: 11:40 AM Karen Elias OTR/L documented in this encounter Plan of Treatment Not on file documented as of this encounter Visit Diagnoses Diagnosis Injury of left hand, subsequent encounter- Primary documented in this encounter Care Teams Dynamo Tender Relationship Specialty Start Date End Date Jaylon Gudino MD [address] [place] [address] PCP - General Internal Medicine 10/24/22 Jaylon Gudino MD [address] [place] [address] 07/23/22 documented as of this encounter
--- OUTSIDE RECORDS SUMMARY | 2024-03-03 11:43 | XMS_ITS | Encounter Summary ---
Author Organization [facility] Healthcare Address [address] [place] [address] Care Team Providers Care Electric Serviceman Name Role Phone Jaylon Gudino MD Unavailable [phone] Jaylon Gudino MD Primary Care Provider [phone] Reason for Referral * Consultation (Routine) - Closed Specialty Diagnoses / Procedures Referred By Lilly kraft Referred To Contact Occupational Therapy Diagnoses Contracture of muscle of left hand Ry York MD [address] [facility] [address] [place] [address] Phone: tel: fax: [address] [address] Referral ID Status Reason Start Date Expiration Date V isits Requested Visits Authorized [id number] Closed Specialty Services Required 11/07/2022 12/07/2023 20 20 Question Answer PTRFR OT Evaluate and Treat Therapy options discussed with patient? 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 Gender Identity Not on file Sexual Orientation Not on file documented as of this encounter Last Filed Vital Signs Vital Sign Reading Time Taken Comments Blood Pressure 145/59 11/04/2022 4:32 PM CDT Pulse 51 11/04/2022 4:32 PM CDT Temperature 36.1 ??C (97 ??F) 11/04/2022 4:04 PM CDT Respiratory Rate 14 11/04/2022 4:32 PM CDT Oxygen Saturation 96% 11/04/2022 4:32 PM CDT Inhaled Oxygen Concentration - - Weight 83.9 kg (185 lb) 10/21/2022 10:25 AM CDT Height 177.8 cm (5' 10 ) 10/21/2022 10:25 AM CDT Body Mass Index 26.54 10/21/2022 10:25 AM CDT documented in this encounter Discharge Instructions * Discharge Instructions* Ry York MD - 11/04/2022 4:22 PM CDT POSTOPERATIVE INSTRUCTIONS - Dr. York Follow-up Appointments Your first postoperative visit with Dr. York is listed on the first page of your discharge instructions. You will also need to see a hand therapist in 7 days. .. Your hand therapist will call you to set this up. Dressing and Wound Care A large dressing has been placed on your arm to reduce motion and control swelling. Keep your dressing clean and dry. Keep the dressing/splint on until your first postoperative office visit. Leave your dressing on until your hand therapist removes it. Wear a plastic bag over your dressing/splint [...] elevating hand/arm PAIN MEDICATION: A prescription for [place] has been called into your pharmacy. A prescription for an anti-inflammatory (meloxicam) has been called into your pharmacy Do not take pain medication or anti-inflammatories [...] medication, or stop taking all pain medicine. Please refer to Perioperative Narcotic Considerations form in your Pre-operative packet OFFICE CONTACT NUMBERS During business hours (Mon-Fri 8am-4:30pm) Dr. York's Transfer Pumper: JOSEF FELIPE phone: [phone] After hours/weekend (Emergencies Only; no medication refills) [facility] Medical Exchange: [phone] or toll-free * Attachments The following attachments cannot be sent through Care Everywhere. * [facility] PATH[facility] TO EXCELLENT CARE AFTER SURGERY documented [...] mouth as needed Lactobacillus acidophilus (PROBIOTIC ORAL)Indications:g [facility] Take 1 tablet/capsule by mouth daily [...] hours as needed for pain 07/24/2022 4 levothyroxine (SYNTHROID) 25 mcg tabletIndications: hypothyroidism Take 1 tablet (25 mcg total) by mouth every other day 04/09/2022 4 HYDROcodone-acetam inophen (NORCO) 5-325 mg per tabletIndications: Pain Take 1 tablet by mouth every 6 (six) hours as needed for pain 20 tablet 11/04/2022 4 meloxicam (MOBIC) 15 mg tablet TAKE 1/2 TABLET PO TWICE DAILY 30 tablet 1 11/04/2022 4 documented as of this encounter Discharge Disposition Disposition Code Departure Means Destination Comment s Discharge to home or self care documented in this encounter H&P Notes * Ry York MD - 11/04/2022 2:45 PM CDT I have reviewed the H&P, examined the patient, and endorse the findings as written. Plan of Care : Based on the above findings, I consider Bacilio Ramirez to be an acceptable risk for : Procedure(s): LEFT THIRD WEBSPACE CONTRACTURE RELEASE, Z-PLASTY. LEFT Z-PLASTY Source Note - Dy, Ry Man MD - 10/16/2022 3:00 PM CDT RETURN PATIENT VISIT CHIEF COMPLAINT: Follow-up left hand after skill saw injury INTERIM HISTORY The patient returns for follow-up left hand after skill saw injury. Part of nerve operative protocol for the ulnar digital nerve of the small finger. The patient is now 3mo after multiple finger skill saw trauma, with index pulp defect integra coverage, MF RDN and UDN allograft repairs, UDA repair,zone 2 fdp repair; RF UDN allograft repair; and SF RDN allograft repair; UDN primary repair (neuraptive protocol) performed on 07/23/2022. Here today for follow-up NEURAPTIVE protocol. Surgery was done by Dr. Glover and Dr. Stringer. He reports that he is about back to 80% of finger flexion and finger extension. He is eager to get back to all activities, has a great attitude. Eager to get back on his bike. PHYSICAL EXAMINATION GENERAL: This is a well- [...] elbow, forearm, wrist and hand motion are Full and painless with the exception ofthe small finger. His small finger DPC is 0.5. FDS FDP intact. PIP lacks about 20?? of active extension for the small finger. His incisions and traumatic lacerations are well healed. 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 For the small finger, he has a positive Tinel sign out to the tip of his finger on the ulnar side. Says he canfeel light touch on the ulnar side but not on the radial side. Sensation is absent to light touch on the ring finger pulp, present for the middle finger, variable for the index. REVIEW OF X-RAYS/STUDIES Nerve study done today as part of neuraptive study. IMPRESSION/DIAGNOSIS/ PLAN He is progressing very nicely with regards to overall use of his hand. We expect his sensation to continue to improve over time, given that he is only 3 months out from his surgery. He has a bothersome 3rd webspace contracture and he would like this addressed. We would released this and perform a Z-plasty. We discussed the possibility of recurrence wound issues swelling and stiffness, and with thi s in mind he would like to move forward with a contracture release. 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 Ry York M.D. Supervisor Paper Coating Hand and Upper Extremity [facility] Dr. York is dictating using speech recognition software. Multimedia Producer variances may occur. documented in this encounter Miscellaneous Notes * Provider Query - Ry York MD - 11/04/2022 4:52 PM CDT Provide further specificity of the procedure Left Third Webspace Contracture Release on date: 11/04/22 Z-Plasty Size (sq cm) _X___10 sq cm OR LESS ____10.1 TO 30 sq cm ____30.1 TO 60 sq cm ____OVER 60.0 sq cm Additional Provider Response: * Op Note - Ry York MD - 11/04/2022 3:27 PM CDT OPERATIVE REPORT SURGEON Ry York MD, MPH ZOO KEEPER Liam Mann MD PREOPERATIVE and POSTOPERATIVE DIAGNOSES 1. 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 Left palm/middle finger scar contracture. PROCEDURES 1. Left 3rd webspace deepening with Z-plasty. 2. Left palm/middle finger Z-plasty ANESTHESIA TYPE Mac plus local SPECIMENS None. DRAINS None. COMPLICATIONS None. DISPOSITION Recovery in stable condition. ESTIMATED BLOOD LOSS: 5cc DESCRIPTION OF PROCEDURE Patient was greeted in the holding area. The risks/benefits/alternatives to surgery had been discussed. Informed consent had been signed and the operative site was marked. The patient was transferred to the operating room. The operative limb was prepped and draped in normal sterile fashion. Surgical timeout was called. We exsanguinated limb and inflated the tourniquet.We injected 1% lidocaine [id number] with epinephrine,. We addressed the 3rd webspace contracture 1st,with a 60 degree Z type Z-plasty. After incising the skin and elevating full-thickness skin flaps, we then moved towards the left middle finger/palm contracture, which had scarred just proximal to the palmar digital crease and went just distal to it as well. We performed a combination of 2 additional 60 degree Z type Z- plasties, which after incising the skin and elevating full-thickness skin flaps, allowed for appropriate lengthening and full digital extension on active motion. We then irrigated the wounds, and inset the Z-plasty limbs for the 3rd webspace deepening with a combination of 5 0 Vicryl Rapide and 4-0 Monocryl sutures, then closed the inset skin flaps for the Z-plasties with 5 0Vicryl Rapide suture. We asked the patient actively flex and extend the fingers, there was no gapping or dehiscence of the wounds, and the patient visualize the correction, and he was satisfied. We then applied local anesthetic with 0.5% Marcaine, applied sterile dressings, and deflated the tourniquet. I was the attending surgeon present for the entire surgery. . * Pre-Procedure Instructions - Zahra Gurrola RN - 10/21/2022 10:13 AM CDT [facility] [...] remove nail coverings, artificial nails and nail chinese prior to the day of surgery. You should leave your valuables and any jewelry at home. No metal or piercings are allowed in the operating room. You should bring your insurance card, a photo ID (example: Snack Stewardess's License) and a method of payment for [...] copy is already in your Epic Chart. A Guide for Patients Having Surgery: Your [...] if you need help finding this product. SHOWERING WITH ANTISEPTIC SOAP (CHG) What You [...] Avoid shaving on the day of surgery. 2-Day CHG Bathing Protocol The Evening Before Surgery: Take a shower with Antiseptic soap (CHG). Follow the steps for ???Showering with Antiseptic Soap (CHG)?? above. Change all linens on your bed so you are sleeping in clean fresh sheets and pillowcases. Remove nail coverings, artificial nails and nail chinese. The Morning of Surgery: Take a shower [...] questions, please call the [facility] Staff at [phone], Thursday-Thursday 8am-4:30pm. All patients should read the below section: COVID 19 Updates & Visitor Policy: Please access [email or web address] for the most updated information. Information on [facility] & the Orthopedic Center: Please view [email or web address] (Patient & Visitor Information) for additional details regarding Advanced Directive forms, AWARE, directions, parking information, lodging, Internet access, dining and more. Information on [facility] or [facility] [place] ([facility]): Please view [email or web address] (Patient and Visitor Information) for parking/directions and more. For MyChart information, to activate account or password recovery, please go to [email or web address] or call [phone] (toll-free: [phone]). Information for Suicide Prevention: National Suicide Prevention Lifeline (9-249- 977-KFED (9556)). Surgery Times: For patients having surgery @ [facility] or [facility] [place] ([facility]), if your surgeon's office has not notified you of your surgery time by NOON THE BUSINESS DAY BEFORE your surgery, please call [phone] and ask for your surgeon's office. documented in this encounter Plan of Treatment Scheduled Referrals Name Type Priority Associated Diagnoses Order Schedule Ambulatory referral order to Occupational Therapy - Outpatient Referral Routine Contracture of muscle of left hand Ordered: 11/07/2022 documented as of this encounter Procedures Procedure Name Priority Date/Time Associated Diagnosis Comments RELEASE CONTRACTURE OF UPPER EXTREMITY 11/04/2022 3:16 PM CDT Contracture of muscle of left hand documented in this encounter Visit Diagnoses Diagnosis Contracture of muscle of left hand- Primary Contracture of muscle of left hand documented in this encounter Admitting Diagnoses Diagnosis Contracture of muscle of left hand documented in this encounter Administered Medications Inactive Administered Medications - up to 3 most recent administrations Medication Order MAR Action Action Date Dose Rate Site acetaminophen (TYLENOL) tablet 1,000 mg 1,000 mg, oral, Once, On Thu11/04/22 at 1430, For 1 dose, Pre-Op Given 11/04/2022 2:38 PM CDT 1,000 mg Carrier Fluids for Secondary Infusion - 0.9% Sodium Chloride 30 mL, intravenous, As needed, For priming tubing and/or flushing, Starting on Thu11/04/22 at 1349, Pre-Op, 0-250 ml/hr to flush line after [...] 2:35 PM CDT 30 mL/hr 30 mL/hr sodium chloride 0.9% flush 0.5-20 mL 0.5-20 mL, intra-catheter, As needed, line care, Starting on Thu11/04/22 at 1349, Pre-Op, Flush volume based on line type and size. Flush before and after each use. documented in this encounter Discontinued Medications Medication Sig Discontinue Reason Start Date End Da te amLODIPine (NORVASC) 5 mg tablet Take 1 tablet (5 mg total) by mouth daily 10/21/2022 aspirin 325 mg tablet Take 1 tablet (325 mg total) by mouth daily 07/24/2022 10/21/2022 dipyridamole (PERSANTINE) 25 mg tablet Take 1 tablet (25 mg total) by mouth 3 (three) times a day 07/24/2022 10/21/2022 losartan (COZAAR) 100 mg tablet Take 1 tablet by mouth daily 12/03/2020 10/21/2022 losartan (COZAAR) 100 mg tablet Take 1 tablet (100 mg total) by mouth daily 10/21/2022 oxyCODONE (ROXICODONE) 5 mg immediate release tabletIndications:Pain Take 1 tablet (5 mg total) by mouth every 4 (four) hours as needed for pain 07/24/2022 10/21/2022 polyethylene glycol (MIRALAX) 17 gram packetIndications:consti pation Take 1 packet (17 g total) by mouth daily 07/25/2022 10/21/2022 pravastatin (PRAVACHOL) 40 mg tablet Take 1 tablet (40 mg total) by mouth daily 10/21/[address] (ACIPHEX) 20 mg EC tablet TAKE 2 TABLETS BY MOUTH ONCE DAILY. TAKE 30-60 MINUTES BEFORE SUPPER. 11/06/2020 10/21/2022 documented as of this encounter Historical Medications * This list may reflect changes made after this encounter. fexofenadine (FABY) 180 mg tabletIndications: Seasonal Allergic Rhinitis Take 1 tablet (180 mg total) by mouth as needed Lactobacillus acidophilus (PROBIOTIC ORAL)Indications:g [facility] Take 1 tablet/capsul e by mouth daily as needed MULTIVITAMIN ORALIndications:[place] pplement Take 1 tablet by mouth every morning aspirin 81 mg enteric coated tabletIndications: Myocardial Reinfarction Prevention,prevent ion of thrombosis Take 1 tablet (81 mg total) by mouth every morning added in this encounter Active and Recently Administered Medications Times are shown in CDT. Scheduled Medication Order 11/02/2022 11/03/2022 11/04/2022 acetaminophen (TYLENOL) tablet 1,000 mg (COMPLETED) 1,000 mg, oral, Once, On Thu11/04/22 at 1430, For 1 dose, Pre-Op 1438 (Given - Provid er: Malka Gibbs RN) Continuous Medication Order 11/02/2022 11/03/2022 11/04/2022 Lactated Ringer's (LR) infusion 30 mL/hr, intravenous, Continuous, Starting on Thu11/04/22 at 1430, Pre-Op 1435 (New Bag - Prov ider: Malka Gibbs RN)1515 (Rate/Dose Verify - Provider: Maricruz Stack CRNA)1553 (Paused - Provider: Maricruz Stack CRNA - Comment: Switch to gravity)1554 (Restarted - Provider: Maricruz Stack CRNA)205 (Due: Stopped) PRN Medication Order 11/02/2022 11/03/2022 11/04/2022 BUPivacaine (MARCAINE) 0.5 % (5 mg/mL) preservative free injection (CANCELED) As needed, Starting on Thu11/04/22 at 1541, Intra-Op 1541 (Given - Provid er: Ry York MD) Carrier Fluids for Secondary Infusion - 0.9% Sodium Chloride 30 mL, intravenous, As needed, For priming tubing and/or flushing, Starting on Thu11/04/22 at 1349, Pre-Op, 0-250 ml/hr to flush line after IV infusions when no maintenance IV ordered. Infuse 30mL at the same rate as the secondary infusion. Run as primary IV, not intended for KVO. fentaNYL (SUBLIMAZE) preservative free syringe 50 mcg 50 mcg, intravenous, Once as needed, breakthrough pain, Starting on Thu11/04/22 at 1604, For 1 dose, Phase I, Administer for uncontrolled or increasing pain while in PACU only. HYDROmorphone (DILAUDID) injection 0.2 mg 0.2 mg, intravenous, Administer over 2 Minutes, Every 10 min PRN, 1st line for pain, Starting on Thu11/04/22 at 1604, Phase I, Switch to 2nd line analgesic order if pain is uncontrolled or increasing after 2 doses. Notify Anesthesiologist if total PACU dose reaches 2 mg and pain score 5/10 or more., Indications: Pain HYDROmorphone (DILAUDID) injection 0.4 mg 0.4 mg, intravenous, Administer over 2 Minutes, Every 10 min PRN, 2nd line for pain, Starting on Thu11/04/22 at 1604, Phase I, May administer 10 mintes after 2nd dose of 1st line analgesic agent for uncontrolled or increasing pain. Revert to 1st line dose if POSS of 3. Notify Anesthesiologist if total PACU dose reaches 2 mg and pain score 5/10 or more., Indications: Pain lidocaine-EPINEPHrine (XYLOCAINE with EPI) 1 %-1:100,000 injection (CANCELED) As needed, Starting on Thu11/04/22 at 1541, Intra-Op, Indications: Administration of Local Anesthesia 1541 (Given - Provid er: Ry York MD) naloxone (NARCAN) 0.4 mg/mL injection 0.04-0.4 mg 0.04-0.4 mg, intravenous, Once as needed, other, excessive sedation/respiratory depression, Starting on Thu11/04/22 at 1604, For 1 dose, Phase I, Dilute 0.4 [...] Once as needed, nausea, vomiting, Starting on Thu11/04/22 at 1604, For 1 dose, Phase I oxyCODONE (ROXICODONE) tablet 5 mg 5 mg, oral, Once as needed, PRN for breakthrough when able to tolerate PO, Starting on Thu11/04/22 at 1604, For 1 dose, Phase I, When able to tolerate PO. May repeat in 1 hour if pain is uncontrolled or increasing after 1st dose., Indications: Pain sodium chloride 0.9% flush 0.5-20 mL 0.5-20 mL, intra-catheter, As needed, line care, Starting on Thu11/04/22 at 1349, Pre-Op, Flush volume based on line type and size. Flush before and after each use. sodium chloride 0.9% irrigation (CANCELED) As needed, Starting on Thu11/04/22 at 1541, Intra-Op 1541 (Given - Provid er: Ry York MD) sterile water irrigation (CANCELED) As needed, Starting on Thu11/04/22 at 1532, Intra-Op 1532 (Given - Provid er: Lesa Shepard RN - Comment: instrument rinse) documented in this encounter Orders Medications Ordered That Reece ht Not Have Been Administered Count Last Ordered Date First Ordered Date BUPivacaine (MARCAINE) 0.5 % (5 mg/mL) preservative free injection 1 11/04/2022 Carrier Fluids for Secondary Infusion - 0.9% Sodium Chloride 1 11/04/2022 fentaNYL (SUBLIMAZE) preserv ative free syringe 50 mcg 1 11/04/2022 HYDROmorphone (DILAUDID) injection 0.2 mg 1 11/04/2022 HYDROmorphone (DILAUDID) injection 0.4 mg 1 11/04/2022 lidocaine-EPINEPHrine (XYLOC AYO with EPI) 1 %-1:100,000 injection 1 11/04/2022 naloxone (NARCAN) 0.4 mg/mL injection 0.04-0.4 mg 1 11/04/2022 ondansetron (ZOFRAN) injection 4 mg 1 11/04 oxyCODONE (ROXICODONE) tablet 5 mg 1 2022 sodium chloride 0.9% flush 0.5-20 mL 1 06/2022 sodium chloride 0.9% irrigation 1 3 sterile water irrigation 1 11/04/2022 Discharge Count Last Ordered Date First Orde red Date DISCHARGE PATIENT 1 11/07/2022 documented in this encounter Care Teams Electric Serviceman Relationship Specialty Start Date End Date Jaylon Gudino MD [address] [place] [address] PCP - General Internal Medicine 10/24/22 Jaylon Gudino MD [address] [place] [address] 07/23/22 documented as of this encounter
--- OUTSIDE RECORDS SUMMARY | 2024-03-03 11:43 | XMS_ITS | Encounter Summary ---
Author Organization [facility] Healthcare Address [address] [place] [address] Care Team Providers Care Walking Dragline Operator Name Role Phone Unknown, Notinfile Primary Care Provider Unavail able Jaylon Gudino MD Unavailable [phone] Reason for Visit * Reason Comments OT Treatment * Consultation (Routine) - Closed Specialty Diagnoses / Procedures Referred By Contact Referred To Contact Occupational Therapy Diagnoses Hand injury, left, initial encounter DyRy MD [address] [place] [address] Phone: tel: fax: [facility] Occupational Therapy [address] [place] [address] [place] [address] Phone: tel: fax: Referral ID Status Reason Start Date Expiration Date V isits Requested Visits Authorized [id number] Closed Evaluate and Treat 07/24/2022 08/23/2023 20 20 Encounter Details Date Type Department Care Team (Late st Contact Info) Description 09/23/2022 10:45 AM CDT Therapy [facility] Occupational Therapy [address] [place] [address] Karen Elias, OT [address] [place] [address] Injury of left hand, subsequent encounter (Primary [...] on file 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 He states his IF is feeling better. He continues to have soreness on the side. (8 weeks, 6 days post op) Objective: No objective measurements were taken this date. Treatment Provided: MHP x's 10 minutes to increase tissue extensibility Therapist completed PROM for composite flexion x's 10 reps Patient completed AROM for composite flexion and extension x's 10 reps Therapist completed aggressive scar massage Issued mini roller massager Snake bite extractor for scar management Patient completed hand health information management director with yellow band x's 10 reps Issued foam cylindrical foam tubing for gripping and digit motion Red clothes pin and small cube activity (stacking 3 high) for increased director talent management Assessment: Patient continues to present with increased swelling of left digits and distal palm, although it has improved. His IF tip is healing well with no signs of infection. He has no pain this date. He continues to have decreased ROM of left digits and wrist. He tolerated all therapy exercises well. He ismaking good progress with his ROM. He verbalized understanding of continuation of HEP and protocol.He would benefit from continued OT services. ST) [...] 10:45 AM End Time: 11:30 AM Karen Elias, DIANNR/L documented in this encounter Plan of Treatment Not on file documented as of this encounter Visit Diagnoses Diagnosis Injury of left hand, subsequent encounter- Primary documented in this encounter Care Teams Walking Dragline Operator Relationship Specialty Start Date End Date Unknown, Notinfile PCP - General 07/23/22 10/23/22 Jaylon Gudino MD [address] [place] [address] 07/23/22 documented as of this encounter
--- OUTSIDE RECORDS SUMMARY | 2024-03-03 11:43 | XMS_ITS | Encounter Summary ---
Author Organization [facility] Healthcare Address [address] [place] [address] Care Team Providers Care Kick Press Operator Name Role Phone Unknown, Notinfile Primary Care Provider Unavail able Jaylon Gudino MD Unavailable [phone] Reason for Visit * Reason Comments OT Treatment * Consultation (Routine) - Closed Specialty Diagnoses / Procedures Referred By Contact Referred To Contact Occupational Therapy Diagnoses Hand injury, left, initial encounter DyRy MD [address] [place] [address] Phone: tel: fax: [facility] Occupational Therapy [address] [facility] [address]th [place] [address] [place] [address] Phone: tel: fax: Referral ID Status Reason Start Date Expiration Date V isits Requested Visits Authorized [id number] Closed Evaluate and Treat 07/24/2022 08/23/2023 20 20 Encounter Details Date Type Department Care Team (Late st Contact Info) Description 10/10/2022 10:45 AM CDT Therapy [facility] Occupational Therapy [address] [place] [address] Karen Elias, OT 1 [place] [address] Injury of left hand, subsequent encounter (Primary [...] on file 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 Objective: No objective measurements were taken this date. Treatment Provided: MHP x's 10 minutes to increase tissue extensibility Patient completed AROM for composite flexion and extension x's 10 reps Therapist completed aggressive scar massage EDC glides using medium highway engineering technician x's [address] [place] [place] theraputty and marble activity x's 10 marbles (with increased time) Data Entry Assistant and pull exercise using pink theraputty and 3 minutes Patient rolled hand on green therbar for scar management x's 3 minutes Green therbar bends x's 30 bends Green therbar bends at table top holding with left hand bending in 4 directions x's 3 minutes Assessment: Patient continues to present with increased swelling of left digits and distal palm, although it has improved. His IF tip is healing well with no signs of infection. He has mild pain this date. He continues to have excess scar tissue. He continues to have decreased ROM of left digits and wrist as well as decreased strength of left hand. He tolerated all therapy exercises well including strengthening which was increased. He is making good progress with his [...] AROM composite fist by 6 weeks (09/19/22) 3) 10/07/22 Patient to increase left fruit picker strength to 34 lbs 3 weeks (10/31/22) 4) 10/07/22 Patient to be able to squeeze brake handle on bike while riding with no difficulty by 3weeks (10/31/22) 5) 10/10/22 Patient to increase left fruit picker strength to 35 lbs by 3 weeks (10/31/22) Plan: Patient to return to therapy to continue plan of care. Start Time: 10:50 AM End Time: 11:50 AM Karen Elias OTR/L documented in this encounter Plan of Treatment Not on file documented as of this encounter Visit Diagnoses Diagnosis Injury of left hand, subsequent encounter- Primary documented in this encounter Care Teams Kick Press Operator Relationship Specialty Start Date End Date Unknown, Notinfile PCP - General 07/23/22 10/23/22 Jaylon Gudino MD [address] [place] [address] 07/23/22 documented as of this encounter
--- OUTSIDE RECORDS SUMMARY | 2024-03-03 11:43 | XMS_ITS | Encounter Summary ---
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 LEFT Z-PLASTY Referral ID Status Reason Start Date Expiration Date Visits Re quested Visits Authorized [id number] 1 1 Encounter Details Date Type Department Care Team (Late st Contact Info) Description 11/04/2022 3:17 PM CDT - 11/04/2022 4:00 PM CDT Surgery [facility] Surgery at [facility] [address] [place] [address] Ry York MD [address] [facility] [address] [place] [address] LEFT THIRD WEBSPACE CONTRACTURE RELEASE, Z-PLASTY. Surgery Details Date/Time Status Location OR Service Patient Class Case Class Case Type Trauma Case? 11/04/2022 3:17 PM Posted [facility] Operating Room HI OR 2 Orthopaedics Outpatient Elective Panel 1 Procedure LRB Anes Op Region Wound Class Comments LEFT THIRD WEBSPACE CONTRACTURE RELEASE, Z-PLASTY. 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 A [...] During business hours (Mon-Fri 8am-4:30pm) Dr. York's Stylist Apprentice: JOSEF FELIPE phone: [phone] After hours/weekend (Emergencies Only; no medication refills) [facility] Orthopedics Medical Exchange: [phone] or toll-free * Attachments The following attachments cannot be sent through Care Everywhere. * [facility] TO EXCELLENT CARE AFTER SURGERY documented [...] RELEASE, Z-PLASTY. LEFT Z-PLASTY Source Note - Ry York MD - 10/16/2022 3:00 PM CDT RETURN [...] finger on the ulnar side. Says he can feel light touch on the ulnar side but not on the radial side. Sensation is absent to light touch onthe ring finger pulp, present for the middle [...] mac plus local anesthesia. Ry York M.D. Automobile Upholsterer Hand and Upper Extremity [facility]oped[facility] Dr. York is dictating using speech recognition software. Family Coach variances may occur. documented in this encounter [...] OPERATIVE REPORT SURGEON Ry York MD, MPH DAIRY FEED SALES CONSULTANT Liam Mann MD PREOPERATIVE and POSTOPERATIVE DIAGNOSES [...] and inflated the tourniquet.We injected 1% lidocaine [id number] with epinephrine,. We addressed the 3rd webspace [...] remove nail coverings, artificial nails and nail singaporean prior to the day of surgery. You should leave your valuables and any jewelry at home. No metal or piercings are allowed in the operating room. You should bring your insurance card, a photo ID (example: Pan Greaser's License) and a method of payment for [...] Remove nail coverings, artificial nails and nail singaporean. The Morning of Surgery: Take a shower [...] questions, please call the CPAP Staff at [phone], Thursday-Thursday 8am-4:30pm. All patients should read the below section: COVID 19 Updates & Visitor Policy: Please access [email or web address] for the most updated information. Information on [facility] & the Orthopedic Center: Please view [email or web address] (Patient & Visitor Information) for additional details regarding Advanced Directive forms, AWARE, directions, parking information, lodging, Internet access, dining and more. Information on [facility] or [facility] ([facility]): Please view [email or web address] (Patient and Visitor Information) for parking/directions and more. For MyChart information, to activate account or password recovery, please go to [email or web address] or call [phone] (toll-free: [phone]). Information for Suicide Prevention: National Suicide Prevention Lifeline (8-990- 519-ERDK (2845)). Surgery Times: For patients having surgery @ [facility] or [facility] ([facility]), if your surgeon's office has not notified you of your surgery time by NOON THE BUSINESS DAY BEFORE your surgery, please call [phone] and ask for your surgeon's office. documented [...] Primary Contracture of muscle of left hand Contracture [...] Given 11/04/2022 2:38 PM CDT 1,000 mg BUPivacaine (MARCAINE) 0.5 % (5 mg/mL) preservative free injection As needed, Starting on Thu11/04/22 at 1541, Intra-Op Given 11/04/2022 3:41 PM CDT 10 mL Carrier Fluids for Secondary Infusion - 0.9% [...] 2:35 PM CDT 30 mL/hr 30 mL/hr lidocaine-EPINEPHrine (XYLOCAINE with EPI) 1 %-1:100,000 injection As needed, Starting on Thu11/04/22 at 1541, Intra-Op, Indications: Administration of Local AnesthesiaIndications:Administra tion of Local Anesthesia Given 11/04/2022 3:41 PM CDT 3.5 mL sodium chloride 0.9% flush 0.5-20 mL 0.5-20 mL, intra-catheter, As needed, line care, Starting on Thu11/04/22 at 1349, Pre-Op, Flush volume based on line type and size. Flush before and after each use. sodium chloride 0.9% irrigation As needed, Starting on Thu11/04/22 at 1541, Intra-Op Given 11/04/2022 3:41 PM CDT 1,000 mL Surgical Site sterile water irrigation As needed, Starting on Thu11/04/22 at 1532, Intra-Op Given 11/04/2022 3:32 PM CDT 1,000 mL Other (Comment) documented in this encounter Discontinued Medications Medication [...] HYDROmorphone (DILAUDID) injection 0.4 mg 1 11/04/2022 naloxone (NARCAN) 0.4 mg/mL injection 0.04-0.4 mg 1 11/04/2022 ondansetron (ZOFRAN) injection 4 mg 1 11/04 oxyCODONE (ROXICODONE) tablet 5 mg 1 2022 sodium chloride 0.9% flush 0.5-20 mL 1 06/2022 Discharge Count Last Ordered Date First Orde red Date DISCHARGE PATIENT 1 11/07/2022 documented in this encounter Care Teams Police Matron Relationship Specialty Start Date End Date Jaylon Gudino MD [address] [place] [address] PCP - General Internal Medicine 10/24/22 Jaylon Gudino MD [address] [place] [address] 07/23/22 documented as of this encounter
--- OUTSIDE RECORDS SUMMARY | 2024-03-03 11:43 | XMS_ITS | Encounter Summary ---
Author Organization [facility] Address [address] [place] [address] Phone Care Team Providers Care Receptionist/Telephone Operator Name Role Phone Unknown, Notinfile Primary Care Provider Unavail able Jaylon Gudino MD Unavailable [phone] Reason for Visit * Reason Comments EMG LUE W/ US * Neurology (Routine) - Closed Specialty Diagnoses / Procedures Referred By Lilly kraft Referred To Contact Diagnoses Hand laceration involving tendon, left, initial encounter Traumatic injury of digital nerve of left little finger Procedures EMG/NCV WITH ULTRASOUND -Please select the performing region: [facility] (All Locations); Procedure performed at: [facility] Ortho Physiatry DyRy MD [address] [facility] [address] [place] [address] Phone: tel: fax: [facility] (All Locations) Referral ID Status Reason Start Date Expiration Date Visits Re quested Visits Authorized [id number] Closed 08/11/2022 09/10/2023 1 1 Encounter Details Date Type Department Care Team (Late st Contact Info) Description 10/16/2022 1:30 PM CDT Diagnostic [facility] Orthopaedic Surgery [facility] 6th [place] [address] [place] [address] Shay Rosa MD [address] [facility] [address] [place] [address] Hand laceration involving tendon, left, initial encounter (Primary Dx); Hand laceration involving tendon, subsequent encounter; Traumatic injury of digital nerve of left little finger Social History Tobacco Use Types Packs/Day [...] on file 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 [facility] Orthopedics [facility] [address] [address] Test Date: 10/16/2022 Patient: Bacilio Ramirez : 1945 Physician: Shay Rosa MD Sex: Male Height: 5' 10 Ref Phys: Ry York MD ID#: [id number] Weight: 185 lbs. Food Service Worker: Patient Complaints: Patient is a very pleasant 77-year-old who presents today for electrodiagnostic evaluation of left ulnar digital nerve injury involving the hand from a table saw injury status post digital nerve allograft to the middle finger radial and ulnar digital nerve, the ring finger ulnar digital nerve, and the small finger radial and ulnar digital nerve on 07/23/2022. He also experienced zone 2 FDP injuryto the middle finger as a result. Query ulnar neuropathy, Neurpative study protocol. NCS Findings: Evaluation of the left Ulnar (to the ADM) motor and the right Ulnar (to the ADM) motor nerves showed normal distal onset latency (L2.7, R2.7 ms), borderline amplitude (L5.6, R6.8 mV), normal conduction velocity (B Elbow-Wrist, L55, R59 m/s), and normal conduction velocity (A Elbow-B Elbow, L48, R45m/s). The left Ulnar (to the 5th Digit) sensory nerve showed no response (Wrist). The left Median (to the APB) motor and the right Ulnar (to the 5th Digit) sensory nerves were unremarkable. All left vs. right side differences were within normal limits. EMG Findings: Needle evaluation of the left first dorsal interosseous muscle was unremarkable. Impression: Abnormal study There is electrodiagnostic evidence of very left distal ulnar neuropathy, involving the ulnar digital nerves to the small finger, which is consistent with the patient's known saw injury to the hand. Ulnar motor function as tested by motor conduction study and EMG to the FDI were both normal. There is no electrodiagnostic evidence of left median neuropathy. There is no electrodiagnostic evidence of contralateral right ulnar neuropathy. There is borderlineslowing across the elbow which is likely subclinical. The above results were discussed in detail with the patient. He will follow up with his referring provider for next steps in management. Shay Rosa MD Nerve Conduction Studies Anti Sensory Summary Table Stim Site NR Peak (ms) Norm Peak (ms) P-T Amp (??V) Norm P-T Amp Site1 Site2 Delta-P (ms) Dist (cm)Pascual (m/s) Norm Pascual (m/s) Left Ulnar (to the 5th Digit) Anti Sensory (5th Digit) Wrist NR <4.0 >13.0 Wrist 5th Digit 14.0 Right Ulnar (to the 5th Digit) Anti Sensory (5th Digit) Wrist 3.1 <4.0 14.4 >13.0 Wrist 5th Digit 3.1 14.0 45 Motor Summary Table Stim Site NR Onset (ms) Norm Onset (ms) O-P Amp (mV) Norm O-P Amp Site1 Site2 Delta-0 (ms) Dist (cm) Pascual (m/s) Norm Pascual (m/s) Left Median (to the APB) Motor (Abd Poll Brev) Wrist 3.9 <4.5 4.3 >4.1 Wrist Abd Poll Brev 3.9 8.0 21 Elbow 8.4 3.7 Elbow Wrist 4.5 25.0 56 >49 Left Ulnar (to the ADM) Motor (Abd Dig Minimi) Wrist 2.7 <3.7 5.6 >7.9 Wrist Abd Dig Minimi 2.7 8.0 30 B Elbow 6.8 4.4 B Elbow Wrist 4.1 22.5 55 >52 A Elbow 8.9 4.1 A Elbow B Elbow 2.1 10.0 48 >43 Right Ulnar (to the ADM) Motor (Abd Dig Minimi) Wrist 2.7 <3.7 6.8 >7.9 Wrist Abd Dig Minimi 2.7 8.0 30 B Elbow 6.6 6.2 B Elbow Wrist 3.9 23.0 59 >52 A Elbow 8.8 6.4 A Elbow B Elbow 2.2 10.0 45 >43 EMG Side Muscle Nerve Root Ins Act Fibs Psw Amp Dur Poly Recrt Int Pat Comment Left 1stDorInt Ulnar C8-T1 Nml Nml Nml Nml Nml 0 Nml Nml Nerve Conduction Studies Anti Sensory Left/Right Comparison Stim Site L Lat (ms) R Lat (ms) L-R Lat (ms) L Amp (??V) R Amp (??V) L-R Amp (%) Site1 Site2 L Pascual (m/s) R Pascual (m/s) L-R Pascual (m/s) Ulnar (to the 5th Digit) Anti Sensory (5th Digit) Wrist 3.1 14.4 Wrist 5th Digit 45 Motor Left/Right Comparison Stim Site L Lat (ms) R Lat (ms) L-R Lat (ms) L Amp (mV) R Amp (mV) L-R Amp (%) Site1 Site2 L Pascual (m/s) R Pascual (m/s) L-R Pascual (m/s) Median (to the APB) Motor (Abd Poll Brev) Wrist 3.9 4.3 Wrist Abd Poll Brev 21 Elbow 8.4 3.7 Elbow Wrist 56 Ulnar (to the ADM) Motor (Abd Dig Minimi) Wrist 2.7 2.7 0.0 5.6 6.8 17.6 Wrist Abd Dig Minimi 30 30 0 B Elbow 6.8 6.6 0.2 4.4 6.2 29.0 B Elbow Wrist 55 59 4 A Elbow 8.9 8.8 0.1 4.1 6.4 35.9 A Elbow B Elbow 48 45 3 Waveforms: documented in this encounter Plan of Treatment Not on file documented as of this encounter Visit Diagnoses Diagnosis Hand laceration involving tendon, left, initial encounter- Primary Hand laceration involving tendon, subsequent encounter Traumatic injury of digital nerve of left little finger documented in this encounter Orders Imaging Orders Without Results Count Last Order ed Date First Ordered Date ORT EMG/NCV WITH ULTRASOUND 1 10/16/2022 documented in this encounter Care Teams Receptionist/Telephone Operator Relationship Specialty Start Date End Date Unknown, Notinfile PCP - General 07/23/22 10/23/22 Jaylon Gudino MD [address] [place] [address] 07/23/22 documented as of this encounter
--- OUTSIDE RECORDS SUMMARY | 2024-03-03 11:43 | XMS_ITS | Encounter Summary ---
Author Organization [facility] Address [address] [place] [address] Phone Care Team Providers Care Community Center Coordinator Name Role Phone Jaylon Gudino MD Unavailable [phone] Jaylon Gudino MD Primary Care Provider [phone] Reason for Visit * Reason Comments Post-op Encounter Details Date Type Department Care Team (Late st Contact Info) Description 11/20/2022 1:10 PM CDT Office Visit [facility] Orthopaedic Surgery [address] [facility] 6th [place] [address] [place] [address] Ry York MD [address] [place] [address] Contracture from scar that is not a burn scar of hand web space (Primary Dx) Social History Tobacco Use Types [...] on file 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 Feeling well. No complaints. Working on therapy with Karen. PHYSICAL EXAMINATION Wounds are healing well, absorbable sutures trimmed. No signs of infection. No warmth or drainage. DPC 2 cm. Third webspace maintain, full finger extension. REVIEW OF X-RAYS/STUDIES None today IMPRESSION/DIAGNOSIS/PLAN Progressing as expected. He will finish his current therapy session, we discussed importance of massage and maintenance of his webspace. Follow-up in 3 months for repeat clinical assessment. Ry York M.D. Shop Worker Hand and Upper Extremity [facility] Orthopedics Dr. York is dictating using speech recognition software. Special Diet Cook variances may occur. documented in this encounter Plan of Treatment Not on file documented as of this encounter Visit Diagnoses Diagnosis Contracture from scar that is not a burn scar of hand web space- Primary documented in this encounter Care Teams Community Center Coordinator Relationship Specialty Start Date End Date Jaylon Gudino MD [address] [place] [address] PCP - General Internal Medicine 10/24/22 Jaylon Gudino MD [address] [place] [address] 07/23/22 documented as of this encounter
--- OUTSIDE RECORDS SUMMARY | 2024-03-03 11:43 | XMS_ITS | Encounter Summary ---
Author Organization [facility] Address [address] [place] [address] Care Team Providers Care Network Consultant Name Role Phone Unknown, Notinfile Primary Care Provider Unavail able Jaylon Gudino MD Unavailable [phone] Reason for Visit * Reason Comments OT Treatment * Consultation (Routine) - Closed Specialty Diagnoses / Procedures Referred By Contact Referred To Contact Occupational Therapy Diagnoses Hand injury, left, initial encounter DyRy MD [address] [facility] [address] [place] [address] Phone: tel: fax: [facility] Occupational Therapy [address] [facility] [address]th [place] [address] [place] [address] Phone: tel: fax: Referral ID Status Reason Start Date Expiration Date V isits Requested Visits Authorized [id number] Closed Evaluate and Treat 07/24/2022 08/23/2023 20 20 Encounter Details Date Type Department Care Team (Late st Contact Info) Description 10/07/2022 10:45 AM CDT Therapy [facility] Occupational Therapy [address] [place] [address] Karen Elias, OT [address] [place] [address] Injury of left hand, subsequent encounter (Primary [...] on file 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 It continues to be stiff. (11 weeks, 6 days post op) Objective: STRENGTH Designer Architect Pinch Right Left Right Left Trial 1 66 25 Lateral Trial 2 74 24 Tip to Tip Trial 3 65 24 3- Point Average 68.3 24.3 Left flexion to DPC: 1.8 / 0.0 / 0.0 / 0.0 (Passive) Left flexion to DPC: 3.6 / 2.4 / 0.7 / 1.4 (Active) Treatment Provided: MHP x's 10 minutes to increase tissue extensibility Patient completed AROM for composite flexion and extension x's 10 reps Therapist completed aggressive scar massage Yellow theraputty and marble activity x's 10 marbles (with increased time) Designer Architect and pull exercise using yellow theraputty and 3 minutes Red therbar bends at table top holding with left hand bending in 4 directions x's 3 minutes Patient rolled hand on red therbar for scar management x's 3 minutes Assessment: Patient continues to present with increased swelling of left digits and distal palm, although it has improved. His IF tip is healing well with no signs of infection. He has mild pain this date. He continues to excess scar tissue. He continues to have decreased ROM of left digits and wrist. He tolerated all therapy exercises well including strengthening. He is making good progress with his ROM. Heverbalized understanding of continuation of HEP and protocol. [...] (09/19/22) 3) 10/07/22 Patient to increase left babcock tester strength to 34 lbs 3 weeks (10/31/22) 4) 10/07/22 Patient to be able to squeeze Plan: Patient to return to therapy to continue plan of care. Start Time: 10:50 AM End Time: 11:50 AM Karen Elias OTR/L documented in this encounter Plan of Treatment Not on file documented as of this encounter Visit Diagnoses Diagnosis Injury of left hand, subsequent encounter- Primary documented in this encounter Care Teams Network Consultant Relationship Specialty Start Date End Date Unknown, Notinfile PCP - General 07/23/22 10/23/22 Jaylon Gudino MD [address] [place] [address] 07/23/22 documented as of this encounter
--- OUTSIDE RECORDS SUMMARY | 2024-03-03 11:43 | XMS_ITS | Encounter Summary ---
Author Organization [facility] Address [address] [place] [address] Phone Care Team Providers Care Account Director Name Role Phone Unknown, Notinfile Primary Care Provider Unavail able Jaylon Gudino MD Unavailable [phone] Reason for Visit * Reason Comments Follow-up Encounter Details Date Type Department Care Team (Late st Contact Info) Description 10/16/2022 3:00 PM CDT Office Visit [facility] Orthopaedic Surgery [address] [facility] [address] 6th [place] [address] [place] [address] Ry York MD [address] 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 Ry York M.D. Drywall Installer Hand and Upper Extremity [facility] Dr. York is dictating using speech recognition software. Nurse Ob variances may occur. 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
--- OUTSIDE RECORDS SUMMARY | 2024-03-03 11:43 | XMS_ITS | Encounter Summary ---
Author Organization [facility] Healthcare Address [address] [place] [address] Care Team Providers Care Physician Coding Specialist Name Role Phone Unknown, Notinfile Primary Care Provider Unavail able Jaylon Gudino MD Unavailable Reason for Visit * Reason Comments OT Treatment * Consultation (Routine) - Closed Specialty Diagnoses / Procedures Referred By Contact Referred To Contact Occupational Therapy Diagnoses Hand injury, left, initial encounter DyRy MD [address] [facility] [address] [place] [address] Phone: tel: fax: [facility] Occupational Therapy [address] [facility] 6th [place] [address] [place] [address] Phone: tel: fax: Referral ID Status Reason Start Date Expiration Date V isits Requested Visits Authorized [id number] Closed Evaluate and Treat 07/24/2022 08/23/2023 20 20 Encounter Details Date Type Department Care Team (Late st Contact Info) Description 10/14/2022 10:00 AM CDT Therapy [facility] Occupational Therapy [address] [place] [address] Karen Elias, OT [address] [place] [address] Injury of left hand, subsequent encounter (Primary [...] on file 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 He is still having tenderness in his left hand. Objective: STRENGTH [employer] Pinch Right Left Right Left Trial 1 34 Lateral Trial 2 34 Tip to Tip Trial 3 33 3- Point Average 24.3 Left flexion to DPC: 1.3 / 0.0 / 0.0 / 0.0 (Passive) Left flexion to DPC: 2.7 / 1.8 / 0.7 / 1.2 (Active) Treatment Provided: MHP x's 10 minutes to increase tissue extensibility. Patient completed AROM for composite flexion and extension x's 10 reps Therapist completed aggressive scar massage Runge theraputty and marble activity x's 10 marbles (with increased time) [employer] and pull exercise using pink theraputty and 3 minutes Power gripper exercise at 25 lbs (black spring) x's 25 large pegs x's 2 sets Small wrist pipe supervisor with 1 lb dumbbell x's 3 reps Assessment: Patient continues to present with increased swelling of left digits and distal palm, although it isimproving. His IF tip is healing well with no signs of infection. He has no pain at rest this date.He continues to have excess scar tissue. He continues to have decreased ROM of left digits and wrist as well as decreased strength of left hand. However, his motion and strength are improving. He tolerated all therapy exercises well including [...] (09/19/22) 3) 10/07/22 Patient to increase left fire prevention captain strength to 34 lbs 3 weeks (10/31/22) 4) 10/07/22 Patient to be able to squeeze brake handle on bike while riding with no difficulty by 3weeks (10/31/22) 5) 10/10/22 Patient to increase left fire prevention captain strength to 35 lbs by 3 weeks (10/31/22) Plan: Patient to return to MD. Will await new orders if patient is to continue skilled OT. Start Time: 9:55 AM End Time: 10:55 AM Karen Elias OTR/L documented in this encounter Plan of Treatment Not on file documented as of this encounter Visit Diagnoses Diagnosis Injury of left hand, subsequent encounter- Primary documented in this encounter Care Teams Physician Coding Specialist Relationship Specialty Start Date End Date Unknown, Notinfile PCP - General 07/23/22 10/23/22 Jaylon Gudino MD [address] [place] [address] 07/23/22 documented as of this encounter
--- OUTSIDE RECORDS SUMMARY | 2024-03-03 11:43 | XMS_ITS | Encounter Summary ---
Author Organization [facility] Healthcare Address [address] [place] [address] Care Team Providers Care Carpenter Name Role Phone Jaylon Gudino MD Unavailable [phone] Jaylon Gudino MD Primary Care Provider [phone] Reason for Visit * Reason Comments OT Initial Eval * Consultation (Routine) - Closed Specialty Diagnoses / Procedures Referred By Lilly t Referred To Contact Occupational Therapy Diagnoses Contracture of muscle of left hand Ry York MD [address] [facility] [address] [place] [address] Phone: tel: fax: [address] [address] Referral ID Status Reason Start Date Expiration Date V isits Requested Visits Authorized [id number] Closed Specialty Services Required 11/07/2022 12/07/2023 20 20 Encounter Details Date Type Department Care Team (Late st Contact Info) Description 11/13/2022 1:45 PM CDT Therapy [facility] Occupational Therapy [address] [place] [id number] Karen Elias OT [address] [place] [id number] Injury of left hand, subsequent encounter (Primary [...] on file 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 male Referring Provider: Ry York MD [address] [facility] [address] [place] [address] Contracture of muscle of left hand Subjective: Patient reports: Patient arrived to therapy with his post op dressing on. He states his hand has been feeling good since his procedure. Patient was able to ride his bike up to 12 miles prior to second surgery. Patient's primary goal: To ride bike for 30 miles Diagnosis: 1. 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 Left palm/middle finger scar contracture. Date of onset: 07/23/33 Cause of injury: Patient was using a skill saw when he was cutting a shelf when it collapsed and hecut his left hand. Date of surgery: 07/23/22 and 11/04/22 Surgery details: 07/23/22 1.Left hand exploration 2.Left hand irrigation and excisional debridement 3.Repair of middle finger radial digital nerve with allograft 4.Repair of middle finger ulnar digital nerve with allograft 5.Repair of middle finger ulnar digital artery, primary repair 6.Repair of middle finger flexor digitorum profundus tendon in zone 2 7.Repair of ring finger ulnar digital nerve with allograft 8.Repair of small finger radial digital nerve with allograft 9.Repair of small finger ulnar digital nerve according to Neuraptive randomization 10.Placement of Integra graft for coverage of left index finger soft tissue injury measuring 4 cm x2 cm 11.Use of floor mounted operating room microscope 11/04/22 1. Left 3rd webspace deepening with Z-plasty. 2. Left palm/middle finger Z-plasty Next MD Appointment: No past medical history on file. 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 Patient enjoys bike marathons and working in his shop (working on furniture or building different things,), also enjoys helping people with projects. Work status: Retired, patient still does side work. He is not currently doing side work at this time. Do you feel safe in your home environment?: [x] Yes [] No Hand dominance [x] Right [] Left [] Ambidextrous Involved side [] Right [x] Left [] Bilateral Numbness [x] Yes [] No Location: Left SF, Radial RF, and tip of IF Tingling [x] Yes [] No Location: Left SF Pain at best: 0/10 Pain at worst: 0/10 Location: 0/10 Are you taking pain medication? [] Yes [...] sleep to support daily routines Details: Objective: 11/13/2022 QUICK DASH Open a tight or new jar 2 - Mild Difficulty Do heavy fly finisher (e.g., wash del angel, floors) 1 - No Difficulty Carry a shopping bag or briefcase 1 - No Difficulty Wash your back 1 - No Difficulty Use a knife to cut food 2 - Mild Difficulty Recreational activities in which you take some force or impact through your arm, shoulder, or hand (e.g., golf, hammering, tennis, etc.) 5 - Unable During the past week, to what extent has your arm, shoulder, or hand problem interfered with your normal social activities with family, friends, neighbours or groups? 1 - Not at All During the past week, were you limited in your work or other regular daily activities as a result of your arm, shoulder or hand problem? 3 - Moderately Limited Arm, shoulder or hand pain 1 - None Tingling (pins and needles) in your arm, shoulder or hand 2 - Mild During the past week, how much difficulty have you had sleeping because of the pain in your arm, shoulder or hand? 1 - No Difficulty Quick DASH Disability/Symptom Score: 20.45 Wound/appearance: Incisions are healing well with no signs of infection Active Wrist and Forearm Range of Motion Right Left Extension/ Flexion Extension/ Flexion 59/48 Radial/Ulnar Deviation Radial/Ulnar Deviation 20/20 Supination/ Pronation Supination/ Pronation 70/75 Left flexion to DPC: 3.5 / 3.6 / 2.0 / 2.5 Treatment Provided: Therapist removed post op dressing Placed adaptic and anny wrap gauze over incisions. Educated patient on tendon glides (table top, hook fist, straight fist, composite flexion/extension) - issued for HEP EDC glides using piece of brown foam x's 20 reps Ball exercises for WE/WF and forearm supination/pronation x's 3 minutes Small cube activity for increased digit flexion (SF and IF) Assessment: Pt demonstrated independence/verbalized understanding in: [x] HEP [] Don/doff orthosis [x] All tx listed above Assessment details: Patient presents with decreased ROM of left wrist and digits. His incision is healing well with no signs of infection. He has no pain this date. He tolerated all ROM activities. He verbalized understanding of HEP. He would benefit from continued OT services. Impairment list: [x] Coordination [x] Edema [x] Endurance/activity tolerance [x] Fine motor use [] Flexibility [] Gross motor use [] Muscle tone [x] Pain [x] Range of motion [x] Scar tissue [x] Sensation [] Sensory/motor [] Skin integrity [x] Strength Functional Limitations: [x] ADLs [] Community activities [] Communication [] Education [x] Home management [x] Leisure activities [] Play [] Safety [] Sports [] Work Environmental Barriers: None [] Home [] Work [] Community Barriers to Therapy: None Intervention Approach: [] Health promotion [x] Remediation [x] Wellness [] Adaptation [] Prevention Prognosis: [] Excellent [x] Good [] Fair [] Poor ST) 11/13/22 Patient to increase left WE [...] to no difficulty by 6 weeks (12/25/22) Will add digit extension goals and strengthening. Plan: Frequency/Duration: 20 visits (2-3 x's week x's 6 weeks 11/13/22 - 02/05/23) Plan Details: Next visit measure digit extension. Patient to return to therapy for ROM (AROM/PROM, scar management, edema management, modalities, orthosis fabrication/modification, functional activities, and strengthening. Will fabricate a silicone mold for scar management we sutures are removed and incision is healed. Start time: 1:50 PM End time: 2:45 PM Karen Elias OTR/L documented in this encounter Plan of Treatment Scheduled Referrals Name Type Priority Associated Diagnoses Order Schedule Ambulatory referral order to Occupational Therapy - Outpatient Referral Routine Contracture of muscle of left hand Ordered: 11/07/2022 documented as of this encounter Visit Diagnoses Diagnosis Injury of left hand, subsequent encounter- Primary documented in this encounter Care Teams Carpenter Relationship Specialty Start Date End Date Jaylon Gudino MD [address] [place] [address] PCP - General Internal Medicine 10/24/22 Jaylon Gudino MD [address] [place] [address] 07/23/22 documented as of this encounter
--- OUTSIDE RECORDS SUMMARY | 2024-03-03 11:43 | XMS_ITS | Encounter Summary ---
Author Organization [facility] Address [address] [place] [address] Phone Care Team Providers Care Operations Systems Specialist Name Role Phone Unknown, Notinfile Primary Care Provider Unavail able Jaylon Gudino MD Unavailable Encounter Details Date Type Department Care Team (Late st Contact Info) Description 10/22/2022 Telephone [facility] Orthopaedic Surgery [address] 1st [address] [place] [address] Ry York MD [address] [facility] [address] [place] [address] Social History Tobacco Use Types Packs/Day Years Used Date Smoking Tobacco: Former Cigarettes Q uit: 1989 Smokeless Tobacco: Never AUDIT-C Answer Date Recorded Frequency of Alcohol Consumption Not on file 10/21/2022 Q2: How many drinks containi ng alcohol do you have on a typical day when you are drinking? 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 ----- Message from Silva Fong NP sent at 10/21/2022 4:38 PM CDT ----- Regarding: TPAP message- Dy Good afternoon, the patient is on aspirin therapy for primary prevention. The patient's perioperative cardiovascular risk is deemed low or is outweighed by bleeding risk. If time permits, we support stopping aspirin 7 or more days prior to the procedure. Please call the CPAP chart room clinician ([phone]) with any questions. Thanks, MALLIKA MorganC >NOTE: There is no need to reply to this message but if you would like to send a non-urgent reply, please address it to the [facility] staff message POOL address [facility] CPAP CLIENT ENGAGEMENT MANAGER (number [phone]). Please note that messages to this address will be replied to within approximately 1 business day. If you have an urgent reply, please call the CPAP at [phone]. documented in this encounter Plan of Treatment Not on file documented as of this encounter Visit Diagnoses Not on filedocumented in this encounter Care Teams Operations Systems Specialist Relationship Specialty Start Date End Date Unknown, Notinfile PCP - General 07/23/22 10/23/22 Jaylon Gudino MD [address] [place] [address] 07/23/22 documented as of this encounter
--- OUTSIDE RECORDS SUMMARY | 2024-03-03 11:43 | XMS_ITS | Encounter Summary ---
Author Organization [facility] Healthcare Address [address] [place] [address] Care Team Providers Care Heat Welder Plastics Name Role Phone Unknown, Notinfile Primary Care Provider Unavail able Jaylon Gudino MD Unavailable [phone] Reason for Visit * Reason Comments OT Treatment * Consultation (Routine) - Closed Specialty Diagnoses / Procedures Referred By Contact Referred To Contact Occupational Therapy Diagnoses Hand injury, left, initial encounter DyRy MD [address] [facility] [address] [place] [address] Phone: tel: fax: [facility] Occupational Therapy [address] [facility] 6th [place] [address] [place] [address] Phone: tel: fax: Referral ID Status Reason Start Date Expiration Date V isits Requested Visits Authorized [id number] Closed Evaluate and Treat 07/24/2022 08/23/2023 20 20 Encounter Details Date Type Department Care Team (Late st Contact Info) Description 09/26/2022 10:45 AM CDT Therapy [facility] Occupational Therapy [address] [place] [address] Karen Elias, OT 1 [place] [address] Injury of left hand, subsequent encounter (Primary [...] on file 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 Objective: No objective measurements were taken this date. Treatment Provided: MHP x's 10 minutes to increase tissue extensibility Therapist completed PROM for composite flexion x's 10 reps Patient completed AROM for composite flexion and extension x's 10 reps Therapist completed aggressive scar massage Issued dycem to assist with scar massage Patient rolled palm on green therbar for scar management Gripped yellow theraputty x's 3 minutes Educated patient on desensitization Bead transfer activity between containers for increased digit flexion x's 3 minutes Assessment: Patient continues to present with increased swelling of left digits and distal palm, although it has improved. His IF tip is healing well with no signs of infection. He has no pain this date. He continues to excess [...] by 6 weeks (09/19/22) Plan: Patient to increase tissue extensibility Start Time: 10:45 AM End Time: 11:30 AM Karen Elias OTR/L documented in this encounter Plan of Treatment Not on file documented as of this encounter Visit Diagnoses Diagnosis Injury of left hand, subsequent encounter- Primary documented in this encounter Care Teams Heat Welder Plastics Relationship Specialty Start Date End Date Unknown, Notinfile PCP - General 07/23/22 10/23/22 Jaylon Gudino MD [address] [place] [address] 07/23/22 documented as of this encounter
--- OUTSIDE RECORDS SUMMARY | 2024-03-03 11:43 | XMS_ITS | Encounter Summary ---
Author Organization [facility] Healthcare Address [address] [place] [address] Care Team Providers Care Web Content Specialist Name Role Phone Unknown, Notinfile Primary Care Provider Unavail able Jaylon Gudino MD Unavailable [phone] Reason for Visit * Reason Comments OT Treatment * Consultation (Routine) - Closed Specialty Diagnoses / Procedures Referred By Contact Referred To Contact Occupational Therapy Diagnoses Hand injury, left, initial encounter DyRy MD [address] [facility] [address] [place] [address] Phone: tel: fax: [facility] Occupational Therapy [address] 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 Objective: Left flexion to DPC: 2.9 / 2.5 / 1.6 / 1.8 (Active) Treatment Provided: Therapist completed PROM for composite flexion x's 10 reps Patient completed AROM for composite flexion and extension x's 10 reps Therapist completed aggressive scar massage Red clothes pin and small cube activity (stacking 2-3 high) [place] and bottle activity x's 2 sets Bead transfer activity for increased digit flexion x's 3 minutes Yellow theraputty and marble activity x's 10 marbles (with increased time) Real Estate Services Coordinator and pull exercise using yellow theraputty and 3 minutes Assessment: Patient continues to present [...] 10:50 AM End Time: 11:50 AM Karen Elias, DIANNR/L documented in this encounter Plan of Treatment Not on file documented as of this encounter Visit Diagnoses Diagnosis Injury of left hand, subsequent encounter- Primary documented in this encounter Care Teams Web Content Specialist Relationship Specialty Start Date End Date Unknown, Notinfile PCP - General 07/23/22 10/23/22 Jaylon Gudino MD [address] [place] [address] 07/23/22 documented as of this encounter
--- OUTSIDE RECORDS SUMMARY | 2024-03-03 11:43 | XMS_ITS | Encounter Summary ---
Author Organization [facility] Healthcare Address [address] [place] [address] Care Team Providers Care Legal Service Specialist Name Role Phone Unknown, Notinfile Primary Care Provider Unavail able Jaylon Gudino MD Unavailable Reason for Visit * Reason Comments OT Treatment * Consultation (Routine) - Closed Specialty Diagnoses / Procedures Referred By Contact Referred To Contact Occupational Therapy Diagnoses Hand injury, left, initial encounter DyRy MD [address] [place] [address] Phone: tel: fax: [facility] Occupational Therapy [address]th [place] [address] [place] [address] Phone: tel: fax: Referral ID Status Reason Start Date Expiration Date V isits Requested Visits Authorized [id number] Closed Evaluate and Treat 07/24/2022 08/23/2023 20 20 Encounter Details Date Type Department Care Team (Late st Contact Info) Description 09/30/2022 10:45 AM CDT Therapy [facility] Occupational Therapy 1 [place] [address] Karen Elias, OT 1 [place] [address] Injury of left hand, subsequent encounter (Primary [...] on file 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 Objective: No objective measurements were taken this date. Treatment Provided: MHP x's 10 minutes to increase tissue extensibility Therapist completed PROM for composite flexion x's 10 reps Patient completed AROM for composite flexion and extension x's 10 reps Therapist completed aggressive scar massage Yellow theraputty and marble activity x's 10 marbles (with increased time) Staffing Clerk and pull exercise using yellow theraputty [address] and holds for composite flexion Re-bandaged IF with adaptic and band net Assessment: Patient continues to present with increased [...] Primary documented in this encounter Care Teams Legal Service Specialist Relationship Specialty Start Date End Date Unknown, Notinfile PCP - General 07/23/22 10/23/22 Jaylon Gudino MD [address] [place] [address] 07/23/22 documented as of this encounter
--- OUTSIDE RECORDS SUMMARY | 2024-03-03 11:43 | XMS_ITS | Encounter Summary ---
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
--- OUTSIDE RECORDS SUMMARY | 2024-03-03 11:44 | XMS_ITS | Encounter Summary ---
Author Organization [facility] Healthcare Address [address] [place] [address] Care Team Providers Care Chick Sexer Name Role Phone Unknown, Notinfile Primary Care Provider Unavail able Jaylon Gudino MD Unavailable [phone] Reason for Visit * Reason Comments OT Treatment * Consultation (Routine) - Closed Specialty Diagnoses / Procedures Referred By Contact Referred To Contact Occupational Therapy Diagnoses Hand injury, left, initial encounter DyRy MD [address] [place] [address] Phone: tel: fax: [facility] Occupational Therapy [address] [facility] [address]th [place] [address] [place] [address] Phone: tel: fax: Referral ID Status Reason Start Date Expiration Date V isits Requested Visits Authorized [id number] Closed Evaluate and Treat 07/24/2022 08/23/2023 20 20 Encounter Details Date Type Department Care Team (Late st Contact Info) Description 08/26/2022 10:45 AM CDT Therapy [facility] Occupational Therapy 1 [place] [address] Karen Elias, OT 1 [place] [address] Injury of left hand, subsequent encounter (Primary [...] on file 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 Objective: No objective measurements were taken this date. Treatment Provided: Therapist completed PROM for MP flexion x's 10 reps Therapist completed PROM for PIP flexion x's 10 reps Therapist completed PROM for DIP flexion x's 10 reps Therapist completed PROM for composite flexion x's 10 reps Therapist completed debridement. Patient continues to have some sutures intact in webspace/base of digits. Therapist completed scar massage Educated patient on the importance of completing scar massage. Applied adaptic and anny wrap to cover incision site. Assessment: Patient continues to present with increased swelling of left digits. His incision and IF tip are healing well with no signs of infection. He has no pain this date. He continues to have decreased ROM of left digits. He tolerated all therapy exercises well. He verbalized understanding of continuationof HEP and protocol. He would benefit from [...] care. Start Time: 10:45 AM End Time: 11:35 AM Karen Elias OTR/L documented in this encounter Plan of Treatment Not on file documented as of this encounter Visit Diagnoses Diagnosis Injury of left hand, subsequent encounter- Primary documented in this encounter Care Teams Chick Sexer Relationship Specialty Start Date End Date Unknown, Notinfile PCP - General 07/23/22 10/23/22 Jaylon Gudino MD [address] [place] [address] 07/23/22 documented as of this encounter
--- OUTSIDE RECORDS SUMMARY | 2024-03-03 11:44 | XMS_ITS | Encounter Summary ---
Author Organization [facility] Healthcare Address [address] [place] [address] Care Team Providers Care Process Owner Name Role Phone Unknown, Notinfile Primary Care Provider Unavail able Jaylon Gudino MD Unavailable [phone] Reason for Visit * Reason Comments OT Treatment * Consultation (Routine) - Closed Specialty Diagnoses / Procedures Referred By Contact Referred To Contact Occupational Therapy Diagnoses Hand injury, left, initial encounter DyRy MD [address] [place] [address] Phone: tel: fax: [facility] Occupational Therapy [address] 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 He has been washing his hand leaving the intragraft dry. Patient states he has been using the coban for swelling but has not noticed much difference. Objective: No objective measurements were taken this date. Treatment Provided: MHP x's 10 minutes to increase tissue extensibility leaving IF out Therapist completed PROM for MP flexion x's 10 reps Therapist completed PROM for PIP flexion x's 10 reps Therapist completed PROM for DIP flexion x's 10 reps Therapist completed PROM for composite flexion x's 10 reps Patient completed AROM half fist x's 15 reps Therapist completed aggressive scar massage Educated patient on the importance of completing scar massage Debrided skin from scar. Re-bandaged hand with adaptic, band net, and anny wrap. Assessment: Patient continues to present with increased [...] therapy to continue plan of care. Will take new measurements at next visit. Start Time: 10:45 AM End Time: 11:45 AM Karen Elias, DIANNR/L documented in this encounter Plan of Treatment Not on file documented as of this encounter Visit Diagnoses Diagnosis Injury of left hand, subsequent encounter- Primary documented in this encounter Care Teams Process Owner Relationship Specialty Start Date End Date Unknown, Notinfile PCP - General 07/23/22 10/23/22 Jaylon Gudino MD [address] [place] [address] 07/23/22 documented as of this encounter
--- OUTSIDE RECORDS SUMMARY | 2024-03-03 11:44 | XMS_ITS | Encounter Summary ---
Author Organization [facility] Address [address] [place] [address] Phone Care Team Providers Care Master Chef Name Role Phone Unknown, Notinfile Primary Care Provider Unavail able Jaylon Gudino MD Unavailable [phone] Encounter Details Date Type Department Care Team (Late st Contact Info) Description 08/06/2022 9:20 AM CDT Office Visit [facility] Orthopaedic Surgery [address] [facility] 6th [place] [address] [place] [address] Ry York MD [address] [place], [place] [id number] Hand laceration involving tendon, left, initial encounter (Primary Dx) Social History Tobacco [...] on file 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 Here today for follow-up in her operative protocol. Surgery was done by Dr. Glover and Dr. Stringer. The patient has been working with Izzy Freeman for flexor tendon rehab, currently in a forearm based dorsal blocking splint. The injury occurred when he was trying to cut a shelf forward with a skill saw, and the board came down, saw injured his left hand, mainly at the palmar digital level. PHYSICAL EXAMINATION Index finger Integra coverage with appropriate appearance, no signs of dehiscence or delamination. Middle ring and small fingers are warm and well perfused. Suture line intact, sutures removed, partial superficial dehiscence at the palmar digital crease for the middle finger, Steri-Strips applied. Active D IP flexion for middle ring and small finger. No signs of infection. No warmth or drainage. No discernible sensation ulnar or radial aspects of the middle or small finger. REVIEW OF X-RAYS/STUDIES None today IMPRESSION/DIAGNOSIS/PLAN Progressing as expected, complex table saw trauma. Zone 2 FDP for the middle finger, multiple digital nerves, including small finger ulnar digital nerve neuroma operative protocol. We will continue with flexor tendon protocol, continue forearm based dorsal blocking splint. Time frame for recovery of digital nerve sensation discussed. We will see him back in 1 month for repeat clinical assessment. Ry York M.D. Head Transfer Clerk Hand and Upper Extremity [facility] Dr. York is dictating using speech recognition software. Coal Mine Inspector variances may occur. documented in this encounter Plan of Treatment Not on file documented as of this encounter Visit Diagnoses Diagnosis Hand laceration involving tendon, left, initial encounter- Primary documented in this encounter Care Teams Master Chef Relationship Specialty Start Date End Date Unknown, Notinfile PCP - General 07/23/22 10/23/22 Jaylon Gudino MD [address] [place] [address] 07/23/22 documented as of this encounter
--- OUTSIDE RECORDS SUMMARY | 2024-03-03 11:44 | XMS_ITS | Encounter Summary ---
Author Organization [facility] Healthcare Address [address] [place] [address] Care Team Providers Care K 12 Principal Name Role Phone Unknown, Notinfile Primary Care Provider Unavail able Jaylon Gudino MD Unavailable [phone] Reason for Visit * Reason Comments OT Treatment * Consultation (Routine) - Closed Specialty Diagnoses / Procedures Referred By Contact Referred To Contact Occupational Therapy Diagnoses Hand injury, left, initial encounter DyRy MD [address] [place] [address] Phone: tel: fax: [facility] Occupational Therapy [address] [facility] [address] [place] [address] [place] [address] Phone: tel: fax: Referral ID Status Reason Start Date Expiration Date V isits Requested Visits Authorized [id number] Closed Evaluate and Treat 07/24/2022 08/23/2023 20 20 Encounter Details Date Type Department Care Team (Late st Contact Info) Description 09/11/2022 1:00 PM CDT Therapy [facility] Occupational Therapy 1 [place] [address] Karen Elias, OT 1 [place] [address] Injury of left hand, subsequent encounter (Primary [...] on file 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 (7 weeks, 1 day post op) Objective: No objective measurements were taken this date. Treatment Provided: US to left hand at 3.3MHz, 50% duty cycle, x's 8 minutes (pulsed setting) for scar management. Therapist completed scar massage Therapist completed PROM for composite flexion x's 5 reps Patient rolled his left palm on green therbar for scar management x's 3 minutes Bead transfer activity on string using 1.5 cm for LF flexion Bead transfer activity on string using 1.2 cm for RF flexion Bead transfer activity on string using 1.2 cm for SF flexion EDC glides using large marker x's 20 reps Large peg activity for increased digit flexion x's 25 large pegs Issued hand tongue and groove machine feeder with yellow band looped loosely for minimal resistance (completed x's 10 reps) Re-bandaged IF with anny and adaptic. Assessment: Patient continues to present with increased swelling of left digits. His IF tip is healing well with no signs of infection. He has moderate pain this date of left IF. He continues to have decreased ROM of left digits and wrist. He tolerated all therapy exercises well. Orthosis appears to fit well, patient verbalized a comfortable orthosis fit. He verbalized understanding of continuation of HEP [...] therapy to continue plan of care. Will fabricate new tip protector. Start Time: 1:00 PM End Time: 1:50 PM Karen Elias OTR/L documented in this encounter Plan of Treatment Not on file documented as of this encounter Visit Diagnoses Diagnosis Injury of left hand, subsequent encounter- Primary documented in this encounter Care Teams K 12 Principal Relationship Specialty Start Date End Date Unknown, Notinfile PCP - General 07/23/22 10/23/22 Jaylon Gudino MD [address] [place] [address] 07/23/22 documented as of this encounter
--- OUTSIDE RECORDS SUMMARY | 2024-03-03 11:44 | XMS_ITS | Encounter Summary ---
Author Organization [facility] Healthcare Address [address] [place] [address] Care Team Providers Care Die Maintenance Name Role Phone Unknown, Notinfile Primary Care Provider Unavail able Jaylon Gudino MD Unavailable [phone] Reason for Visit * Reason Comments OT Treatment * Consultation (Routine) - Closed Specialty Diagnoses / Procedures Referred By Contact Referred To Contact Occupational Therapy Diagnoses Hand injury, left, initial encounter DyRy MD [address] [place] [address] Phone: tel: fax: [facility] Occupational Therapy [address] [facility] [address] [place] [address] [place] [address] Phone: tel: fax: Referral ID Status Reason Start Date Expiration Date V isits Requested Visits Authorized [id number] Closed Evaluate and Treat 07/24/2022 08/23/2023 20 20 Encounter Details Date Type Department Care Team (Late st Contact Info) Description 09/01/2022 10:45 AM CDT Therapy [facility] Occupational Therapy 1 [place] [address] Karen Elias, OT 1 [place] [address] Injury of left hand, subsequent encounter (Primary [...] on file 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 Objective: Left flexion to DPC: 1.8 / 1.4 / 0.7 / 0.9 (Passive) Left flexion to DPC: 4.4 / 4.3 / 2.3 / 2.0 (Active) Treatment Provided: MHP x's 10 minutes to increase tissue extensibility Therapist completed edema management Therapist completed aggressive scar massage Therapist completed PROM for MP flexion x's 10 reps Therapist completed PROM for PIP flexion x's 10 reps Therapist completed PROM for DIP flexion x's 10 reps Therapist completed PROM for composite flexion x's 10 reps Patient completed AROM half fist x's 15 reps Re-bandaged hand with adaptic, band net, and anny wrap (ulnar aspect of intragraft sutures have dissolved). Assessment: Patient continues to present with increased [...] Primary documented in this encounter Care Teams Die Maintenance Relationship Specialty Start Date End Date Unknown, Notinfile PCP - General 07/23/22 10/23/22 Jaylon Gudino MD [address] [place] [address] 07/23/22 documented as of this encounter
--- OUTSIDE RECORDS SUMMARY | 2024-03-03 11:44 | XMS_ITS | Encounter Summary ---
Author Organization [facility] Healthcare Address [address] [place] [address] Care Team Providers Care Yard Attendant Name Role Phone Unknown, Notinfile Primary Care Provider Unavail able Jaylon Gudino MD Unavailable [phone] Reason for Visit * Reason Comments OT Treatment * Consultation (Routine) - Closed Specialty Diagnoses / Procedures Referred By Contact Referred To Contact Occupational Therapy Diagnoses Hand injury, left, initial encounter DyRy MD [address] [place] [address] Phone: tel: fax: [facility] Occupational Therapy [address] [facility] 6th [place] [address] [place] [address] Phone: tel: fax: Referral ID Status Reason Start Date Expiration Date V isits Requested Visits Authorized [id number] Closed Evaluate and Treat 07/24/2022 08/23/2023 20 20 Encounter Details Date Type Department Care Team (Late st Contact Info) Description 08/21/2022 11:30 AM CDT Therapy [facility] Occupational Therapy 1 [place] [address] Karen Elias, OT 1 [place] [address] Injury of left hand, subsequent encounter (Primary [...] on file 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 Objective: No objective measurements were taken this date. Treatment Provided: Therapist completed PROM for MP flexion x's 10 reps Therapist completed PROM for PIP flexion x's 10 reps Therapist completed PROM for DIP flexion x's 10 reps Therapist completed PROM for composite flexion x's 10 reps Patient completed AROM half fist x's 15 reps Educated patient on coban wrapping of LF to assist with edema management, issued coban for home Assessment: Patient continues to present with increased [...] to continue plan of care. Start Time: 11:35 AM End Time: 12:15 PM Karen Elias OTR/L documented in this encounter Plan of Treatment Not on file documented as of this encounter Visit Diagnoses Diagnosis Injury of left hand, subsequent encounter- Primary documented in this encounter Care Teams Yard Attendant Relationship Specialty Start Date End Date Unknown, Notinfile PCP - General 07/23/22 10/23/22 Jaylon Gudino MD [address] [place] [address] 07/23/22 documented as of this encounter
--- OUTSIDE RECORDS SUMMARY | 2024-03-03 11:44 | XMS_ITS | Encounter Summary ---
Author Organization [facility] Healthcare Address [address] [place] [address] Care Team Providers Care Lithograph Operator Name Role Phone Unknown, Notinfile Primary Care Provider Unavail able Jaylon Gudino MD Unavailable [phone] Reason for Visit * Reason Comments OT Treatment * Consultation (Routine) - Closed Specialty Diagnoses / Procedures Referred By Contact Referred To Contact Occupational Therapy Diagnoses Hand injury, left, initial encounter DyRy MD [address] [place] [address] Phone: tel: fax: [facility] Occupational Therapy [address] 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 Objective: Active Wrist and Forearm Range of Motion Right Left Extension/ Flexion Extension/ Flexion 59/53 Radial/Ulnar Deviation Radial/Ulnar Deviation Supination/ Pronation Supination/ Pronation Treatment Provided: MHP x's 10 minutes to increase tissue extensibility Therapist completed PROM for composite flexion x's 10 reps Educated patient on tendon gliding exercises Patient completed tendon glides x's 10 reps Educated patient on AROM exercises for WE/WF and RD/UD with digits relaxed Re-bandaged IF with adaptic and bandnet Therapist fabricated a tip protector for left IF Educated patient on orthosis wear/care Therapist completed aggressive scar massage Patient rolled his left palm on green therbar for scar management x's 3 minutes Assessment: Patient continues to present with increased swelling of left digits. His swelling is worse than it was during his last appointment. His IF tip is healing well with no signs of infection, his intragraft was removed yesterday. He has moderate pain this date where sutures and intragraft were removed. He continues to have decreased ROM of [...] care. Start Time: 10:05 AM End Time: 11:00 AM Karen Elias OTR/L documented in this encounter Plan of Treatment Not on file documented as of this encounter Visit Diagnoses Diagnosis Injury of left hand, subsequent encounter- Primary documented in this encounter Care Teams Lithograph Operator Relationship Specialty Start Date End Date Unknown, Notinfile PCP - General 07/23/22 10/23/22 Jaylon Gudino MD [address] [place] [address] 07/23/22 documented as of this encounter
--- OUTSIDE RECORDS SUMMARY | 2024-03-03 11:44 | XMS_ITS | Encounter Summary ---
Author Organization [facility] Address [address] [place] [address] Phone Care Team Providers Care Assembly Cleaner Name Role Phone Unknown, Notinfile Primary Care Provider Unavail able Jaylon Gudino MD Unavailable [phone] Reason for Visit * Reason Comments Follow-up Encounter Details Date Type Department Care Team (Late st Contact Info) Description 09/04/2022 2:20 PM CDT Office Visit [facility] Orthopaedic Surgery [address] [facility] [address] 6th [place] [address] [place] [address] Ry York MD [address] [facility] [address] [address] [facility] [address] [place], [place] [id number] Hand laceration involving tendon, left, initial encounter [...] on file 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 Here today for follow-up NEURAPTIVE protocol. Surgery was done by Dr. Glover and Dr. Stringer. The patient has been working with Karen Elias OT at [place] for flexor tendon rehab, currently in a forearm based dorsal blocking splint. He is happy with her result thus far, eager to get out of his splint. PHYSICAL EXAMINATION Index finger Integra coverage with appropriate appearance, no signs of dehiscence or delamination. Middle ring and small fingers are warm and well perfused. Suture line intact, sutures removed, well healed at the palmar digital crease for the middle finger, Active D IP flexion for middle ring and small finger. No signs of infection. No warmth or drainage. No discernible sensation ulnar or radialaspects of the middle or small finger. Active DPC 4 cm for middle ring and small, 2 cm for the index. Passive DPC 1 cm all fingers. REVIEW OF X-RAYS/STUDIES None today IMPRESSION/DIAGNOSIS/PLAN Progressing as expected, complex table saw trauma. Zone 2 FDP for the middle finger, multiple digital nerves, including small finger ulnar digital nerve neuroma operative protocol. I think it would be reasonable to discontinue the dorsal blocking orthosis, advance his therapy with his hand therapist. We will see him back in 6 weeks for repeat clinical assessment. Ry York M.D. Pier Master Assistant Hand and Upper Extremity [facility] Orthopedics Dr. York is dictating using speech recognition software. Sas Sql Developer variances may occur. documented in this encounter Plan of Treatment Not on file documented as of this encounter Visit Diagnoses Diagnosis Hand laceration involving tendon, left, initial encounter- Primary documented in this encounter Care Teams Assembly Cleaner Relationship Specialty Start Date End Date Unknown, Notinfile PCP - General 07/23/22 10/23/22 Jaylon Gudino MD [address] [place] [address] 07/23/22 documented as of this encounter
--- OUTSIDE RECORDS SUMMARY | 2024-03-03 11:44 | XMS_ITS | Encounter Summary ---
Author Organization [facility] Healthcare Address [address] [place] [address] Care Team Providers Care Call Manager Name Role Phone Unknown, Notinfile Primary Care Provider Unavail able Jaylon Gudino MD Unavailable [phone] Reason for Visit * Reason Comments OT Treatment * Consultation (Routine) - Closed Specialty Diagnoses / Procedures Referred By Contact Referred To Contact Occupational Therapy Diagnoses Hand injury, left, initial encounter DyRy MD [address] [facility] [address] [address] [place] [address] Phone: tel: fax: [facility] Occupational Therapy [address] [facility] 6th [place] [address] [place] [address] Phone: tel: fax: Referral ID Status Reason Start Date Expiration Date V isits Requested Visits Authorized [id number] Closed Evaluate and Treat 07/24/2022 08/23/2023 20 20 Encounter Details Date Type Department Care Team (Late st Contact Info) Description 08/12/2022 11:30 AM CDT Therapy [facility] Occupational Therapy 1 [place] [address] Karen Elias, OT 1 [place] [address] Injury of left hand, subsequent encounter (Primary [...] on file 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 Objective: No objective measurements were taken this date. Incision/IF tip are healing well with no signs of infection. Treatment Provided: Educated patient on edema management Educated patient importance of following protocol Therapist completed PROM for MP flexion x's 10 reps Therapist completed PROM for PIP flexion x's 10 reps Therapist completed PROM for DIP flexion x's 10 reps Therapist completed PROM for composite flexion x's 10 reps Patient completed AROM half fist x's 15 reps Therapist re-bandaged left hand Assessment: Patient continues to present with increased [...] AROM composite fist by 6 weeks (09/19/22) Will add more ROM, sensation, and strengthening goals as appropriate. Plan: Patient to return to therapy to continue plan of care. Start Time: 11:20 AM End Time: 12:00 PM Karen Elias OTR/L documented in this encounter Plan of Treatment Not on file documented as of this encounter Visit Diagnoses Diagnosis Injury of left hand, subsequent encounter- Primary documented in this encounter Care Teams Call Manager Relationship Specialty Start Date End Date Unknown, Notinfile PCP - General 07/23/22 10/23/22 Jaylon Gudino MD [address] [place] [address] 07/23/22 documented as of this encounter
--- OUTSIDE RECORDS SUMMARY | 2024-03-03 11:44 | XMS_ITS | Encounter Summary ---
Author Organization [facility] Healthcare Address [address] [place] [address] Care Team Providers Care Industrial Ecology Technician Name Role Phone Unknown, Notinfile Primary Care Provider Unavail able Jaylon Gudino MD Unavailable [phone] Reason for Visit * Reason Comments OT Initial Eval * Consultation (Routine) - Closed Specialty Diagnoses / Procedures Referred By Contact Referred To Contact Occupational Therapy Diagnoses Hand injury, left, initial encounter Ry York MD [address] [facility] [address] [address] [place] [address] Phone: tel: fax: [facility] Occupational Therapy [address] [facility] 6th [place] [address] [place] [address] Phone: tel: fax: Referral ID Status Reason Start Date Expiration Date V isits Requested Visits Authorized [id number] Closed Evaluate and Treat 07/24/2022 08/23/2023 20 20 Encounter Details Date Type Department Care Team (Late st Contact Info) Description 08/08/2022 9:00 AM CDT Therapy [facility] Occupational Therapy [address] [place] [address] Karen Elias, OT 1 [place] [address] Hand injury, left, initial encounter Social History Tobacco Use [...] on file 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 male Referring Provider: Ry York MD [address] [facility] [address] [place] [address] Injury of left hand, subsequent encounter Subjective: Patient reports: Patient arrived to therapy wearing his dorsal blocking orthosis. Patient's primary goal: To regain full use of left hand. Diagnosis: 1. Left hand table saw injury 2. Ulnar-sided left index finger soft tissue avulsion injury measuring 4 x 2 cm with exposed tendon 3. Middle finger radial digital artery injury 4. Middle finger radial digital nerve injury 5. Middle finger Flexor digitorum profundus tendon laceration 6. Middle finger flexor digitorum superficialis tendon laceration 7. Middle finger ulnar digital artery laceration 8. Middle finger ulnar digital nerve laceration 9. Ring finger ulnar digital artery laceration 10. Ring finger ulnar digital nerve laceration 11. Small finger radial digital nerve laceration 12. Small finger ulnar digital nerve laceration 13. Small finger ulnar digital artery laceration Date of onset: 07/23/33 Cause of injury: Patient was using a skill saw when he was cutting a shelf when it collapsed and hecut his left hand. Date of surgery: 07/23/22 Surgery details: 1.Left hand exploration 2.Left hand irrigation and [...] 11.Use of floor mounted operating room microscope Next MD Appointment: 09/04/22 No past medical history on file. 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 Patient enjoys bike marathons and working in his shop (working on furniture or building different things,), also enjoys helping people with projects. Work status: Retired, patient still does side work. Do you feel safe in your home environment?: [x] Yes [] No Hand dominance [x] Right [] Left [] Ambidextrous Involved side [] Right [x] Left [] Bilateral Numbness [x] Yes [] No Location: Left RF and SF Tingling [] Yes [x] No Location: N/A Pain at best: 2/10 Pain at worst: 4/10 Location: Left IF and dorsal aspect of digits. Are you taking pain medication? [] Yes [x] No Medication using: N/A ADL Status: [x] Independent [] Requires assistance [] Dependent Details: IADL Status: [x] Independent [] Requires assistance [] Depedendent Details: With increased time Leisure activities: [] Able to participate in leisure activities [x] Unable to participate in leisure activities Details: Sleep: [x] Reports adequate sleep to support daily routines [] Reports inadequate sleep to support daily routines Details: Patient states he only slept about 4 hours last night. He typically sleeps between 4-6 hours. Objective: QUICK DASH 08/08/2022 Open a tight or new jar 2 - Mild Difficulty Do heavy hospital monitor (e.g., wash del angel, floors) 1 - No Difficulty Carry a shopping bag or briefcase 1 - No Difficulty Wash your back 1 - No Difficulty Use a knife to cut food 3 - Moderate Difficulty Recreational activities in which you take some force or impact through your arm, shoulder, or hand (e.g., golf, hammering, tennis, etc.) 5 - Unable During the past week, to what extent has your arm, shoulder, or hand problem interfered with your normal social activities with family, friends, neighbours or groups? 3 - Moderately During the past week, were you limited in your work or other regular daily activities as a result of your arm, shoulder or hand problem? 4 - Very Limited Arm, shoulder or hand pain 3 - Moderate Tingling (pins and needles) in your arm, shoulder or hand 1 - None During the past week, how much difficulty have you had sleeping because of the pain in your arm, shoulder or hand? 3 - Moderate Difficulty Quick DASH Disability/Symptom Score: 36.36 Wound/appearance: Incisions are healing well with no signs of infection Left flexion to DPC: 4.0 / 3.5 / 2.9 / 1.9 (Passive) Treatment Provided: Educated patient on flexor tendon protocol Assessed incision Completed PROM to left digits for MP flexion x's 5 reps Completed PROM to left digits for PIP flexion x's 5 reps Completed PROM to left digits for DIP flexion x's 5 reps Completed PROM to left digits for composite flexion x's 5 reps Educated patient importance of completed exercises as educated Educated patient to complete gentle half fist (AROM) Assessment: Pt demonstrated independence/verbalized understanding in: [x] HEP [] Don/doff orthosis [x] All tx listed above Assessment details: Patient presents with decreased ROM of left digits and sensation. He has increased swelling. He hasmild pain this date. His incision is healing well with no signs of infection. He verbalized a comfortable orthosis fit. He verbalized understanding of flexor tendon protocol and HEP. He would benefitfrom continued OT services. Impairment list: [] Coordination [x] Edema [x] Endurance/activity tolerance [] Fine motor use [] Flexibility [] Gross motor use [] Muscle tone [x] Pain [x] Range of motion [x] Scar tissue [x] Sensation [] Sensory/motor [x] Skin integrity [x] Strength Functional Limitations: [x] [...] [x] Good [] Fair [] Poor ST) 08/08/22 Patient to be compliant with [...] sensation, and strengthening goals as appropriate. Plan: Frequency/Duration: 1-2 x's week x's 12 weeks Plan Details: Patient to return to therapy to work on ROM (A/PROM), scar management, edema management, modalities, orthosis fabrication/modification, functional activities, and strengthening (when able). Start time: 9:05 AM End time: 10:00 AM Karen Elias, OTR/L documented in this encounter Plan of Treatment Not on file documented as of this encounter Visit Diagnoses Diagnosis Hand injury, left, initial encounter documented in this encounter Orders Outpatient Referral Count Last Ordered Date Fir st Ordered Date AMB REFERRAL ORDER TO OCCUPATIONAL THERAPY 1 08/08/2022 documented in this encounter Care Teams Industrial Ecology Technician Relationship Specialty Start Date End Date Unknown, Notinfile PCP - General 07/23/22 10/23/22 Jaylon Gudino MD [address] [place] [address] 07/23/22 documented as of this encounter
--- OUTSIDE RECORDS SUMMARY | 2024-03-03 11:44 | XMS_ITS | Encounter Summary ---
Author Organization [facility] Healthcare Address [address] [place] [address] Care Team Providers Care Manager Real Estate Name Role Phone Unknown, Notinfile Primary Care Provider Unavail able Jaylon Gudino MD Unavailable Reason for Visit * Reason Comments OT Treatment * Consultation (Routine) - Closed Specialty Diagnoses / Procedures Referred By Contact Referred To Contact Occupational Therapy Diagnoses Hand injury, left, initial encounter DyRy MD [address] [facility] [facility] [address] [place] [address] Phone: tel: fax: [facility] Occupational Therapy [address] 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 He has been using his hand for more things around the house. He feels his motion and strength is improvement. (7 weeks, 6 days) Objective: No objective measurements were taken this date. Treatment Provided: MHP x's 10 minutes to increase tissue extensibility Therapist completed PROM for composite flexion x's 8 reps Therapist completed scar massage Fabricated an elastomer mold for scar management Educated patient on elastomer mold wear/care Silver ball manipulation x's 3 minutes Fabricated a new tip protector orthosis, patient lost other one Educated patient on the importance of ROM and scar massage Assessment: Patient continues to present with increased swelling of left digits and distal palm. His IF tip is healing well with no signs of infection. He has mild pain this date of left IF. He continues to havedecreased ROM of left digits and wrist. He [...] Primary documented in this encounter Care Teams Manager Real Estate Relationship Specialty Start Date End Date Unknown, Notinfile PCP - General 07/23/22 10/23/22 Jaylon Gudino MD [address] [place] [address] 07/23/22 documented as of this encounter
--- OUTSIDE RECORDS SUMMARY | 2024-03-03 11:44 | XMS_ITS | Encounter Summary ---
Author Organization [facility] Address [address] [place] [address] Phone Care Team Providers Care Taxicab Coordinator Name Role Phone Unknown, Notinfile Primary Care Provider Unavail able Jaylon Gudino MD Unavailable [phone] Reason for Referral * Neurology (Routine) - Closed Specialty Diagnoses / Procedures Referred By Contac t Referred To Contact Diagnoses Hand laceration involving tendon, left, initial encounter Traumatic injury of digital nerve of left little finger Procedures EMG/NCV WITH ULTRASOUND -Please select the performing region: [facility] (All Locations); Procedure performed at: [facility] [place] [address] [place] [address] [address] [place] [address] Phone: tel: fax: [facility] (All Locations) Referral ID Status Reason Start Date Expiration Date Visits Re quested Visits Authorized [id number] Closed 08/11/2022 09/10/2023 1 1 Encounter Details Date Type Department Care Team (Late st Contact Info) Description 08/11/2022 Orders Only [facility] Orthopaedic Surgery [address] [facility] 1st [address] [place] [address] Ry York MD [address] [facility] [address] [place] [address] Hand laceration involving tendon, left, initial encounter (Primary Dx); Traumatic injury of digital nerve of left [...] on file 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 Gender Identity Not on file Sexual Orientation Not on file documented as of this encounter Plan of Treatment Scheduled Orders Name Type Priority Associated Diagnoses Orde r Schedule EMG/NCV WITH ULTRASOUND -Please select the performing region: [facility] (All Locations); Procedure performed at: [facility] Ortho Physiatry Neurology Routine Hand laceration involving tendon, left, initial encounter Traumatic injury of digital nerve of left little finger Expected: 10/16/2022, Expires: 08/12/2023 documented as of this encounter Results * Basic metabolic panel (10/16/2022 3:23 PM CDT) Sodium 142 135 - 145 mmol/L [facility] Potassium, pl 4.1 3.3 - 4.9 mmol/L [facility] Chloride 105 97 - 110 mmol/L [facility] CO2 27 22 - 32 mmol/L [facility] Anion gap 10 2 - 15 mmol/L [facility] BUN 22 6 - 25 mg/dL [facility] Creatinine 1.23 0.80 - 1.30 mg/dL [facility] Glucose 104 70 - 199 mg/dL [facility] Comment: Interpretive Data Fasting glucose >/= 126 [...] 2022. Calcium 10.2 8.5 - 10.3 mg/dL [facility] Blood 10/16/2022 3:23 PM CDT 10/16/2022 3:51 PM CDT Ry York MD LAB BLOOD ORDERABLES Isela l Result Performing Organization Address [facility] Co de Phone Number [facility] [employer] [place] [address] * (ABNORMAL) CBC with auto differential (10/16/2022 3:23 PM CDT) WBC 7.3 3.8 - 9.9 K/cumm [facility] Hgb 12.9(L) 13.0 - 17.5 g/dL [facility] Hct 39.0 38.9 - 50.3 % [facility] Plt 203 150 - 400 K/cumm [facility] MPV 10.8 9.1 - 12.3 fL [facility] RBC 4.50 4.30 - 5.80 M/cumm [facility] MCV 86.7 81.3 - 96.4 fL [facility] MCH 28.7 27.1 - 33.3 pg [facility] MCHC 33.1 32.3 - 35.7 g/dL [facility] RDW CV 11.8 11.1 - 14.9 % [facility] RDW SD 37.4 35.7 - 48.1 fL [facility] NRBC abs 0.00 0.00 - 0.01 K/cumm [facility] Blood 10/16/2022 3:23 PM CDT 10/16/2022 3:51 PM CDT Ry York MD LAB BLOOD ORDERABLES Isela l Result Performing Organization Address [facility]/ZIP Co de Phone Number [facility] [employer] [place] [address] documented in this encounter Visit Diagnoses Diagnosis Hand laceration involving tendon, left, initial encounter- Primary Traumatic injury of digital nerve of left little finger documented in this encounter Care Teams Taxicab Coordinator Relationship Specialty Start Date End Date Unknown, Notinfile PCP - General 07/23/22 10/23/22 Jaylon Gudino MD [address] [place] [address] 07/23/22 documented as of this encounter
--- OUTSIDE RECORDS SUMMARY | 2024-03-03 11:44 | XMS_ITS | Encounter Summary ---
Author Organization [facility] Healthcare Address [address] [place] [address] Care Team Providers Care Pediatric Physical Therapist Name Role Phone Unknown, Notinfile Primary Care Provider Unavail able Jaylon Gudino MD Unavailable Reason for Visit * Reason Comments OT Treatment * Consultation (Routine) - Closed Specialty Diagnoses / Procedures Referred By Contact Referred To Contact Occupational Therapy Diagnoses Hand injury, left, initial encounter DyRy MD [address] [place] [address] Phone: tel: fax: [facility] Occupational Therapy [address] [facility] 6th [place] [address] [place] [address] Phone: tel: fax: Referral ID Status Reason Start Date Expiration Date V isits Requested Visits Authorized [id number] Closed Evaluate and Treat 07/24/2022 08/23/2023 20 20 Encounter Details Date Type Department Care Team (Late st Contact Info) Description 08/15/2022 10:45 AM CDT Therapy [facility] Occupational Therapy [address] [place] [address] Karen Elias, OT [address] [place] [address] Injury of left hand, subsequent encounter (Primary [...] on file 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 Objective: No objective measurements were taken this date. Treatment Provided: Educated patient on edema massage. Therapist completed edema manage to left hand Educated patient importance of following protocol Therapist completed PROM for MP flexion x's 10 reps Therapist completed PROM for PIP flexion x's 10 reps Therapist completed PROM for DIP flexion x's 10 reps Therapist completed PROM for composite flexion x's 10 reps Patient completed AROM half fist x's 15 reps Therapist re-bandaged left hand with adaptic and band net over IF tip and light covered incision with gauze wrap. Assessment: Patient continues to present with increased swelling of left digits. His incision and IF tip are healing well with no signs of infection. He has moderate pain this date. He continues to have decreased ROM of left digits. He tolerated all therapy exercises well. He verbalized understanding of continuation of HEP [...] to continue plan of care. Start Time: 10:35 AM End Time: 11:30 AM JUAN M Dixon/L documented in this encounter Plan of Treatment Not on file documented as of this encounter Visit Diagnoses Diagnosis Injury of left hand, subsequent encounter- Primary documented in this encounter Care Teams Pediatric Physical Therapist Relationship Specialty Start Date End Date Unknown, Notinfile PCP - General 07/23/22 10/23/22 Jaylon Gudino MD [address] [place] [address] 07/23/22 documented as of this encounter
--- OUTSIDE RECORDS SUMMARY | 2024-03-03 11:44 | XMS_ITS | Encounter Summary ---
Author Organization [facility] Healthcare Address [address] [place] [address] Care Team Providers Care Grizzly Worker Name Role Phone Unknown, Notinfile Primary Care Provider Unavail able Jaylon Gudino MD Unavailable [phone] Reason for Visit * Reason Comments OT Treatment * Consultation (Routine) - Closed Specialty Diagnoses / Procedures Referred By Contact Referred To Contact Occupational Therapy Diagnoses Hand injury, left, initial encounter DyRy MD [address] [place] [address] Phone: tel: fax: [facility] Occupational Therapy [address] [facility] 6th [place] [address] [place] [address] Phone: tel: fax: Referral ID Status Reason Start Date Expiration Date V isits Requested Visits Authorized [id number] Closed Evaluate and Treat 07/24/2022 08/23/2023 20 20 Encounter Details Date Type Department Care Team (Late st Contact Info) Description 08/18/2022 10:45 AM CDT Therapy [facility] Occupational Therapy 1 [place] [address] Karen Elias, OT [address] [place] [address] Injury of left hand, subsequent encounter (Primary [...] on file 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 Objective: No objective measurements were taken this date. Treatment Provided: Washed hand with wash cloth and soap and water (did not get intragraft wet) Discussed washing hand Discussed edema management Therapist completed PROM for MP flexion x's 10 reps Therapist completed PROM for PIP flexion x's 10 reps Therapist completed PROM for DIP flexion x's 10 reps Therapist completed PROM for composite flexion x's 10 reps Patient completed AROM half fist x's 15 reps Therapist re-bandaged left hand with adaptic and band net over IF tip and light covered incision with adaptic and gauze wrap. Assessment: Patient continues to present [...] to continue plan of care. Start Time: 10:55 AM End Time: 11:50 AM Karen Elias, OTR/L documented in this encounter Plan of Treatment Not on file documented as of this encounter Visit Diagnoses Diagnosis Injury of left hand, subsequent encounter- Primary documented in this encounter Care Teams Grizzly Worker Relationship Specialty Start Date End Date Unknown, Notinfile PCP - General 07/23/22 10/23/22 Jaylon Gudino MD [address] [place] [address] 07/23/22 documented as of this encounter
--- OUTSIDE RECORDS SUMMARY | 2024-03-03 11:45 | XMS_ITS | Encounter Summary ---
Author Organization [facility] Healthcare Address [address] [place] [address] Care Team Providers Care Tactical Air Control Party Manager Name Role Phone Jaylon Gudino MD Primary Care Provider [phone] Encounter Details Date Type Department Care Team (Late st Contact Info) Description 09/16/2017 7:40 AM CDT Lab [address] [address] Jaylon Gudino MD [address] [place] [address] Discharge Disposition: Discharge to home or self care Social History Tobacco Use Types Packs/Day Years Used Date Smoking Tobacco: Former Sex and Gender Information Value Date Recorded Sex Assigned at Not on file 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 Gender Identity Not on file Sexual Orientation Not on file documented as of this encounter Discharge Disposition Disposition Code Departure Means Destination Discharge to home or self care documented in this encounter Plan of Treatment Not on file documented as of this encounter Procedures Procedure Name Priority Date/Time Associated Diagnosis Comments EGFR Routine 09/16/2017 7:39 AM CDT LIPID PANEL Routine 09/16/2017 7:39 AM CDT COMPREHENSIVE METABOLIC PANEL Routine 09/16/2017 7:39 AM CDT documented in this encounter Results * eGFR (09/16/2017 7:39 AM CDT) eGFR 58 mL/min/1.7 3 m2 [facility] ([place]) Comment: Interpretive Data Reference Interval Normal ?>/= 90 mL/min/1.73m2 Mildly decreased* ? 60 - 89 mL/min/1.73m2 Mildly to moderately decreased ?45 - 59 mL/min/1.73m2 Moderately to severely decreased ??30 - 44 mL/min/1.73m2 Severely decreased ?15 - 29 mL/min/1.73m2 Kidney Failure ?< 15 ??mL/min/1.73m2 *Relative to young adult level If -[place] multiply value by 1.16. Estimated glomerular filtration rate is determined by the CKD-EPI equation recommended by the National Kidney Foundation (KDIGO 2012 Clinical Practice Guideline for the Evaluation and Management of Chronic Kidney Disease. Kidney Intnl Suppl Mar 2012;3:1). The CKD-EPI equation should not be used for patients with unstable renal function and has not been validated in children and those over 70. Current interpretive data was last reviewed 2015. Blood specimen (specimen) 09/16/2017 7:39 AM CDT 09/16/2017 8:40 AM CDT Narrative [facility] ([place]) - 09/16/2017 9:08 AM CDT us Jaylon Gudino MD LAB BLOOD ORDERABLES Final Result [facility] ([place]) 1 [facility] Department of Laboratories [place], [place] [id number] * (ABNORMAL) Lipid panel (09/16/2017 7:39 AM CDT) Cholesterol 223(H) 40 - 199 mg/dL [facility] ([place]) Comment: Interpretive Data Desirable: ??Less than 200 mg/dl ? Borderline High: ?200 - 239 mg/dl ? High: ??Greater than ?? 239 mg/dl Current interpretive data was last revised on 2014. Triglycerides 640.0(H) <=150.0 mg/dL [facility] ([place]) Comment: Interpretive Data Normal: ? Less than 150 mg/dl Borderline high: ??150-199 mg/dl ?? High: ? 200-499 mg/dl ? Very high: ??Greater than or equal to 500 mg/dl Current interpretive data was last revised on 2016. HDL 46 40 - 60 mg/dL [facility] ([place]) Comment: Interpretive Data Low HDL Cholesterol: ? Less than 40 mg/dl Normal HDL Cholesterol: ??40-60 mg/dl High HDL Cholesterol: ?Greater than 60 mg/dl Current interpretive data was last revised on 2014. LDL, calculated 49 mg/dL [facility] ([place]) Comment: Interpretive Data Optimal ? Less than 100 mg/dL ? Near optimal/Above optimal ??100 - 129 mg/dL ? Borderline high ? 130 - 159 mg/dL ? High ?160 - 189 mg/dL ? Very high ? Greater than or = 190 mg/dL ? LDL values are not valid when the total Triglyceride is greater than 300 mg/dL. Current interpretive data was last revised on 2014. Non-HDL Cholesterol 177 mg/dL [facility] ([place]) Comment: Interpretive Data Optimal ? Less than 130 mg/dL Low Risk ?130 - 159 mg/dL Moderate Risk ? 160 - 189 mg/dL High Risk ? Greater than or equal to 190 mg/dL Current interpretive data was last revised on 2014. Blood specimen (specimen) 09/16/2017 7:39 AM CDT 09/16/2017 8:40 AM CDT Narrative [facility] ([place]) - 09/16/2017 9:08 AM CDT us Jaylon Gudino MD LAB BLOOD ORDERABLES Final Result [facility] ([place]) [address] [facility] Department [place] [address] * (ABNORMAL) Comprehensive metabolic panel (09/16/2017 7:39 AM CDT) Sodium 138 135 - 145 mmol/L [facility] ([place]) Potassium, pl 3.9 3.3 - 4.9 mmol/L [facility] ([place]) Chloride 97 97 - 110 mmol/L [facility] ([place]) CO2 26 22 - 32 mmol/L [facility] ([place]) Anion gap 15 2 - 15 mmol/L [facility] ([place]) BUN 34(H) 8 - 25 mg/dL [facility] ([place]) Creatinine 1.22 0.80 - 1.30 mg/dL [facility] ([place]) Glucose 127 70 - 199 mg/dL [facility] ([place]) Comment: Interpretive Data Fasting glucose >/= 126 [...] classification and Diagnosis of Diabetes Diabetes Care 2017;40 (Suppl. 1):S11. Current interpretive data was last revised 2017. Calcium 9.4 8.5 - 10.3 mg/dL [facility] ([place]) Bilirubin, total 0.3 0.1 - 1.2 mg/dL [facility] ([place]) Protein, pl 7.3 6.5 - 8.5 g/dL [facility] ([place]) Albumin 4.3 3.5 - 5.0 g/dL [facility] ([place]) Alk phos 63 40 - 130 Units/L [facility] ([place]) ALT 29 7 - 55 Units/L [facility]) AST 31 10 - 50 Units/L [facility] ([place]) Comment:Hemolysis present. R esults may be affected. Blood specimen (specimen) 09/16/2017 7:39 AM CDT 09/16/2017 8:40 AM CDT Narrative [facility] ([place]) - 09/16/2017 9:08 AM CDT -fax results to [phone] Jaylon Gudino MD LAB BLOOD ORDERABLES Final Result [facility] ([place]) [address] [facility] Department [place] [address] documented in this encounter Visit Diagnoses Not on filedocumented in this encounter Care Teams Tactical Air Control Party Manager Relationship Specialty Start Date End Date Jaylon Gudino MD [address] [place] [address] PCP - General 07/07/16 07/22/22 documented as of this encounter
--- OUTSIDE RECORDS SUMMARY | 2024-03-03 11:45 | XMS_ITS | Encounter Summary ---
Author Organization [facility] Healthcare Address [address] [place] [address] Care Team Providers Care Remittance Clerk Name Role Phone Jaylon Gudino MD Primary Care Provider [phone] Encounter Details Date Type Department Care Team (Late st Contact Info) Description 04/17/2020 11:10 AM VETERINARY ASSISTANT TECHNICIAN [address] [address] Jaylon Gudino MD [address] [place] [address] Discharge Disposition: Discharge to home or self care Social History Tobacco Use Types Packs/Day Years Used Date Smoking Tobacco: Former Sex and Gender Information Value Date Recorded Sex Assigned at Not on file Legal Sex Male 3:56 AM VETERINARY ASSISTANT TECHNICIAN Gender Identity Not on file Sexual Orientation Not on file documented as of this encounter Discharge Disposition Disposition Code Departure Means Destination Discharge to home or self care documented in this encounter Plan of Treatment Not on file documented as of this encounter Procedures Procedure Name Priority Date/Time Associated Diagnosis Comments EGFR Routine 04/17/2020 11:20 AM VETERINARY ASSISTANT TECHNICIAN HEMOGLOBIN A1C Routine 04/17/2020 11:20 AM VETERINARY ASSISTANT TECHNICIAN LIPID PANEL Routine 04/17/2020 11:20 AM VETERINARY ASSISTANT TECHNICIAN BASIC METABOLIC PANEL Routine 04/17/2020 11:20 AM VETERINARY ASSISTANT TECHNICIAN documented in this encounter Results * eGFR (04/17/2020 11:20 AM VETERINARY ASSISTANT TECHNICIAN) [facility] eGFR 66 mL/min/1.7 3 m2 [facility] Comment: Interpretive Data Reference Interval Normal ?>/= [...] 70. Current interpretive data was last reviewed 2020 Blood specimen (specimen) 04/17/2020 11:20 AM VETERINARY ASSISTANT TECHNICIAN 04/17/2020 11:24 AM VETERINARY ASSISTANT TECHNICIAN Jaylon Gudino MD LAB BLOOD ORDERABLES Final Result [facility] ([place] 1 [facility] Department [place] [address] * (ABNORMAL) Hemoglobin A1c (04/17/2020 11:20 AM VETERINARY ASSISTANT TECHNICIAN) [facility] Hgb A1C 5.9(H) 4.0 - 5.6 % [facility] ([place]) Estimated Average Glucose 123 mg/dL [facility] Comment: The ADA recommends reporting an estimated Average Glucose (eAG) with all Hemoglobin A1c results using the equation derived from a study of 507 normal and diabetic adults. ??Minority populations were underrepresented and children were not included. ?? (Diabetes Care 31:4381-0666, 2008). ??The eAG is not equivalent to a fasting glucose. Blood specimen (specimen) 04/17/2020 11:20 AM VETERINARY ASSISTANT TECHNICIAN 04/17/2020 11:24 AM VETERINARY ASSISTANT TECHNICIAN us Jaylon Gudino MD LAB BLOOD ORDERABLES Final Result [facility] ([place]) 1 [facility] Department [place] [address] * (ABNORMAL) Lipid panel (04/17/2020 11:20 AM VETERINARY ASSISTANT TECHNICIAN) Cholesterol 160 30 - 199 mg/dL [facility] ([place]) Comment: Interpretive Data Ages < or = 19 years ??Acceptable: ? <170 mg/dL ??Borderline high: ??170-199 mg/dL ??High: ? >or= 200 mg/dL Ages > or = 20 years ??Desirable: ?<200 mg/dL ??Borderline high: ??200-239 mg/dL ??High: ? >or= 240 mg/dL Literature References: 1. Expert Panel on Integrated Guidelines for Cardiovascular Health and Risk Reduction in Children and Adolescents. Pediatrics 2011;128:S213 2. NCEP Expert Panel. Circulation 2004;110:227 Current Interpretive Data was last revised on 2017. Triglycerides 191(H) <=149 mg/dL [facility] ([place]) Comment: Interpretive Data Ages < or = 9 years ??Acceptable: ? <75 mg/dL ??Borderline high: ??75-99 mg/dL ??High: ? >or= 100 mg/dL Ages 10 to 20 years ??Acceptable: ? <90 mg/dL ??Borderline high: ??90-129 mg/dL ??High: ? >or= 130 mg/dL Ages > or = 20 years ??Desirable: ?<150 mg/dL ??Borderline high: ??150-199 mg/dL ??High: ? 200-499 mg/dL ?Very high: ?? >or= 499 mg/dL Literature References: 1. Expert Panel on Integrated Guidelines for Cardiovascular Health and Risk Reduction in Children and Adolescents. Pediatrics 2011;128:S213 2. NCEP Expert Panel. Circulation 2004;110:227 Current Interpretive Data was last revised on 2017. HDL 70 >=40 mg/dL [facility] ([place]) Comment: Interpretive Data Ages < or = 19 years ??Acceptable: ? >45 mg/dL ??Borderline low: ?? 40-45 mg/dL ??Low: ? <40 mg/dL Ages > or = 20 years ??Desirable: ?>or= 60 mg/dL ??Low: ? <40 mg/dL Literature References: 1. Expert Panel on Integrated Guidelines for Cardiovascular Health and Risk Reduction in Children and Adolescents. Pediatrics 2011;128:S213 2. NCEP Expert Panel. Circulation 2004;110:227 Current Interpretive Data was last revised on 2017. LDL, calculated 52 <=129 mg/dL [facility] ([place]) Comment: Interpretive Data Ages < or = 19 years ??Acceptable: ? <110 mg/dL ??Borderline high: ??110-129 mg/dL ??High: ?>or= 130 mg/dL Ages > or = 20 years ??Optimal: ? <100 mg/dL ??Near optimal: ?100-129 mg/dL ??Borderline high: ?? 130-159 mg/dL ??High: ?>160 mg/dL Literature References: 1. Expert Panel on Integrated Guidelines for Cardiovascular Health and Risk Reduction in Children and Adolescents. Pediatrics 2011;128:S213 2. NCEP Expert Panel. Circulation 2004;110:227 Current Interpretive Data was last revised on 2017. Non-HDL Cholesterol 90 mg/dL [facility] ([place]) Comment: Interpretive Data Ages < or = 19 years ??Acceptable: ?<120 mg/dL ??Borderline high: ??120-144 mg/dL ??High: ?>145 mg/dL Ages > or = 20 years ??When triglycerides are >200 mg/dL, Non-HDL cholesterol is a secondary target of ? therapy with treatment goals that are 30 mg/dL greater than the LDL cholesterol target. ? Literature References: 1. Expert Panel on Integrated Guidelines for Cardiovascular Health and Risk Reduction in Children and Adolescents. Pediatrics 2011;128:S213 2. NCEP Expert Panel. Circulation 2004;110:227 Current Interpretive Data was last revised on 2017. Chol/HDL ratio 2 [facility] ([place]) Blood specimen (specimen) 04/17/2020 11:20 AM VETERINARY ASSISTANT TECHNICIAN 04/17/2020 11:24 AM VETERINARY ASSISTANT TECHNICIAN us Jaylon Gudino MD LAB BLOOD ORDERABLES Final Result [facility] 1 [facility] Department [place] [address] * Basic metabolic panel (04/17/2020 11:20 AM VETERINARY ASSISTANT TECHNICIAN) Sodium 142 135 - 145 mmol/L [facility] Potassium, pl 4.5 3.3 - 4.9 mmol/L [facility] ([place]) Chloride 105 97 - 110 mmol/L [facility] ([place]) CO2 29 22 - 32 mmol/L [facility]) Anion gap 8 2 - 15 mmol/L [facility] ([place]) BUN 23 8 - 25 mg/dL [facility] ([place]) Creatinine 1.09 0.80 - 1.30 mg/dL [facility] ([place]) Glucose 123 70 - 199 mg/dL [facility] Comment: Interpretive Data Fasting glucose [...] interpretive data was last revised 2017. Calcium 9.7 8.5 - 10.3 mg/dL [facility] ([place]) Blood specimen (specimen) 04/17/2020 11:20 AM VETERINARY ASSISTANT TECHNICIAN 04/17/2020 11:24 AM VETERINARY ASSISTANT TECHNICIAN Narrative [facility] ([place]) - 04/17/2020 11:57 AM VETERINARY ASSISTANT TECHNICIAN fax results to [phone] us Jaylon Gudino MD LAB BLOOD ORDERABLES Final Result [facility] ([place]) 1 [facility] Department [place] [address] documented in this encounter Visit Diagnoses Not on filedocumented in this encounter Care Teams Remittance Clerk Relationship Specialty Start Date End Date Jaylon Gudino MD [address] [place] [address] PCP - General 07/07/16 07/22/22 documented as of this encounter
--- OUTSIDE RECORDS SUMMARY | 2024-03-03 11:45 | XMS_ITS | Encounter Summary ---
Author Organization [facility] Address [address] [place] [address] Phone Care Team Providers Care Logistics Operations Director Name Role Phone Jaylon Gudino MD Primary Care Provider +1- [phone] Reason for Visit * Reason Comments Follow-up Encounter Details Date Type Department Care Team (Late st Contact Info) Description 04/24/2022 1:30 PM LEACHER Office Visit [facility] Surgery [address] [place] [address] [address] [place] [phone] Myriam Olson NP [address] [place] [address] Trigger ring finger of left hand (Primary Dx); Trigger middle finger of right hand; Arthritis pain of hand Social History Tobacco Use Types Packs/Day Years Used Date Smoking Tobacco: Former Sex and Gender Information Value Date Recorded Sex Assigned at Not on file Legal Sex Male 3:56 AM LEACHER Gender Identity Not on file Sexual Orientation Not on file documented as of this encounter Progress Notes * Myriam Olson NP - 04/24/2022 1:30 PM CST Plastic, Reconstructive, and Hand Surgery History and Physical Patient: Bacilio Ramirez : 1945 Date of Service: 04/24/2022 PCP: Jaylon Gudino MD Referring Provider: Jaylon Gudino MD Chief Complaint: Follow-up History of Present Illness: Bacilio Ramirez is a 76 y.o. right hand dominant male who presents with reoccurring bilateral fingerpain and he states triggering. He was last seen in October by Dr. Barry for Kenalog injections. Received injections to Right long, left index and long finger. Prior injections of 02/18/21 to right long finger and left ring finger. History reviewed. No pertinent past medical history. History reviewed. No pertinent surgical history. History reviewed. No pertinent family history. Social History Tobacco Use Smoking status: Former Smokeless tobacco: None Substance and Sexual Activity Drug use: None Sexual activity: None Alcohol Use: Not on file Allergies Allergen Reactions Penicillins Hives Sulfa (Sulfonamide Antibiotics) Rash Moxifloxacin Other Unknown Simvastatin Other (See comments) MUSCLE PAIN Current Outpatient Medications on File Prior to Visit Medication Sig Dispense Refill amLODIPine (NORVASC) 5 mg tablet Take 1 tablet by mouth 2 (two) times a day levothyroxine (SYNTHROID) 25 mcg tablet TAKE 1 TABLET BY MOUTH 4 TIMES A WEEK losartan (COZAAR) 100 mg tablet Take 1 tablet by mouth daily pravastatin (PRAVACHOL) 40 mg tablet Take 2 tablets by mouth nightly RABEprazole DR (ACIPHEX) 20 mg EC tablet TAKE 2 TABLETS BY MOUTH ONCE DAILY. TAKE 30-60 MINUTES BEFORE SUPPER. valsartan (DIOVAN) 160 mg tablet Take 160 mg by mouth daily No current facility-administered medications on file prior to visit. Physical Exam: There were no vitals taken for this visit. On exam he does not have obvious triggering but pain and stiffness of his joints most significant at volar MP joints. He is able to make a full fist and hold objects without dropping. He is also able to fully extend all digits. He denies numbness tingling to distal fingertips and has adequate perfusion He has tenderness over A1 mame of Left Long and ring finger, right long finger. I do not not significant enlargement of A1 mame. Assessment and Plan: 76 y.o. rigth hand dominant male who presents with bilateral pain that is likely arthritic bases. We discussed that he currently is not having triggering and repeat steroid injections into tendon sheath is not recommended as it can weaken the tendon causing rupture. He states that had similar pain in October and that steroid injections relieved. I have recommended steroid injections to his MP joints versus trigger finger injections. He is in agreement with this and wishes to proceed. Risks of procedure was discussed. He verbalizedunderstanding. All of his questions were answered and he was instructed to contact the office if he has additionalquestions. Follow up: PRN Restriction: as tolerated I spent 30 minutes on this patient encounter which included review of medical records. Over half the time was spent with the patient face to face discussing the treatment plan, counseling and coordinating care. Myriam Olson NP 04/24/22 1:24 PM This document was transcribed using voice recognition software without a human primary products inspectors. Itmay contain typographical, grammatical, and/or syntax errors. HER documented in this encounter Procedure Notes * Myriam Olson NP - 04/24/2022 1:30 PM CST Procedures PROCEDURE: small Joint Steroid Injection - Left Index finger MCP joint After discussing the risks (including bleeding, infection, damage to nearby structures including skin/tendon), benefits, alternatives, and expected post- injection course, verbal informed consent was obtained by the patient. The skin over the joint was cleaned with chloraprep A 27G needle was used to access the volar aspect of the joint <1 ml of 1% lidocaine plain was injected into the soft tissue and joint The needle was left in place and 20 mg (0.5 ml) of kenalog 40 was injected into the joint The skin was wiped again with chloraprep and a Band-Aid was applied The patient tolerated the procedure well PROCEDURE: small Joint Steroid Injection - Left Middle finger MCP joint After discussing the risks (including bleeding, infection, damage to nearby structures including skin/tendon), benefits, alternatives, and expected post- injection course, verbal informed consent was obtained by the patient. The skin over the joint was cleaned with chloraprep A 27G needle was used to access the volar aspect of the joint <1 ml of 1% lidocaine plain was injected into the soft tissue and joint The needle was left in place and 20 mg (0.5 ml) of kenalog 40 was injected into the joint The skin was wiped again with chloraprep and a Band-Aid was applied The patient tolerated the procedure well PROCEDURE: small Joint Steroid Injection - Left Ring finger MCP joint After discussing the risks (including bleeding, infection, damage to nearby structures including skin/tendon), benefits, alternatives, and expected post- injection course, verbal informed consent was obtained by the patient. The skin over the joint was cleaned with chloraprep A 27G needle was used to access the volar aspect of the joint <1 ml of [...] Injection - Right Middle finger MCP joint After discussing the risks (including bleeding, infection, damage to nearby structures including skin/tendon), benefits, alternatives, and expected post- injection course, verbal informed consent was obtained by the patient. The skin over the joint was cleaned with chloraprep A 27G needle was used to access the volar aspect of the joint <1 ml of [...] Joint Steroid Injection - Right Ring finger MCP joint After discussing the risks (including bleeding, infection, damage to nearby structures including skin/tendon), benefits, alternatives, and expected post- injection course, verbal informed consent was obtained by the patient. The skin over the joint was cleaned with chloraprep A 27G needle was used to access the volar aspect of the joint <1 ml of 1% lidocaine plain was injected into the soft tissue and joint The needle was left in place and 20 mg (0.5 ml) of kenalog 40 was injected into the joint The skin was wiped again with chloraprep and a Band-Aid was applied The patient tolerated the procedure well HER documented in this encounter Plan of Treatment Not on file documented as of this encounter Visit Diagnoses Diagnosis Trigger ring finger of left hand- Primary Trigger middle finger of right hand Arthritis pain of hand documented in this encounter Administered Medications Inactive Administered Medications - up to 3 most recent administrations Medication Order MAR Action Action Date Dose Rate Site lidocaine (XYLOCAINE) 10 mg/mL (1 %) injection 25 mg 25 mg (2.5 mL), other, Once, On Jael 04/24/22 at 1500, For 1 dose, Indications: Administration of Local AnesthesiaIndications:Administrati on of Local Anesthesia Given 04/24/2022 2:21 PM LEACHER 25 mg triamcinolone (KENALOG) 40 mg/mL injection 100 mg 100 mg, other, Once, On Jael 04/24/22 at 1500, For 1 doseIndications:Trigger middle finger of right hand,Trigger ring finger of left hand Given 04/24/2022 2:23 PM LEACHER 100 mg documented in this encounter Historical Medications * This list may reflect changes made after this encounter. levothyroxine (SYNTHROID) 25 mcg tabletIndications :hypothyroidism Take 1 tablet (25 mcg total) by mouth every other day 04/09/2022 02/02/2024 added in this encounter Care Teams Logistics Operations Director Relationship Specialty Start Date End Date Jaylon Gudino MD [address] [place] [address] PCP - General 07/07/16 07/22/22 documented as of this encounter
--- OUTSIDE RECORDS SUMMARY | 2024-03-03 11:45 | XMS_ITS | Encounter Summary ---
Author Organization [facility] Address [address] [place] [address] Care Team Providers Care Can Closing Machine Operator Name Role Phone Jaylon Gudino MD Primary Care Provider [phone]- [phone] Encounter Details Date Type Department Care Team (Late st Contact Info) Description 12/23/2017 7:15 AM CDT Lab [address] [phone] Jaylon Gudino MD [address] [place] [address] Discharge Disposition: Discharge to home or self care Social History Tobacco Use Types Packs/Day Years Used Date Smoking Tobacco: Former Sex and Gender Information Value Date Recorded Sex Assigned at Not on file Legal Sex Male 3:56 AM COSTUMER Gender Identity Not on file Sexual Orientation Not on file documented as of this encounter Discharge Disposition Disposition Code Departure Means Destination Discharge to home or self care documented in this encounter Plan of Treatment Not on file documented as of this encounter Procedures Procedure Name Priority Date/Time Associated Diagnosis Comments ALT Routine 12/23/2017 7:14 AM CDT AST Routine 12/23/2017 7:14 AM CDT LIPID PANEL Routine 12/23/2017 7:14 AM CDT documented in this encounter Results * AST (12/23/2017 7:14 AM CDT) AST 30 10 - 50 Units/L [facility] ([place]) Blood specimen (specimen) 12/23/2017 7:14 AM CDT 12/23/2017 7:50 AM CDT Narrative SHANE CORBIN ([place]) - 12/23/2017 8:45 AM CDT us Jaylon Gudino MD LAB BLOOD ORDERABLES Final Result SHANE CORBIN ([place]) 1 [facility] Department [place] [address] * (ABNORMAL) Lipid panel (12/23/2017 7:14 AM CDT) Cholesterol 168 30 - 199 mg/dL SHANE ALANIZ ([place]) [...] Data was last revised on 2017. Triglycerides 199(H) <=149 mg/dL SHANE ALANIZ ([place]) Comment: Interpretive [...] Data was last revised on 2017. HDL 56 >=40 mg/dL SHANE ALANIZ ([place]) Comment: Interpretive [...] was last revised on 2017. LDL, calculated 72 <=129 mg/dL SHANE ALANIZ ([place]) Comment: Interpretive [...] was last revised on 2017. Non-HDL Cholesterol 112 mg/dL [facility] ([place]) Comment: Interpretive Data [...] was last revised on 2017. Chol/HDL ratio 3 [facility] ([place]) Blood specimen (specimen) 12/23/2017 7:14 AM CDT 12/23/2017 7:50 AM CDT Narrative SHANE ALANIZ ([place]) - 12/23/2017 8:45 AM CDT us Jaylon Gudino MD LAB BLOOD ORDERABLES Final Result Performing Organization Address City/[facility] Co de Phone Number SHANE ALANIZ ([place]) 1 [facility] [place] [address] * ALT (12/23/2017 7:14 AM CDT) ALT 26 7 - 55 Units/L SHANE ALANIZ ([place]) Blood specimen (specimen) 12/23/2017 7:14 AM CDT 12/23/2017 7:50 AM CDT Narrative SHANE CORBIN ([place]) - 12/23/2017 8:45 AM CDT fax results to [phone] Jaylon Gudino MD LAB BLOOD ORDERABLES Final Result Performing Organization Address City/[facility]/ZIP Co de Phone Number SHANE ALANIZ ([place]) 1 [facility] [place] [address] documented in this encounter Visit Diagnoses Not on filedocumented in this encounter Care Teams Can Closing Machine Operator Relationship Specialty Start Date End Date Jaylon Gudino MD [address] [place] [address] PCP - General 07/07/16 07/22/22 documented as of this encounter
--- OUTSIDE RECORDS SUMMARY | 2024-03-03 11:45 | XMS_ITS | Encounter Summary ---
Author Organization [facility] Address [address] [place] [address] Phone Care Team Providers Care Pulp Drier Name Role Phone Jaylon Gudino MD Primary Care Provider [phone]- [phone] Unknown, Notinfile Primary Care Provider Unavail able Jaylon Gudino MD Unavailable [phone] Jaylon Gudino MD Primary Care Provider +- [phone] Encounter Details Date Type Department Care Team (Late st Contact Info) Description 02/15/2021 Telephone [facility] Surgery 2 [facility] [address] [place] [phone] Kaia Gold Social History Tobacco Use Types Packs/Day Years Used Date Smoking Tobacco: Former Sex and Gender Information Value Date Recorded Sex Assigned at Not on file Legal Sex Male 3:56 AM MANAGER OF INTERNAL 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
--- OUTSIDE RECORDS SUMMARY | 2024-03-03 11:45 | XMS_ITS | Encounter Summary ---
Author Organization [facility] Healthcare Address [address] [place] [address] Care Team Providers Care Grassroots Organizer Name Role Phone Unknown, Notinfile Primary Care Provider Unavail able Jaylon Gudino MD Unavailable [phone] Reason for Visit * Reason Comments Hand Injury * Auth/Cert (Routine) Specialty Diagnoses / Procedures Referred By Contac t Referred To Contact Diagnoses Injury of left hand, initial encounter Nerve injury Procedures N/A Referral ID Status Reason Start Date Expiration Date Visits Re quested Visits Authorized [id number] 1 1 Encounter Details Date Type Department Care Team (Latest Contact Info) Description 07/23/2022 11:09 AM CDT - 07/24/2022 3:09 PM CDT Hospital Encounter [facility] [address] [place] [address] Myla Hudson MD [address] [place] [address] Toro Mercado MD [address] [facility] [id number] [place] [address] Vimal Glover MD [address] [facility] [address] [place] [address] Injury of left hand, initial encounter (Primary Dx); Hand laceration involving tendon, left, initial encounter Discharge Disposition: Discharge to home or self care Social History Tobacco Use Types Packs/Day Years Used Date Smoking Tobacco: Former Cigarettes Q uit: 1989 Tobacco Cessation:Counseling Given: Not Answered AUDIT-C Answer Date Recorded Q1: How often do you have a drink containing alc ohol? 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 Gender Identity Not on file Sexual Orientation Not on file documented as of this encounter Last Filed Vital Signs Vital Sign Reading Time Taken Comments Blood Pressure 145/66 07/24/2022 11:33 AM CDT Pulse 64 07/24/2022 11:33 AM CDT Temperature 36.3 ??C (97.3 ??F) 07/24/2022 11:33 AM C DT Respiratory Rate 18 07/24/2022 11:33 AM CDT Oxygen Saturation 100% 07/24/2022 11:33 AM CDT Inhaled Oxygen Concentration - - Weight 84.8 kg (187 lb) 07/24/2022 1:45 AM CDT Height 175.3 cm (5' 9 ) 07/24/2022 1:45 AM CDT Body Mass Index 27.62 07/24/2022 1:45 AM CDT documented in this encounter Discharge Summaries * Tequila Burdick NP - 07/24/2022 2:12 PM CDT [facility]iatric Trauma Surgery Inpatient Discharge Summary This is a clinical resume for patient Bacilio Ramirez for attending Toro Mercado MD Admission Date: 07/23/2022 Admitting Provider: Vimal Glover MD Discharge Date: 07/24/2022 Hospitalization: Total duration of encounter: 1 day Team: Geriatric Trauma Surgery Primary Care Provider: Unknown, Notinfile Discharge Diagnosis(es): Principal Problem: Injury of left hand, initial encounter Active Problems: Nerve injury Resolved Problems: No resolved hospital problems. Hospital Course: Clinical Course: stable History of Present Illness: Patient is a 74-year-old male who presented to the [facility] emergency department after sustaining a injury to his left hand from a skill saw earlier today. 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 Examination in the emergency department demonstrated perfusion to all digits including the middle finger with good capillary refill and a dopplerable radial digital artery to the middle finger likely via communication with the dorsal circulation system. He had altered sensation in the middle ring and small fingers as demonstrated by abnormal two-point discrimination. Taken to the OR perortho hand for and I/d and exploration of the hand injuries. Active Issues Requiring Follow Up: #Left hand laceration - Ortho hand - 07/24 OR for I&D - JUDE GALVEZ - initiate a zone 2 flexor tendon rehab protocol within 5 days - discharge on [id number] and persantine x 4 weeks for his arterial repair to the ulnar digital artery of the middle finger - 1 week follow-up with Dr. York per the Neuraptive protocol Operative Procedures Performed: REPAIR NERVE (Left: Fingers) REPAIR TENDON - HAND (Left: Hand) Repair Nerve - Left and Repair Tendon - Hand - Left Consultations: orthopedic surgery Discharge Physical Exam: Discharge Condition: stable Pulse: 64 Resp: 18 BP: 145/66 Temp: 36.3 ??C (97.3 ??F) Weight: 84.8 kg (187 lb) GENERAL- no acute distress, comfortable NEURO- alert and oriented, normal balance and gait PSYCH- Mood and affect appropriate HEENT- Pupils equal, EOMs grossly normal, mucous membranes moist LYMPHATICS- no palpable lymphadenopathy CARDIO- regular rate and rhythm RESP- nonlabored respirations GI- abdomen soft, nontender, nondistended Dressing/wound: dressing c/d/i Immobilization: Splint intact, tolerating well Sensation: No sensation at middle finger tip, diminished sensation in RF and SF at fingertip Motor: Wiggles fingers in splint Perfusion: Fingers WWP, brisk cap refill Diet: Diet Instructions Adult Discharge Diet Diet Type: Return to previous diet Please continue to eat a diet high in protein to help with further healing of your injuries. Discharge Disposition: Final discharge disposition not confirmed Code Status at Discharge: Full Activity: Activity Instructions Discharge Activity: Driving restrictions -Do not drive until you follow up with orhto hand, or while taking pain medications. Discharge Activity: Lifting restrictions -Do NOT lift anything with your left arm/hand. No pushing, pulling with the left arm/hand. Discharge Activity: Walking -You may walk as tolerated. activity as tolerated Right Upper ExtremityWeight bearing as tolerated Left Upper ExtremityNon-weight bearing Right Lower ExtremityWeight bearing as tolerated Left Lower ExtremityWeight bearing as tolerated Discharge Medications: Your medication list START taking these medications acetaminophen 500 mg capsule 1,000 mg, oral, Every 6 hours PRN dipyridamole 25 mg tablet 25 mg, oral, 3 times daily Commonly known as: PERSANTINE polyethylene glycol 17 gram packet 17 g, oral, Daily Commonly known as: MIRALAX Start taking on: July 25, 2022 CHANGE how you take these medications aspirin 325 mg tablet 325 mg, oral, Daily What changed: medication strength how much to take CONTINUE taking these medications amLODIPine 5 mg tablet 5 mg, oral, Daily Commonly known as: NORVASC losartan 100 mg tablet 100 mg, oral, Daily Commonly known as: COZAAR pravastatin 40 mg tablet 40 mg, oral, Daily Commonly known as: PRAVACHOL RABEprazole DR 20 mg EC tablet 20 mg, oral, Daily Commonly known as: ACIPHEX Discharge Instructions: Other Instructions Call provider for: increased temperature -Temperature greater than 101 degrees F Call provider for: nausea, vomiting, diarrhea -If you have persistent nausea, vomiting or diarrhea that does not stop Call provider for: severe uncontrolled pain Call provider if: you feel dizzy, very tired or like you may faint Care Instructions: Incisions -Keep incisions clean and dry Care order/instruction - Braces Please do not get the splint on your arm wet. You may bath, but please make sure you have someone to help you to prevent further injury or soiling of the splint. Discharge Wound Type: Stitches/[place] -Stitches/jonel will be removed at your next appointment Follow-Up: [address] York (we will schedule appt) Discharge instructions - Following medications have been stopped: Aspirin 81mg daily has been stopped, and you are to take Aspirin 325mg daily. Special Instructions Please follow up in 5 days of occupational therapy, which has been scheduled by the orthopaedic team. Call your Surgeon???s office from 8:00am-3:30pm at for the following: * You have a fever of more than 101.5 degrees. * You have nausea, vomiting or diarrhea that does not stop. * You have pus or bad smelling drainage from your wound. * The pain in your stomach is very bad or gets a lot worse. * You feel dizzy, very tired or like you may faint. * You have hard time breathing. * You have any other concerns or questions Follow up Contact Information for Follow-ups External Order Next Steps: Follow up Comments: Initiation of zone 2 flexor tendon rehab protocol for the middle finger FDP Questions: Reason for Referral: OT Evaluate and Treat Therapy options discussed with patient?: Yes Location provided for therapy services is: Patient requested/Patient preferred Please select the performing region: External Order # of visits: 24 Referral Status: External - Ready to Schedule Future Appointments Date Time Provider Department Center 08/06/2022 9:20 AM [facility] I spent 60 minutes completing this hospital discharge. Tequila Burdick NP 07/24/22 CC: Unknown, Notinfile Cosigned by Grecia Vasquez MD at 07/24/2022 5:44 PM CDT Associated attestation - Grecia Vasquez MD - 07/24/2022 5:44 PM CDT I have seen and examined the patient on the day of discharge. I agree with the findings and plan ofcare as discussed with the INSIDE BARREL LATHE OPERATOR/PA. Grecia Vasquez MD Acute and Critical Care Surgery [facility] [employer] [facility] documented in this encounter Medications at Time of Discharge amLODIPine (NORVASC) 5 mg tabletIndications :hypertension Take 1 tablet (5 mg total) by mouth 2 (two) times a day 12/03/2020 pravastatin (PRAVACHOL) 40 mg tabletIndications :hyperlipidemia Take 2 tablets (80 mg total) by mouth nightly 02/15/[address] (ACIPHEX) 20 mg EC tabletIndications :Stress Ulcer Prophylaxis Take 1 tablet (20 mg total) by mouth as needed valsartan (DIOVAN) 160 mg tabletIndications :hypertension Take 1 tablet (160 mg total) by mouth every morning 09/16/2021 acetaminophen 500 mg capsule Take 2 capsules (1,000 mg total) by mouth every 6 (six) hours as needed for pain 07/24/2022 4 amLODIPine (NORVASC) 5 mg tablet Take 1 tablet (5 mg total) by mouth daily 3 aspirin 325 mg tablet Take 1 tablet (325 mg total) by mouth daily 30 tablet 07/24/2022 3 dipyridamole (PERSANTINE) 25 mg tablet Take 1 tablet (25 mg total) by mouth 3 (three) times a day 90 tablet 07/24/2022 3 levothyroxine (SYNTHROID) 25 mcg tabletIndications :hypothyroidism Take 1 tablet (25 mcg total) by mouth every other day 04/09/2022 4 losartan (COZAAR) 100 mg tablet Take 1 tablet by mouth daily 12/03/2020 3 losartan (COZAAR) 100 mg tablet Take 1 tablet (100 mg total) by mouth daily 3 oxyCODONE (ROXICODONE) 5 mg immediate release tabletIndications :Pain Take 1 tablet (5 mg total) by mouth every 4 (four) hours as needed for pain 20 tablet 07/24/2022 3 polyethylene glycol (MIRALAX) 17 gram packetIndications :constipation Take 1 packet (17 g total) by mouth daily 07/25/2022 3 pravastatin (PRAVACHOL) 40 mg tablet Take 1 tablet (40 mg total) by mouth daily [address] (ACIPHEX) 20 mg EC tablet TAKE 2 TABLETS BY MOUTH ONCE DAILY. TAKE 30-60 MINUTES BEFORE SUPPER. 11/06/2020 3 documented as of this encounter Ordered Prescriptions Prescription Sig Dispense Quantity Refills Last Filled Start Date End Date oxyCODONE (ROXICODONE) 5 mg immediate release tabletIndications: Pain Take 1 tablet (5 mg total) by mouth every 4 (four) hours as needed for pain 20 tablet 07/24/2022 3 polyethylene glycol (MIRALAX) 17 gram packetIndications: constipation Take 1 packet (17 g total) by mouth daily 07/25/2022 3 dipyridamole (PERSANTINE) 25 mg tablet Take 1 tablet (25 mg total) by mouth 3 (three) times a day 90 tablet 07/24/2022 3 aspirin 325 mg tablet Take 1 tablet (325 mg total) by mouth daily 30 tablet 07/24/2022 3 acetaminophen 500 mg capsule Take 2 capsules (1,000 mg total) by mouth every 6 (six) hours as needed for pain 07/24/2022 4 documented in this encounter Discharge Disposition Disposition Code Departure Means Destination Comment s Discharge to home or self care documented in this encounter Progress Notes * Christina Garcia RN - 07/24/2022 3:04 PM CDT 07/24/22 1111 Discharge Summary Chart reviewed For Medical Necessity Does patient have a planned readmission to hospital planned? No Discharge Disposition Private residence Equipment/Provider Needs No Home Needs Identified Discharge Additional Assistance Does the patient need discharge transport arranged? No Post Discharge Care Provider Post Discharge Care Plan Next level of care provider has access to complete EMR Per medical team, patient is medically stable for discharge at this time. Follow up appointment hasbeen scheduled. Transportation will be provided by family. No other needs identified at this time. Patient and/or family are agreeable with the plan. If any further discharge needs arise, please contact the covering binder caser. * Elaine Blandon - 07/24/2022 1:18 PM CDT Occupational Therapy Occupational Therapy Initial Assessment NOTE:This is a summary note for the coyne assessments completed during the evaluation session. For full details, review chart review for all flowsheets documented on by this Occupational Therapist on this date. Vital signs documented in vital signs flowsheet. Assessment Assessment Barriers to Discharge: None Plan Plan Plan: Discharge, If this is the last note, consider this the discharge summary OT Recommendation and Plan Recommendation/Plan OT Recommendation: Home with intermittent assist OT Frequency during current admission: Discharge from this Service Comments: Evaluation this date consisted of functional mobility/transfers, simulated grooming in standing, toileting, and LB dressing. Pt declined upper body dressing stating he has no concerns with task completion upon discharge. Pt performed all mobility and ADLs at a modified level of independence. Pt reports no assistance available upon discharge, but son to bring him home following discharge. Discussed d/c recs to home with intermittent assistance; pt agreeable to OT POC. No further OT needed. Progress during current admission: Discontinue OT OT - OK to Discharge: Yes OT Evaluation Complete: Yes General Information General Chart Reviewed: Yes Session Type: Evaluation (And discharge) OT Received On: 07/24/22 Safe Environment: Arm band checked, Patient found in supine, Gait belt utilized not utilized, see comment (Pt initiated transfer prior to donning gait belt.) Subjective: Agreeable to Therapy Family/Caregiver Present: No Occupational Therapy-Patient Goal: Return to home. Precautions Precautions Precautions: None Weight Bearing Restrictions: Yes LUE Weight Bearing: Non-weight bearing Precaution Comments: Verbally reviewed NWB status prior to ADLs and mobility. Pt verbalized and demonstrated understanding. Home Living Home Living Type of Home: House Home Layout: One level Home Access: Stairs to enter without rails Entrance Stairs-Rails: None Entrance Stairs-Number of Steps: 2 Bathroom Shower/Tub: Walk-in shower without threshold Bathroom Toilet: Standard Bathroom Accessibility: Accessible Home Mobility Equipment: None Additional Comments: Pt reports no DME use at baseline Prior Function Prior Function Level of [place]: Independent with ADLs, Independent functional transfers, Independent with ambulation, Independent with homemaking with ambulation Lives With: Alone Receives Help From: Family (Son) Driving: Yes ADL Assistance: Independent Instrumental ADL (IADL) Assistance: Independent 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 Leisure : Hobbies-yes (Comment) (Biking) Fall within the last 6 months: No Activities of Daily Living Grooming Grooming: Where assessed: Standing at sink Grooming: Level of assistance: Modified independent (Mod I task; Independent balance) Grooming: Assistance with: Increased time to complete LE Dressing LE Dressing: Where assessed: Edge of bed LE Dressing: Level of assistance: Modified independent (Mod I task; Independent balance) LE Dressing: Assistance with: Increased time to complete Toileting Toileting: Where assessed: Toilet Toileting: Level of assistance: Modified Independent (Mod I task; Independent balance) Toileting: Assistance with: Increased time to complete Toilet Transfers Toilet Transfer From: Bed Toilet Transfer Type: To and from Toilet Transfer to: Standard toilet Toilet Transfer Technique: Ambulating Toilet Transfer: Equipment: No device Toilet Transfers: Modified independence Toilet Transfers Comments: Use of RUE for force production during transfer. Pain Pain Assessment Pain Assessment: 0-10 Pain Score: 4 Pain Type: Surgical pain Pain Location: Hand Pain Orientation: Left Pain Interventions: Repositioned Cognition Cognition Overall Cognitive Status: Within Functional Limits Arousal/Alertness: Alert, Appropriate responses to stimuli Attention Span: Appears intact Memory: Appears intact Current communication: Appears Intact Orientation : Oriented X4 (person, place, time, situation) Following Commands: Follows all commands and directions without difficulty Safety Judgment: Good awareness of safety precautions Awareness of Errors: Good awareness of errors made Insight: Fully aware of deficits Problem Solving: Able to problem solve independently Compliance/Behavior: Easy to engage Perseveration: Not present Short Blessed Test What year is it now?: Correct What month is it now?: Correct Repeat this name and address after me: Donovan Lomax [address] [place] [address] Without looking at the clock, tell me what time it is: Correct-within one hour Count aloud backwards from 20-1: 0 Errors Say the months of the year backwards in reverse order: 0 Errors Repeat the name and address I asked you to remember: 2 Errors Short Blessed Total Score: 4 Short Blessed Comments: Normal Cognition 6 Clicks Daily Activity - 6 Clicks Putting on and taking off regular lower body clothing: None Bathing: None Toileting: None Putting on and taking off upper body clothing: None Personal Grooming: None Eating Meals: None Total Score (range 6-24): 24 Score Interpretation: 24 Balance Static Sitting Balance Static Sitting-Balance Support: Unilateral upper extremity supported, Feet supported (RUE supportedon bed) Static Sitting-Sitting Surface: Bed Static Sitting-Level of Assistance: Independent Dynamic Sitting Balance Dynamic Sitting-Balance Support: No upper extremity supported, Feet supported Dynamic Sitting-Balance: Lateral lean, Forward lean, Reaching for objects (LB dressing) Dynamic Sitting-Sitting Surface: Bed Dynamic Sitting-Level of Assistance: Independent Static Standing Balance Static Standing-Balance Support: No upper extremity supported Static Standing-Standing Surface: Floor Static Standing-Level of Assistance: Independent Dynamic Standing Balance Dynamic Standing-Balance Support: No upper extremity supported Dynamic Standing-Balance: Lateral lean, Forward lean, Reaching for objects (Grooming in standing) Dynamic Standing-Standing Surface: Floor Dynamic Standing-Level of Assistance: Independent Transfers Transfers Transfer: Yes Transfer 1 Transfer From 1: Sit Transfer Type 1: To and from Transfer to 1: Stand Technique 1: (Ambulating) Transfer Device 1: No device Transfer Level of Assistance 1: Modified Independent Trials/Comments 1: Use of RUE for force production. Bed Mobility Bed Mobility Bed Mobility: Yes Bed Mobility 1 Bed Mobility From 1: Supine Bed Mobility Type 1: To and from Bed Mobility to 1: Edge of bed Level of Assistance 1: Modified Independent Bed Mobility Comments 1: HOB elevated. Increased time to complete task. RUE Assessment RUE Assessment RUE Assessment: Within Functional Limits LUE Assessment LUE Assessment LUE Assessment: Exceptions to WFL LUE Comments: Wrist and hand ROM limited by splint. Elbow and shoulder WFL. Safe Environment End of Session Safe Environment End of Therapy Session: Patient left supine in bed, Call light within reach, Overbed table within reach, Bed in lowest position with wheels locked Other Comments Other Comments Comments: Evaluation this date consisted of functional mobility/transfers, simulated grooming in standing, toileting, and LB dressing. Pt declined upper body dressing stating he has no concerns with task completion upon discharge. Pt performed all mobility and ADLs at a modified level of independence. Pt reports no assistance available upon discharge, but son to bring him home following discharge. Discussed d/c recs to home with intermittent assistance; pt agreeable to OT POC. No further OT needed. OT Goals Multi-Disciplinary Problems (from Occupational Therapy) Active Problems Not on file Reviewed By Lance Mathew RN 07/24/22 0932 Cosigned by Cassandra Wisdom OT at 07/24/2022 4:44 PM CDT * Vanesa Rose MD - 07/24/2022 9:16 AM CDT Orthopaedic Hand/Flap Service Daily Progress Note Admit Date: 07/23/2022 Hospital Day: 1 Att/Fellow: Belen/Myke Dx: LEFT hand Volar Zone 2 laceration with injury NV bundle to MF and ulnar side of PF Procedure(s): S/p left hand i&d, repair of FDP, ulnar and radial digital nerves to middle finger, ulnar digital artery to middle finger, ulnar digital nerve to ring finger, radial and ulnar digital nerves to the small finger, placement of integra graft on ulnar aspect of left index finger Interval History: 07/24: POD1 from left hand i&d, repair of FDP, ulnar and radial digital nerves to middle finger,ulnar digital artery to middle finger, ulnar digital nerve to ring finger, radial and ulnar digitalnerves to the small finger, placement of integra graft on ulnar aspect of left index finger. Hgb 9.4, Cr 1.3 (baseline). Exam: Wiggles fingers in dorsal blocking splint, fingers WWP. Plan: Will dc today, start OT in 5 days and f/up with Dy in 1 week. Objective Vitals: 24hr Min/Max: Temp Min: 36 ??C (96.8 ??F) Max: 36.9 ??C (98.4 ??F) Pulse Min: 49 Max: 78 BP Min: 104/65 Max: 177/63 Resp Min: 7 Max: 21 SpO2 Min: 96 % Max: 100 % I/O last 2 completed shifts: In: 2200 [I.V.:2200] Out: 2150 [Urine:2100; Blood:50] No intake/output data recorded. Physical Exam: Gen: No acute distress Alert and oriented: x3 Extremity LUE Dressing/wound: dressing c/d/i Immobilization: Splint intact, tolerating well Sensation: No sensation at middle finger tip, diminished sensation in RF and SF at fingertip Motor: Wiggles fingers in splint Perfusion: Fingers WWP, brisk cap refill Lab/Diagnostic Review: Recent Labs Lab Units 07/24/22 0658 07/23/22 2030 07/23/22 1124 SODIUM mmol/L 140 -- 139 POTASSIUM PLASMA mmol/L 4.1 -- 4.7 CHLORIDE mmol/L 104 -- 104 CO2 mmol/L 29 -- 25 ANIONGAP mmol/L 7 -- 10 GLUCOSE mg/dL 118 -- 155 POC GLUCOSE MONITOR -- < > -- BUN SERUM mg/dL 20 -- 28* CREATININE mg/dL 1.30 -- 1.38* CALCIUM mg/dL 9.0 -- 10.1 WBC K/cumm 10.3* -- 10.0* HEMOGLOBIN, POC -- < > -- HEMOGLOBIN g/dL 9.4* -- 11.4* HEMATOCRIT % 28.2* -- 34.1* HEMATOCRIT POC -- < > -- PLATELETS K/cumm 178 -- 225 NEUTROS PCT % -- -- 67.0 LYMPHS PCT % -- -- 21.4 MONOS PCT % -- -- 9.6 EOS PCT % -- -- 1.1 APTT sec -- -- 22* INR -- -- 0.9 < > = values in this interval not displayed. Micro: No results found for: MICROBIOLOGY Assessment/Plan: 74 y.o. male p/w the above injuries now s/p above repairs. Ok to dc from hand perspective. WB Status: NWB LUE Immobilization: Splint until follow-up Therapy: None Activity: As tolerated Drain: n/a DVT ppx: Flap protocol (standard): ASA 325mg daily, persantine 25mg TID x30d, daily lovenox 40mg qpm while in house Antibiotics: Ancef 1-2gm IV Q8hrs for 24 hours postoperative Cultures: None Diet: Regular Additional Needs: None Ortho Hand/Flap will continue to follow this patient's hospital course. Dispo: Ok to dc today, f/up in 5 days for OT Follow-Up: [address] York (we will schedule appt) Naomi Rose MD PGY-3 Orthopedic Surgery Resident [facility] Please call with questions during daytime. See below for overnight issues. If you know the resident's name on the appropriate orthopaedic surgery team, please use [email or web address] to page resident directly. If questions arise and the appropriate resident can't be reached or you are calling overnight, please contact [phone] ([place]- 7:30 PM - 6:30 AM - Floor Resident) or [phone] (24 hours/day - Consult Resident) Cosigned by Vimal Stringer MD at 09/02/2022 12:32 PM CDT * Robert Lomax BRachel - 07/23/2022 11:45 AM CDT Chaplain Edgar Lomax MDiv [facility] Spiritual Care Triage: [phone] 07/23/22 1145 Time Spent Start Time 1145 Stop Time 1215 Time Calculation (min) 30 min Patient Spiritual Assessment Spirituality Assessed Yes Jewish Affiliation [employer] Active in [facility] Yes Clinical Encounter Type Visited With Patient Response Type Crisis visit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 continuous telemetry, continuous pulse oximetry and serial bedside patient exams advanced wound care prepared for emergent procedure/operating room I provided emergent necessary critical care medicine services to this patient. I ordered and reviewed test results and/or imaging studies. I spent time discussing the management of this critically ill patient with consultants and the medical staff. I spent time discussing the management and therapeutic options for this critically ill patient with the patient themselves or with the appropriate designated surrogate decision-maker. I spent time documenting in the medical record. Date of service: 07/23/2022 Myla Rodriguez MD 07/25/22 1437 Myla Rodriguez MD 07/30/22 1625 * Plan of Care - Christina Garcia RN - 07/24/2022 11:16 AM CDT Patient notified CM: : 1945 [address] [place] [address] SSN: [id number] Patient stated INS: Medicare A&B * Initial Assessments - Christina Garcia RN - 07/24/2022 11:12 AM CDT CM Initial Assessment Interview Note Information Obtained From: Patient (In Room) (07/24/22 105) Admission Source: Non-health care facility point of origin. Impression: 76 year old male here d/t left hand stuck in table saw partially amputating digits 2-5 Plan Includes: Role of CM explained. CM will continue to assist pt with anticipated home needs prior to d/c from hospital. Primary Source of Transportation: Family Does the patient need discharge transport arranged?: No (07/24/22 1111) Health Insurance Coverage: Medicare A&B Prescription Coverage: yes Pharmacy: No Pharmacies Listed Primary Care Provider: Unknown, Notinfile Prior to Admission: Primary Caregiver: Self Caregiver Name: Glen Ramirez Relationship to patient: Son Support System: Children Support system contact info (name, phone, availablity): Glen Ramirez (son) Home Care Services: No Durable Medical Equipment: None Living Arrangements: Alone Type of Residence: Private residence Steps in home?: Yes, Outside of home Number of steps outside: 2 steps (07/24/22 1058) Potential discharge needs include: Pending Recommendations Dialysis: no Behavioral Health Services: Behavioral Health Services: No (07/24/22 1058) Patient expects to be Discharged to: Private residence, (07/24/22 1058) Additional Information: lives home alone with good support from family and friends. Pt information verified with the pt. Pt reports that he was independent prior to this hospitalization. Patient's Identified Problem/Goal Problem: Ensure acute medical needs are met and that patient has a safe discharge plan. Goal: Secure a discharge plan that patient/family are agreeable with and ensure patient has continuum of care. Case management will follow for discharge planning and send referrals as needed. Goals include: To assure continuity of care, To maximize coping skills, To assure patient is in a safe environment and To assure access to community resources. Plan includes: 1. Collaboration with patient, MD, direct care nurse, Speech Communication Professor, and other members of the health care team to assure needed interventions completed. 2. Return patient to optimal level of self-care post discharge. 3. Wheel Buffer will follow for Discharge Planning - interventions as needed 4. Anticipated level of care at discharge 5. Planned Discharge Disposition Based on a comprehensive family assessment, assistance with instrumental activities of daily livingafter discharge will be provided by (sylvester) Glen. Through the course of our work I determined that the Glen possesses the skill and ability to provide and monitor the care of the patient when he or she returns home. Glen has the capacity to provide/monitor/arrange for the care of the patient. Finally, we determined that Glen has the knowledge of available resources and that combining them with their existing resources will suffice to sustain andcare for the patient when he or she returns home. The treatment team is aware of this information. All are in agreement with the aftercare plan. Christina Garcia RN * Plan of Care - Lance Mathew RN - 07/24/2022 9:33 AM CDT Goals: Clinical Goals for the Shift: dc planning, rest, ambulate, vss Summary: rest, vss, dc planning, PT/OT, pain control Problem: Health Behavior: Goal: Understanding of discharge needs will improve Outcome: Progressing Problem: Activity: Goal: Mobility will improve Outcome: Progressing Problem: Lack of Knowledge: Goal: Understanding of ways to prevent future skin breakdown will improve Outcome: Progressing Goal: Ability to identify appropriate dietary choices will improve Outcome: Progressing Problem: Nutritional: Goal: Dietary intake will improve Outcome: Progressing Goal: Ability to maintain a balanced intake and output will improve Outcome: Progressing Problem: Skin Integrity: Goal: Risk for impaired skin integrity will decrease Outcome: Progressing Goal: Ability to demonstrate warm and dry skin will improve Outcome: Progressing Goal: Circulation will improve to fullest extent possible Outcome: Progressing Problem: Lack of Knowledge: Goal: Ability to develop a pain control plan will improve Outcome: Progressing Goal: Ability to identify pain intensity on a pain scale and rate it consistently will improve Outcome: Progressing Goal: Ability to notify healthcare provider of pain before it becomes unmanageable or unbearable will improve Outcome: Progressing Problem: Medication: Goal: Satisfaction with pain management regimen will improve Outcome: Progressing Problem: Sensory: Goal: Ability to identify factors that increase the pain will improve Outcome: Progressing Goal: Pain level will decrease Outcome: Progressing * Plan of Care - Bhavya Rushing RN - 07/24/2022 3:54 AM CDT Goals: Clinical Goals for the Shift: pain control, rest, ambulate, vss, nvs Summary: pt well rested and pain is well regulated * Op Note - Vimal Stringer MD - 07/23/2022 7:55 PM CDT Operative Report SURGEON: Vimal Glover MD SURGICAL TEAM: Surgeon(s) and Role: * Vimal Glover MD - Primary * Vimal Stringer MD - Fellow DATE OF SURGERY : 07/23/2022 PREOPERATIVE DIAGNOSIS: 1. Left hand table saw injury 2. [...] 13. Small finger ulnar digital artery laceration POSTOPERATIVE DIAGNOSIS: 1. Left hand table saw injury 2. Ulnar-sided left index finger soft tissue avulsion injury measuring 4 x 2 cm with exposed tendon 3. Middle finger radial digital artery injury 4. Middle finger radial digital nerve injury 5. Middle finger Flexor digitorum profundus tendon laceration, zone 2, 80% 6. Middle finger flexor digitorum superficialis tendon laceration, zone 2, 80% of radial slip 7. Middle finger ulnar digital artery laceration 8. Middle finger ulnar digital nerve laceration 9. Ring finger ulnar digital artery laceration 10. Ring finger ulnar digital nerve laceration 11. Small finger radial digital nerve laceration 12. Small finger ulnar digital nerve laceration 13. Small finger ulnar digital artery laceration PROCEDURE: Left hand exploration Left hand irrigation and excisional debridement Repair of middle finger radial digital nerve with allograft Repair of middle finger ulnar digital nerve with allograft Repair of middle finger ulnar digital artery, primary repair Repair of middle finger flexor digitorum profundus tendon in zone 2 Repair of ring finger ulnar digital nerve with allograft Repair of small finger radial digital nerve with allograft Repair of small finger ulnar digital nerve according to Neuraptive randomization Placement of Integra graft for coverage of left index finger soft tissue injury measuring 4 cm x 2 cm Use of floor mounted operating room microscope INDICATION FOR PROCEDURE: Patient is a 76-year-old male who presented to the [facility] emergency department after sustaining a injury to his left hand from a skill saw earlier today. 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 Examination in the emergency department demonstrated perfusion to all digits including the middle finger with good capillary refill and a dopplerable radial digital artery to the middle finger likely via communication with the dorsal circulation system. He had altered sensation in the middle ring and small fingers as demonstrated by abnormal two-point discrimination. He is indicated forirrigation and debridement, exploration, repair of all damaged structures, possible allograft versus autograft. Patient was consented separately to be enrolled in the Neuraptive study protocol. All risks benefits and alternatives to both the surgical procedure and reactive clinical study were discussed at length with the patient including risk of bleeding, infection, damage to surrounding neurovas cular structures, need for reoperation, postoperative neuroma persistent pain, stiffness. All questions were answered to the patient's satisfaction and he consented to proceed with both surgery as well as enrollment in the Neuraptive study. ANESTHESIA: Choice IMPLANTS: Implant Name Type Inv. Item Serial No. Pipe Recovery Specialist Lot No. [id number] No. Used Action Contents First GEM CARTRIDGE MICRO CLIP INTERNAL TITANIUM HEMOSTATIC [id number] - [id number] Clip Contents First [place] Cartridge Micro Clip Internal Titanium Hemostatic [id number] Bulu Box [id number] Left 6 Implanted AX[employer]EN [employer] AVANCE 2-3MM 50MM ALLOGRAFT MULTIPLE CLEAN GRAFT SOFT TISSUE [id number] - [id number] AXOGENINC Avance 2-3mm 50mm Allograft Multiple Clean Graft Soft Tissue [id number] Axogen Inc [id number] Left 1 Implanted Contents First HEMOCLIP SUPERFINE CLIP INTERNAL [id number] - [id number] Clip Contents First Hemoclip Superfine Clip Internal [id number] Syncing.Net [id number] Left 6 Implanted Contents First GEM CARTRIDGE MICRO CLIP INTERNAL TITANIUM HEMOSTATIC [id number] - [id number] Contents First [place] Cartridge Micro Clip Internal Titanium Hemostatic [id number] Adeptence Allian [id number] Left 1 Implanted Contents First HEMOCLIP SUPERFINE CLIP INTERNAL [id number] - [id number] Contents First Hemoclip Superfine Clip Internal [id number] [employer] [id number] Left 1 Implanted [employer] MELISSA INTEGRA 2X2IN BILAYER MATRIX DRESSING BIOLOGICAL BOVINE COLLAGEN LATEX FREE [id number] - [id number] INTEGRProPublica Integra 2x2in Bilayer Matrix Dressing Biological Bovine Collagen Latex Free [id number] AppBrick Melissa [id number] Left 1 Implanted OPERATIVE DETAILS Estimated Blood Loss: 50 mL Urine output : See nursing report Intraoperative Fluids: See anesthesia report Blood/Blood Products Transfused: None Specimens: Order Name Source Comment Collection Info Order Time CBC WITHOUT DIFFERENTIAL 07/23/2022 8:33 PM BASIC METABOLIC PANEL 07/23/2022 8:33 PM MAGNESIUM 07/23/2022 8:33 PM PHOSPHORUS 07/23/2022 8:33 PM PROCEDURE: Patient was met in the preoperative holding area where the consent was reviewed and the left hand was marked. The patient was transported to the operating room and laid supine on the operating room table where general anesthesia was induced without complication. Nonsterile tourniquets were applied to the left upper extremity as well as the left lower extremity in preparation for possible vein autograft, both the left upper extremity and left lower extremity were prepped and draped in the usual sterile fashion. Prior to procedure time-out performed verifying the patient's identity, site, laterality, procedure to be performed, ASA classification, appropriate antibiotic prophylaxis fire risk. No discrepancies were identified and all were in agreement to proceed. The tourniquets were never inflated throughout the duration of the procedure. We turned our attention to the left hand. We began with exploration and a thorough irrigation and debridement. We worked through the traumatic wound to explore the middle ring and small finger. We identified the injuries as noted above including complete laceration of the radial digital nerve and artery to the middle finger, 8% laceration of the flexor digitorum profundus tendon in zone 2, 80% laceration of the flexor digitorum superficialis radial slip in zone 2, complete laceration of the ulnar digital nerve and artery to the middle finger. The radial digital nerve and artery to the ring finger were found to be intact without evidence of injury, the ulnar digital nerve and artery to the ri ng finger were found to be completely transected. The flexor tendon sheath to the ring finger was found to be intact without evidence of injury to the flexor tendons to the ring finger. The radial digital artery to the small finger was found to be intact, the radial digital nerve to the small finger was found to be lacerated, the ulnar digital artery and nerve to the small finger were also found to be lacerated. The flexor tendon sheath to the small finger had a small area of opening, however both the flexor digitorum profundus tendon and flexor digitorum superficialis tendon were carefully inspected and delivered out of the wound and found to have no evidence of laceration. On the index finger, there was found to be a soft tissue avulsion injury along the distal ulnar aspect of the indexfinger measuring approximately 4 x 2 cm with some exposed flexor tendon distally but without evidence of flexor tendon injury distally. Once we had identified all of the critical structures, a excisional debridement was performed using combination of scalpel, tenotomy, and rongeur to sharply excise all grossly contaminated and nonviable skin subcutaneous tissue fascia and tendon. Once we are satisfied with the quality of our debridement, 3 L of normal saline were used to copiously irrigate the wound. We turned our attention to repair of the damaged structures. We began with repair of the flexor digitorum profundus tendon to the middle finger. This was done using a 4-0 looped Supramid to perform aWinters Gelberman 8-strand core repair followed by a running 6 0 epitendinous repair. We vented thedistal aspect of the A2 mame as well as the C1 and A3 pulleys to allow for smooth tendon gliding.The decision was made to not perform a repair of the laceration of the radial slip of the flexor digitorum superficialis tendon, the ulnar slip of the flexor digitorum superficialis to the middle finger was found to be intact. Following repair, the finger was taken through range of motion and therewas found to be no catching throughout the range of motion. We turned our attention to repair of the ulnar digital artery to the middle finger. Again, the middle finger remained well perfused throughout the case without elevation of the tourniquet. We cut back on the ulnar digital artery proximally and found there to be good flow. This was clamped with an [place]. We cut back on the distal aspect of the ulnar digital artery and also found good return of flow consistent with good perfusion from the dorsal circulation system given that the radial digital artery had also been transected. Despite the fact that the finger was well-perfused, we did decide torepair the ulnar digital artery as it was found to be in reasonable condition and would help ensure adequate perfusion to the middle finger. The microscope was brought in and the tissue was carefullycleaned. A 9 0 nylon was used to perform a standard repair of the artery in a simple interrupted fashion. The Acland clamps were removed and there was found to be excellent flow through the digital artery without excessive bleeding. A strip test distally demonstrated patency across the anastomosis site. The radial digital artery to the middle finger was ligated using a [place] clip both proximally and distally. We turned our attention to repair of the digital nerve injuries which were all performed with the use of the floor mounted microscope. All repairs were performed with the fingers in full extension john tension free fashion. We began radially at the radial digital nerve of the middle finger. The nerve and here were found to be contused and not amenable to primary repair. As such they were cut backto healthy extruding fascicles and a nerve allograft was used to bridge the gap. A standard 2 stitch repair was performed both proximally and distally using 9 0 nylon. There was no undue tension. Theulnar digital nerve to the middle finger was found to be in similar condition, not amenable to primary repair. Again, the nerve was cut back to healthy extruding fascicles and allograft was used to bridge the gap. A standard 2 stitch repair was performed both proximally and distally using 9 0 nylon. We turned our attention to repair of the ulnar digital nerve to the ring finger. The nerve was found to be contused and not amenable to primary repair. The nerve was cut back to healthy extruding fascicles and an allograft was used to bridge the gap. A standard 2 stitch repair was performed both proximally and distally using 9 0 nylon. Given that the radial digital artery was intact to the ring finger, the ulnar digital artery was ligated using a [place] clip both proximally and distally. We turned our attention to the small finger. The radial digital nerve to the small finger was almost amenable to primary repair, however it was still just slightly to contused to perform a primary repair, theradial digital nerve was cut back to healthy extruding fascicles and a small allograft was used to help bridge the gap. A 9 0 nylon was used to repair the proximal and distal aspects of the allograftin a standard interrupted fashion. Finally, we turned our attention to repair of the small finger ulnar digital nerve. This nerve was found to be amenable to primary repair and therefore was randomized and repaired according to the Neuraptive study protocol. Given that the radial digital artery to the small finger was intact, the ulnar digital artery to the small finger was ligated using a [place] clip both proximally distally. Lastly, we turned our attention to grafting of the soft tissue defect over the distal ulnar aspect of the index finger. This measured approximately 4 x 2 cm. The wound had previously been debrided asdescribed above. An Integra graft was placed over the area and sutured in place using chromic. The wounds were again copiously irrigated with normal saline. Wounds were primarily closed using nylon suture. All counts were correct at the conclusion of the case. There were no complications during this case. The patient was dressed with Xeroform 4x4s and placed in a well-padded dorsal blocking splint. He was awoken from anesthesia without complication and transported to the postanesthesia care unit in stable condition. Complications: None Condition on Discharge from the operating room was stable Postoperative plan Patient will be admitted to the orthopedic surgery service postoperatively for pain control. He will be nonweightbearing to the left upper extremity for the next 8 weeks given his flexor tendon injury to the middle finger FDP. We will initiate a zone 2 flexor tendon rehab protocol within 5 days. Patient will be discharged from the hospital later today assuming his pain is controlled. He will be discharged on aspirin and persantine x 4 weeks for his arterial repair to the ulnar digital artery ofthe middle finger. We will see him back in 1 week time for his 1st postop follow-up with Dr. Jaylen petty Neuraptive protocol. Vimal Stringer MD Date: 07/24/2022 Time: 12:20 AM No Resident involved on case Cosigned by Vimal Glover MD at 07/24/2022 10:21 PM CDT Associated attestation - Vimal Glover MD - 07/24/2022 10:21 PM CDT I was present for the coyne portion of the procedure: The coyne portions were exploration of the hand, repair of all nerves and repair of the digital artery to the middle finger as well as repair of the FDP tendon to the middle finger and debridement of the hand. Dr. Stringer was immediately available for the remainder of the procedure. documented in this encounter Plan of Treatment Scheduled Orders Name Type Priority Associated Diagnoses Orde r Schedule ECG 12 lead ECG STAT Once for 1 Oc currences starting 07/23/2022 until 07/23/2022 documented as of this encounter Procedures Procedure Name Priority Date/Time Associated Diagnosis Comments MO CRITICAL CARE ILL/INJURED PATIENT INIT 30-74 MIN Routine 07/24/2022 3:09 PM CDT EGFR Routine 07/24/2022 6:58 AM CDT CBC WITHOUT DIFFERENTIAL Routine 023 6:58 AM CDT PHOSPHORUS Routine 07/24/2022 6:58 AM CDT MAGNESIUM Routine 07/24/2022 6:58 AM CDT BASIC METABOLIC PANEL Routine 07/24/2022 6:58 AM CDT POC BLOOD GAS AND CHEMISTRIES, VENOUS Routine 07/23/2022 8:34 PM CDT POC BLOOD GAS AND CHEMISTRIES, ARTERIAL Routine 07/23/2022 8:30 PM CDT REPAIR TENDON - HAND 07/23/2022 7:14 PM CDT Injury of left hand, initial encounter Case Notes 6u at [id number] study caseNot wanting to roll back until 1800 REPAIR NERVE 07/23/2022 7:14 PM CDT Injury of left hand, initial encounter Case Notes 6u at 1418Special study caseNot wanting to roll back until 1800 B CHECK SAMPLE STAT 07/23/2022 11:46 AM CDT XR HAND LEFT 3 OR MORE VIEWS ED 07/23/2022 11:30 AM CDT POCT LACTATE - DEVICE Routine 07/23/2022 11:27 AM CDT EGFR STAT 07/23/2022 11:24 AM CDT DIFFERENTIAL AUTO STAT 07/23/2022 11:24 AM CDT EXTRINSIC THROMBOELASTOMETRY (EXTEM) STAT 07/23/2022 11:24 AM CDT THROMBOCYTE INHIBITED FIBRINOGEN (FIBTEM) STAT 07/23/2022 11:24 AM CDT CBC WITH AUTO DIFFERENTIAL STAT 07/23/2022 11:24 AM CDT APTT STAT 07/23/2022 11:24 AM CDT PROTIME-INR STAT 07/23/2022 11:24 AM CDT HC ANTIBODY SCREEN RBC STAT 11:24 AM CDT BLOOD GAS, VENOUS STAT 07/23/2022 11:24 AM CDT ETHANOL STAT 07/23/2022 11:24 AM CDT BASIC METABOLIC PANEL STAT 07/23/2022 11:24 AM CDT POCT GLUCOSE DEVICE Routine 07/23/2022 11:19 AM CDT POCT KETONE, BLOOD Routine 07/23/2022 11:19 AM CDT documented in this encounter Results * MO CRITICAL CARE ILL/INJURED PATIENT INIT 30-74 MIN (07/24/2022 3:09 PM CDT) Narrative Myla Rodriguez MD - 07/24/2022 3:09 PM CDT Myla Rodriguez MD ? 07/30/2022 ??4:25 PM Critical Care Performed by: Myla Rodriguez MD Authorized by: Myla Rodriguez MD ?? Critical care provider statement: As reflected in the history, physical exam, orders, notes, and/or MDM, I was personally present while the patient was critically ill and provided critical care services for 35 minutes, excluding time involved in separately billable procedures. ??Critical care was necessary to treat or prevent imminent or life-threatening deterioration of the following condition(s): ?? level 1 trauma and limb threatening condition ??Critical care was time spent by me providing the following: ? continuous telemetry, continuous pulse oximetry and serial bedside patient exams ?? advanced wound care ?? prepared for emergent procedure/operating room ?? I provided emergent necessary critical care medicine services to this patient. I ordered and reviewed test results and/or imaging studies. I spent time discussing the management of this critically ill patient with consultants and the medical staff. I spent time discussing the management and therapeutic options for this critically ill patient with the patient themselves or with the appropriate designated surrogate decision-maker. I spent time documenting in the medical record. us Myla Hudson MD IN CLINIC/BEDSIDE ORDERABLES Edited Result - Final * (ABNORMAL) eGFR (07/24/2022 6:58 AM CDT) [facility] Signature eGFR 57(L) 90 - 130 mL/min/1. 73 m2 [facility] Comment: Interpretive Data Reference Interval Normal ?>/= [...] interpretive data was last reviewed 2020. Blood 07/24/2022 6:58 AM CDT 07/24/2022 7:17 AM CDT Toro Mercado MD LAB BLOOD ORDERABLES Isela l Result Performing Organization Address City/[facility] Co de Phone Number [facility] [place] [address] * Phosphorus (07/24/2022 6:58 AM CDT) Phosphorus, pl 3.4 2.3 - 4.5 mg/dL [facility] Blood 07/24/2022 6:58 AM CDT 07/24/2022 7:17 AM CDT Toro Mercado MD LAB BLOOD ORDERABLES Isela l Result Performing Organization Address [facility] Co de Phone Number [facility] [place] [address] * Magnesium (07/24/2022 6:58 AM CDT) Magnesium 2.0 1.4 - 2.5 mg/dL [facility] Blood 07/24/2022 6:58 AM CDT 07/24/2022 7:17 AM CDT Toro Mercado MD LAB BLOOD ORDERABLES Isela l Result Performing Organization Address City/[facility] Co de Phone Number [facility] [place] [address] * Basic metabolic panel (07/24/2022 6:58 AM CDT) Sodium 140 135 - 145 mmol/L [facility] Potassium, pl 4.1 3.3 - 4.9 mmol/L [facility] Chloride 104 97 - 110 mmol/L [facility] CO2 29 22 - 32 mmol/L [facility] Anion gap 7 2 - 15 mmol/L [facility] BUN 20 8 - 25 mg/dL [facility] Creatinine 1.30 0.80 - 1.30 mg/dL [facility] Glucose 118 70 - 199 mg/dL [facility] Comment: Interpretive Data Fasting glucose >/= [...] interpretive data was last revised 2022. Calcium 9.0 8.5 - 10.3 mg/dL [facility] Blood 07/24/2022 6:58 AM CDT 07/24/2022 7:17 AM CDT us Toro Mercado MD LAB BLOOD ORDERABLES Isela jackson Result [facility] Department [place] [address] * (ABNORMAL) CBC without differential (07/24/2022 6:58 AM CDT) WBC 10.3(H) 3.8 - 9.9 K/cumm [facility] Hgb 9.4(L) 13.0 - 17.5 g/dL [facility] Hct 28.2(L) 38.9 - 50.3 % [facility] Plt 178 150 - 400 K/cumm [facility] MPV 10.7 9.1 - 12.3 fL [facility] RBC 3.08(L) 4.30 - 5.80 M/cumm [facility] MCV 91.6 81.3 - 96.4 fL [facility] MCH 30.5 27.1 - 33.3 pg [facility] MCHC 33.3 32.3 - 35.7 g/dL [facility] RDW CV 13.2 11.1 - 14.9 % [facility] RDW SD 43.2 35.7 - 48.1 fL [facility] NRBC abs 0.00 0.00 - 0.01 K/cumm [facility] Blood 07/24/2022 6:58 AM CDT 07/24/2022 7:16 AM CDT us Toro Mercado MD LAB BLOOD ORDERABLES Isela jackson Result [facility] Department [place] [address] * (ABNORMAL) POC Blood Gas and Chemistries, Venous - (07/23/2022 8:34 PM CDT) [facility] pH, Melchor POC 7.43 7.32 - 7.43 [facility] pCO2, melchor POC 35(L) 40 - 50 mmHg [facility] pO2, melchor POC 93 mmHg [facility] Na, POC 138 135 - 145 mmol/L [facility] K POC 4.7 3.3 - 4.9 mmol/L [facility] Comment: Interpretive Data This method is not able to assess for hemolysis, which may falsely increase potassium concentrations. If further testing is needed to evaluate this result, consider in-laboratory plasma potassium. Current Interpretive Data was last revised on 2021. Cl, POC 106 97 - 110 mmol/L [facility] Ionized Ca, POC 5.05 4.50 - 5.10 mg/dL [facility] Glucose, POC 101 70 - 199 mg/dL [facility] Lactate, POC 3.7(H) 0.7 - 2.2 mmol/L [facility] O2 Sat, Melchor POC (Terrell) 98 % [facility] Base excess, POC -0.9 mmol/L [facility] HCO3, Melchor POC 23 20 - 30 mmol/L [facility] Hct, POC 27.0(L) 41.4 - 51.6 % [facility] Total Hb, POC 9.1(L) 13.8 - 17.2 g/dL [facility] O2 Sat, Melchor POC (Calc) 97 % [facility] Blood 07/23/2022 8:34 PM CDT 07/23/2022 8:34 PM CDT us Toro Mercado MD LAB POCT ORDERABLES - DEV ICE Final Result [facility] Department [place] [address] * (ABNORMAL) POC Blood Gas and Chemistries, Arterial - (07/23/2022 8:30 PM CDT) pH, Art POC 7.44 7.35 - 7.45 [facility] pCO2, Art POC 35 35 - 45 mmHg [facility] pO2, Art POC 89 83 - 108 mmHg [facility] Na, POC 139 135 - 145 mmol/L [facility] K POC 4.8 3.3 - 4.9 mmol/L [facility] Comment: Interpretive Data This method is not able to assess for hemolysis, which may falsely increase potassium concentrations. If further testing is needed to evaluate this result, consider in-laboratory plasma potassium. Current Interpretive Data was last revised on 2021. Cl, POC 106 97 - 110 mmol/L [facility] Ionized Ca, POC 5.16(H) 4.50 - 5.10 mg/dL [facility] Glucose, POC 102 70 - 199 mg/dL [facility] Lactate, POC 3.8(H) 0.7 - 2.2 mmol/L [facility] SO2 (terrell) arterial 98(H) 90 - 95 % [facility] Base excess, POC -0.1 mmol/L [facility] HCO3, Art POC 24 20 - 30 mmol/L [facility] Hct, POC 28.0(L) 41.4 - 51.6 % [facility] O2 Sat, Art POC (Calc) 97 % [facility] Total Hb, POC 9.2(L) 13.8 - 17.2 g/dL [facility] Blood 07/23/2022 8:30 PM CDT 07/23/2022 8:30 PM CDT Toro Mercado MD LAB POCT ORDERABLES - DEV ICE Final Result Performing Organization Address [facility] de Phone Number [facility] [place] [address] * Check Sample (07/23/2022 11:46 AM CDT) ABO Rh O Positive [facility] HCLL OTHER 07/23/2022 11:4 6 AM CDT 07/23/2022 11:57 AM CDT Myla Hudson MD LAB BLOOD ORDERABLES Final R esult Performing Organization Address [facility] de Phone Number [facility] [place] [address] * XR Hand Left 3 or More Views (07/23/2022 11:30 AM CDT) Anatomical Region Laterality Modality Upper Extremities, Hand Left Computed Radiography 07/23/2022 11:5 6 AM CDT Impressions 07/23/2022 11:56 AM CDT No prior studies for comparison. ??Multifocal mild to moderate degenerative changes. ??No fracture or dislocation. ??No soft tissue gas. ??No radiopaque foreign body. Electronically signed by: Abhilash Sandra M.D. Narrative 07/23/2022 11:56 AM CDT EXAMINATION: Left hand 3 or more views Procedure Note Abhilash Sandra MD - 07/23/2022 EXAMINATION: Left hand 3 or more views IMPRESSION: No prior studies for comparison. Multifocal mild to moderate degenerative changes. No fracture or dislocation. No soft tissue gas. No radiopaque foreign body. Electronically signed by: Abhilash Sandra M.D. us Myla Hudson MD IMG XR PROCEDURES Final Resu lt * POCT lactate (07/23/2022 11:27 AM CDT) [facility] Lactate POC i-STAT 2.1 0.7 - 2.2 mmol/L [facility] Blood 07/23/2022 11:2 7 AM CDT 07/23/2022 11:27 AM CDT us Myla Hudson MD LAB POCT ORDERABLES - DEVICE Final Result [facility] [place] [address] * (ABNORMAL) eGFR (07/23/2022 11:24 AM CDT) [facility] eGFR 40(L) 90 - 130 mL/min/1. 73 m2 [facility] Comment: Interpretive Data Reference Interval Normal ?>/= [...] of Race in Diagnosing Kidney Disease, JASN 202). The CKD-EPI equation should not be used for patients with unstable renal function and has not been validated in children and those over 70. Current interpretive data was last reviewed 2020. Blood 07/23/2022 11:2 4 AM CDT 07/23/2022 11:31 AM CDT us Myla Hudson MD LAB BLOOD ORDERABLES Final R esult [facility] Department [place] [address] * (ABNORMAL) Differential, auto (07/23/2022 11:24 AM CDT) Neutrophil abs 6.7(H) 1.7 - 6.5 K/cumm [facility] Imm gran abs 0.0 0.0 - 0.1 K/cumm [facility] Lymphocyte abs 2.1 0.8 - 3.3 K/cumm [facility] Monocyte abs 1.0(H) 0.2 - 0.8 K/cumm [facility] Eosinophil abs 0.1 0.0 - 0.5 K/cumm [facility] Basophil abs 0.1 0.0 - 0.1 K/cumm [facility] Neutrophil pct 67.0 % [facility] Comment: Interpretive Data Percent cell count reference ranges are not reported, since discordance with absolute values may lead to misinterpretation of CBC data. Current Interpretive Data was last revised on 2017. Imm gran pct 0.4 % [facility] Comment: Interpretive Data Percent cell count reference ranges are not reported, since discordance with absolute values may lead to misinterpretation of CBC data. Current Interpretive Data was last revised on 2017. Lymphocyte pct 21.4 % [facility] Comment: Interpretive Data Percent cell count reference ranges are not reported, since discordance with absolute values may lead to misinterpretation of CBC data. Current Interpretive Data was last revised on 2017. Monocyte pct 9.6 % [facility] Comment: Interpretive Data Percent cell count reference ranges are not reported, since discordance with absolute values may lead to misinterpretation of CBC data. Current Interpretive Data was last revised on 2017. Eosinophil pct 1.1 % [facility] Comment: Interpretive Data Percent cell count reference ranges are not reported, since discordance with absolute values may lead to misinterpretation of CBC data. Current Interpretive Data was last revised on 2017. Basophil pct 0.5 % [facility] Comment: Interpretive Data Percent cell count reference ranges are not reported, since discordance with absolute values may lead to misinterpretation of CBC data. Current Interpretive Data was last revised on 2017. Blood 07/23/2022 11:2 4 AM CDT 07/23/2022 11:30 AM CDT us Myla Hudson MD LAB BLOOD ORDERABLES Final R esult [facility] Department [place] [address] * (ABNORMAL) Basic metabolic panel (07/23/2022 11:24 AM CDT) Sodium 139 135 - 145 mmol/L [facility] Comment:Code Blue Specimen Potassium, pl 4.7 3.3 - 4.9 mmol/L [facility] Comment:Code Blue Specimen Chloride 104 97 - 110 mmol/L [facility] Comment:Code Blue Specimen CO2 25 22 - 32 mmol/L [facility] Comment:Code Blue Specimen Anion gap 10 2 - 15 mmol/L [facility] Comment:Code Blue Specimen BUN 28(H) 8 - 25 mg/dL [facility] Comment:Code Blue Specimen Creatinine 1.38(H) 0.80 - 1.30 mg/dL [facility] Comment:Code Blue Specimen Glucose 155 70 - 199 mg/dL [facility] Comment: Code Blue Specimen Interpretive Data Fasting glucose >/= 126 mg/dl [...] classification and Diagnosis of Diabetes Diabetes Care 2022; 46: S19-S40. Current interpretive data was last revised 2022. Calcium 10.1 8.5 - 10.3 mg/dL [facility] Comment:Code Blue Specimen Blood 07/23/2022 11:2 4 AM CDT 07/23/2022 11:31 AM CDT Myla Hudson MD LAB BLOOD ORDERABLES Final R esult Performing Organization Address City/[facility]/ZIP Co de Phone Number [facility] Department [place] [address] * Extrinsic thromboelastometry (EXTEM) (07/23/2022 11:24 AM CDT) Clotting Time-Extrinsic 68 59 - 87 sec [facility] Comment:Code Blue Specimen Clot Formation Time-Extrinsic 84 45 - 131 sec [facility] Comment:Code Blue Specimen Angle-Extrinsic 73 65 - 83 Degree [facility] Comment:Code Blue Specimen Max Clot Firmness-Extrin sic 64 53 - 75 mm [facility] Comment:Code Blue Specimen Lysis 30-Extrinsic 100 85 - 100 % [facility] Comment:Code Blue Specimen Blood 07/23/2022 11:2 4 AM CDT 07/23/2022 11:31 AM CDT us Myla Hudson MD LAB BLOOD ORDERABLES Edited Result - Final Performing Organization Address [facility] Co de Phone Number [facility] Department [place] [address] * Thrombocyte inhibited fibrinogen (FIBTEM) (07/23/2022 11:24 AM CDT) Maximum Clot Firm-Fibrinogen 14 9 - 29 mm [facility] Comment:Code Blue Specimen Blood 07/23/2022 11:2 4 AM CDT 07/23/2022 11:31 AM CDT Myla Hudson MD LAB BLOOD ORDERABLES Edited Result - Final Performing Organization Address [facility] Co de Phone Number [facility] [place] [address] * Protime-INR (07/23/2022 11:24 AM CDT) PT 10.2 9.2 - 13.5 sec [facility] Comment:Code Blue Specimen INR 0.9 0.9 - 1.2 [facility] Comment: Code Blue Specimen Interpretive data Oral anticoagulant therapeutic ranges: Venous thromboembolism prophylaxis or treatment: 2.0-3.0 CARDIOLOGY Standard range: 2.0-3.0 High-intensity range: 2.5-3.5 Refer to indication-specific guidelines for appropriate target ranges for prosthetic heart valve replacement. Current interpretive data was last revised on 2019. Blood 07/23/2022 11:2 4 AM CDT 07/23/2022 11:31 AM CDT Myla Hudson MD LAB BLOOD ORDERABLES Final R esult Performing Organization Address [facility] de Phone Number [facility] [place] [address] * (ABNORMAL) aPTT (07/23/2022 11:24 AM CDT) aPTT 22(L) 27 - 37 sec [facility] Comment: Code Blue Specimen Interpretive Data Therapeutic heparin range: 60.0 - 94.0 seconds. Based on correlation with therapeutic heparin activity range of 0.3-0.7 Units/mL. Current interpretive data was last revised on 2020. Blood 07/23/2022 11:2 4 AM CDT 07/23/2022 11:31 AM CDT Myla Hudson MD LAB BLOOD ORDERABLES Final R esult Performing Organization Address City/[facility] Co de Phone Number [facility] Department [place] [address] * Ethanol (07/23/2022 11:24 AM CDT) Pathologist [facility] Ethanol <10 <=10 mg/dL [facility] Comment: Code Blue Specimen Interpretive Data Legal limit of intoxication > or = 80 mg/dL Levels > or = 400 mg/dL are potentially TOXIC. Current interpretive data was last revised on 2018. Blood 07/23/2022 11:2 4 AM CDT 07/23/2022 11:31 AM CDT us Myla Hudson MD LAB BLOOD ORDERABLES Final R esult [facility] [place] [address] * (ABNORMAL) CBC with auto differential (07/23/2022 11:24 AM CDT) [facility] WBC 10.0(H) 3.8 - 9.9 K/cumm [facility] Comment:Code Blue Specimen Hgb 11.4(L) 13.0 - 17.5 g/dL [facility] Hct 34.1(L) 38.9 - 50.3 % [facility] Plt 225 150 - 400 K/cumm [facility] MPV 10.4 9.1 - 12.3 fL [facility] RBC 3.74(L) 4.30 - 5.80 M/cumm [facility] MCV 91.2 81.3 - 96.4 fL [facility] MCH 30.5 27.1 - 33.3 pg [facility] MCHC 33.4 32.3 - 35.7 g/dL [facility] RDW CV 12.8 11.1 - 14.9 % [facility] RDW SD 42.6 35.7 - 48.1 fL [facility] NRBC abs 0.00 0.00 - 0.01 K/cumm [facility] Blood (Blood, Venous) 07/23/2022 11:24 AM CDT 07/23/2022 11:30 AM CDT Myla Hudson MD LAB BLOOD ORDERABLES Final R esult Performing Organization Address City/[facility]/ZIP Co de Phone Number [facility] [place] [address] * Blood gas, venous (07/23/2022 11:24 AM CDT) pH, Venous 7.39 7.32 - 7.43 [facility] Comment:Code Blue Specimen PCO2, Venous 43 40 - 50 mmHg [facility] Comment:Code Blue Specimen PO2, Venous 36 mmHg [facility] Comment: Code Blue Specimen Interpretive Data No Reference Range Established Current Interpretive Data was last revised on 2017. HCO3 Venous, Calculated 27 20 - 30 mmol/L [facility] Comment:Code Blue Specimen BE, venous 1 mmol/L [facility] Comment: Code Blue Specimen Interpretive Data No Reference Range Established Current Interpretive Data was last revised on 2017. Blood 07/23/2022 11:2 4 AM CDT 07/23/2022 11:30 AM CDT Myla Hudson MD LAB BLOOD ORDERABLES Final R esult Performing Organization Address [facility] Co de Phone Number [facility] [place] [address] * Type and screen (07/23/2022 11:24 AM CDT) Unique, indirect Negative [facility] ABO Rh O Positive [facility] Blood 07/23/2022 11:2 4 AM CDT 07/23/2022 11:31 AM CDT Narrative [facility] - 07/23/2022 12:23 PM CDT Has the patient had Daratumumab or Isatuximab in the past 6 months?->Unknown Myla Hudson MD LAB BLOOD BANK TEST ORDERABL ES Final Result Performing Organization Address [facility] [place] [address] * POCT glucose (07/23/2022 11:19 AM CDT) Glucose, POC 156 70 - 199 mg/dL [facility] Blood 07/23/2022 11:1 9 AM CDT 07/23/2022 11:19 AM CDT us Myla Hudson MD LAB POCT ORDERABLES - DEVICE Final Result Performing Organization Address [facility] [place] [address] * POCT ketone, blood (07/23/2022 11:19 AM CDT) Ketones, Blood, POC 0.2 0.0 - 0.5 mmol/L [facility] Blood 07/23/2022 11:1 9 AM CDT 07/23/2022 11:19 AM CDT us Myla Hudson MD LAB POCT ORDERABLES - DEVICE Final Result Performing Organization Address [facility] de Phone Number [facility] Department [place] [address] documented in this encounter Visit Diagnoses Diagnosis Injury of left hand, initial encounter- Primary Injury of left hand, initial encounter Hand laceration involving tendon, left, initial encounter Nerve injury Injury to nerves, unspecified site documented in this encounter Admitting Diagnoses Diagnosis Injury of left hand, initial encounter Nerve injury Injury to nerves, unspecified site documented in this encounter Administered Medications Inactive Administered Medications - up to 3 most recent administrations Medication Order MAR Action Action Date Dose Rate Site acetaminophen (TYLENOL) tablet 1,000 mg 1,000 mg, oral, Every 6 hours scheduled, First dose on Jael 07/24/22 at 0000, Phase I & Post-op Floor Given 07/24/2022 11:20 AM CDT 1,000 mg Given 07/24/2022 6:31 AM CDT 1,000 mg Given 07/24/2022 12:30 AM CDT 1,000 mg amLODIPine (NORVASC) tablet 5 mg 5 mg, oral, Daily, First dose on Thu07/24/22 at 0900, Phase I & Post-op Floor Given 07/24/2022 8:02 AM CDT 5 mg aspirin chewable tablet 81 mg 81 mg, oral, Daily, First dose on Thu07/24/22 at 0900, Phase I & Post-op Floor Given 07/24/2022 8:01 AM CDT 81 mg ceFAZolin (ANCEF) 2,000 mg/20 mL in sterile water (premix) 2,000 mg 2,000 mg, intravenous, at 400 mL/hr, Administer over 3 Minutes, Once, On Thu07/23/22 at 1342, For 1 dose, Indications: Prophylaxis, SurgicalIndications:Prophylaxis, Surgical Given 07/23/2022 2:24 PM CDT 2,000 mg 400 mL/hr ceFAZolin (ANCEF) 2,000 mg/20 mL in sterile water (premix) 2,000 mg 2,000 mg, intravenous, at 400 mL/hr, Administer over 3 Minutes, Every 8 hours, First dose on Thu07/24/22 at 0330, For 2 doses, Beginning 8 hours after pre-op dose., Indications: Prophylaxis, SurgicalIndications:Prophylaxis, Surgical Given 07/24/2022 11:21 AM CDT 2,000 mg 400 mL/hr Given 07/24/2022 4:28 AM CDT 2,000 mg 400 mL/hr dipyridamole (PERSANTINE) tablet 25 mg 25 mg, oral, 3 times daily, First dose on Thu07/24/22 at 0900 Given 07/24/2022 8:02 AM CDT 25 mg famotidine (PEPCID) 20 mg/50 mL in sodium chloride 0.9% (premix) 20 mg 20 mg, intravenous, at 150 mL/hr, Administer over 20 Minutes, Once, On Thu07/23/22 at 1403, For 1 dose New Bag 07/23/2022 2:24 PM CDT 20 mg 150 mL/hr fentaNYL (SUBLIMAZE) preservative free injection Code/trauma/sedation medication, Starting on Thu07/23/22 at 1115 Given 07/23/2022 11:15 AM CDT 100 mcg Right Antecubital Lactated Ringer's (LR) infusion - ADS Override Pull Starting on Thu07/23/22 at 1459, For 1 dose, Created by cabinet override Lactated Ringer's (LR) infusion 30 mL/hr, intravenous, Continuous, Starting on Thu07/23/22 at 1545, Pre-Op Restarted 07/23/2022 9:44 PM CDT Rate/Dose Verify 07/23/2022 7:12 PM CDT 150 mL/ hr New Bag 07/23/2022 3:19 PM CDT 30 mL/hr 30 mL/hr losartan (COZAAR) tablet 100 mg 100 mg, oral, Daily, First dose on Jael 07/24/22 at 0900, Phase I & Post-op Floor Given 07/24/2022 8:02 AM CDT 100 mg morphine injection 4 mg 4 mg, intravenous, Administer over 4 Minutes, Every 1 hour PRN, 1st line for pain, hold for somnolecne or RR<12, Starting on Thu07/23/22 at 1133 Given 07/23/2022 2:34 PM CDT 4 mg oxyCODONE (ROXICODONE) tablet 5 mg 5 mg, oral, Every 4 hours PRN, 2nd line for pain, Starting on Thu07/23/22 at 2032, Phase I & Post-op Floor, Indications: PainIndications:Pain Given 07/24/2022 12:31 AM CDT [address] (PROTONIX) extended release tablet 40 mg 40 mg, oral, Daily, First dose on Jael 07/24/22 at 0900, Phase I & Post-op Floor, Do not crush, chew, cut, dissolve, open or otherwise manipulate tablet/capsule., Indications: Stress Ulcer ProphylaxisIndications:Stress Ulcer Prophylaxis Given 07/24/2022 8:02 AM CDT 40 mg polyethylene glycol (MIRALAX) packet 17 g 17 g, oral, Daily, First dose on Jael 07/24/22 at 0900, Indications: constipationIndications:constipation Given 07/24/2022 8:03 AM CDT 17 g pravastatin (PRAVACHOL) tablet 40 mg 40 mg, oral, Daily, First dose on Jael 07/24/22 at 0900, Phase I & Post-op Floor Given 07/24/2022 8:02 AM CDT 40 mg sodium chloride 0.9% irrigation 1,000 mL 1,000 mL, irrigation, Once, On Thu07/23/22 at 1133, For 1 dose Given 07/23/2022 11:45 AM CDT 1,000 mL documented in this encounter Discontinued Medications Medication Sig Discontinue Reason Start Date End Da te aspirin 81 mg chewable tablet Take 1 tablet (81 mg total) by mouth daily Stop Taking at Discharge 07/24/2022 documented as of this encounter Historical Medications * This list may reflect changes made after this encounter. RABEprazole DR (ACIPHEX) 20 mg EC tabletIndications: Stress Ulcer Prophylaxis Take 1 tablet (20 mg total) by mouth as needed aspirin 81 mg chewable tablet Take 1 tablet (81 mg total) by mouth daily 07/24/2022 amLODIPine (NORVASC) 5 mg tablet Take 1 tablet (5 mg total) by mouth daily 10/21/2022 losartan (COZAAR) 100 mg tablet Take 1 tablet (100 mg total) by mouth daily 10/21/2022 pravastatin (PRAVACHOL) 40 mg tablet Take 1 tablet (40 mg total) by mouth daily 10/21/2022 added in this encounter Active and Recently Administered Medications Times are shown in CDT. Scheduled Medication Order 07/22/2022 07/23/2022 07/24/2022 acetaminophen (TYLENOL) tablet 1,000 mg 1,000 mg, oral, Every 6 hours scheduled, First dose on Jael 07/24/22 at 0000, Phase I & Post-op Floor 0030 (Given - Provid er: Latisha Campbell RN)0631 (Given - Provider: Bhavya Rushing RN)1120 (Given - Provider: Lance Mathew RN) amLODIPine (NORVASC) tablet 5 mg 5 mg, oral, Daily, First dose on Jael 07/24/22 at 0900, Phase I & Post-op Floor 0802 (Given - Provid er: Lance Mathew RN) aspirin chewable tablet 81 mg 81 mg, oral, Daily, First dose on Jael 07/24/22 at 0900, Phase I & Post-op Floor 0801 (Given - Provid er: Lance Mathew RN) ceFAZolin (ANCEF) 2,000 mg/20 mL in sterile water (premix) 2,000 mg (COMPLETED) 2,000 mg, intravenous, at 400 mL/hr, Administer over 3 Minutes, Once, On Thu07/23/22 at 1342, For 1 dose, Indications: Prophylaxis, Surgical 1424 (Given - Provider: Ricki Estevez RN) ceFAZolin (ANCEF) 2,000 mg/20 mL in sterile water (premix) 2,000 mg (COMPLETED) 2,000 mg, intravenous, at 400 mL/hr, Administer over 3 Minutes, Every 8 hours, First dose on Jael 07/24/22 at 0330, For 2 doses, Beginning 8 hours after pre-op dose., Indications: Prophylaxis, Surgical 0428 (Given - Provid er: Bhavya Rushing RN)1121 (Given - Provider: Lance Mathew RN) dipyridamole (PERSANTINE) tablet 25 mg 25 mg, oral, 3 times daily, First dose on Jael 07/24/22 at 0900 0802 (Given - Provid er: Lance Mathew RN) famotidine (PEPCID) 20 mg/50 mL in sodium chloride 0.9% (premix) 20 mg (COMPLETED) 20 mg, intravenous, at 150 mL/hr, Administer over 20 Minutes, Once, On Thu07/23/22 at 1403, For 1 dose 1424 (New Bag - Provider: Ricki Estevez RN) losartan (COZAAR) tablet 100 mg 100 mg, oral, Daily, First dose on Jael 07/24/22 at 0900, Phase I & Post-op Floor 08 (Given - Provid er: Lance Mathew RN) pantoprazole DR (PROTONIX) extended release tablet 40 mg 40 mg, oral, Daily, First dose on Jael 07/24/22 at 0900, Phase I & Post-op Floor, Do not crush, chew, cut, dissolve, open or otherwise manipulate tablet/capsule., Indications: Stress Ulcer Prophylaxis 08 (Given - Provid er: Lance Mathew RN) polyethylene glycol (MIRALAX) packet 17 g 17 g, oral, Daily, First dose on Jael 07/24/22 at 0900, Indications: constipation 0803 (Given - Provid er: Lance Mathew RN) pravastatin (PRAVACHOL) tablet 40 mg 40 mg, oral, Daily, First dose on Jael 07/24/22 at 0900, Phase I & Post-op Floor 0802 (Given - Provid er: Lance Mathew RN) sodium chloride 0.9% irrigation 1,000 mL (COMPLETED) 1,000 mL, irrigation, Once, On Thu07/23/22 at 1133, For 1 dose 1145 (Given - Provider: Ricki Estevez RN - Comment: Given by marco FORREST) Continuous Medication Order 07/22/2022 07/23/2022 07/24/2022 Lactated Ringer's (LR) infusion (CANCELED) 30 mL/hr, intravenous, Continuous, Starting on Thu07/23/22 at 1545, Pre-Op 1519 (New Bag - Provider: Elaine Manzo RN)1912 (Rate/Dose Verify - Provider: Sarah Griffin CRNA)2032 (Anesthesia Volume Adjustment - Provider: Magda Banks CRNA)214 (Paused - Provider: Magda Banks CRNA - Comment: Switch to gravity)214 (Restarted - Provider: Magda Banks CRNA)2303 (Anesthesia Volume Adjustment - Provider: Fahad Todd DO) 0129 (Stopped - Provider: Bahvya Rushing RN) PRN Medication Order 07/22/2022 07/23/2022 07/24/2022 fentaNYL (SUBLIMAZE) preservative free injection (COMPLETED) Code/trauma/sedation medication, Starting on Thu07/23/22 at 1115 1115 (Given - Provider: Myla Rodriguez MD)1116 (Canceled Entry - Provider: Ricki Estevez RN - Comment: Automatically documented as Canceled Entry when linked to one-step medication.) heparin 10,000 units in sodium chloride 0.9% 1,000 mL (CANCELED) As needed, Starting on Thu07/23/22 at 2121, Intra-Op 2120 (Given - Provider: Vimal Stringer MD - Comment: 1000ml given to sterile field) morphine injection 4 mg (CANCELED) 4 mg, intravenous, Administer over 4 Minutes, Every 1 hour PRN, 1st line for pain, hold for somnolecne or RR<12, Starting on Thu07/23/22 at 1133 1434 (Given - Provider: Ricki Estevez, GREG)1455 (APR Hold - Provider: Automatic Transfer Provider - Reason: Patient not available)2008 (APR Unhold - Provider: Automatic Transfer Provider)2023 (APR Hold - Provider: Automatic Transfer Provider - Reason: Patient not available)2032 (APR Unhold - Provider: Missy Yuan MD) oxyCODONE (ROXICODONE) tablet 5 mg 5 mg, oral, Every 4 hours PRN, 2nd line for pain, Starting on Thu07/23/22 at 2031, Phase I & Post-op Floor, Indications: Pain 0031 (Given - Provid er: Latisha Campbell RN) documented in this encounter Orders Medications Ordered That Reece ht Not Have Been Administered Count Last Ordered Date First Ordered Date fentaNYL (SUBLIMAZE) preserv ative free injection 50 mcg 1 07/23/2022 heparin 10,000 units in sodi um chloride 0.9% 1,000 mL 1 07/23/2022 heparin 100,000 units in sod ium chloride 0.9% 1,000 mL 1 07/23/2022 HYDROmorphone (DILAUDID) injection 0.2 mg 1 07/23/2022 HYDROmorphone (DILAUDID) injection 0.4 mg 1 07/23/2022 naloxone (NARCAN) 0.4 mg/mL injection 0.04-0.4 mg 1 07/23/2022 ondansetron (ZOFRAN) injection 4 mg 1 07/23 prochlorperazine (COMPAZINE) injection 5 mg 1 07/23/2022 Lab Orders Without Results Count Last Ordered D ate First Ordered Date POCT LACTATE - DEVICE 1 07/23/2022 POCT [id number] - ISTAT 1 07/24/19 Diet Count Last Ordered Date First Orde red Date ADULT DISCHARGE DIET 1 07/24/2022 Nursing Count Last Ordered Date First Orde red Date CARE ORDER/INSTRUCTION 1 07/24/2022 DISCHARGE ACTIVITY 3 07/24/2022 DISCHARGE CALL PROVIDER 4 07/24/2022 DISCHARGE DRESSING 2 07/24/2022 DISCHARGE INSTRUCTIONS 2 07/24/2022 NURSING COMMUNICATION 1 07/23/2022 Consult Count Last Ordered Date First Orde red Date CONSULT TO ORTHO-HAND 1 07/23/2022 Admission Count Last Ordered Date First Orde red Date ADMIT TO INPATIENT 2 07/23/2022 Discharge Count Last Ordered Date First Orde red Date DISCHARGE PATIENT 1 07/24/2022 CORE MEASURES Count Last Ordered Date First Ord ered Date REASON FOR NO VTE PROPHYLAXI S - HOSPITAL ADMISSION - MEDICATIONS 1 07/23/2022 Case Request Count Last Ordered Date First Orde red Date CASE REQUEST OPERATING ROOM 1 07/23/2022 documented in this encounter Care Teams Grassroots Organizer Relationship Specialty Start Date End Date Unknown, Notinfile PCP - General 07/23/22 10/23/22 Jaylon Gudino MD [address] [place] [address] 07/23/22 documented as of this encounter
--- OUTSIDE RECORDS SUMMARY | 2024-03-03 11:45 | XMS_ITS | Encounter Summary ---
Author Organization [facility] Healthcare Address [address] [place] [address] Care Team Providers Care Assistant Professor Of Life Sciences Name Role Phone Unknown, Notinfile Primary Care Provider Unavail able Jaylon Gudino MD Unavailable [phone] Reason for Visit * Reason Comments Hand Injury * Auth/Cert (Routine) Specialty Diagnoses / Procedures Referred By Contac t Referred To Contact Diagnoses Injury of left hand, initial encounter Nerve injury Procedures N/A Referral ID Status Reason Start Date Expiration Date Visits Re quested Visits Authorized [id number] 1 1 Encounter Details Date Type Department Care Team (Late st Contact Info) Description 07/23/2022 6:00 PM CDT - 07/23/2022 9:35 PM CDT Surgery [facility] Operating Room [address] [place] [address] Vimal Glover MD [address] [facility] 6A[address]6B[address] [place] [address] REPAIR NERVE Surgery Details Date/Time Status Location OR Service Patient Class Case Class Case Type Trauma Case? 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 Gender Identity Not on file Sexual Orientation Not on file documented as of this encounter Last Filed Vital Signs Vital Sign Reading Time Taken Comments Blood Pressure 146/85 07/23/2022 6:50 PM CDT Pulse 58 07/23/2022 6:50 PM CDT Temperature 36 ??C (96.8 ??F) 07/23/2022 3:00 PM CDT Respiratory Rate 12 07/23/2022 6:50 PM CDT Oxygen Saturation 98% 07/23/2022 6:50 PM CDT Inhaled Oxygen Concentration - - Weight - - Height - - Body Mass Index - - documented in this encounter Discharge Summaries * Tequila Burdick NP - 07/24/2022 2:12 PM CDT [facility] Geriatric Trauma Surgery Inpatient Discharge Summary This [...] a 74-year-old male who presented to the [facility] emergency department after sustaining a injury to his left hand from a skill saw earlier today. 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 Examination in the emergency [...] protocol within 5 days - discharge on [id number] and persantine x 4 weeks for his [...] soiling of the splint. Discharge Wound Type: Stitches/[place] -Stitches/jonel will be removed at your next [...] and plan ofcare as discussed with the CLASSER/PA. Grecia Vasquez MD Acute and Critical Care Surgery [facility] documented in this encounter [...] discharge needs arise, please contact the covering child support case officer. 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 See below for overnight issues. If you know the resident's name on the appropriate orthopaedic surgery team, please use [email or web address] to page resident directly. If questions arise and the appropriate resident can't be reached or you are calling overnight, please contact [phone] ([place]- 7:30 PM - 6:30 AM - Floor Resident) or [phone] (24 hours/day - Consult Resident) Cosigned by Vimal Stringer MD at 09/02/2022 12:32 PM CDT * Robert Lomax B.A. - 07/23/2022 11:45 AM CDT Chaplain Edgar Lomax MDiv [facility] Spiritual Care Triage: [phone] 07/23/22 1145 Time Spent Start Time 1145 Stop Time 1215 Time Calculation (min) 30 min Patient Spiritual Assessment Spirituality Assessed Yes Yazdanism Affiliation Presbyterian Active in Restorationist Yes Clinical Encounter Type Visited With Patient Response Type Crisis visit Crisis Visit ED;Trauma Reason for visit Support;Patient Spiritual Care Encounter Outcomes and Progress Aligning care with patient's values Achieved Preserve dignity and respect Achieved Demonstrating care and respect Achieved Establish rapport and connectedness Achieved Interventions Interventions Active listening;Offer emotional support;Offer spiritual/judaism support * Rach Shaffer LCSW - 07/23/2022 11:39 AM CDT SW responded to Level 1 pager notification. Pt identified as Bacilio RamirezKELLIE 09/04/1947, [place] [address]; information obtained from pt. Pt JEREMIAS Felton). 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 If questions arise and the appropriate resident can't be reached or you are calling overnight, please contact [phone] ([facility] 7:30 PM - 6:30 AM - Floor Resident) or [phone] (24 hours/day - Consult Resident) Cosigned by [...] Yuan MD - 07/23/2022 11:00 AM CDT [facility] Trauma Surgery History and Physical Date of [...] laceration Ortho hand: OR for I&D, NWB LUE Admit to GTS floor Condition of Patient: Stable Disposition of Patient: Admit to geriatric trauma service-Floor FOLLOWUP NEEDED: Patient may call [phone] - option 1 after discharge during normal businesshours (M-F) to schedule a follow-up appointment if needed with the Acute and Critical Care Surgery Clinic in the 3rd floor of the [facility] Amena Yuan MD Trauma Surgery [...] Verbal Response: 5 Best Motor Response: 6 [place]xton Coma Scale Score: 15 Data Review: Lab [...] with voice recognition software. Occasional wrong-word or '[id number]' substitutions may have occurred due to the inherent limitations of voice recognition software. Read the chart carefully and recognize, using context, where substitutions have occurred. Medical Decision Making Amount and/or Complexity of Data Reviewed Labs: ordered. Radiology: ordered. Risk Prescription drug management. Decision regarding hospitalization. Attending Summary of Care ED Course as of 07/24/22 2593 Time: 07/23 1128 Comment: Ortho to see By: Carlitos Fung MD Injury of left hand, initial encounter Hand laceration involving tendon, left, initial encounter Carlitos Fung MD Resident 05/25/23 1433 Cosigned by Myla Rodriguez MD at [...] RN - 07/23/2022 11:09 AM CDT Bed: [facility] Expected date: Expected time: Means of arrival: [...] of service: 07/23/2022 Myla Rodriguez MD 07/25/22 8617 Myla Rodriguez MD 07/30/22 1625 * Plan of Care - Christina Garcia RN - 07/24/2022 11:16 AM CDT Patient notified CM: : 1945 [address] [place] [address] SSN: [id number] Patient stated INS: Medicare A&B * Initial Assessments - Christina Garcia RN - 07/24/2022 11:12 AM CDT CM Initial Assessment Interview Note Information Obtained From: Patient (In Room) (07/24/22 1058) Admission Source: Non-health care facility point of [...] Ramirez Relationship to patient: Son Support System: [employer] Support system contact info (name, phone, availablity): [...] Collaboration with patient, MD, direct care nurse, Patent Prosecution Attorney, and other members of the health care team to assure needed interventions completed. 2. Return patient to optimal level of self-care post discharge. 3. Commissioner Of Officials will follow for Discharge Planning - interventions [...] a 76-year-old male who presented to the [facility] emergency department after sustaining a injury to his left hand from a skill saw earlier today. 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 Examination in the emergency [...] Implant Name Type Inv. Item Serial No. Scientific Programmer Analyst Lot No. LRB No. Used Action HooptapIAN GEM CARTRIDGE MICRO CLIP INTERNAL TITANIUM HEMOSTATIC [id number] - [id number] Clip OMNIlife science Angier Cartridge Micro Clip Internal Titanium Hemostatic [id number] Camrivox [id number] Left 6 Implanted [employer] AVANCE 2-3MM 50MM ALLOGRAFT MULTIPLE CLEAN GRAFT SOFT TISSUE [id number] - [id number] AXOGENINC Avance 2-3mm 50mm Allograft Multiple Clean Graft Soft Tissue [id number] Axogen Inc [id number] Left 1 Implanted OMNIlife science HEMOCLIP SUPERFINE CLIP INTERNAL [id number] - [id number] Clip OMNIlife science Hemoclip Superfine Clip Internal [id number] Figo Pet Insurances Webrazzi [id number] Left 6 Implanted OMNIlife science GEM CARTRIDGE MICRO CLIP INTERNAL TITANIUM HEMOSTATIC [id number] - [id number] OMNIlife science Angier Cartridge Micro Clip Internal Titanium Hemostatic [id number] Hypecal [id number] Left 1 Implanted [employer] Enlightened Lifestyle HEMOCLIP SUPERFINE CLIP INTERNAL [id number] - [id number] [employer] Enlightened Lifestyle Hemoclip Superfine Clip Internal [id number] Figo Pet Insurances Hypecal [id number] Left 1 Implanted INTEGRA 27 Perry INTEGRA 2X2IN BILAYER MATRIX DRESSING BIOLOGICAL BOVINE COLLAGEN LATEX FREE [id number] - [id number] INTEGRA 27 Perry Integra 2x2in Bilayer Matrix Dressing Biological Bovine Collagen Latex Free [id number] Integra [employer] ([place]) Samira [id number] Left 1 Implanted OPERATIVE DETAILS Estimated Blood [...] the middle finger was ligated using a Angier clip both proximally and distally. We turned [...] ulnar digital artery was ligated using a Angier clip both proximally and distally. We turned [...] the small finger was ligated using a Angier clip both proximally distally. Lastly, we turned [...] Procedure Name Priority Date/Time Associated Diagnosis Comments [place] CRITICAL CARE ILL/INJURED PATIENT INIT 30-74 MIN [...] CDT documented in this encounter Results * [place] CRITICAL CARE ILL/INJURED PATIENT INIT 30-74 MIN [...] * (ABNORMAL) eGFR (07/24/2022 6:58 AM CDT) eGFR 57(L) 90 - 130 mL/min/1. 73 [...] ORDERABLES Isela l Result Performing Organization Address City/[facility] Co de Phone Number [facility] [place] [address] * Phosphorus (07/24/2022 6:58 AM CDT) Pathologist [facility] Phosphorus, pl 3.4 2.3 - 4.5 mg/dL [facility] Blood 07/24/2022 6:58 AM CDT 07/24/2022 7:17 AM CDT Toro Mercado MD LAB BLOOD ORDERABLES Isela l Result Performing Organization Address [facility] de Phone Number [facility] [place] [address] * Magnesium (07/24/2022 6:58 AM CDT) [facility] Magnesium 2.0 1.4 - 2.5 mg/dL [facility] Blood 07/24/2022 6:58 AM CDT 07/24/2022 7:17 AM CDT Toro Mercado MD LAB BLOOD ORDERABLES Isela l Result Performing Organization Address [facility] [place] [address] * Basic metabolic panel (07/24/2022 6:58 AM CDT) Pathologist [facility] Sodium 140 135 - 145 mmol/L [facility] Potassium, pl 4.1 3.3 - 4.9 mmol/L [facility] Chloride 104 97 - 110 mmol/L [facility] CO2 29 22 - 32 mmol/L [facility] Anion gap 7 2 - 15 mmol/L [facility] BUN 20 8 - 25 mg/dL [facility] Creatinine 1.30 0.80 - 1.30 mg/dL [facility] Glucose 118 70 - 199 mg/dL [facility] Comment: Interpretive Data Fasting glucose >/= [...] classification and Diagnosis of Diabetes Diabetes Care 202; 46: S19-S40. Current interpretive data was last revised 2022. Calcium 9.0 8.5 - 10.3 mg/dL [facility] Blood 07/24/2022 6:58 AM CDT 07/24/2022 7:17 AM CDT Toro Mercado MD LAB BLOOD ORDERABLES Isela jackson Result [facility] Department [place] [address] * (ABNORMAL) CBC without differential (07/24/2022 6:58 AM CDT) WBC 10.3(H) 3.8 - 9.9 K/cumm [facility] Hgb 9.4(L) 13.0 - 17.5 g/dL [facility] Hct 28.2(L) 38.9 - 50.3 % [facility] Plt 178 150 - 400 K/cumm [facility] MPV 10.7 9.1 - 12.3 fL [facility] RBC 3.08(L) 4.30 - 5.80 M/cumm [facility] MCV 91.6 81.3 - 96.4 fL [facility] MCH 30.5 27.1 - 33.3 pg [facility] MCHC 33.3 32.3 - 35.7 g/dL [facility] RDW CV 13.2 11.1 - 14.9 % [facility] RDW SD 43.2 35.7 - 48.1 fL [facility] NRBC abs 0.00 0.00 - 0.01 K/cumm [facility] Blood 07/24/2022 6:58 AM CDT 07/24/2022 7:16 AM CDT us Toro Mercado MD LAB BLOOD ORDERABLES Isela renetta Result [facility] Department [place] [address] * (ABNORMAL) POC Blood Gas and Chemistries, Venous - (07/23/2022 8:34 PM CDT) pH, Melchor POC 7.43 7.32 - 7.43 [facility] pCO2, melchor POC 35(L) 40 - 50 mmHg [facility] pO2, melchor POC 93 mmHg [facility] Na, POC 138 135 - 145 mmol/L [facility] K POC 4.7 3.3 - 4.9 mmol/L [facility] Comment: Interpretive Data This method is not able to assess for hemolysis, which may falsely increase potassium concentrations. If further testing is needed to evaluate this result, consider in-laboratory plasma potassium. Current Interpretive Data was last revised on 2021. Cl, POC 106 97 - 110 mmol/L [facility] Ionized Ca, POC 5.05 4.50 - 5.10 mg/dL [facility] Glucose, POC 101 70 - 199 mg/dL [facility] Lactate, POC 3.7(H) 0.7 - 2.2 mmol/L [facility] O2 Sat, Melchor POC (Terrell) 98 % [facility] Base excess, POC -0.9 mmol/L [facility] HCO3, Melchor POC 23 20 - 30 mmol/L [facility] Hct, POC 27.0(L) 41.4 - 51.6 % [facility] Total Hb, POC 9.1(L) 13.8 - 17.2 g/dL [facility] O2 Sat, Melchor POC (Calc) 97 % [facility] Blood 07/23/2022 8:34 PM CDT 07/23/2022 8:34 PM CDT us Toro Mercado MD LAB POCT ORDERABLES - DEV ICE Final Result [facility] Department [place] [address] * (ABNORMAL) POC Blood Gas and Chemistries, Arterial - (07/23/2022 8:30 PM CDT) pH, Art POC 7.44 7.35 - 7.45 [facility] pCO2, Art POC 35 35 - 45 mmHg [facility] pO2, Art POC 89 83 - 108 mmHg [facility] Na, POC 139 135 - 145 mmol/L [facility] K POC 4.8 3.3 - 4.9 mmol/L [facility] Comment: Interpretive Data This method is not able to assess for hemolysis, which may falsely increase potassium concentrations. If further testing is needed to evaluate this result, consider in-laboratory plasma potassium. Current Interpretive Data was last revised on 2021. Cl, POC 106 97 - 110 mmol/L [facility] Ionized Ca, POC 5.16(H) 4.50 - 5.10 mg/dL [facility] Glucose, POC 102 70 - 199 mg/dL [facility] Lactate, POC 3.8(H) 0.7 - 2.2 mmol/L [facility] SO2 (terrell) arterial 98(H) 90 - 95 % [facility] Base excess, POC -0.1 mmol/L [facility] HCO3, Art POC 24 20 - 30 mmol/L [facility] Hct, POC 28.0(L) 41.4 - 51.6 % [facility] O2 Sat, Art POC (Calc) 97 % [facility] Total Hb, POC 9.2(L) 13.8 - 17.2 g/dL [facility] Blood 07/23/2022 8:30 PM CDT 07/23/2022 8:30 PM CDT us Toro Mercado MD LAB POCT ORDERABLES - DEV ICE Final Result Performing Organization Address [facility] Co de Phone Number [facility] [place] [address] * Check Sample (07/23/2022 11:46 AM CDT) ABO Rh O Positive [facility] HCLL OTHER 07/23/2022 11:4 6 AM CDT 07/23/2022 11:57 AM CDT Myla Hudson MD LAB BLOOD ORDERABLES Final R esult Performing Organization Address [facility] de Phone Number [facility] [place] [address] * XR Hand Left 3 or More [...] * POCT lactate (07/23/2022 11:27 AM CDT) Lactate POC i-STAT 2.1 0.7 - 2.2 mmol/L [facility] Blood 07/23/2022 11:2 7 AM CDT 07/23/2022 11:27 AM CDT us Myla Hudson MD LAB POCT ORDERABLES - DEVICE Final Result Performing Organization Address City/State/[facility] Co de Phone Number [facility] Department [place] [address] * (ABNORMAL) eGFR (07/23/2022 11:24 AM CDT) [facility] eGFR 40(L) 90 - 130 mL/min/1. 73 m2 [facility] Comment: Interpretive Data Reference Interval Normal ?>/= [...] MD LAB BLOOD ORDERABLES Final R esult [facility] Department [place] [address] * (ABNORMAL) Differential, auto (07/23/2022 11:24 AM CDT) Neutrophil abs 6.7(H) 1.7 - 6.5 K/cumm [facility] Imm gran abs 0.0 0.0 - 0.1 K/cumm [facility] Lymphocyte abs 2.1 0.8 - 3.3 K/cumm [facility] Monocyte abs 1.0(H) 0.2 - 0.8 K/cumm [facility] Eosinophil abs 0.1 0.0 - 0.5 K/cumm [facility] Basophil abs 0.1 0.0 - 0.1 K/cumm [facility] Neutrophil pct 67.0 % [facility] Comment: Interpretive Data Percent cell count reference ranges are not reported, since discordance with absolute values may lead to misinterpretation of CBC data. Current Interpretive Data was last revised on 2017. Imm gran pct 0.4 % [facility] Comment: Interpretive Data Percent cell count reference ranges are not reported, since discordance with absolute values may lead to misinterpretation of CBC data. Current Interpretive Data was last revised on 2017. Lymphocyte pct 21.4 % [facility] Comment: Interpretive Data Percent cell count reference ranges are not reported, since discordance with absolute values may lead to misinterpretation of CBC data. Current Interpretive Data was last revised on 2017. Monocyte pct 9.6 % [facility] Comment: Interpretive Data Percent cell count reference ranges are not reported, since discordance with absolute values may lead to misinterpretation of CBC data. Current Interpretive Data was last revised on 2017. Eosinophil pct 1.1 % [facility] Comment: Interpretive Data Percent cell count reference ranges are not reported, since discordance with absolute values may lead to misinterpretation of CBC data. Current Interpretive Data was last revised on 2017. Basophil pct 0.5 % [facility] Comment: Interpretive Data Percent cell count reference ranges are not reported, since discordance with absolute values may lead to misinterpretation of CBC data. Current Interpretive Data was last revised on 2017. Blood 07/23/2022 11:2 4 AM CDT 07/23/2022 11:30 AM CDT us Myla Hudson MD LAB BLOOD ORDERABLES Final R esult [facility] Department [place] [address] * (ABNORMAL) Basic metabolic panel (07/23/2022 11:24 AM CDT) Sodium 139 135 - 145 mmol/L [facility] Comment:Code Blue Specimen Potassium, pl 4.7 3.3 - 4.9 mmol/L [facility] Comment:Code Blue Specimen Chloride 104 97 - 110 mmol/L [facility] Comment:Code Blue Specimen CO2 25 22 - 32 mmol/L [facility] Comment:Code Blue Specimen Anion gap 10 2 - 15 mmol/L [facility] Comment:Code Blue Specimen BUN 28(H) 8 - 25 mg/dL [facility] Comment:Code Blue Specimen Creatinine 1.38(H) 0.80 - 1.30 mg/dL [facility] Comment:Code Blue Specimen Glucose 155 70 - 199 mg/dL [facility] Comment: Code Blue Specimen Interpretive Data Fasting [...] classification and Diagnosis of Diabetes Diabetes Care 202; 46: S19-S40. Current interpretive data was last revised 2022. Calcium 10.1 8.5 - 10.3 mg/dL [facility] Comment:Code Blue Specimen Blood 07/23/2022 11:2 4 AM CDT 07/23/2022 11:31 AM CDT Myla Hudson MD LAB BLOOD ORDERABLES Final R esult Performing Organization Address [facility]/ZIP Co de Phone Number [facility] Department [place] [address] * Extrinsic thromboelastometry (EXTEM) (07/23/2022 11:24 AM CDT) Clotting Time-Extrinsic 68 59 - 87 sec [facility] Comment:Code Blue Specimen Clot Formation Time-Extrinsic 84 45 - 131 sec [facility] Comment:Code Blue Specimen Angle-Extrinsic 73 65 - 83 Degree [facility] Comment:Code Blue Specimen Max Clot Firmness-Extrin sic 64 53 - 75 mm [facility] Comment:Code Blue Specimen Lysis 30-Extrinsic 100 85 - 100 % [facility] Comment:Code Blue Specimen Blood 07/23/2022 11:2 4 AM CDT 07/23/2022 11:31 AM CDT Myla Hudson MD LAB BLOOD ORDERABLES Edited Result - Final Performing Organization Address [facility] Co de Phone Number [facility] Department [place] [address] * Thrombocyte inhibited fibrinogen (FIBTEM) (07/23/2022 11:24 AM CDT) Maximum Clot Firm-Fibrinogen 14 9 - 29 mm [facility] Comment:Manjinder Blue Specimen Blood 07/23/2022 11:2 4 AM CDT 07/23/2022 11:31 AM CDT us Myla Hudson MD LAB BLOOD ORDERABLES Edited Result [place] [address] * Protime-INR (07/23/2022 11:24 AM CDT) PT 10.2 9.2 - 13.5 sec [facility] Comment:Code Blue Specimen INR 0.9 0.9 - 1.2 [facility] Comment: Code Blue Specimen Interpretive data Oral [...] ORDERABLES Final R esult Performing Organization Address [facility] [place] [address] * (ABNORMAL) aPTT (07/23/2022 11:24 AM CDT) aPTT 22(L) 27 - 37 sec [facility] Comment: Code Blue Specimen Interpretive Data Therapeutic heparin range: 60.0 - 94.0 seconds. Based on correlation with therapeutic heparin activity range of 0.3-0.7 Units/mL. Current interpretive data was last revised on 2020. Blood 07/23/2022 11:2 4 AM CDT 07/23/2022 11:31 AM CDT Myla Hudson MD LAB BLOOD ORDERABLES Final R esult Performing Organization Address [facility] [place] [address] * Ethanol (07/23/2022 11:24 AM CDT) Ethanol <10 <=10 mg/dL [facility] Comment: Code Blue Specimen Interpretive Data Legal limit of intoxication > or = 80 mg/dL Levels > or = 400 mg/dL are potentially TOXIC. Current interpretive data was last revised on 2018. Blood 07/23/2022 11:2 4 AM CDT 07/23/2022 11:31 AM CDT us Myla Hudson MD LAB BLOOD ORDERABLES Final R esult [facility] Department [place] [address] * (ABNORMAL) CBC with auto differential (07/23/2022 11:24 AM CDT) Pathologist [facility] WBC 10.0(H) 3.8 - 9.9 K/cumm [facility] Comment:Code Blue Specimen Hgb 11.4(L) 13.0 - 17.5 g/dL [facility] Hct 34.1(L) 38.9 - 50.3 % [facility] Plt 225 150 - 400 K/cumm [facility] MPV 10.4 9.1 - 12.3 fL [facility] RBC 3.74(L) 4.30 - 5.80 M/cumm [facility] MCV 91.2 81.3 - 96.4 fL [facility] MCH 30.5 27.1 - 33.3 pg [facility] [facility] MCHC 33.4 32.3 - 35.7 g/dL [facility] RDW CV 12.8 11.1 - 14.9 % [facility] R[facility] SD 42.6 35.7 - 48.1 fL [facility] NRBC abs 0.00 0.00 - 0.01 K/cumm [facility] Blood (Blood, Venous) 07/23/2022 11:24 AM CDT 07/23/2022 11:30 AM CDT Myla Hudson MD LAB BLOOD ORDERABLES Final R esult Performing Organization Address City/[facility]/ZIP Co de Phone Number [facility] [place] [address] * Blood gas, venous (07/23/2022 11:24 AM CDT) pH, Venous 7.39 7.32 - 7.43 [facility] Comment:Code Blue Specimen PCO2, Venous 43 40 - 50 [facility] Comment:Code Blue Specimen PO2, Venous 36 mmHg [facility] Comment: Code Blue Specimen Interpretive Data No Reference Range Established Current Interpretive Data was last revised on 2017. HCO3 Venous, Calculated 27 20 - 30 mmol/L [facility] Comment:Code Blue Specimen BE, venous 1 mmol/L [facility] Comment: Code Blue Specimen Interpretive Data No Reference Range Established Current Interpretive Data was last revised on 2017. Blood 07/23/2022 11:2 4 AM CDT 07/23/2022 11:30 AM CDT us Myla Hudson MD LAB BLOOD ORDERABLES Final R esult Performing Organization Address [facility] Co de Phone Number [facility] [place] [address] * Type and screen (07/23/2022 11:24 AM CDT) Unique, indirect Negative [facility] ABO Rh O Positive [facility] Blood 07/23/2022 11:2 4 AM CDT 07/23/2022 11:31 AM CDT Narrative [facility] - 07/23/2022 12:23 PM CDT Has the patient had Daratumumab or Isatuximab in the past 6 months?->Unknown us Myla Hudson MD LAB BLOOD BANK TEST ORDERABL ES Final Result Performing Organization Address City/[facility]/ZIP Co de Phone Number [facility] [place] [address] * POCT glucose (07/23/2022 11:19 AM CDT) Glucose, POC 156 70 - 199 mg/dL [facility] Blood 07/23/2022 11:1 9 AM CDT 07/23/2022 11:19 AM CDT Myla Hudson MD LAB POCT ORDERABLES - DEVICE Final Result Performing Organization Address [facility] de Phone Number [facility] Department [place] [address] * POCT ketone, blood (07/23/2022 11:19 AM CDT) Ketones, Blood, POC 0.2 0.0 - 0.5 mmol/L [facility] Blood 07/23/2022 11:1 9 AM CDT 07/23/2022 11:19 AM CDT us Myla Hudson MD LAB POCT ORDERABLES - DEVICE Final Result Performing Organization Address [facility] de Phone Number [facility] Department [place] [address] documented in this encounter Visit Diagnoses Diagnosis Injury of left hand, initial encounter- Primary Injury of left hand, initial encounter Hand laceration involving tendon, left, initial encounter Nerve injury Injury to nerves, unspecified site Injury of left hand, initial encounter documented in this encounter Admitting Diagnoses Diagnosis [...] Given 07/24/2022 8:01 AM CDT 81 mg dipyridamole (PERSANTINE) tablet 25 mg 25 mg, oral, 3 times daily, First dose on Thu07/24/22 at 0900 Given 07/24/2022 8:02 AM CDT 25 mg heparin 10,000 units in sodium chloride 0.9% 1,000 mL As needed, Starting on Thu07/23/22 at 2120, Intra-Op Given 07/23/2022 9:21 PM CDT 1,000 mL Left Hand losartan (COZAAR) tablet 100 mg 100 mg, oral, Daily, First dose on Thu07/24/22 at 0900, Phase I & Post-op Floor Given 07/24/2022 8:02 AM CDT 100 mg oxyCODONE (ROXICODONE) tablet 5 mg 5 mg, oral, Every 4 hours PRN, 2nd line for pain, Starting on Thu07/23/22 at 2031, Phase I & Post-op Floor, Indications: PainIndications:Pain Given 07/24/2022 12:31 AM CDT [address] (PROTONIX) extended release tablet 40 mg 40 mg, oral, Daily, First dose on Thu07/24/22 at 0900, Phase I & Post-op Floor, Do not crush, chew, cut, dissolve, open or otherwise manipulate tablet/capsule., Indications: Stress Ulcer ProphylaxisIndications:Stress Ulcer Prophylaxis Given 07/24/2022 8:02 AM CDT 40 mg polyethylene glycol (MIRALAX) packet 17 g 17 g, oral, Daily, First dose on Thu07/24/22 at 0900, Indications: constipationIndications:constipati on Given 07/24/2022 8:03 AM CDT 17 g pravastatin (PRAVACHOL) tablet 40 mg 40 mg, oral, Daily, First dose on Jael 07/24/22 at 0900, Phase I & Post-op Floor Given 07/24/2022 8:02 AM CDT 40 mg documented in this encounter Discontinued Medications Medication [...] Bhavya Rushing RN)1120 (Given - Provider: Lance Mathew, GREG) amLODIPine (NORVASC) tablet 5 mg 5 mg, oral, Daily, First dose on Jael 07/24/22 at 0900, Phase I & Post-op Floor 0802 (Given - Provid er: Lance Mathew RN) aspirin chewable tablet 81 mg 81 mg, oral, Daily, First dose on Jael 07/24/22 at 0900, Phase I & Post-op Floor 0801 (Given - Provid er: Lance Mathew, GREG) ceFAZolin (ANCEF) 2,000 mg/20 mL in sterile [...] on Jael 07/24/22 at 0900, Indications: constipation 08 (Given - Provid er: Lance Mathew [...] Pre-Op 1519 (New Bag - Provider: Elaine Manzo, GREG)191 (Rate/Dose Verify - Provider: Sarah Griffin CRNA)2032 (Anesthesia Volume Adjustment - Provider: Magda Banks CRNA)214 (Paused - Provider: Magda Banks CRNA - Comment: Switch to gravity)214 (Restarted - Provider: Magda Banks CRNA)2303 (Anesthesia Volume Adjustment - Provider: Fahad Todd DO) 0129 (Stopped - Provider: Bhavya Rushing, GREG) PRN Medication Order 07/22/2022 07/23/2022 07/24/2022 fentaNYL (SUBLIMAZE) preservative free injection (COMPLETED) Code/trauma/sedation medication, Starting on Thu07/23/22 at 1115 1115 (Given - Provider: Myla Rodriguez MD)1116 (Canceled Entry - Provider: Ricki Estevez RN - Comment: Automatically documented as Canceled Entry when linked to one-step medication.) heparin 10,000 units in sodium chloride 0.9% 1,000 mL (CANCELED) As needed, Starting on Thu07/23/22 at 2121, Intra-Op 212 (Given - Provider: Vimal Stringer MD - Comment: 1000ml given to sterile field) morphine injection 4 mg (CANCELED) 4 mg, intravenous, Administer over 4 Minutes, Every 1 hour PRN, 1st line for pain, hold for somnolecne or RR<12, Starting on Thu07/23/22 at 1133 1434 (Given - Provider: Ricik Estevez RN)1455 (APR Hold - Provider: Automatic Transfer Provider [...] Count Last Ordered Date First Ordered Date dipyridamole (PERSANTINE) tablet 25 mg 1 acetaminophen (TYLENOL) tablet 1,000 mg 1 0 07/23/2022 amLODIPine (NORVASC) tablet 5 mg 1 07/24/19 aspirin chewable tablet 81 mg 1 07/23/2022 ceFAZolin (ANCEF) 2,000 mg/2 0 mL in sterile water (premix) 2,000 mg 2 07/23/2022 famotidine (PEPCID) 20 mg/50 mL in sodium chloride 0.9% (premix) 20 mg 1 07/23/2022 fentaNYL (SUBLIMAZE) preserv ative free injection 1 07/23/2022 fentaNYL (SUBLIMAZE) preserv ative free injection 50 mcg 1 07/23/2022 heparin 100,000 units in sod ium chloride 0.9% 1,000 mL 1 07/23/2022 HYDROmorphone (DILAUDID) injection 0.2 mg 1 07/23/2022 HYDROmorphone (DILAUDID) injection 0.4 mg 1 07/23/2022 Lactated Ringer's (LR) infusion 1 losartan (COZAAR) tablet 100 mg 1 3 morphine injection 4 mg 1 07/23/2022 naloxone (NARCAN) 0.4 mg/mL injection 0.04-0.4 mg 1 07/23/2022 ondansetron (ZOFRAN) injection 4 mg 1 07/23 oxyCODONE (ROXICODONE) tablet 5 mg 1 2022 pantoprazole (PROTONIX) e xtended release tablet 40 mg 1 07/23/2022 polyethylene glycol (MIRALAX) packet 17 g 1 07/23/2022 pravastatin (PRAVACHOL) tablet 40 mg 1 07/01 prochlorperazine (COMPAZINE) injection 5 mg 1 07/23/2022 sodium chloride 0.9% irrigation 1,000 mL 1 07/23/2022 Lab Orders Without Results Count Last Ordered D ate First Ordered Date POCT LACTATE - DEVICE 1 07/23/2022 POCT [id number],WB - ISTAT 1 07/24/19 Diet Count Last [...] 07/23/2022 documented in this encounter Care Teams Assistant Professor Of Life Sciences Relationship Specialty Start Date End Date Unknown, Notinfile PCP - General 07/23/22 10/23/22 Jaylon Gudino MD [address] [place] [address] 07/23/22 documented as of this encounter
--- OUTSIDE RECORDS SUMMARY | 2024-03-03 11:45 | XMS_ITS | Encounter Summary ---
Author Organization [facility] Healthcare Address [address] [place] [address] Care Team Providers Care Rail Car Painter/Sandblaster Name Role Phone Jaylon Gudino MD Primary Care Provider [phone] Encounter Details Date Type Department Care Team (Late st Contact Info) Description 10/18/2019 7:20 AM CDT Lab [address] [address] Jaylon Gudino MD [address] [place] [address] Discharge Disposition: Discharge to home or self care Social History Tobacco Use Types Packs/Day Years Used Date Smoking Tobacco: Former Sex and Gender Information Value Date Recorded Sex Assigned at Not on file Legal Sex Male 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 Gender Identity Not on file Sexual Orientation Not on file documented as of this encounter Discharge Disposition Disposition Code Departure Means Destination Discharge to home or self care documented in this encounter Plan of Treatment Not on file documented as of this encounter Procedures Procedure Name Priority Date/Time Associated Diagnosis Comments EGFR Routine 10/18/2019 7:20 AM CDT LIPID PANEL Routine 10/18/2019 7:20 AM CDT COMPREHENSIVE METABOLIC PANEL Routine 10/18/2019 7:20 AM CDT documented in this encounter Results * eGFR (10/18/2019 7:20 AM CDT) eGFR 63 mL/min/1.7 3 m2 [facility] ([place]) Comment: Interpretive Data Reference Interval Normal ?>/= 90 mL/min/1.73m2 Mildly decreased* ? 60 - 89 mL/min/1.73m2 Mildly to moderately decreased ?45 - 59 mL/min/1.73m2 Moderately to severely decreased ??30 - 44 mL/min/1.73m2 Severely decreased ?15 - 29 mL/min/1.73m2 Kidney Failure ?< 15 ??mL/min/1.73m2 *Relative to young adult level If -Moroccan multiply value by 1.16. Estimated glomerular filtration [...] was last reviewed 2015. Blood specimen (specimen) 10/18/2019 7:20 AM CDT 10/18/2019 7:53 AM CDT us Jaylon Gudino MD LAB BLOOD ORDERABLES Final Result Performing Organization Address City/State/[facility] Co de Phone Number [facility] ([place]) 1 [facility] Department [place] [address] * (ABNORMAL) Lipid panel (10/18/2019 7:20 AM CDT) Cholesterol 169 30 - 199 mg/dL [facility] ([place]) [...] Data was last revised on 2017. Triglycerides 203(H) <=149 mg/dL [facility] ([place]) Comment: Interpretive Data [...] Data was last revised on 2017. HDL 58 >=40 mg/dL [facility] ([place]) Comment: Interpretive Data [...] was last revised on 2017. LDL, calculated 70 <=129 mg/dL [facility] ([place]) Comment: Interpretive [...] was last revised on 2017. Non-HDL Cholesterol 111 mg/dL [facility] ([place]) Comment: Interpretive Data [...] revised on 2017. Chol/HDL ratio 3 [facility] ([place]) Blood specimen (specimen) 10/18/2019 7:20 AM CDT 10/18/2019 7:53 AM CDT us Jaylon Gudino MD LAB BLOOD ORDERABLES Final Result [facility] ([place]) 1 [facility] [place] [address] * Comprehensive metabolic panel (10/18/2019 7:20 AM CDT) Sodium 141 135 - 145 mmol/L [facility] ([place]) Potassium, pl 4.0 3.3 - 4.9 mmol/L [facility] ([place]) Chloride 106 97 - 110 mmol/L [facility] ([place]) CO2 25 22 - 32 mmol/L [facility] ([place]) Anion gap 10 2 - 15 mmol/L [facility] ([place]) BUN 24 8 - 25 mg/dL [facility] ([place]) Creatinine 1.12 0.80 - 1.30 mg/dL [facility] ([place]) Glucose 124 70 - 199 mg/dL [facility] ([place]) [...] interpretive data was last revised 2017. Calcium 9.9 8.5 - 10.3 mg/dL [facility] ([place]) Bilirubin, total 0.4 0.1 - 1.2 mg/dL [facility] ([place]) Protein, pl 7.0 6.5 - 8.5 g/dL [facility] ([place]) Albumin 4.5 3.5 - 5.0 g/dL [facility] ([place]) Alk phos 55 40 - 130 Units/L [facility] ([place]) ALT 21 7 - 55 Units/L [facility] ([place]) AST 24 10 - 50 Units/L [facility] ([place]) Blood specimen (specimen) 10/18/2019 7:20 AM CDT 10/18/2019 7:53 AM CDT us Jaylon Gudino MD LAB BLOOD ORDERABLES Final Result [facility] ([place]) 1 [facility] Department [place] [address] documented in this encounter Visit Diagnoses Not on filedocumented in this encounter Care Teams Rail Car Painter/Sandblaster Relationship Specialty Start Date End Date Jaylon Gudino MD [address] [place] [address] PCP - General 07/07/16 07/22/22 documented as of this encounter
--- OUTSIDE RECORDS SUMMARY | 2024-03-03 11:45 | XMS_ITS | Encounter Summary ---
Author Organization [facility] Address [address] [facility] [address] [place] [address] Phone Care Team Providers Care Optical Laboratory Manager Name Role Phone Jaylon Gudino MD Primary Care Provider [phone]- [phone] Reason for Referral * Diagnostic Imaging (Routine) - Closed Specialty Diagnoses / Procedures Referred By Lilly kraft Referred To Contact Diagnoses Finger pain, left Procedures XR Hand Left 3 or More Views Ranjit Barry MD [address] [facility] [phone] [place] [address] Phone: tel: fax: [address] [address] Referral ID Status Reason Start Date Expiration Date Visits Re quested Visits Authorized [id number] Closed 02/15/2021 03/17/2022 1 1 NESS MANAGEMENT ASSOCIATE Reason for Visit * Consultation (Routine) - Closed Specialty Diagnoses / Procedures Referred By Lilly kraft Referred To Contact Plastic Surgery Diagnoses Pain involving joint of finger of left hand Jaylon Gudino MD [address] [facility] [place] [address] Phone: tel: fax: Ranjit Barry MD Phone: tel: fax: Referral ID Status Reason Start Date Expiration Date V isits Requested Visits Authorized [id number] Closed Specialty Services Required 01/21/2021 02/20/2022 99 99 Encounter Details Date Type Department Care Team (Late st Contact Info) Description 02/18/2021 8:15 AM BUSINESS MANAGEMENT ASSOCIATE Office Visit [facility] Surgery [address] [place] [address] [address] [place] [id number] Ranjit Barry MD [address] [facility] [phone] [place] [address] Finger pain, left (Primary Dx); Pain involving joint of finger of left hand; Trigger middle finger of right hand; Trigger ring finger of left hand Social History Tobacco Use Types Packs/Day Years Used Date Smoking Tobacco: Former Sex and Gender Information Value Date Recorded Sex Assigned at Not on file Legal Sex Male 3:56 AM BUSINESS MANAGEMENT ASSOCIATE Gender Identity Not on file Sexual Orientation Not on file documented as of this encounter Progress Notes * Ranjit Barry MD - 02/18/2021 8:15 AM CST Plastic, Reconstructive, and Hand Surgery History and Physical Patient: Bacilio Ramirez : 1945 Date of Service: 02/18/2021 PCP: Jaylon Gudino MD Referring Provider: Jaylon Gudino MD Insurance Information: Payor: MEDICARE / Plan: MEDICARE PART A & B / Product Type: MEDICARE TRADITIONAL / Chief Complaint: Hand pain Date of injury/Start of symptoms: 2 months How did the injury occur if there was an injury: None Worker's Compensation: No History of Present Illness: Bacilio Ramirez is a 75 y.o. right hand dominant male who presents with two-month history of pain tothe left ring finger. This is described as a sharp pain that has been worsening recently. This is located along the MP and PIP joints of the left ring finger. He feels that his finger is jammed and it is difficult for him to bend his finger and also straighten it. At times, he has to use his other h and to straighten out his finger. He has never had this before. He denies any specific trauma. He has been having similar issues on the right long finger for the last 3 weeks but it is not as severe as the left side. He had x-rays performed for further evaluation. He denies any numbness and tingling. He denies any other complaints. He does not smoke. He does not have diabetes. He takes a baby aspirin daily. 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 History reviewed. No pertinent past medical history. History reviewed. No pertinent surgical history. History reviewed. No pertinent family history. Social History Socioeconomic History ??? Marital status: Spouse name: None ??? Number of children: None ??? Years of education: None ??? Highest education level: None Occupational History ??? None Tobacco Use ??? Smoking status: Former Smoker ??? Smokeless tobacco: None Substance and Sexual Activity ??? Alcohol use: None ??? Drug use: None ??? Sexual activity: None Other Topics Concern ??? None Social History Narrative ??? None Social Determinants of Health Financial Resource Strain: Not on file Food Insecurity: Not on file Transportation Needs: Not on file Physical Activity: Not on file Stress: Not on file Social Connections: Not on file Intimate Partner Violence: Not on file Housing Stability: Not on file Allergies Allergen Reactions ??? Penicillins Hives ??? Sulfa (Sulfonamide Antibiotics) Rash ??? Moxifloxacin ??? Other Unknown ??? Simvastatin Other (See comments) MUSCLE PAIN Current Outpatient Medications on File Prior to Visit Medication Sig Dispense Refill ??? amLODIPine (NORVASC) 5 mg tablet Take 1 tablet by mouth 2 (two) times a day ??? losartan (COZAAR) 100 mg tablet Take 1 tablet by mouth daily ??? pravastatin (PRAVACHOL) 40 mg tablet Take 2 tablets by mouth nightly ??? RABEprazole DR (ACIPHEX) 20 mg EC tablet TAKE 2 TABLETS BY MOUTH ONCE DAILY. TAKE 30-60 MINUTESBEFORE SUPPER. No current facility-administered medications on file prior to visit. Review of Systems: A full review of system was obtained, reviewed, and scanned into the chart. Physical Exam: There were no vitals taken for this visit. Gen: NAD, A&O x3 Pulm: unlabored CV: regular rate Bilateral Hand: Tenderness to palpation over the A1 mame over the left ring and right long fingers. This is significantly worse on the left ring finger. Grinding and clicking is noted with very mild triggering on the left ring finger. The right long finger does not exhibit significant grinding. Full fist otherwise. Two-point discrimination within normal limits. Cap refill 2-3 seconds. Diagnostic Studies: I independently interpreted the following diagnostic studies and my findings are: Left hand X-ray: Three view x-ray of the left hand demonstrates mild osteoarthritis within the handand wrist. No major abnormality noted Assessment and Plan: 75 y.o. right hand dominant male who presents with left ring finger and right long finger pain, consistent with triggering. I reviewed the findings with him at length. 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 This is significantly worse on the left ring finger. I explained the natural history of trigger finger as well as pathophysiology. I reviewed non operative and operative management of this procedure. We elected to proceed with Kenalog injections. I explained that this has about a 90% success rate with 1 injection and that the other 10% of the time he would likely require repeat injections or surgery. He verbalizes understanding of this. I did explain that the steroid injection may take several days to weeks to fully kick in. I also explained that he may have a flare react ion tonight that leads into tomorrow. Of this is to occur, he is to utilize ice, elevation, and rest of his hand. He verbalizes understanding of this. Please see procedure note further details. All questions were answered. Patient verbalizes understanding and agreement with this plan. Follow up: As needed Restriction: None After informed consent was obtained, the volar MP joint of the left ring and right long fingers were prepped with alcohol. 0.5 cc Kenalog (40 mg/mL) and 0.5 cc 1% lidocaine were injected into the A1 mame of the left ring and right long fingers. Hemostasis was excellent. Band-Aids were applied. Patient tolerated the procedure well without issue. I spent 30 minutes on this patient encounter which included review of medical records. Over half the time was spent with the patient face to face discussing the treatment plan, counseling and coordinating care. Ranjit Barry MD 02/18/21 6:03 PM This document was transcribed using voice recognition software without a human community relations specialist. Itmay contain typographical, grammatical, and/or syntax errors. NESS MANAGEMENT ASSOCIATE documented in this encounter Plan of Treatment Not on file documented as of this encounter Procedures Procedure Name Priority Date/Time Associated Diagnosis Comments XR HAND LEFT 3 OR MORE VIEWS Schedule Routine, Read Routine (OP Routine) 02/15/2021 10:54 AM BUSINESS MANAGEMENT ASSOCIATE Finger pain, left documented in this encounter Results * XR Hand Left 3 or More Views (02/15/2021 10:54 AM BUSINESS MANAGEMENT ASSOCIATE) Anatomical Region Laterality Modality Upper Extremities, Hand Left Computed Radiography 02/15/2021 12:3 7 PM BUSINESS MANAGEMENT ASSOCIATE Narrative 02/15/2021 12:47 PM BUSINESS MANAGEMENT ASSOCIATE EXAM DESCRIPTION: ?? XR HAND LEFT 3 OR MORE VIEWS REASON FOR STUDY: ?? finger eval, Left hand ?? 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 TECHNIQUE: ?? Frontal, lateral, and oblique ??radiographic views acquired of the left hand. COMPARISON: ?? None FINDINGS: No acute fracture is seen. ??There is no radiopaque foreign body. ??There is mild osteoarthritis in the wrist and hand. IMPRESSION: ??No acute osseous abnormality. THIS IS AN ELECTRONICALLY VERIFIED FINAL REPORT 02/15/2021 12:47 PM - Electronically signed by ??Cleveland Shafer M.D. 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 COMPARISON: None FINDINGS: No acute fracture is seen. There is no radiopaque foreign body. There is mild osteoarthritis in the wrist and hand. IMPRESSION: No acute osseous abnormality. THIS IS AN ELECTRONICALLY VERIFIED FINAL REPORT 02/15/2021 12:47 PM - Electronically signed by Cleveland Shafer M.D. JR: Report ID: [id number] Reading Location: [place] [address] Ranjit Barry MD IMG XR PROCEDURES Fi nal Result documented in this encounter Visit Diagnoses Diagnosis Finger pain, left- Primary Pain in soft tissues of limb Pain involving joint of finger of left hand Trigger middle finger of right hand Trigger ring finger of left hand documented in this encounter Historical Medications * This list may reflect changes made after this encounter. pravastatin (PRAVACHOL) 40 mg tabletIndications :hyperlipidemia Take 2 tablets (80 mg total) by mouth nightly 02/15/2021 amLODIPine (NORVASC) 5 mg tabletIndications :hypertension Take 1 tablet (5 mg total) by mouth 2 (two) times a day 12/03/[address] (ACIPHEX) 20 mg EC tablet TAKE 2 TABLETS BY MOUTH ONCE DAILY. TAKE 30-60 MINUTES BEFORE SUPPER. 11/06/2020 10/21/2022 losartan (COZAAR) 100 mg tablet Take 1 tablet by mouth daily 12/03/2020 10/21/2022 added in this encounter Orders Outpatient Referral Count Last Ordered Date Fir st Ordered Date AMB REFERRAL TO PLASTIC SURGERY 1 1 documented in this encounter Care Teams Optical Laboratory Manager Relationship Specialty Start Date End Date Jaylon Gudino MD [address] [place] [address] PCP - General 07/07/16 07/22/22 documented as of this encounter
--- OUTSIDE RECORDS SUMMARY | 2024-03-03 11:45 | XMS_ITS | Encounter Summary ---
Author Organization [facility] Address [address] [place] [address] Phone Care Team Providers Care Mmd Unit Teacher Name Role Phone Unknown, Notinfile Primary Care Provider Unavail able Jaylon Gudino MD Unavailable Encounter Details Date Type Department Care Team (Late st Contact Info) Description 08/04/2022 Documentation [facility] Occupational Therapy [address] [facility] 6th [place] [address] [place] [id number] Morgan Mcnair, OT [address] [facility] [address] [place], [place] [id number] Social History Tobacco Use Types Packs/Day Years [...] on file Legal Sex Male 3:56 AM CLINICAL TRIALS SYSTEMS ADMINISTRATOR Gender Identity Not on file Sexual Orientation Not on file documented as of this encounter Progress Notes * Morgan Wilson, OT - 08/04/2022 6:19 PM CDT Images from the original note were not included. Completed neuraptive testing in clinic today after visit with Izzy Jarquin, PT, CHT. Provided therapy order and clinic information to be seen closer to home at [facility]. Pt understands to follow up on Thursday for a dressing change and review of exercises after MD appointment. Start time: 4:15pm End time: 5:00pm KAREN Sellers, OTR/L documented in this encounter Plan of Treatment Not on file documented as of this encounter Visit Diagnoses Not on filedocumented in this encounter Care Teams Mmd Unit Teacher Relationship Specialty Start Date End Date Unknown, Notinfile PCP - General 07/23/22 10/23/22 Jaylon Gudino MD [address] [place] [address] 07/23/22 documented as of this encounter
--- OUTSIDE RECORDS SUMMARY | 2024-03-03 11:45 | XMS_ITS | Encounter Summary ---
Author Organization [facility] Healthcare Address [address] [place] [address] Care Team Providers Care Utility Gelatin Maker Name Role Phone Jaylon Gudino MD Primary Care Provider +1- [phone] Encounter Details Date Type Department Care Team (Late st Contact Info) Description 03/06/2020 8:35 AM PHERESIS SPECIALIST [address] [address] Dash[place] [address] Discharge Disposition: Discharge to home or self care Social History Tobacco Use Types Packs/Day Years Used Date Smoking Tobacco: Former Sex and Gender Information Value Date Recorded Sex Assigned at Not on file Legal Sex Male 3:56 AM PHERESIS SPECIALIST Gender Identity Not on file Sexual Orientation Not on file documented as of this encounter Discharge Disposition Disposition Code Departure Means Destination Discharge to home or self care documented in this encounter Plan of Treatment Not on file documented as of this encounter Procedures Procedure Name Priority Date/Time Associated Diagnosis Comments EGFR Routine 03/06/2020 8:35 AM PHERESIS SPECIALIST BUN Routine 03/06/2020 8:35 AM PHERESIS SPECIALIST CREATININE Routine 03/06/2020 8:35 AM PHERESIS SPECIALIST HEPATIC FUNCTION PANEL Routine 03/06/2020 8:35 AM PHERESIS SPECIALIST documented in this encounter Results * eGFR (03/06/2020 8:35 AM PHERESIS SPECIALIST) eGFR 58 mL/min/1.7 3 m2 [facility] Comment: Interpretive Data Reference Interval Normal ?>/= 90 mL/min/1.73m2 Mildly decreased* ? 60 - 89 mL/min/1.73m2 Mildly to moderately decreased ?45 - 59 mL/min/1.73m2 Moderately to severely decreased ??30 - 44 mL/min/1.73m2 Severely decreased ?15 - 29 mL/min/1.73m2 Kidney Failure ?< 15 ??mL/min/1.73m2 *Relative to young adult level If -Hungarian multiply value by 1.16. Estimated glomerular filtration [...] was last reviewed 2015. Blood specimen (specimen) 03/06/2020 8:35 AM PHERESIS SPECIALIST 03/06/2020 9:07 AM PHERESIS SPECIALIST Dashawn Hou MD LAB BLOOD ORDERABLES Fi nal Result [facility] 1 [facility] Department [place] [address] * Hepatic function panel (03/06/2020 8:35 AM PHERESIS SPECIALIST) Pathologist [facility] Bilirubin, total 0.5 0.1 - 1.2 mg/dL [facility]) Bilirubin, direct <0.2 0.1 - 0.3 mg/dL [facility]) Protein, pl 7.0 6.5 - 8.5 g/dL [facility]) Albumin 4.6 3.5 - 5.0 g/dL [facility]) Alk phos 58 40 - 130 Units/L [facility]) ALT 25 7 - 55 Units/L [facility]) AST 27 10 - 50 Units/L [facility]) Blood specimen (specimen) 03/06/2020 8:35 AM PHERESIS SPECIALIST 03/06/2020 9:07 AM PHERESIS SPECIALIST Dashawn Hou MD LAB BLOOD ORDERABLES Fi nal Result [facility] ([place] 1 [facility] [place] [place] [address] * Creatinine (03/06/2020 8:35 AM PHERESIS SPECIALIST) Creatinine 1.20 0.80 - 1.30 mg/dL [facility]) Blood specimen (specimen) 03/06/2020 8:35 AM PHERESIS SPECIALIST 03/06/2020 9:07 AM PHERESIS SPECIALIST Dashawn Hou MD LAB BLOOD ORDERABLES Fi nal Result [facility] ([place]) 1 [facility] [place] [place] [address] * BUN (03/06/2020 8:35 AM PHERESIS SPECIALIST) BUN 19 8 - 25 mg/dL [facility]) Blood specimen (specimen) 03/06/2020 8:35 AM PHERESIS SPECIALIST 03/06/2020 9:07 AM PHERESIS SPECIALIST Dashawn Hou MD LAB BLOOD ORDERABLES Fi nal Result [facility] ([place]) 1 [facility] [place] [place] [address] documented in this encounter Visit Diagnoses Not on filedocumented in this encounter Care Teams Utility Gelatin Maker Relationship Specialty Start Date End Date Jaylon Gudino MD [address] [place] [address] PCP - General 07/07/16 07/22/22 documented as of this encounter
--- OUTSIDE RECORDS SUMMARY | 2024-03-03 11:45 | XMS_ITS | Encounter Summary ---
Author Organization [facility] Healthcare Address [address] [place] [address] Care Team Providers Care Supervisor Sandblaster Name Role Phone Jaylon Gudino MD Primary Care Provider +1- [phone] Encounter Details Date Type Department Care Team (Late st Contact Info) Description 01/12/2019 7:10 AM WATER RESOURCE CONSULTANT [address] [address] Jaylon Gudino MD [address] [place] [address] Discharge Disposition: Discharge to home or self care Social History Tobacco Use Types Packs/Day Years Used Date Smoking Tobacco: Former Sex and Gender Information Value Date Recorded Sex Assigned at Not on file Legal Sex Male 3:56 AM WATER RESOURCE CONSULTANT Gender Identity Not on file Sexual Orientation Not on file documented as of this encounter Discharge Disposition Disposition Code Departure Means Destination Discharge to home or self care documented in this encounter Plan of Treatment Not on file documented as of this encounter Procedures Procedure Name Priority Date/Time Associated Diagnosis Comments EGFR Routine 01/12/2019 7:11 AM WATER RESOURCE CONSULTANT PSA SCREEN Routine 01/12/2019 7:11 AM WATER RESOURCE CONSULTANT LIPID PANEL Routine 01/12/2019 7:11 AM WATER RESOURCE CONSULTANT COMPREHENSIVE METABOLIC PANEL Routine 01/12/2019 7:11 AM WATER RESOURCE CONSULTANT documented in this encounter Results * eGFR (01/12/2019 7:11 AM WATER RESOURCE CONSULTANT) eGFR 59 mL/min/1.7 3 m2 [facility] Comment: Interpretive Data Reference Interval Normal ?>/= 90 mL/min/1.73m2 Mildly decreased* ? 60 - 89 mL/min/1.73m2 Mildly to moderately decreased ?45 - 59 mL/min/1.73m2 Moderately to severely decreased ??30 - 44 mL/min/1.73m2 Severely decreased ?15 - 29 mL/min/1.73m2 Kidney Failure ?< 15 ??mL/min/1.73m2 *Relative to young adult level If -Indonesian multiply value by 1.16. Estimated glomerular filtration [...] was last reviewed 2015. Blood specimen (specimen) 01/12/2019 7:11 AM WATER RESOURCE CONSULTANT 01/12/2019 7:52 AM WATER RESOURCE CONSULTANT Jaylon Gudino MD LAB BLOOD ORDERABLES Final Result [facility] ([place] 1 [facility] Department [place] [address] * (ABNORMAL) Lipid panel (01/12/2019 7:11 AM WATER RESOURCE CONSULTANT) Cholesterol 169 30 - 199 mg/dL [facility] ([place]) Comment: Interpretive Data Ages < or [...] Data was last revised on 2017. Triglycerides 251(H) <=149 mg/dL [facility] ([place]) Comment: Interpretive [...] on 2017. HDL 56 >=40 mg/dL [facility] ([place]) Comment: Interpretive [...] was last revised on 2017. LDL, calculated 63 <=129 mg/dL [facility] ([place]) Comment: Interpretive [...] was last revised on 2017. Non-HDL Cholesterol 113 mg/dL [facility] ([place]) Comment: Interpretive Data [...] 3 [facility] ([place]) Blood specimen (specimen) 01/12/2019 7:11 AM WATER RESOURCE CONSULTANT 01/12/2019 7:46 AM WATER RESOURCE CONSULTANT us Jaylon Gudino MD LAB BLOOD ORDERABLES Final Result Performing Organization Address City/[facility]/ZIP Co de Phone Number [facility] ([place]) 1 [facility] [employer] [place] [address] * PSA screen (01/12/2019 7:11 AM WATER RESOURCE CONSULTANT) PSA-Total 0.48 <=6.20 ng/mL [facility] ([place]) Comment: Interpretive Data ?AGE ? SEX ?REFERENCE INTERVAL 0 minutes-150 years ?Female ?None 0 minutes-49 years ? Male ?None ? 50-59 years ? Male ?0-3.90 ? 60-69 years ? Male ?0-5.40 ? 70-79 years ? Male ?0-6.20 ? 80-150 years ?Male ?0-6.20 Current interpretive data last revised 2018. Testing performed by: [facility], [address] [place] [address]., [id number] Blood specimen (specimen) 01/12/2019 7:11 AM WATER RESOURCE CONSULTANT 01/12/2019 12:05 PM WATER RESOURCE CONSULTANT Narrative [facility] ([place]) - 01/12/2019 12:28 PM WATER RESOURCE CONSULTANT fax [phone] Faxed results to [phone] 01/12/2019 08:33:27 WATER RESOURCE CONSULTANT [id number] us Jaylon Gudino MD LAB BLOOD ORDERABLES Final Result Performing Organization Address City/[facility]/ZIP Co de Phone Number [facility] ([place]) 1 [facility] [place] [address] * Comprehensive metabolic panel (01/12/2019 7:11 AM WATER RESOURCE CONSULTANT) Sodium 143 135 - 145 mmol/L [facility]) Potassium, pl 3.9 3.3 - 4.9 mmol/L [facility]) Chloride 103 97 - 110 mmol/L [facility]) CO2 25 22 - 32 mmol/L [facility]) Anion gap 15 2 - 15 mmol/L [facility]) BUN 23 8 - 25 mg/dL [facility]) Creatinine 1.20 0.80 - 1.30 mg/dL [facility]) Glucose 125 70 - 199 mg/dL [facility] ([place]) [...] interpretive data was last revised 2017. Calcium 9.5 8.5 - 10.3 mg/dL [facility]) Bilirubin, total 0.5 0.1 - 1.2 mg/dL [facility] ([place]) Protein, pl 7.0 6.5 - 8.5 g/dL [facility]) Albumin 4.5 3.5 - 5.0 g/dL [facility]) Alk phos 54 40 - 130 Units/L [facility]) ALT 25 7 - 55 Units/L [facility]) AST 28 10 - 50 Units/L [facility]) Blood specimen (specimen) 01/12/2019 7:11 AM WATER RESOURCE CONSULTANT 01/12/2019 7:46 AM WATER RESOURCE CONSULTANT us Jaylon Gudino MD LAB BLOOD ORDERABLES Final Result [facility] 1 [facility] Department [place] [address] documented in this encounter Visit Diagnoses Not on filedocumented in this encounter Care Teams Supervisor Sandblaster Relationship Specialty Start Date End Date Jaylon Gudino MD [address] [place] [address] PCP - General 07/07/16 07/22/22 documented as of this encounter
--- OUTSIDE RECORDS SUMMARY | 2024-03-03 11:45 | XMS_ITS | Encounter Summary ---
Author Organization [facility] Address [address] [place] [address] Care Team Providers Care Grain Wafer Machine Operator Name Role Phone Jaylon Gudino MD Primary Care Provider +1- [phone] Reason for Referral * Diagnostic Imaging (Routine) - Closed Specialty Diagnoses / Procedures Referred By Lilly kraft Referred To Contact Diagnoses Bilateral carotid artery stenosis Procedures US Carotids Duplex Bilateral Jaylon Gudino MD Phone: tel: fax: [address] [address] Referral ID Status Reason Start Date Expiration Date Visits Re quested Visits Authorized [id number] Closed 07/19/2018 01/28/2020 1 1 Reason for Visit * Diagnostic Imaging (Routine) - Closed Specialty Diagnoses / Procedures Referred By Lilly kraft Referred To Contact Diagnoses Bilateral carotid artery stenosis Procedures US Carotids Duplex Bilateral Jaylon Gudino MD Phone: tel: fax: [address] [address] Referral ID Status Reason Start Date Expiration Date Visits Re quested Visits Authorized [id number] Closed 07/19/2018 01/28/2020 1 1 Encounter Details Date Type Department Care Team (Late st Contact Info) Description 08/23/2018 9:02 AM CDT - 08/23/2018 11:59 PM CDT Hospital Encounter [facility] [address] [place] [address] Jaylon Gudino MD [address] [place] [address] Bilateral carotid artery stenosis Discharge Disposition: Discharge to home or self care Social History Tobacco Use Types Packs/Day Years Used Date Smoking Tobacco: Former Sex and Gender Information Value Date Recorded Sex Assigned at Not on file Legal Sex Male 3:56 AM GAS APPLIANCE INSTALLER Gender Identity Not on file Sexual Orientation Not on file documented as of this encounter Discharge Disposition Disposition Code Departure Means Destination Discharge to home or self care documented in this encounter Plan of Treatment Not on file documented as of this encounter Procedures Procedure Name Priority Date/Time Associated Diagnosis Comments US CAROTIDS DUPLEX BILATERAL Schedule Routine, Read Routine (OP Routine) 08/23/2018 9:38 AM CDT Bilateral carotid artery stenosis documented in this encounter Results * US Carotids Duplex Bilateral (08/23/2018 9:38 AM CDT) Anatomical Region Laterality Modality Vascular Bilateral Ultrasound 08/23/2018 10:1 1 AM CDT Impressions 08/23/2018 10:17 AM CDT 1. MILD (LESS THAN 50%) STENOSIS OF THE RIGHT CAROTID BULB AND PROXIMAL ICA. 2. MILD (LESS THAN 50%) STENOSIS OF THE LEFT COMMON CAROTID ARTERY, CAROTID BULB AND PROXIMAL ICA. 3. ??VERTEBRAL FLOW IS ANTEGRADE BILATERALLY. Electronically signed by: Zion Hall M.D. Narrative 08/23/2018 10:17 AM CDT US CAROTIDS DUPLEX BILATERAL HISTORY: ??Bilateral carotid artery stenosis. ??Left carotid endarterectomy 4-5 years ago. TECHNIQUE: Magallanes scale and color Doppler imaging was performed. COMPARISON: 07/29/2011 FINDINGS: RIGHT: There is focal plaque in the right carotid bulb and right internal carotid artery ??resulting in diameter stenosis of less than 50% based on NASCET criteria. ??There is mild elevation of peak systolic velocity in the mid internal carotid artery at 136 cm/s otherwise the ??peak systolic and peak diastolic velocity measurements are normal in the right common and right internal carotid artery. Vertebral flow is antegrade. LEFT: ??There is focal plaque in the left common carotid artery, carotid bulb and internal carotid artery resulting in diameter stenosis of ??less than 50% based on NASCET criteria. ??There is minimal elevation of peak systolic velocity in the proximal left common carotid artery 129 cm/s otherwise the peak systolic and peak diastolic velocity measurements are normal in the left common and left internal carotid artery. Vertebral flow is antegrade. Procedure Note Zion Hall MD - 08/23/2018 US CAROTIDS DUPLEX BILATERAL HISTORY: Bilateral carotid artery stenosis. Left carotid endarterectomy 4-5 years ago. TECHNIQUE: Magallanes scale and color Doppler imaging was performed. COMPARISON: 07/29/2011 FINDINGS: RIGHT: There is focal plaque in the right carotid bulb and right internal carotid artery resulting in diameter stenosis of less than 50% based on NASCET criteria. There is mild elevation of peak systolic velocity in the mid internal carotid artery at 136 cm/s otherwise the peak systolic and peak diastolic velocity measurements are normal in the right common and right internal carotid artery. Vertebral flow is antegrade. LEFT: There is focal plaque in the left common carotid artery, carotid bulb and internal carotid artery resulting in diameter stenosis of less than 50% based on NASCET criteria. There is minimal elevation of peak systolic velocity in the proximal left common carotid artery 129 cm/s otherwise the peak systolic and peak diastolic velocity measurements are normal in the left common and left internal carotid artery. Vertebral flow is antegrade. IMPRESSION: 1. MILD (LESS THAN 50%) STENOSIS OF THE RIGHT CAROTID BULB AND PROXIMAL ICA. 2. MILD (LESS THAN 50%) STENOSIS OF THE LEFT COMMON CAROTID ARTERY, CAROTID BULB AND PROXIMAL ICA. 3. VERTEBRAL FLOW IS ANTEGRADE BILATERALLY. Electronically signed by: Zion Hall M.D. Jaylon Gudino MD IM US PROCEDURES Final Re sult documented in this encounter Visit Diagnoses Diagnosis Bilateral carotid artery stenosis Occlusion and stenosis of carotid artery without mention of cerebral infarction documented in this encounter Care Teams Grain Wafer Machine Operator Relationship Specialty Start Date End Date Jaylon Gudino MD [address] [place] [address] PCP - General 07/07/16 07/22/22 documented as of this encounter
--- OUTSIDE RECORDS SUMMARY | 2024-03-03 11:45 | XMS_ITS | Encounter Summary ---
Author Organization [facility] Address [address] [place] [address] Phone Care Team Providers Care Videographer Name Role Phone Unknown, Notinfile Primary Care Provider Unavail able Jaylon Gudino MD Unavailable [phone] Reason for Referral * Consultation (Routine) - Closed Specialty Diagnoses / Procedures Referred By Contact Referred To Contact Occupational Therapy Diagnoses Hand injury, left, initial encounter Dy, Ry Man MD [address] [facility] [address] [place] [address] Phone: tel: fax: [facility] Occupational Therapy [address] [facility] 6th [place] [address] [place] [address] Phone: tel: fax: Referral ID Status Reason Start Date Expiration Date V isits Requested Visits Authorized [id number] Closed Evaluate and Treat 07/24/2022 08/23/2023 20 20 Question Answer PTRFR OT Evaluate and Treat Therapy options discussed with patient? Yes Location provided for therapy services is: Patient requested/Patient preferred Please select the performing region: [facility] (All Locations) [[id number]] Please select the performing department: [facility] 6F [[id number]] # of visits: 20 Comments [facility] Occupational Therapy / Physical Therapy (OT/PT) Outpatient Referral ?? Schedule ?? Initial Order ?? Please call patient and schedule on 07/28/22-08/03/22 at either OC with Tequila OR CAM with Morgan (Neuraptive study patient) ?? Diagnosis: 1. Left hand table saw injury [...] 13. Small finger ulnar digital artery laceration Surgery: 1. Left hand exploration 2. Left hand irrigation and debridement 3. Left index finger repair of partial FDP tendon laceration 4. Left index finger repair of complete FDS tendon laceration 5. Left index finger ulnar digital artery repair 6. Left index finger ulnar digital artery repair 7. Use of floor mounted microscope Date of surgery: 07/23/22 ?? Frequency/Duration: 1-2x/week for 4 weeks Next MD Visit: 08/06/22- [facility] ? OT/PT Evaluate and Treat: Complete neuraptive paperwork at first visit in 1st visit window Remove post operative dressing Fabricate orthosis per instructions below Edema management Initiate PROM digit flexion with active extension to orthosis Initiate AROM half fist with active extension to orthosis ? Orthosis Specifications: Forearm based dorsal blocking orthosis with wrist neutral to slight flexion, MPs 70-80, IPs full extended (WHFO without joints) Orthosis Purpose: To support affected structures ?? Restrictions: No use of left upper extremity per tendon healing precautions Encounter Details Date Type Department Care Team (Late st Contact Info) Description 07/24/[address] [facility] Orthopaedic Surgery [address] [facility] 1st [address] [place] [address] Ry York MD [address] [facility] [address] [place] [address] Hand injury, left, initial encounter (Primary Dx) Social History [...] on file Legal Sex Male 3:56 AM COATING AND EMBOSSING UNIT OPERATOR Gender Identity Not on file Sexual Orientation Not on file documented as of this encounter Plan of Treatment Scheduled Referrals Name Type Priority Associated Diagnoses Order Schedule Ambulatory referral order to Occupational Therapy - Outpatient Referral Routine Hand injury, left, initial encounter Expected: 07/29/2022 (Approximate), Expires: 10/24/2022 documented as of this encounter Visit Diagnoses Diagnosis Hand injury, left, initial encounter- Primary documented in this encounter Care Teams Videographer Relationship Specialty Start Date End Date Unknown, Notinfile PCP - General 07/23/22 10/23/22 Jaylon Gudino MD [address] [place] [address] 07/23/22 documented as of this encounter
--- OUTSIDE RECORDS SUMMARY | 2024-03-03 11:45 | XMS_ITS | Encounter Summary ---
Author Organization [facility] Healthcare Address [address] [place] [address] Care Team Providers Care Blood Bank Specialist Name Role Phone Jaylon Gudino MD Primary Care Provider [phone] Reason for Visit * Diagnostic Imaging (Routine) - Closed Specialty Diagnoses / Procedures Referred By Contac t Referred To Contact Diagnoses Finger pain, left Procedures XR Hand Left 3 or More Views Ranjit Barry MD [address] [facility] [phone] [place] [address] Phone: tel: fax: [address] [phone] Referral ID Status Reason Start Date Expiration Date Visits Re quested Visits Authorized [id number] Closed 02/15/2021 03/17/2022 1 1 Encounter Details Date Type Department Care Team (Late st Contact Info) Description 02/15/2021 10:42 AM HEMATOLOGY SUPERVISOR - 02/15/2021 11:59 PM HEMATOLOGY SUPERVISOR Hospital Encounter [facility] [address] [place] [id number] Ranjit Barry MD [address] [facility] [phone] [place] [address] Discharge Disposition: Discharge to home or self care Social History Tobacco Use Types Packs/Day Years Used Date Smoking Tobacco: Former Sex and Gender Information Value Date Recorded Sex Assigned at Not on file Legal Sex Male 3:56 AM HEMATOLOGY SUPERVISOR Gender Identity Not on file Sexual Orientation Not on file documented as of this encounter Medications at Time of Discharge amLODIPine (NORVASC) 5 mg tabletIndications :hypertension Take 1 tablet (5 mg total) by mouth 2 (two) times a day 12/03/2020 pravastatin (PRAVACHOL) 40 mg tabletIndications :hyperlipidemia Take 2 tablets (80 mg total) by mouth nightly 02/15/2021 losartan (COZAAR) 100 mg tablet Take 1 tablet by mouth daily 12/03/2020 10/21/[address] (ACIPHEX) 20 mg EC tablet TAKE 2 TABLETS BY MOUTH ONCE DAILY. TAKE 30-60 MINUTES BEFORE SUPPER. 11/06/2020 10/21/2022 documented as of this encounter Discharge Disposition Disposition Code Departure Means Destination Discharge to home or self care documented in this encounter Plan of Treatment Not on file documented as of this encounter Procedures Procedure Name Priority Date/Time Associated Diagnosis Comments XR HAND LEFT 3 OR MORE VIEWS Schedule Routine, Read Routine (OP Routine) 02/15/2021 10:54 AM HEMATOLOGY SUPERVISOR Finger pain, left documented in this encounter Results * XR Hand Left 3 or More Views (02/15/2021 10:54 AM HEMATOLOGY SUPERVISOR) Anatomical Region Laterality Modality Upper Extremities, Hand Left Computed Radiography 02/15/2021 12:3 7 PM HEMATOLOGY SUPERVISOR Narrative 02/15/2021 12:47 PM HEMATOLOGY SUPERVISOR EXAM DESCRIPTION: ?? XR HAND LEFT 3 [...] PM T: ??02/15/2021 12:47 PM Report ID: [id number] Reading Location: ??[id number] Procedure Note Cleveland Shafer MD - 02/15/2021 [...] by Cleveland Shafer M.D. JR: Report ID: [id number] Reading Location: [id number] Ranjit Barry MD IMG XR PROCEDURES Fi nal Result documented in this encounter Visit Diagnoses Not on filedocumented in this encounter Care Teams Blood Bank Specialist Relationship Specialty Start Date End Date Jaylon Gudino MD [address] [place] [address] PCP - General 07/07/16 07/22/22 documented as of this encounter
--- OUTSIDE RECORDS SUMMARY | 2024-03-03 11:45 | XMS_ITS | Encounter Summary ---
Author Organization [facility] Healthcare Address [address] [place] [address] Care Team Providers Care Half Backer Name Role Phone Unknown, Notinfile Primary Care Provider Unavail able Jaylon Gudino MD Unavailable Reason for Visit * Auth/Cert (Routine) Specialty Diagnoses / Procedures Referred By Contac t Referred To Contact Diagnoses Injury of left hand, initial encounter Nerve injury Procedures N/A Referral ID Status Reason Start Date Expiration Date Visits Re quested Visits Authorized [id number] 1 1 Encounter Details Date Type Department Care Team (Late st Contact Info) Description 07/23/2022 7:12 PM CDT Anesthesia Event [facility] Operating Room [address] [place] [address] Shay Hunter MD [address] [facility] [address] [id number] [place] [address] Dashawn Roche MD [address] [place] [address] Anesthesia Record Procedure Summary Procedure Name Responsible Anesthesiologist Anesthesia Start Time Anesthesia Stop Time REPAIR NERVE (Left: Fingers) Shay Hunter MD 07/23/22191107/23/22 2353 Events Date Time Event Comment 07/23/2022 1847 191 An Start 1913 In Room 1914 An Start Data 1917 An Induction The patient was reevaluated immediately before moderate or deep sedation use and before anesthesia induction. 1918 An Intubation 1918 Anesthesia Ready 1954 Proc Start 1954 Incision Start 2346 Proc Fin 2346 An Extubation 2346 an stop data 2352 Out of Room 235 Handoff to RN I completed my handoff [...] the time of handoff: No value filed. 2358 An Stop Meds Name Total lidocaine (cardiac) syringe 2 % 100 mg propofol 200 mg fentaNYL 200 mcg succinylcholine 60 mg rocuronium 20 mg phenylephrine 100 mcg/mL 300 mcg ondansetron PF (ZOFRAN) 2 mg/mL injectio n 4 mg ceFAZolin 4,000 mg Lactated Ringer's (LR) infusion 2,200 mL * Agents Name O2% N2O O2 N2O Air Sevoflurane Inspired Sevoflurane * Blood No blood administrations on file. Lines, Drains, and Airways Type Details Placement Removal Peripheral IV Placement Date: 07/23/22; Placement Time: 1135; Catheter Size: 18 G; Orientation: Right; Location: Antecubital; Removal Date: 07/24/22; Removal Time: 1507; Removal Reason: Discharge 07/23/22 1135 by Ricki Estevez RN 07/24/22 1507 by Lance Mathew RN Peripheral IV Placement Date: 07/23/22; Placement Time: 1135; Existing LDA Placed by: EMS; Catheter Size: 20 G; Orientation: Right; Location: Wrist; Removal Date: 07/24/22; Removal Time: 1508; Removal Reason: Discharge 07/23/22 1135 by Ricki Estevez RN 07/24/22 1508 by Lance Mathew RN Urethral Catheter Placement Date: 07/23/22; Placement Time: 1924; Inserted by: Chey Godoy RN BSN (Inserted without difficulty); Type: Temperature probe, Straight-tip; Balloon Size: 10 mL; Urine Returned: Yes (clear yellow); Removal Date: 11/04/22; Removal Time: 1614; Removal Reason: Removal date unknown/not present on admission, Not present on admission 07/23/221924 by Chey Godoy RN 11/04/22 1614 by Homa Onofre RN ETT Placement Date: 07/23/22; Placement Time: 1926 (created via procedure documentation); Mask Ventilation: 1; Technique: Video laryngoscopy; Type: ETT - single; Single Lumen Tube Size: 8 mm; Cuffed: Yes; Laryngoscope: Aram; Blade Size: 3; Location: Oral; Grade View: Grade I; Insertion Attempts: 1; Placement Verification: Auscultation, Capnometry; Removal Date: 07/23/22; Removal Time: 234607/23/221926 by Sarah Griffin CRNA 07/23/222346 by Fahad Todd DO RETIRED Surgical Site 07/23/22; 2248; Le ft; Hand; Approximated with sutures, xeroform, 4x4, abd, webril, splint and leydi wrap; 02/02/24 (Retired LDA, Removed/Completed by [employer] with LDA Utility); 1212 (Retired LDA, Removed/Completed by [employer] with LDA Utility) 07/23/222248 by Cristin Bond RN 02/02/24 121 by Discharge Provider, Automatic documented in this encounter Social History Tobacco [...] on file 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 Gender Identity Not on file Sexual Orientation Not on file documented as of this encounter OR Notes * Anesthesia Postprocedure Evaluation - Altaf Fernandes MD - 07/24/2022 12:46 AM CDT Patient: Dewey Pulido Procedure Summary Date: 07/23/22 Room / Location: [facility] OR POD 2 ROOM 205 / [facility] OR POD 2 Anesthesia Start: 1911 Anesthesia Stop: 2358 Procedures: REPAIR NERVE (Left: Fingers) REPAIR TENDON - HAND (Left: Hand) Diagnosis: Injury of left hand, initial encounter (Injury of left hand, initial encounter [S69.92XA]) Surgeons: Vimal Glover MD Responsible Provider: Shay Hunter MD Anesthesia Type: general ASA Status: 2 - Emergent Anesthesia Type: general Last vitals BP 170/61 Pulse 67 Temp 36.7 ??C (98.1 ??F) (Temporal) Resp 13 SpO2 97% Anesthesia Post Evaluation Patient location during evaluation: PACU Patient participation: complete - patient participated Level of consciousness: fully awake Pain management: satisfactory to patient Airway patency: adequate and patent Evidence of recall: no Cardiovascular status: acceptable and hemodynamically stable Respiratory status: acceptable and room air Hydration status: acceptable Pt is: normothermic Nausea/Vomiting status: none No notable events documented. * Anesthesia Procedure Notes - Sarah Griffin CRNA - 07/23/2022 7:27 PM CDT Associated Order(s): Airway Airway Patient location: OR Urgency: elective Indications for airway management: anesthesia Difficult airway: no Emergent airway documentation: Risks and benefits discussed: yes Consent obtained: yes Consent given by: patient Airway prep: Preoxygenated: yes Patient position: sniffing MILS maintained throughout: yes Mask difficulty assessment: 1 - vent by mask Spontaneous ventilation during airway: absent Sedation level during airway: GA Final airway details: Final airway type: endotracheal airway Tube type: ETT ETT size: 8.0 mm Cuffed: yes Technique used for successful ETT placement: video laryngoscopy Insertion site: oral Blade type: Aram Video blade type: Cruz Blade size: 3 Cormack-Lehane (direct): grade I - full view of glottis Cormack-Lehane (video): grade I - full view of glottis Cuff volume: 5 mL Cuff inflated with: air ETT to teeth: 23 cm Placement verified by: auscultation and CO2 detection Airway secured with: silk tape Number of attempts: 1no * Anesthesia Preprocedure Evaluation - Shay Hunter MD - 07/23/2022 4:00 PM CDT Images from the original note were not included. Anesthesia Evaluation Dewey Pulido is a 89 y.o. male Procedure(s): REPAIR NERVE REPAIR TENDON - HAND Pre-Op Diagnosis Codes: * Injury of left hand, initial encounter [S69.92XA] HISTORY HPI 76 YO w/ PMH of HTN, HLD gentleman here for nerve repair of hand. 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 Past Medical History Cardiovascular + Hypertension + Hyperlipidemia Functional Capacity Functional capacity: 6-10 METs Patient Active Problem List Diagnosis ??? Injury of left hand, initial encounter ??? Nerve injury History reviewed. No pertinent past medical history. History reviewed. No pertinent surgical history. Allergies Allergen Reactions ??? Penicillins Hives ??? Sulfa (Sulfonamide Antibiotics) Hives Taking? Last Dose Start Date End Date Provider amLODIPine (NORVASC) 5 mg tablet -- -- -- ProviderGerson MD aspirin 81 mg chewable tablet -- -- -- ProviderGerson MD losartan (COZAAR) 100 mg tablet -- -- -- ProviderGerson MD pravastatin (PRAVACHOL) 40 mg tablet -- -- -- ProviderGerson MD RABEprazole DR (ACIPHEX) 20 mg EC tablet -- -- -- ProviderGerson MD Current Facility-Administered Medications: ??? Lactated Ringer's (LR) infusion, 30 mL/hr, intravenous, Continuous, Last Rate: 30 mL/hr at 07/23/22 1519, 30 mL/hr at 07/23/22 1519 ??? [MAR Hold] morphine injection 4 mg, 4 mg, intravenous, Q1H PRN, 4 mg at 07/23/22 1434 Social History Tobacco Use Smoking Status Former ??? Types: Cigarettes ??? Quit date: 1989 ??? Years since quittin.4 Smokeless Tobacco Not on file Alcohol Use: Not At Risk (07/23/2022) AUDIT-C ??? Frequency of Alcohol Consumption: Never ??? Average Number of Drinks: Not on file ??? Frequency of Binge Drinking: Not on file Substance and Sexual Activity Drug Use Never History reviewed. No pertinent family history. Vitals: 07/23/22 1500 07/23/22 1505 07/23/22 1510 BP: 116/58 127/56 Pulse: 51 54 50 Resp: 9 13 18 Temp: 36 ??C (96.8 ??F) SpO2: 98% 100% PT: 07/23/2022: 10.2 sec INR: 07/23/2022: 0.9 APTT: 07/23/2022: 22 sec (L) Hgb A1C: No results found for requested labs within last 30 days. CBC RBC: 07/23/2022: 3.74 M/cumm (L) RDW: No results found for requested labs within last 30 days. MCHC: 07/23/2022: 33.4 g/dL MCH: 07/23/2022: 30.5 pg MCV: 07/23/2022: 91.2 fL Hct: 07/23/2022: 34.1 % (L) Hgb: 07/23/2022: 11.4 g/dL (L) WBC: 07/23/2022: 10.0 K/cumm (H) MPV: 07/23/2022: 10.4 fL Platelets: 07/23/2022: 225 K/cumm RDW CV: 07/23/2022: 12.8 % RDW Sd: 07/23/2022: 42.6 fL BMP Glucose: 07/23/2022: 155 mg/dL Calcium: 07/23/2022: 10.1 mg/dL Sodium: 07/23/2022: 139 mmol/L Potassium: 07/23/2022: 4.7 mmol/L CO2: 07/23/2022: 25 mmol/L Chloride: 07/23/2022: 104 mmol/L BUN: 07/23/2022: 28 mg/dL (H) Creatinine: 07/23/2022: 1.38 mg/dL (H) STOP-Bang Total Score: 2 DOS Physical Exam Medical history, medications, and allergies reviewed. Attestation: This PAT evaluation 07/23/2022. Airway Exam: Mallampati: II Cervical ROM: FROM TM distance: 3 Cardiovascular Exam: Rate: regular Rhythm: regular Pulmonary Exam: LCTA, bilat EENT Exam: trachea midline Dental Exam: Appears intact Current state: Patient's current state is cooperative. Anesthesia Plan ASA 2- emergent My patient is approved for the Anesthesia Controlled Medication protocol when under care of a TAPER MACHINE Planned anesthesia: General Team communication plan: oral ET tube Induction: Induction: RSI. Postoperative Plan: Postoperative administration opioids intended. Patient's planned disposition post procedure is Floor. Informed Consent: Discussed plan with TAPER MACHINE. Anesthesia plan and risks discussed with patient. Consent and Attending signature: I and/or my [...] Procedure Name Priority Date/Time Associated Diagnosis Comments NC AN PROCEDURE PLACEHOLDER Routine 07/23/2022 7:27 PM CDT NC AN ELECTIVE ENDOTRACHEAL AIRWAY Routine 07/23/2022 7:27 PM CDT documented in this encounter Results * NC AN ELECTIVE ENDOTRACHEAL AIRWAY, NC AN PROCEDURE PLACEHOLDER (07/23/2022 7:27 PM CDT) Narrative Sarah Griffin CRNA - 07/23/2022 7:27 PM CDT Sarah Griffin CRNA ? 07/23/2022 ??7:27 PM Airway Patient location: OR Urgency: elective Indications for airway management: anesthesia Difficult airway: no Emergent airway documentation: Risks and benefits discussed: yes Consent obtained: yes Consent given by: patient Airway prep: Preoxygenated: yes Patient position: sniffing MILS maintained throughout: yes Mask difficulty assessment: 1 - vent by mask Spontaneous ventilation during airway: absent Sedation level during airway: GA Final airway details: Final airway type: endotracheal airway Tube type: ETT ETT size: 8.0 mm Cuffed: yes Technique used for successful ETT placement: video laryngoscopy Insertion site: oral Blade type: Aram Video blade type: Cruz Blade size: 3 Cormack-Lehane (direct): grade I - full view of glottis Cormack-Lehane (video): grade I - full view of glottis Cuff volume: 5 mL Cuff inflated with: air ETT to teeth: 23 cm Placement verified by: auscultation and CO2 detection Airway secured with: silk tape Number of attempts: 1no Shay Hunter MD ANESTHESIA ORDERABLES Final Result documented in this encounter Visit Diagnoses Not on filedocumented in this encounter Administered Medications Inactive Administered Medications - up to 3 most recent administrations Medication Order MAR Action Action Date Dose Rate Site ceFAZolin (ANCEF) injection intravenous, Administer over 3 Minutes, As needed, Starting on Thu07/23/22 at 1930, Anesthesia Intra-op Given 07/23/2022 11:25 PM CDT 2,000 mg Given 07/23/2022 7:30 PM CDT 2,000 mg fentaNYL (SUBLIMAZE) preservative free injection intravenous, As needed, Starting on Thu07/23/22 at 1918, Anesthesia Intra-op Given 07/23/2022 10:36 PM CDT 50 mcg Given 07/23/2022 8:21 PM CDT 50 mcg Given 07/23/2022 7:18 PM CDT 100 mcg Lactated Ringer's (LR) infusion 30 mL/hr, intravenous, Continuous, Starting on Thu07/23/22 at 1545, Pre-Op Restarted 07/23/2022 9:44 PM CDT Rate/Dose Verify 07/23/2022 7:12 PM CDT 150 mL/ hr New Bag 07/23/2022 3:19 PM CDT 30 mL/hr 30 mL/hr lidocaine (cardiac) (XYLOCAINE) preservative free injection intravenous, As needed, Starting on Thu07/23/22 at 1918, Anesthesia Intra-op, Indications: Ventricular ArrhythmiasIndications:Ventricular Arrhythmias Given 07/23/2022 7:18 PM CDT 100 mg ondansetron (ZOFRAN) injection intravenous, Administer over 2 Minutes, As needed, Starting on Thu07/23/22 at 2252, Anesthesia Intra-op Given 07/23/2022 10:52 PM CDT 4 mg phenylephrine (ISMAEL-SYNEPHRINE) 1 mg/10 mL (100 mcg/mL) in sodium chloride 0.9% (premix) intravenous, As needed, Starting on Thu07/23/22 at 2004, Anesthesia Intra-op Given 07/23/2022 11:06 PM CDT 150 mc g Given 07/23/2022 9:40 PM CDT 50 mcg Given 07/23/2022 8:04 PM CDT 100 mcg propofoL (DIPRIVAN) 10 mg/mL IV intravenous, As needed, Starting on Thu07/23/22 at 1917, Anesthesia Intra-op Given 07/23/2022 11:05 PM CDT 50 mg Given 07/23/2022 7:18 PM CDT 150 mg rocuronium (ZEMURON) injection intravenous, As needed, Starting on Thu07/23/22 at 1917, Anesthesia Intra-op Given 07/23/2022 7:18 PM CDT 20 mg succinylcholine (ANECTINE) injection intravenous, As needed, Starting on Thu07/23/22 at 1917, Anesthesia Intra-op Given 07/23/2022 7:18 PM CDT 60 mg documented in this encounter Care Teams Half Backer Relationship Specialty Start Date End Date Unknown, Notinfile PCP - General 07/23/22 10/23/22 Jaylon Gudino MD [address] [place] [address] 07/23/22 documented as of this encounter
--- OUTSIDE RECORDS SUMMARY | 2024-03-03 11:45 | XMS_ITS | Encounter Summary ---
Author Organization [facility] Address [address] [place] [address] Phone Care Team Providers Care Coat Padder Name Role Phone Unknown, Notinfile Primary Care Provider Unavail able Jaylon Gudino MD Unavailable [phone] Reason for Visit * Reason Comments PT Initial Eval * Consultation (Routine) - Closed Specialty Diagnoses / Procedures Referred By Contact Referred To Contact Occupational Therapy Diagnoses Injury of left hand, subsequent encounter Ry York MD [address] [facility] [address] [place] [address] Phone: tel: fax: [facility] (All Locations) Referral ID Status Reason Start Date Expiration Date V isits Requested Visits Authorized [id number] Closed Specialty Services Required 07/30/2022 08/29/2023 24 24 Encounter Details Date Type Department Care Team (Late st Contact Info) Description 08/04/2022 3:00 PM CDT Therapy 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 Left hand exploration 2. Left hand irrigation and excisional debridement 3. Repair of middle finger radial digital nerve with allograft 4. Repair of middle finger ulnar digital nerve with allograft 5. Repair of middle finger ulnar digital artery, primary repair 6. Repair of middle finger flexor digitorum profundus tendon in zone 2 7. Repair of ring finger ulnar digital nerve with allograft 8. Repair of small finger radial digital nerve with allograft 9. Repair of small finger ulnar digital nerve according to Neuraptive randomization 10. Placement of Integra graft for coverage of left index finger soft tissue injury measuring 4 cm x 2 cm 11. Use of floor mounted operating room microscope Date of surgery: 07/23/22 Frequency/Duration: 1-2x/week for 4 weeks Next MD Visit: 08/06/22- [facility] OT/PT Evaluate and Treat: Complete neuraptive paperwork at first visit in 1st visit window Remove post operative dressing Fabricate orthosis per instructions below Edema management Initiate PROM digit flexion with active extension to orthosis Initiate AROM half fist with active extension to orthosis Orthosis Specifications: Forearm based dorsal blocking orthosis with wrist neutral to slight flexion, MPs 70-80, IPs full extended (WHFO without joints) Start time: 1500 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 He doesn't hurt a lot. It slaughter a lot in the IF, more than others. The RF tip hurts but he can't feel the SF/LF. He lives alone and is managing being one handed. He relies on friends for rides to MD visits. No-one told me to elevate it and I've been walking around with it hanging down . Sometimes it bothers him at night with pain. Patient's primary goal: to get back to walking Diagnosis: saw injury L hand Date of onset: Cause of injury: saw injury Date of surgery: 07/23/22 Surgery details: Next MD Appointment: No past medical history on file. Penicillins, Sulfa (sulfonamide antibiotics), Sulfa (sulfonamide antibiotics), Moxifloxacin, Other,and Simvastatin History of prior therapy services: Occupation/Hobbies: contractor Work status: retired Do you feel safe in your home environment?: [x] Yes [] No Hand dominance [x] Right [] Left [] Ambidextrous Involved side [] Right [x] Left [] Bilateral Numbness [x] Yes [] No Location: Tingling [x] Yes [] No Location: through palm and fingers except SF and LF Pain at best: 3 Pain at worst: 4-5 Are you taking pain medication? [x] Yes [] No Medication using: Tylenol and aspirin ADL Status: [] Independent [x] Independent but with increased time or pain [] Requires assistance [] Dependent Details: IADL Status: [] Independent [] Independent but with increased time or pain [] Requires assistance [x] Depedendent Details: no driving Leisure activities: [] Able to participate in leisure activities [x] Unable to participate in leisure activities Details: Sleep: [] Reports adequate sleep to support daily routines [x] Reports inadequate sleep to support daily routines Details: some nocturnal Objective: Wound/appearance: pot op dressings removed with some difficulty due to dryness and adherence to wounds Suture line in palm along DPC of ulnar 3 digits and in volar LF Digits are moderately edematous and limited in composite flexion. His uninvolved hand demonstrates potential OA joint changes with limited end range extension in IP joints Treatment Provided: Fabricated a custom fa wrist hand finger orthosis/dorsal block with MPJ in 70 flexion and IP jointsin available extension. Pt to remove straps for HEP but otherwise not to remove for showers and otherwise to wear until MD visit in 1.5 days 2. Removed dressings and re-dressed wounds with adaptic and sterile gauze 3. Discussed strict flexor tendon /nerve precautions and discussed timeline of recovery 4. Instructed in PROM in orthosis to be done hourly and gentle active flexion to partial fist( thumb length) and extend within the orthosis 5. Instructed in edema management with elevation posuitioning AAT and discussed sleep positioning Assessment: Pt presents at 1 week and 5 days post digital nerve and flexor tendon repair in the non dominant hand. He demonstrates edema and P hypomobility of the L digits. He was able to actively close the digits to the thumb level and extend without issue. His wounds are clean and dry and have no signs of infection. He lives alone but is familiar with one handed care from previous shoulder surgeries. He relies on friends for driving and prefers to attend hand therapy closer to home. We will f/u prn. Pt demonstrated independence/verbalized understanding in: [x] HEP [x] Don/doff orthosis [] All tx listed above Impairment list: [] Coordination [x] Edema [] Endurance/activity tolerance [x] Fine motor use [] Flexibility [x] Gross motor use [] Muscle tone [] Pain [x] Range of motion [] Scar tissue [] Sensation [] Sensory/motor [] Skin integrity [] Strength Other: Functional Limitations: [x] ADLs [] Community activities [] Communication [] Education [x] Home management [] Leisure activities [] Play [] Safety [] Sports [] Work Other: Environmental Barriers: [] Home [] Work [x] Community Barriers to Therapy: unable to drive Intervention Approach: [] Health promotion [x] Remediation [] Wellness [] Adaptation [] Prevention Prognosis: [] Excellent [x] Good [] Fair [] Poor Goals for Physical Therapy Intervention Goal Status / Date Updated Due by: [email or web address] Pt to demo an understanding of use and care of orthosis with accuracy x 1 Met 08/04/22 STG2 Pt to demonstrate HEP with accuracy x 1 Met 08/04/22 STG3 New 08/04/2022 LTG1 Pt to demonstrate the ability to perform all ADL's with L hand as pre injury New 08/04/2022 10/29/22 LTG2 New 08/04/2022 LTG3 New 08/04/2022 Plan: Frequency/Duration: 1x/ MD visits PRN Plan Details: advance flexor tendon program and assess/document sensation. Recommend GMI End time: 1610pm Izzy Jarquin, PT,CHT FOR INSURANCE AUTHORIZATION PURPOSES ONLY: 1. Primary purpose of therapy: Rehabilitation 2. Name tool(s) used during evaluation: NA 3. Will any of the following be used as a primary treatment: None of these apply 4. Body part(s) affected: UE 5. Does the patient have difficulty performing age appropriate activities of daily living (ADLs) and activities related to independent living: Yes 6. Select all conditions expected to impact treatment: NA documented in this encounter Plan of Treatment Not on file documented as of this encounter Visit Diagnoses Diagnosis Injury of left hand, subsequent encounter- Primary documented in this encounter Orders Outpatient Referral Count Last Ordered Date Fir st Ordered Date AMB REFERRAL ORDER TO HAND THERAPY 1 2022 documented in this encounter Care Teams Coat Padder Relationship Specialty Start Date End Date Unknown, Notinfile PCP - General 07/23/22 10/23/22 Jaylon Gudino MD [address] [place] [address] 07/23/22 documented as of this encounter
--- OUTSIDE RECORDS SUMMARY | 2024-03-03 11:45 | XMS_ITS | Encounter Summary ---
Author Organization [facility] Address [address] [facility] [address] [place] [address] Phone Care Team Providers Care Traffic Rate Computer Name Role Phone Jaylon Gudino MD Primary Care Provider [phone] Reason for Visit * Reason Comments Follow-up Encounter Details Date Type Department Care Team (Late st Contact Info) Description 11/01/2021 8:45 AM CDT Office Visit [facility] Surgery [address] [place] [address] [address] [place] [phone] Ranjit Barry MD [address] 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 In brief, 76 y/o RHD M with Trigger finger. Received KL inj to L RF and R LF at last visit L RF doing well R LF - symptoms returned 1 mo ago. Worse than previous Needs to manually reduce Unable to fully straighten L IF and LF starting to grind / trigger IF needs manual reduction some times O: There were no vitals taken for this visit. Gen: NAD, A&O x3 R hand: TTP over A1 mame R LF; +triggering noted; slight flexion contracture noted over PIPJ; caprefill 2-3 sec. 2pd wnl L hand: min TTP over A1 mame IF and LF. +grind, no triggering. Cap refill 2-3 sec. 2pd wnl A/P: 76 y.o. male with TF of R LF and L IF / LF Discussed findings. Has trigger finger of R LF and L IF / LF. Discussed treatment options. Pt continues to work and would like to maintain good movement KL inj R LF, L IF and LF. Discussed that at some point he will need surgery to fully address triggers. All questions answered. Patient verbalizes understanding and agreement with treatment plan. Follow up: prn Restriction: none After informed consent was obtained, the patient's Right long and Left index and long finger MPJ was prepped with alcohol. 0.5 mL Kenalog (40 mg/mL) and 0.5 mL 1% lidocaine were injected into the A1 mame of the right long, left index, and left long finger. Hemostasis was excellent. A Band-Aid wasapplied. Patient tolerated the procedure without issue. I spent 15 minutes on this patient encounter which included review of medical records. Over half the time was spent with the patient face to face discussing the treatment plan, counseling and coordinating care. Ranjit Barry MD 11/01/21 8:46 AM This document was transcribed using voice recognition software without a human admin secretary. Itmay contain typographical, grammatical, and/or syntax errors. documented in this encounter Plan of Treatment Not on file documented as of this encounter Visit Diagnoses Diagnosis Trigger middle finger of right hand- Primary Trigger ring finger of left hand Pain involving joint of finger of left hand documented in this encounter Administered Medications Inactive Administered Medications - up to 3 most recent administrations Medication Order MAR Action Action Date Dose Rate Site lidocaine (XYLOCAINE) 10 mg/mL (1 %) injection 15 mg 15 mg (1.5 mL), infiltration, Once, On Thu11/01/21 at 0945, For 1 dose, Indications: Administration of Local AnesthesiaIndications:Administratio n of Local Anesthesia Given 11/01/2021 9:04 AM CDT 15 mg triamcinolone (KENALOG) 40 mg/mL injection 60 mg 60 mg, other, Once, On Thu11/01/21 at 0945, For 1 doseIndications:Trigger middle finger of right hand,Trigger ring finger of left hand,Pain involving joint of finger of left hand Given 11/01/2021 9:05 AM CDT 60 mg documented in this encounter Historical Medications * This list may reflect changes made after this encounter. valsartan (DIOVAN) 160 mg tabletIndications :hypertension Take 1 tablet (160 mg total) by mouth every morning 09/16/2021 added in this encounter Care Teams Traffic Rate Computer Relationship Specialty Start Date End Date Jaylon Gudino MD [address] [place] [address] PCP - General 07/07/16 07/22/22 documented as of this encounter
--- OUTSIDE RECORDS SUMMARY | 2024-03-03 11:46 | XMS_ITS | Encounter Summary ---
Author Organization [facility] Address [address] [place] [address] Care Team Providers Care Rail Signal Worker Name Role Phone Carlos Gudino MD Primary Care Provider [phone]- [phone] Encounter Details Date Type Department Care Team (Late st Contact Info) Description 07/09/2016 9:04 AM CDT - 07/09/2016 11:59 PM CDT Hospital Encounter [facility] Carlos Gudino MD [address] [place] [address] Discharge Disposition: Discharge to home or self care Social History Tobacco Use Types Packs/Day Years Used Date Smoking Tobacco: Former Sex and Gender Information Value Date Recorded Sex Assigned at Not on file 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 Gender Identity Not on file Sexual Orientation Not on file documented as of this encounter Discharge Disposition Disposition Code Departure Means Destination Discharge to home or self care documented in this encounter Plan of Treatment Not on file documented as of this encounter Procedures Procedure Name Priority Date/Time Associated Diagnosis Comments TRANSESOPHAGEAL ECHO (SUMAN) W DOPPLER/CF WO CONTRAST Routine 07/09/2016 3:20 PM CDT documented in this encounter Results * Transesophageal Echocardiogram (SUMAN) Complete (07/09/2016 3:20 PM CDT) Anatomical Region Laterality Modality Ultrasound 07/09/2016 3:20 PM CDT Narrative 07/09/2016 3:20 PM CDT ECHO CMPLT W DOPP WO CONT ??Acc#: ??[id number] DATE OF EXAM: ??Jul 09 2016 ?? CLINICAL HISTORY: ? RESULT: Transthoracic 2D, M-mode, color and Doppler flow study was performed in the standard parasternal and apical windows. IMPRESSION: ? 1. NORMAL LEFT VENTRICULAR SYSTOLIC FUNCTION. ??ESTIMATED EJECTION FRACTION 65-70%. 2. NORMAL AORTIC AND MITRAL VALVE VELOCITIES. 3. MILD TRICUSPID REGURGITATION WITH CALCULATED RIGHT VENTRICULAR SYSTOLIC PRESSURE OF 25 MMHG. Interpreting Physician: ??DR MARCIAL MILLER M.D. ??Read on: ??Jul 09 2016 ??6:50P Transcribed by: ??vamike ??On: Jul 09 2016 ??6:50P Approved Electronically by: ??PAUL Almendarez, DR CEJA ??on: ??Jul 11 2016 ??1:20P Ordering DR: DR CARLOS GUDINO Attending DR: DR CARLOS GUDINO Attending: ??DR CARLOS GUDINO Requesting: ??DR CARLOS GUDINO Requesting Fax: ??[phone] Attending Fax: ??[phone] Attending ID: ??[id number] Requesting ID: ??[id number] Report To 1 ID: ??[id number] Report To 1 Name: ??DR CARLOS GUDINO Report To 1 FAX: ??[phone] NextGen Order #: ?? Procedure Note Miscellaneous, Not In File / Provider, MD Gerson - 07/26/2016 ECHO CMPLT W DOPP WO CONT Acc#: [id number] DATE OF EXAM: Jul 09 2016 CLINICAL HISTORY: RESULT: Transthoracic 2D, M-mode, color and Doppler flow study was performed in the standard parasternal and apical windows. IMPRESSION: 1. NORMAL LEFT VENTRICULAR SYSTOLIC FUNCTION. ESTIMATED EJECTION FRACTION 65-70%. 2. NORMAL AORTIC AND MITRAL VALVE VELOCITIES. 3. MILD TRICUSPID REGURGITATION WITH CALCULATED RIGHT VENTRICULAR SYSTOLIC PRESSURE OF 25 MMHG. Interpreting Physician: DR MARCIAL MILLER M.D. Read on: Jul 09 20166:50P Transcribed by: godfrey On: Jul 09 2016 6:50P Approved Electronically by: DR MARCIAL MILLER M.D. on: Jul 11 20161:20P Ordering DR: DR CARLOS GUDINO Attending DR: DR CARLOS GUDINO Attending: DR CARLOS GUDINO Requesting: DR CARLOS GUDINO Requesting Attending Attending ID: [id number] Requesting ID: [id number] Report To 1 ID: [id number] Report To 1 Name: DR CARLOS GUDINO Report To 1 FAX: [phone] NextGen Order #: us Not In File Miscellaneous CV ECHO PROCEDURES Fin al Result documented in this encounter Visit Diagnoses Not on filedocumented in this encounter Care Teams Rail Signal Worker Relationship Specialty Start Date End Date Carlos Gudino MD [address] [place] [address] PCP - General 07/07/16 07/22/22 documented as of this encounter
--- OUTSIDE RECORDS SUMMARY | 2024-03-03 11:46 | XMS_ITS | Encounter Summary ---
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 60 - 89 mL/min/1.73m2 Mildly to moderately decreased ?45 - 59 mL/min/1.73m2 Moderately to severely decreased ??30 - 44 mL/min/1.73m2 Severely decreased ?15 - 29 mL/min/1.73m2 Kidney Failure ?< 15 ??mL/min/1.73m2 *Relative to young adult level If -Malian multiply value by 1.16. Estimated glomerular filtration [...] was last reviewed 2015. Blood specimen (specimen) 07/07/2016 7:42 AM CDT 07/07/2016 8:45 AM CDT us Jaylon Gudino MD LAB BLOOD ORDERABLES Final Result Performing Organization Address City/State/[facility] Co de Phone Number [facility] [place]) [facility] Department [place] [address] documented in this encounter Visit Diagnoses Not on filedocumented in this encounter Care Teams Cage Fighter Relationship Specialty Start Date End Date Jaylon Gudino MD [address] [place] [address] PCP - General 07/07/16 07/22/22 documented as of this encounter
--- OUTSIDE RECORDS SUMMARY | 2024-03-03 11:46 | XMS_ITS | Encounter Summary ---
Author Organization [facility] Healthcare Address [address] [place] [address] Care Team Providers Care Back Maker Name Role Phone Unavailable Primary Care Provider Unavailabl e Encounter Details Date Type Department Care Team (Late st Contact Info) Description 11/24/2012 8:40 AM CDT - 11/24/2012 11:59 PM CDT Hospital Encounter [facility] Carlos Narayan MD [address] [place] [address] Special screening for malignant neoplasm of prostate; Essential hypertension; Other and unspecified hyperlipidemia Social History Tobacco Use Types Packs/Day Years Used Date Smoking Tobacco: Never Assessed Sex and Gender Information Value Date Recorded Sex Assigned at Not on file 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 Gender Identity Not on file Sexual Orientation Not on file documented as of this encounter Plan of Treatment Not on file documented as of this encounter Procedures Procedure Name Priority Date/Time Associated Diagnosis Comments SERUM PROSTATE-SPECIFIC ANTIGEN (PSA) Routine 11/24/2012 8:58 AM CDT SERUM LIPID PANEL Routine 11/24/2012 8:5 8 AM CDT SERUM COMPREHENSIVE METABOLIC PANEL Routine 11/24/2012 8:58 AM CDT DISCHARGE LABORATORY CUMULATIVE REPORT Routine 11/24/2012 12:00 AM CDT documented in this encounter Results * Serum prostate-specific antigen (PSA) (11/24/2012 8:58 AM CDT) PSA 1.0 0.0 - 4.0 ng/ml HISTORICAL RESULTS Serum 11/24/2012 8:58 AM CDT us Carlos Gudino MD LAB BLOOD ORDERABLES Final Result Performing Organization Address [facility] de Phone Number HISTORICAL RESULTS * Serum lipid panel (11/24/2012 8:58 AM CDT) Cholesterol 159 mg/dl HISTORIC AL RESULTS Comment: DESIRABLE = LESS THAN 200 MG/DL BORDERLINE HIGH = 200-239 MG/DL HIGH= GREATER THAN 239 MG/DL Triglycerides 101 mg/dl HISTOR ICAL RESULTS Comment: Current guidelines recommend that lipid screen be performed on fasting blood samples for heart risk stratification. NORMAL = LESS THAN 150 MG/DL BORDERLINE HIGH = 150-199 MG/DL HIGH = 200-499 MG/DL VERY HIGH = GREATER THAN OR EQUAL TO 500 MG/DL HDL 58 mg/dl HISTORICAL RESULTS Comment: LOW HDL CHOLESTEROL = Less than 40 mg/dL NORMAL HDL CHOLESTEROL = 40-59 mg/dL HIGH HDL CHOLESTEROL = Greater than 59 mg/dL Non-HDL cholesterol, calculated 101 mg/dl HISTORICAL RESULTS Comment: OPTIMAL LESS THAN 130 LOW RISK 130 -159 MODERATE RISK 160 - 189 HIGH RISK GREATER THAN OR EQUAL TO 190 LDL, calculated 81 HIST ORICAL RESULTS Comment: LESS THAN 100 MG/DL OPTIMAL 100 - 129 MG/DL NEAR OPTIMAL / ABOVE OPTIMAL 130 - 159 MG/DL BORDERLINE HIGH 160 - 189 MG/DL HIGH GREATER THAN OR = 190 MG/DL VERY HIGH LDL VALUES ARE NOT VALID WHEN THE TOTAL TRIGLYCERIDE IS GREATER THAN 300 MG/DL. Serum 11/24/2012 8:58 AM CDT us Carlos Gudino MD LAB BLOOD ORDERABLES Final Result Performing Organization Address [facility] de Phone Number HISTORICAL RESULTS * (ABNORMAL) Serum comprehensive metabolic panel (11/24/2012 8:58 AM CDT) Creatinine 1.30 0.60 - 1.30 mg/dl HISTORICAL RESULTS BUN 28.0(H) 6.0 - 23.0 mg/dl HISTORICAL RESULTS BUN/creat ratio 22(H) 10 - 20 HIST ORICAL RESULTS Sodium 136 134 - 143 mmol/L HISTORICAL RESULTS A. gap 12 7 - 14 mmol/L HISTORICAL RESULTS Potassium, sr 4.1 3.4 - 5.0 mmol/L HISTORICAL RESULTS Protein, sr 7.1 6.4 - 8.0 g/dl HISTORICAL RESULTS Chloride 103 99 - 108 mmol/L HISTORICAL RESULTS Alb 4.0 3.3 - 4.5 g/dl HISTORICAL RESULTS CO2 25 23 - 32 mmol/L HISTORICAL RESULTS Alb/glob ratio 1.3 1.1 - 1.8 HISTO RICAL RESULTS Glucose, fasting 104 70 - 110 mg/dl HISTORICAL RESULTS Calcium 8.9 8.6 - 9.8 mg/dl HISTORICAL RESULTS Bilirubin 0.4 0.0 - 1.1 mg/dl HISTORICAL RESULTS Alk phos 69 44 - 125 Units/L HISTORICAL RESULTS AST 39 10 - 45 Units/L HISTORICAL RESULTS Comment:AST - NOTE REFERENCE RANGE CHANGE ALT 44 15 - 70 Units/L HISTORICAL RESULTS Serum 11/24/2012 8:58 AM CDT us Carlos Gudino MD LAB BLOOD ORDERABLES Final Result HISTORICAL RESULTS * Discharge Laboratory Cumulative Report (11/24/2012 12:00 AM CDT) 11/24/2012 Narrative HISTORICAL RESULTS - 11/26/2012 12:27 AM CDT Patient No: [id number] ? [facility] Patient Name: ANIYAH RAMIREZ ?[facility] Age: 67 YRS ?: 1945 ?Sex:M ?[address] )[id number] ?? Adm Dt: 11/24/2012 ?[place], [place] ??[id number] Created: 11/26/2012 ??0027 ?? Pt. Type: R ? Discharge Dt: 11/24/2012 ? Pathologists: Camila Worley MD Admit Attend Dr: CARLOS GUDINO ??K MD ? GENERAL CHEMISTRY ?Collection Date: ?11/24/12 ?Collection Time: ?0858 ? Ref Range: ?? Units: [134-143] ?? MMOL/L ? SODIUM ? 136 [3.4-5.0] ?? MMOL/L ? POTASSIUM ?4.1 [99.0-108.0] MMOL/L ? CHLORIDE ? 103.0 [23.0-32.0] ??MMOL/L ? TOTAL CO2 ? 25.4 ?? [7-14] ?MMOL/L ? ANION GAP ? 12 ??[70-110] ?? MG/DL ?GLUCOSE FASTING ?104 [6.4-8.0] ?? G/DL ? TOTAL PROTEIN ?7.1 [3.3-4.5] ?? G/DL ? ALBUMIN ?4.0 [1.1-1.8] ?A/G RATIO ?1.3 [8.6-9.8] ?? MG/DL ?CALCIUM ?8.9 [0.0-1.1] ?? MG/DL ?BILI TOTAL ? 0.4 ??[44-125] ?? U/L ?ALK PHOS ?69 ??[10-45] ?U/L ?AST(SGOT) ? 39 f ??[15-70] ?U/L ?ALT(SGPT) ? 44 f [6.0-23.0] ??MG/DL ?BUN ? 28.0 H ??[10-20] ? B/C RATIO ? 22 H [0.60-1.30] ??MG/DL ?CREATININE ?30 Footnotes and Symbols: H = High, f = Footnote AST(SGOT) (08/11/12 -- Current) AST ??- NOTE REFERENCE RANGE CHANGE ALT(SGPT) (09/21/12 -- Current) ?? CONTINUED ?Page: ?? 1 Patient No: [id number] ? [facility] Patient Name: ANIYAH RAMIREZ ?[facility] Age: 67 YRS ?: 1945 ?Sex:M ?[address] )[id number] ?? Adm Dt: 11/24/2012 ?[place] ??[id number] Created: 11/26/2012 ??0027 ?? Pt. Type: R ? Discharge Dt: 11/24/2012 ? Pathologists: Camila Worley MD Admit Attend Dr: CARLOS GUDINO ??K MD ?LIPIDS ?Collection Date: ?11/24/12 ?Collection Time: ?0858 ? Ref Range: ?? Units: ? MG/DL ?CHOLESTEROL ?159 f ? MG/DL ?HDL CHOLESTEROL ? 58 f ? MG/DL ?TRIGLYCERIDES ?101 f ?11/24/12 0858 Current guidelines recommend that lipid screen be ??performed on fasting blood samples for heart risk stratification. FOOTNOTE ADDED ON ?? 11/24/12 ?? AT 1041 BY 999 ? MG/DL ?NON HDL CALC ? 101 f Footnotes and Symbols: f = Footnote CHOLESTEROL (03/14/10 -- Current) DESIRABLE = LESS THAN 200 MG/DL BORDERLINE HIGH = 200-239 MG/DL HIGH= GREATER THAN 239 MG/DL HDL CHOLESTEROL (03/14/10 -- Current) LOW HDL CHOLESTEROL = Less than 40 mg/dL NORMAL HDL CHOLESTEROL = 40-59 mg/dL HIGH HDL CHOLESTEROL = Greater than 59 mg/dL TRIGLYCERIDES (06/16/12 -- Current) NORMAL = LESS THAN 150 MG/DL BORDERLINE HIGH = 150-199 MG/DL HIGH = 200-499 MG/DL VERY HIGH = GREATER THAN OR EQUAL TO 500 MG/DL NON HDL CALC (06/07/12 -- Current) OPTIMAL LESS THAN 130 LOW RISK 130 -159 MODERATE RISK 160 - 189 HIGH RISK GREATER THAN OR EQUAL TO 190 ?? CONTINUED ?Page: ?? 2 Patient No: [id number] ? [facility] Patient Name: ANIYAH RAMIREZ ?[facility] Age: 67 YRS ?: 1945 ?Sex:M ?[address] )[phone] ?? Adm Dt: 11/24/2012 ?[place] ??[id number] Created: 11/26/2012 ??0027 ?? Pt. Type: R ? Discharge Dt: 11/24/2012 ? Pathologists: Camila Worley MD Admit Attend Dr: CARLOS GUDINO ??K ?LIPIDS ?Collection Date: ?09/25/13 ?Collection Time: ?0858 ? Ref Range: ?? Units: ?LDL CHOL CALC ? 81 f ? TUMOR MARKERS ?Collection Date: ?09/25/13 ?Collection Time: ?0858 ? Ref Range: ?? Units: [0.0-4.0] ?? NG/ML ?PSA ?1.0 Footnotes and Symbols: f = Footnote LDL CHOL CALC (06/17/12 -- Current) LESS THAN 100 MG/DL OPTIMAL 100 - 129 MG/DL NEAR OPTIMAL / ABOVE OPTIMAL 130 - 159 MG/DL BORDERLINE HIGH 160 - 189 MG/DL HIGH GREATER THAN OR = 190 MG/DL VERY HIGH LDL VALUES ARE NOT VALID WHEN THE TOTAL TRIGLYCERIDE IS GREATER THAN 300 MG/DL. ?? END OF CHART ? Page: ?? 3 us Historical Provider LAB BLOOD ORDERABLES Isela l Result HISTORICAL RESULTS documented in this encounter Visit Diagnoses Diagnosis Special screening for malignant neoplasm of prostate Essential hypertension Unspecified essential hypertension Other and unspecified hyperlipidemia documented in this encounter
--- OUTSIDE RECORDS SUMMARY | 2024-03-03 11:46 | XMS_ITS | Encounter Summary ---
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 Gender Identity Not on file Sexual Orientation Not on file documented as of this encounter Plan of Treatment Not on file documented as of this encounter Procedures Procedure Name Priority Date/Time Associated Diagnosis Comments PSA SCREEN New Adm-Reg 07/07/2016 7:42 AM CDT documented in this encounter Results * PSA screen (07/07/2016 7:42 AM CDT) PSA-Total 0.66 0.10 - 4.00 ng/mL [facility] ([place]) Blood specimen (specimen) 07/07/2016 7:42 AM CDT 07/07/2016 11:51 AM CDT us Jaylon Gudino MD LAB BLOOD ORDERABLES Final Result [facility] ([place]) 1 [facility] [place] [address] documented in this encounter Visit Diagnoses Not on filedocumented in this encounter Care Teams Franchise Field Consultant Relationship Specialty Start Date End Date Jaylon Gudino MD [address] [place] [address] PCP - General 07/07/16 07/22/22 documented as of this encounter
--- OUTSIDE RECORDS SUMMARY | 2024-03-03 11:46 | XMS_ITS | Encounter Summary ---
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 Gender Identity Not on file Sexual Orientation Not on file documented as of this encounter Plan of Treatment Not on file documented as of this encounter Procedures Procedure Name Priority Date/Time Associated Diagnosis Comments COMPREHENSIVE METABOLIC PANEL New Adm-Reg 07/07/2016 7:42 AM CDT documented in this encounter Results * (ABNORMAL) Comprehensive metabolic panel (07/07/2016 7:42 AM CDT) Sodium 139 135 - 145 mmol/L [facility] ([place]) Potassium 4.1 3.5 - 5.1 mmol/L [facility] ([place]) Chloride 101 97 - 110 mmol/L [facility] ([place]) CO2 26 22 - 32 mmol/L [facility] ([place]) Anion gap 12 8 - 16 mmol/L [facility] ([place]) Glucose 125 70 - 199 mg/dL [facility] ([place]) Comment: Interpretive Data Note:The glucose is assumed non fasting Fastin-99 mg/dL Random: ??70-199 mg/dL Either a fasting glucose > 126 mg/dL or a random glucose > 200 mg/dL plus symptoms is diagnostic of diabetes when confirmed on another day. Fasting values > 100 mg/dL but < 125 mg/dL are diagnostic of impaired fasting glucose. Current interpretive data was last revised on 2014. BUN 25.4(H) 8.0 - 25.0 mg/dL [facility] ([place]) Creatinine 1.15 0.70 - 1.30 mg/dL [facility] ([place]) BUN/creat ratio 22(H) 10 - 20 [facility] ([place]) Calcium 9.8 8.6 - 10.2 mg/dL [facility] ([place]) Protein, sr 7.2 6.0 - 8.4 g/dL [facility] ([place]) Albumin 4.5 3.6 - 5.0 g/dL [facility] ([place]) Alk phos 72 40 - 130 Units/L [facility] ([place]) ALT 34 5 - 50 Units/L [facility] ([place]) AST 38 10 - 45 Units/L [facility] ([place]) Bilirubin, total 0.4 <=1.2 mg/dL [facility] ([place]) Blood specimen (specimen) 07/07/2016 7:42 AM CDT 07/07/2016 8:45 AM CDT us Jaylon Gudino MD LAB BLOOD ORDERABLES Final Result [facility] ([place]) 1 [facility] Department [place] [address] documented in this encounter Visit Diagnoses Not on filedocumented in this encounter Care Teams Care Navigator Relationship Specialty Start Date End Date Jaylon Gudino MD [address] [place] [address] PCP - General 07/07/16 07/22/22 documented as of this encounter
--- OUTSIDE RECORDS SUMMARY | 2024-03-03 11:46 | XMS_ITS | Encounter Summary ---
Author Organization [facility] Healthcare Address [address] [place] [address] Care Team Providers Care Business Unit Controller Name Role Phone Jaylon Gudino MD Primary Care Provider +1- [phone] Encounter Details Date Type Department Care Team (Latest Contact Info) Description 09/30/2016 8:20 AM CDT - 11/20/2016 11:59 PM CDT Hospital Encounter [facility] OP INTERIM Alan Wynne MD [address] [facility] [address] [place] [address] Discharge Disposition: Discharge to home or self care Social History Tobacco Use Types Packs/Day Years Used Date Smoking Tobacco: Former Sex and Gender Information Value Date Recorded Sex Assigned at Not on file 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
--- OUTSIDE RECORDS SUMMARY | 2024-03-03 11:46 | XMS_ITS | Encounter Summary ---
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 Borderline High: ?200 - 239 mg/dl ? High: ??Greater than ?? 239 mg/dl Current interpretive data was last revised on 2014. Triglycerides 277.0(H) <=150.0 mg/dL [facility] ([place]) Comment: Interpretive Data Normal: ? Less than 150 mg/dl Borderline high: ??105-199 mg/dl ?? High: ? 200-499 mg/dl ? Very high: ??Greater than or equal to 500 mg/dl Current interpretive data was last revised on 2014. HDL 59 40 - 60 mg/dL [facility] ([place]) Comment: Interpretive Data Low HDL Cholesterol: ? Less than 40 mg/dl Normal HDL Cholesterol: ??40-60 mg/dl High HDL Cholesterol: ?Greater than 60 mg/dl Current interpretive data was last revised on 2014. LDL, calculated 99 mg/dL [facility] ([place]) Comment: Interpretive Data Optimal ? [...] was last revised on 2014. Non-HDL Cholesterol 154 mg/dL [facility] ([place]) Comment: Interpretive Data Optimal ? Less than 130 mg/dL Low Risk ?130 - 159 mg/dL Moderate Risk ? 160 - 189 mg/dL High Risk ? Greater than or equal to 190 mg/dL Current interpretive data was last revised on 2014. Blood specimen (specimen) 07/07/2016 7:42 AM CDT 07/07/2016 8:45 AM CDT us Jaylon Gudino MD LAB BLOOD ORDERABLES Final Result [facility] ([place]) [facility] Department [place] [address] documented in this encounter Visit Diagnoses Not on filedocumented in this encounter Care Teams Shingles Roofer Relationship Specialty Start Date End Date Jaylon Gudino MD [address] [place] [address] PCP - General 07/07/16 07/22/22 documented as of this encounter
--- OUTSIDE RECORDS SUMMARY | 2024-03-03 11:46 | XMS_ITS | Encounter Summary ---
Author Organization [facility] Healthcare Address [address] [place] [address] Care Team Providers Care Zipper Slide Attacher Name Role Phone Jaylon Gudino MD Primary Care Provider +1- [phone] Encounter Details Date Type Department Care Team (Late st Contact Info) Description 07/07/2016 7:33 AM CDT - 07/07/2016 11:59 PM CDT Hospital Encounter [facility] INTERIM Jaylon Gudino MD [address] [place] [address] Discharge Disposition: Discharge to home or self care Social History Tobacco Use Types Packs/Day Years Used Date Smoking Tobacco: Former Sex and Gender Information Value Date Recorded Sex Assigned at Not on file 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
--- OUTSIDE RECORDS SUMMARY | 2024-03-03 11:46 | XMS_ITS | Encounter Summary ---
Author Organization [facility] Healthcare Address [address] [place] [address] Care Team Providers Care Human Resources Team Member Name Role Phone Jaylon Gudino MD Primary Care Provider +1- [phone] Encounter Details Date Type Department Care Team (Late st Contact Info) Description 08/11/2016 7:09 AM CDT - 08/11/2016 11:59 PM CDT Hospital Encounter [facility] OP INTERIM Jaylon Gudino MD [address] [place] [address] Discharge Disposition: Discharge to home or self care Social History Tobacco Use Types Packs/Day Years Used Date Smoking Tobacco: Former Sex and Gender Information Value Date Recorded Sex Assigned at Not on file 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 Gender Identity Not on file Sexual Orientation Not on file documented as of this encounter Discharge Disposition Disposition Code Departure Means Destination Discharge to home or self care documented in this encounter Plan of Treatment Not on file documented as of this encounter Procedures Procedure Name Priority Date/Time Associated Diagnosis Comments DISCHARGE LABORATORY CUMULATIVE REPORT 08/12/2016 12:00 AM CDT EGFR New Adm-Reg 08/11/2016 7:21 AM CDT BASIC METABOLIC PANEL New Adm-Reg 08/11/2016 7:21 AM CDT DISCHARGE LABORATORY CUMULATIVE REPORT 08/11/2016 documented in this encounter Results * DISCHARGE LABORATORY CUMULATIVE REPORT (08/12/2016 12:00 AM CDT) Narrative 08/12/2016 12:00 AM CDT Ordered by an unspecified provider. us Historical Provider LAB BLOOD ORDERABLES Isela l Result * eGFR (08/11/2016 7:21 AM CDT) eGFR >60 mL/min/1.7 3 m2 [facility] ([place]) Comment: Interpretive Data Reference Interval Normal ?>/= 90 mL/min/1.73m2 Mildly decreased* ? 60 - 89 mL/min/1.73m2 Mildly to moderately decreased ?45 - 59 mL/min/1.73m2 Moderately to severely decreased ??30 - 44 mL/min/1.73m2 Severely decreased ?15 - 29 mL/min/1.73m2 Kidney Failure ?< 15 ??mL/min/1.73m2 *Relative to young adult level If -[place]og[place] multiply value by 1.16. Estimated glomerular filtration [...] was last reviewed 2015. Blood specimen (specimen) 08/11/2016 7:21 AM CDT 08/11/2016 7:38 AM CDT Jaylon Gudino MD LAB BLOOD ORDERABLES Final Result [facility] ([place]) [facility] Department [place] [address] * Basic metabolic panel (08/11/2016 7:21 AM CDT) Sodium 140 135 - 145 mmol/L [facility] ([place]) Potassium 4.0 3.5 - 5.1 mmol/L [facility] ([place]) Chloride 105 97 - 110 mmol/L [facility]) CO2 24 22 - 32 mmol/L [facility] ([place]) Anion gap 11 8 - 16 mmol/L [facility] ([place]) Glucose 118 70 - 199 mg/dL [facility] ([place]) Comment: Interpretive Data Note:The glucose is [...] data was last revised on 2014. BUN 21.3 8.0 - 25.0 mg/dL [facility] ([place]) Creatinine 1.10 0.70 - 1.30 mg/dL [facility] ([place]) Calcium 9.1 8.6 - 10.2 mg/dL [facility] ([place]) BUN/creat ratio 19 10 - 20 [facility] ([place]) Blood specimen (specimen) 08/11/2016 7:21 AM CDT 08/11/2016 7:38 AM CDT us Jaylon Gudino MD LAB BLOOD ORDERABLES Final Result [facility] ([place] Department [place] [address] * DISCHARGE LABORATORY CUMULATIVE REPORT (08/11/2016) us Provider Scanning LAB BLOOD ORDERABLES Final Res ult documented in this encounter Visit Diagnoses Not on filedocumented in this encounter Care Teams Human Resources Team Member Relationship Specialty Start Date End Date Jaylon Gudino MD [address] [place] [address] PCP - General 07/07/16 07/22/22 documented as of this encounter
--- OUTSIDE RECORDS SUMMARY | 2024-03-03 11:46 | XMS_ITS | Encounter Summary ---
Author Organization [facility] Healthcare Address [address] [place] [address] Care Team Providers Care Palletizer Name Role Phone Unavailable Primary Care Provider Unavailabl e Encounter Details Date Type Department Care Team (Late st Contact Info) Description 08/31/2013 7:21 AM CDT - 08/31/2013 11:59 PM CDT Hospital Encounter [facility] Carlos Gudino MD [address] [place] [address] Benign essential hypertension; Other and unspecified hyperlipidemia Social History Tobacco Use Types Packs/Day Years Used Date Smoking Tobacco: Former Sex and Gender Information Value Date Recorded Sex Assigned at Not on file 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 Gender Identity Not on file Sexual Orientation Not on file documented as of this encounter Plan of Treatment Not on file documented as of this encounter Procedures Procedure Name Priority Date/Time Associated Diagnosis Comments SERUM LIPID PANEL Routine 08/31/2013 7:2 8 AM CDT SERUM COMPREHENSIVE METABOLIC PANEL Routine 08/31/2013 7:28 AM CDT DISCHARGE LABORATORY CUMULATIVE REPORT Routine 08/31/2013 12:00 AM CDT documented in this encounter Results * Serum lipid panel (08/31/2013 7:28 AM CDT) Cholesterol 147 mg/dl HISTORIC AL RESULTS Comment: DESIRABLE = LESS THAN 200 MG/DL BORDERLINE HIGH = 200-239 MG/DL HIGH= GREATER THAN 239 MG/DL Triglycerides 92 mg/dl HISTOR ICAL RESULTS Comment: Current guidelines recommend that lipid screen be performed on fasting blood samples for heart risk stratification. NORMAL = LESS THAN 150 MG/DL BORDERLINE HIGH = 150-199 MG/DL HIGH = 200-499 MG/DL VERY HIGH = GREATER THAN OR EQUAL TO 500 MG/DL HDL 67 mg/dl HISTORICAL RESULTS Comment: LOW HDL CHOLESTEROL = Less than 40 mg/dL NORMAL HDL CHOLESTEROL = 40-59 mg/dL HIGH HDL CHOLESTEROL = Greater than 59 mg/dL Non-HDL cholesterol, calculated 80 mg/dl HISTORICAL RESULTS Comment: OPTIMAL LESS THAN 130 LOW RISK 130 -159 MODERATE RISK 160 - 189 HIGH RISK GREATER THAN OR EQUAL TO 190 LDL, calculated 62 HIST ORICAL RESULTS Comment: LESS THAN 100 MG/DL OPTIMAL 100 - 129 MG/DL NEAR OPTIMAL / ABOVE OPTIMAL 130 - 159 MG/DL BORDERLINE HIGH 160 - 189 MG/DL HIGH GREATER THAN OR = 190 MG/DL VERY HIGH LDL VALUES ARE NOT VALID WHEN THE TOTAL TRIGLYCERIDE IS GREATER THAN 300 MG/DL. Serum 08/31/2013 7:28 AM CDT Carlos Gudino MD LAB BLOOD ORDERABLES Final Result HISTORICAL RESULTS * (ABNORMAL) Serum comprehensive metabolic panel (08/31/2013 7:28 AM CDT) Pathologist [facility] BUN 15.0 6.0 - 23.0 mg/dl HISTORICAL RESULTS Sodium 142 134 - 143 mmol/L HISTORICAL RESULTS Potassium, sr 4.2 3.4 - 5.0 mmol/L HISTORICAL RESULTS Chloride 106 99 - 108 mmol/L HISTORICAL RESULTS CO2 29 23 - 32 mmol/L HISTORICAL RESULTS Glucose 122 70 - 199 mg/dl HISTORICAL RESULTS Comment: Note:The glucose is assumed non fasting Fastin-99 mg/dl Random: 70-199 mg/dl Either a fasting glucose > 126 mg/dL or a random glucose > 200 mg/dL plus symptoms is diagnostic of diabetes when confirmed on another day. Fasting values > 100 mg/dl but < 125 mg/dL are diagnostic of impaired fasting glucose. New reference ranges implemented 01/10/2013. Creatinine 1.36(H) 0.60 - 1.30 mg/dl HISTORICAL RESULTS BUN/creat ratio 11 10 - 20 HIST ORICAL RESULTS A. gap 11 7 - 14 mmol/L HISTORICAL RESULTS Protein, sr 7.3 6.4 - 8.0 g/dl HISTORICAL RESULTS Alb 3.9 3.3 - 4.5 g/dl HISTORICAL RESULTS Alb/glob ratio 1.1 1.1 - 1.8 HISTO RICAL RESULTS Calcium 8.8 8.6 - 9.8 mg/dl HISTORICAL RESULTS Bilirubin 0.4 0.0 - 1.1 mg/dl HISTORICAL RESULTS Alk phos 91 44 - 125 Units/L HISTORICAL RESULTS AST 35 10 - 45 Units/L HISTORICAL RESULTS ALT 38 15 - 70 Units/L HISTORICAL RESULTS Serum 08/31/2013 7:28 AM CDT us Carlos Gudino MD LAB BLOOD ORDERABLES Final Result HISTORICAL RESULTS * Discharge Laboratory Cumulative Report (08/31/2013 12:00 AM CDT) 08/31/2013 Narrative HISTORICAL RESULTS - 09/02/2013 12:36 AM CDT Patient No: [id number] ? [facility] Patient Name: ANIYAH RAMIREZ ?[facility] Healthcare Age: 67 YRS ?: 1945 ?Sex:M ?[address] )[id number] ?? Adm Dt: 08/31/2013 ?[place], [place] ??[address] Created: 09/02/2013 ??0036 ?? Pt. Type: R ? Discharge Dt: 08/31/2013 ? Pathologists: Camila Worley MD Admit DrAriadne Attend Dr: CARLOS GUDINO ??K MD ? GENERAL CHEMISTRY ?Collection Date: ?08/31/13 ?Collection Time: ?727 ? Ref Range: ?? Units: [134-143] ?? MMOL/L ? SODIUM ? 142 [3.4-5.0] ?? MMOL/L ? POTASSIUM ?4.2 [99.0-108.0] MMOL/L ? CHLORIDE ? 106.0 [23.0-32.0] ??MMOL/L ? TOTAL CO2 ? 29.3 ?? [7-14] ?MMOL/L ? ANION GAP ? 11 ??[70-199] ?? MG/DL ?GLUCOSE ?122 f [6.4-8.0] ?? G/DL ? TOTAL PROTEIN ?7.3 [3.3-4.5] ?? G/DL ? ALBUMIN ?3.9 [1.1-1.8] ?A/G RATIO ?1.1 [8.6-9.8] ?? MG/DL ?CALCIUM ?8.8 [0.0-1.1] ?? MG/DL ?BILI TOTAL ? 0.4 ??[44-125] ?? U/L ?ALK PHOS ?91 ??[10-45] ?U/L ?AST(SGOT) ? 35 f ??[15-70] ?U/L ?ALT(SGPT) ? 38 f [6.0-23.0] ??MG/DL ?BUN ? 15.0 ??[10-20] ? B/C RATIO ? 11 [0.60-1.30] ??MG/DL ?CREATININE ?1.36 H Footnotes and Symbols: H = High, f = Footnote GLUCOSE (02/01/13 -- Current) Note:The glucose is assumed non fasting Fastin-99 mg/dl Random: 70-199 mg/dl Either a fasting glucose > 126 mg/dL or a random glucose > 200 mg/dL plus symptoms is diagnostic of diabetes when confirmed on another day. Fasting values > 100 mg/dl but < 125 mg/dL are diagnostic of impaired fasting glucose. New reference ranges implemented 01/10/2013. AST(SGOT) (07/14/13 -- Current) ALT(SGPT) (09/21/12 -- Current) ?? CONTINUED ?Page: ?? 1 Patient No: [id number] ? [facility] Patient Name: ANIYAH RAMIREZ ?[facility] Age: 67 YRS ?: 1945 ?Sex:M ?[address] )[id number] ?? Adm Dt: 08/31/2013 ?[place] ??[address] Created: 09/02/2013 ??0036 ?? Pt. Type: R ? Discharge Dt: 08/31/2013 ? Pathologists: Camila Worley MD Admit Attend Dr: CARLOS GUDINO ??K ?LIPIDS ?Collection Date: ?08/31/13 ?Collection Time: ?727 ? Ref Range: ?? Units: ? MG/DL ?CHOLESTEROL ?147 f ? MG/DL ?HDL CHOLESTEROL ? 67 f ? MG/DL ?TRIGLYCERIDES ? 92 f ?08/31/13 0728 Current guidelines recommend that lipid screen be ??performed on fasting blood samples for heart risk stratification. FOOTNOTE ADDED ON ?? 08/31/13 ?? AT 0842 BY 999 ? MG/DL ?NON HDL CALC ?80 f Footnotes and Symbols: f = Footnote [...] ?? CONTINUED ?Page: ?? 2 Patient No: [id number] ? [facility] Patient Name: ANIYAH RAMIREZ ?[facility] Age: 67 YRS ?: 1945 ?Sex:M ?[address] )[id number] ?? Adm Dt: 08/31/2013 ?[place], [place] ??[address] Created: 09/02/2013 ??0036 ?? Pt. Type: R ? Discharge Dt: 08/31/2013 ? Pathologists: Camila Worley MD Admit Attend Dr: CARLOS GUDINO ??K ?LIPIDS ?Collection Date: ?08/31/13 ?Collection Time: ?0728 ? Ref Range: ?? Units: ?LDL CHOL CALC ? 62 f Footnotes and Symbols: f = Footnote LDL [...] ? Page: ?? 3 us Historical Provider MD LAB BLOOD ORDERABLES Isela l Result HISTORICAL RESULTS documented in this encounter Visit Diagnoses Diagnosis Benign essential hypertension Essential hypertension, benign Other and unspecified hyperlipidemia documented in this encounter
--- OUTSIDE RECORDS SUMMARY | 2024-03-03 11:46 | XMS_ITS | Encounter Summary ---
Author Organization 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 CALL Gender Identity Not on file Sexual Orientation Not on file documented as of this encounter Plan of Treatment Not on file documented as of this encounter Procedures Procedure Name Priority Date/Time Associated Diagnosis Comments DISCHARGE LABORATORY CUMULATIVE REPORT 02/13/2016 SERUM THYROXINE (T4), FREE Routine 02/12/2016 9:54 AM DIRECTOR CALL SERUM IRON PROFILE Routine 02/12/2016 9: 54 AM DIRECTOR CALL SERUM FERRITIN Routine 02/12/2016 9:54 AM DIRECTOR CALL SERUM CYANOCOBALAMIN (VITAMIN B12) Routine 02/12/2016 9:54 AM DIRECTOR CALL BLOOD CELL COUNT (CBC) Routine 6 9:54 AM DIRECTOR CALL BLOOD CELL MORPHOLOGIC EXAM Routine 02/12/2016 9:54 AM DIRECTOR CALL SERUM THYROID-STIMULATING HORMONE (TSH) Routine 02/12/2016 3:54 AM DIRECTOR CALL documented in this encounter Results * DISCHARGE LABORATORY CUMULATIVE REPORT (02/13/2016) Narrative 02/13/2016 Ordered by an unspecified provider. Historical Provider LAB BLOOD ORDERABLES Isela l Result * Serum cyanocobalamin (vitamin B12) (02/12/2016 9:54 AM DIRECTOR CALL) Cyanocobalamin (Vit B12) 664 180 - 920 pg/ml CDR HISTORICAL RESULTS Comment: Interpretive Data Reference Interval (greater than 1 year of age) Normal: ? 180 - 920 pg/ml Indeterminate: ??145 - 180 pg/ml Deficient: ? <145 pg/ml Current Interpretive Data was last revised on 2015 Serum 02/12/2016 9:54 AM DIRECTOR CALL Historical Provider LAB BLOOD ORDERABLES Isela l Result CDR HISTORICAL RESULTS * Serum iron profile (02/12/2016 9:54 AM DIRECTOR CALL) Iron 59 50 - 155 mcg/dl CDR HISTORICAL RESULTS UIBC 250 110 - 350 mcg/dl CDR HISTORICAL RESULTS TIBC 309 220 - 420 mcg/dl CDR HISTORICAL RESULTS Iron saturation 19 15 - 50 % CDR HISTORICAL RESULTS Serum 02/12/2016 9:54 AM DIRECTOR CALL Historical Provider LAB BLOOD ORDERABLES Iseal l Result CDR HISTORICAL RESULTS * Serum ferritin (02/12/2016 9:54 AM DIRECTOR CALL) Ferritin 187 25 - 320 ng/ml CDR HISTORICAL RESULTS Serum 02/12/2016 9:54 AM DIRECTOR CALL [facility] Provider LAB BLOOD ORDERABLES Isela l Result CDR HISTORICAL RESULTS * Serum thyroxine (T4), free (02/12/2016 9:54 AM DIRECTOR CALL) Free T4 1.1 0.8 - 1.8 ng/dl CDR HISTORICAL RESULTS Serum 02/12/2016 9:54 AM DIRECTOR CALL Historical Provider MD LAB BLOOD ORDERABLES Isela l Result Performing Organization Address [facility] Co de Phone Number CDR HISTORICAL RESULTS * (ABNORMAL) Blood cell count (CBC) (02/12/2016 9:54 AM DIRECTOR CALL) WBC 7.1 3.8 - 9.8 K/cumm CDR HISTORICAL RESULTS RBC 4.06(L) 4.50 - 5.70 M/cumm CDR HISTORICAL RESULTS Hgb 12.0(L) 13.8 - 17.2 g/dl CDR HISTORICAL RESULTS Hct 35.4(L) 40.7 - 50.3 % CDR HISTORICAL RESULTS MCV 87.2 80.0 - 100.0 fl CDR HISTORICAL RESULTS MCH 29.6 26.7 - 33.7 pg CDR HISTORICAL RESULTS MCHC 33.9 32.7 - 36.0 g/dl CDR HISTORICAL RESULTS Rdw 11.5 11.5 - 14.6 % CDR HISTORICAL RESULTS Platelets 232 140 - 440 K/cumm CDR HISTORICAL RESULTS MPV 10.4 8.0 - 12.0 fl CDR HISTORICAL RESULTS NRBC 0.0 0.0 - 0.0 % CDR HIST ORICAL RESULTS NRBC, abs 0.00 0.00 - 0.00 K/cumm CDR HISTORICAL RESULTS Blood specimen (specimen) 02/12/2016 9:54 AM DIRECTOR CALL Result [facility] Historical Provider MD LAB BLOOD ORDERABLES Isela l Result Performing Organization Address City/[facility] Co de Phone Number CDR HISTORICAL RESULTS * Blood cell morphologic exam (02/12/2016 9:54 AM DIRECTOR CALL) Pathologist [facility] Neutrophils 64.3 44.0 - 80.0 % CDR HISTORICAL RESULTS Immature granulocytes 1.0 0.0 - 1.0 % CDR HISTORICAL RESULTS Lymphocytes 23.6 13.0 - 44.0 % CDR HISTORICAL RESULTS Monos 9.0 2.0 - 11.0 % CDR HISTORICAL RESULTS Eosinophils 1.7 0.0 - 6.0 % CDR HISTORICAL RESULTS Basophils 0.4 0.0 - 3.0 % CDR HISTORICAL RESULTS Neutrophils, abs 4.6 1.6 - 7.0 K/cumm CDR HISTORICAL RESULTS Immature granulocyte, abs 0.1 0.0 - 0.2 K/cumm CDR HISTORICAL RESULTS Lymphocytes, abs 1.7 0.5 - 4.3 K/cumm CDR HISTORICAL RESULTS Monocytes, absolute 0.6 0.1 - 1.0 K/cumm CDR HISTORICAL RESULTS Eosinophils, abs 0.1 0.0 - 0.6 K/cumm CDR HISTORICAL RESULTS Basophils, abs 0.0 0.0 - 0.3 K/cumm CDR HISTORICAL RESULTS Blood specimen (specimen) 02/12/2016 9:54 AM DIRECTOR CALL Historical Provider LAB BLOOD ORDERABLES Isela l Result Performing Organization Address [facility] Co de Phone Number CDR HISTORICAL RESULTS * Serum thyroid-stimulating hormone (TSH) (02/12/2016 3:54 AM DIRECTOR CALL) TSH 3.25 0.30 - 5.00 mcIUnits/ml CDR HISTORICAL RESULTS Serum 02/12/2016 3:54 AM DIRECTOR CALL Narrative CDR HISTORICAL RESULTS - 02/12/2016 5:02 AM DIRECTOR CALL FAX RESULTS TO [phone] Historical Provider LAB BLOOD ORDERABLES Isela l Result Performing Organization Address City/State/[facility] Co de Phone Number CDR HISTORICAL RESULTS documented in this encounter Visit Diagnoses Diagnosis Anemia Unspecified anemia documented in this encounter
--- OUTSIDE RECORDS SUMMARY | 2024-03-03 11:46 | XMS_ITS | Encounter Summary ---
Author Organization [facility] Healthcare Address [address] [place] [address] Care Team Providers Care Spinneret Cleaner Name Role Phone Unavailable Primary Care Provider Unavailabl e Encounter Details Date Type Department Care Team (Late st Contact Info) Description 02/13/2015 9:24 AM SPORTS AGENT - 02/13/2015 11:59 PM SPORTS AGENT Hospital Encounter [facility] Jaylon Narayan MD [address] [place] [address] Essential (primary) hypertension; Hyperlipidemia Social History Tobacco Use Types Packs/Day Years Used Date Smoking Tobacco: Former Sex and Gender Information Value Date Recorded Sex Assigned at Not on file Legal Sex Male 3:56 AM SPORTS AGENT Gender Identity Not on file Sexual Orientation Not on file documented as of this encounter Plan of Treatment Not on file documented as of this encounter Procedures Procedure Name Priority Date/Time Associated Diagnosis Comments SERUM LIPID PANEL Routine 02/13/2015 9:3 1 AM SPORTS AGENT SERUM ESTIMATED GLOMERULAR FILTRATION RATE Routine 02/13/2015 9:31 AM SPORTS AGENT PLASMA COMPREHENSIVE METABOLIC PANEL Routine 02/13/2015 9:31 AM SPORTS AGENT DISCHARGE LABORATORY CUMULATIVE REPORT 02/13/2015 documented in this encounter Results * (ABNORMAL) Plasma comprehensive metabolic panel (02/13/2015 9:31 AM SPORTS AGENT) Sodium 139 135 - 145 mmol/L HISTORICAL RESULTS K, pl 4.4 3.5 - 5.1 mmol/L HISTORICAL RESULTS Chloride 101 97 - 110 mmol/L HISTORICAL RESULTS CO2 27 22 - 32 mmol/L HISTORICAL RESULTS A. gap 15 8 - 16 mmol/L HISTORICAL RESULTS Glucose 115 70 - 199 mg/dl HISTORICAL RESULTS Comment: Interpretive Data Note:The glucose is assumed non fasting Fastin-99 mg/dL Random: ??70-199 mg/dL Either a fasting glucose > 126 mg/dL or a random glucose > 200 mg/dL plus symptoms is diagnostic of diabetes when confirmed on another day. Fasting values > 100 mg/dL but < 125 mg/dL are diagnostic of impaired fasting glucose. Current interpretive data was last revised on 2014. BUN 21.9 8.0 - 25.0 mg/dl HISTORICAL RESULTS Creatinine 1.00 0.70 - 1.30 mg/dl HISTORICAL RESULTS BUN/creat ratio 22(H) 10 - 20 HIST ORICAL RESULTS Calcium 9.9 8.6 - 10.2 mg/dl HISTORICAL RESULTS Protein, sr 7.3 6.0 - 8.4 g/dl HISTORICAL RESULTS Alb 4.5 3.6 - 5.0 g/dl HISTORICAL RESULTS Alb/glob ratio 1.6 1.1 - 1.8 ratio HISTORICAL RESULTS Alk phos 65 40 - 130 Units/L HISTORICAL RESULTS ALT 28 5 - 50 Units/L HISTORICAL RESULTS AST 30 10 - 45 Units/L HISTORICAL RESULTS Bilirubin 0.4 <=1.2 mg/dl HISTORICAL RESULTS Plasma 02/13/2015 9:31 AM SPORTS AGENT us Historical Provider LAB BLOOD ORDERABLES Isela l Result HISTORICAL RESULTS * (ABNORMAL) Serum lipid panel (02/13/2015 9:31 AM SPORTS AGENT) Cholesterol 198 40 - 199 mg/dl HISTORICAL RESULTS Comment: Interpretive Data Desirable: ??Less than 200 mg/dl ? Borderline High: ?200 - 239 mg/dl ? High: ??Greater than ?? 239 mg/dl Current interpretive data was last revised on 2014. Triglycerides 197(H) <=150 mg/dl HISTORICAL RESULTS Comment: Interpretive Data Normal: ? Less than 150 mg/dl Borderline high: ??105-199 mg/dl ?? High: ? 200-499 mg/dl ? Very high: ??Greater than or equal to 500 mg/dl Current interpretive data was last revised on 2014. HDL 75(H) 40 - 60 mg/dl HISTORICAL RESULTS Comment: Interpretive Data Low HDL Cholesterol: ? Less than 40 mg/dl Normal HDL Cholesterol: ??40-60 mg/dl High HDL Cholesterol: ?Greater than 60 mg/dl Current interpretive data was last revised on 2014. LDL 84 mg/dl HISTORICAL RESULTS Comment: Interpretive Data Optimal ? Less than [...] data was last revised on 2014. Non-HDL cholesterol, calculated 123 mg/dl HISTORICAL RESULTS Comment: Interpretive Data Optimal ? Less than 130 mg/dL Low Risk ?130 - 159 mg/dL Moderate Risk ? 160 - 189 mg/dL High Risk ? Greater than or equal to 190 mg/dL Current interpretive data was last revised on 2014. Serum 02/13/2015 9:31 AM SPORTS AGENT Historical Provider LAB BLOOD ORDERABLES Isela l Result Performing Organization Address City/[facility] Co de Phone Number HISTORICAL RESULTS * Serum estimated glomerular filtration rate (02/13/2015 9:31 AM SPORTS AGENT) eGFR >60 ml/min/1.7 3 m2 HISTORICAL RESULTS Comment: Interpretation of Estimated GFR (eGFR): Normal ?>/= 60 mL/min/1.73m2 Possible Chronic Kidney Disease ??15 - 59 mL/min/1.73m2 Possible Kidney Failure ?< 15 ??mL/min/1.73m2 If -Bur[place]ian multiply value by 1.16. ??Estimated glomerular filtration rate is determined by the CKD-EPI equation recommended by the National Kidney Foundation (KDIGO 2012 Clinical Practice Guideline for the Evaluation and Management of Chronic Kidney Disease. ??Kidney Intnl Suppl Mar 2012;3:1). ??The CKD-EPI equation should not be used in acute renal failure or acute kidney injury and is not valid in children. Serum 02/13/2015 9:31 AM SPORTS AGENT Result [facility] Provider LAB BLOOD ORDERABLES Isela l Result Performing Organization Address [facility] de Phone Number HISTORICAL RESULTS * DISCHARGE LABORATORY CUMULATIVE REPORT (02/13/2015) Narrative 02/13/2015 Ordered by an unspecified provider. Result [facility] Provider LAB BLOOD ORDERABLES Isela l Result documented in this encounter Visit Diagnoses Diagnosis Essential (primary) hypertension Unspecified essential hypertension Hyperlipidemia Other and unspecified hyperlipidemia documented in this encounter
--- OUTSIDE RECORDS SUMMARY | 2024-03-03 11:46 | XMS_ITS | Encounter Summary ---
Author Organization [facility] Healthcare Address [address] [place] [address] Care Team Providers Care Account Services Coordinator Name Role Phone Jaylon Gudino MD Primary Care Provider [phone]- [phone] Encounter Details Date Type Department Care Team (Late st Contact Info) Description 03/17/2017 8:55 AM DELI SLICER Lab [address] [address] Jaylon Gudino MD [address] [place] [address] Discharge Disposition: Discharge to home or self care Social History Tobacco Use Types Packs/Day Years Used Date Smoking Tobacco: Former Sex and Gender Information Value Date Recorded Sex Assigned at Not on file Legal Sex Male 3:56 AM DELI SLICER Gender Identity Not on file Sexual Orientation Not on file documented as of this encounter Discharge Disposition Disposition Code Departure Means Destination Discharge to home or self care documented in this encounter Plan of Treatment Not on file documented as of this encounter Procedures Procedure Name Priority Date/Time Associated Diagnosis Comments EGFR Routine 03/17/2017 8:54 AM DELI SLICER LIPID PANEL Routine 03/17/2017 8:54 AM DELI SLICER COMPREHENSIVE METABOLIC PANEL Routine 03/17/2017 8:54 AM DELI SLICER DISCHARGE LABORATORY CUMULATIVE REPORT 03/17/2017 12:00 AM DELI SLICER documented in this encounter Results * eGFR (03/17/2017 8:54 AM DELI SLICER) [facility] Signature eGFR >60 mL/min/1.7 3 m2 SHANE ALANIZ ([place]ANDER) Comment: Interpretive Data Reference Interval Normal ?>/= 90 mL/min/1.73m2 Mildly decreased* ? 60 - 89 mL/min/1.73m2 Mildly to moderately decreased ?45 - 59 mL/min/1.73m2 Moderately to severely decreased ??30 - 44 mL/min/1.73m2 Severely decreased ?15 - 29 mL/min/1.73m2 Kidney Failure ?< 15 ??mL/min/1.73m2 *Relative to young adult level If -Pakistani multiply value by 1.16. Estimated glomerular filtration [...] was last reviewed 2015. Blood specimen (specimen) 03/17/2017 8:54 AM DELI SLICER 03/17/2017 9:22 AM DELI SLICER Narrative [facility]ANE ALANIZ ([place]ER) - 03/17/2017 10:08 AM DELI SLICER us Jaylon Gudino MD LAB BLOOD ORDERABLES Final Result SHANE ALAINZ ([place]ANDER) [address] [facility] Department [place] [address] * (ABNORMAL) Lipid panel (03/17/2017 8:54 AM DELI SLICER) Cholesterol 208(H) 40 - 199 mg/dL SHANE ALANIZ ([place]ER) Comment: Interpretive Data Desirable: ??Less than 200 mg/dl ? Borderline High: ?200 - 239 mg/dl ? High: ??Greater than ?? 239 mg/dl Current interpretive data was last revised on 2014. Triglycerides 226.0(H) <=150.0 mg/dL [facility] ([facility]) Comment: Interpretive Data Normal: ? Less than 150 mg/dl Borderline high: ??150-199 mg/dl ?? High: ? 200-499 mg/dl ? Very high: ??Greater than or equal to 500 mg/dl Current interpretive data was last revised on 2016. HDL 67(H) 40 - 60 mg/dL [facility] ([facility]) Comment: Interpretive Data Low HDL Cholesterol: ? Less than 40 mg/dl Normal HDL Cholesterol: ??40-60 mg/dl High HDL Cholesterol: ?Greater than 60 mg/dl Current interpretive data was last revised on 2014. LDL, calculated 96 mg/dL [facility] ([facility]) Comment: Interpretive Data Optimal [...] was last revised on 2014. Non-HDL Cholesterol 141 mg/dL [facility] ([facility]) Comment: Interpretive Data Optimal ? Less than 130 mg/dL Low Risk ?130 - 159 mg/dL Moderate Risk ? 160 - 189 mg/dL High Risk ? Greater than or equal to 190 mg/dL Current interpretive data was last revised on 2014. Blood specimen (specimen) 03/17/2017 8:54 AM DELI SLICER 03/17/2017 9:22 AM DELI SLICER Narrative [facility] ([place]) - 03/17/2017 10:08 AM DELI SLICER fax results to [phone]# [phone] us Jaylon Gudino MD LAB BLOOD ORDERABLES Final Result [facility] ([facility]) [address] [facility] Department [place] [address] * Comprehensive metabolic panel (03/17/2017 8:54 AM DELI SLICER) Sodium 142 135 - 145 mmol/L [facility] ([facility]) Potassium, pl 4.0 3.3 - 4.9 mmol/L [facility] ([facility]) CO2 27 22 - 32 mmol/L [facility] ([facility]) BUN 23 8 - 25 mg/dL [facility] ([facility]) Glucose 122 70 - 199 mg/dL [facility] ([place]) [...] Current interpretive data was last revised 2017. Creatinine 1.01 0.80 - 1.30 mg/dL [facility] ([place]) Calcium 9.4 8.5 - 10.3 mg/dL [facility] ([facility]) Chloride 102 97 - 110 mmol/L [facility] ([facility]) Albumin 4.6 3.5 - 5.0 g/dL [facility] ([facility]) AST 27 10 - 50 Units/L [facility] ([facility]) ALT 26 7 - 55 Units/L [facility] ([facility]) Alk phos 69 40 - 130 Units/L [facility] ([facility]) Bilirubin, total 0.4 0.1 - 1.2 mg/dL [facility] ([place]) Protein, pl 7.3 6.5 - 8.5 g/dL [facility] ([facility]) Anion gap 13 2 - 15 mmol/L [facility] ([facility]) Blood specimen (specimen) 03/17/2017 8:54 AM DELI SLICER 03/17/2017 9:22 AM DELI SLICER Narrative [facility] ([place]) - 03/17/2017 10:08 AM DELI SLICER us Jaylon Gudino MD LAB BLOOD ORDERABLES Final Result [facility] ([place]) [address] [facility] Department [place] [address] * DISCHARGE LABORATORY CUMULATIVE REPORT (03/17/2017 12:00 AM DELI SLICER) Narrative 03/17/2017 12:00 AM DELI SLICER Ordered by an unspecified provider. us Historical Provider LAB BLOOD ORDERABLES Isela l Result documented in this encounter Visit Diagnoses Not on filedocumented in this encounter Care Teams Account Services Coordinator Relationship Specialty Start Date End Date Jaylon Gudino MD [address] [place] [address] PCP - General 07/07/16 07/22/22 documented as of this encounter
--- OUTSIDE RECORDS SUMMARY | 2024-03-03 11:46 | XMS_ITS | Encounter Summary ---
Author Organization [facility] Healthcare Address [address] [place] [address] Care Team Providers Care Shooter'S Helper Name Role Phone Unavailable Primary Care Provider Unavailabl e Encounter Details Date Type Department Care Team (Late st Contact Info) Description 09/19/2013 7:53 AM CDT - 09/19/2013 11:59 PM CDT Hospital Encounter [facility] Carlos Gudino MD [address] [place] [address] Other nonspecific findings on examination of blood Social History Tobacco Use Types Packs/Day Years Used Date Smoking Tobacco: Former Sex and Gender Information Value Date Recorded Sex Assigned at Not on file Legal Sex Male 3:56 AM FINAL INSPECTOR PAPER Gender Identity Not on file Sexual Orientation Not on file documented as of this encounter Plan of Treatment Not on file documented as of this encounter Procedures Procedure Name Priority Date/Time Associated Diagnosis Comments SERUM UREA NITROGEN (BUN) Routine 09/19/2013 8:00 AM CDT SERUM CREATININE Routine 09/19/2013 8:00 AM CDT DISCHARGE LABORATORY CUMULATIVE REPORT Routine 09/19/2013 12:00 AM CDT documented in this encounter Results * Serum urea nitrogen (BUN) (09/19/2013 8:00 AM CDT) BUN 22.0 6.0 - 23.0 mg/dl HISTORICAL RESULTS Serum 09/19/2013 8:00 AM CDT us Carlos Gudino MD LAB BLOOD ORDERABLES Final Result HISTORICAL RESULTS * Serum creatinine (09/19/2013 8:00 AM CDT) Creatinine 1.29 0.60 - 1.30 mg/dl HISTORICAL RESULTS Serum 09/19/2013 8:00 AM CDT us Carlos Gudino MD LAB BLOOD ORDERABLES Final Result Performing Organization Address [facility] Co de Phone Number HISTORICAL RESULTS * Discharge Laboratory Cumulative Report (09/19/2013 12:00 AM CDT) 09/19/2013 Narrative HISTORICAL RESULTS - 09/21/2013 12:37 AM CDT Patient No: [id number] ? [facility] Patient Name: ANIYAH ALMONTE ?[facility] Healthcare Age: 68 YRS ?: 1945 ?Sex:M ?[address] )[id number] ?? Adm Dt: 09/19/2013 ?[place], [place] ??[address] Created: 09/21/2013 ??0037 ?? Pt. Type: R ? Discharge Dt: 09/19/2013 ? Pathologists: Camila Worley MD Admit CARLOS Plunkett ??[facility] ? GENERAL CHEMISTRY ?Collection Date: ?09/19/13 ?Collection Time: ?0800 ? Ref Range: ?? Units: [6.0-23.0] ??MG/DL ?BUN ? 22.0 [0.60-1.30] ??MG/DL ?CREATININE ?1.29 ?? END OF CHART ? Page: ?? 1 us Historical Provider LAB BLOOD ORDERABLES Isela jackson Result Performing Organization Address City/State/[facility] Co de Phone Number HISTORICAL RESULTS documented in this encounter Visit Diagnoses Diagnosis Other nonspecific findings on examination of blood documented in this encounter
--- OUTSIDE RECORDS SUMMARY | 2024-03-03 11:46 | XMS_ITS | Encounter Summary ---
Author Organization [facility] Healthcare Address [address] [place] [address] Care Team Providers Care Skid Man Name Role Phone Unavailable Primary Care Provider Unavailabl e Encounter Details Date Type Department Care Team (Late st Contact Info) Description 03/28/2014 8:08 AM UNDERGROUND ELECTRICIAN - 03/28/2014 11:59 PM UNDERGROUND ELECTRICIAN Hospital Encounter [facility] Carlos Narayan MD [address] [place] [address] Special screening for malignant neoplasm of prostate; Routine general medical examination at a health care facility; Other and unspecified hyperlipidemia Social History Tobacco Use Types Packs/Day Years Used Date Smoking Tobacco: Former Sex and Gender Information Value Date Recorded Sex Assigned at Not on file Legal Sex Male 3:56 AM UNDERGROUND ELECTRICIAN Gender Identity Not on file Sexual Orientation Not on file documented as of this encounter Plan of Treatment Not on file documented as of this encounter Procedures Procedure Name Priority Date/Time Associated Diagnosis Comments SERUM PROSTATE-SPECIFIC ANTIGEN (PSA) Routine 03/28/2014 8:15 AM UNDERGROUND ELECTRICIAN SERUM COMPREHENSIVE METABOLIC PANEL Routine 03/28/2014 8:15 AM UNDERGROUND ELECTRICIAN DISCHARGE LABORATORY CUMULATIVE REPORT Routine 03/28/2014 12:00 AM UNDERGROUND ELECTRICIAN documented in this encounter Results * Serum prostate-specific antigen (PSA) (03/28/2014 8:15 AM UNDERGROUND ELECTRICIAN) PSA 1.72 0.00 - 4.00 ng/ml HISTORICAL RESULTS Serum 03/28/2014 8:15 AM UNDERGROUND ELECTRICIAN Carlos Gudino MD LAB BLOOD ORDERABLES Final Result HISTORICAL RESULTS * (ABNORMAL) Serum comprehensive metabolic panel (03/28/2014 8:15 AM UNDERGROUND ELECTRICIAN) BUN 24.0(H) 6.0 - 23.0 mg/dl HISTORICAL RESULTS Sodium 134 134 - 143 mmol/L HISTORICAL RESULTS Potassium, sr 3.8 3.4 - 5.0 mmol/L HISTORICAL RESULTS Comment:HEMOLYSIS PRESENT PO TASSIUM MAY BE AFFECTED Chloride 98(L) 99 - 108 mmol/L HISTORICAL RESULTS CO2 30 23 - 32 mmol/L HISTORICAL RESULTS Glucose 110 70 - 199 mg/dl HISTORICAL RESULTS Comment: [...] glucose. New reference ranges implemented 01/10/2013. Creatinine 1.25 0.60 - 1.30 mg/dl HISTORICAL RESULTS BUN/creat ratio 19 10 - 20 HIST ORICAL RESULTS A. gap 10 7 - 14 mmol/L HISTORICAL RESULTS Protein, sr 7.1 6.4 - 8.0 g/dl HISTORICAL RESULTS Alb 3.9(L) 4.3 - 4.5 g/dl HISTORICAL RESULTS Alb/glob ratio 1.2 1.1 - 1.8 HISTO RICAL RESULTS Calcium 9.2 8.6 - 9.8 mg/dl HISTORICAL RESULTS Bilirubin 0.4 0.0 - 1.1 mg/dl HISTORICAL RESULTS Alk phos 96 44 - 125 Units/L HISTORICAL RESULTS AST 31 10 - 45 Units/L HISTORICAL RESULTS Comment: HEMOLYSIS PRESENT AST(SGOT) MAY BE FALSELY ELEVATED ALT 38 15 - 70 Units/L HISTORICAL RESULTS Serum 03/28/2014 8:15 AM UNDERGROUND ELECTRICIAN Carlos Gudino MD LAB BLOOD ORDERABLES Final Result HISTORICAL RESULTS * Discharge Laboratory Cumulative Report (03/28/2014 12:00 AM UNDERGROUND ELECTRICIAN) 03/28/2014 Narrative HISTORICAL RESULTS - 03/30/2014 12:37 AM UNDERGROUND ELECTRICIAN Patient No: [id number] ? [facility] Patient Name: ANIYAH RAMIREZ ?[facility] Age: 68 YRS ?: 1945 ?Sex:M ?[address] )[id number] ?? Adm Dt: 03/28/2014 ?[place], [place] ??[address] Created: 03/30/2014 ??0037 ?? Pt. Type: R ? Discharge Dt: 03/28/2014 ? Pathologists: Camila Worley MD Admit Attend Dr: CARLOS GUDINO ??K ? GENERAL CHEMISTRY ?Collection Date: ?03/28/14 ?Collection Time: ?0815 ? Ref Range: ?? Units: [134-143] ?? MMOL/L ? SODIUM ? 134 [3.4-5.0] ?? MMOL/L ? POTASSIUM ?3.8 f ?03/28/14 08 HEMOLYSIS PRESENT POTASSIUM MAY BE AFFECTED FOOTNOTE ADDED ON ?? 03/28/14 ?? AT 1016 BY 999 [99.0-108.0] MMOL/L ? CHLORIDE ?98.0 L [23.0-32.0] ??MMOL/L ? TOTAL CO2 ? 29.9 ?? [7-14] ?MMOL/L ? ANION GAP ? 10 ??[70-199] ?? MG/DL ?GLUCOSE ?110 f [6.4-8.0] ?? G/DL ? TOTAL PROTEIN ?7.1 [4.3-4.5] ?? G/DL ? ALBUMIN ?3.9 L [1.1-1.8] ?A/G RATIO ?1.2 [8.6-9.8] ?? MG/DL ?CALCIUM ?9.2 [0.0-1.1] ?? MG/DL ?BILI TOTAL ? 0.4 ??[44-125] ?? U/L ?ALK PHOS ?96 ??[10-45] ?U/L ?AST(SGOT) ? 31 f ?03/28/14 0815 HEMOLYSIS PRESENT AST(SGOT) MAY BE FALSELY ELEVATED FOOTNOTE ADDED ON ?? 03/28/14 ?? AT 1016 BY 999 Footnotes and Symbols: L = Low, f = Footnote GLUCOSE (02/01/13 -- Current) [...] ranges implemented 01/10/2013. AST(SGOT) (07/14/13 -- Current) ?? CONTINUED ?Page: ?? 1 Patient No: [id number] ? [facility] Patient Name: ANIYAH RAMIREZ ?[facility] Age: 68 YRS ?: 1945 ?Sex:M ?[address] )[phone] ?? Adm Dt: 03/28/2014 ?[place], [place] ??[address] Created: 03/30/2014 ??0037 ?? Pt. Type: R ? Discharge Dt: 03/28/2014 ? Pathologists: Camila Worley MD Admit Dr. Washburn Dr: CARLOS GUDINO ??K ? GENERAL CHEMISTRY ?Collection Date: ?03/28/15 ?Collection Time: ?0815 ? Ref Range: ?? Units: ??[15-70] ?U/L ?ALT(SGPT) ? 38 f [6.0-23.0] ??MG/DL ?BUN ? 24.0 H ??[10-20] ? B/C RATIO ? 19 [0.60-1.30] ??MG/DL ?CREATININE ?1.25 ? TUMOR MARKERS ?Collection Date: ?03/28/14 ?Collection Time: ?0815 ? Ref Range: ?? Units: [0.00-4.00] ??NG/ML ?PSA SCREENING ? 1.72 Footnotes and Symbols: H = High, f = Footnote ALT(SGPT) (09/21/12 -- Current) ?? END OF CHART ? Page: ?? 2 us Historical Provider LAB BLOOD ORDERABLES Isela l Result HISTORICAL RESULTS documented in this encounter Visit Diagnoses Diagnosis Special screening for malignant neoplasm of prostate Routine general medical examination at a health care facility Other and unspecified hyperlipidemia documented in this encounter
--- OUTSIDE RECORDS SUMMARY | 2024-03-03 11:46 | XMS_ITS | Encounter Summary ---
Author Organization [facility] Care Team Providers Care Agronomy Internship Name Role Phone Unavailable Primary Care Provider Unavailabl e Encounter Details Date Type Department Care Team (Late st Contact Info) Description 03/14/2016 9:08 AM MANAGER PRACTICE - 03/14/2016 11:59 PM MANAGER PRACTICE Hospital Encounter [facility] Anderson MD [address] [facility] [address] [place] [address] Complete tear of right rotator cuff; Muscle wasting and atrophy, not elsewhere classified, right shoulder Social History Tobacco Use Types Packs/Day Years Used Date Smoking Tobacco: Former Sex and Gender Information Value Date Recorded Sex Assigned at Not on file Legal Sex Male 3:56 AM MANAGER PRACTICE Gender Identity Not on file Sexual Orientation Not on file documented as of this encounter Plan of Treatment Not on file documented as of this encounter Procedures Procedure Name Priority Date/Time Associated Diagnosis Comments US EXTREMITY COMPLETE Routine 03/14/2016 10:06 AM MANAGER PRACTICE US EXTREMITY COMPLETE Routine 03/14/2016 10:06 AM MANAGER PRACTICE documented in this encounter Results * US Extremity Complete (03/14/2016 10:06 AM MANAGER PRACTICE) Anatomical Region Laterality Modality Extremity N/A Ultrasound 03/14/2016 10:0 6 AM MANAGER PRACTICE Narrative 03/14/2016 11:28 AM MANAGER PRACTICE JASPAL CEE M.D. MATIAS SALVADOR M.D. FINAL REPORT The radiology attending physician has personally reviewed this study, and has reviewed and/or edited this written report and agrees with it. ACC# ??Date Time ??Exam [id number] Mar 14, 2016 10:06:00 [id number] Extrm Sono Shoulder R [id number] Mar 14, 2016 10:06:00 [id number] Extrm Sono Shoulder L ACC# ??Date Time ??Exam [id number] Mar 14, 2016 10:06:00 22804 Extrm Sono Shoulder R [id number] Mar 14, 2016 10:06:00 [id number] Extrm Sono Shoulder L EXAMINATION: ?BILATERAL SHOULDER SONOGRAM HISTORY: ??70-year-old man ??with left greater than right shoulder pain. According to the patient, there has been a history of surgical repair of both rotator cuffs. FINDINGS: Right Shoulder: The biceps tendon is not visualized compatible biceps tendon rupture. There is marked thinning of the inferior portion of the subscapularis tendon that is most consistent with a full-thickness tear. There is a full-thickness tear of the supraspinatus tendon that extends into the infraspinatus tendon. The tear measures approximately 33 mm in length and 20 mm in width. There is atrophy of the right supraspinatus muscle with fatty infiltration as compared to the left side. Fatty atrophy of the right infraspinatus muscle is seen as well, however, to a lesser extent. Teres minor muscle bellies are symmetric bilaterally. Left Shoulder: The biceps tendon is intact with mild medial subluxation with a portion of the tendon extending to over the lesser tuberosity. There is no tendon sheath or subdeltoid bursal effusion. The subscapular tendon is intact but there is mild thinning of the subscapularis tendon diffusely without a focal component. ??There is heterogeneity of the undersurface of the supraspinatus/infraspinatus tendons. The pattern is not typical of a partial-thickness tear and is favored to represent postsurgical change. There is no full-thickness tear The remainder of the rotator cuff is intact. ?? There is no atrophy or fatty infiltration of the left supraspinatus, infraspinatus, or teres minor muscles. ?? IMPRESSION: 1. Full-thickness tear of the right rotator cuff involving the supraspinatus, infraspinatus, and probably the inferior aspect of the subscapularis tendon. 2. Atrophy with fatty infiltration of the right supraspinatus and infraspinatus muscles. ?? Requested By: Dictated By: ?? MATIAS SALVADOR M.D. ??on Mar 14 2016 11:14A This document has been electronically signed by: JASPAL CEE M.D. on Mar 14 2016 11:28A [id number] Procedure Note Provider, MD Gerson - 07/09/2016 JASPAL CEE M.D. MATIAS SALVADOR M.D. FINAL REPORT The radiology attending physician has personally reviewed this study, and has reviewed and/or edited this written report and agrees with it. ACC# Date Time Exam [id number] Mar 14, 2016 10:06:00 01719 Extrm Sono Shoulder R [id number] Mar 14, 2016 10:06:00 [id number] Extrm Sono Shoulder L ACC# Date Time Exam [id number] Mar 14, 2016 10:06:00 [id number] Extrm Sono Shoulder R [id number] Mar 14, 2016 10:06:00 [id number] Extrm Sono Shoulder L EXAMINATION: BILATERAL SHOULDER SONOGRAM HISTORY: 70-year-old man with left greater than right shoulder pain. According to the patient, there has been a history of surgical repair of both rotator cuffs. FINDINGS: Right Shoulder: The biceps tendon is not visualized compatible biceps tendon rupture. There is marked thinning of the inferior portion of the subscapularis tendon that is most consistent with a full-thickness tear. There is a full-thickness tear of the supraspinatus tendon that extends into the infraspinatus tendon. The tear measures approximately 33 mm in length and 20 mm in width. There is atrophy of the right supraspinatus muscle with fatty infiltration as compared to the left side. Fatty atrophy of the right infraspinatus muscle is seen as well, however, to a lesser extent. Teres minor muscle bellies are symmetric bilaterally. Left Shoulder: The biceps tendon is intact with mild medial subluxation with a portion of the tendon extending to over the lesser tuberosity. There is no tendon sheath or subdeltoid bursal effusion. The subscapular tendon is intact but there is mild thinning of the subscapularis tendon diffusely without a focal component. There is heterogeneity of the undersurface of the supraspinatus/infraspinatus tendons. The pattern is not typical of a partial-thickness tear and is favored to represent postsurgical change. There is no full-thickness tear The remainder of the rotator cuff is intact. There is no atrophy or fatty infiltration of the left supraspinatus, infraspinatus, or teres minor muscles. IMPRESSION: 1. Full-thickness tear of the right rotator cuff involving the supraspinatus, infraspinatus, and probably the inferior aspect of the subscapularis tendon. 2. Atrophy with fatty infiltration of the right supraspinatus and infraspinatus muscles. Requested By: Dictated By: MATIAS SALVADOR M.D. on Mar 14 2016 11:14A This document has been electronically signed by: JASPAL CEE M.D. on Mar 14 2016 11:28A [id number] us Historical Provider MD SHINE US PROCEDURES Final R esult * US Extremity Complete (03/14/2016 10:06 AM MANAGER PRACTICE) Anatomical Region Laterality Modality Extremity N/A Ultrasound 03/14/2016 10:0 6 AM MANAGER PRACTICE Narrative 03/14/2016 11:28 AM MANAGER PRACTICE JASPAL CEE M.D. MATIAS SALVADOR M.D. FINAL REPORT The radiology attending physician has personally reviewed this study, and has reviewed and/or edited this written report and agrees with it. ACC# ??Date Time ??Exam [id number] Mar 14, 2016 10:06:00 05125 Extrm Sono Shoulder R [id number] Mar 14, 2016 10:06:00 53917 Extrm Sono Shoulder L ACC# ??Date Time ??Exam [id number] Mar 14, 2016 10:06:00 [id number] Extrm Sono Shoulder R [id number] Mar 14, 2016 10:06:00 01611 Extrm Sono Shoulder L EXAMINATION: ?BILATERAL SHOULDER SONOGRAM HISTORY: ??70-year-old man ??with left greater than right shoulder pain. According to the patient, there has been a history of surgical repair of both rotator cuffs. FINDINGS: Right Shoulder: The biceps tendon is not visualized compatible biceps tendon rupture. There is marked thinning of the inferior portion of the subscapularis tendon that is most consistent with a full-thickness tear. There is a full-thickness tear of the supraspinatus tendon that extends into the infraspinatus tendon. The tear measures approximately 33 mm in length and 20 mm in width. There is atrophy of the right supraspinatus muscle with fatty infiltration as compared to the left side. Fatty atrophy of the right infraspinatus muscle is seen as well, however, to a lesser extent. Teres minor muscle bellies are symmetric bilaterally. Left Shoulder: The biceps tendon is intact with mild medial subluxation with a portion of the tendon extending to over the lesser tuberosity. There is no tendon sheath or subdeltoid bursal effusion. The subscapular tendon is intact but there is mild thinning of the subscapularis tendon diffusely without a focal component. ??There is heterogeneity of the undersurface of the supraspinatus/infraspinatus tendons. The pattern is not typical of a partial-thickness tear and is favored to represent postsurgical change. There is no full-thickness tear The remainder of the rotator cuff is intact. ?? There is no atrophy or fatty infiltration of the left supraspinatus, infraspinatus, or teres minor muscles. ?? IMPRESSION: 1. Full-thickness tear of the right rotator cuff involving the supraspinatus, infraspinatus, and probably the inferior aspect of the subscapularis tendon. 2. Atrophy with fatty infiltration of the right supraspinatus and infraspinatus muscles. ?? Requested By: Dictated By: ?? MATIAS SALVADOR M.D. ??on Mar 14 2016 11:14A This document has been electronically signed by: JASPAL CEE M.D. on Mar 14 2016 11:28A Procedure Note Provider, MD Gerson - 07/09/2016 JASPAL CEE M.D. MATIAS SALVADOR M.D. FINAL REPORT The radiology attending physician has personally reviewed this study, and has reviewed and/or edited this written report and agrees with it. ACC# Date Time Exam [id number] Mar 14, 2016 10:06:00 [id number] Extrm Sono Shoulder R [id number] Mar 14, 2016 10:06:00 [id number] Extrm Sono Shoulder L ACC# Date Time Exam [id number] Mar 14, 2016 10:06:00 [id number] Extrm Sono Shoulder R [id number] Mar 14, 2016 10:06:00 [id number] Extrm Sono Shoulder L EXAMINATION: BILATERAL SHOULDER SONOGRAM HISTORY: 70-year-old man with left greater than right shoulder pain. According to the patient, there has been a history of surgical repair of both rotator cuffs. FINDINGS: Right Shoulder: The biceps tendon is not visualized compatible biceps tendon rupture. There is marked thinning of the inferior portion of the subscapularis tendon that is most consistent with a full-thickness tear. There is a full-thickness tear of the supraspinatus tendon that extends into the infraspinatus tendon. The tear measures approximately 33 mm in length and 20 mm in width. There is atrophy of the right supraspinatus muscle with fatty infiltration as compared to the left side. Fatty atrophy of the right infraspinatus muscle is seen as well, however, to a lesser extent. Teres minor muscle bellies are symmetric bilaterally. Left Shoulder: The biceps tendon is intact with mild medial subluxation with a portion of the tendon extending to over the lesser tuberosity. There is no tendon sheath or subdeltoid bursal effusion. The subscapular tendon is intact but there is mild thinning of the subscapularis tendon diffusely without a focal component. There is heterogeneity of the undersurface of the supraspinatus/infraspinatus tendons. The pattern is not typical of a partial-thickness tear and is favored to represent postsurgical change. There is no full-thickness tear The remainder of the rotator cuff is intact. There is no atrophy or fatty infiltration of the left supraspinatus, infraspinatus, or teres minor muscles. IMPRESSION: 1. Full-thickness tear of the right rotator cuff involving the supraspinatus, infraspinatus, and probably the inferior aspect of the subscapularis tendon. 2. Atrophy with fatty infiltration of the right supraspinatus and infraspinatus muscles. Requested By: Dictated By: MATIAS SALVADOR M.D. on Mar 14 2016 11:14A This document has been electronically signed by: JASPAL CEE M.D. on Mar 14 2016 11:28A us Historical Provider MD SHINE US PROCEDURES Final R esult documented in this encounter Visit Diagnoses Diagnosis Complete tear of right rotator cuff Muscle wasting and atrophy, not elsewhere classified, right shoulder documented in this encounter
--- OUTSIDE RECORDS SUMMARY | 2024-03-03 11:47 | XMS_ITS | Encounter Summary ---
Author Organization [facility] Healthcare Address [address] [place] [address] Care Team Providers Care Farm Labor Contractor Name Role Phone Unavailable Primary Care Provider Unavailabl e Encounter Details Date Type Department Care Team (Late st Contact Info) Description 11/05/2011 6:19 AM CDT - 11/05/2011 11:59 PM CDT Hospital Encounter [facility] Jaylon Gudino MD [address] [place] [address] Benign essential hypertension; Other and unspecified hyperlipidemia; Special screening for malignant neoplasm of prostate Social History Tobacco Use Types Packs/Day Years Used Date Smoking Tobacco: Never Assessed Sex and Gender Information Value Date Recorded Sex Assigned at Not on file Legal Sex Male 3:56 AM COMPUTED TOMOGRAPHY TECHNOLOGIST Gender Identity Not on file Sexual Orientation Not on file documented as of this encounter Plan of Treatment Not on file documented as of this encounter Visit Diagnoses Diagnosis Benign essential hypertension Essential hypertension, benign Other and unspecified hyperlipidemia Special screening for malignant neoplasm of prostate documented in this encounter
--- OUTSIDE RECORDS SUMMARY | 2024-03-03 11:47 | XMS_ITS | Encounter Summary ---
Author Organization [facility] Facility Care Team Providers Care Senior Private Client Advisor Name Role Phone Unavailable Primary Care Provider Unavailabl e Encounter Details Date Type Department Care Team (Latest Contact Info) Description 08/26/2011 6:19 AM CDT - 08/27/2011 10:00 AM CDT Hospital Encounter [facility] Hammad Martinez MD [id number] [place] [address] Occlusion and stenosis of carotid artery; Essential hypertension Social History Tobacco Use Types Packs/Day Years Used Date Smoking Tobacco: Never Assessed Sex and Gender Information Value Date Recorded Sex Assigned at Not on file Legal Sex Male 3:56 AM CORSETIER Gender Identity Not on file Sexual Orientation Not on file documented as of this encounter Last Filed Vital Signs Vital Sign Reading Time Taken Comments Blood Pressure 205/205 08/27/2011 9:00 AM CDT Pulse 58 08/27/2011 8:45 AM CDT Temperature - - Respiratory Rate - - Oxygen Saturation - - Inhaled Oxygen Concentration - - Weight - - Height - - Body Mass Index - - documented in this encounter Plan of Treatment Not on file documented as of this encounter Visit Diagnoses Diagnosis Occlusion and stenosis of carotid artery Essential hypertension Unspecified essential hypertension documented in this encounter
--- OUTSIDE RECORDS SUMMARY | 2024-03-03 11:47 | XMS_ITS | Encounter Summary ---
Author Organization [facility] Healthcare Address [address] [place] [address] Care Team Providers Care Press Secretary Name Role Phone Unavailable Primary Care Provider Unavailabl e Encounter Details Date Type Department Care Team (Late st Contact Info) Description 12/08/2011 8:33 AM CDT - 12/08/2011 11:59 PM CDT Hospital Encounter [facility] Jaylon Gudino MD [address] [place] [address] Essential hypertension; Other and unspecified hyperlipidemia Social History Tobacco Use Types Packs/Day Years Used Date Smoking Tobacco: Never Assessed Sex and Gender Information Value Date Recorded Sex Assigned at Not on file Legal Sex Male 3:56 AM REHAB THERAPIST Gender Identity Not on file Sexual Orientation Not on file documented as of this encounter Plan of Treatment Not on file documented as of this encounter Visit Diagnoses Diagnosis Essential hypertension Unspecified essential hypertension Other and unspecified hyperlipidemia documented in this encounter
--- OUTSIDE RECORDS SUMMARY | 2024-03-03 11:47 | XMS_ITS | Encounter Summary ---
Author Organization [facility] Healthcare Address [address] [place] [address] Care Team Providers Care Semiconductor Packages Tester Name Role Phone Unavailable Primary Care Provider Unavailabl e Encounter Details Date Type Department Care Team (Late st Contact Info) Description 04/26/2012 8:07 AM FINANCIAL COMPLIANCE EXAMINER - 04/26/2012 11:59 PM FINANCIAL COMPLIANCE EXAMINER Hospital Encounter [facility] Carlos Narayan MD [address] [place] [address] Benign essential hypertension; Other and unspecified hyperlipidemia Social History Tobacco Use Types Packs/Day Years Used Date Smoking Tobacco: Never Assessed Sex and Gender Information Value Date Recorded Sex Assigned at Not on file Legal Sex Male 3:56 AM FINANCIAL COMPLIANCE EXAMINER Gender Identity Not on file Sexual Orientation Not on file documented as of this encounter Plan of Treatment Not on file documented as of this encounter Procedures Procedure Name Priority Date/Time Associated Diagnosis Comments SERUM LIPID PANEL Routine 04/26/2012 8:1 8 AM FINANCIAL COMPLIANCE EXAMINER SERUM COMPREHENSIVE METABOLIC PANEL Routine 04/26/2012 8:18 AM FINANCIAL COMPLIANCE EXAMINER DISCHARGE LABORATORY CUMULATIVE REPORT Routine 04/26/2012 12:00 AM FINANCIAL COMPLIANCE EXAMINER documented in this encounter Results * Serum lipid panel (04/26/2012 8:18 AM FINANCIAL COMPLIANCE EXAMINER) Cholesterol 152 mg/dl HISTORIC AL RESULTS Comment: DESIRABLE = LESS THAN 200 MG/DL BORDERLINE HIGH = 200-239 MG/DL HIGH= GREATER THAN 239 MG/DL Triglycerides 129 mg/dl HISTOR ICAL RESULTS Comment: NORMAL = LESS THAN 150 MG/DL BORDERLINE HIGH = 150-199 MG/DL HIGH = 200-499 MG/DL VERY HIGH = GREATER THAN OR EQUAL TO 500 MG/DL HDL 63 mg/dl HISTORICAL RESULTS Comment: LOW HDL CHOLESTEROL = Less than 40 mg/dL NORMAL HDL CHOLESTEROL = 40-59 mg/dL HIGH HDL CHOLESTEROL = Greater than 59 mg/dL LDL, direct 67 mg/dl HISTORIC AL RESULTS Comment: OPTIMAL = Less than 100 mg/dl NEAR OPTIMAL/ABOVE OPTIMAL = 100-129 mg/dl BORDERLINE HIGH = 130-159 mg/dl HIGH = 160-189 mg/dl VERY HIGH = Greater than 189 mg/dl Serum 04/26/2012 8:18 AM FINANCIAL COMPLIANCE EXAMINER Carlos Gudino MD LAB BLOOD ORDERABLES Final Result HISTORICAL RESULTS * (ABNORMAL) Serum comprehensive metabolic panel (04/26/2012 8:18 AM FINANCIAL COMPLIANCE EXAMINER) BUN 19.0 6.0 - 23.0 mg/dl HISTORICAL RESULTS Sodium 140 134 - 143 mmol/L HISTORICAL RESULTS Potassium, sr 4.2 3.4 - 5.0 mmol/L HISTORICAL RESULTS Chloride 103 99 - 108 mmol/L HISTORICAL RESULTS CO2 28 23 - 32 mmol/L HISTORICAL RESULTS Glucose, fasting 121(H) 70 - 110 mg/dl HISTORICAL RESULTS Creatinine 1.42(H) 0.60 - 1.30 mg/dl HISTORICAL RESULTS Comment: eGFR:53 ml/min/1.73sq.m if non -German. eGFR:64 ml/min/1.73sq.m if -German. AVE GFR for 60-69 yr. age group: ??85 ml/min/173sq.m Calculated using MDRD Equation BUN/creat ratio 13 10 - 20 HIST ORICAL RESULTS A. gap 13 7 - 14 mmol/L HISTORICAL RESULTS Protein, sr 7.4 6.4 - 8.0 g/dl HISTORICAL RESULTS Alb 4.3 3.3 - 4.5 g/dl HISTORICAL RESULTS Alb/glob ratio 1.4 1.1 - 1.8 HISTO RICAL RESULTS Calcium 9.0 8.6 - 9.8 mg/dl HISTORICAL RESULTS Bilirubin 0.7 0.0 - 1.1 mg/dl HISTORICAL RESULTS Alk phos 61 44 - 125 Units/L HISTORICAL RESULTS AST 27 4 - 32 Units/L HISTORICAL RESULTS ALT 37 16 - 66 Units/L HISTORICAL RESULTS Serum 04/26/2012 8:18 AM FINANCIAL COMPLIANCE EXAMINER us Carlos Gudino MD LAB BLOOD ORDERABLES Final Result HISTORICAL RESULTS * Discharge Laboratory Cumulative Report (04/26/2012 12:00 AM FINANCIAL COMPLIANCE EXAMINER) 04/26/2012 Narrative HISTORICAL RESULTS - 04/28/2012 12:25 AM FINANCIAL COMPLIANCE EXAMINER Patient No: [id number] ? [facility] Patient Name: ANIYAH ALMONTE ?[facility] Age: 66 YRS ?: 1945 ?Sex:M ?[address] )[phone] ?? Adm Dt: 04/26/2012 ?[place], [place] ??[address] Created: 04/28/2012 ??0025 ?? Pt. Type: R ? Discharge Dt: 04/26/2012 ? Pathologists: Camila Worley MD Admit DrAriadne Attend Dr: CARLOS GUDINO ??K ? GENERAL CHEMISTRY ?Collection Date: ?04/26/12 ?Collection Time: ?0818 ? Ref Range: ?? Units: [134-143] ?? MMOL/L ? SODIUM ? 140 [3.4-5.0] ?? MMOL/L ? POTASSIUM ?4.2 [99.0-108.0] MMOL/L ? CHLORIDE ? 103.0 [23.0-32.0] ??MMOL/L ? TOTAL CO2 ? 27.8 ?? [7-14] ?MMOL/L ? ANION GAP ? 13 ??[70-110] ?? MG/DL ?GLUCOSE FASTING ?121 H [6.4-8.0] ?? G/DL ? TOTAL PROTEIN ?7.4 [3.3-4.5] ?? G/DL ? ALBUMIN ?4.3 [1.1-1.8] ?A/G RATIO ?1.4 [8.6-9.8] ?? MG/DL ?CALCIUM ?9.0 [0.0-1.1] ?? MG/DL ?BILI TOTAL ? 0.7 ??[44-125] ?? U/L ?ALK PHOS ?61 ?? [4-32] ?U/L ?AST(SGOT) ? 27 ??[16-66] ?U/L ?ALT(SGPT) ? 37 [6.0-23.0] ??MG/DL ?BUN ? 19.0 ??[10-20] ? B/C RATIO ? 13 [0.60-1.30] ??MG/DL ?CREATININE ?1.42 Hf ?04/26/12 0818 eGFR:53 ml/min/1.73sq.m if non -German. eGFR:64 ml/min/1.73sq.m if -German. AVE GFR for 60-69 yr. age group: ??85 ml/min/173sq.m Calculated using MDRD Equation FOOTNOTE ADDED ON ?? 04/26/12 ?? AT 0951 BY 999 Footnotes and Symbols: H = High, f = Footnote ?? CONTINUED ?Page: ?? 1 Patient No: [id number] ? [facility] Patient Name: ANIYAH ALMONTE ?[facility] Age: 66 YRS ?: 1945 ?Sex:M ?[address] )[phone] ?? Adm Dt: 04/26/2012 ?[place], [place] ??[address] Created: 04/28/2012 ??0025 ?? Pt. Type: R ? Discharge Dt: 04/26/2012 ? Pathologists: Camila Worley MD Admit DrAriadne Attend Dr: CARLOS GUDINO ??K ?LIPIDS ?Collection Date: ?04/26/12 ?Collection Time: ?0818 ? Ref Range: ?? Units: ? MG/DL ?LDL DIRECT ?67 f ? MG/DL ?CHOLESTEROL ?152 f ? MG/DL ?HDL CHOLESTEROL ? 63 f ? MG/DL ?TRIGLYCERIDES ?129 f Footnotes and Symbols: f = Footnote LDL DIRECT (03/14/10 -- Current) OPTIMAL = Less than 100 mg/dl NEAR OPTIMAL/ABOVE OPTIMAL = 100-129 mg/dl BORDERLINE HIGH = 130-159 mg/dl HIGH = 160-189 mg/dl VERY HIGH = Greater than 189 mg/dl CHOLESTEROL (03/14/10 -- Current) DESIRABLE = LESS THAN 200 MG/DL BORDERLINE HIGH = 200-239 MG/DL HIGH= GREATER THAN 239 MG/DL HDL CHOLESTEROL (03/14/10 -- Current) LOW HDL CHOLESTEROL = Less than 40 mg/dL NORMAL HDL CHOLESTEROL = 40-59 mg/dL HIGH HDL CHOLESTEROL = Greater than 59 mg/dL TRIGLYCERIDES (05/08/06 -- Current) NORMAL = LESS THAN 150 MG/DL BORDERLINE HIGH = 150-199 MG/DL HIGH = 200-499 MG/DL VERY HIGH = GREATER THAN OR EQUAL TO 500 MG/DL ?? END OF CHART ? Page: ?? 2 us Historical Provider LAB BLOOD ORDERABLES Isela jackson Result HISTORICAL RESULTS documented in this encounter Visit Diagnoses Diagnosis Benign essential hypertension Essential hypertension, benign Other and unspecified hyperlipidemia documented in this encounter
--- OUTSIDE RECORDS SUMMARY | 2024-03-03 11:47 | XMS_ITS | Encounter Summary ---
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
--- OUTSIDE RECORDS SUMMARY | 2024-03-03 11:47 | XMS_ITS | Encounter Summary ---
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, stage 1-4; Chronic kidney disease; Other abnormal glucose Social History Tobacco Use Types Packs/Day Years Used Date Smoking Tobacco: Never Assessed Sex and Gender Information Value Date Recorded Sex Assigned at Not on file Legal Sex Male 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 Gender Identity Not on file Sexual Orientation Not on file documented as of this encounter Plan of Treatment Not on file documented as of this encounter Procedures Procedure Name Priority Date/Time Associated Diagnosis Comments SERUM BASIC METABOLIC PANEL Routine 07/27/2012 9:45 AM CDT BLOOD GLYCATED HEMOGLOBIN Routine 07/27/2012 4:45 AM CDT DISCHARGE LABORATORY CUMULATIVE REPORT Routine 07/27/2012 12:00 AM CDT documented in this encounter Results * (ABNORMAL) Serum basic metabolic panel (07/27/2012 9:45 AM CDT) BUN 25.0(H) 6.0 - 23.0 mg/dl HISTORICAL RESULTS Sodium 140 134 - 143 mmol/L HISTORICAL RESULTS Potassium, sr 4.3 3.4 - 5.0 mmol/L HISTORICAL RESULTS Chloride 106 99 - 108 mmol/L HISTORICAL RESULTS CO2 26 23 - 32 mmol/L HISTORICAL RESULTS Glucose, fasting 111(H) 70 - 110 mg/dl HISTORICAL RESULTS Creatinine 1.32(H) 0.60 - 1.30 mg/dl HISTORICAL RESULTS Comment: eGFR:57 ml/min/1.73sq.m if non -Citizen Of [place]. eGFR:69 ml/min/1.73sq.m if -Citizen Of [place]. AVE GFR for 60-69 yr. age group: ??85 ml/min/173sq.m Calculated using MDRD Equation BUN/creat ratio 19 10 - 20 HIST ORICAL RESULTS A. gap 12 7 - 14 mmol/L HISTORICAL RESULTS Osmo, calc 284 280 - 301 mOsm/kg HISTORICAL RESULTS Calcium 9.0 8.6 - 9.8 mg/dl HISTORICAL RESULTS Serum 07/27/2012 9:45 AM CDT Carlos Gudino MD LAB BLOOD ORDERABLES Final Result HISTORICAL RESULTS * (ABNORMAL) Blood glycated hemoglobin (07/27/2012 4:45 AM CDT) Glycated hemoglobin 6.3(H) 4.2 - 5.9 % HISTORICAL RESULTS Blood specimen (specimen) 07/27/2012 4:45 AM CDT Narrative HISTORICAL RESULTS - 07/27/2012 6:17 AM CDT Estimated average Glucose A1C(%) ?? mg/dl ? A1C(%) ?? mg/dl ?? 5.0 ?97 ?9.0 ?212 ?? 5.5 ? 111 ?9.5 ?226 ?? 6.0 ? 126 ? 10.0 ?240 ?? 6.5 ? 140 ? 10.5 ?255 ?? 7.0 ? 154 ? 11.0 ?269 ?? 7.5 ? 169 ? 11.5 ?283 ?? 8.0 ? 183 ? 12.0 ?298 ?? 8.5 ? 197 95% Confidence levels are +/- 20% The ADA recommends reporting an estimated Average Glucose (eAG) with all hemoglobin A1C results using the equation derived from a study of 507 normal adults and diabetic adults (in stable control). Minority populations were underrepresented. Children and women were not included. (Diabetes Care 2008; 31:1478-2486) us Carlos Gudino MD LAB BLOOD ORDERABLES Final Result HISTORICAL RESULTS * Discharge Laboratory Cumulative Report (07/27/2012 12:00 AM CDT) 07/27/2012 Narrative HISTORICAL RESULTS - 07/29/2012 12:24 AM CDT Patient No: [id number] ? [facility] Patient Name: ANIYAH RAMIREZ ?[facility] Age: 66 YRS ?: 1945 ?Sex:M ?[address] ?? Adm Dt: 07/27/2012 ?[place] ??[address] Created: 07/29/2012 ??0024 ?? Pt. Type: R ? Discharge Dt: 07/27/2012 ? Pathologists: Camila Worley MD Admit DrAriadne Attend Dr: CARLOS GUDINO ??K ?SPECIAL HEMATOLOGY ?Collection Date: ?07/27/12 ?Collection Time: ?0945 ? Ref Range: ?? Units: [4.2-5.9] ?? % ?HEMOGLOBIN A1C ? 6.3 Hf Footnotes and Symbols: H = High, f = Footnote HEMOGLOBIN A1C (10/16/10 -- Current) Estimated average Glucose A1C(%) ?? mg/dl ? A1C(%) ?? mg/dl ?? 5.0 ?97 ?9.0 ?212 ?? 5.5 ? 111 ?9.5 ?226 ?? 6.0 ? 126 ? 10.0 ?240 ?? 6.5 ? 140 ? 10.5 ?255 ?? 7.0 ? 154 ? 11.0 ?269 ?? 7.5 ? 169 ? 11.5 ?283 ?? 8.0 ? 183 ? 12.0 ?298 ?? 8.5 ? 197 95% Confidence levels are +/- 20% The ADA recommends reporting an estimated Average Glucose (eAG) with all hemoglobin A1C results using the equation derived from a study of 507 normal adults and diabetic adults (in stable control). Minority populations were underrepresented. Children and women were not included. (Diabetes Care 2008; 31:4827-1202) ?? CONTINUED ?Page: ?? 1 Patient No: [id number] ? [facility] Patient Name: ANIYAH RAMIREZ ?[facility] Age: 66 YRS ?: 1945 ?Sex:M ?[address] )[phone] ?? Adm Dt: 07/27/2012 ?[place] ??[address] Created: 07/29/2012 ??0024 ?? Pt. Type: R ? Discharge Dt: 07/27/2012 ? Pathologists: Camila Worley MD Admit Attend Dr: CARLOS GUDINO ??K ? GENERAL CHEMISTRY ?Collection Date: ?07/27/12 ?Collection Time: ?0945 ? Ref Range: ?? Units: [134-143] ?? MMOL/L ? SODIUM ? 140 [3.4-5.0] ?? MMOL/L ? POTASSIUM ?4.3 [99.0-108.0] MMOL/L ? CHLORIDE ? 106.0 [23.0-32.0] ??MMOL/L ? TOTAL CO2 ? 26.4 ?? [7-14] ?MMOL/L ? ANION GAP ? 12 ??[70-110] ?? MG/DL ?GLUCOSE FASTING ?111 H [280-301] ?? MOSM/K ? CALCULATED OSMO ?284 [8.6-9.8] ?? MG/DL ?CALCIUM ?9.0 [6.0-23.0] ??MG/DL ?BUN ? 25.0 H ??[10-20] ? B/C RATIO ? 19 [0.60-1.30] ??MG/DL ?CREATININE ?1.32 Hf ?07/27/12 0945 eGFR:57 ml/min/1.73sq.m if non -Citizen Of [place]. eGFR:69 ml/min/1.73sq.m if -Citizen Of [place]. AVE GFR for 60-69 yr. age group: ??85 ml/min/173sq.m Calculated using MDRD Equation FOOTNOTE ADDED ON ?? 07/27/12 ?? AT 1122 BY 999 Footnotes and Symbols: H = High, f = Footnote ?? END OF CHART ? Page: ?? 2 us Historical Provider LAB BLOOD ORDERABLES Isela l Result HISTORICAL RESULTS documented in this encounter Visit Diagnoses Diagnosis Hypertensive kidney disease with chronic kidney disease, stage 1-4 Chronic kidney disease Chronic kidney disease, unspecified Other abnormal glucose documented in this encounter
--- OUTSIDE RECORDS SUMMARY | 2024-03-03 11:48 | XMS_ITS | Encounter Summary ---
Author Organization [facility] Healthcare Address [address] [place] [address] Care Team Providers Care Nanotechnologist Name Role Phone Unavailable Primary Care Provider Unavailabl e Encounter Details Date Type Department Care Team (Late st Contact Info) Description 11/19/2009 11:36 AM CDT - 11/19/2009 11:59 PM CDT Hospital Encounter [facility] Sriram Tuttle Social History Tobacco Use Types Packs/Day Years Used Date Smoking Tobacco: Never Assessed Sex and Gender Information Value Date Recorded Sex Assigned at Not on file Legal Sex Male 3:56 AM ICU CLERK Gender Identity Not on file Sexual Orientation Not on file documented as of this encounter Plan of Treatment Not on file documented as of this encounter Visit Diagnoses Not on filedocumented in this encounter
--- OUTSIDE RECORDS SUMMARY | 2024-03-03 11:48 | XMS_ITS | Encounter Summary ---
Author Organization [facility] Healthcare Address [address] [place] [address] Care Team Providers Care Supervisor Reclamation Name Role Phone Unavailable Primary Care Provider Unavailabl e Encounter Details Date Type Department Care Team (Late st Contact Info) Description 01/04/2010 8:30 AM CDT - 01/04/2010 11:59 PM CDT Hospital Encounter [facility] Jaylon Gudino MD [address] [place] [address] Essential hypertension; Other and unspecified hyperlipidemia Social History Tobacco Use Types Packs/Day Years Used Date Smoking Tobacco: Never Assessed Sex and Gender Information Value Date Recorded Sex Assigned at Not on file 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
--- OUTSIDE RECORDS SUMMARY | 2024-03-03 11:48 | XMS_ITS | Encounter Summary ---
Author Organization [facility] Healthcare Address [address] [place] [address] Care Team Providers Care Vice President Of Marketing Name Role Phone Unavailable Primary Care Provider Unavailabl e Encounter Details Date Type Department Care Team (Late st Contact Info) Description 11/04/2010 9:49 AM CDT - 11/04/2010 11:59 PM CDT Hospital Encounter [facility] Jaylon Gudino MD [address] [place] [address] Routine general medical examination at a health care facility; Special screening for malignant neoplasm of prostate; Other and unspecified hyperlipidemia; Benign essential hypertension Social History Tobacco Use Types Packs/Day Years Used Date Smoking Tobacco: Never Assessed Sex and Gender Information Value Date Recorded Sex Assigned at Not on file 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
--- OUTSIDE RECORDS SUMMARY | 2024-03-03 11:48 | XMS_ITS | Encounter Summary ---
Author Organization [facility] Healthcare Address [address] [place] [address] Care Team Providers Care Superintendent Custodian Janitor Name Role Phone Unavailable Primary Care Provider Unavailabl e Encounter Details Date Type Department Care Team (Late st Contact Info) Description 04/28/2011 8:35 AM TEA TASTER - 04/28/2011 11:59 PM TEA TASTER Hospital Encounter [facility] Jaylon Narayan MD [address] [place] [address] Essential hypertension; Other and unspecified hyperlipidemia; Special screening for malignant neoplasm of prostate Social History Tobacco Use Types Packs/Day Years Used Date Smoking Tobacco: Never Assessed Sex and Gender Information Value Date Recorded Sex Assigned at Not on file Legal Sex Male 3:56 AM TEA TASTER Gender Identity Not on file Sexual Orientation Not on file documented as of this encounter Plan of Treatment Not on file documented as of this encounter Visit Diagnoses Diagnosis Essential hypertension Unspecified essential hypertension Other and unspecified hyperlipidemia Special screening for malignant neoplasm of prostate documented in this encounter
--- OUTSIDE RECORDS SUMMARY | 2024-03-03 11:48 | XMS_ITS | Encounter Summary ---
Author Organization [facility] Facility Care Team Providers Care Inside Sales Professional Name Role Phone Unavailable Primary Care Provider Unavailabl e Encounter Details Date Type Department Care Team (Latest Contact Info) Description 08/22/2011 7:16 AM CDT Hospital Encounter [facility] Hammad Martinez MD [id number] [place] [address] Other specified pre-operative examination; Occlusion and stenosis of carotid artery; Essential hypertension; Other and unspecified hyperlipidemia; Esophageal reflux; Personal history of transient ischemic attack (TIA) and cerebral infarction without residual deficit; Other specified cardiac dysrhythmias Social History Tobacco Use Types Packs/Day Years Used Date Smoking Tobacco: Never Assessed Sex and Gender Information Value Date Recorded Sex Assigned at Not on file 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
--- OUTSIDE RECORDS SUMMARY | 2024-03-03 11:48 | XMS_ITS | Encounter Summary ---
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
--- OUTSIDE RECORDS SUMMARY | 2024-03-03 11:48 | XMS_ITS | Encounter Summary ---
Author Organization [facility] Healthcare Address [address] [place] [address] Care Team Providers Care Inserter Promotional Item Name Role Phone Unavailable Primary Care Provider Unavailabl e Encounter Details Date Type Department Care Team (Latest Contact Info) Description 11/18/2009 12:45 PM CDT - 11/19/2009 6:40 PM CDT Hospital Encounter [facility] Sriram Tuttle Transient cerebral ischemia; Esophageal reflux; Essential hypertension; Other speech disturbance; Disturbance of skin sensation; Other and unspecified hyperlipidemia; Tobacco use disorder; Personal history of noncompliance with medical treatment, presenting hazards to health Social History Tobacco Use Types Packs/Day Years Used Date Smoking Tobacco: Never Assessed Sex and Gender Information Value Date Recorded Sex Assigned at Not on file 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 Sex Male 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
--- OUTSIDE RECORDS SUMMARY | 2024-03-03 11:48 | XMS_ITS | Encounter Summary ---
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
--- OUTSIDE RECORDS SUMMARY | 2024-03-03 11:48 | XMS_ITS | Encounter Summary ---
Author Organization [facility] Healthcare Address [address] [place] [address] Care Team Providers Care Medical Collector Name Role Phone Unavailable Primary Care Provider Unavailabl e Encounter Details Date Type Department Care Team (Late st Contact Info) Description 04/28/2011 2:47 PM SHOE CEMENTER - 04/28/2011 11:59 PM SHOE CEMENTER Hospital Encounter [facility] Armond Murrell Special screening examination for other specified viral diseases; Other viral disease contact; Other problems related to lifestyle Social History Tobacco Use Types Packs/Day Years Used Date Smoking Tobacco: Never Assessed Sex and Gender Information Value Date Recorded Sex Assigned at Not on file Legal Sex Male 3:56 AM SHOE CEMENTER Gender Identity Not on file Sexual Orientation Not on file documented as of this encounter Plan of Treatment Not on file documented as of this encounter Visit Diagnoses Diagnosis Special screening examination for other specified viral diseases Other viral disease contact Other problems related to lifestyle documented in this encounter
--- OUTSIDE RECORDS SUMMARY | 2024-03-03 12:41 | XMS_ITS | Referral Summary ---
Author Organization [facility] Address [address] [place] [address] Care Team Providers Care Galley Boy Name Role Phone Unavailable Primary Care Provider Unavailabl e Source Comments [facility],non-owned Affiliates and Associated Physician Practices is amultiple site organization consisting of ambulatory clinics and hospital sitesin [place], [place], [place] and [place]. This disclosure is being madepursuant to the Care Everywhere program and may not contain all information available regarding this patient. Last updated 17.[facility] [employer] Social History Tobacco Use Types Packs/Day Years Used Date Smoking Tobacco: Never Assessed Sex and Gender Information Value Date Recorded Sex Assigned at Not on file Gender Identity Not on file Sexual Orientation Not on file Plan of Treatment Not on file
--- OUTSIDE RECORDS SUMMARY | 2024-03-03 12:41 | XMS_ITS | Clinical Summary ---
Author Organization [facility] [employer] Address [address] [place] [address] Care Team Providers Care Estimate Clerk Name Role Phone Unavailable Primary Care Provider Unavailabl e Source Comments [facility] [employer],non-owned Affiliates and Associated Physician Practices is amultiple site organization consisting of ambulatory clinics and hospital sitesin [place], [place], [place] and [place]. This disclosure is being madepursuant to the Care Everywhere program and may not contain all information available regarding this patient. Last updated 17.[facility] [employer] Social History Tobacco Use Types Packs/Day Years [...]
--- OUTSIDE RECORDS SUMMARY | 2024-03-03 12:42 | XMS_ITS | Encounter Summary ---
Author Organization [employer] Care Team Providers Care Sales And Support Center Agent Name Role Phone Jaylon Gudino MD Primary Care Provider [phone]- [phone] Encounter Details Date Type Department Care Team (Latest Contact Info) Description 04/20/2023 Travel Social History Tobacco Use Types Packs/Day Years Used Date Smoking Tobacco: Former Cigarettes 1 10 Passive Smoke Exposure: Past Smokeless Tobacco: Never Alcohol Use Standard Drinks/Week Comments No 0 (1 standard drink = 0.6 oz pur e alcohol) [facility] Utilities Answer Date Recorded In the [...] and Family Not on file 04/20/2023 Attends Scientologist Services Not on file 04/20 Active Member [...] Score - Questions 1-9 0 04/[address] [facility] of Occupat ional Health - Occupational Stress [...] of Assessment Author Never 04/20/2023 9:28 AM HUMIDIFIER ATTENDANT Pauline, [facility] Kasey Cervantes * Question [...] st Contact Info) Description 04/25/2024 9:30 AM HUMIDIFIER ATTENDANT [facility] [address] [place] [address] Jaylon Gudino MD [address] [place] [address] documented as of this encounter Visit Diagnoses Not on filedocumented in this encounter Additional Health Concerns Assessment Noted Time PHQ-9 Depression Total Score: 0 04/20/19 24 9:50 AM HUMIDIFIER ATTENDANT documented as of this encounter Care Teams Sales And Support Center Agent Relationship Specialty Start Date End Date Jaylon Gudino MD [address] [place] [address] PCP - General Internal Medicine 01/16/16 documented as of this encounter
--- OUTSIDE RECORDS SUMMARY | 2024-03-03 12:42 | XMS_ITS | Encounter Summary ---
Author Organization [employer] Care Team Providers Care Plastics Process Hand Name Role Phone Jaylon Gudino MD Primary Care Provider [phone]- [phone] Encounter Details Date Type Department Care Team (Latest Contact Info) Description 10/19/2023 Travel Social History Tobacco Use Types Packs/Day Years Used Date Smoking Tobacco: Former Cigarettes 1 10 Passive Smoke Exposure: Past Smokeless Tobacco: Never Alcohol Use Standard Drinks/Week Comments No 0 (1 standard drink = 0.6 oz pur e alcohol) [facility] Utilities Answer Date Recorded In the [...] and Family Not on file 04/20/2023 Attends Denominational Services Not on file 04/20 Active Member [...] Total Score - Questions 1-9 0 04/02 [facility] of Occupat ional Health - Occupational Stress [...] st Contact Info) Description 04/25/2024 9:30 AM CRUSHER OPERATOR Office Visit [facility] - [facility] - [place] [address] [place] [address] Jaylon Gudino MD [address] [place] [address] documented as of this encounter Visit Diagnoses Not on filedocumented in this encounter Additional Health Concerns Assessment Noted Time PHQ-9 Depression Total Score: 0 04/20/19 24 9:50 AM CRUSHER OPERATOR documented as of this encounter Care Teams Plastics Process Hand Relationship Specialty Start Date End Date Jaylon Gudino MD [address] [place] [address] PCP - General Internal Medicine 01/16/16 documented as of this encounter
--- OUTSIDE RECORDS SUMMARY | 2024-03-03 12:42 | XMS_ITS | Encounter Summary ---
Author Organization [employer] Care Team Providers Care Tile Ditcher Name Role Phone Jaylon Gudino MD Primary Care Provider [phone]- [phone] Encounter Details Date Type Department Care Team (Latest Contact Info) Description 01/18/2024 Travel Social History Tobacco Use Types Packs/Day Years Used Date Smoking Tobacco: Former Cigarettes 1 10 Passive Smoke Exposure: Past Smokeless Tobacco: Never Alcohol Use Standard Drinks/Week Comments No 0 (1 standard drink = 0.6 oz pur e alcohol) [facility] Utilities Answer Date Recorded In the past [...] and Family Not on file 04/20/2023 Attends Sikh Services Not on file 04/20 Active Member [...] Total Score - Questions 1-9 0 04/02 [facility] of Occupat ional Health - [...] st Contact Info) Description 04/25/2024 9:30 AM MANAGER LEASING Office Visit [facility] - [place] [address] [place] [address] Jaylon Gudino MD [address] [place] [address] documented as of this encounter Visit Diagnoses Not on filedocumented in this encounter Additional Health Concerns Assessment Noted Time PHQ-9 Depression Total Score: 0 04/20/19 24 9:50 AM MANAGER LEASING documented as of this encounter Care Teams Tile Ditcher Relationship Specialty Start Date End Date Jaylon Gudino MD [address] [place] [address] PCP - General Internal Medicine 01/16/16 documented as of this encounter
--- OUTSIDE RECORDS SUMMARY | 2024-03-03 12:42 | XMS_ITS | Encounter Summary ---
Author Organization [facility] Address [address] [place] [address] Phone Care Team Providers Care Electronic Specialist Name Role Phone Jaylon Gudino MD Primary Care Provider [phone] Reason for Referral * Radiology Services (Routine) - Closed Specialty Diagnoses / Procedures Referred By Lilly kraft Referred To Contact Radiology Diagnoses Elevated liver enzymes Procedures US ABDOMEN LIMITED LEVEL 3 THREE ORGAN Jaylon Gudino MD [address] [place] [address] Phone: tel: fax: Referral ID Status Reason Start Date Expiration Date Visits Re quested Visits Authorized [id number] Closed 01/19/2024 1 1 S ROLLING MACHINE OPERATOR Reason for Visit * Radiology Services (Routine) - Closed Specialty Diagnoses / Procedures Referred By Lilly kraft Referred To Contact Radiology Diagnoses Elevated liver enzymes Procedures US ABDOMEN LIMITED LEVEL 3 THREE ORGAN Jaylon Gudino MD [address] [place] [address] Phone: tel: fax: Referral ID Status Reason Start Date Expiration Date Visits Re quested Visits Authorized [id number] Closed 01/19/2024 1 1 Encounter Details Date Type Department Care Team (Late st Contact Info) Description 01/21/2024 7:09 AM GLASS ROLLING MACHINE OPERATOR - 01/21/2024 11:59 PM GLASS ROLLING MACHINE OPERATOR Hospital En[facility] [address] [place] [address] Jaylon Gudino MD [address] [place] [address] Discharge Disposition: Discharged to home or Selfcare Social History Tobacco Use Types Packs/Day Years Used Date Smoking Tobacco: Former Cigarettes 1 10 Passive Smoke Exposure: Past Smokeless Tobacco: Never Alcohol Use Standard Drinks/Week Comments No 0 (1 standard drink = 0.6 oz pur e alcohol) [facility] Utilities Answer Date Recorded In the [...] and Family Not on file 04/20/2023 Attends Anabaptist Services Not on file 04/20 Active Member [...] Total Score - Questions 1-9 0 04/02 [facility] of Occupat ional Health - Occupational Stress [...] st Contact Info) Description 04/25/2024 9:30 AM GLASS ROLLING MACHINE OPERATOR Office Visit [facility] - [facility] - [place] [address] [place] [address] Jaylon Gudino MD [address] [place] [address] documented as of this encounter Procedures Procedure Name Priority Date/Time Associated Diagnosis Comments US ABDOMEN LIMITED LEVEL 3 THREE ORGAN Routine 01/21/2024 7:26 AM GLASS ROLLING MACHINE OPERATOR Elevated liver enzymes documented in this encounter Results * US ABDOMEN LIMITED LEVEL 3 THREE ORGAN (01/21/2024 7:26 AM GLASS ROLLING MACHINE OPERATOR) Anatomical Region Laterality Modality Abdomen N/A Ultrasound 01/25/2024 4:16 PM GLASS ROLLING MACHINE OPERATOR Impressions 01/25/2024 4:18 PM GLASS ROLLING MACHINE OPERATOR IMPRESSION: Mild hepatic steatosis. Gallbladder sludge. No cholelithiasis or sonographic evidence of cholecystitis. Narrative 01/25/2024 4:18 PM GLASS ROLLING MACHINE OPERATOR EXAM DESCRIPTION: ?? US ABDOMEN LIMITED LEVEL [...] PM T: ??01/25/2024 4:16 PM Report ID: [id number] Reading Location: ??[id number] Procedure Note Destiney Aldrich MD - 01/25/2024 [...] by Destiney Aldrich M.D. TW: Report ID: [id number] Reading Location: [id number] IMPRESSION: Mild hepatic steatosis. Gallbladder sludge. No cholelithiasis or sonographic evidence of cholecystitis. Jaylon Gudino MD [facility] ORDERABLES Final Res ult documented in this encounter Visit Diagnoses Diagnosis Elevated liver enzymes Nonspecific elevation of levels of transaminase or lactic acid dehydrogenase (LDH) documented in this encounter Additional Health Concerns Assessment Noted Time PHQ-9 Depression Total Score: 0 04/20/19 24 9:50 AM GLASS ROLLING MACHINE OPERATOR documented as of this encounter Care Teams Electronic Specialist Relationship Specialty Start Date End Date Jaylon Gudino MD [address] [place] [address] PCP - General Internal Medicine 01/16/16 documented as of this encounter
--- OUTSIDE RECORDS SUMMARY | 2024-03-03 12:42 | XMS_ITS | Encounter Summary ---
Author Organization [facility] Address [address] [place] [address] Phone Care Team Providers Care Cloth Reeler Name Role Phone Jaylon Gudino MD Primary Care Provider [phone] Reason for Visit * Reason Comments Hypertension Constant fatigue, we nt to urgent care a month ago was given antibiotics for a virus and still has lung irritation from it Encounter Details Date Type Department Care Team (Late st Contact Info) Description 10/19/2023 9:45 AM CDT Office Visit [facility] - Internal Medicine - [place] [address] [place] [address] Jaylon Gudino MD [address] [facility] [place] [address] Essential hypertension, benign (Primary Dx); [...] drink = 0.6 oz pur e alcohol) [facility] Utilities Answer Date Recorded In the past 12 months has [employer] electric, gas, oil, or water company threatened [...] and Family Not on file 04/20/2023 Attends Church Services Not on file 04/20 Active Member [...] Total Score - Questions 1-9 0 04/02 [facility] of Occupat ional Health - Occupational [...] Patient not taking: Reported on 10/19/2023 04/25/21 Jaylon Gudino MD levothyroxine (SYNTHROID) 25 MCG [...] GROUP - INTERNAL MEDICINE [address] [place] [address] PHONE: [phone] FAX: [phone] 10/19/2023 NAME: Bacilio Ramirez, : 1945, Assessment [...] st Contact Info) Description 04/25/2024 9:30 AM PROCESS CONTROLLER Office Visit [facility] - Internal Medicine - [place] [address] [place] [address] Jaylon Gudino MD [address] [place] [address] documented as of this encounter Procedures Procedure [...] - 12.00 10(3)/mcL 10/19/2023 4:08 PM CDT [facility] RBC 4.08(L) 4.40 - 5.80 10(6)/mcL 10/19/2023 4:08 PM CDT [facility] HEMOGLOBIN (HGB) 12.3(L) 13.0 - 16.5 g/dL 10/19/2023 4:08 PM CDT [facility] HEMATOCRIT (HCT) 37.1(L) 38.0 - 50.0 % 10/19/2023 4:08 PM CDT [facility] MCV 90.9 82.0 - 96.0 fL 10/19/2023 4:08 PM CDT [facility] MCH 30.1 26.0 - 32.0 pg 10/19/2023 4:08 PM CDT [facility] MCHC 33.2 31.0 - 36.0 g/dL 10/19/2023 4:08 PM CDT [facility] PLATELET COUNT 218 140 - 440 10(3)/mcL 10/19/2023 4:08 PM CDT [facility] RDW 12.9 11.8 - 15.5 % 10/19/2023 4:08 PM CDT [facility] MPV 10.9 8.0 - 12.6 fL 10/19/2023 4:08 PM CDT [facility] NEUTROPHILS 67.0 40.0 - 68.0 % 10/19/2023 4:08 PM CDT [facility] LYMPHOCYTES 19.8 19.0 - 49.0 % 10/19/2023 4:08 PM CDT [facility] MONOCYTES 10.8 3.0 - 13.0 % 10/19/2023 4:08 PM CDT [facility] EOSINOPHILS 1.9 0.0 - 8.0 % 10/19/2023 4:08 PM CDT [facility] BASOPHILS 0.5 0.0 - 1.0 % 10/19/2023 4:08 PM CDT [facility] ABSOLUTE NEUTROPHILS 4.22 1.40 - 5.30 10(3)/[facility] 10/19/2023 4:08 PM CDT [facility] ABSOLUTE LYMPHOCYTES 1.25 0.90 - 3.30 10(3)/[facility] 10/19/2023 4:08 PM CDT [facility] ABSOLUTE MONOCYTES 0.68 0.10 - 0.90 10(3)/[facility] 10/19/2023 4:08 PM CDT [facility] ABSOLUTE EOSINOPHIL 0.12 0.00 - 0.50 10(3)/[facility] 10/19/2023 4:08 PM CDT [facility] ABSOLUTE BASOPHILS 0.03 0.00 - 0.10 10(3)/[facility] 10/19/2023 4:08 PM CDT [facility] NRBC PER 100 WBC 0 10/19/19 4:08 PM CDT [facility] Blood Venipuncture / Unknown 10/19/2023 10:15 AM CDT 10/19/2023 10:15 AM CDT us Jaylon Gudino MD HEMATOLOGY ORDERABLES Final Result [facility] [address] [place] [address] * (ABNORMAL) HEMOGLOBIN A1C W/ ESTIMATED GLUCOSE (10/19/2023 10:15 AM CDT) HGB-A1C 6.2(H) 4.0 - 6.0 % 10/19/2023 3:37 PM CDT [facility] Est Average Glucose 131.2 mg/dL 10/19/2023 3:37 PM CDT [facility] Blood Venipuncture / Unknown 10/19/2023 10:15 AM CDT 10/19/2023 10:15 AM CDT Narrative [facility] - 10/19/2023 3:37 PM CDT HEMOGLOBIN A1C: DIABETIC PATIENTS: WELL-CONTROLLED: ?? 6.2 - 7.0 INTERMEDIATE WELL-CONTROLLED: ??7.0 - 9.0 POORLY-CONTROLLED: ??>9.0 us Jaylon Gudino MD CHEMISTRY ORDERABLES Final Result Performing Organization Address [facility] Co de Phone Number [facility] [address] [place] [address] * MAGNESIUM (MG) (10/19/2023 10:15 AM CDT) MAGNESIUM 2.2 1.6 - 2.6 mg/dL 10/19/2023 3:49 PM CDT [facility] Blood Venipuncture / Unknown 10/19/2023 10:15 AM CDT 10/19/2023 10:15 AM CDT Jaylon Gudino MD CHEMISTRY ORDERABLES Final Result Performing Organization Address [facility] Co de Phone Number [facility] [address] [place] [address] * PSA SCREEN (10/19/2023 10:15 AM CDT) PSA SCREEN, TOTAL 1.00 <4.00 ng/mL 10/19/2023 4:00 PM CDT [facility] Blood Venipuncture / Unknown 10/19/2023 10:15 AM CDT 10/19/2023 10:15 AM CDT Narrative [facility] - 10/19/2023 4:00 PM CDT The ALINITY Total PSA assay is a Chemiluminescent Microparticle Immunoassay (CMIA) for the quantitative determination of total PSA (both free PSA and PSA complexed to [id number]) in human serum. Total PSA values obtained with different assay methods, including Gillette PSA assays, cannot be used interchangeably. us Jaylon Gudino MD CHEMISTRY ORDERABLES Final Result Performing Organization Address City/[facility]/ZIP Co de Phone Number [facility] [address] [place] [address] * THYROID STIMULATING HORMONE (TSH) (10/19/2023 10:15 AM CDT) Pathologist [facility] TSH 3.805 0.300 - 5.000 mIU/L 10/19/2023 4:03 PM CDT [facility] Blood Venipuncture / Unknown 10/19/2023 10:15 AM CDT 10/19/2023 10:15 AM CDT Jaylon Gudino MD CHEMISTRY ORDERABLES Final Result Performing Organization Address [facility] Co de Phone Number [facility] [address] [place] [address] * THYROXINE (T4) FREE (10/19/2023 10:15 AM CDT) [facility] T4 FREE 0.8 0.7 - 1.9 ng/dL 10/19/2023 4:03 PM CDT [facility] Blood Venipuncture / Unknown 10/19/2023 10:15 AM CDT 10/19/2023 10:15 AM CDT Jaylon uGdino MD CHEMISTRY ORDERABLES Final Result Performing Organization Address City/[facility]/ZIP Co de Phone Number [facility] [address] [place] [address] * (ABNORMAL) LIPID PANEL (10/19/2023 10:15 AM CDT) Pathologist [facility] CHOLESTEROL 175 <200 mg/dL 10/19/2023 3:49 PM CDT [facility] TRIGLYCERIDES 161(H) <150 mg/dL 10/19/2023 3:49 PM CDT [facility] HDL CHOLESTEROL 64 >40 mg/dL 3:49 PM CDT [facility] LDL 79 <130 mg/dL 10/19/2023 3:49 PM CDT [facility] VLDL 32 10 - 50 mg/dL 10/19/2023 3:49 PM CDT [facility] CHOL/HDL RATIO 2.7 0.0 - 4.4 10/19/2023 3:49 PM CDT [facility] NON-HDL CHOLESTEROL 111 <130 mg/dL 10/19/2023 3:49 PM CDT [facility] Blood Venipuncture / Unknown 10/19/2023 10:15 AM CDT 10/19/2023 10:15 AM CDT us Jaylon Gudino MD CHEMISTRY ORDERABLES Final Result [facility] [address] [place] [address] * (ABNORMAL) CMP (COMPREHENSIVE METABOLIC PANEL) (10/19/2023 10:15 AM CDT) SODIUM 142 136 - 145 mmol/L 10/19/2023 3:49 PM CDT [facility] POTASSIUM 4.3 3.5 - 5.1 mmol/L 10/19/2023 3:49 PM CDT [facility] CHLORIDE 109(H) 98 - 107 mmol/L 10/19/2023 3:49 PM CDT [facility] CO2, VENOUS 25 22 - 30 mmol/L 10/19/2023 3:49 PM CDT [facility] ANION GAP 12.3 <18.0 mmol/L 10/19/2023 3:49 PM CDT [facility] GLUCOSE 112(H) 70 - 99 mg/dL 10/19/2023 3:49 PM CDT [facility] BUN 21 8 - 26 mg/dL 10/19/2023 3:49 PM CDT [facility] CREATININE, BLOOD 1.29 0.70 - 1.30 mg/dL 10/19/2023 3:49 PM CDT [facility] BUN/CREATININE RATIO 16 12 - 20 ratio 10/19/2023 3:49 PM CDT [facility] TOTAL PROTEIN 7.1 6.3 - 8.2 g/dL 10/19/2023 3:49 PM CDT [facility] ALBUMIN 4.6 3.5 - 5.0 g/dL 10/19/2023 3:49 PM CDT [facility] A/G RATIO 1.8 1.0 - 2.2 10/19/2023 3:49 PM CDT [facility] CALCIUM 10.0 8.7 - 10.5 mg/dL 10/19/2023 3:49 PM CDT [facility] T BILI 0.6 0.2 - 1.2 mg/dL 10/19/2023 3:49 PM CDT [facility] SGOT (AST) 44(H) 5 - 34 U/L 10/19/2023 3:49 PM CDT [facility] SGPT (ALT) 34 0 - 55 U/L 10/19/2023 3:49 PM CDT [facility] ALKALINE PHOSPHATASE 52 40 - 150 U/L 10/19/2023 3:49 PM CDT [facility] IS THE PATIENT REQUIRED TO BE FASTING? No 10/19/2023 3:49 PM CDT [facility] GFR, ESTIMATED 56(L) >=60 10/19/2023 3:49 PM CDT [facility] Comment: Creatinine Clearance is the preferred criteria for selecting drug dose adjustments in renally impaired patients. ??The GFR is provided as additional pertinent clinical information. GFR is reported in mL/min/1.73 sq m. Calculation based on the Chronic Kidney Disease Epidemiology Collaboration (CKD- EPI) equation refit without adjustment for race. GFR, EST. >60 >=60 024 3:49 PM CDT [facility] GFR, EST. NONAFRICAN 54(L) >=60 10/19/2023 3:49 PM CDT [facility] Blood Venipuncture / Unknown 10/19/2023 10:15 AM CDT 10/19/2023 10:15 AM CDT Jaylon Gudino MD CHEMISTRY ORDERABLES Final Result [facility] [address] [place] [address] documented in this encounter Visit Diagnoses Diagnosis Essential hypertension, benign- Primary Other hyperlipidemia Other specified hypothyroidism Chronic fatigue Other malaise and fatigue Screening for prostate cancer Special screening for malignant neoplasm of prostate Hyperglycemia Other abnormal glucose documented in this encounter Additional Health Concerns Assessment Noted Time PHQ-9 Depression Total Score: 0 04/20/19 24 9:50 AM PROCESS CONTROLLER documented as of this encounter Care Teams Cloth Reeler Relationship Specialty Start Date End Date Jaylon Gudino MD [address] [place] [address] PCP - General Internal Medicine 01/16/16 documented as of this encounter
--- OUTSIDE RECORDS SUMMARY | 2024-03-03 12:42 | XMS_ITS | Encounter Summary ---
Author Organization [facility] Address [address] [place] [address] Phone Care Team Providers Care Fishing Lure Assembler Name Role Phone Jaylon Gudino MD Primary Care Provider [phone] Reason for Visit * Reason Comments Medication Refill Encounter Details Date Type Department Care Team (Late st Contact Info) Description 09/29/2023 Refill [facility] - Internal Medicine - [place] [address] [place] [address] Jaylon Gudino MD [address] [place] [address] Medication Refill Social History Tobacco Use Types Packs/Day Years Used Date Smoking Tobacco: Former Cigarettes 1 10 Passive Smoke Exposure: Past Smokeless Tobacco: Never Alcohol Use Standard Drinks/Week Comments No 0 (1 standard drink = 0.6 oz pur e alcohol) [facility] Utilities Answer Date Recorded In the past 12 months has [employer] electric, gas, oil, or water company threatened [...] and Family Not on file 04/20/2023 Attends Jehovah'S Witness Services Not on file 04/20 Active Member [...] Total Score - Questions 1-9 0 04/02 [facility] [place] of Occupat ional Health - Occupational Stress [...] st Contact Info) Description 04/25/2024 9:30 AM WEED CUTTER [facility] - [place] [address] [place] [address] Jaylon Gudino MD [address] [place] [address] documented as of this encounter Visit Diagnoses Not on filedocumented in this encounter Additional Health Concerns Assessment Noted Time PHQ-9 Depression Total Score: 0 04/20/19 24 9:50 AM WEED CUTTER documented as of this encounter Care Teams Fishing Lure Assembler Relationship Specialty Start Date End Date Jaylon Gudino MD [address] [place] [address] PCP - General Internal Medicine 01/16/16 documented as of this encounter
--- OUTSIDE RECORDS SUMMARY | 2024-03-03 12:42 | XMS_ITS | Encounter Summary ---
Author Organization [facility] Address [address] [place] [address] Phone Care Team Providers Care Traffic Police Officer Name Role Phone Jaylon Gudino MD Primary Care Provider [phone] Reason for Visit * Reason Onset Date Comments Care Management 07/20/2023 Encounter Details Date Type Department Care Team (Late st Contact Info) Description 07/20/2023 Patient Outreach [facility] [address] [place] [address] Romy Rivera [place] Care Management Social History Tobacco Use Types Packs/Day Years Used Date Smoking Tobacco: Former Cigarettes 1 10 Passive Smoke Exposure: Past Smokeless Tobacco: Never Alcohol Use Standard Drinks/Week Comments No 0 (1 standard drink = 0.6 oz pur e alcohol) [facility] Utilities Answer Date Recorded In the past 12 months has [employer], gas, oil, or water [employer] threatened to shut off services in your home? No 04/20/2023 Social Connection and Isolat ion Panel [NHANES] Answer Date Recorded In a typical week, how many times do you talk on the phone with family, friends, or neighbors? More than three times a week 04/20/2023 Frequency of Social Gatherin gs with Friends and Family Not on file 04/20/2023 Attends Yarsani Services Not on file 04/20 Active Member [...] Total Score - Questions 1-9 0 04/02 [facility] [place] of Occupat ional Health - Occupational Stress [...] AM CDT Outbound call placed to Bacilio Ramirez regarding enrollment to [facility] services with [facility]. Patient answered the phone, who states that patient would not be interested in [facility] Management Services with [facility]. Program marked declined and encounter closed. documented in this encounter Plan of Treatment Upcoming Encounters Date Type Department Care Team (Late st Contact Info) Description 04/25/2024 9:30 AM ENGINEER PROCESS [facility] - [facility] - [place] [address] [place] [address] Jaylon Gudino MD [address] [place] [address] documented as of this encounter Visit Diagnoses Not on filedocumented in this encounter Additional Health Concerns Assessment Noted Time PHQ-9 Depression Total Score: 0 04/20/19 9:50 AM ENGINEER PROCESS documented as of this encounter Care Teams Traffic Police Officer Relationship Specialty Start Date End Date Jaylon Gudino MD [address] [place] [address] PCP - General Internal Medicine 01/16/16 documented as of this encounter
--- OUTSIDE RECORDS SUMMARY | 2024-03-03 12:42 | XMS_ITS | Clinical Summary ---
Author Organization [facility] Address [address], [facility] [address] [place] [address] Phone Care Team Providers Care Hose Cementer Name Role Phone Jaylon Gudino MD Primary [...] Type Department Care Team Description 02/21/2024 [facility] [address] [place] [address] Jaylon Gudino MD Medication [facility]ill [facility] [address] [place] [address] Jaylon Gudino MD [facility] [address] [place] [address] Jaylon Gudino MD 01/21/2024 7:09 AM BUSINESS ETHICS PROFESSOR - 01/21/2024 11:59 PM BUSINESS ETHICS PROFESSOR Hospital Encounter [facility] Ultrasound [address] [place] [address] Jaylon Gudino MD Discharge Disposition: Discharged to home or Selfcare 01/19/2024 [facility]phone [facility] [place] [address] Jaylon Gudino MD 01/18/2024 10:30 AM BUSINESS ETHICS PROFESSOR [facility] [place] [place] [address] [facility] [place] [facility] Elevated liver enzymes Discharge Disposition: Discharged to home or Selfcare 01/18/2024 Travel 01/03/[facility] [address] [place] [address] Jaylon Gudino MD Medication Refill 12/23/2023 [facility] [address] [place] [address] Jaylon Gudino MD Medication Refill from Last [...] 23 Valent Pneumococcal conjugate PCV20 , polysaccharide FDB085 conjugate, adjuvant, PF 03/31/2022 TDAP Vaccine 07/23/2022 [...] = 0.6 oz pur e alcohol) [facility] Utilities Answer Date Recorded In the past 12 months has [employer], gas, oil, or water [employer] threatened to shut off services in your home? No 04/20/2023 Social Connection and Isolat ion Panel [NHANES] Answer Date Recorded In a typical week, how many times do you talk on the phone with family, friends, or neighbors? More than three times a week 04/20/2023 Frequency of Social Gatherin gs with Friends and Family Not on file 04/20/2023 Attends Buddhist Services Not on file 04/20 Active Member [...] Total Score - Questions 1-9 0 04/02 [facility] Occupat ional Health - Occupational Stress [...] Contact Info) Description 04/25/2024 9:30 AM BUSINESS ETHICS PROFESSOR [facility] - [place] [address] [place] [address] Jaylon Gudino MD [address] [place] [address] Health Maintenance Due Date Last Done Comments [...] this topic Medical Devices Implanted Type Area Clam Digger Device Identifier Shelf Expiration Date Model / Serial / Lot Ana Rosa Delphos, Fluoroplastic Intranasal Splint, Oversize Thick 0.50mm Implanted:Qty: 1 on 02/01/2016 [facility] Left: Nose 08/26/2023 / / [id number] Ana Orsa Delphos, Fluoroplastic Intranasal Splint, Oversize Thick (0.50mm) Implanted:Qty: 1 on 02/01/2016 by [facility] Right: Nose 08/26/2023 / / [id number] Procedures Procedure Name Priority Date/Time Associated Diagnosis Comments SARS-COV-2 BY MOLECULAR 02/25/2024 12:00 AM BUSINESS ETHICS PROFESSOR US ABDOMEN LIMITED LEVEL 3 THREE ORGAN Routine 01/21/2024 7:26 AM BUSINESS ETHICS PROFESSOR Elevated liver enzymes HEPATIC FUNCTION PANEL Routine 01/18/2024 10:13 AM BUSINESS ETHICS PROFESSOR Elevated liver enzymes from Last 3 Months Results * SARS-COV-2 BY MOLECULAR (02/25/2024 12:00 AM BUSINESS ETHICS PROFESSOR) 02/25/2024 us Provider Scan MICROBIOLOGY - GENERAL ORDERABLE S Final Result SCAN * US ABDOMEN LIMITED LEVEL 3 THREE ORGAN (01/21/2024 7:26 AM BUSINESS ETHICS PROFESSOR) Anatomical Region Laterality Modality Abdomen N/A Ultrasound 01/25/2024 4:16 PM BUSINESS ETHICS PROFESSOR Impressions 01/25/2024 4:18 PM BUSINESS ETHICS PROFESSOR IMPRESSION: Mild hepatic steatosis. Gallbladder sludge. No cholelithiasis or sonographic evidence of cholecystitis. Narrative 01/25/2024 4:18 PM BUSINESS ETHICS PROFESSOR EXAM DESCRIPTION: ?? US ABDOMEN LIMITED LEVEL [...] PM T: ??01/25/2024 4:16 PM Report ID: [id number] Reading Location: ??[id number] Procedure Note Destiney Aldrich MD - 01/25/2024 [...] Destiney Aldrich M.D. TW: TW Report ID: [id number] Reading Location: [id number] IMPRESSION: Mild hepatic steatosis. Gallbladder sludge. No cholelithiasis or sonographic evidence of cholecystitis. us Jaylon Gudino MD [facility] US ORDERABLES Final Res ult * (ABNORMAL) HEPATIC FUNCTION PANEL (01/18/2024 10:13 AM BUSINESS ETHICS PROFESSOR) T BILI 0.5 0.2 - 1.2 mg/dL 01/18/2024 4:10 PM BUSINESS ETHICS PROFESSOR [facility] BILIRUBIN,DIRECT 0.1 0.0 - 0.5 mg/dL 01/18/2024 4:10 PM BUSINESS ETHICS PROFESSOR [facility] ALKALINE PHOSPHATASE 65 40 - 150 U/L 01/18/2024 4:10 PM BUSINESS ETHICS PROFESSOR [facility] SGOT (AST) 40(H) 5 - 34 U/L 01/18/2024 4:10 PM BUSINESS ETHICS PROFESSOR [facility] SGPT (ALT) 42 0 - 55 U/L 01/18/2024 4:10 PM BUSINESS ETHICS PROFESSOR [facility] TOTAL PROTEIN 7.4 6.3 - 8.2 g/dL 01/18/2024 4:10 PM BUSINESS ETHICS PROFESSOR [facility] ALBUMIN 4.7 3.5 - 5.0 g/dL 01/18/2024 4:10 PM BUSINESS ETHICS PROFESSOR [facility] Blood Venipuncture / Unknown 01/18/2024 10:13 AM BUSINESS ETHICS PROFESSOR 01/18/2024 10:18 AM BUSINESS ETHICS PROFESSOR Jaylon Gudino MD CHEMISTRY ORDERABLES Final Result [facility] [address] [place] [address] from Last 3 Months Insurance MEDICARE Member Subscriber Plan / Payer (Ef fective 2008-Present) Name:Bacilio Ramirez Member ID:[id number] Relation to Subscriber:Self Name:Bacilio Ramirez Subscriber ID:[id number] Payer ID:[id number] Group ID:Not on file Type:Not on file Address: [facility] [address] [facility] [address] [facility], [facility] [place] [address] Care Teams Hose Cementer Relationship Specialty Start Date End Date Jaylon Gudino MD [address] [place] [address] PCP - General Internal Medicine 01/16/16
--- OUTSIDE RECORDS SUMMARY | 2024-03-03 12:42 | XMS_ITS | Patient Health Summary ---
Author Organization [facility] Address [address] [place] [address] Care Team Providers Care [employer] Consultant Name Role Phone Unavailable Primary Care Provider Unavailabl e Note from [facility],non-owned Affiliates and Associated Physician Practices is amultiple site organization consisting of ambulatory clinics and hospital sitesin [place], [place], [place] and [place]. This disclosure is being madepursuant to the Care Everywhere program and may not contain all information available regarding this patient. Last updated 17.[facility] Social History Tobacco Use Types Packs/Day Years Used Date Smoking Tobacco: Never Assessed Sex and Gender Information Value Date Recorded Sex Assigned at Not on file Gender Identity Not on file Sexual Orientation Not on file Procedures * DERMATOPATHOLOGY(Performed 02/19/2022) Results * DERMATOPATHOLOGY (02/19/2022 12:00 AM NEON PUMPER) Case Report Dermatopathology Report ? Case: [id number] ? Authorizing Provider: ??Dashawn Hou MD ?Collected: ? 02/19/2022 12:00 AM ? Ordering Location: ? [facility] Care DermPath Lab ?Received: ?02/21/2022 06:54 AM ? Pathologist: ? Andressa Ba MD ? Specimen: ?Skin, plantar right heel ? 2 3:11 PM [facility] DERMATOPATHOLOGY [facility]ORATORY Final Diagnosis Specimen A. SKIN, plantar right heel: VERRUCA VULGARIS (B07.8) (see microscopic description) 2 3:11 PM [facility] DERMATOPATHOLOGY [facility]ORATORY Clinical History R/O wart vs neoplasm undetermined 2 3:11 PM [facility] DERMATOPATHOLOGY [facility]ORATORY Gross Description Specimen A: Received is one formalin filled container labeled with the patient's name and designated plantar right heel. The specimen consists of a punch biopsy measuring 6x6x6 mm, bisected. Jar 0. 2 3:11 PM [facility] DERMATOPATHOLOGY [facility]ORATORY Microscopic Description Specimen A. SKIN, plantar right heel: There is digitated epidermal hyperplasia, hypergranulosis, vacuolated granular layer cells, and compact hyperorthokeratosis . Focal endophytic features are present. 2 3:11 PM [facility] DERMATOPATHOLOGY LABORATORY Disclaimer An external and internal positive and negative controls are appropriate for the histochemical, immunohistochemical and immunofluorescence stain(s) in this case (if any), except where stated explicitly. The performance characteristics of the stain(s) cited in this report were developed and its performance characteristic determined by the Dermatopathology Laboratory at [facility], directed by Dr. Christine Zapata. These tests need not be, and therefore are not, approved by the [place] Food and Drug Administration. The tests are used for clinical purposes. Billing Codes Specimen Charges Stain Charges 56099 1 2 3:11 PM [facility] DERMATOPATHOLOGY [facility]ORATORY Embedded Images 2 3:11 PM [facility] DERMATOPATHOLOGY [facility]ORATORY Pathology/Cytolog y TISSUE SPECIMEN FROM SKIN / Unknown 02/19/2022 02/21/2022 6:54 AM [facility] Dashawn Hou MD LAB - PATHOLOGY/CYTO LOGY ORDERABLES DERMATOPATHOLOGY LABORATORY [facility] - Department of Dermatology [facility] Specialized Medicine [address] [place] [address], [address] [phone]
--- OUTSIDE RECORDS SUMMARY | 2024-03-03 12:42 | XMS_ITS | Encounter Summary ---
Author Organization [facility] Address [address] [place] [address] Phone Care Team Providers Care Scientific Director Name Role Phone Jaylon Gudino MD Primary Care Provider [phone] Reason for Visit * Reason Comments Medication Refill Encounter Details Date Type Department Care Team (Late st Contact Info) Description 01/03/2024 Refill [facility] - Internal Medicine - [place] [address] [place] [address] Jaylon Gudino MD [address] [facility] [place] [address] Medication Refill Social History Tobacco Use Types Packs/Day Years Used Date Smoking Tobacco: Former Cigarettes 1 10 Passive Smoke Exposure: Past Smokeless Tobacco: Never Alcohol Use Standard Drinks/Week Comments No 0 (1 standard drink = 0.6 oz pur e alcohol) [facility] Utilities Answer Date Recorded In the past 12 months has [employer] electric, gas, oil, or water company threatened [...] and Family Not on file 04/20/2023 Attends Gnosticist Services Not on file 04/20 Active Member [...] Total Score - Questions 1-9 0 04/02 [facility] of Occupat ional Health - Occupational Stress [...] AM CST Medication(s) [facility] and [facility] Refill Standing Order [...] [place] 04/20/23 Office Visit Jaylon Gudino MD [facility] [place] Showing recent visits within past 365 days and meeting all other requirements Future Appointments No visits were found meeting these conditions. Showing future appointments within next 90 days and meeting all other requirements Y OUT CLERK documented in this encounter Plan of Treatment Upcoming Encounters Date Type Department Care Team (Late st Contact Info) Description 04/25/2024 9:30 AM CARRY OUT CLERK [facility] - [place] [address] [place] [address] Jaylon Gudino MD [address] [place] [address] documented as of this encounter Visit Diagnoses Not on filedocumented in this encounter Additional Health Concerns Assessment Noted Time PHQ-9 Depression Total Score: 0 02/19/20 24 9:50 AM CARRY OUT CLERK documented as of this encounter Care Teams Scientific Director Relationship Specialty Start Date End Date Jaylon Gudino MD [address] [place] [address] PCP - General Internal Medicine 01/16/16 documented as of this encounter
--- OUTSIDE RECORDS SUMMARY | 2024-03-03 12:42 | XMS_ITS | Encounter Summary ---
Author Organization [facility] Address [address] [place] [address] Phone Care Team Providers Care Global Sales Director Name Role Phone Jaylon Gudino MD Primary Care Provider [phone] Reason for Visit * Reason Comments Medication Refill Encounter Details Date Type Department Care Team (Late st Contact Info) Description 02/21/2024 Refill [facility] - Internal Medicine - [place] [address] [place] [address] Jaylon Gudino MD [address] [facility] [place] [address] Medication Refill Social History Tobacco Use Types Packs/Day Years Used Date Smoking Tobacco: Former Cigarettes 1 10 Passive Smoke Exposure: Past Smokeless Tobacco: Never Alcohol Use Standard Drinks/Week Comments No 0 (1 standard drink = 0.6 oz pur e alcohol) [facility] Utilities Answer Date Recorded In the past 12 months has [email or web address], gas, oil, or water company threatened [...] and Family Not on file 04/20/2023 Attends Christian Services Not on file 04/20 Active Member [...] Total Score - Questions 1-9 0 04/02 [facility] [place] of Occupat ional Health - Occupational Stress [...] 10/19/23 Office Visit Jaylon Gudino MD [facility] [place] 04/20/23 Office Visit Jaylon Gudino MD [facility] Showing recent visits within past 365 days and meeting all other requirements Future Appointments Date Type Provider Dept 04/25/24 Appointment [facility] Show[facility] future appointments within next 90 days [...] Value Ref Range Status 10/19/2023 No Final D CORNER CUTTER OPERATOR documented in this encounter Plan of Treatment Upcoming Encounters Date Type Department Care Team (Late st Contact Info) Description 04/25/2024 9:30 AM ROUND CORNER CUTTER OPERATOR [facility] Visit [facility] - Internal Medicine [facility] [address] [place] [address] Jaylon Gudino MD [address] [place] [address] documented as of this encounter Visit Diagnoses Not on filedocumented in this encounter Additional Health Concerns Assessment Noted Time PHQ-9 Depression Total Score: 0 04/20/19 24 9:50 AM ROUND CORNER CUTTER OPERATOR documented as of this encounter Care Teams Global Sales Director Relationship Specialty Start Date End Date Jaylon Gudino MD [address] [place] [address] PCP - General Internal Medicine 01/16/16 documented as of this encounter
--- OUTSIDE RECORDS SUMMARY | 2024-03-03 12:42 | XMS_ITS | Encounter Summary ---
Author Organization [facility] Address [address] [place] [address] Phone Care Team Providers Care Counter Top Assembler Name Role Phone Jaylon Gudino MD Primary Care Provider [phone] Reason for Visit * Reason Comments Hypertension 6 mo f/u Nasal Congestion For 11 days Encounter Details Date Type Department Care Team (Late st Contact Info) Description 04/20/2023 9:45 AM SED HIGH SCHOOL TEACHER Office Visit [facility] Medical Group - Internal Medicine - [place] [address] [place] [address] Jaylon Gudino MD [address] [place] [address] Essential hypertension, benign (Primary Dx); Infrarenal abdominal [...] drink = 0.6 oz pur e alcohol) [facility] Utilities Answer Date Recorded In the past 12 months has [employer], gas, oil, or water company threatened to [...] and Family Not on file 04/20/2023 Attends Oriental Orthodox Services Not on file 04/20 Active [...] Total Score - Questions 1-9 0 04/02 [facility] Occupat ional Health - Occupational Stress [...] Comments Blood Pressure 110/58 04/20/2023 9:47 AM SED HIGH SCHOOL TEACHER Pulse 62 04/20/2023 9:47 AM SED HIGH SCHOOL TEACHER Temperature 36.1 ??C (97 ??F) 04/20/2023 9:47 AM SED HIGH SCHOOL TEACHER Respiratory Rate - - Oxygen Saturation 99% 04/20/2023 9:47 AM SED HIGH SCHOOL TEACHER Inhaled Oxygen Concentration - - Weight 79.4 kg (175 lb) 04/20/2023 9:47 AM SED HIGH SCHOOL TEACHER Height 177.8 cm (5' 10 ) 04/20/2023 9:47 AM SED HIGH SCHOOL TEACHER Body Mass Index 25.11 04/20/2023 9:47 AM SED HIGH SCHOOL TEACHER documented in this encounter Functional Status * Within the last year, have you been afraid of your partner or ex-partner? Answer Date of Assessment Author Patient declined 04/20/2023 9:28 AM Abby Warner [facility] [place] * Q1: How often do you have a drink containing alcohol? Answer Date of Assessment Author Never 04/20/2023 9:28 AM John [facility] [place] Ios * Question Answer Date of Assessment [...] Jaylon Gudino MD - 04/20/2023 9:45 AM SED HIGH SCHOOL TEACHER RECOMMENDED DURING YOUR VISIT TODAY Zoster (Shingles) Vaccine RSV Vaccine HIGH SCHOOL TEACHER documented in this encounter Progress Notes * India Terrell CMA - 04/20/2023 9:45 AM CST Bacilio screened for Social Determinants of Health and no needs identified. HIGH SCHOOL TEACHER * India Terrell CMA - 04/20/2023 9:45 [...] today: BMI, Smoking, Depression and Fall Risk HIGH SCHOOL TEACHER * Jaylon Gudino MD - 04/20/2023 9:45 AM CST PROGRESS NOTE [facility] [address] [place] [address] PHONE: [phone] FAX: [phone] 04/20/2023 NAME: Bacilio Ramirez, : 1945, Assessment [...] By: Jaylon Gudino MD 04/20/2023 10:10 AM SED HIGH SCHOOL TEACHER HIGH SCHOOL TEACHER documented in this encounter Plan of Treatment Upcoming Encounters Date Type Department Care Team (Late st Contact Info) Description 04/25/2024 9:30 AM SED HIGH SCHOOL TEACHER Office Visit [facility] Medical Group - Internal Medicine - [place] [address] [place] [address] Jaylon Gudino MD [address] [place] [address] documented as of this encounter Visit Diagnoses Diagnosis Essential hypertension, benign- Primary Infrarenal abdominal aortic aneurysm (AAA) without rupture (HCC) Other specified hypothyroidism Other hyperlipidemia GERD without esophagitis Esophageal reflux Upper respiratory tract infection, unspecified type documented in this encounter Additional Health Concerns Assessment Noted Time PHQ-9 Depression Total Score: 0 04/20/19 9:50 AM SED HIGH SCHOOL TEACHER documented as of this encounter Care Teams Counter Top Assembler Relationship Specialty Start Date End Date Jaylon Gudino MD [address] [place] [address] PCP - General Internal Medicine 01/16/16 documented as of this encounter
--- OUTSIDE RECORDS SUMMARY | 2024-03-03 12:42 | XMS_ITS | Encounter Summary ---
Author Organization [facility] Address [address] [place] [address] Phone Care Team Providers Care Investment Broker Name Role Phone Jaylon Gudino MD Primary Care Provider [phone]- [phone] Reason for Visit * Reason Comments Medication Refill Encounter Details Date Type Department Care Team (Late st Contact Info) Description 07/03/2023 Refill [facility] Medical Group - Internal Medicine - [place] [address] [place] [phone] Jaylon Gudino MD [address] [place] [address] Medication Refill Social History Tobacco Use Types Packs/Day Years Used Date Smoking Tobacco: Former Cigarettes 1 10 Passive Smoke Exposure: Past Smokeless Tobacco: Never Alcohol Use Standard Drinks/Week Comments No 0 (1 standard drink = 0.6 oz pur e alcohol) [facility] Utilities Answer Date Recorded In the past 12 months has [employer], gas, oil, or water company threatened [...] Score - Questions 1-9 0 04/02 [facility] [place] of Occupat ional Health - Occupational Stress [...] Dept 04/20/23 Office Visit [place]ud[place] [facility] [place] 09/29/22 Office Visit Jaylon Gudino MD [facility] [place] Showing recent visits within [...] st Contact Info) Description 04/25/2024 9:30 AM BROWNFIELD PROGRAM COORDINATOR Office Visit [facility] - Internal Medicine - [place] [address] [place] [phone] Jaylon Gudino MD [address] [place] [address] documented as of this encounter Visit Diagnoses Not on filedocumented in this encounter Additional Health Concerns Assessment Noted Time PHQ-9 Depression Total Score: 0 04/20/19 24 9:50 AM BROWNFIELD PROGRAM COORDINATOR documented as of this encounter Care Teams Investment Broker Relationship Specialty Start Date End Date Jaylon Gudino MD [address] [place] [address] PCP - General Internal Medicine 01/16/16 documented as of this encounter
--- OUTSIDE RECORDS SUMMARY | 2024-03-03 12:42 | XMS_ITS | Encounter Summary ---
Author Organization [facility] Address [address] [place] [address] Phone Care Team Providers Care Collision Worker Name Role Phone Jaylon Gudino MD Primary Care Provider Reason for Visit * Reason Comments Medication Refill Encounter Details Date Type Department Care Team (Late st Contact Info) Description 08/16/2023 Refill [facility] Medical Group - Internal Medicine - [place] [address] [place] [phone] Claudia Sevilla, [facility] [address] [place] [address] Medication Refill Social History Tobacco Use Types Packs/Day Years Used Date Smoking Tobacco: Former Cigarettes 1 10 Passive Smoke Exposure: Past Smokeless Tobacco: Never Alcohol Use Standard Drinks/Week Comments No 0 (1 standard drink = 0.6 oz pur e alcohol) [facility] Utilities Answer Date Recorded In the past 12 months has [employer] electric, gas, oil, or water company threatened [...] and Family Not on file 04/20/2023 Attends Rastafarian Services Not on file 04/20 Active Member [...] Total Score - Questions 1-9 0 04/02 [facility] of Occupat ional Health - Occupational [...] 04/20/23 Office Visit Jaylon Gudino MD [facility] [place] 09/29/22 Office Visit Jaylon Gudino MD [facility] [place] Showing recent visits within past 365 days and meeting all other requirements Future Appointments Date Type Provider Dept 10/19/23 Appointment Jaylon Gudino MD [facility] [place] Showing future appointments within next 90 days [...] st Contact Info) Description 04/25/2024 9:30 AM CYTOLOGY LABORATORY MANAGER Office Visit [facility] - [facility] [address] [place] [address] Jaylon Gudino MD [address] [place] [address] documented as of this encounter Visit Diagnoses Not on filedocumented in this encounter Additional Health Concerns Assessment Noted Time PHQ-9 Depression Total Score: 0 04/20/19 24 9:50 AM CYTOLOGY LABORATORY MANAGER documented as of this encounter Care Teams Collision Worker Relationship Specialty Start Date End Date Jaylon Gudino MD [address] [place] [address] PCP - General Internal Medicine 01/16/16 documented as of this encounter
--- OUTSIDE RECORDS SUMMARY | 2024-03-03 12:42 | XMS_ITS | Encounter Summary ---
Author Organization [facility] Address [address] [place] [address] Phone Care Team Providers Care Survey Research Manager Name Role Phone Jaylon Gudino MD Primary Care Provider [phone]- [phone] Reason for Visit * Reason Comments Medication Refill Encounter Details Date Type Department Care Team (Late st Contact Info) Description 09/29/2023 Refill [facility] Medical Group - Internal Medicine - [place] [address] [place] [phone] Jaylon Gudino MD [address] [place] [place] [address] Medication Refill Social History Tobacco Use Types Packs/Day Years Used Date Smoking Tobacco: Former Cigarettes 1 10 Passive Smoke Exposure: Past Smokeless Tobacco: Never Alcohol Use Standard Drinks/Week Comments No 0 (1 standard drink = 0.6 oz pur e alcohol) [facility] Utilities Answer Date Recorded In the past 12 months has [employer], gas, oil, or water company threatened [...] and Family Not on file 04/20/2023 Attends Yazdanism Services Not on file 04/20 Active Member [...] Total Score - Questions 1-9 0 04/02 [facility] [place] of Occupat ional Health - Occupational Stress [...] [place] 09/29/22 Office Visit Jaylon Gudino MD [facility] [place] Showing recent visits within past 365 days and meeting all other requirements Future Appointments Date Type Provider Dept 10/19/23 Appointment Jaylon Gudino MD [facility] [place] Showing future appointments within next 90 days and meeting all other requirements documented in this encounter Plan of Treatment Upcoming Encounters Date Type Department Care Team (Late st Contact Info) Description 04/25/2024 9:30 AM CHILD & ADOLESCENT PSYCHIATRIST Office Visit [facility] - Internal Medicine - [place] [address] [place] [phone] Jaylon Gudino MD [address] [place] [address] documented as of this encounter Visit Diagnoses Not on filedocumented in this encounter Additional Health Concerns Assessment Noted Time PHQ-9 Depression Total Score: 0 04/20/19 24 9:50 AM CHILD & ADOLESCENT PSYCHIATRIST documented as of this encounter Care Teams Survey Research Manager Relationship Specialty Start Date End Date Jaylon Gudino MD [address] [place] [address] PCP - General Internal Medicine 01/16/16 documented as of this encounter
--- OUTSIDE RECORDS SUMMARY | 2024-03-03 12:42 | XMS_ITS | Encounter Summary ---
Author Organization [facility] Address [address] [place] [address] Phone Care Team Providers Care Eyelet Row Marker Name Role Phone Jaylon Gudino MD Primary Care Provider [phone]- [phone] Reason for Visit * Reason Comments Medication Refill Encounter Details Date Type Department Care Team (Late st Contact Info) Description 07/06/2023 Refill [facility] Medical Group - Internal Medicine - [place] [address] [place] [phone] Jaylon Gudino MD [address] [facility] [address] Medication Refill Social History Tobacco Use Types Packs/Day Years Used Date Smoking Tobacco: Former Cigarettes 1 10 Passive Smoke Exposure: Past Smokeless Tobacco: Never Alcohol Use Standard Drinks/Week Comments No 0 (1 standard drink = 0.6 oz pur e alcohol) [facility] Utilities Answer Date Recorded In the past 12 months has [employer], gas, oil, or water company threatened [...] and Family Not on file 04/20/2023 Attends Faith Services Not on file 04/20 Active Member [...] - Questions 1-9 0 04/02 [facility] [place] of Occupat ional Health - Occupational Stress [...] Telephone Encounter - Luzma Liu RN - 07/06/2023 2:08 PM CDT Medication(s) refilled and [facility] [...] 04/20/23 Office Visit Jaylon Gudino MD [facility] [place] 09/29/22 Office Visit Jaylon Gudino MD [facility] [place] Showing recent visits within past 365 days and meeting all other requirements Future Appointments No visits were found meeting these conditions. Showing future appointments within next 90 days and meeting all other requirements documented in this encounter Plan of Treatment Upcoming Encounters Date Type Department Care Team (Late st Contact Info) Description 04/25/2024 9:30 AM BILINGUAL NANNY Office Visit [facility] - [facility] - [place] [address] [place] [phone] Jaylon Gudino MD [address] [place] [address] documented as of this encounter Visit Diagnoses Not on filedocumented in this encounter Additional Health Concerns Assessment Noted Time PHQ-9 Depression Total Score: 0 04/20/19 24 9:50 AM BILINGUAL NANNY documented as of this encounter Care Teams Eyelet Row Marker Relationship Specialty Start Date End Date Jaylon Gudino MD [address] [place] [address] PCP - General Internal Medicine 01/16/16 documented as of this encounter
--- OUTSIDE RECORDS SUMMARY | 2024-03-03 12:42 | XMS_ITS | Encounter Summary ---
Author Organization [facility] Address [address] [place] [address] Phone Care Team Providers Care Personal Lines Sales Rep Name Role Phone Jaylon Gudino MD Primary Care Provider Encounter Details Date Type Department Care Team (Late st Contact Info) Description 10/20/2023 Telephone [facility] - Internal Medicine - [place] [address] [place] [address] Jaylon Gudino MD [address] [place] [address] Social History Tobacco Use Types Packs/Day Years Used Date Smoking Tobacco: Former Cigarettes 1 10 Passive Smoke Exposure: Past Smokeless Tobacco: Never Alcohol Use Standard Drinks/Week Comments No 0 (1 standard drink = 0.6 oz pur e alcohol) [facility] Utilities Answer Date Recorded In the past 12 months has [employer], gas, oil, or water [employer] threatened to shut off services in your [...] Total Score - Questions 1-9 0 04/02 [facility] [place] of Occupat ional Health - Occupational Stress [...] Contact Info) Description 04/25/2024 9:30 AM BAR BACK Office Visit [facility] - Internal Medicine [facility] [address] [place] [phone] Jaylon Gudino MD [address] [place] [address] documented as of this encounter Results * (ABNORMAL) HEPATIC FUNCTION PANEL (01/18/2024 10:13 AM BAR BACK) T BILI 0.5 0.2 - 1.2 mg/dL 01/18/2024 4:10 PM BAR BACK [facility] BILIRUBIN,DIRECT 0.1 0.0 - 0.5 mg/dL 01/18/2024 4:10 PM BAR BACK [facility] ALKALINE PHOSPHATASE 65 40 - 150 U/L 01/18/2024 4:10 PM BAR BACK [facility] SGOT (AST) 40(H) 5 - 34 U/L 01/18/2024 4:10 PM BAR BACK [facility] SGPT (ALT) 42 0 - 55 U/L 01/18/2024 4:10 PM BAR BACK [facility] TOTAL PROTEIN 7.4 6.3 - 8.2 g/dL 01/18/2024 4:10 PM BAR BACK [facility] ALBUMIN 4.7 3.5 - 5.0 g/dL 01/18/2024 4:10 PM BAR BACK [facility] Blood Venipuncture / Unknown 01/18/2024 10:13 AM BAR BACK 01/18/2024 10:18 AM BAR BACK Jaylon Gudino MD CHEMISTRY ORDERABLES Final Result [facility] [address] [place] [address] documented in this encounter Visit Diagnoses Diagnosis Elevated liver enzymes- Primary Nonspecific elevation of levels of transaminase or lactic acid dehydrogenase (LDH) documented in this encounter Additional Health Concerns Assessment Noted Time PHQ-9 Depression Total Score: 0 04/20/19 24 9:50 AM BAR BACK documented as of this encounter Care Teams Personal Lines Sales Rep Relationship Specialty Start Date End Date Jaylon Gudino MD [address] [place] [address] PCP - General Internal Medicine 01/16/16 documented as of this encounter
--- OUTSIDE RECORDS SUMMARY | 2024-03-03 12:42 | XMS_ITS | Encounter Summary ---
Author Organization [facility] Address [address] [place] [address] Phone Care Team Providers Care Elementary School Social Worker Name Role Phone Jaylon Gudino MD Primary Care Provider [phone]- [phone] Encounter Details Date Type Department Care Team (Late st Contact Info) Description 01/25/2024 Telephone [facility] - [place] [address] [place] [address] Jaylon Gudino MD [address] [place] [address] Social History Tobacco Use Types Packs/Day Years Used Date Smoking Tobacco: Former Cigarettes 1 10 Passive Smoke Exposure: Past Smokeless Tobacco: Never Alcohol Use Standard Drinks/Week Comments No 0 (1 standard drink = 0.6 oz pur e alcohol) [facility] Utilities Answer Date Recorded In the past 12 months has [employer], gas, oil, or water [email or web address] threatened to shut off services in your [...] Total Score - Questions 1-9 0 04/02 [facility] [place] of Occupat ional Health - Occupational Stress [...] 01/25 at 8am Was sent to pt DED RUG MAKER * Telephone Encounter - [place] Terrell CMA - 01/25/2024 12:41 PM BRAIDED RUG MAKER Req US sound results from 01/21/2024. DED RUG MAKER documented in this encounter Plan of Treatment Upcoming Encounters Date Type Department Care Team (Late st Contact Info) Description 04/25/2024 9:30 AM BRAIDED RUG MAKER [facility] - Internal Medicine [place] [address] [place] [address] Jaylon Gudino MD [address] [place] [address] documented as of this encounter Visit Diagnoses Not on filedocumented in this encounter Additional Health Concerns Assessment Noted Time PHQ-9 Depression Total Score: 0 04/20/19 9:50 AM BRAIDED RUG MAKER documented as of this encounter Care Teams Elementary School Social Worker Relationship Specialty Start Date End Date Jaylon Gudino MD [address] [place] [address] PCP - General Internal Medicine 01/16/16 documented as of this encounter
--- OUTSIDE RECORDS SUMMARY | 2024-03-03 12:42 | XMS_ITS | Encounter Summary ---
Author Organization [facility] Address [address] [place] [address] Phone Care Team Providers Care Shank Stapler Name Role Phone Jaylon Gudino MD Primary Care Provider [phone]- [phone] Encounter Details Date Type Department Care Team (Late st Contact Info) Description 01/26/2024 Telephone [facility] - [place] [address] [place] [address] Jaylon Gudino MD [address] [place] [address] Social History Tobacco Use Types Packs/Day Years Used Date Smoking Tobacco: Former Cigarettes 1 10 Passive Smoke Exposure: Past Smokeless Tobacco: Never Alcohol Use Standard Drinks/Week Comments No 0 (1 standard drink = 0.6 oz pur e alcohol) [facility] Utilities Answer Date Recorded In the past 12 months has [employer], gas, oil, or water [employer] threatened to shut off services in your home? No 04/20/2023 Social Connection and Isolat ion Panel [NHANES] Answer Date Recorded In a typical week, how many times do you talk on the phone with family, friends, or neighbors? More than three times a week 04/20/2023 Frequency of Social Gatherin gs with Friends and Family Not on file 04/20/2023 Attends Worship Services Not on file 04/20 Active Member [...] Total Score - Questions 1-9 0 04/02 [facility] of Occupat ional Health - Occupational Stress [...] file 04/20/2023 Housing Stability Vital Sign Answer Calus e Recorded In the last 12 months, [...] included. Jaylon Gudino MD 01/26/2024 8:01 AM CHAIN PERSON Back to Top Liver and gallbladder ultrasound shows mild fatty liver. Sludge in gallbladder no inflammation of gallbladder. For fatty liver needs to lose weight. Read today N PERSON * Telephone Encounter - Amy Lou - 01/26/2024 8:36 AM CST Test results Don left a message on the machine after hours 1124 and is requesting his Ultrasound results Phone - [phone] N PERSON documented in this encounter Plan of Treatment Upcoming Encounters Date Type Department Care Team (Late st Contact Info) Description 04/25/2024 9:30 AM CHAIN PERSON [facility] [address] [place] [phone] Jaylon Gudino MD [address] [place] [address] documented as of this encounter Visit Diagnoses Not on filedocumented in this encounter Additional Health Concerns Assessment Noted Time PHQ-9 Depression Total Score: 0 04/20/19 9:50 AM CHAIN PERSON documented as of this encounter Care Teams Shank Stapler Relationship Specialty Start Date End Date Jaylon Gudino MD [address] [place] [address] PCP - General Internal Medicine 01/16/16 documented as of this encounter
--- OUTSIDE RECORDS SUMMARY | 2024-03-03 12:42 | XMS_ITS | Encounter Summary ---
Author Organization [facility] Address [address] [place] [address] Phone Care Team Providers Care Hide Buffer Name Role Phone Jaylon Gudino MD Primary Care Provider [phone]- [phone] Reason for Visit * Reason Comments Medication Refill Encounter Details Date Type Department Care Team (Late st Contact Info) Description 12/23/[address] [facility] Medical Group - Internal Medicine - [place] [address] [place] [address] Jaylon Gudino MD [address] [facility] [place] [address] Medication Refill Social History Tobacco Use Types Packs/Day Years Used Date Smoking Tobacco: Former Cigarettes 1 10 Passive Smoke Exposure: Past Smokeless Tobacco: Never Alcohol Use Standard Drinks/Week Comments No 0 (1 standard drink = 0.6 oz pur e alcohol) [place] Utilities Answer Date Recorded In the past 12 months has [employer], gas, oil, or water company threatened [...] and Family Not on file 04/20/2023 Attends Sabianism Services Not on file 04/20 Active Member [...] Total Score - Questions 1-9 0 04/02 [facility] [place] of Occupat ional Health - Occupational Stress [...] AM CDT Medication(s) refilled and [facility] [...] Dept 10/19/23 Office Visit Jaylon Gudino MD [facility] [place]asey [place] 04/20/23 Office Visit Jaylon Gudino MD [facility] [place] Showing recent visits within past 365 [...] st Contact Info) Description 04/25/2024 9:30 AM BATTERY TESTER Office Visit [facility] - [facility] - [place] [address] [place] [phone] Jaylon Gudino MD [address] [place] [address] documented as of this encounter Visit Diagnoses Not on filedocumented in this encounter Additional Health Concerns Assessment Noted Time PHQ-9 Depression Total Score: 0 04/20/19 24 9:50 AM BATTERY TESTER documented as of this encounter Care Teams Hide Buffer Relationship Specialty Start Date End Date Jaylon Gudino MD [address] [place] [address] PCP - General Internal Medicine 01/16/16 documented as of this encounter
--- OUTSIDE RECORDS SUMMARY | 2024-03-03 12:42 | XMS_ITS | Encounter Summary ---
Author Organization [facility] Address [address] [place] [address] Phone Care Team Providers Care Shipyard Laborer Name Role Phone Jaylon Gudino MD Primary Care Provider [phone]- [phone] Reason for Referral * Radiology Services (Routine) - Closed Specialty Diagnoses / Procedures Referred By Lilly kraft Referred To Contact Radiology Diagnoses Elevated liver enzymes Procedures US ABDOMEN LIMITED LEVEL 3 THREE ORGAN Jaylon Gudino MD [address] [place] [address] Phone: tel: fax: Referral ID Status Reason Start Date Expiration Date Visits Re quested Visits Authorized [id number] Closed 01/19/2024 1 1 AL PROBLEMS SPECIALIST Encounter Details Date Type Department Care Team (Late st Contact Info) Description 01/19/2024 Telephone [facility] - Internal Medicine - [place] [address] [place] [address] Jaylon Gudino MD [address] [place] [address] Social History Tobacco Use Types Packs/Day Years Used Date Smoking Tobacco: Former Cigarettes 1 10 Passive Smoke Exposure: Past Smokeless Tobacco: Never Alcohol Use Standard Drinks/Week Comments No 0 (1 standard drink = 0.6 oz pur e alcohol) [facility] Utilities Answer Date Recorded In the [...] and Family Not on file 04/20/2023 Attends Amish Services Not on file 04/20 Active Member [...] Total Score - Questions 1-9 0 04/02 [facility] of Occupat ional Health - Occupational Stress [...] Kofi Gudino sent at 01/18/2024 4:24 PM SOCIAL PROBLEMS SPECIALIST ----- Hepatic function panel-liver enzymes still elevated. Needs to get liver ultrasound. AL PROBLEMS SPECIALIST documented in this encounter Plan of Treatment Upcoming Encounters Date Type Department Care Team (Late st Contact Info) Description 04/25/2024 9:30 AM SOCIAL PROBLEMS SPECIALIST Office [facility] - Internal Medicine - [place] [address] [place] [phone] Jaylon Gudino MD [address] [place] [address] documented as of this encounter Results * US ABDOMEN LIMITED LEVEL 3 THREE ORGAN (01/21/2024 7:26 AM SOCIAL PROBLEMS SPECIALIST) Anatomical Region Laterality Modality Abdomen N/A Ultrasound 01/25/2024 4:16 PM SOCIAL PROBLEMS SPECIALIST Impressions 01/25/2024 4:18 PM SOCIAL PROBLEMS SPECIALIST IMPRESSION: Mild hepatic steatosis. Gallbladder sludge. No cholelithiasis or sonographic evidence of cholecystitis. Narrative 01/25/2024 4:18 PM SOCIAL PROBLEMS SPECIALIST EXAM DESCRIPTION: ?? US ABDOMEN LIMITED LEVEL [...] PM T: ??01/25/2024 4:16 PM Report ID: [id number] Reading Location: ??[id number] Procedure Note Destiney Aldrich MD - 01/25/2024 [...] Destiney Aldrich M.D. TW: ALBINO Report ID: [id number] Reading Location: [id number] IMPRESSION: Mild hepatic steatosis. Gallbladder sludge. No [...] Total Score: 0 04/20/19 24 9:50 AM SOCIAL PROBLEMS SPECIALIST documented as of this encounter Care Teams Shipyard Laborer Relationship Specialty Start Date End Date Jaylon Gudino MD [address] [place] [address] PCP - General Internal Medicine 01/16/16 documented as of this encounter
--- OUTSIDE RECORDS SUMMARY | 2024-03-03 12:42 | XMS_ITS | Encounter Summary ---
Author Organization [facility] Address [address] [place] [address] Phone Care Team Providers Care Brake Repair Supervisor Name Role Phone Jaylon Gudino MD Primary Care Provider [phone] Reason for Visit * Reason Comments Medication Refill Encounter Details Date Type Department Care Team (Late st Contact Info) Description 11/24/2023 Refill [facility] Medical Group - Internal Medicine - [place] [address] [place] [address] Jaylon Gudino MD [address] [facility] [place] [address] Medication Refill Social History Tobacco Use Types Packs/Day Years Used Date Smoking Tobacco: Former Cigarettes 1 10 Passive Smoke Exposure: Past Smokeless Tobacco: Never Alcohol Use Standard Drinks/Week Comments No 0 (1 standard drink = 0.6 oz pur e alcohol) [facility] Utilities Answer Date Recorded In the past 12 months has [employer] electric, gas, oil, or water company threatened [...] Total Score - Questions 1-9 0 04/02 [facility] of Occupat ional Health - Occupational Stress [...] 10/19/23 Office Visit [facility] Showing recent visits within past [...] st Contact Info) Description 04/25/2024 9:30 AM DIAGRAMMER AND SEAMER Office Visit [facility] [address] [place] [address] Jaylon Gudino MD [address] [facility] [place] [address] documented as of this encounter Visit Diagnoses Not on filedocumented in this encounter Additional Health Concerns Assessment Noted Time PHQ-9 Depression Total Score: 0 04/20/19 9:50 AM DIAGRAMMER AND SEAMER documented as of this encounter Care Teams Brake Repair Supervisor Relationship Specialty Start Date End Date Jaylon Gudino MD [address] [place] [address] PCP - General Internal Medicine 01/16/16 documented as of this encounter
--- OUTSIDE RECORDS SUMMARY | 2024-03-03 12:42 | XMS_ITS | Encounter Summary ---
Author Organization [facility] Address [address] [facility] [place] [address] Care Team Providers Care Environment Coordinator Name Role Phone Unavailable Primary Care Provider Unavailabl e Encounter Details Date Type Department Care Team (Late st Contact Info) Description 02/21/2022 Lab Requisition [facility] [address] [facility], [place] [phone] Dashawn Hou MD [address] [place] [address] Social History Tobacco Use Types [...] Comments DERMATOPATHOLOGY Routine 02/19/2022 12:0 0 AM SHOP LEAD documented in this encounter Results * DERMATOPATHOLOGY (02/19/2022 12:00 AM SHOP LEAD) Case Report Dermatopathology Report ? Case: [id number] ? Authorizing Provider: ??Dashawn Hou MD ?Collected: ? 02/19/2022 12:00 AM ? Ordering Location: ? [facility] ?Received: ?02/21/2022 06:54 AM ? Pathologist: ? Andressa Ba MD ? Specimen: ?Skin, plantar right heel ? 2 3:11 PM [facility] Final Diagnosis Specimen A. 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 The specimen consists of a punch biopsy measuring 6x6x6 mm, bisected. Jar 0. 2 3:11 PM [facility]ERMAT[facility] Microscopic Description Specimen A. SKIN, plantar right heel: There is digitated epidermal hyperplasia, hypergranulosis, vacuolated granular layer cells, and compact hyperorthokeratosis . Focal endophytic features are present. 2 3:11 PM [facility]ER[facility]ATH[facility] Disclaimer An external and internal positive and negative controls are appropriate for the histochemical, immunohistochemical and immunofluorescence stain(s) in this case (if any), except where stated explicitly. The performance characteristics of the stain(s) cited in this report were developed and its performance characteristic determined by the Dermatopathology Laboratory at [facility], directed by Dr. Christnie Zapata. These tests need not be, and therefore are not, approved by the [place] Food and Drug Administration. The tests are used for clinical purposes. Billing Codes Specimen Charges Stain Charges 14135 1 2 3:11 PM [facility]ERMATOPATH[facility] Embedded Images 2 3:11 PM [facility]ERMATOPATH[facility]Y LABOR[facility]ORY Pathology/Cytolog y TISSUE SPECIMEN FROM SKIN / Unknown 02/19/2022 02/21/2022 6:54 AM SHOP LEAD Dashawn Hou MD LAB - PATHOLOGY/CYTO LOGY ORDERABLES DERMATOPATHOLOGY LABORATORY [facility] - Department of Dermatology [facility] [address] [place] [address], [address] [phone] documented in this encounter Visit Diagnoses Not on filedocumented in this encounter
--- OUTSIDE RECORDS SUMMARY | 2024-03-03 12:42 | XMS_ITS | Encounter Summary ---
Author Organization [facility] Address [address] [place] [address] Phone Care Team Providers Care Senior Technical Trainer Name Role Phone Jaylon Gudino MD Primary Care Provider Encounter Details Date Type Department Care Team (Late st Contact Info) Description 01/18/2024 10:30 AM COPING MACHINE OPERATOR Lab [facility] Medical Group - Internal Medicine - [place] [address] [place] [address] [facility] Elevated liver enzymes Discharge Disposition: Discharged to [...] Recorded In the past 12 months has [employer], gas, oil, or water [employer] threatened to shut off services in your home? No 04/20/2023 Social Connection and Isolat ion Panel [NHANES] Answer Date Recorded In a typical week, how many times do you talk on the phone with family, friends, or neighbors? More than three times a week 04/20/2023 Frequency of Social Gatherin gs with Friends and Family Not on file 04/20/2023 Attends Jainism Services Not on file 04/20 Active Member [...] Score - Questions 1-9 0 04/02 [facility] [place] of Occupat ional Health - Occupational Stress [...] well without incident. Drawn from left AC NG MACHINE OPERATOR documented in this encounter Plan of Treatment Upcoming Encounters Date Type Department Care Team (Late st Contact Info) Description 04/25/2024 9:30 AM COPING MACHINE OPERATOR Office Visit [facility] - [place] [address] [place] [place] [address] Jaylon Gudino MD [address] [place] [address] documented as of this encounter Procedures Procedure Name Priority Date/Time Associated Diagnosis Comments HEPATIC FUNCTION PANEL Routine 01/18/2024 10:13 AM COPING MACHINE OPERATOR Elevated liver enzymes documented in this encounter Results * (ABNORMAL) HEPATIC FUNCTION PANEL (01/18/2024 10:13 AM COPING MACHINE OPERATOR) T BILI 0.5 0.2 - 1.2 mg/dL 01/18/2024 4:10 PM COPING MACHINE OPERATOR [facility] BILIRUBIN,DIRECT 0.1 0.0 - 0.5 mg/dL 01/18/2024 4:10 PM COPING MACHINE OPERATOR [facility] ALKALINE PHOSPHATASE 65 40 - 150 U/L 01/18/2024 4:10 PM COPING MACHINE OPERATOR [facility] SGOT (AST) 40(H) 5 - 34 U/L 01/18/2024 4:10 PM COPING MACHINE OPERATOR [facility] SGPT (ALT) 42 0 - 55 U/L 01/18/2024 4:10 PM COPING MACHINE OPERATOR [facility] TOTAL PROTEIN 7.4 6.3 - 8.2 g/dL 01/18/2024 4:10 PM COPING MACHINE OPERATOR [facility] ALBUMIN 4.7 3.5 - 5.0 g/dL 01/18/2024 4:10 PM COPING MACHINE OPERATOR [facility] Blood Venipuncture / Unknown 01/18/2024 10:13 AM COPING MACHINE OPERATOR 01/18/2024 10:18 AM COPING MACHINE OPERATOR Jaylon Gudino MD CHEMISTRY ORDERABLES Final Result [facility] [address] [place] [address] documented in this encounter Visit Diagnoses Diagnosis Elevated liver enzymes Nonspecific elevation of levels of transaminase or lactic acid dehydrogenase (LDH) documented in this encounter Additional Health Concerns Assessment Noted Time PHQ-9 Depression Total Score: 0 04/20/19 24 9:50 AM COPING MACHINE OPERATOR documented as of this encounter Care Teams Senior Technical Trainer Relationship Specialty Start Date End Date Jaylon Gudino MD [address] [place] [address] PCP - General Internal Medicine 01/16/16 documented as of this encounter
--- OUTSIDE RECORDS SUMMARY | 2024-03-03 12:42 | XMS_ITS | Encounter Summary ---
Author Organization [facility] Address [address] [place] [address] Phone Care Team Providers Care Sinter Feeder Name Role Phone Jaylon Gudino MD Primary Care Provider [phone] Reason for Visit * Reason Comments Medication Refill Encounter Details Date Type Department Care Team (Late st Contact Info) Description 07/18/2023 Refill [facility] Medical Group - Internal Medicine - [place] [address] [place] [address] Jaylon Gudino MD [address] [place] [address] Medication Refill Social History Tobacco Use Types Packs/Day Years Used Date Smoking Tobacco: Former Cigarettes 1 10 Passive Smoke Exposure: Past Smokeless Tobacco: Never Alcohol Use Standard Drinks/Week Comments No 0 (1 standard drink = 0.6 oz pur e alcohol) [facility] Utilities Answer Date Recorded In the past 12 months has [employer] electric, gas, oil, or water company threatened [...] and Family Not on file 04/20/2023 Attends Orthodoxy Services Not on file 04/20 Active Member [...] Total Score - Questions 1-9 0 04/02 [facility] [place] of Occupat ional Health - Occupational Stress [...] [place] 09/29/22 Office Visit Jaylon Gudino MD [facility] [place] Showing recent visits within past 365 days [...] st Contact Info) Description 04/25/2024 9:30 AM FRUIT HARVESTER MACHINE OPERATOR Office Visit [facility] - [facility] - [place] [address] [place] [phone] Jaylon Gudino MD [address] [place] [address] documented as of this encounter Visit Diagnoses Diagnosis Elevated TSH Other abnormal blood chemistry documented in this encounter Additional Health Concerns Assessment Noted Time PHQ-9 Depression Total Score: 0 04/20/19 9:50 AM FRUIT HARVESTER MACHINE OPERATOR documented as of this encounter Care Teams Sinter Feeder Relationship Specialty Start Date End Date Jaylon Gudino MD [address] [place] [address] PCP - General Internal Medicine 01/16/16 documented as of this encounter
--- OUTSIDE RECORDS SUMMARY | 2024-03-03 12:42 | XMS_ITS | Encounter Summary ---
Author Organization [facility] Address [address] [place] [address] Phone Care Team Providers Care Iv Therapy Nurse Name Role Phone Jaylon Gudino MD Primary Care Provider Reason for Visit * Reason Comments Medication Refill Encounter Details Date Type Department Care Team (Late st Contact Info) Description 05/21/2023 Refill [facility] Medical Group - Internal Medicine - [place] [address] [place] [address] Claudia Sevilla, [facility] [address] [place] [address] Medication Refill Social History Tobacco Use Types Packs/Day Years Used Date Smoking Tobacco: Former Cigarettes 1 10 Passive Smoke Exposure: Past Smokeless Tobacco: Never Alcohol Use Standard Drinks/Week Comments No 0 (1 standard drink = 0.6 oz pur e alcohol) [facility] Utilities Answer Date Recorded In the past 12 months has [employer] electric, gas, oil, or water company threatened [...] 04/20/23 Office Visit Jaylon Gudino MD [facility] [place] 09/29/22 Office Visit Jaylon Gudino MD [facility] Showing recent visits within past 365 [...] st Contact Info) Description 04/25/2024 9:30 AM BOARD HANDLER [facility] Visit [facility] [place] [address] [place] [address] Jaylon Gudino MD [address] [place] [address] documented as of this encounter Visit Diagnoses Not on filedocumented in this encounter Additional Health Concerns Assessment Noted Time PHQ-9 Depression Total Score: 0 04/20/19 24 9:50 AM BOARD HANDLER documented as of this encounter Care Teams Iv Therapy Nurse Relationship Specialty Start Date End Date Jaylon Gudino MD [address] [place] [address] PCP - General Internal Medicine 01/16/16 documented as of this encounter
--- OUTSIDE RECORDS SUMMARY | 2024-03-03 12:43 | XMS_ITS | Encounter Summary ---
Author Organization [facility] Address [address] [place] [address] Phone Care Team Providers Care Tobacco Weigher Name Role Phone Jaylon Gudino MD Primary Care Provider [phone] Reason for Visit * Reason Onset Date Comments Results 10/23/2022 Encounter Details Date Type Department Care Team (Late st Contact Info) Description 10/23/2022 Telephone [facility] - Internal Medicine - [place] [address] [place] [address] Jaylon Gudino MD [address] [facility] [place] [address] Results Social History Tobacco Use [...] Contact Info) Description 04/25/2024 9:30 AM DIRECTOR ORANGE Office Visit [facility] - Internal Medicine [place] [address] [place] [address] Jaylon Gudino MD [address] [place] [address] documented as of this encounter Visit Diagnoses Not on filedocumented in this encounter Additional Health Concerns Assessment Noted Time PHQ-9 Depression Total Score: 0 04/17/19 21 9:00 AM DIRECTOR ORANGE documented as of this encounter Care Teams Tobacco Weigher Relationship Specialty Start Date End Date Jaylon Gudino MD [address] [place] [address] PCP - General Internal Medicine 01/16/16 documented as of this encounter
--- OUTSIDE RECORDS SUMMARY | 2024-03-03 12:43 | XMS_ITS | Encounter Summary ---
Author Organization [facility] Address [address] [place] [address] Phone Care Team Providers Care Beverage Specialist Name Role Phone Jaylon Gudino MD Primary Care Provider [phone] Reason for Visit * Reason Comments Medication Refill Encounter Details Date Type Department Care Team (Late st Contact Info) Description 10/06/2022 Refill [facility] Medical Group - Internal Medicine - [place] [address] [place] [address] Jaylon Gudino MD [address] [facility] [place] [address] Medication Refill Social History Tobacco Use Types [...] Dept 09/29/22 Office Visit [facility] [place] 03/[facility]/22 Office Visit [facility] [place] 02/06/22 Office Visit Claudia Sevilla, [facility] [place] Showing recent visits within past [...] st Contact Info) Description 04/25/2024 9:30 AM ARCHITECTURAL RENDERER Office Visit [facility] Medical Group - Internal Medicine - [place] [address] [place] [address] Jaylon Gudino MD [address] [place] [address] documented as of this encounter Visit Diagnoses Not on filedocumented in this encounter Additional Health Concerns Assessment Noted Time PHQ-9 Depression Total Score: 0 04/17/19 21 9:00 AM ARCHITECTURAL RENDERER documented as of this encounter Care Teams Beverage Specialist Relationship Specialty Start Date End Date Jaylon Gudino MD [address] [place] [address] PCP - General Internal Medicine 01/16/16 documented as of this encounter
--- OUTSIDE RECORDS SUMMARY | 2024-03-03 12:43 | XMS_ITS | Encounter Summary ---
Author Organization [facility] Address [address] [place] [address] Phone Care Team Providers Care Car Wiper Name Role Phone Jaylon Gudino MD Primary Care Provider [phone] Reason for Visit * Reason Comments Medication Refill Encounter Details Date Type Department Care Team (Late st Contact Info) Description 04/06/2023 Refill [facility] Medical Group - Internal Medicine - [place] [address] [place] [phone] Jaylon Gudino MD [address] [facility] [address] Medication Refill Social History Tobacco Use Types [...] AM CST Medication([facility]) [facility] [...] Dept 09/29/22 Office Visit Jay[facility]ud[facility] MD [facility] [place] Showing recent visits within past 365 days and meeting all other requirements Future Appointments Date Type Provider Dept 04/20/23 Appointment Jaylon Gudino MD [facility] [place] Showing future appointments within next 90 days and meeting all other requirements Passed - GFR on record in past 12 months GFR, EST. NONAFRICAN Date Value Ref Range Status 09/29/2022 58 (L) >=60 Final ERY ENGINEER documented in this encounter Plan of Treatment Upcoming Encounters Date Type Department Care Team (Late st Contact Info) Description 04/25/2024 9:30 AM BATTERY ENGINEER Office Visit [facility] Medical Group - Internal Medicine - [place] [address] [place] [phone] Jaylon Gudino MD [address] [place] [address] documented as of this encounter Visit Diagnoses Not on filedocumented in this encounter Additional Health Concerns Assessment Noted Time PHQ-9 Depression Total Score: 0 04/17/19 9:00 AM BATTERY ENGINEER documented as of this encounter Care Teams Car Wiper Relationship Specialty Start Date End Date Jaylon Gudino MD [address] [place] [address] PCP - General Internal Medicine 01/16/16 documented as of this encounter
--- OUTSIDE RECORDS SUMMARY | 2024-03-03 12:43 | XMS_ITS | Encounter Summary ---
Author Organization [facility] Address [address] [place] [address] Phone Care Team Providers Care Digital Learning Platforms Manager Name Role Phone Jaylon Gudino MD Primary Care Provider Reason for Visit * Reason Comments Medication Refill Encounter Details Date Type Department Care Team (Late st Contact Info) Description 02/19/2023 Refill [facility] Medical Group - Internal Medicine - [place] [address] [place] [phone] Jaylon Gudino MD [address] [facility] [address] Medication Refill Social History Tobacco Use Types [...] Telephone Encounter - Luzma Liu RN - 02/20/2023 8:56 AM CST [...] Office Visit Jaylon Gudino MD [facility] [place] 03/31/22 Office Visit Jaylon Gudino MD [facility] [place] Showing recent visits within past 365 days and meeting all other requirements Future Appointments Date Type Provider Dept 04/06/23 Appointment Jaylon Gudino MD [facility] [place] Showing future appointments within next 90 days [...] Value Ref Range Status 09/29/2022 No Final START COORDINATOR documented in this encounter Plan of Treatment Upcoming Encounters Date Type Department Care Team (Late st Contact Info) Description 04/25/2024 9:30 AM HEAD START COORDINATOR [facility] [address] [place] [address] Jaylon Gudino MD [address] [place] [address] documented as of this encounter Visit Diagnoses Not on filedocumented in this encounter Additional Health Concerns Assessment Noted Time PHQ-9 Depression Total Score: 0 04/17/19 9:00 AM HEAD START COORDINATOR documented as of this encounter Care Teams Digital Learning Platforms Manager Relationship Specialty Start Date End Date Jaylon Gudino MD [address] [place] [address] PCP - General Internal Medicine 01/16/16 documented as of this encounter
--- OUTSIDE RECORDS SUMMARY | 2024-03-03 12:43 | XMS_ITS | Encounter Summary ---
Author Organization [facility] Address [address] [place] [address] Phone Care Team Providers Care Yarn Examiner Name Role Phone Jaylon Gudino MD Primary Care Provider [phone] Reason for Referral * Radiology Services (Routine) - Closed Specialty Diagnoses / Procedures Referred By Contac t Referred To Contact Radiology Diagnoses Infrarenal abdominal aortic aneurysm (AAA) without rupture (HCC) Procedures US AORTA WITH DOPPLER LIMITED Jaylon Gudino MD [address] [place] [address] Phone: tel: fax: Referral ID Status Reason Start Date Expiration Date Visits Re quested Visits Authorized [id number] Closed 09/29/2022 1 1 Reason for Visit * Radiology Services (Routine) - Closed Specialty Diagnoses / Procedures Referred By Lilly kraft Referred To Contact Radiology Diagnoses Infrarenal abdominal aortic aneurysm (AAA) without rupture (HCC) Procedures US AORTA WITH DOPPLER LIMITED Jayoln Gudino MD [address] [place] [address] Phone: tel: fax: Referral ID Status Reason Start Date Expiration Date Visits Re quested Visits Authorized [id number] Closed 09/29/2022 1 1 Encounter Details Date Type Department Care Team (Late st Contact Info) Description 10/22/2022 8:08 AM CDT - 10/22/2022 11:59 PM CDT Hospital Encounter [facility] Ultrasound [address] [place] [address] Jaylon Gudino MD [address] [place] [address] Discharge Disposition: Discharged to home or Selfcare [...] st Contact Info) Description 04/25/2024 9:30 AM LOBBY PORTER [facility] Visit [facility] Internal Medicine - [place] [address] [place] [address] Jaylon Gudino MD [address] [place] [address] documented as of this encounter Procedures Procedure [...] PM T: ??10/22/2022 5:04 PM Report ID: [id number] Reading Location: ??[id number] Procedure Note Dheeraj Goznalez Jr., MD - 10/22/2022 EXAM DESCRIPTION: US [...] Dheeraj Gonzalez M.D. CH: CH Report ID: [id number] Reading Location: [id number] IMPRESSION: Mild aneurysmal dilatation of the proximal [...] Total Score: 0 04/17/19 21 9:00 AM LOBBY PORTER documented as of this encounter Care Teams Yarn Examiner Relationship Specialty Start Date End Date Jaylon Gudino MD [address] [place] [address] PCP - General Internal Medicine 01/16/16 documented as of this encounter
--- OUTSIDE RECORDS SUMMARY | 2024-03-03 12:43 | XMS_ITS | Encounter Summary ---
Author Organization [facility] [employer] Care Team Providers Care Cosmetics Demonstrator Name Role Phone Jaylon Gudino MD Primary Care Provider [phone] Encounter Details Date Type Department Care Team [...] st Contact Info) Description 04/25/2024 9:30 AM VARNISH FILTERER Office Visit [facility] Medical Group - Internal Medicine - [place] [address] [place] [phone] Jaylon Gudino MD [address] [place] [address] documented as of this encounter Visit Diagnoses Not on filedocumented in this encounter Additional Health Concerns Assessment Noted Time PHQ-9 Depression Total Score: 0 04/17/19 21 9:00 AM VARNISH FILTERER documented as of this encounter Care Teams Cosmetics Demonstrator Relationship Specialty Start Date End Date Jaylon Gudino MD [address] [place] [address] PCP - General Internal Medicine 01/16/16 documented as of this encounter
--- OUTSIDE RECORDS SUMMARY | 2024-03-03 12:43 | XMS_ITS | Encounter Summary ---
Author Organization [facility] Address [address] [place] [address] Phone Care Team Providers Care Regional Marketing Manager Name Role Phone Jaylon Gudino MD Primary Care Provider Encounter Details Date Type Department Care Team (Late st Contact Info) Description 10/02/2022 Telephone [facility] - [place] [address] [place] [address] Jaylon Gudino MD [address] [place] [address] Social History Tobacco Use Types [...] Contact Info) Description 04/25/2024 9:30 AM DIRECTOR CLOUD TRANSFORMATION Office Visit [facility] - Internal Medicine - [place] [address] [place] [address] Jaylon Gudino MD [address] [place] [address] documented as of this encounter Visit Diagnoses Not on filedocumented in this encounter Additional Health Concerns Assessment Noted Time PHQ-9 Depression Total Score: 0 04/17/19 21 9:00 AM DIRECTOR CLOUD TRANSFORMATION documented as of this encounter Care Teams Regional Marketing Manager Relationship Specialty Start Date End Date Jaylon Gudino MD [address] [place] [address] PCP - General Internal Medicine 01/16/16 documented as of this encounter
--- OUTSIDE RECORDS SUMMARY | 2024-03-03 12:43 | XMS_ITS | Encounter Summary ---
Author Organization [facility] Address [address] [place] [address] Phone Care Team Providers Care Merchandise Planner Name Role Phone Jaylon Gudino MD Primary Care Provider Encounter Details Date Type Department Care Team (Late st Contact Info) Description 10/02/2022 Telephone [facility] - Internal Medicine - [place] [address] [place] [address] Jaylon Gudino MD [address] [place] [address] Social History Tobacco Use Types [...] st Contact Info) Description 04/25/2024 9:30 AM ROSTER CLERK [facility] Visit [facility] - [facility] - [place] [address] [place] [address] Jaylon Gudino MD [address] [place] [address] documented as of this encounter Visit Diagnoses Not on filedocumented in this encounter Additional Health Concerns Assessment Noted Time PHQ-9 Depression Total Score: 0 04/17/19 21 9:00 AM ROSTER CLERK documented as of this encounter Care Teams Merchandise Planner Relationship Specialty Start Date End Date Jaylon Gudino MD [address] [place] [address] PCP - General Internal Medicine 01/16/16 documented as of this encounter
--- OUTSIDE RECORDS SUMMARY | 2024-03-03 12:43 | XMS_ITS | Encounter Summary ---
Author Organization [facility] [employer] Care Team Providers Care Sprinkler Installer Name Role Phone Jaylon Gudino MD Primary Care Provider [phone] Encounter Details Date Type Department Care Team [...] Info) Description 04/25/2024 9:30 AM HEAD OF SALES Office Visit [facility] Medical Group - Internal Medicine - [place] [address] [place] [phone] Jaylon Gudino MD [address] [place] [address] documented as of this encounter Visit Diagnoses Not on filedocumented in this encounter Additional Health Concerns Assessment Noted Time PHQ-9 Depression Total Score: 0 04/17/19 21 9:00 AM HEAD OF SALES documented as of this encounter Care Teams Sprinkler Installer Relationship Specialty Start Date End Date Jaylon Gudino MD [address] [place] [address] PCP - General Internal Medicine 01/16/16 documented as of this encounter
--- OUTSIDE RECORDS SUMMARY | 2024-03-03 12:43 | XMS_ITS | Encounter Summary ---
Author Organization [facility] Address [address] [place] [address] Phone Care Team Providers Care Casing Material Weigher Name Role Phone Jaylon Gudino MD Primary Care Provider Reason for Visit * Reason Comments Medication Refill Encounter Details Date Type Department Care Team (Late st Contact Info) Description 12/23/2022 Refill [facility] Medical Group - Internal Medicine - [place] [address] [place] [phone] Jaylon Gudino MD [address] [facility] [place] [address] Medication Refill Social History Tobacco Use Types [...] Dept 09/29/22 Office Visit Jaylon Gudino MD [facility] 03/31/22 Office Visit Jaylon Gudino MD [facility] [place] 02/06/22 Office Visit Claudia Sevilla PAC [facility] Showing recent visits within past 365 [...] st Contact Info) Description 04/25/2024 9:[address]GE [facility] Visit [facility] - [place] [address] [place] [address] Jaylon Gudino MD [address] [place] [address] documented as of this encounter Visit Diagnoses Not on filedocumented in this encounter Additional Health Concerns Assessment Noted Time PHQ-9 Depression Total Score: 0 04/17/19 21 9:[address] JUDGE documented as of this encounter Care Teams Casing Material Weigher Relationship Specialty Start Date End Date Jaylon Gudino MD [address] [place] [address] PCP - General Internal Medicine 01/16/16 documented as of this encounter
--- OUTSIDE RECORDS SUMMARY | 2024-03-03 12:43 | XMS_ITS | Encounter Summary ---
Author Organization [facility] Address [address] [place] [address] Phone Care Team Providers Care Office Helper Clerical Name Role Phone Jaylon Gudino MD Primary Care Provider Reason for Visit * Reason Comments Medication Refill Encounter Details Date Type Department Care Team (Late st Contact Info) Description 12/22/2022 Refill [facility] Medical Group - Internal Medicine - [place] [address] [place] [phone] Jaylon Gudino MD [address] [facility] [place] [address] Medication Refill Social History Tobacco Use Types [...] AM CDT Medication(s) refilled and signed per [facility] Chronic Medication Refill Standing Order for Pediatricand [...] Dept 09/29/22 Office Visit Jaylon Gudino MD [facility] [place] 03/31/22 Office Visit Jaylon Gudino MD [facility] [place] 02/06/22 Office Visit Claudia Sevilla [facility] [place] Showing recent visits within past 365 days and meeting all other requirements Future Appointments No visits were found meeting these conditions. Showing future appointments within next 90 days and meeting all other requirements documented in this encounter Plan of Treatment Upcoming Encounters Date Type Department Care Team (Late st Contact Info) Description 04/25/2024 9:30 AM BIOLOGY TEACHER Office Visit [facility] Medical Group - Internal Medicine - [place] [address] [place] [address] Jaylon Gudino MD [address] [place] [address] documented as of this encounter Visit Diagnoses Not on filedocumented in this encounter Additional Health Concerns Assessment Noted Time PHQ-9 Depression Total Score: 0 04/17/19 21 9:00 AM BIOLOGY TEACHER documented as of this encounter Care Teams Office Helper Clerical Relationship Specialty Start Date End Date Jaylon Gudino MD [address] [place] [address] PCP - General Internal Medicine 01/16/16 documented as of this encounter
--- OUTSIDE RECORDS SUMMARY | 2024-03-03 12:43 | XMS_ITS | Encounter Summary ---
Author Organization [facility] Address [address] [place] [address] Phone Care Team Providers Care Facilities Management Executive Name Role Phone Jaylon Gudino MD Primary Care Provider Encounter Details Date Type Department Care Team (Late st Contact Info) Description 11/13/2022 Telephone [facility] - Internal Medicine - [place] [address] [place] [address] Jaylon Gudino MD [address] [place] [address] Social History Tobacco Use Types [...] st Contact Info) Description 04/25/2024 9:30 AM RELIEF COOK Office Visit [facility] [place] [address] [place] [address] Jaylon Gudino MD [address] [place] [address] documented as of this encounter Visit Diagnoses Not on filedocumented in this encounter Additional Health Concerns Assessment Noted Time PHQ-9 Depression Total Score: 0 04/17/19 21 9:00 AM RELIEF COOK documented as of this encounter Care Teams Facilities Management Executive Relationship Specialty Start Date End Date Jaylon Gudino MD [address] [place] [address] PCP - General Internal Medicine 01/16/16 documented as of this encounter
--- OUTSIDE RECORDS SUMMARY | 2024-03-03 12:43 | XMS_ITS | Encounter Summary ---
Author Organization [facility] Address [address] [place] [address] Phone Care Team Providers Care Capacitor Tester Name Role Phone Jaylon Gudino MD Primary Care Provider Reason for Visit * Reason Comments Medication Refill Encounter Details Date Type Department Care Team (Late st Contact Info) Description 11/15/2022 Refill [facility] Medical Group - Internal Medicine - [place] [address] [place] [address] Jaylon Gudino MD [address] [facility] [place] [address] Medication Refill Social History Tobacco Use Types [...] Dept 09/29/22 [facility] [place] 03/31/22 Office Visit Jaylon Gudino MD [facility] [place] 02/06/22 Office Visit Claudia Sevilla PAC [facility] [place] Showing recent visits within past 365 days [...] st Contact Info) Description 04/25/2024 9:30 AM HIGH SPEED PRINTER OPERATOR Office Visit [facility] - Internal Medicine [facility] [address] [place] [address] Jaylon Gudino MD [address] [place] [address] documented as of this encounter Visit Diagnoses Not on filedocumented in this encounter Additional Health Concerns Assessment Noted Time PHQ-9 Depression Total Score: 0 04/17/19 21 9:00 AM HIGH SPEED PRINTER OPERATOR documented as of this encounter Care Teams Capacitor Tester Relationship Specialty Start Date End Date Jaylon Gudino MD [address] [place] [address] PCP - General Internal Medicine 01/16/16 documented as of this encounter
--- OUTSIDE RECORDS SUMMARY | 2024-03-03 12:43 | XMS_ITS | Encounter Summary ---
Author Organization [facility] Address [address] [place] [address] Phone Care Team Providers Care Fast Food Cashier Name Role Phone Jaylon Gudino MD Primary Care Provider Encounter Details Date Type Department Care Team (Late st Contact Info) Description 10/06/2022 Telephone [facility] - Internal Medicine - [place] [address] [place] [address] Jaylon Gudino MD [address] [place] [address] Social History Tobacco Use [...] st Contact Info) Description 04/25/2024 9:30 AM LINE REPAIRER Office Visit [facility] - Internal Medicine [facility] [address] [place] [address] Jaylon Gudino MD [address] [place] [address] documented as of this encounter Visit Diagnoses Not on filedocumented in this encounter Additional Health Concerns Assessment Noted Time PHQ-9 Depression Total Score: 0 04/17/19 21 9:00 AM LINE REPAIRER documented as of this encounter Care Teams Fast Food Cashier Relationship Specialty Start Date End Date Jaylon Gudino MD [address] [place] [address] PCP - General Internal Medicine 01/16/16 documented as of this encounter
--- OUTSIDE RECORDS SUMMARY | 2024-03-03 12:43 | XMS_ITS | Encounter Summary ---
Author Organization [facility] Address [address] [place] [address] Phone Care Team Providers Care Item Repair Manager Name Role Phone Jaylon Gudino MD Primary Care Provider [phone] Reason for Visit * Reason Comments Medication Refill Encounter Details Date Type Department Care Team (Late st Contact Info) Description 03/10/2023 Refill [facility] Medical Group - Internal Medicine - [place] [address] [place] [phone] Jaylon Gudino MD [address] [facility] [place] [address] Medication Refill Social History Tobacco Use Types [...] [place] 03/31/22 [facility] [place] Showing recent visits within past 365 days and meeting all other requirements Future Appointments Date Type Provider Dept 04/06/23 Appointment Jaylon Gudino MD [facility] [place] Showing future appointments within next 90 days and meeting all other requirements L DRAFTSMAN documented in this encounter Plan of Treatment Upcoming Encounters Date Type Department Care Team (Late st Contact Info) Description 04/25/2024 9:30 AM CIVIL DRAFTSMAN Office Visit [facility] Medical [facility] - Internal Medicine [facility] [address] [place] [address] Jaylon Gudino MD [address] [place] [address] documented as of this encounter Visit Diagnoses Not on filedocumented in this encounter Additional Health Concerns Assessment Noted Time PHQ-9 Depression Total Score: 0 04/17/19 21 9:00 AM CIVIL DRAFTSMAN documented as of this encounter Care Teams Item Repair Manager Relationship Specialty Start Date End Date Jaylon Gudino MD [address] [place] [address] PCP - General Internal Medicine 01/16/16 documented as of this encounter
--- OUTSIDE RECORDS SUMMARY | 2024-03-03 12:43 | XMS_ITS | Encounter Summary ---
Author Organization [facility] Address [address] [place] [address] Phone Care Team Providers Care Rehab Aide Name Role Phone Jaylon Gudino MD Primary Care Provider Encounter Details Date Type Department Care Team (Late st Contact Info) Description 11/13/2022 3:30 PM CDT Immunization [facility] Medical Group - Internal Medicine - [place] [address] [facility] [phone] Encounter for immunization (Primary Dx) Discharge Disposition: [...] this encounter Progress Notes * India Terrell, TELEVISION SERVICE ENGINEER - 11/13/2022 3:30 PM CDT Bacilio presents today for immunization/injection of Influenza, ordered by Dr. Jaylon Gudino on 11/13/2022 was administered without incident. Patient tolerated it well. See immunizations/injections activity. documented in this encounter Plan of Treatment Upcoming Encounters Date Type Department Care Team (Late st Contact Info) Description 04/25/2024 9:30 AM PROOF PLATE MAKER Office Visit [facility] Medical Group - Internal Medicine - [place] [address] [place] [phone] Jaylon Gudino MD [address] [place] [address] documented as of this encounter Visit Diagnoses Diagnosis Encounter for immunization- Primary Need for other specified prophylactic vaccination against single bacterial disease documented in this encounter Additional Health Concerns Assessment Noted Time PHQ-9 Depression Total Score: 0 04/17/19 21 9:00 AM PROOF PLATE MAKER documented as of this encounter Care Teams Rehab Aide Relationship Specialty Start Date End Date Jaylon Gudino MD [address] [place] [address] PCP - General Internal Medicine 01/16/16 documented as of this encounter
--- OUTSIDE RECORDS SUMMARY | 2024-03-03 12:43 | XMS_ITS | Encounter Summary ---
Author Organization [facility] Address [address] [place] [address] Phone Care Team Providers Care Lead Press Operator Name Role Phone Jaylon Gudino MD Primary Care Provider [phone] Reason for Visit * Reason Comments Medication Refill Encounter Details Date Type Department Care Team (Late st Contact Info) Description 03/17/[address] [facility] Medical Group - Internal Medicine - [place] [address] [place] [phone] Jaylon Gudino MD [address] [facility] [place] [address] Medication Refill Social History Tobacco Use Types [...] PM CST Medication(s) refilled and signed per [facility] Chronic Medication Refill Standing Order for [...] [place] 03/31/22 [facility] [place] Showing recent visits within past 365 days and meeting all other requirements Future Appointments Date Type Provider Dept 04/06/23 Appointment [facility] [place] Showing future appointments within next 90 days and meeting all other requirements WEEDER documented in this encounter Plan of Treatment Upcoming Encounters Date Type Department Care Team (Late st Contact Info) Description 04/25/2024 9:30 AM BULB WEEDER Office Visit [facility] Medical Group - Internal Medicine [place] [address] [place] [address] Jaylon Gudino MD [address] [place] [address] documented as of this encounter Visit Diagnoses Not on filedocumented in this encounter Additional Health Concerns Assessment Noted Time PHQ-9 Depression Total Score: 0 04/17/19 21 9:00 AM BULB WEEDER documented as of this encounter Care Teams Lead Press Operator Relationship Specialty Start Date End Date Jaylon Gudino MD [address] [place] [address] PCP - General Internal Medicine 01/16/16 documented as of this encounter
--- OUTSIDE RECORDS SUMMARY | 2024-03-03 12:44 | XMS_ITS | Encounter Summary ---
Author Organization [facility] Address [address] [place] [address] Phone Care Team Providers Care Horizontal Drill Operator Name Role Phone Jaylon Gudino MD Primary Care Provider Reason for Visit * Reason Comments Medication Refill Encounter Details Date Type Department Care Team (Late st Contact Info) Description 08/15/2022 Refill [facility] Internal Medicine - [place] [address] [place] [address] Jaylon Gudino MD [address] [facility] [place] [address] Medication Refill Social History Tobacco Use Types [...] [place] 02/06/22 Office Visit Claudia Sevilla PAC [facility] [place] 09/23/21 [facility] [place] Showing recent visits within past 365 days and meeting all other requirements Future Appointments Date Type Provider Dept 09/29/22 Appointment Jyalon Gudino MD [facility] [place] Showing future appointments within next 90 days [...] st Contact Info) Description 04/25/2024 9:30 AM CONFERENCE CENTER COORDINATOR [facility] Visit [facility] - [place] [address] [place] [phone] Jaylon Gudino MD [address] [place] [address] documented as of this encounter Visit Diagnoses Not on filedocumented in this encounter Additional Health Concerns Assessment Noted Time PHQ-9 Depression Total Score: 0 04/17/19 21 9:00 AM CONFERENCE CENTER COORDINATOR documented as of this encounter Care Teams Horizontal Drill Operator Relationship Specialty Start Date End Date Jaylon Gudino MD [address] [place] [address] PCP - General Internal Medicine 01/16/16 documented as of this encounter
--- OUTSIDE RECORDS SUMMARY | 2024-03-03 12:44 | XMS_ITS | Encounter Summary ---
Author Organization [facility] Address [address] [place] [address] Phone Care Team Providers Care Stacker Operator Name Role Phone Jaylon Gudino MD Primary Care Provider Encounter Details Date Type Department Care Team (Late st Contact Info) Description 12/10/2021 1:40 PM CDT Immunization [facility] Medical Group - Internal Medicine - [place] [address] [place] [address] [facility] Nurse [place] Influenza vaccine administered (Primary Dx) [...] st Contact Info) Description 04/25/2024 9:30 AM HOUSE ADMIN Office Visit [facility] - Internal Medicine - [place] [address] [place] [address] Jaylon Gudino MD [address] [place] [address] documented as of this encounter Visit Diagnoses Diagnosis Influenza vaccine administered- Primary documented in this encounter Additional Health Concerns Assessment Noted Time PHQ-9 Depression Total Score: 0 04/17/19 21 9:00 AM HOUSE ADMIN documented as of this encounter Care Teams Stacker Operator Relationship Specialty Start Date End Date Jaylon Gudino MD [address] [place] [address] PCP - General Internal Medicine 01/16/16 documented as of this encounter
--- OUTSIDE RECORDS SUMMARY | 2024-03-03 12:44 | XMS_ITS | Encounter Summary ---
Author Organization [facility] Address [address] [place] [address] Phone Care Team Providers Care Temple Meat Cutter Name Role Phone Jaylon Gudino MD Primary Care Provider Reason for Visit * Reason Onset Date Comments Results 09/24/2021 Encounter Details Date Type Department Care Team (Late st Contact Info) Description 09/24/2021 Telephone [facility] - Internal Medicine - [place] [address] [place] [address] Jaylon Gudino MD [address] [facility] [place] [address] Results Social History Tobacco Use [...] 09/24/2021 3:52 PM CDT ----- CMP, lipid, [id number]. No change in medications documented in this encounter Plan of Treatment Upcoming Encounters Date Type Department Care Team (Late st Contact Info) Description 04/25/2024 9:30 AM MERCHANDISING EXECUTION ASSOCIATE Office Visit [facility] Medical Group - Internal Medicine - [place] [address] [place] [phone] Jaylon Gudino MD [address] [place] [address] documented as of this encounter Visit Diagnoses Not on filedocumented in this encounter Additional Health Concerns Assessment Noted Time PHQ-9 Depression Total Score: 0 04/17/19 21 9:00 AM MERCHANDISING EXECUTION ASSOCIATE documented as of this encounter Care Teams Temple Meat Cutter Relationship Specialty Start Date End Date Jaylon Gudino MD [address] [place] [address] PCP - General Internal Medicine 01/16/16 documented as of this encounter
--- OUTSIDE RECORDS SUMMARY | 2024-03-03 12:44 | XMS_ITS | Encounter Summary ---
Author Organization [facility] Address [address] [place] [address] Phone Care Team Providers Care Non Emergency Services Ambulance Driver Name Role Phone Jaylon Gudino MD Primary Care Provider [phone] Reason for Visit * Reason Comments Medication Refill Encounter Details Date Type Department Care Team (Late st Contact Info) Description 03/23/[address] [facility] Medical Group - Internal Medicine - [place] [address] [place] [phone] Jaylon Gudino MD [address] [facility] [place] [place] [address] Medication Refill Social History Tobacco Use Types [...] AM CST Medication(s) [facility] [...] Dept 02/06/22 Office Visit Claudia Sevilla PAC [facility] [place] 09/23/21 Office Visit Jaylon Gudino MD [facility] [place] 03/25/21 [facility] [place] Showing recent visits within past 365 days and meeting all other requirements Future Appointments Date Type Provider Dept 03/31/22 Appointment Jaylon Gudino MD [facility] [place] Showing future appointments within next 90 days [...] Dept 02/06/22 Office Visit Claudia Sevilla PAC [facility] [place] 09/23/21 Office Visit [facility] [place] 03/25/21 Office [facility] [place] Showing recent visits within past 365 days and meeting all other requirements Future Appointments Date Type Provider Dept 03/31/22 Appointment [facility]ud[facility] MD [facility] [place] Showing future appointments within next 90 days and meeting all other requirements Passed - GFR on record in past 12 months GFR, EST. NONAFRICAN Date Value Ref Range Status 09/24/2021 >60 >=60 Final ROOM HAND documented in this encounter Plan of Treatment Upcoming Encounters Date Type Department Care Team (Late st Contact Info) Description 04/25/2024 9:30 AM WOOD ROOM HAND [facility] [address] [place] [address] Jaylon Gudino MD [address] [address] [place] [address] documented as of this encounter Visit Diagnoses Not on filedocumented in this encounter Additional Health Concerns Assessment Noted Time PHQ-9 Depression Total Score: 0 04/17/19 21 9:00 AM WOOD ROOM HAND documented as of this encounter Care Teams Non Emergency Services Ambulance Driver Relationship Specialty Start Date End Date Jaylon Gudino MD [address] [place] [address] PCP - General Internal Medicine 01/16/16 documented as of this encounter
--- OUTSIDE RECORDS SUMMARY | 2024-03-03 12:44 | XMS_ITS | Encounter Summary ---
Author Organization [facility] [employer] Care Team Providers Care School Guidance Counselor Name Role Phone Jaylon Gudino MD Primary Care Provider [phone]- [phone] Encounter Details Date Type Department Care Team [...] st Contact Info) Description 04/25/2024 9:30 AM REGIONAL CLIMATE CHANGE ANALYST Office Visit [facility] Medical Group - Internal Medicine - [place] [address] [place] [address] Jaylon Gudino MD [address] [place] [address] documented as of this encounter Visit Diagnoses Not on filedocumented in this encounter Additional Health Concerns Assessment Noted Time PHQ-9 Depression Total Score: 0 04/17/19 21 9:00 AM REGIONAL CLIMATE CHANGE ANALYST documented as of this encounter Care Teams School Guidance Counselor Relationship Specialty Start Date End Date Jaylon Gudino MD [address] [place] [address] PCP - General Internal Medicine 01/16/16 documented as of this encounter
--- OUTSIDE RECORDS SUMMARY | 2024-03-03 12:44 | XMS_ITS | Encounter Summary ---
Author Organization [facility] Address [address] [place] [address] Phone Care Team Providers Care Outside Sales Account Manager Name Role Phone Jaylon Gudino MD Primary Care Provider Reason for Visit * Reason Comments Medication Refill Encounter Details Date Type Department Care Team (Late st Contact Info) Description 05/01/2022 Refill [facility] - [place] [address] [place] [phone] Jaylon Gudino MD [address] [facility] [address] Medication Refill Social History Tobacco Use Types [...] CST Medication(s) refilled and signed per [facility] [...] Dept 03/31/22 Office Visit Jaylon Gudino MD [facility] [place] 02/06/22 Office Visit Claudia Sevilla PAC [facility] [place] 09/23/21 Office Visit Jaylon Gudino MD [facility] [place] Showing recent visits within past 365 days [...] Range Status 03/31/2022 112.8 <130 mg/dL Final T FURNACE TENDER documented in this encounter Plan of Treatment Upcoming Encounters Date Type Department Care Team (Late st Contact Info) Description 04/25/2024 9:30 AM BLAST FURNACE TENDER Office Visit [facility] Medical Group - Internal Medicine - [place] [address] [place] [address] Jaylon Gudino MD [address] [place] [address] documented as of this encounter Visit Diagnoses Not on filedocumented in this encounter Additional Health Concerns Assessment Noted Time PHQ-9 Depression Total Score: 0 04/17/19 21 9:00 AM BLAST FURNACE TENDER documented as of this encounter Care Teams Outside Sales Account Manager Relationship Specialty Start Date End Date Jaylon Gudino MD [address] [place] [address] PCP - General Internal Medicine 01/16/16 documented as of this encounter
--- OUTSIDE RECORDS SUMMARY | 2024-03-03 12:44 | XMS_ITS | Encounter Summary ---
Author Organization [facility] Address [address] [place] [address] Phone Care Team Providers Care Administration Vice President Name Role Phone Jaylon Gudino MD Primary Care Provider Reason for Visit * Reason Comments Hypertension 6 mo f/u Ear Fullness Both ears Encounter Details Date Type Department Care Team (Late st Contact Info) Description 03/31/2022 10:00 AM JACKHAMMER OPERATOR Office Visit [facility] Medical Group - Internal Medicine - [place] [address] [place] [address] Jaylon Gudino MD [address] [place] [address] Essential hypertension, benign (Primary Dx); Chronic fatigue; [...] Coronavirus/COVID-19? No / Unsure 03/31/2022 9:43 AM JACKHAMMER OPERATOR documented as of this encounter Last Filed Vital Signs Vital Sign Reading Time Taken Comments Blood Pressure 136/60 03/31/2022 10:00 AM JACKHAMMER OPERATOR Pulse 58 03/31/2022 10:00 AM JACKHAMMER OPERATOR Temperature 36.6 ??C (97.8 ??F) 03/31/2022 10:[address] Respiratory Rate - - Oxygen Saturation 97% 03/31/2022 10:00 AM JACKHAMMER OPERATOR Inhaled Oxygen Concentration - - Weight 81.6 kg (180 lb) 03/31/2022 10:00 AM JACKHAMMER OPERATOR Height 177.8 cm (5' 10 ) 03/31/2022 10:00 AM JACKHAMMER OPERATOR Body Mass Index 25.83 03/31/2022 10:00 AM JACKHAMMER OPERATOR documented in this encounter Functional Status * Question Answer Date of Assessment Author Little interest or pleasure in doing things Not at all 03/31/2022 10:00 AM JACKHAMMER OPERATOR Sang Terrell CMA Feeling down, depressed, or hopeless Not at all 03/31/2022 10:00 AM JACKHAMMER OPERATOR India Terrell CMA * Over the past 2 weeks, how often have you been bothered by any of the following problems? Question Answer Date of Assessment Author Patient Health Questionnaire -2 Score 0 03/31/2022 10:00 AM JACKHAMMER OPERATOR India Terrell CMA documented as of this [...] with the patient today: Smoking and Depression HAMMER OPERATOR * India Terrell CMA - 03/31/2022 10:00 AM CST Bacilio presents today for immunization/injection of Prevnar 20, ordered by Dr. Jaylon Gudino on 03/31/2022 was administered without incident. Patient tolerated it well. See immunizations/injections activity. HAMMER OPERATOR * India Terrell CMA - 03/31/2022 10:00 AM CST Bacilio presents for lab draw per order of Dr. Jaylon Gudino dated 03/31/2022. Specimen collected from left antecubital without incident. HAMMER OPERATOR * Jaylon Gudino MD - 03/31/2022 10:00 AM CST PROGRESS NOTE [facility] MEDICAL GROUP - INTERNAL MEDICINE [address] [place] [address] PHONE: [phone] FAX: [phone] 03/31/2022 NAME: Bacilio Ramirez, : 1945, Assessment [...] By: Jaylon Gudino MD 03/31/2022 10:45 AM JACKHAMMER OPERATOR HAMMER OPERATOR documented in this encounter Plan of Treatment Upcoming Encounters Date Type Department Care Team (Late st Contact Info) Description 04/25/2024 9:30 AM JACKHAMMER OPERATOR Office Visit [facility] - Internal Medicine - [place] [address] [place] [address] Jaylon Gudino MD [address] [place] [address] documented as of this encounter Procedures Procedure Name Priority Date/Time Associated Diagnosis Comments VITAMIN B12 Routine 03/31/2022 10:33 AM JACKHAMMER OPERATOR Chronic fatigue THYROID STIMULATING HORMONE (TSH) Routine 03/31/2022 10:33 AM JACKHAMMER OPERATOR Chronic fatigue LIPID PANEL Routine 03/31/2022 10:33 AM JACKHAMMER OPERATOR Essential hypertension, benign Mixed hyperlipidemia CMP (COMPREHENSIVE METABOLIC PANEL) Routine 03/31/2022 10:33 AM JACKHAMMER OPERATOR Essential hypertension, benign Mixed hyperlipidemia documented in this encounter Results * VITAMIN B12 (03/31/2022 10:33 AM JACKHAMMER OPERATOR) VITAMIN B12 780 243 - 894 pg/mL 03/31/2022 3:52 PM JACKHAMMER OPERATOR [facility] Blood Venipuncture / Unknown 03/31/2022 10:33 AM JACKHAMMER OPERATOR 03/31/2022 10:33 AM JACKHAMMER OPERATOR us Jaylon Gudino MD CHEMISTRY ORDERABLES Final Result Performing Organization Address [facility]/ZIP Co de Phone Number [facility] [place] [address] * (ABNORMAL) LIPID PANEL (03/31/2022 10:33 AM JACKHAMMER OPERATOR) CHOLESTEROL 181 <=200 mg/dL 03/31/2022 3:42 PM JACKHAMMER OPERATOR [facility] TRIGLYCERIDES 188(H) <150 mg/dL 03/31/2022 3:42 PM JACKHAMMER OPERATOR [facility] HDL CHOLESTEROL 68.2 >40 mg/dL 3:42 PM JACKHAMMER OPERATOR [facility] LDL 75 5 - 130 mg/dL 03/31/2022 3:42 PM JACKHAMMER OPERATOR [facility] VLDL 38 5 - 55 mg/dL 03/31/2022 3:42 PM JACKHAMMER OPERATOR [facility] CHOL/HDL RATIO 2.7 0.0 - 4.4 03/31/2022 3:42 PM JACKHAMMER OPERATOR [facility] NON-HDL CHOLESTEROL 112.8 <130 mg/dL 03/31/2022 3:42 PM JACKHAMMER OPERATOR [facility] Blood Venipuncture / Unknown 03/31/2022 10:33 AM JACKHAMMER OPERATOR 03/31/2022 10:33 AM JACKHAMMER OPERATOR Jayoln Gudino MD CHEMISTRY ORDERABLES Final Result Performing Organization Address City/[facility]/ZIP Co de Phone Number [facility] [place] [address] * (ABNORMAL) THYROID STIMULATING HORMONE (TSH) (03/31/2022 10:33 AM JACKHAMMER OPERATOR) TSH 5.400(H) 0.270 - 4.200 mIU/L 03/31/2022 3:42 PM JACKHAMMER OPERATOR [facility] Blood Venipuncture / Unknown 03/31/2022 10:33 AM JACKHAMMER OPERATOR 03/31/2022 10:33 AM JACKHAMMER OPERATOR us Jaylon Gudino MD CHEMISTRY ORDERABLES Final Result [facility] [place] [address] * (ABNORMAL) CMP (COMPREHENSIVE METABOLIC PANEL) (03/31/2022 10:33 AM JACKHAMMER OPERATOR) SODIUM 137 136 - 144 mmol/L 03/31/2022 3:42 PM JACKHAMMER OPERATOR [facility] POTASSIUM 3.9 3.5 - 5.1 mmol/L 03/31/2022 3:42 PM [facility] CHLORIDE 100 100 - 110 mmol/L 03/31/2022 3:42 PM [facility] CO2, VENOUS 25 22 - 32 mmol/L 03/31/2022 3:42 PM [facility] ANION GAP 15.9 8.0 - 20.0 mmol/L 03/31/2022 3:42 PM [facility] GLUCOSE 116(H) 70 - 99 mg/dL 03/31/2022 3:42 PM [facility] BUN 24(H) 8 - 23 mg/dL 03/31/2022 3:42 PM [facility] CREATININE, BLOOD 1.25 0.80 - 1.30 mg/dL 03/31/2022 3:42 PM [facility] BUN/CREATININE RATIO 19 12 - 20 ratio 03/31/2022 3:42 PM [facility] TOTAL PROTEIN 7.2 6.0 - 8.3 g/dL 03/31/2022 3:42 PM [facility] ALBUMIN 4.7 3.5 - 5.2 g/dL 03/31/2022 3:42 PM [facility] Comment: The colormetric methods used for the determination of Albumin may lead to falsely elevated test results in patients suffering from renal failure or insufficiency due to interference with other proteins. A/G RATIO 1.9 1.0 - 2.0 03/31/2022 3:42 PM [facility] CALCIUM 9.8 8.9 - 10.3 mg/dL 03/31/2022 3:42 PM JACKHAMMER OPERATOR [facility] T BILI 0.4 <=1.2 mg/dL 03/31/2022 3:42 PM JACKHAMMER OPERATOR [facility] SGOT (AST) 35 <=40 U/L 03/31/2022 3:42 PM JACKHAMMER OPERATOR [facility] SGPT (ALT) 26 <=41 U/L 03/31/2022 3:42 PM JACKHAMMER OPERATOR [facility] ALKALINE PHOSPHATASE 60 40 - 130 U/L 03/31/2022 3:42 PM [facility] IS THE PATIENT REQUIRED TO BE FASTING? No 03/31/2022 3:42 PM [facility] GFR, ESTIMATED 59(L) >=60 03/31/2022 3:42 PM [facility] Comment: Creatinine Clearance is the preferred criteria for selecting drug dose adjustments in renally impaired patients. ??The GFR is provided as additional pertinent clinical information. GFR is reported in mL/min/1.73 sq m. Calculation based on the Chronic Kidney Disease Epidemiology Collaboration (CKD- EPI) equation refit without adjustment for race. GFR, EST. >60 >=60 023 3:42 PM [facility] GFR, EST. NONAFRICAN 56(L) >=60 03/31/2022 3:42 PM [facility] Blood Venipuncture / Unknown 03/31/2022 10:33 AM JACKHAMMER OPERATOR 03/31/2022 10:33 AM JACKHAMMER OPERATOR us Jaylon Gudino MD CHEMISTRY ORDERABLES Final Result [facility] [place] [address] documented in this encounter Visit Diagnoses Diagnosis Essential hypertension, benign- Primary Chronic fatigue Other malaise and fatigue Mixed hyperlipidemia Encounter for immunization Need for other specified prophylactic vaccination against single bacterial disease documented in this encounter Additional Health Concerns Assessment Noted Time PHQ-9 Depression Total Score: 0 04/17/19 21 9:00 AM JACKHAMMER OPERATOR documented as of this encounter Care Teams Administration Vice President Relationship Specialty Start Date End Date Jaylon Gudino MD [address] [place] [address] PCP - General Internal Medicine 01/16/16 documented as of this encounter
--- OUTSIDE RECORDS SUMMARY | 2024-03-03 12:44 | XMS_ITS | Encounter Summary ---
Author Organization [facility] Address [address] [place] [address] Phone Care Team Providers Care Petroleum Geology Faculty Member Name Role Phone Jaylon Gudino MD Primary Care Provider [phone] Reason for Visit * Reason Comments Medication Refill Encounter Details Date Type Department Care Team (Late st Contact Info) Description 09/20/2022 Refill [facility] - [facility] - [place] [address] [place] [phone] Jaylon Gudino MD [address] [facility] [place] [address] Medication Refill Social History Tobacco Use Types [...] Dept 03/31/22 Office Visit Jaylon Gudino MD [facility] [place] 02/06/22 Office Visit Claudia Sevilla PAC [facility] [place] 09/23/21 Office Visit Jaylon Gudino MD [facility] [place] Showing recent visits within past 365 days and meeting all other requirements Future Appointments Date Type Provider Dept 09/29/22 Appointment [facility] [place] Show[facility] future appointments within next 90 days and meeting all other requirements documented in this encounter Plan of Treatment Upcoming Encounters Date Type Department Care Team (Late st Contact Info) Description 04/25/2024 9:30 AM ASSISTANT KITCHEN MANAGER Office Visit [facility] Medical Group - Internal Medicine - [place] [address] [place] [phone] Jaylon Gudino MD [address] [place] [address] documented as of this encounter Visit Diagnoses Not on filedocumented in this encounter Additional Health Concerns Assessment Noted Time PHQ-9 Depression Total Score: 0 04/17/19 21 9:00 AM ASSISTANT KITCHEN MANAGER documented as of this encounter Care Teams Petroleum Geology Faculty Member Relationship Specialty Start Date End Date Jaylon Gudino MD [address] [place] [address] PCP - General Internal Medicine 01/16/16 documented as of this encounter
--- OUTSIDE RECORDS SUMMARY | 2024-03-03 12:44 | XMS_ITS | Encounter Summary ---
Author Organization [employer] Care Team Providers Care Gas Meter Installer Name Role Phone Jaylon Gudino MD Primary Care Provider [phone] Encounter Details Date Type Department Care Team [...] Coronavirus/COVID-19? No / Unsure 03/31/2022 9:43 AM ELECTRONIC EQUIPMENT REPAIRER documented as of this encounter Functional Status [...] Questionnaire -2 Score 0 03/31/2022 10:00 AM ELECTRONIC EQUIPMENT REPAIRER India Terrell CMA documented as of this encounter Plan of Treatment Upcoming Encounters Date Type Department Care Team (Late st Contact Info) Description 04/25/2024 9:30 AM ELECTRONIC EQUIPMENT REPAIRER [facility] Visit [facility] [place] [address] [place] [address] Jaylon Gudino MD [address] [place] [address] documented as of this encounter Visit Diagnoses Not on filedocumented in this encounter Additional Health Concerns Assessment Noted Time PHQ-9 Depression Total Score: 0 04/17/19 21 9:00 AM ELECTRONIC EQUIPMENT REPAIRER documented as of this encounter Care Teams Gas Meter Installer Relationship Specialty Start Date End Date Jaylon Gudino MD [address] [place] [address] PCP - General Internal Medicine 01/16/16 documented as of this encounter
--- OUTSIDE RECORDS SUMMARY | 2024-03-03 12:44 | XMS_ITS | Encounter Summary ---
Author Organization [facility] Address [address] [place] [address] Phone Care Team Providers Care Antenna Specialist Name Role Phone Jaylon Gudino MD Primary Care Provider Reason for Visit * Reason Comments Medication Refill Encounter Details Date Type Department Care Team (Late st Contact Info) Description 03/12/2022 Refill [facility] Medical Group - Internal Medicine - [place] [address] [place] [phone] Jaylon Gudino MD [address] [facility] [place] [address] Medication Refill Social History Tobacco Use Types [...] AM CST Medication(s) refilled and signed per [facility] [...] Dept 02/06/22 Office Visit Claudia Sevilla PAC [facility] [place] 09/23/21 Office Visit Jaylon Gudino MD [facility] [place] 03/25/21 Office Visit Jaylon Gudino MD [facility] [place] Showing recent visits within past 365 days and meeting all other requirements Future Appointments Date Type Provider Dept 03/31/22 Appointment Jaylon Gudino MD [facility] [place] Showing future appointments within next 90 days and meeting all other requirements ER MACHINE documented in this encounter Plan of Treatment Upcoming Encounters Date Type Department Care Team (Late st Contact Info) Description 04/25/2024 9:30 AM LOADER MACHINE [facility] [address] [place] [address] Jaylon Gudino MD [address] [place] [address] documented as of this encounter Visit Diagnoses Not on filedocumented in this encounter Additional Health Concerns Assessment Noted Time PHQ-9 Depression Total Score: 0 04/17/19 21 9:00 AM LOADER MACHINE documented as of this encounter Care Teams Antenna Specialist Relationship Specialty Start Date End Date Jaylon Gudino MD [address] [place] [address] PCP - General Internal Medicine 11/16/16 documented as of this encounter
--- OUTSIDE RECORDS SUMMARY | 2024-03-03 12:44 | XMS_ITS | Encounter Summary ---
Author Organization [facility] [employer] Care Team Providers Care Passenger Service Representative Name Role Phone Jaylon Gudino MD Primary Care Provider [phone] Encounter Details Date Type Department Care Team [...] st Contact Info) Description 04/25/2024 9:30 AM STONE CHIMNEY MASON Office Visit [facility] Medical Group - Internal Medicine - [place] [address] [place] [phone] Jaylon Gudino MD [address] [place] [address] documented as of this encounter Visit Diagnoses Not on filedocumented in this encounter Additional Health Concerns Assessment Noted Time PHQ-9 Depression Total Score: 0 04/17/19 21 9:00 AM STONE CHIMNEY MASON documented as of this encounter Care Teams Passenger Service Representative Relationship Specialty Start Date End Date Jaylon Gudino MD [address] [place] [address] PCP - General Internal Medicine 01/16/16 documented as of this encounter
--- OUTSIDE RECORDS SUMMARY | 2024-03-03 12:44 | XMS_ITS | Encounter Summary ---
Author Organization [facility] [employer] Care Team Providers Care Solid Waste Division Supervisor Name Role Phone Jaylon Gudino MD Primary Care Provider [phone]- [phone] Encounter Details Date Type Department Care Team [...] st Contact Info) Description 04/25/2024 9:30 AM AFTERSCHOOL BABYSITTER Office Visit [facility] Medical Group - Internal Medicine - [place] [address] [place] [address] Jaylon Gudino MD [address] [place] [address] documented as of this encounter Visit Diagnoses Not on filedocumented in this encounter Additional Health Concerns Assessment Noted Time PHQ-9 Depression Total Score: 0 04/17/19 21 9:00 AM AFTERSCHOOL BABYSITTER documented as of this encounter Care Teams Solid Waste Division Supervisor Relationship Specialty Start Date End Date Jaylon Gudino MD [address] [place] [address] PCP - General Internal Medicine 01/16/16 documented as of this encounter
--- OUTSIDE RECORDS SUMMARY | 2024-03-03 12:44 | XMS_ITS | Encounter Summary ---
Author Organization [facility] Address [address] [place] [address] Phone Care Team Providers Care Boiler Shop Supervisor Name Role Phone Jaylon Gudino MD Primary Care Provider Reason for Visit * Reason Comments Generalized Weakness Joint Pain Fever For about a week Encounter Details Date Type Department Care Team (Late st Contact Info) Description 02/06/2022 9:00 AM BOWLING BALL MOLDER [facility] - [place] [address] [place] [address] Claudia Sevilla, [facility] [address] [place] [address] Arthralgia, unspecified joint (Primary Dx); [...] Comments Blood Pressure 144/60 02/06/2022 9:19 AM BOWLING BALL MOLDER Pulse 65 02/06/2022 9:19 AM BOWLING BALL MOLDER Temperature 36.6 ??C (97.9 ??F) 02/06/2022 9:19 AM CS T Respiratory Rate 14 02/06/2022 9:19 AM BOWLING BALL MOLDER Oxygen Saturation 98% 02/06/2022 9:19 AM BOWLING BALL MOLDER Inhaled Oxygen Concentration - - Weight 81.1 kg (178 lb 14.4 oz) 02/06/2022 9:19 AM BOWLING BALL MOLDER Height 177.8 cm (5' 10 ) 02/06/2022 9:19 AM BOWLING BALL MOLDER Body Mass Index 25.67 02/06/2022 9:19 AM BOWLING BALL MOLDER documented in this encounter Functional Status * Question Answer Date of Assessment Author Little interest or pleasure in doing things Not at all 02/06/2022 9:00 AM Lexii Mckeon RMA Feeling down, depressed, or hopeless Not at all 02/06/2022 9:00 AM BOWLING BALL MOLDER Lexii Chua RMA * Over the past 2 weeks, how often have you been bothered by any of the following problems? Question Answer Date of Assessment Author Patient Health Questionnaire -2 Score 0 02/06/2022 9:00 AM BOWLING BALL MOLDER Lexii Chua RMA documented as of this encounter Patient Instructions * Patient Instructions* Lexii Chua RMA - 02/06/2022 9:00 AM BOWLING BALL MOLDER Pneumonia is a serious lung infection that [...] Primary Care Physician???s office or your localpharmacy. ING BALL MOLDER documented in this encounter Progress Notes * [...] patient today: BMI, TDAP, Pneumonia and Depression ING BALL MOLDER * DiClaudia rock, PAC - 02/06/2022 9:00 [...] given to the patient. Patient (or patient charter representative) demonstrates verbal understanding of instructions given. [...] our referral team or the referring physician. ING BALL MOLDER documented in this encounter Plan of Treatment Upcoming Encounters Date Type Department Care Team (Late st Contact Info) Description 04/25/2024 9:30 AM BOWLING BALL MOLDER Office Visit [facility] - [facility] - [place] [address] [place] [phone] Jaylon Gudino MD [address] [place] [address] documented as of this encounter Procedures Procedure Name Priority Date/Time Associated Diagnosis Comments POCT SARS ANTIGEN NARDA/INFLUENZA A & B COMBINATION Routine 02/06/2022 8:50 AM BOWLING BALL MOLDER Arthralgia, unspecified joint Chest congestion Fever, unspecified fever cause documented in this encounter Results * POCT SARS ANTIGEN NARDA/INFLUENZA A & B COMBINATION (02/06/2022 8:50 AM BOWLING BALL MOLDER) POC SARS ANTIGEN NARDA Negative Negative POC SARS ANTIGEN NARDA CONTROL Map Maker Pass Rapid Influenza A PRESUMPTIVE NEGATIVE FOR THE PRESENCE OF INFLUENZA A ANTIGEN PRESUMPTIVE NEGATIVE FOR THE PRESENCE OF INFLUENZA A ANTIGEN, INDETERMINATE Rapid Influenza B PRESUMPTIVE NEGATIVE FOR THE PRESENCE OF INFLUENZA B ANTIGEN PRESUMPTIVE NEGATIVE FOR THE PRESENCE OF INFLUENZA B ANTIGEN, INDETERMINATE POC INFLUENZA CONTROL Map Maker Pass Swab NASAL STRUCTURE / Unknown 02/06/2022 8:50 AM BOWLING BALL MOLDER Claudia Sevilla PAC POINT OF CARE AURA RIGO (MANUAL) Final Result documented in this encounter Visit Diagnoses Diagnosis Arthralgia, unspecified joint- Primary Chest congestion Other symptoms involving respiratory system and chest Fever, unspecified fever cause documented in this encounter Additional Health Concerns Infection Onset Date Last Indicated Resolved Time COVID - 19 02/06/2022 02/06/2022 02/16/2022 12:1 6 AM BOWLING BALL MOLDER Assessment Noted Time PHQ-9 Depression Total Score: 0 04/17/19 21 9:00 AM BOWLING BALL MOLDER documented as of this encounter Care Teams Boiler Shop Supervisor Relationship Specialty Start Date End Date Jaylon Gudino MD [address] [place] [address] PCP - General Internal Medicine 01/16/16 documented as of this encounter
--- OUTSIDE RECORDS SUMMARY | 2024-03-03 12:44 | XMS_ITS | Encounter Summary ---
Author Organization [facility] Address [address] [place] [address] Phone Care Team Providers Care Fruit Canner Name Role Phone Jaylon Gudino MD Primary Care Provider Reason for Visit * Reason Comments Medication Refill Encounter Details Date Type Department Care Team (Late st Contact Info) Description 06/18/2022 Refill [facility] - Internal Medicine - [place] [address] [place] [phone] Jaylon Gudino MD [address] [facility] [place] [address] Medication Refill Social History Tobacco Use Types [...] Type Provider Dept 03/31/22 Office Visit Jaylon Gudnio MD [facility] [place] 02/06/22 Office Visit Claudia Sevilla [facility] [place] 09/23/21 Office Visit Jaylon Gudino MD [facility] [place] Showing recent visits within past 365 days [...] Dept 03/31/22 Office Visit Jaylon Gudino MD [facility] [place] 02/06/22 Office Visit Claudia Sevilla PAC [facility] [place] 09/23/21 [facility] [place] Showing recent visits within past 365 days and meeting all other requirements Future Appointments No visits were found meeting these conditions. Showing future appointments within next 90 days and meeting all other requirements documented in this encounter Plan of Treatment Upcoming Encounters Date Type Department Care Team (Late st Contact Info) Description 04/25/2024 9:30 AM CROP AND SOIL SCIENTIST [facility] - [place] [address] [place] [address] Jaylon Gudino MD [address] [place] [address] documented as of this encounter Visit Diagnoses Not on filedocumented in this encounter Additional Health Concerns Assessment Noted Time PHQ-9 Depression Total Score: 0 04/17/19 21 9:00 AM CROP AND SOIL SCIENTIST documented as of this encounter Care Teams Fruit Canner Relationship Specialty Start Date End Date Jaylon Gudino MD [address] [place] [address] PCP - General Internal Medicine 01/16/16 documented as of this encounter
--- OUTSIDE RECORDS SUMMARY | 2024-03-03 12:44 | XMS_ITS | Encounter Summary ---
Author Organization [facility] Address [address] [place] [address] Phone Care Team Providers Care Filer Repairer Name Role Phone Jaylon Gudino MD Primary Care Provider Reason for Referral * Radiology Services (Routine) - Closed Specialty Diagnoses / Procedures Referred By Lilly kraft Referred To Contact Radiology Diagnoses Infrarenal abdominal aortic aneurysm (AAA) without rupture (HCC) Procedures US AORTA WITH DOPPLER LIMITED Jaylon Gudino MD [address] [place] [address] Phone: tel: fax: Referral ID Status Reason Start Date Expiration Date Visits Re quested Visits Authorized [id number] Closed 09/29/2022 1 1 Reason for Visit * Reason Comments Hypertension 6 mo f/u Encounter Details Date Type Department Care Team (Late st Contact Info) Description 09/29/2022 10:00 AM CDT Office Visit [facility] - Internal Medicine - [place] [address] [place] [address] Jaylon Gudino MD [address] [place] [address] Essential hypertension, benign (Primary Dx); Infrarenal [...] - 09/29/2022 10:00 AM CDT PROGRESS NOTE [facility] - INTERNAL MEDICINE [facility] [place] [address] PHONE: [phone] FAX: [phone] 09/29/2022 NAME: Bacilio Ramirez, : 1945, Assessment [...] no injury requiring repair. Being followed at [facility]. Complains of plugged up ears and decreased [...] st Contact Info) Description 04/25/2024 9:30 AM HELP DESK ASSOCIATE Office Visit [facility] - Internal Medicine - [place] [address] [place] [address] Jaylon Gudino MD [address] [place] [address] documented as of this encounter Procedures Procedure [...] PM T: ??10/22/2022 5:04 PM Report ID: [id number] Reading Location: ??[id number] Procedure Note Dheeraj Gonzalez Jr., MD - [...] Dheeraj Gonzalez M.D. CH: HEBER Report ID: [id number] Reading Location: [id number] IMPRESSION: Mild aneurysmal dilatation of the proximal [...] Vasc Surgery 67:277 us Jaylon Gudino MD [facility] US ORDERABLES Final Res ult * (ABNORMAL) CBC WITH AUTO DIFFERENTIAL (09/29/2022 10:21 AM CDT) WBC 5.38 4.00 - 12.00 10(3)/mcL 09/29/2022 3:[address] [facility] RBC 4.17(L) 4.40 - 5.80 10(6)/mcL 09/29/2022 3:[address] [facility] HEMOGLOBIN (HGB) 12.3(L) 13.0 - 16.5 g/dL 09/29/2022 3:[address] [facility] HEMATOCRIT (HCT) 37.8(L) 38.0 - 50.0 % 09/29/2022 3:[address] [facility] MCV 90.6 82.0 - 96.0 fL 09/29/2022 3:[address] [facility] MCH 29.5 26.0 - 32.0 pg 09/29/2022 3:[address] [facility] MCHC 32.5 31.0 - 36.0 g/dL 09/29/2022 3:[address] [facility] PLATELET COUNT 212 140 - 440 10(3)/mcL 09/29/2022 3:[address] [facility] RDW 11.5(L) 11.8 - 15.5 % 09/29/2022 3:[address] [facility] MPV 11.1 8.0 - 12.6 fL 09/29/2022 3:31 PM CDT [facility] NEUTROPHILS 58.7 40.0 - 68.0 % 09/29/2022 3:31 PM CDT [facility] LYMPHOCYTES 26.6 19.0 - 49.0 % 09/29/2022 3:31 PM CDT [facility] MONOCYTES 11.0 3.0 - 13.0 % 09/29/2022 3:31 PM CDT [facility] EOSINOPHILS 2.6 0.0 - 8.0 % 09/29/2022 3:31 PM CDT [facility] BASOPHILS 1.1(H) 0.0 - 1.0 % 09/29/2022 3:31 PM CDT [facility] ABSOLUTE NEUTROPHILS 3.16 1.40 - 5.30 10(3)/mcL 09/29/2022 3:31 PM CDT [facility] ABSOLUTE LYMPHOCYTES 1.43 0.90 - 3.30 10(3)/mcL 09/29/2022 3:[address] [facility] ABSOLUTE MONOCYTES 0.59 0.10 - 0.90 10(3)/mcL 09/29/2022 3:[address] [facility] ABSOLUTE EOSINOPHIL 0.14 0.00 - 0.50 10(3)/mcL 09/29/2022 3:[address] [facility] ABSOLUTE BASOPHILS 0.06 0.00 - 0.10 10(3)/mcL 09/29/2022 3:[address] [facility] NRBC PER 100 WBC 0 09/30/19 3:[address] [facility] Blood Venipuncture / Unknown 09/29/2022 10:21 AM CDT 09/29/2022 10:21 AM CDT us Jaylon Gudino MD HEMATOLOGY ORDERABLES Final Result Performing Organization Address City/[facility]/ZIP Co de Phone Number [facility] [address] [place] [address] * THYROID STIMULATING HORMONE (TSH) (09/29/2022 10:21 AM CDT) Pathologist [facility] TSH 4.520 0.300 - 5.000 mIU/L 09/29/2022 7:[address] [facility] Blood Venipuncture / Unknown 09/29/2022 10:21 AM CDT 09/29/2022 10:21 AM CDT us Jaylon Gudino MD CHEMISTRY ORDERABLES Final Result Performing Organization Address City/[facility] Co de Phone Number [facility] [address] [place] [address] * HEMOGLOBIN A1C W/ ESTIMATED GLUCOSE (09/29/2022 10:21 AM CDT) HGB-A1C 6.0 4.0 - 6.0 % 09/29/2022 6:[address] [facility] Est Average Glucose 125.5 mg/dL 09/29/2022 6:[address] [facility] Blood Venipuncture / Unknown 09/29/2022 10:21 AM CDT 09/29/2022 10:21 AM CDT Narrative [facility] - 09/29/2022 6:00 PM CDT HEMOGLOBIN A1C: DIABETIC PATIENTS: WELL-CONTROLLED: ?? 6.2 - 7.0 INTERMEDIATE WELL-CONTROLLED: ??7.0 - 9.0 POORLY-CONTROLLED: ??>9.0 Jaylon Gudino MD CHEMISTRY ORDERABLES Final Result Performing Organization Address City/[facility]/ZIP Co de Phone Number [facility] [address] [place] [address] * (ABNORMAL) LIPID PANEL (09/29/2022 10:21 AM CDT) CHOLESTEROL 176 <200 mg/dL 09/29/2022 7:[address] [facility] TRIGLYCERIDES 230(H) <150 mg/dL 09/29/2022 7:[address] [facility] HDL CHOLESTEROL 60.9 >40 mg/dL 7:[address] [facility] LDL 69 5 - 130 mg/dL 09/29/2022 7:[address] [facility] VLDL 46 5 - 55 mg/dL 09/29/2022 7:23 PM CDT [facility] CHOL/HDL RATIO 2.9 0.0 - 4.4 09/29/2022 7:23 PM CDT [facility] NON-HDL CHOLESTEROL 115.1 <130 mg/dL 09/29/2022 7:23 PM CDT [facility] Blood Venipuncture / Unknown 09/29/2022 10:21 AM CDT 09/29/2022 10:21 AM CDT us Jaylon Gudino MD CHEMISTRY ORDERABLES Final Result Performing Organization Address City/[facility]/ZIP Co de Phone Number [facility] [address] [place] [address] * (ABNORMAL) CMP (COMPREHENSIVE METABOLIC PANEL) (09/29/2022 10:21 AM CDT) SODIUM 138 136 - 144 mmol/L 09/29/2022 7:23 PM CDT [facility] POTASSIUM 4.5 3.5 - 5.1 mmol/L 09/29/2022 7:23 PM CDT [facility] CHLORIDE 104 100 - 110 mmol/L 09/29/2022 7:23 PM [facility] CO2, VENOUS 21(L) 22 - 32 mmol/L 09/29/2022 7:23 PM T [facility] ANION GAP 17.5 8.0 - 20.0 mmol/L 09/29/2022 7:23 PM T [facility] GLUCOSE 97 70 - 99 mg/dL 09/29/2022 7:23 PM T [facility] BUN 24(H) 8 - 23 mg/dL 09/29/2022 7:23 PM [facility] CREATININE, BLOOD 1.21 0.80 - 1.30 mg/dL 09/29/2022 7:23 PM [facility] BUN/CREATININE RATIO 20 12 - 20 ratio 09/29/2022 7:23 PM [facility] TOTAL PROTEIN 7.0 6.0 - 8.3 g/dL 09/29/2022 7:23 PM [facility] ALBUMIN 4.6 3.5 - 5.2 g/dL 09/29/2022 7:23 PM [facility] Comment: The colormetric methods used for the determination of Albumin may lead to falsely elevated test results in patients suffering from renal failure or insufficiency due to interference with other proteins. A/G RATIO 1.9 1.0 - 2.0 09/29/2022 7:23 PM [facility] CALCIUM 10.1 8.7 - 10.5 mg/dL 09/29/2022 7:23 PM [facility] T BILI 0.3 0.2 - 1.2 mg/dL 09/29/2022 7:23 PM [facility] SGOT (AST) 22 <=40 U/L 09/29/2022 7:23 PM T [facility] SGPT (ALT) 25 <=41 U/L 09/29/2022 7:[address] [facility] ALKALINE PHOSPHATASE 64 40 - 130 U/L 09/29/2022 7:[address] [facility] IS THE PATIENT REQUIRED TO BE FASTING? No 09/29/2022 7:[address] [facility] GFR, ESTIMATED >60 >=60 09/29/2022 7:[address] [facility] Comment: Creatinine Clearance is the preferred criteria for selecting drug dose adjustments in renally impaired patients. ??The GFR is provided as additional pertinent clinical information. GFR is reported in mL/min/1.73 sq m. Calculation based on the Chronic Kidney Disease Epidemiology Collaboration (CKD- EPI) equation refit without adjustment for race. GFR, EST. >60 >=60 023 7:[address] [facility] GFR, EST. NONAFRICAN 58(L) >=60 09/29/2022 7:[address] [facility] Blood Venipuncture / Unknown 09/29/2022 10:21 AM CDT 09/29/2022 10:21 AM CDT us Jaylon Gudino MD CHEMISTRY ORDERABLES Final Result [facility] [address] [place] [address] * REMOVE IMPACTED EAR WAX VIA INSTRUMENT [...] Total Score: 0 04/17/19 21 9:00 AM HELP DESK ASSOCIATE documented as of this encounter Care Teams Filer Repairer Relationship Specialty Start Date End Date Jaylon Gudino MD [address] [place] [address] PCP - General Internal Medicine 01/16/16 documented as of this encounter
--- OUTSIDE RECORDS SUMMARY | 2024-03-03 12:44 | XMS_ITS | Encounter Summary ---
Author Organization [facility] Address [address] [place] [address] Phone Care Team Providers Care Saturator Tender Name Role Phone Jaylon Gudino MD Primary Care Provider Reason for Visit * Reason Comments Medication Refill Encounter Details Date Type Department Care Team (Late st Contact Info) Description 11/04/2021 Refill [facility] - Internal Medicine - [place] [address] [place] [phone] Jaylon Gudino MD [address] [place] [address] Medication Refill Social History Tobacco Use Types [...] AM CDT Medication(s) [facility] Medication Refill Standing Order for Pediatricand [...] [place] 12/17/20 Office Visit Jaylon Gudino MD [facility] [place] Showing recent visits within past 365 days and meeting all other requirements Future Appointments No visits were found meeting these conditions. Showing future appointments within next 90 days and meeting all other requirements documented in this encounter Plan of Treatment Upcoming Encounters Date Type Department Care Team (Late st Contact Info) Description 04/25/2024 9:30 AM BABY DOCTOR Office Visit [facility] - Internal Medicine [facility] [address] [place] [address] Jaylon Gudino MD [address] [place] [address] documented as of this encounter Visit Diagnoses Not on filedocumented in this encounter Additional Health Concerns Assessment Noted Time PHQ-9 Depression Total Score: 0 04/17/19 9:00 AM BABY DOCTOR documented as of this encounter Care Teams Saturator Tender Relationship Specialty Start Date End Date Jaylon Gudino MD [address] [place] [address] PCP - General Internal Medicine 01/16/16 documented as of this encounter
--- OUTSIDE RECORDS SUMMARY | 2024-03-03 12:44 | XMS_ITS | Encounter Summary ---
Author Organization [facility] Address [address] [place] [address] Phone Care Team Providers Care Manager Video Name Role Phone Jaylon Gudino MD Primary Care Provider Reason for Visit * Reason Onset Date Comments Results 04/09/2022 Encounter Details Date Type Department Care Team (Late st Contact Info) Description 04/09/2022 Telephone [facility] - [place] [address] [place] [address] Jaylon Gudino MD [address] [facility] [place] [address] Results Social History Tobacco Use [...] Coronavirus/COVID-19? No / Unsure 03/31/2022 9:43 AM PRODUCTION LINE TECHNICIAN documented as of this encounter Miscellaneous Notes * Telephone Encounter - Luzma Liu RN - 04/09/2022 2:01 PM CST Pt aware and verbalizes understanding. UCTION LINE TECHNICIAN * Telephone Encounter - Luzma Liu RN - 04/09/2022 1:56 PM CST ----- Message from Jaylon Gudino MD sent at 04/01/2022 11:54 AM PRODUCTION LINE TECHNICIAN ----- Labs reviewed. CMP- Bun elevated. Need to increase fluid intake B12 level- okay TSH- mildly elevated. Need to start Levothyroxine 25mcg 4 times a week since feels tired UCTION LINE TECHNICIAN documented in this encounter Plan of Treatment Upcoming Encounters Date Type Department Care Team (Late st Contact Info) Description 04/25/2024 9:30 AM PRODUCTION LINE TECHNICIAN Office Visit [facility] - Internal Medicine - [place] [address] [place] [phone] Jaylon Gudino MD [address] [place] [address] documented as of this encounter Visit Diagnoses Diagnosis Elevated TSH- Primary Other abnormal blood chemistry documented in this encounter Additional Health Concerns Assessment Noted Time PHQ-9 Depression Total Score: 0 04/17/19 21 9:00 AM PRODUCTION LINE TECHNICIAN documented as of this encounter Care Teams Manager Video Relationship Specialty Start Date End Date Jaylon Gudino MD [address] [place] [address] PCP - General Internal Medicine 01/16/16 documented as of this encounter
--- OUTSIDE RECORDS SUMMARY | 2024-03-03 12:44 | XMS_ITS | Encounter Summary ---
Author Organization [facility] Address [address] [place] [address] Phone Care Team Providers Care Anthropology Professor Name Role Phone Jaylon Gudino MD Primary Care Provider Reason for Visit * Reason Comments Medication Refill Encounter Details Date Type Department Care Team (Late st Contact Info) Description 11/23/2021 Refill [facility] - Internal Medicine - [place] [address] [place] [phone] Jaylon Gudino MD [address] [place] [address] Medication Refill Social History Tobacco Use Types [...] [place] 12/17/20 Office Visit [facility] [place] Showing recent visits within past [...] st Contact Info) Description 04/25/2024 9:30 AM JIRA DEVELOPER Office Visit [facility] - Internal Medicine - [place] [address] [place] [address] Jaylon Gudino MD [address] [place] [address] documented as of this encounter Visit Diagnoses Not on filedocumented in this encounter Additional Health Concerns Assessment Noted Time PHQ-9 Depression Total Score: 0 04/17/19 21 9:00 AM JIRA DEVELOPER documented as of this encounter Care Teams Anthropology Professor Relationship Specialty Start Date End Date Jaylon Gudino MD [address] [place] [address] PCP - General Internal Medicine 01/16/16 documented as of this encounter
--- OUTSIDE RECORDS SUMMARY | 2024-03-03 12:44 | XMS_ITS | Encounter Summary ---
Author Organization [facility] Address [address] [place] [address] Phone Care Team Providers Care Flight Engineer Instructor Name Role Phone Jaylon Gudino MD Primary Care Provider Encounter Details Date Type Department Care Team (Late st Contact Info) Description 09/24/2021 8:00 AM CDT Lab [facility] - Internal Medicine - [place] [address] [place] [address] [facility] Essential hypertension, benign; Mixed hyperlipidemia; Hyperglycemia [...] st Contact Info) Description 04/25/2024 9:30 AM SOLAR DEVELOPMENT ENGINEER [facility] Visit [facility] [place] [address] [place] [address] Jaylon Gudino MD [address] [place] [address] documented as of this encounter Procedures Procedure [...] - 6.0 % 09/24/2021 3:36 PM CDT [facility] Est Average Glucose 139.9 mg/dL 09/24/2021 3:36 PM CDT [facility] Blood Venipuncture / Unknown 09/24/2021 7:44 AM CDT 09/24/2021 7:44 AM CDT Narrative [facility] - 09/24/2021 3:36 PM CDT HEMOGLOBIN A1C: DIABETIC PATIENTS: WELL-CONTROLLED: ?? 6.2 - 7.0 INTERMEDIATE WELL-CONTROLLED: ??7.0 - 9.0 POORLY-CONTROLLED: ??>9.0 Jaylon Gudino MD CHEMISTRY ORDERABLES Final Result Performing Organization Address [facility] Co de Phone Number [facility] [place] [address] * (ABNORMAL) LIPID PANEL (09/24/2021 7:44 AM CDT) CHOLESTEROL 172 <=200 mg/dL 09/24/2021 3:31 PM CDT [facility] TRIGLYCERIDES 288(H) <150 mg/dL 09/24/2021 3:31 PM CDT [facility] HDL CHOLESTEROL 47.4 >40 mg/dL 3:31 PM CDT [facility] LDL 67 5 - 130 mg/dL 09/24/2021 3:31 PM CDT [facility] VLDL 58(H) 5 - 55 mg/dL 09/24/2021 3:31 PM CDT [facility] CHOL/HDL RATIO 3.6 0.0 - 4.4 09/24/2021 3:31 PM CDT [facility] NON-HDL CHOLESTEROL 124.6 <130 mg/dL 09/24/2021 3:31 PM CDT [facility] Blood Venipuncture / Unknown 09/24/2021 7:44 AM CDT 09/24/2021 7:44 AM CDT Jaylon Gudino MD CHEMISTRY ORDERABLES Final Result Performing Organization Address [facility]/ZIP Co de Phone Number [facility] [place] [address] * (ABNORMAL) CMP (COMPREHENSIVE METABOLIC PANEL) (09/24/2021 7:44 AM CDT) SODIUM 139 136 - 144 mmol/L 09/24/2021 3:31 PM CDT [facility] POTASSIUM 4.1 3.5 - 5.1 mmol/L 09/24/2021 3:31 PM T [facility] CHLORIDE 105 100 - 110 mmol/L 09/24/2021 3:31 PM T [facility] CO2, VENOUS 24 22 - 32 mmol/L 09/24/2021 3:31 PM T [facility] ANION GAP 14.1 8.0 - 20.0 mmol/L 09/24/2021 3:31 PM T [facility] GLUCOSE 103(H) 70 - 99 mg/dL 09/24/2021 3:31 PM T [facility] BUN 27(H) 8 - 23 mg/dL 09/24/2021 3:31 PM [facility] CREATININE, BLOOD 1.16 0.80 - 1.30 mg/dL 09/24/2021 3:31 PM [facility] BUN/CREATININE RATIO 23(H) 12 - 20 ratio 09/24/2021 3:31 PM [facility] TOTAL PROTEIN 7.1 6.0 - 8.3 g/dL 09/24/2021 3:31 PM [facility] ALBUMIN 4.7 3.5 - 5.2 g/dL 09/24/2021 3:31 PM [facility] Comment: The colormetric methods used for the determination of Albumin may lead to falsely elevated test results in patients suffering from renal failure or insufficiency due to interference with other proteins. A/G RATIO 2.0 1.0 - 2.0 09/24/2021 3:31 PM T [facility] CALCIUM 9.4 8.9 - 10.3 mg/dL 09/24/2021 3:31 PM [facility] T BILI 0.4 <=1.2 mg/dL 09/24/2021 3:31 PM [facility] SGOT (AST) 35 <=40 U/L 09/24/2021 3:31 PM CDT [facility] SGPT (ALT) 30 <=41 U/L 09/24/2021 3:31 PM CDT [facility] ALKALINE PHOSPHATASE 70 40 - 130 U/L 09/24/2021 3:31 PM CDT [facility] IS THE PATIENT REQUIRED TO BE FASTING? No 09/24/2021 3:31 PM CDT [facility] GFR, EST. NONAFRICAN >60 >=60 09/24/2021 3:31 PM CDT [facility] GFR, EST. >60 >=60 022 3:31 PM CDT [facility] Blood Venipuncture / Unknown 09/24/2021 7:44 AM CDT 09/24/2021 7:44 AM CDT Jaylon Gudino MD CHEMISTRY ORDERABLES Final Result Performing Organization Address City/State/[facility] Co de Phone Number [facility] [place] [address] documented in this encounter Visit Diagnoses Diagnosis Essential hypertension, benign Mixed hyperlipidemia Hyperglycemia Other abnormal glucose documented in this encounter Additional Health Concerns Assessment Noted Time PHQ-9 Depression Total Score: 0 04/17/19 21 9:00 AM SOLAR DEVELOPMENT ENGINEER documented as of this encounter Care Teams Flight Engineer Instructor Relationship Specialty Start Date End Date Jaylon Gudino MD [address] [place] [address] PCP - General Internal Medicine 01/16/16 documented as of this encounter
--- OUTSIDE RECORDS SUMMARY | 2024-03-03 12:44 | XMS_ITS | Encounter Summary ---
Author Organization [facility] Address [address] [place] [address] Phone Care Team Providers Care Sinter Machine Operator Name Role Phone Jaylon Gudino MD Primary Care Provider [phone] Encounter Details Date Type Department Care Team (Late st Contact Info) Description 10/02/2022 Telephone [facility] [place] [address] [place] [address] Jaylon Gudino MD [address] [place] [address] Social History Tobacco Use Types [...] Sent: 09/30/2022 9:17 AM CDT To: [facility] Nurse Pool CMP, lipids, HbA1c, CBC, thyroid function test-okay. No change in meds. documented in this encounter Plan of Treatment Upcoming Encounters Date Type Department Care Team (Late st Contact Info) Description 04/25/2024 9:30 AM STONE LAYER Office Visit [facility] [place] [address] [place] [address] Jaylon Gudino MD [address] [place] [address] documented as of this encounter Visit Diagnoses Not on filedocumented in this encounter Additional Health Concerns Assessment Noted Time PHQ-9 Depression Total Score: 0 04/17/19 21 9:00 AM STONE LAYER documented as of this encounter Care Teams Sinter Machine Operator Relationship Specialty Start Date End Date Jaylon Gudino MD [address] [place] [address] PCP - General Internal Medicine 01/16/16 documented as of this encounter
--- OUTSIDE RECORDS SUMMARY | 2024-03-03 12:44 | XMS_ITS | Encounter Summary ---
Author Organization [facility] Address [address] [place] [address] Phone Care Team Providers Care Lead Software Developer Name Role Phone Jaylon Gudino MD Primary Care Provider [phone] Reason for Visit * Reason Comments Medication Refill Encounter Details Date Type Department Care Team (Late st Contact Info) Description 01/17/2022 Refill [facility] Medical Group - Internal Medicine - [place] [address] [place] [address] Jaylon Gudino MD [address] [facility] [place] [address] Medication Refill Social History Tobacco Use Types [...] AM CST Medication(s) refilled and signed per [facility] [...] [place] 03/25/21 Office Visit [facility] Showing recent visits within [...] Range Status 09/24/2021 124.6 <130 mg/dL Final PATTERN REPAIRER documented in this encounter Plan of Treatment Upcoming Encounters Date Type Department Care Team (Late st Contact Info) Description 04/25/2024 9:30 AM WAX PATTERN REPAIRER Office Visit [facility] - Internal Medicine - [place] [address] [place] [phone] Jaylon Gudino MD [address] [place] [address] documented as of this encounter Visit Diagnoses Not on filedocumented in this encounter Additional Health Concerns Assessment Noted Time PHQ-9 Depression Total Score: 0 04/17/19 21 9:00 AM WAX PATTERN REPAIRER documented as of this encounter Care Teams Lead Software Developer Relationship Specialty Start Date End Date Jaylon Gudino MD [address] [place] [address] PCP - General Internal Medicine 01/16/16 documented as of this encounter
--- OUTSIDE RECORDS SUMMARY | 2024-03-03 12:44 | XMS_ITS | Encounter Summary ---
Author Organization [facility] Address [address] [place] [address] Phone Care Team Providers Care Network Pricing Consultant Name Role Phone Jaylon Gudino MD Primary Care Provider Reason for Visit * Reason Comments Medication Refill Encounter Details Date Type Department Care Team (Late st Contact Info) Description 12/12/2021 Refill [facility] - Internal Medicine - [place] [address] [place] [address] Jaylon Gudino MD [address] [place] [address] Medication Refill Social History Tobacco Use Types [...] encounter Miscellaneous Notes * Telephone Encounter - Keysah Loya RN - 12/13/2021 6:37 AM CDT [...] 09/23/21 [facility] 12/17/20 Office Visit Jaylon Gudino MD [facility] Showing recent visits within past 365 [...] Dept 09/23/21 Office Visit Jaylon Gudino MD [facility] [place] 03/25/21 Office Visit Jaylon Gudino MD [facility] [place] 12/17/20 Office Visit Jaylon Gudino MD [facility] [place] Showing recent visits within past 365 days [...] st Contact Info) Description 04/25/2024 9:30 AM PROJECT MANAGER FINANCE Office Visit [facility] - Internal Medicine [place] [address] [place] [address] Jaylon Gudino MD [address] [place] [address] documented as of this encounter Visit Diagnoses Not on filedocumented in this encounter Additional Health Concerns Assessment Noted Time PHQ-9 Depression Total Score: 0 04/17/19 21 9:00 AM PROJECT MANAGER FINANCE documented as of this encounter Care Teams Network Pricing Consultant Relationship Specialty Start Date End Date Jaylon Gudino MD [address] [place] [address] PCP - General Internal Medicine 01/16/16 documented as of this encounter
--- OUTSIDE RECORDS SUMMARY | 2024-03-03 12:45 | XMS_ITS | Encounter Summary ---
Author Organization [facility] Address [address] [place] [address] Phone Care Team Providers Care Environment Friendly Landscape Designer Name Role Phone Jaylon Gudino MD Primary Care Provider Reason for Visit * Reason Comments Medication Refill Encounter Details Date Type Department Care Team (Late st Contact Info) Description 04/25/2021 Refill [facility] Medical Group - Internal Medicine - [place] [address] [place] [phone] Jaylon Gudino MD [address] [place] [address] Medication Refill Social History Tobacco Use Types [...] 03/25/21 Office Visit Jaylon Gudino MD [facility] [place] 12/17/20 Office Visit Jaylon Gudino MD [facility] [place] 09/10/20 Office Visit Jaylon Gudino MD [facility] [place] 07/26/20 Office Visit Jaylon Gudino MD [facility] Showing recent visits within past 365 days and meeting all other requirements Future Appointments No visits were found meeting these conditions. Showing future appointments within next 90 days and meeting all other requirements NER AND PREPARER documented in this encounter Plan of Treatment Upcoming Encounters Date Type Department Care Team (Late st Contact Info) Description 04/25/2024 9:30 AM CLEANER AND PREPARER Office Visit [facility] Medical Group - Internal Medicine - [place] [address] [place] [address] Jaylon Gudino MD [address] [place] [address] documented as of this encounter Visit Diagnoses Not on filedocumented in this encounter Additional Health Concerns Assessment Noted Time PHQ-9 Depression Total Score: 0 04/17/19 21 9:00 AM CLEANER AND PREPARER documented as of this encounter Care Teams Environment Friendly Landscape Designer Relationship Specialty Start Date End Date Jaylon Gudino MD [address] [place] [address] PCP - General Internal Medicine 01/16/16 documented as of this encounter
--- OUTSIDE RECORDS SUMMARY | 2024-03-03 12:45 | XMS_ITS | Encounter Summary ---
Author Organization [facility] Address [address] [place] [address] Phone Care Team Providers Care Pool Hall Inspector Name Role Phone Jaylon Gudino MD Primary Care Provider Reason for Visit * Reason Comments Medication Refill Encounter Details Date Type Department Care Team (Late st Contact Info) Description 02/24/2021 Refill [facility] - Internal Medicine - [place] [address] [place] [phone] Jaylon Gudino MD [address] [place] [address] Medication Refill Social History Tobacco Use Types [...] Keysha Loya RN - 02/25/2021 11:04 AM PSYCHIATRIC TECHNICIAN ASSISTANT Medication(s) refilled and signed per [facility] [...] 12/17/20 Office Visit Jaylon Gudino MD [facility] [place] 09/10/20 Office Visit Jaylon Gudino MD [facility] [place] 07/26/20 Office Visit Jaylon Gudino MD [facility] [place] 04/17/20 [facility] [place] Showing recent visits within past 365 days and meeting all other requirements Future Appointments Date Type Provider Dept 03/25/21 Appointment Jaylon Gduino MD [facility] [place] Showing future appointments within next 90 days and meeting all other requirements HIATRIC TECHNICIAN ASSISTANT documented in this encounter Plan of Treatment Upcoming Encounters Date Type Department Care Team (Late st Contact Info) Description 04/25/2024 9:30 AM PSYCHIATRIC TECHNICIAN ASSISTANT Office Visit [facility] - Internal Medicine - [place] [address] [place] [address] Jaylon Gudino MD [address] [place] [address] documented as of this encounter Visit Diagnoses Not on filedocumented in this encounter Additional Health Concerns Assessment Noted Time PHQ-9 Depression Total Score: 0 04/17/19 9:00 AM PSYCHIATRIC TECHNICIAN ASSISTANT documented as of this encounter Care Teams Pool Hall Inspector Relationship Specialty Start Date End Date Jaylon Gudino MD [address] [place] [address] PCP - General Internal Medicine 01/16/16 documented as of this encounter
--- OUTSIDE RECORDS SUMMARY | 2024-03-03 12:45 | XMS_ITS | Encounter Summary ---
Author Organization [facility] Address [address] [place] [address] Phone Care Team Providers Care Stamp Press Operator Name Role Phone Jaylon Gudino MD Primary Care Provider Reason for Visit * Reason Comments Medication Refill Encounter Details Date Type Department Care Team (Late st Contact Info) Description 02/15/2021 Refill [facility] - Internal Medicine - [place] [address] [place] [phone] Jaylon Gudino MD [address] [place] [address] Medication Refill Social History Tobacco Use Types [...] 12/17/20 Office Visit Jaylon Gudino MD [facility] [place] 09/10/20 Office Visit Jaylon Gudino MD [facility] [place] 07/26/20 Office Visit Jaylon Gudino MD [facility] [place] 04/17/20 Office Visit Jaylon Gudino MD [facility] [place] Showing recent visits within past 365 days and meeting all other requirements Future Appointments Date Type Provider Dept 03/25/21 Appointment Jaylon Gudino MD [facility] [place] Showing future appointments within next 90 days [...] Range Status 12/17/2020 94.3 <130 mg/dL Final ER/WAITRESS HEAD documented in this encounter Plan of Treatment Upcoming Encounters Date Type Department Care Team (Late st Contact Info) Description 04/25/2024 9:30 AM WAITER/WAITRESS HEAD Office Visit [facility] - Internal [facility] [place] [address] [place] [address] Jaylon Gudino MD [address] [place] [address] documented as of this encounter Visit Diagnoses Not on filedocumented in this encounter Additional Health Concerns Assessment Noted Time PHQ-9 Depression Total Score: 0 04/17/19 21 9:00 AM WAITER/WAITRESS HEAD documented as of this encounter Care Teams Stamp Press Operator Relationship Specialty Start Date End Date Jaylon Gudino MD [address] [place] [address] PCP - General Internal Medicine 01/16/16 documented as of this encounter
--- OUTSIDE RECORDS SUMMARY | 2024-03-03 12:45 | XMS_ITS | Encounter Summary ---
Author Organization [facility] Address [address] [place] [address] Phone Care Team Providers Care Shelter Case Manager Name Role Phone Jaylon Gudino MD Primary Care Provider Reason for Visit * Reason Comments Medication Refill Encounter Details Date Type Department Care Team (Late st Contact Info) Description 06/15/2021 Refill [facility] Group - Internal Medicine - [place] [address] [place] [phone] Jaylon Gudino MD [address] [place] [address] Medication Refill Social History Tobacco Use Types [...] Contact Info) Description 04/25/2024 9:30 AM PROJECT ADMIN Office Visit [facility] [address] [place] [address] Jaylon Gudino MD [address] [place] [address] documented as of this encounter Visit Diagnoses Not on filedocumented in this encounter Additional Health Concerns Assessment Noted Time PHQ-9 Depression Total Score: 0 04/17/19 21 9:00 AM PROJECT ADMIN documented as of this encounter Care Teams Shelter Case Manager Relationship Specialty Start Date End Date Jaylon Gudino MD [address] [place] [address] PCP - General Internal Medicine 01/16/16 documented as of this encounter
--- OUTSIDE RECORDS SUMMARY | 2024-03-03 12:45 | XMS_ITS | Encounter Summary ---
Author Organization [facility] Address [address] [place] [address] Phone Care Team Providers Care Candy Separator Enrobing Name Role Phone Jaylon Gudino MD Primary Care Provider Reason for Visit * Reason Comments Medication Refill Encounter Details Date Type Department Care Team (Late st Contact Info) Description 08/29/[address] [facility] Medical Group - Internal Medicine - [place] [address] [place] [phone] Jaylon Gudino MD [address] [place] [address] Medication Refill Social History Tobacco Use Types [...] st Contact Info) Description 04/25/2024 9:30 AM OYSTER PLANTER [facility] - [place] [address] [place] [address] Jaylon Gudino MD [address] [place] [address] documented as of this encounter Visit Diagnoses Not on filedocumented in this encounter Additional Health Concerns Assessment Noted Time PHQ-9 Depression Total Score: 0 04/17/19 21 9:00 AM OYSTER PLANTER documented as of this encounter Care Teams Candy Separator Enrobing Relationship Specialty Start Date End Date Jaylon Gudino MD [address] [place] [address] PCP - General Internal Medicine 01/16/16 documented as of this encounter
--- OUTSIDE RECORDS SUMMARY | 2024-03-03 12:45 | XMS_ITS | Encounter Summary ---
Author Organization [facility] [employer] Care Team Providers Care Weld Inspector Name Role Phone Jaylon Gudino MD Primary Care Provider [phone] Encounter Details Date Type Department Care Team [...] COVID-19? No / Unsure 03/25/2021 9:39 AM ROADABILITY MACHINE OPERATOR documented as of this encounter Plan of Treatment Upcoming Encounters Date Type Department Care Team (Late st Contact Info) Description 04/25/2024 9:30 AM ROADABILITY MACHINE OPERATOR Office Visit [facility] - Internal Medicine - [place] [address] [place] [address] Jaylon Gudino MD [address] [place] [address] documented as of this encounter Visit Diagnoses Not on filedocumented in this encounter Additional Health Concerns Assessment Noted Time PHQ-9 Depression Total Score: 0 04/17/19 21 9:00 AM ROADABILITY MACHINE OPERATOR documented as of this encounter Care Teams Weld Inspector Relationship Specialty Start Date End Date Jaylon Gudino MD [address] [place] [address] PCP - General Internal Medicine 01/16/16 documented as of this encounter
--- OUTSIDE RECORDS SUMMARY | 2024-03-03 12:45 | XMS_ITS | Encounter Summary ---
Author Organization [facility] Address [address] [place] [address] Phone Care Team Providers Care Cubing Machine Tender Name Role Phone Jaylon Gudino MD Primary Care Provider Reason for Visit * Reason Comments Medication Refill Encounter Details Date Type Department Care Team (Late st Contact Info) Description 05/26/2021 Refill [facility] Group - Internal Medicine - [place] [address] [place] [phone] Jaylon Gudino MD [address] [place] [address] Medication Refill Social History Tobacco Use Types [...] 03/25/21 Office Visit Jaylon Gudino MD [facility] 12/17/20 Office Visit Jaylon Gudino MD [facility] [place] 09/10/20 Office Visit Jaylon Gudino MD [facility] [place] 07/26/20 Office [facility] Showing recent visits within past 365 days [...] st Contact Info) Description 04/25/2024 9:30 AM APPLIED STATISTICIAN [facility] - [place] [address] [place] [address] Jaylon Gudino MD [address] [place] [address] documented as of this encounter Visit Diagnoses Not on filedocumented in this encounter Additional Health Concerns Assessment Noted Time PHQ-9 Depression Total Score: 0 04/17/19 21 9:00 AM APPLIED STATISTICIAN documented as of this encounter Care Teams Cubing Machine Tender Relationship Specialty Start Date End Date Jaylon Gudino MD [address] [place] [address] PCP - General Internal Medicine 01/16/16 documented as of this encounter
--- OUTSIDE RECORDS SUMMARY | 2024-03-03 12:45 | XMS_ITS | Encounter Summary ---
Author Organization [facility] Address [address] [place] [address] Phone Care Team Providers Care Mosaicist Name Role Phone Jaylon Gudino MD Primary Care Provider Reason for Visit * Reason Comments Medication Refill Encounter Details Date Type Department Care Team (Late st Contact Info) Description 03/05/2021 Refill [facility] Medical Group - Internal Medicine - [place] [address] [place] [phone] Jaylon Gudino MD [address] [place] [address] Medication Refill Social History Tobacco Use Types [...] 12/17/20 Office Visit Jaylon Gudino MD [facility] [place] 09/10/20 Office Visit Jaylon Gudino MD [facility] [place] 07/26/20 Office Visit Jaylon Gudino MD [facility] [place] 04/17/20 Office Visit Jaylon Gudino MD [facility] [place] Showing recent visits within past 365 days and meeting all other requirements Future Appointments Date Type Provider Dept 03/25/21 Appointment Jaylon Gudino MD [facility] [place] Showing future appointments within next 90 days [...] Dept 12/17/20 Office Visit Jaylon Gudino MD [facility] [place] 09/10/20 Office Visit Jaylon Gudino MD [facility] [place] 07/26/20 Office Visit Jaylon Gudino MD [facility] [place] 04/17/20 Office Visit Jaylon Gudino MD [facility] [place] Showing recent visits within past 365 days and meeting all other requirements Future Appointments Date Type Provider Dept 03/25/21 Appointment Jaylon Gudino MD [facility] [place] Showing future appointments within next 90 days and meeting all other requirements ION HOUSEKEEPER documented in this encounter Plan of Treatment Upcoming Encounters Date Type Department Care Team (Late st Contact Info) Description 04/25/2024 9:30 AM SECTION HOUSEKEEPER [facility] Visit [facility] - [facility] Medicine [facility] [address] [place] [address] Jaylon Gudino MD [address] [place] [address] documented as of this encounter Visit Diagnoses Not on filedocumented in this encounter Additional Health Concerns Assessment Noted Time PHQ-9 Depression Total Score: 0 04/17/19 21 9:00 AM SECTION HOUSEKEEPER documented as of this encounter Care Teams Mosaicist Relationship Specialty Start Date End Date Jaylon Gudino MD [address] [place] [address] PCP - General Internal Medicine 01/16/16 documented as of this encounter
--- OUTSIDE RECORDS SUMMARY | 2024-03-03 12:45 | XMS_ITS | Encounter Summary ---
Author Organization [facility] Address [address] [place] [address] Phone Care Team Providers Care Project/Production Manager Imaging Name Role Phone Jaylon Gudino MD Primary Care Provider [phone] Reason for Visit * Reason Comments Hypertension 6 mo f/u Wax in Ear Both ears Encounter Details Date Type Department Care Team (Late st Contact Info) Description 09/23/2021 10:00 AM CDT Office Visit [facility] Medical Group - Internal Medicine - [place] [address] [place] [address] Jaylon Gudino MD [address] [place] [address] Essential hypertension, benign (Primary Dx); Mixed hyperlipidemia; [...] with the patient today: Smoking * Jaylon Gudnio MD - 09/23/2021 10:00 AM CDT PROGRESS NOTE [facility] MEDICAL GROUP - INTERNAL MEDICINE [address] [place] [address] PHONE: [phone] FAX: [phone] 09/23/2021 NAME: Bacilio Ramirez, : 1945, Assessment [...] st Contact Info) Description 04/25/2024 9:30 AM EEO OFFICER [facility] - [place] [address] [place] [address] Jaylon Gudino MD [address] [facility] [place] [address] documented as of this encounter Results * (ABNORMAL) HEMOGLOBIN A1C W/ ESTIMATED GLUCOSE (09/24/2021 7:44 AM CDT) HGB-A1C 6.5(H) 4.0 - 6.0 % 09/24/2021 3:36 PM CDT [facility] Est Average Glucose 139.9 mg/dL 09/24/2021 3:36 PM CDT [facility] Blood Venipuncture / Unknown 09/24/2021 7:44 AM CDT 09/24/2021 7:44 AM CDT Narrative [facility] - 09/24/2021 3:36 PM CDT HEMOGLOBIN A1C: DIABETIC PATIENTS: WELL-CONTROLLED: ?? 6.2 - 7.0 INTERMEDIATE WELL-CONTROLLED: ??7.0 - 9.0 POORLY-CONTROLLED: ??>9.0 us Jaylon Gudino MD CHEMISTRY ORDERABLES Final Result Performing Organization Address City/[facility]/ZIP Co de Phone Number [facility] [address] [place] [address] * (ABNORMAL) LIPID PANEL (09/24/2021 7:44 AM CDT) CHOLESTEROL 172 <=200 mg/dL 09/24/2021 3:31 PM CDT [facility] TRIGLYCERIDES 288(H) <150 mg/dL 09/24/2021 3:31 PM CDT [facility] HDL CHOLESTEROL 47.4 >40 mg/dL 3:31 PM CDT [facility] LDL 67 5 - 130 mg/dL 09/24/2021 3:31 PM CDT [facility] VLDL 58(H) 5 - 55 mg/dL 09/24/2021 3:31 PM CDT [facility] CHOL/HDL RATIO 3.6 0.0 - 4.4 09/24/2021 3:31 PM CDT [facility] NON-HDL CHOLESTEROL 124.6 <130 mg/dL 09/24/2021 3:31 PM CDT [facility] Blood Venipuncture / Unknown 09/24/2021 7:44 AM CDT 09/24/2021 7:44 AM CDT us Jaylon Gudino MD CHEMISTRY ORDERABLES Final Result [facility] [address] [place] [address] * (ABNORMAL) CMP (COMPREHENSIVE METABOLIC PANEL) (09/24/2021 7:44 AM CDT) SODIUM 139 136 - 144 mmol/L 09/24/2021 3:31 PM CDT [facility] POTASSIUM 4.1 3.5 - 5.1 mmol/L 09/24/2021 3:[address] [facility] CHLORIDE 105 100 - 110 mmol/L 09/24/2021 3:[address] [facility] CO2, VENOUS 24 22 - 32 mmol/L 09/24/2021 3:[address] [facility] ANION GAP 14.1 8.0 - 20.0 mmol/L 09/24/2021 3:[address] [facility] GLUCOSE 103(H) 70 - 99 mg/dL 09/24/2021 3:[address] [facility] BUN 27(H) 8 - 23 mg/dL 09/24/2021 3:[address] [facility] CREATININE, BLOOD 1.16 0.80 - 1.30 mg/dL 09/24/2021 3:[address] [facility] BUN/CREATININE RATIO 23(H) 12 - 20 ratio 09/24/2021 3:[address] [facility] TOTAL PROTEIN 7.1 6.0 - 8.3 g/dL 09/24/2021 3:[address] [facility] ALBUMIN 4.7 3.5 - 5.2 g/dL 09/24/2021 3:[address] [facility] Comment: The colormetric methods used for the determination of Albumin may lead to falsely elevated test results in patients suffering from renal failure or insufficiency due to interference with other proteins. A/G RATIO 2.0 1.0 - 2.0 09/24/2021 3:[address] [facility] CALCIUM 9.4 8.9 - 10.3 mg/dL 09/24/2021 3:[address] [facility] T BILI 0.4 <=1.2 mg/dL 09/24/2021 3:[address] [facility] SGOT (AST) 35 <=40 U/L 09/24/2021 3:[address] [facility] SGPT (ALT) 30 <=41 U/L 09/24/2021 3:31 PM CDT [facility] ALKALINE PHOSPHATASE 70 40 - 130 U/L 09/24/2021 3:31 PM CDT [facility] IS THE PATIENT REQUIRED TO BE FASTING? No 09/24/2021 3:31 PM CDT [facility] GFR, EST. NONAFRICAN >60 >=60 09/24/2021 3:31 PM CDT [facility] GFR, EST. >60 >=60 022 3:31 PM CDT [facility] Blood Venipuncture / Unknown 09/24/2021 7:44 AM CDT 09/24/2021 7:44 AM CDT us Jaylon Gudino MD CHEMISTRY ORDERABLES Final Result [facility] [address] [place] [address] documented in this encounter Visit Diagnoses Diagnosis Essential hypertension, benign- Primary Mixed hyperlipidemia Hyperglycemia Other abnormal glucose Abdominal aortic aneurysm (AAA) without rupture (HCC) documented in this encounter Additional Health Concerns Assessment Noted Time PHQ-9 Depression Total Score: 0 04/17/19 21 9:00 AM EEO OFFICER documented as of this encounter Care Teams Project/Production Manager Imaging Relationship Specialty Start Date End Date Jaylon Gudino MD [address] [place] [address] PCP - General Internal Medicine 01/16/16 documented as of this encounter
--- OUTSIDE RECORDS SUMMARY | 2024-03-03 12:45 | XMS_ITS | Encounter Summary ---
Author Organization [facility] Address [address] [place] [address] Phone Care Team Providers Care Training Professional Name Role Phone Jaylon Gudino MD Primary Care Provider Reason for Visit * Reason Comments Medication Refill Encounter Details Date Type Department Care Team (Late st Contact Info) Description 09/14/2021 Refill [facility] Medical Group - Internal Medicine - [place] [address] [place] [phone] Jaylon Gudino MD [address] [place] [address] Medication Refill Social History Tobacco Use Types [...] Office Visit Jaylon Gudino MD [facility] [place] 12/17/20 Office Visit Jaylon Gudino MD [facility] [place] Showing recent visits within past 365 days and meeting all other requirements Future Appointments Date Type Provider Dept 09/23/21 Appointment Jaylon Gudino MD [facility] [place] Showing future appointments within next 90 days [...] Office Visit Jaylon Gudino MD [facility] [place] 12/17/20 Office Visit Jaylon Gudino MD [facility] [place] Showing recent visits within past 365 days and meeting all other requirements Future Appointments Date Type Provider Dept 09/23/21 Appointment Jaylon [facility]ud[facility] MD [facility] [place] Showing future appointments within next 90 days and meeting all other requirements Passed - GFR on record in past 12 months GFR, EST. NONAFRICAN Date Value Ref Range Status 12/17/2020 >60 >=60 Final documented in this encounter Plan of Treatment Upcoming Encounters Date Type Department Care Team (Late st Contact Info) Description 04/25/2024 9:30 AM DERMATOLOGY PHYSICIAN [facility] - [place] [address] [place] [address] Jaylon Gudino MD [address] [place] [address] documented as of this encounter Visit Diagnoses Not on filedocumented in this encounter Additional Health Concerns Assessment Noted Time PHQ-9 Depression Total Score: 0 04/17/19 21 9:00 AM DERMATOLOGY PHYSICIAN documented as of this encounter Care Teams Training Professional Relationship Specialty Start Date End Date Jaylon Gudino MD [address] [place] [address] PCP - General Internal Medicine 01/16/16 documented as of this encounter
--- OUTSIDE RECORDS SUMMARY | 2024-03-03 12:45 | XMS_ITS | Encounter Summary ---
Author Organization [facility] Address [address] [place] [address] Phone Care Team Providers Care Garment Finisher Name Role Phone Jaylon Gudnio MD Primary Care Provider Encounter Details Date Type Department Care Team (Late st Contact Info) Description 03/07/2021 Refill [facility] - [place] [address] [place] [phone] Jaylon Gudino MD [address] [place] [address] Social History Tobacco Use Types [...] Jaylon Gudino MD - 03/07/2021 4:51 PM DESIGN CELL ENGINEER Losartan not available. Chg to Marlynrtan GN CELL ENGINEER documented in this encounter Plan of Treatment Upcoming Encounters Date Type Department Care Team (Late st Contact Info) Description 04/25/2024 9:30 AM DESIGN CELL ENGINEER [facility] Visit [facility] - Internal Medicine [place] [address] [place] [address] Jaylon Gudino MD [address] [place] [address] documented as of this encounter Visit Diagnoses Not on filedocumented in this encounter Additional Health Concerns Assessment Noted Time PHQ-9 Depression Total Score: 0 04/17/19 21 9:00 AM DESIGN CELL ENGINEER documented as of this encounter Care Teams Garment Finisher Relationship Specialty Start Date End Date Jaylon Gudino MD [address] [place] [address] PCP - General Internal Medicine 01/16/16 documented as of this encounter
--- OUTSIDE RECORDS SUMMARY | 2024-03-03 12:45 | XMS_ITS | Encounter Summary ---
Author Organization [facility] Address [address] [place] [address] Phone Care Team Providers Care Flame Channeler Name Role Phone Jaylon Gudino MD Primary Care Provider Reason for Visit * Reason Comments High Blood Pressure 3 mo f/u Encounter Details Date Type Department Care Team (Late st Contact Info) Description 03/25/2021 10:00 AM WELL TREATMENT OFFSIDER [facility] Visit [facility] - Internal Medicine - [place] [address] [place] [address] Jaylon Gudino MD [address] [facility] [place] [address] Essential hypertension, benign (Primary Dx); Abdominal aortic [...] COVID-19? No / Unsure 03/25/2021 9:39 AM WELL TREATMENT OFFSIDER documented as of this encounter Last Filed Vital Signs Vital Sign Reading Time Taken Comments Blood Pressure 140/70 03/25/2021 9:43 AM WELL TREATMENT OFFSIDER Pulse 56 03/25/2021 9:43 AM WELL TREATMENT OFFSIDER Temperature 36.6 ??C (97.9 ??F) 03/25/2021 9:43 AM CS T Respiratory Rate - - Oxygen Saturation 98% 03/25/2021 9:43 AM WELL TREATMENT OFFSIDER Inhaled Oxygen Concentration - - Weight 81.2 kg (179 lb) 03/25/2021 9:43 AM WELL TREATMENT OFFSIDER Height 177.8 cm (5' 10 ) 03/25/2021 9:43 AM WELL TREATMENT OFFSIDER Body Mass Index 25.68 03/25/2021 9:43 AM WELL TREATMENT OFFSIDER documented in this encounter Progress Notes * India Terrell, MANAGER CUSTOMER - 03/25/2021 10:00 AM CST Bacilio Childers [...] with the patient today: Smoking and Depression TREATMENT OFFSIDER * Jaylon Gudino MD - 03/25/2021 10:00 AM CST PROGRESS NOTE [facility] - INTERNAL MEDICINE [address] [place] [address] PHONE: [phone] FAX: [phone] 03/25/2021 NAME: Bacilio Ramirez, : 1945, Assessment [...] By: Jaylon Gudino MD 03/25/2021 9:59 AM WELL TREATMENT OFFSIDER TREATMENT OFFSIDER documented in this encounter Plan of Treatment Upcoming Encounters Date Type Department Care Team (Late st Contact Info) Description 04/25/2024 9:30 AM WELL TREATMENT OFFSIDER [facility] Visit [facility] - Internal Medicine [facility] [address] [place] [address] Jaylon Gudino MD [address] [facility] [place] [address] documented as of this encounter Visit Diagnoses Diagnosis Essential hypertension, benign- Primary Abdominal aortic aneurysm (AAA) without rupture (HCC) Mixed hyperlipidemia GERD without esophagitis Esophageal reflux documented in this encounter Additional Health Concerns Assessment Noted Time PHQ-9 Depression Total Score: 0 04/17/19 21 9:00 AM WELL TREATMENT OFFSIDER documented as of this encounter Care Teams Flame Channeler Relationship Specialty Start Date End Date Jaylon Gudino MD [address] [place] [address] PCP - General Internal Medicine 01/16/16 documented as of this encounter
--- OUTSIDE RECORDS SUMMARY | 2024-03-03 12:45 | XMS_ITS | Encounter Summary ---
Author Organization [facility] Address [address] [place] [address] Phone Care Team Providers Care Topography Technician Name Role Phone Jaylon Gudino MD Primary Care Provider Reason for Visit * Reason Comments Medication Refill Encounter Details Date Type Department Care Team (Late st Contact Info) Description 06/10/2021 Refill [facility] Medical Group - Internal Medicine - [place] [address] [place] [phone] Jaylon Gudino MD [address] [place] [address] Medication Refill Social History Tobacco Use Types [...] 03/25/21 Office Visit Jaylon Gudino MD [facility] [place] 12/17/20 Office Visit Jaylon Gudino MD [facility] [place] 09/10/20 Office Visit Jaylon Gudino MD [facility] [place] 07/26/20 Office Visit Jaylon Gudino MD [facility] [place] Showing recent visits within past 365 days and meeting all other requirements Future Appointments No visits were found meeting these conditions. Showing future appointments within next 90 days and meeting all other requirements documented in this encounter Plan of Treatment Upcoming Encounters Date Type Department Care Team (Late st Contact Info) Description 04/25/2024 9:30 AM SHIP WASHER Office Visit [facility] Medical Group - Internal Medicine - [place] [address] [place] [phone] Jaylon Gudino MD [address] [place] [address] documented as of this encounter Visit Diagnoses Not on filedocumented in this encounter Additional Health Concerns Assessment Noted Time PHQ-9 Depression Total Score: 0 04/17/19 9:00 AM SHIP WASHER documented as of this encounter Care Teams Topography Technician Relationship Specialty Start Date End Date Jaylon Gudino MD [address] [place] [address] PCP - General Internal Medicine 01/16/16 documented as of this encounter
--- OUTSIDE RECORDS SUMMARY | 2024-03-03 12:46 | XMS_ITS | Encounter Summary ---
Author Organization [facility] Address [address] [place] [address] Phone Care Team Providers Care Supervisor Evaporator Name Role Phone Jaylon Gudino MD Primary Care Provider Reason for Visit * Reason Comments Follow-up 3 mo f/u Encounter Details Date Type Department Care Team (Late st Contact Info) Description 04/17/2020 10:00 AM AUTO DEALER Office Visit [facility] - Internal Medicine - [place] [address] [place] [address] Jaylon Gudino MD [address] [facility] [place] [address] Essential hypertension, benign (Primary Dx); Mixed hyperlipidemia; [...] COVID-19? No / Unsure 04/17/2020 9:46 AM AUTO DEALER documented as of this encounter Last Filed Vital Signs Vital Sign Reading Time Taken Comments Blood Pressure 128/64 04/17/2020 9:51 AM AUTO DEALER Pulse 56 04/17/2020 9:51 AM AUTO DEALER Temperature 35.3 ??C (95.5 ??F) 04/17/2020 9:51 AM CS T Respiratory Rate - - Oxygen Saturation 97% 04/17/2020 9:51 AM AUTO DEALER Inhaled Oxygen Concentration - - Weight 82.1 kg (181 lb) 04/17/2020 9:51 AM AUTO DEALER Height - - Body Mass Index 25.97 01/16/2020 10:20 AM AUTO DEALER documented in this encounter Progress Notes * India Terrell, SUPERVISOR POLICY CHANGE CLERKS - 04/17/2020 10:00 AM CST Bacilio Ramirez, [...] supper, d/c prior Rx 01/16/20 Yes Jaylon Gudnio MD tamsulosin (FLOMAX) 0.4 MG Capsule Take [...] with the patient today: Smoking and Depression DEALER * Jaylon Gudino MD - 04/17/2020 10:00 AM CST PROGRESS NOTE [facility] - INTERNAL MEDICINE [address] [place] [address] PHONE: [phone] FAX: [phone] 04/17/2020 NAME: Bacilio Ramirez, : 1945, Assessment [...] of breath. Generalized itching persist. Seen by electronic drafter and recommended to change his amlodipine since [...] By: Jaylon Gudino MD 04/17/2020 10:50 AM AUTO DEALER DEALER documented in this encounter Procedure Notes * Jaylon Gudino MD - 04/17/2020 10:00 AM CSTProcedure(s): 63798 PRO REMOVE IMPACT CERUMEN W/INSTRUMENTS-BLT Pre-Procedure Diagnose(s): Impacted cerumen of both ears Post-Procedure Diagnose(s): Impacted cerumen of both ears Under direct vision impacted cerumen removed from both ears with loop curette it was. Patient tolerated procedure well. DEALER documented in this encounter Plan of Treatment Upcoming Encounters Date Type Department Care Team (Late st Contact Info) Description 04/25/2024 9:30 AM AUTO DEALER Office Visit [facility] - Internal Medicine [facility] [address] [place] [address] Jaylon Gudino MD [address] [place] [address] documented as of this encounter Results * HEMOGLOBIN A1C W/ ESTIMATED GLUCOSE (04/17/2020) HGB-A1C 5.9 % Blood 04/17/2020 Result [facility] Jayoln Gudino MD CHEMISTRY ORDERABLES Final Result * LIPID PANEL (04/17/2020) TOTAL CHOLESTEROL 160 HDL 70 mg/dL LDL 52 0 - 130 mg/dL Blood 04/17/2020 Result [facility] Jaylon Gudino MD CHEMISTRY ORDERABLES Final Result * BASIC METABOLIC PANEL W/ CALCIUM TOTAL (04/17/2020) Blood Result [facility] Jaylon Gudino MD CHEMISTRY ORDERABLES Final Result [...] Total Score: 0 04/17/19 21 9:00 AM AUTO DEALER documented as of this encounter Care Teams Supervisor Evaporator Relationship Specialty Start Date End Date Jaylon Gudino MD [address] [place] [address] PCP - General Internal Medicine 01/16/16 documented as of this encounter
--- OUTSIDE RECORDS SUMMARY | 2024-03-03 12:46 | XMS_ITS | Encounter Summary ---
Author Organization [facility] Address [address] [place] [address] Phone Care Team Providers Care Registered Dental Assistant Name Role Phone Jaylon Gudino MD Primary Care Provider [phone] Reason for Visit * Reason Comments Medication Refill Encounter Details Date Type Department Care Team (Late st Contact Info) Description 11/17/2020 Refill [facility] Medical Group - Internal Medicine - [place] [address] [place] [address] Jaylon Gudino MD [address] [place] [address] Medication Refill Social History Tobacco Use Types [...] st Contact Info) Description 04/25/2024 9:30 AM NURSING HOME PHYSICIAN Office Visit [facility] - Internal Medicine [facility] [address] [place] [address] Jaylon Gudino MD [address] [place] [address] documented as of this encounter Visit Diagnoses Not on filedocumented in this encounter Additional Health Concerns Assessment Noted Time PHQ-9 Depression Total Score: 0 04/17/19 21 9:00 AM NURSING HOME PHYSICIAN documented as of this encounter Care Teams Registered Dental Assistant Relationship Specialty Start Date End Date Jaylon Gudino MD [address] [place] [address] PCP - General Internal Medicine 01/16/16 documented as of this encounter
--- OUTSIDE RECORDS SUMMARY | 2024-03-03 12:46 | XMS_ITS | Encounter Summary ---
Author Organization [facility] Address [address] [place] [address] Phone Care Team Providers Care Drying Rack Changer Name Role Phone Jaylon Gudino MD Primary Care Provider Encounter Details Date Type Department Care Team (Late st Contact Info) Description 04/18/2020 Telephone [facility] - Internal Medicine - [place] [address] [place] [address] Jaylon Gudino MD [address] [facility] [place] [address] Social History Tobacco Use Types [...] COVID-19? No / Unsure 04/17/2020 9:46 AM RIBBON BLOCKER documented as of this encounter Miscellaneous Notes * Telephone Encounter - India Terrell CMA - 04/18/2020 1:53 PM RIBBON BLOCKER Spoke to patient and gave lab results. ON BLOCKER * Telephone Encounter - Keysha Loya RN - 04/18/2020 8:28 AM CST ----- Message from Jaylon Gudino MD sent at 04/17/2020 2:27 PM RIBBON BLOCKER ----- Labs okay. Continue current medications ON BLOCKER documented in this encounter Plan of Treatment Upcoming Encounters Date Type Department Care Team (Late st Contact Info) Description 04/25/2024 9:30 AM RIBBON BLOCKER Office Visit [facility] - Internal Medicine [facility] [address] [place] [phone] Jaylon Gudino MD [address] [place] [address] documented as of this encounter Visit Diagnoses Not on filedocumented in this encounter Additional Health Concerns Assessment Noted Time PHQ-9 Depression Total Score: 0 04/17/19 21 9:00 AM RIBBON BLOCKER documented as of this encounter Care Teams Drying Rack Changer Relationship Specialty Start Date End Date Jaylon Gudino MD [address] [place] [address] PCP - General Internal Medicine 01/16/16 documented as of this encounter
--- OUTSIDE RECORDS SUMMARY | 2024-03-03 12:46 | XMS_ITS | Encounter Summary ---
Author Organization [facility] Address [address] [place] [address] Phone Care Team Providers Care Catalytic Converter Operator Helper Name Role Phone Jaylon Gudino MD Primary Care Provider Reason for Visit * Reason Comments Medication Refill Encounter Details Date Type Department Care Team (Late st Contact Info) Description 03/10/2020 Refill [facility] - Internal Medicine - [place] [address] [place] [address] Jaylon Gudino MD [address] [place] [address] Medication Refill Social History Tobacco Use Types [...] 8:01 AM CST Please review and sign. MACHINE OPERATOR documented in this encounter Plan of Treatment Upcoming Encounters Date Type Department Care Team (Late st Contact Info) Description 04/25/2024 9:30 AM DIE MACHINE OPERATOR Office Visit [facility] - Internal Medicine [place] [address] [place] [address] Jaylon Gudino MD [address] [place] [address] documented as of this encounter Visit Diagnoses Not on filedocumented in this encounter Additional Health Concerns Assessment Noted Time PHQ-9 Depression Total Score: 0 12/21/19 20 9:00 AM CDT documented as of this encounter Care Teams Catalytic Converter Operator Helper Relationship Specialty Start Date End Date Jaylon Gudino MD [address] [place] [address] PCP - General Internal Medicine 01/16/16 documented as of this encounter
--- OUTSIDE RECORDS SUMMARY | 2024-03-03 12:46 | XMS_ITS | Encounter Summary ---
Author Organization [facility] [employer] Care Team Providers Care Type Inspector Name Role Phone Jaylon Gudino MD Primary Care Provider [phone] Encounter Details Date Type Department Care Team [...] st Contact Info) Description 04/25/2024 9:30 AM VP MOBILE PRODUCTS Office Visit [facility] Medical Group - Internal Medicine - [place] [address] [place] [address] Jaylon Gudino MD [address] [place] [address] documented as of this encounter Visit Diagnoses Not on filedocumented in this encounter Additional Health Concerns Assessment Noted Time PHQ-9 Depression Total Score: 0 04/17/19 21 9:00 AM VP [employer]ODUCTS documented as of this encounter Care Teams Type Inspector Relationship Specialty Start Date End Date Jaylon Gudino MD [address] [place] [address] PCP - General Internal Medicine 01/16/16 documented as of this encounter
--- OUTSIDE RECORDS SUMMARY | 2024-03-03 12:46 | XMS_ITS | Encounter Summary ---
Author Organization [facility] Address [address] [place] [address] Phone Care Team Providers Care Head Boys Tennis Coach Name Role Phone Jaylon Gudino MD Primary Care Provider [phone] Reason for Visit * Reason Comments Medication Refill Encounter Details Date Type Department Care Team (Late st Contact Info) Description 02/03/2020 Refill [facility] Medical Group - Internal Medicine - [place] [address] [place] [phone] Jaylon Gudino MD [address] [place] [address] Medication Refill Social History Tobacco Use Types [...] COVID-19? No / Unsure 01/16/2020 10:17 AM HANDBAG FRAMER documented as of this encounter Miscellaneous Notes * Telephone Encounter - Keysha Loya RN - 02/06/2020 7:43 AM CST Please review and sign. BAG FRAMER documented in this encounter Plan of Treatment Upcoming Encounters Date Type Department Care Team (Late st Contact Info) Description 04/25/2024 9:30 AM HANDBAG FRAMER [facility] [place] [address] [place] [address] Jaylon Gudino MD [address] [place] [address] documented as of this encounter Visit Diagnoses Not on filedocumented in this encounter Additional Health Concerns Assessment Noted Time PHQ-9 Depression Total Score: 0 12/21/19 20 9:00 AM CDT documented as of this encounter Care Teams Head Boys Tennis Coach Relationship Specialty Start Date End Date Jaylon Gudino MD [address] [place] [address] PCP - General Internal Medicine 01/16/16 documented as of this encounter
--- OUTSIDE RECORDS SUMMARY | 2024-03-03 12:46 | XMS_ITS | Encounter Summary ---
Author Organization [facility] Address [address] [place] [address] Phone Care Team Providers Care Rock Crushing Machine Operator Name Role Phone Jaylon Gudino MD Primary Care Provider Reason for Visit * Reason Comments Medication Refill Encounter Details Date Type Department Care Team (Late st Contact Info) Description 05/28/2020 Refill [facility] Medical Group - Internal Medicine - [place] [address] [place] [address] Jaylon Gudino MD [address] [place] [address] Medication Refill Social History Tobacco Use Types [...] st Contact Info) Description 04/25/2024 9:30 AM OPEN TENTER OPERATOR Office Visit [facility] Medicine [facility] [address] [place] [address] Jaylon Gudino MD [address] [place] [address] documented as of this encounter Visit Diagnoses Not on filedocumented in this encounter Additional Health Concerns Assessment Noted Time PHQ-9 Depression Total Score: 0 04/17/19 21 9:00 AM OPEN TENTER OPERATOR documented as of this encounter Care Teams Rock Crushing Machine Operator Relationship Specialty Start Date End Date Jaylon Gudino MD [address] [place] [address] PCP - General Internal Medicine 01/16/16 documented as of this encounter
--- OUTSIDE RECORDS SUMMARY | 2024-03-03 12:46 | XMS_ITS | Encounter Summary ---
Author Organization [facility] Address [address] [place] [address] Phone Care Team Providers Care Exercise Equipment Repair Technician Name Role Phone Jaylon Gudino MD Primary Care Provider Reason for Visit * Reason Onset Date Comments Results 08/07/2020 abdominal US Encounter Details Date Type Department Care Team (Late st Contact Info) Description 08/07/2020 Telephone [facility] - [place] [address] [place] [address] Jaylon Gudino MD [address] [facility] [place] [address] Results (abdominal US) Social History [...] st Contact Info) Description 04/25/2024 9:30 AM LATIN PROFESSOR Office Visit [facility] Medicine - [place] [address] [place] [address] Jaylon Gudino MD [address] [place] [address] documented as of this encounter Visit Diagnoses Not on filedocumented in this encounter Additional Health Concerns Assessment Noted Time PHQ-9 Depression Total Score: 0 04/17/19 21 9:00 AM LATIN PROFESSOR documented as of this encounter Care Teams Exercise Equipment Repair Technician Relationship Specialty Start Date End Date Jaylon Gudino MD [address] [place] [address] PCP - General Internal Medicine 01/16/16 documented as of this encounter
--- OUTSIDE RECORDS SUMMARY | 2024-03-03 12:46 | XMS_ITS | Encounter Summary ---
Author Organization [facility] Address [address] [place] [address] Phone Care Team Providers Care Tool Inspector Name Role Phone Jaylon Gudino MD Primary Care Provider Reason for Visit * Reason Comments Medication Refill Encounter Details Date Type Department Care Team (Late st Contact Info) Description 02/16/2020 Refill [facility] Medical Group - Internal Medicine - [place] [address] [place] [phone] Jaylon Gudino MD [address] [place] [address] Medication Refill Social History Tobacco Use Types [...] 8:08 AM CST Please review and sign. WORKER DAIRY documented in this encounter Plan of Treatment Upcoming Encounters Date Type Department Care Team (Late st Contact Info) Description 04/25/2024 9:30 AM FARMWORKER DAIRY [facility] Visit [facility] [place] [address] [place] [address] Jaylon Gudino MD [address] [place] [address] documented as of this encounter Visit Diagnoses Not on filedocumented in this encounter Additional Health Concerns Assessment Noted Time PHQ-9 Depression Total Score: 0 12/21/19 20 9:00 AM CDT documented as of this encounter Care Teams Tool Inspector Relationship Specialty Start Date End Date Jaylon Gudino MD [address] [place] [address] PCP - General Internal Medicine 01/16/16 documented as of this encounter
--- OUTSIDE RECORDS SUMMARY | 2024-03-03 12:46 | XMS_ITS | Encounter Summary ---
Author Organization [facility] Address [address] [place] [address] Phone Care Team Providers Care Medical Surgery Nurse Name Role Phone Jaylon Gudino MD Primary Care Provider [phone] Reason for Referral * Radiology Services (Routine) - Closed Specialty Diagnoses / Procedures Referred By Contac t Referred To Contact Radiology Diagnoses Abdominal aortic aneurysm (AAA) without rupture (HCC) Procedures US AORTA HOLDEN SCALE ONLY Jaylon Gudino MD [address] [place] [address] Phone: tel: fax: Referral ID Status Reason Start Date Expiration Date Visits Re quested Visits Authorized [id number] Closed 07/26/2020 1 1 Reason for Visit * Radiology Services (Routine) - Closed Specialty Diagnoses / Procedures Referred By Contac t Referred To Contact Radiology Diagnoses Abdominal aortic aneurysm (AAA) without rupture (HCC) Procedures US AORTA HOLDEN SCALE ONLY Jaylon Gudino MD [address] [place] [address] Phone: tel: fax: Referral ID Status Reason Start Date Expiration Date Visits Re quested Visits Authorized [id number] Closed 07/26/2020 1 1 Encounter Details Date Type Department Care Team (Late st Contact Info) Description 08/06/2020 10:13 AM CDT - 08/06/2020 11:59 PM CDT Hospital Encounter [facility] Ultrasound [address] [place] [address] Jaylon Gudino MD [address] [place] [address] Discharge Disposition: Discharged to home or Selfcare [...] st Contact Info) Description 04/25/2024 9:30 AM STAFF ANALYST [facility] Visit [facility] - [place] [address] [place] [address] Jaylon Gudino MD [address] [facility] [address] documented as of this encounter Procedures Procedure [...] AM T: ??08/06/2020 11:53 AM Report ID: [id number] Reading Location: ??[id number] Procedure Note Anthony Almeida MD - 08/06/2020 [...] Anthony Almeida M.D. JA: USAMA Report ID: [id number] Reading Location: [id number] IMPRESSION: Mild diffuse aneurysmal prominence of the abdominal aorta measuring a maximum of 2.9 cm. us Jaylon Gudino MD IMG US ORDERABLES Final Res ult documented in this encounter Visit Diagnoses Diagnosis Abdominal aortic aneurysm (AAA) without rupture (HCC) documented in this encounter Additional Health Concerns Assessment Noted Time PHQ-9 Depression Total Score: 0 04/17/19 21 9:00 AM STAFF ANALYST documented as of this encounter Care Teams Medical Surgery Nurse Relationship Specialty Start Date End Date Jaylon Gudino MD [address] [place] [address] PCP - General Internal Medicine 01/16/16 documented as of this encounter
--- OUTSIDE RECORDS SUMMARY | 2024-03-03 12:46 | XMS_ITS | Encounter Summary ---
Author Organization [facility] [employer] Care Team Providers Care Chest Painting Leader Name Role Phone Jaylno Gudino MD Primary Care Provider [phone] Encounter Details Date Type Department Care Team [...] st Contact Info) Description 04/25/2024 9:30 AM FURNITURE MANAGER Office Visit [facility] Medical Group - Internal Medicine - [place] [address] [place] [address] Jaylon Gudino MD [address] [place] [address] documented as of this encounter Visit Diagnoses Not on filedocumented in this encounter Additional Health Concerns Assessment Noted Time PHQ-9 Depression Total Score: 0 04/17/19 21 9:00 AM FURNITURE MANAGER documented as of this encounter Care Teams Chest Painting Leader Relationship Specialty Start Date End Date Jaylon Gudino MD [address] [place] [address] PCP - General Internal Medicine 01/16/16 documented as of this encounter
--- OUTSIDE RECORDS SUMMARY | 2024-03-03 12:46 | XMS_ITS | Encounter Summary ---
Author Organization [facility] [employer] Care Team Providers Care Retail Equipment Associate Name Role Phone Jaylon Gudino MD Primary Care Provider [phone] Encounter Details Date Type Department Care Team [...] st Contact Info) Description 04/25/2024 9:30 AM CUT OFF MACHINE OPERATOR Office Visit [facility] Medical Group - Internal Medicine - [place] [address] [place] [address] Jaylon Gudino MD [address] [place] [address] documented as of this encounter Visit Diagnoses Not on filedocumented in this encounter Additional Health Concerns Assessment Noted Time PHQ-9 Depression Total Score: 0 04/17/19 21 9:00 AM CUT OFF MACHINE OPERATOR documented as of this encounter Care Teams Retail Equipment Associate Relationship Specialty Start Date End Date Jaylon Gudino MD [address] [place] [address] PCP - General Internal Medicine 01/16/16 documented as of this encounter
--- OUTSIDE RECORDS SUMMARY | 2024-03-03 12:46 | XMS_ITS | Encounter Summary ---
Author Organization [facility] Address [address] [place] [address] Phone Care Team Providers Care Supervisor Heat Treating Name Role Phone Jaylon Gudino MD Primary Care Provider [phone] Reason for Referral * Consult, Test & Initiate Treatment (Routine) - Closed Specialty Diagnoses / Procedures Referred By Contac t Referred To Contact Diagnoses Pruritus Jaylon Gudino MD [address] [place] [address] Phone: tel: fax: Zain Manuel MD 2 [facility] [address] [address] Phone: tel: fax: Referral ID Status Reason Start Date Expiration Date Visits Re quested Visits Authorized [id number] Closed 09/10/2020 1 1 Scheduling Instructions Bacilio [...] Visit [facility] - Internal Medicine [facility] [address] [place] [address] Jaylon Gudino MD [address] [place] [address] Essential hypertension, benign (Primary Dx); Pruritus; Mixed [...] this encounter Progress Notes * India Terrell, HOSPICE NURSE PRACTITIONER - 09/10/2020 10:15 AM CDT Bacilio Ramirez, [...] by mouth 2 times daily. 07/26/20 Yes Jaylon Gudino MD losartan (COZAAR) 100 [...] - 09/10/2020 10:15 AM CDT PROGRESS NOTE [facility] - INTERNAL MEDICINE [address] [address] PHONE: [phone] FAX: [phone] 09/10/2020 NAME: Bacilio Ramirez, : 1945, Assessment ASSESSMENT & PLAN: Return in about 3 months (around 12/11/2020) for htn. Diagnoses and all orders for this visit: Essential hypertension, benign Pruritus Comments: Will try hydroxyzine 25 mg every 6 hr as needed. Refer to pharmacy clinical coordinator specialist. Orders: - EXTERNAL ALLERGY REFERRAL; Future [...] st Contact Info) Description 04/25/2024 9:30 AM CUSTOMER TRAINING SPECIALIST Office Visit [facility] - Internal Medicine [place] [address] [place] [address] Jaylon Gudino MD [address] [place] [address] Scheduled Referrals Name Type Priority Associated Diagnoses Orde r Schedule EXTERNAL ALLERGY REFERRAL Outpatient Referral Routine Pruritus Expected: 09/24/2020, Expires: 12/11/2020 documented as of this encounter Visit Diagnoses Diagnosis Essential hypertension, benign- Primary Pruritus Unspecified pruritic disorder Mixed hyperlipidemia GERD without esophagitis Esophageal reflux documented in this encounter Additional Health Concerns Assessment Noted Time PHQ-9 Depression Total Score: 0 04/17/19 21 9:00 AM CUSTOMER TRAINING SPECIALIST documented as of this encounter Care Teams Supervisor Heat Treating Relationship Specialty Start Date End Date Jaylon Gudino MD [address] [place] [address] PCP - General Internal Medicine 01/16/16 documented as of this encounter
--- OUTSIDE RECORDS SUMMARY | 2024-03-03 12:46 | XMS_ITS | Encounter Summary ---
Author Organization [facility] Address [address] [place] [address] Phone Care Team Providers Care Loan Manager Name Role Phone Jaylon Gudino MD Primary Care Provider [phone] Reason for Visit * Reason Comments Medication Refill Encounter Details Date Type Department Care Team (Late st Contact Info) Description 08/17/2020 Refill [facility] - Internal Medicine - [place] [address] [place] [address] Jaylon Gudino MD [address] [place] [address] Medication Refill Social History Tobacco Use Types [...] Contact Info) Description 04/25/2024 9:30 AM ROUND UP RING HAND Office Visit [facility] - Internal Medicine [place] [address] [place] [address] Jaylon Gudino MD [address] [place] [address] documented as of this encounter Visit Diagnoses Not on filedocumented in this encounter Additional Health Concerns Infection Onset Date Last Indicated Resolved Time COVID - 19 02/06/2022 02/06/2022 02/16/2022 12:1 6 AM ROUND UP RING HAND Assessment Noted Time PHQ-9 Depression Total Score: 0 04/17/19 21 9:00 AM ROUND UP RING HAND documented as of this encounter Care Teams Loan Manager Relationship Specialty Start Date End Date Jaylon Gudino MD [address] [place] [address] PCP - General Internal Medicine 01/16/16 documented as of this encounter
--- OUTSIDE RECORDS SUMMARY | 2024-03-03 12:46 | XMS_ITS | Encounter Summary ---
Author Organization [facility] Address [address] [place] [address] Phone Care Team Providers Care Pr Internship Name Role Phone Jaylon Gudino MD Primary Care Provider [phone] Reason for Visit * Reason Comments Medication Refill Encounter Details Date Type Department Care Team (Late st Contact Info) Description 06/05/2020 Refill [facility] Medical Group - Internal Medicine - [place] [address] [place] [address] Jaylon Gudino MD [address] [place] [address] Medication Refill Social History Tobacco Use Types [...] st Contact Info) Description 04/25/2024 9:30 AM FIBER OPTIC SPLICER [facility] Visit [facility] [address] [place] [address] Jaylon Gudino MD [address] [place] [address] documented as of this encounter Visit Diagnoses Not on filedocumented in this encounter Additional Health Concerns Assessment Noted Time PHQ-9 Depression Total Score: 0 04/17/19 21 9:00 AM FIBER OPTIC SPLICER documented as of this encounter Care Teams Pr Internship Relationship Specialty Start Date End Date Jaylon Gudino MD [address] [place] [address] PCP - General Internal Medicine 01/16/16 documented as of this encounter
--- OUTSIDE RECORDS SUMMARY | 2024-03-03 12:46 | XMS_ITS | Encounter Summary ---
Author Organization [facility] Address [address] [place] [address] Phone Care Team Providers Care Bee Tender Name Role Phone Jaylon Gudino MD Primary Care Provider [phone] Reason for Visit * Reason Comments Medication Refill Encounter Details Date Type Department Care Team (Late st Contact Info) Description 2020 Refill [facility] Medical Group - Internal Medicine - [place] [address] [place] [address] Jaylon Gudino MD [address] [place] [address] Medication Refill Social History Tobacco Use Types [...] Contact Info) Description 04/25/2024 9:30 AM WASTE RECYCLER Office Visit [facility] Medical Group - Internal Medicine [facility] [address] [place] [address] Jaylon Gudino MD [address] [place] [address] documented as of this encounter Visit Diagnoses Not on filedocumented in this encounter Additional Health Concerns Assessment Noted Time PHQ-9 Depression Total Score: 0 04/17/19 21 9:00 AM WASTE RECYCLER documented as of this encounter Care Teams Bee Tender Relationship Specialty Start Date End Date Jaylon Gudino MD [address] [place] [address] PCP - General Internal Medicine 01/16/16 documented as of this encounter
--- OUTSIDE RECORDS SUMMARY | 2024-03-03 12:46 | XMS_ITS | Encounter Summary ---
Author Organization [facility] Address [address] [place] [address] Phone Care Team Providers Care Chapter Relations Administrator Name Role Phone Jaylon Gudino MD Primary Care Provider Reason for Visit * Reason Comments Medication Refill Encounter Details Date Type Department Care Team (Late st Contact Info) Description 05/03/2020 Refill [facility] Medical Group - Internal Medicine - [place] [address] [place] [address] Jaylon Gudino MD [address] [place] [address] Medication Refill Social History Tobacco Use Types [...] COVID-19? No / Unsure 04/17/2020 9:46 AM HEAD AUTOMATIC SAWYER documented as of this encounter Miscellaneous Notes * Telephone Encounter - Keysha Loya RN - 05/04/2020 8:35 AM CST Please review and sign. AUTOMATIC SAWYER documented in this encounter Plan of Treatment Upcoming Encounters Date Type Department Care Team (Late st Contact Info) Description 04/25/2024 9:30 AM HEAD AUTOMATIC SAWYER [facility] Visit [facility] - [place] [address] [place] [address] Jaylon Gudino MD [address] [place] [address] documented as of this encounter Visit Diagnoses Not on filedocumented in this encounter Additional Health Concerns Assessment Noted Time PHQ-9 Depression Total Score: 0 04/17/19 21 9:00 AM HEAD AUTOMATIC SAWYER documented as of this encounter Care Teams Chapter Relations Administrator Relationship Specialty Start Date End Date Jaylon Gudino MD [address] [place] [address] PCP - General Internal Medicine 01/16/16 documented as of this encounter
--- OUTSIDE RECORDS SUMMARY | 2024-03-03 12:46 | XMS_ITS | Encounter Summary ---
Author Organization [facility] Address [address] [place] [address] Phone Care Team Providers Care Emissions Engineer Name Role Phone Jaylon Gudino MD Primary Care Provider Reason for Visit * Reason Comments Medication Refill Encounter Details Date Type Department Care Team (Late st Contact Info) Description 12/03/2020 Refill [facility] Medical Group - Internal Medicine - [place] [address] [place] [address] Jaylon Gudino MD [address] [place] [address] Medication Refill Social History Tobacco Use Types [...] Office Visit Jaylon Gudino MD [facility] [place] 07/26/20 Office Visit Jaylon Gudino MD [facility] [place] 04/17/20 Office Visit Jaylon Gudino MD [facility] [place] 01/16/20 Office Visit Jaylon Gudino MD [facility] [place] 12/21/19 Office Visit Jaylon Gudino MD [facility] [place] Showing recent visits within past 365 days and meeting all other requirements Future Appointments Date Type Provider Dept 12/17/20 Appointment Jaylon Gudino MD [facility] [place] Showing future appointments within next 90 days [...] Office Visit Jaylon Gudino MD [facility] [place] 07/26/20 Office Visit Jaylon Gudino MD [facility] [place] 04/17/20 Office Visit Jaylon Gudino MD [facility] [place] 01/16/20 Office Visit Jaylon Gudino MD [facility] [place] 12/21/19 Office Visit [facility] Gudino MD [facility] [place] Showing recent visits within past 365 days and meeting all other requirements Future Appointments Date Type Provider Dept 12/17/20 Appointment Jaylon Gudino MD [facility] [place] Showing future appointments within next 90 days and meeting all other requirements documented in this encounter Plan of Treatment Upcoming Encounters Date Type Department Care Team (Late st Contact Info) Description 04/25/2024 9:30 AM TANK COOPER Office Visit [facility] [address] [place] [address] Jaylon Gudino MD [address] [place] [address] documented as of this encounter Visit Diagnoses Not on filedocumented in this encounter Additional Health Concerns Assessment Noted Time PHQ-9 Depression Total Score: 0 04/17/19 9:00 AM TANK COOPER documented as of this encounter Care Teams Emissions Engineer Relationship Specialty Start Date End Date Jaylon Gudino MD [address] [place] [address] PCP - General Internal Medicine 01/16/16 documented as of this encounter
--- OUTSIDE RECORDS SUMMARY | 2024-03-03 12:46 | XMS_ITS | Encounter Summary ---
Author Organization [facility] [employer] Care Team Providers Care Nut Tightener Name Role Phone Jaylon Gudino MD Primary Care Provider +1- [phone] Encounter Details Date Type Department Care Team [...] st Contact Info) Description 04/25/2024 9:30 AM DATA BASE DESIGN ANALYST Office Visit [facility] Medical Group - Internal Medicine - [place] [address] [place] [address] Jaylon Gudino MD [address] [place] [address] documented as of this encounter Visit Diagnoses Not on filedocumented in this encounter Additional Health Concerns Assessment Noted Time PHQ-9 Depression Total Score: 0 04/17/19 21 9:00 AM DATA BASE DESIGN ANALYST documented as of this encounter Care Teams Nut Tightener Relationship Specialty Start Date End Date Jaylon Gudino MD [address] [place] [address] PCP - General Internal Medicine 01/16/16 documented as of this encounter
--- OUTSIDE RECORDS SUMMARY | 2024-03-03 12:46 | XMS_ITS | Encounter Summary ---
Author Organization [facility] Address [address] [place] [address] Phone Care Team Providers Care Surveillance Supervisor Name Role Phone Jaylon Gudino MD Primary Care Provider Reason for Visit * Reason Comments Hyperlipidemia 3 mo f/u Wax in Ear both ears Encounter Details Date Type Department Care Team (Late st Contact Info) Description 12/17/2020 10:00 AM CDT Office Visit [facility] Medical Group - Internal Medicine - [place] [address] [place] [address] Jaylon Gudino MD [address] [place] [address] Essential hypertension, benign (Primary Dx); Mixed hyperlipidemia; [...] - INTERNAL MEDICINE [address] [place] [address] PHONE: [phone] FAX: [phone] 12/17/2020 NAME: Bacilio Ramirez, : 1945, Assessment [...] st Contact Info) Description 04/25/2024 9:30 AM MARKETING CO OP Office Visit [facility] - Internal Medicine - [place] [address] [place] [phone] Jaylon Gudino MD [address] [place] [address] documented as of this encounter Procedures Procedure [...] <=200 mg/dL 12/17/2020 4:30 PM CDT [facility] TRIGLYCERIDES 160(H) <150 mg/dL 12/17/2020 4:30 PM [facility]T [facility] HDL CHOLESTEROL 67.7 >40 mg/dL 4:30 PM CDT [facility] LDL 62 5 - 130 mg/dL 12/17/2020 4:30 PM CDT [facility] VLDL 32 5 - 55 mg/dL 12/17/2020 4:30 PM CDT [facility] CHOL/HDL RATIO 2.4 0.0 - 4.4 12/17/2020 4:30 PM CDT [facility] NON-HDL CHOLESTEROL 94.3 <130 mg/dL 12/17/2020 4:30 PM CDT [facility] Blood Venipuncture / Unknown 12/17/2020 10:56 AM CDT 12/17/2020 10:56 AM CDT Jaylon Gudino MD CHEMISTRY ORDERABLES Final Result [facility] [address] [place] [address] * (ABNORMAL) CMP (COMPREHENSIVE METABOLIC PANEL) (12/17/2020 10:56 AM CDT) SODIUM 139 136 - 144 mmol/L 12/17/2020 4:30 PM CDT [facility] POTASSIUM 4.2 3.5 - 5.1 mmol/L 12/17/2020 4:30 PM CDT [facility] CHLORIDE 102 100 - 110 mmol/L 12/17/2020 4:30 PM CDT [facility] CO2, VENOUS 24 22 - 32 mmol/L 12/17/2020 4:30 PM CDT [facility] ANION GAP 17.2 8.0 - 20.0 mmol/L 12/17/2020 4:30 PM CDT [facility] GLUCOSE 105(H) 70 - 99 mg/dL 12/17/2020 4:30 PM CDT [facility] BUN 23 8 - 23 mg/dL 12/17/2020 4:30 PM CDT [facility] CREATININE, BLOOD 1.10 0.80 - 1.30 mg/dL 12/17/2020 4:30 PM CDT [facility] BUN/CREATININE RATIO 21(H) 12 - 20 ratio 12/17/2020 4:30 PM CDT [facility] TOTAL PROTEIN 7.6 6.0 - 8.3 g/dL 12/17/2020 4:30 PM CDT [facility] ALBUMIN 4.8 3.5 - 5.2 g/dL 12/17/2020 4:30 PM CDT [facility] Comment: The colormetric methods used for the determination of Albumin may lead to falsely elevated test results in patients suffering from renal failure or insufficiency due to interference with other proteins. A/G RATIO 1.7 1.0 - 2.0 12/17/2020 4:30 PM CDT [facility] CALCIUM 10.0 8.9 - 10.3 mg/dL 12/17/2020 4:30 PM CDT [facility] T BILI 0.7 <=1.2 mg/dL 12/17/2020 4:30 PM CDT [facility] SGOT (AST) 30 <=40 U/L 12/17/2020 4:30 PM CDT [facility] SGPT (ALT) 23 <=41 U/L 12/17/2020 4:30 PM CDT [facility] ALKALINE PHOSPHATASE 62 40 - 130 U/L 12/17/2020 4:30 PM CDT [facility] GFR, EST. NONAFRICAN >60 >=60 12/17/2020 4:30 PM CDT [facility] GFR, EST. >60 >=60 021 4:30 PM CDT [facility] Comment: Creatinine Clearance is the preferred criteria for selecting drug dose adjustments in renally impaired patients. ??The GFR is provided as additional pertinent clinical information. GFR is reported in mL/min/1.73 sq m. IS THE PATIENT REQUIRED TO BE FASTING? No 12/17/2020 4:30 PM CDT [facility] Blood Venipuncture / Unknown 12/17/2020 10:56 AM CDT 12/17/2020 10:56 AM CDT us Jaylon Gudino MD CHEMISTRY ORDERABLES Final Result [facility] [address] [place] [address] * REMOVE IMPACTED EAR WAX VIA INSTRUMENT [...] Total Score: 0 04/17/19 21 9:00 AM MARKETING CO OP documented as of this encounter Care Teams Surveillance Supervisor Relationship Specialty Start Date End Date Jaylon Gudino MD [address] [place] [address] PCP - General Internal Medicine 01/16/16 documented as of this encounter
--- OUTSIDE RECORDS SUMMARY | 2024-03-03 12:46 | XMS_ITS | Encounter Summary ---
Author Organization [facility] Address [address] [place] [address] Phone Care Team Providers Care Universal Banker Name Role Phone Jaylon Gudino MD Primary Care Provider [phone]- [phone] Reason for Referral * Radiology Services (Routine) - Closed Specialty Diagnoses / Procedures Referred By Lilly kraft Referred To Contact Radiology Diagnoses Abdominal aortic aneurysm (AAA) without rupture (HCC) Procedures US AORTA HOLDEN SCALE ONLY Jaylon Gudino MD [address] [place] [address] Phone: tel: fax: Referral ID Status Reason Start Date Expiration Date Visits Re quested Visits Authorized [id number] Closed 07/26/2020 1 1 Reason for Visit * Reason Comments Follow-up 3 mo f/u Wax in Ear both ears Encounter Details Date Type Department Care Team (Late st Contact Info) Description 07/26/2020 9:00 AM CDT Office Visit [facility] Medical Group - Internal Medicine - [place] [address] [place] [address] Jaylon Gudino MD [address] [place] [address] Essential hypertension, benign (Primary Dx); Abdominal aortic [...] this encounter Progress Notes * India Terrell, MEDICAID ANALYST - 07/26/2020 9:00 AM CDT Bacilio Alvarado [...] GROUP - INTERNAL MEDICINE [address] [place] [address] PHONE: [phone] FAX: [phone] 07/26/2020 NAME: Bacilio Ramirez, : 1945, Assessment [...] worse in the afternoon. Has been to terminal worker. No definite cause has been identified. But [...] st Contact Info) Description 04/25/2024 9:30 AM NURSERY SCHOOL TEACHER Office Visit [facility] - Internal Medicine - [place] [address] [place] [address] Jaylon Gudino MD [address] [address] documented as of this encounter Results * [...] AM T: ??08/06/2020 11:53 AM Report ID: [id number] Reading Location: ??[id number] Procedure Note Anthony Almeida MD - 08/06/2020 [...] Anthony Almeida M.D. JA: USAMA Report ID: [id number] Reading Location: [id number] IMPRESSION: Mild diffuse aneurysmal prominence of the abdominal aorta measuring a maximum of 2.9 cm. Jaylon Gudino MD [facility] US ORDERABLES Final Res ult documented in [...] Total Score: 0 04/17/19 21 9:00 AM NURSERY SCHOOL TEACHER documented as of this encounter Care Teams Universal Banker Relationship Specialty Start Date End Date Jaylon Gudino MD [address] [place] [address] PCP - General Internal Medicine 01/16/16 documented as of this encounter
--- OUTSIDE RECORDS SUMMARY | 2024-03-03 12:46 | XMS_ITS | Encounter Summary ---
Author Organization [facility] [employer] Care Team Providers Care Comprehensive Ophthalmologist Name Role Phone Jaylon Gudino MD Primary Care Provider [phone]- [phone] Encounter Details Date Type Department Care Team [...] COVID-19? No / Unsure 04/17/2020 9:46 AM BLUEPRINT REPRODUCER documented as of this encounter Plan of Treatment Upcoming Encounters Date Type Department Care Team (Late st Contact Info) Description 04/25/2024 9:30 AM BLUEPRINT REPRODUCER Office Visit [facility] Medical Group - Internal Medicine - [place] [address] [place] [phone] Jaylon Gudino MD [address] [place] [address] documented as of this encounter Visit Diagnoses Not on filedocumented in this encounter Additional Health Concerns Assessment Noted Time PHQ-9 Depression Total Score: 0 04/17/19 21 9:00 AM BLUEPRINT REPRODUCER documented as of this encounter Care Teams Comprehensive Ophthalmologist Relationship Specialty Start Date End Date Jaylon Gudino MD [address] [place] [address] PCP - General Internal Medicine 01/16/16 documented as of this encounter
--- OUTSIDE RECORDS SUMMARY | 2024-03-03 12:46 | XMS_ITS | Encounter Summary ---
Author Organization [facility] Address [address] [place] [address] Phone Care Team Providers Care Director Of Primary Name Role Phone Jaylon Gudino MD Primary Care Provider Reason for Visit * Reason Comments Medication Refill Encounter Details Date Type Department Care Team (Late st Contact Info) Description 11/05/2020 Refill [facility] Medical Group - Internal Medicine - [place] [address] [place] [address] Jaylon Gudino MD [address] [place] [address] Medication Refill Social History Tobacco Use Types [...] 09/10/20 Office Visit Jaylon Gudino MD [facility] [place] 07/26/20 Office Visit Jaylon Gudino MD [facility] [place] 04/17/20 Office Visit Jaylon Gudino MD [facility] [place] 01/16/20 Office Visit Jaylon Gudino MD [facility] [place] 12/21/19 Office Visit Jaylon Gudino MD [facility] [place] Showing recent visits within past 365 days and meeting all other requirements Future Appointments Date Type Provider Dept 12/17/20 Appointment Jaylon Gudino MD [facility] [place] Showing future appointments within next 90 days and meeting all other requirements documented in this encounter Plan of Treatment Upcoming Encounters Date Type Department Care Team (Late st Contact Info) Description 04/25/2024 9:30 AM FARM MACHINE OPERATOR Office Visit [facility] Medical Group - Internal Medicine - [place] [address] [place] [address] Jaylon Gudino MD [address] [place] [address] documented as of this encounter Visit Diagnoses Not on filedocumented in this encounter Additional Health Concerns Assessment Noted Time PHQ-9 Depression Total Score: 0 04/17/19 9:00 AM FARM MACHINE OPERATOR documented as of this encounter Care Teams Director Of Primary Relationship Specialty Start Date End Date Jaylon Gudino MD [address] [place] [address] PCP - General Internal Medicine 01/16/16 documented as of this encounter
--- OUTSIDE RECORDS SUMMARY | 2024-03-03 12:46 | XMS_ITS | Encounter Summary ---
Author Organization [facility] Address [address] [place] [address] Phone Care Team Providers Care Forest Ecologist Name Role Phone Jaylon Gudino MD Primary Care Provider [phone] Encounter Details Date Type Department Care Team (Late st Contact Info) Description 06/06/2020 Telephone [facility] - Internal [facility] - [place] [address] [place] [address] Jaylon Gudino MD [address] [place] [address] Social History Tobacco Use Types [...] amlodipine 5 mg 2 x day Pharmacy: [facility] [address] [place] [address] Call back # [phone] documented in this encounter Plan of Treatment Upcoming Encounters Date Type Department Care Team (Late st Contact Info) Description 04/25/2024 9:30 AM ASSISTANT FOREMAN Office Visit [facility] - Internal [facility] [address] [place] [address] Jaylon Gudino MD [address] [place] [address] documented as of this encounter Visit Diagnoses Not on filedocumented in this encounter Additional Health Concerns Assessment Noted Time PHQ-9 Depression Total Score: 0 04/17/19 21 9:00 AM ASSISTANT FOREMAN documented as of this encounter Care Teams Forest Ecologist Relationship Specialty Start Date End Date Jaylon Gudino MD [address] [place] [address] PCP - General Internal Medicine 01/16/16 documented as of this encounter
--- OUTSIDE RECORDS SUMMARY | 2024-03-03 12:47 | XMS_ITS | Encounter Summary ---
Author Organization [facility] Address [address] [place] [address] Phone Care Team Providers Care 5Th Grade Teacher Name Role Phone Jaylon Gudino MD Primary Care Provider Reason for Visit * Reason Comments Follow-up 3 mo f/u Wax in Ear both ears Encounter Details Date Type Department Care Team (Late st Contact Info) Description 01/16/2020 10:30 AM LIQUID FLOOR AND WALL APPLIER Office Visit [facility] Medical Group - Internal Medicine - [place] [address] [place] [address] Jaylon Gudino MD [address] [facility] [place] [address] Essential hypertension, benign (Primary Dx); Mixed hyperlipidemia; [...] COVID-19? No / Unsure 01/16/2020 10:17 AM LIQUID FLOOR AND WALL APPLIER documented as of this encounter Last Filed Vital Signs Vital Sign Reading Time Taken Comments Blood Pressure 142/70 01/16/2020 10:20 AM LIQUID FLOOR AND WALL APPLIER Pulse 56 01/16/2020 10:20 AM LIQUID FLOOR AND WALL APPLIER Temperature 35.3 ??C (95.6 ??F) 01/16/2020 10:[address] Respiratory Rate - - Oxygen Saturation - - Inhaled Oxygen Concentration - - Weight 81.2 kg (179 lb) 01/16/2020 10:20 AM LIQUID FLOOR AND WALL APPLIER Height 177.8 cm (5' 10 ) 01/16/2020 10:20 AM LIQUID FLOOR AND WALL APPLIER Body Mass Index 25.68 01/16/2020 10:20 AM LIQUID FLOOR AND WALL APPLIER documented in this encounter Progress Notes * India Terrell, WATER QUALITY CONTROL ENGINEER - 01/16/2020 10:30 AM CST Bacilio Ramirez, [...] been addressed with the patient today: Smoking ID FLOOR AND WALL APPLIER * Jaylon Gudino MD - 01/16/2020 10:30 AM CST PROGRESS NOTE [facility] MEDICAL GROUP - INTERNAL MEDICINE [address] [place] [address] 01/16/2020 Bacilio Ramirez 1945 Chief Complaint Patient [...] By: Jaylon Gudino MD 01/16/2020 10:44 AM LIQUID FLOOR AND WALL APPLIER ID FLOOR AND WALL APPLIER documented in this encounter Plan of Treatment Upcoming Encounters Date Type Department Care Team (Late st Contact Info) Description 04/25/2024 9:30 AM LIQUID FLOOR AND WALL APPLIER Office Visit [facility] - Internal Medicine - [place] [address] [place] [address] Jaylon Gudino MD [address] [place] [address] documented as of this encounter Visit Diagnoses [...] documented as of this encounter Care Teams 5Th Grade Teacher Relationship Specialty Start Date End Date Jaylon Gudino MD [address] [place] [address] PCP - General Internal Medicine 01/16/16 documented as of this encounter
--- OUTSIDE RECORDS SUMMARY | 2024-03-03 12:47 | XMS_ITS | Encounter Summary ---
Author Organization [facility] Address [address] [place] [address] Phone Care Team Providers Care Computer Compositor Name Role Phone Jaylon Gudino MD Primary Care Provider [phone] Reason for Visit * Reason Comments Medication Refill Encounter Details Date Type Department Care Team (Late st Contact Info) Description 11/09/2019 Refill [facility] - [place] [address] [place] [address] Jaylon Gudino MD [address] [place] [address] Medication Refill Social History Tobacco Use Types [...] st Contact Info) Description 04/25/2024 9:30 AM ROUGH RICE TENDER Office Visit [facility] - Internal Medicine [facility] [address] [place] [phone] Jaylon Gudino MD [address] [place] [address] documented as of this encounter Visit Diagnoses Not on filedocumented in this encounter Care Teams Computer Compositor Relationship Specialty Start Date End Date Jaylon Gudino MD [address] [place] [address] PCP - General Internal Medicine 01/16/16 documented as of this encounter
--- OUTSIDE RECORDS SUMMARY | 2024-03-03 12:47 | XMS_ITS | Encounter Summary ---
Author Organization [facility] Address [address] [place] [address] Phone Care Team Providers Care Truck Body Builder Apprentice Name Role Phone Jaylon Gudino MD Primary Care Provider Encounter Details Date Type Department Care Team (Late st Contact Info) Description 01/02/2020 Refill [facility] - Internal [facility] - [place] [address] [place] [address] Jaylon Gudino MD [address] [facility] [place] [place] [address] Social History Tobacco Use Types [...] encounter Miscellaneous Notes * Telephone Encounter - Putney, Keysha A, RN - 01/02/2020 3:40 PM CST Order pended NCIAL MARKET DEALER * Telephone Encounter - Keysha Loya RN - 01/02/2020 3:40 PM CST ----- Message from Amy Lou sent at 01/02/2020 3:19 PM FINANCIAL MARKET DEALER ----- Regarding: new script DON NEEDS A NEW PRESCRIPTION FOR TAMSOLUTION HCL .4 MG (90 DAY SUPPLY) PHARMACY: [facility] Call back number:[phone] NCIAL MARKET DEALER documented in this encounter Plan of Treatment Upcoming Encounters Date Type Department Care Team (Late st Contact Info) Description 04/25/2024 9:30 AM FINANCIAL MARKET DEALER Office Visit [facility] - Internal [facility] [address] [place] [address] Jaylon Gudino MD [address] [place] [address] documented as of this encounter Visit Diagnoses Not on filedocumented in this encounter Additional Health Concerns Assessment Noted Time PHQ-9 Depression Total Score: 0 12/21/19 20 9:00 AM CDT documented as of this encounter Care Teams Truck Body Builder Apprentice Relationship Specialty Start Date End Date Jaylon Gudino MD [address] [place] [address] PCP - General Internal Medicine 01/16/16 documented as of this encounter
--- OUTSIDE RECORDS SUMMARY | 2024-03-03 12:47 | XMS_ITS | Encounter Summary ---
Author Organization [facility] Address [address] [place] [address] Phone Care Team Providers Care Business Support Administrator Name Role Phone Jaylon Gudino MD Primary Care Provider [phone] Reason for Visit * Reason Comments Medication Refill Encounter Details Date Type Department Care Team (Late st Contact Info) Description 12/09/2019 Refill [facility] Medical Group - Internal Medicine - [place] [address] [place] [address] Jaylon Gudino MD [address] [place] [address] Medication Refill Social History Tobacco Use Types [...] st Contact Info) Description 04/25/2024 9:30 AM SECURITIES DEALER Office Visit [facility] - Internal Medicine [place] [address] [place] [phone] Jaylon Gudino MD [address] [place] [address] documented as of this encounter Visit Diagnoses Not on filedocumented in this encounter Care Teams Business Support Administrator Relationship Specialty Start Date End Date Jaylon Gudino MD [address] [place] [address] PCP - General Internal Medicine 01/16/16 documented as of this encounter
--- OUTSIDE RECORDS SUMMARY | 2024-03-03 12:47 | XMS_ITS | Encounter Summary ---
Author Organization [facility] Address [address] [place] [address] Phone Care Team Providers Care Merchant Banker Name Role Phone Jaylon Gudino MD Primary Care Provider Reason for Visit * Reason Comments Medication Refill Encounter Details Date Type Department Care Team (Late st Contact Info) Description 01/02/2020 Refill [facility] - Internal Medicine - [place] [address] [place] [phone] Jaylon Gudino MD [address] [place] [address] Medication Refill Social History Tobacco Use Types [...] Keysha Loya RN - 01/02/2020 11:06 AM VACUUM SYSTEM TESTER Please review and sign. UM SYSTEM TESTER documented in this encounter Plan of Treatment Upcoming Encounters Date Type Department Care Team (Late st Contact Info) Description 04/25/2024 9:30 AM VACUUM SYSTEM TESTER Office Visit [facility] - Internal Medicine - [place] [address] [place] [address] Jaylon Gudino MD [address] [place] [address] documented as of this encounter Visit Diagnoses Not on filedocumented in this encounter Additional Health Concerns Assessment Noted Time PHQ-9 Depression Total Score: 0 12/21/19 20 9:00 AM CDT documented as of this encounter Care Teams Merchant Banker Relationship Specialty Start Date End Date Jaylon Gudino MD [address] [place] [address] PCP - General Internal Medicine 01/16/16 documented as of this encounter
--- OUTSIDE RECORDS SUMMARY | 2024-03-03 12:47 | XMS_ITS ---
Author Organization [facility] [employer] Address [address] [facility] [place] [address] [place] [address] Phone Care Team Providers Care Environmental Inspector Name Role Phone Jaylon Gudino MD Primary Care Provider OnCall Chronic Care Management Status:Declined (Declined) Start date:07/15/2023 Enrollment reason:Identified using claims or encounter data End date:07/20/2023 Decline reason:Uninterested Related social drivers of health:Intimate Partner Violence, Social Connections, Tobacco Use, Food Insecurity, Transportation Needs, Housing Stability Continued Care and Services Coordination
--- OUTSIDE RECORDS SUMMARY | 2024-03-03 12:47 | XMS_ITS | Encounter Summary ---
Author Organization [facility] [employer] Care Team Providers Care Diesel Engine Tester Name Role Phone Jaylon Gudino MD Primary Care Provider [phone] Encounter Details Date Type Department Care Team [...] st Contact Info) Description 04/25/2024 9:30 AM MEAT CUTTER APPRENTICE Office Visit [facility] Medical Group - Internal Medicine - [place] [address] [place] [address] Jaylon Gudino MD [address] [place] [address] documented as of this encounter Visit Diagnoses Not on filedocumented in this encounter Additional Health Concerns Assessment Noted Time PHQ-9 Depression Total Score: 0 12/21/19 20 9:00 AM CDT documented as of this encounter Care Teams Diesel Engine Tester Relationship Specialty Start Date End Date Jaylon Gudino MD [address] [place] [address] PCP - General Internal Medicine 01/16/16 documented as of this encounter
--- OUTSIDE RECORDS SUMMARY | 2024-03-03 12:47 | XMS_ITS | Encounter Summary ---
Author Organization [facility] Address [address] [place] [address] Phone Care Team Providers Care Wrapper Off Name Role Phone Jaylon Gudino MD Primary Care Provider [phone] Reason for Visit * Reason Comments Ringing in Ear both ears Encounter Details Date Type Department Care Team (Late st Contact Info) Description 12/21/2019 9:30 AM CDT [facility] - [place] [address] [place] [address] Jaylon Gudino MD [address] [facility] [address] Acute serous otitis media of left ear, [...] this encounter Progress Notes * India Terrell, RESEARCH SUPPORT SPECIALIST - 12/21/2019 9:30 AM CDT Bacilio Alvarado [...] - 12/21/2019 9:30 AM CDT PROGRESS NOTE [facility] - INTERNAL MEDICINE [address] [place] [address] 12/21/2019 Bacilio Ramirez 1945 Chief Complaint Patient [...] ??? losartan (COZAAR) 100 MG Tablet ??? znuzvxtl-sbguaajgd-gqgqjzttcjsgin (CORTISPORIN) 3.5-67945-7 Solution ??? niacin (NIASPAN) 500 MG Tablet [...] mouth 2times daily for 7 days. - eulsleur-eadrnwxaw-jbxxtivriteouv (CORTISPORIN) 3.5-00162-6 Solution; Place 5 Drops in affected ear(s) [...] st Contact Info) Description 04/25/2024 9:30 AM ABATTOIR MANAGER Office Visit [facility] - Internal Medicine - [place] [address] [place] [address] Jaylon Gudino MD [address] [facility] [place] [address] documented as of this encounter Visit Diagnoses [...] documented as of this encounter Care Teams Wrapper Off Relationship Specialty Start Date End Date Jaylon Gudino MD [address] [place] [address] PCP - General Internal Medicine 01/16/16 documented as of this encounter
--- OUTSIDE RECORDS SUMMARY | 2024-03-03 12:47 | XMS_ITS | Encounter Summary ---
Author Organization [facility] Address [address] [place] [address] Phone Care Team Providers Care Regulatory Affairs Associate Name Role Phone Jaylon Gudino MD Primary Care Provider Reason for Visit * Reason Comments Medication Refill Encounter Details Date Type Department Care Team (Late Contact Info) Description 12/08/2019 Refill [facility] Internal Medicine [facility] [address] [place] [address] Jaylon Gudino MD [address] [place] [address] Medication Refill Social History Tobacco [...] (Late Contact Info) Description 04/25/2024 9:30 AM COLORIST DYER Office Visit [facility] Internal Medicine [facility] [address] [place] [address] Jaylon Gudino MD [address] [place] [address] documented as of this encounter Visit Diagnoses Not on filedocumented in this encounter Additional Health Concerns Infection Onset Date Last Indicated Resolved Time COVID - 19 02/06/2022 02/06/2022 02/16/2022 12:1 6 AM COLORIST DYER documented as of this encounter Care Teams Regulatory Affairs Associate Relationship Specialty Start Date End Date Jaylon Gudino MD [address] [place] [address] PCP - General Internal Medicine 01/16/16 documented as of this encounter
--- OUTSIDE RECORDS SUMMARY | 2024-03-03 12:47 | XMS_ITS | Encounter Summary ---
Author Organization [facility] Address [address] [place] [address] Phone Care Team Providers Care Corporate Travel Coordinator Name Role Phone Jaylon Gudino MD Primary Care Provider Encounter Details Date Type Department Care Team (Late st Contact Info) Description 01/06/2020 Telephone [facility] - [place] [address] [place] [address] Jaylon Gudino MD [address] [place] [address] Social History Tobacco Use Types [...] Jaylon Gudino MD - 01/06/2020 4:33 PM IT COMMUNICATIONS SPECIALIST Sulfa allergy added COMMUNICATIONS SPECIALIST documented in this encounter Plan of Treatment Upcoming Encounters Date Type Department Care Team (Late st Contact Info) Description 04/25/2024 9:30 AM IT COMMUNICATIONS SPECIALIST Office Visit [facility] - Internal Medicine - [place] [address] [place] [address] Jaylon Gudino MD [address] [place] [address] documented as of this encounter Visit Diagnoses Not on filedocumented in this encounter Additional Health Concerns Assessment Noted Time PHQ-9 Depression Total Score: 0 12/21/19 20 9:00 AM CDT documented as of this encounter Care Teams Corporate Travel Coordinator Relationship Specialty Start Date End Date Jaylon Gudino MD [address] [place] [address] PCP - General Internal Medicine 01/16/16 documented as of this encounter
--- OUTSIDE RECORDS SUMMARY | 2024-03-03 12:47 | XMS_ITS | Encounter Summary ---
Author Organization [facility] [employer] Care Team Providers Care Engraver Block Name Role Phone Jaylon Gudino MD Primary Care Provider [phone] Encounter Details Date Type Department Care Team [...] COVID-19? No / Unsure 01/16/2020 10:17 AM SALESPERSON WIGS documented as of this encounter Plan of Treatment Upcoming Encounters Date Type Department Care Team (Late st Contact Info) Description 04/25/2024 9:30 AM SALESPERSON WIGS Office Visit [facility] - Internal Medicine - [place] [address] [place] [address] Jaylon Gudino MD [address] [place] [address] documented as of this encounter Visit Diagnoses Not on filedocumented in this encounter Additional Health Concerns Assessment Noted Time PHQ-9 Depression Total Score: 0 12/21/19 20 9:00 AM CDT documented as of this encounter Care Teams Engraver Block Relationship Specialty Start Date End Date Jaylon Gudino MD [address] [place] [address] PCP - General Internal Medicine 01/16/16 documented as of this encounter
== END 2024-02-25 08:33 | disposition home or self-care (01) ==
PROVIDERS: Emergency Provider Registered Nurse; PCP Internal Medicine
DX: U07.1 COVID-19 (principal); Z87.891 Personal history of nicotine dependence; I10 Essential (primary) hypertension; E78.5 Hyperlipidemia, unspecified
CPT/HCPCS: 87426; 99212; G0463

== ENCOUNTER 2024-11-11 15:29 | Emergency (ER) | payer MEDICARE, SELFPAY ==
--- NOTE | ~2024-11-11 | XR_ITS ---
EXAMINATION: XR chest 2V 11/11/2024 16:20 INDICATION: Cough and fatigue PROCEDURE: 2 view chest COMPARISON: 02/18/2017 FINDINGS: The lungs are clear. The cardiomediastinal silhouette is within normal limits. There are no pleural effusions. There is no pneumothorax suspected. There is focal chronic scarring right upper lobe. IMPRESSION: 1: NO ACUTE CARDIOPULMONARY DISEASE. Reviewed, dictated and finalized at location O.
--- NOTE | 2024-11-11 15:35 | ED.URI ---
HPI - URI/Sore Throat General Chief Complaint: Upper Respiratory Infection Stated Complaint: test said covid positive Time Seen by Provider: 11/11/24 16:08 Source: patient and RN notes reviewed Mode of arrival: ambulatory Limitations: no limitations History of Present Illness HPI Narrative: 79 y/o male with hx HTN presented for c/o nasal congestion, cough and fatigue x3 days. Not taking anything for symptoms. Denies sob, wheezing, n/v/d/f/c. Says he might have had a positive home covid test today but does not know if he read the test correctly. MD elicited complaint: cough Related Data Home Medications ?Medication ?Instructions ?Recorded ?Confirmed ?Last Taken ?Type amlodipine 5 mg tablet 5 mg PO BID 10/10/21 10/10/21 Unknown History valsartan 160 mg tablet 160 mg PO DAILY 10/10/21 10/10/21 Unknown History Allergies Allergy/AdvReac Type Severity Reaction Status Date / Time moxifloxacin Allergy Mild Rash Verified 11/11/24 15:40 Penicillins Allergy Mild Hives / Verified 11/11/24 15:40 Red Face amoxicillin Allergy Unknown Unknown Verified 11/11/24 15:40 Sulfa (Sulfonamide Allergy Rash Verified 11/11/24 15:40 Antibiotics) acipex Allergy Intermediate Unknown Uncoded 11/11/24 15:40 Review of Systems Review of Systems: CONSTITUTIONAL: Endorses malaise, denies body aches, chills, sweats, fever EYES: Denies visual changes, redness, or discharge ENT: Reports rhinorrhea, congestion, denies sinus pain, otalgia, sore throat CARDIOVASCULAR: Denies chest pain, palpitations, edema RESPIRATORY: Reports cough, post nasal drainage. Denies dyspnea GASTROINTESTINAL: Denies abdominal pain, nausea, vomiting, diarrhea SKIN: Denies rash or itching NEUROLOGIC: Denies headache PMFSH Past Medical History Medical History Bronchitis Hyperlipidemia Hypertension Surgical History Surgical History History of carotid endarterectomy H/O repair of right rotator cuff H/O repair of left rotator cuff Hx of cataract surgery bilateral History of colon resection Status post bilateral LASIK surgery Social History Social History (Reviewed 11/11/24 @ 16:15 by VAUGHN Ndiaye Smoking status: Former smoker Tobacco type: cigarettes Smoking end date: 03/02/09 Alcohol intake: unknown Substance use: never Living arrangements: with family Gender identity (if verbalized by the patient): Male Exam Narrative: GENERAL: well-appearing, nontoxic no acute distress. EYES: conjunctivae clear ENT: Mucous membranes moist. TM pearly arevalo with dull light reflex bilaterally; no tragal tenderness. Oropharynx not erythematous without lesions or exudate, no drooling, no hoarseness, no trismus, uvula midline. No tripod positioning, muffled voice, soft palate or pharyngeal wall bulging NECK: Supple. No lymphadenopathy CHEST: Clear to auscultation, breath sounds equal. No wheezing, rhonchi, rales, or stridor. No respiratory distress, speaks in full sentences. HEART: Regular rate and rhythm. No murmur heard. SKIN: Warm, dry, no rash. NEURO: Alert and oriented x3. PSYCH: Normal mood and affect Course Course Emergency Course: Patient is aware of diagnosis, understands and agrees to treatment plan. Anticipatory guidance given. Patient agrees to follow-up as directed and is aware of reasons to seek care at the emergency department. Portions of this record may have been created with voice recognition software Level of Care: Express Care Visit Vital Signs Vital signs: Vital Signs Temperature 97.7 F 11/11/24 15:36 Pulse Rate 64 11/11/24 15:36 Respiratory Rate 18 11/11/24 15:36 Blood Pressure 139/45 L 11/11/24 15:36 Pulse Oximetry 99 11/11/24 15:36 Oxygen Delivery Room Air 11/11/24 15:36 Temperature 97.7 F 11/11/24 15:36 Pulse Rate 64 11/11/24 15:36 Respiratory Rate 18 11/11/24 15:36 Blood Pressure 139/45 L 11/11/24 15:36 Pulse Oximetry 99 11/11/24 15:36 Oxygen Delivery Room Air 11/11/24 15:36 reviewed MDM - URI/Sore Throat MDM Narrative Medical decision making narrative: Discussed physical exam findings and cxr. negative covid. Advised supportive measures and signs/symptoms to go to the ER. Pt is appropriate for outpt treatment and f/u. Differential Diagnosis Differential diagnosis: Likely upper respiratory infection, sinusitis and viral infection Lab Data Labs: Lab Results 11/11/24 Range/Units 16:01 POC SARS CoV-2 Ag Negative (Negative) Imaging Data Radiologist's impression: Patient: Bacilio Ramirez : 1945 MR#: [id number] Age: 79 Acct:[id number] Loc: [facility] ADM Date: 11/11/24Attending Dr: Ordering Physician: Supriya Nichole APRN Date of Service: 11/11/24 Procedure(s): XR chest 2V Accession Number(s): [id number] cc: Supriya Nichole APRN; SHAHAB,CARLOS Page M.D.~ EXAMINATION: XR chest 2V 11/11/2024 16:20 INDICATION: Cough and fatigue PROCEDURE: 2 view chest COMPARISON: 02/18/2017 FINDINGS: The lungs are clear. The cardiomediastinal silhouette is within normal limits. There are no pleural effusions. There is no pneumothorax suspected. There is focal chronic scarring right upper lobe. IMPRESSION: 1: NO ACUTE CARDIOPULMONARY DISEASE. Discharge Plan Discharge Clinical Impression: Upper respiratory infection Qualifiers: URI type: unspecified URI Qualified Code(s): J06.9 - Acute upper respiratory infection, unspecified Patient Disposition: Home Condition: Stable Instructions: COVID-19 (Coronavirus Disease 2019) (ED) Additional Instructions: Your rapid covid test was negative today. It may be too early to detect the virus, therefore we recommend retesting at home in 1-2 days Continue to follow general precautions: frequent handwashing, wear a mask, isolate/social distance, and avoid crowds if you have a fever. You must be fever free for 24 hours without the use of fever reducing medication (Tylenol/ibuprofen) before returning to work/school/crowds. The following updated recommendations have been made by the CDC and local Health Departments, regarding COVID-19: - When people get sick with a respiratory virus, they stay home and away from others. - Return to normal activities when, for at least 24 hours, symptoms are improving overall, and if a fever was present, it has been gone without use of a fever-reducing medication. - Once people resume normal activities, they are encouraged to take additional prevention strategies for the next 5 days to curb disease spread, such as taking more steps for white work cleaner air, enhancing hygiene practices, wearing a well-fitting mask, keeping a distance from others, and/or getting tested for respiratory viruses. - Enhanced precautions are especially important to protect those most at risk for severe illness, including those over 65 and people with weakened immune systems. Rest, stay hydrated. Tylenol and ibuprofen every 8 hours as needed Flonase/nasal spray, Zyrtec, cough syrup cold/flu medications for symptoms as needed Follow up with your primary care provider, call to schedule an appointment. Go to the ER for worsening symptoms or concerns. Patient Language: Swedish Prescriptions: New cetirizine [Zyrtec] 10 mg tablet 10 mg PO DAILY PRN (Reason: congestion) Qty: 10 0RF benzonatate 200 mg capsule 200 mg PO TID PRN (Reason: cough) Qty: 20 0RF No Action amlodipine 5 mg tablet 5 mg PO BID valsartan 160 mg tablet 160 mg PO DAILY Follow-up/Referrals: Shahab,Carlos Page MD [Primary Care Provider, Unknown] Time of Disposition: 16:28
[2024-11-11 15:36] VITALS: BP 139/45; PULSE 64; RESP 18; TEMP 36.5; O2SAT 99
--- OUTSIDE RECORDS SUMMARY | 2024-11-11 15:59 | XMS_ITS | Encounter Summary ---
Author Organization [facility] Address [address] [place] [address] Phone Care Team Providers Care Software Publisher Name Role Phone Jaylon Gudino MD Primary Care Provider [phone] Reason for Visit * Reason Comments Medication Refill Encounter Details Date Type Department Care Team (Late st Contact Info) Description 05/21/2023 Refill [facility] - Internal Medicine - [place] [address] [place] [address] Claudia Sevilla, [facility] [address] [place] [address] Medication Refill Social History Tobacco Use Types Packs/Day Years Used Date Smoking Tobacco: Former Cigarettes 1 10 Passive Smoke Exposure: Past Smokeless Tobacco: Never Alcohol Use Standard Drinks/Week Comments No 0 (1 standard drink = 0.6 oz pur e alcohol) [facility] Utilities Answer Date Recorded In the past 12 months has [employer], gas, oil, or water company threatened to shut off services in your home? No 04/20/2023 Social Connection and Isolation Panel Answer Date Recorded In a typical week, how many times do you talk on the phone with family, friends, or neighbors? More than three times a week 04/20/2023 Frequency of Social Gatherin gs with Friends and Family Not on file 04/20/2023 Attends [employer] Not on file 04/20 Active Member [...] Total Score - Questions 1-9 0 04/02 [facility] - Occupational Stress [...] encounter Miscellaneous Notes * Telephone Encounter - Rodo Sabina L, RN - 05/22/2023 9:26 AM CDT Medication [...] 04/20/23 Office Visit Jaylon Gudino MD [facility] [place] 09/29/22 Office Visit Jaylon Gudino MD [facility] Showing recent visits within past [...] Care Team (Late st Contact Info) Description 11/21/2024 11:30 AM CDT [facility] [address] [place] [address] Claudia Sevilla, PAC [address] [place] [address] Discharge Disposition: Discharged to home or Selfcare 11/28/2024 11:15 AM CDT Office Visit [facility] - Primary Care - [place] [address] [place] [address] Claudia Sevilla, PAC [address] [place] [address] 01/09/2025 2:45 PM REGULATORY AFFAIRS COORDINATOR Office Visit [facility] Neurology [facility] [address] [place] [address] Alvarez Nick MD [address] [place] [address] 01/23/2025 9:40 AM REGULATORY AFFAIRS COORDINATOR Lab [facility] On[facility] Services [address] [place] [address] Mae Avendaño, CHANI [address] [place] [address] Discharge Disposition: Discharged to home or Selfcare 01/30/2025 9:40 AM REGULATORY AFFAIRS COORDINATOR Office Visit [facility] - Cancer Center Oncology Services [address] [place] [address] Mae Avendaño, CHANI [address] [place] [address] Discharge Disposition: Discharged to home or Selfcare 04/03/2025 10:00 AM REGULATORY AFFAIRS COORDINATOR Office Visit [facility] - Primary Care - [place] [address] [place] [address] Jaylon Gudino MD [address] [place] [address] documented as of this encounter Visit Diagnoses Not on filedocumented in this encounter Additional Health Concerns Assessment Noted Time PHQ-9 Depression Total Score: 0 04/20/19 24 9:50 AM REGULATORY AFFAIRS COORDINATOR documented as of this encounter Care Teams Software Publisher Relationship Specialty Start Date End Date Jaylon Gudino MD PCP - General Internal Medicine 01/16/16 documented as of this encounter
--- OUTSIDE RECORDS SUMMARY | 2024-11-11 15:59 | XMS_ITS | Encounter Summary ---
Author Organization [facility] Address [address] [place] [address] Phone Care Team Providers Care Isotope Technician Name Role Phone Jaylon Gudino MD Primary Care Provider [phone]- [phone] Encounter Details Date Type Department Care Team (Late st Contact Info) Description 11/02/2024 Results Follow-Up [facility] - Primary Care - [place] [address] [place] [phone] Jaylon Gudino MD [address] [place] [address] MYOGLOBIN, RANDOM, URINE, VALLEJO MYGLU Social History Tobacco Use Types Packs/Day Years Used Date Smoking Tobacco: Former Cigarettes 1 10 Passive Smoke Exposure: Past Smokeless Tobacco: Never Alcohol Use Standard Drinks/Week Comments No 0 (1 standard drink = 0.6 oz pur e alcohol) [facility] Utilities Answer Date Recorded In the past 12 months has [employer], gas, oil, or water company threatened to shut off services in your home? No 03/28/2024 Social Connection and Isolation Panel Answer Date Recorded In a typical week, how many times do you talk on the phone with family, friends, or neighbors? Once a week 03/28/2024 How often do you get together with friends or re latives? Once a week 03/28/2024 Attends [employer] Services Not on file 03/28 Active Member of Clubs or Organizations Not on f ile 03/28/2024 Attends Club or Organization Meetings Not on sue e 03/28/2024 Marital Status Not on file 03/28/2024 AUDIT-C Answer Date Recorded Q1: How often do you have a drink containing alcohol? Never 03/28/2024 Q2: How many drinks containi ng alcohol do you have on a typical day when you are drinking? Patient does not drink Frequency of Binge Drinking Not on file 03/03 Overall Financial Resource Strain (CARDIA) Answe r Date Recorded How hard is it for you to pa y for the very basics like food, housing, medical care, and heating? Not hard at all 03/28/2024 PHQ-2 Answer Date Recorded Total Score - Questions 1-9 0 03/03 [facility] - Occupational Stress Questionnaire Answer Date Recorded Do you feel stress - tense, restless, nervous, or anxious, or unable to sleep at night because your mind is troubled all the time - these days? Only a little 03/28/2024 Exercise Vital Sign Answer Date Recorde d On average, how many days pe r week do you engage in moderate to strenuous exercise (like a brisk walk)? 5 days Minutes of Exercise per Session Not on file 03/28/2024 Hunger Vital Sign Answer Date Recorded Within the past 12 months, y ou worried that your food would run out before you got the money to buy more. Never true 03/28/19 25 Within the past 12 months, t he food you bought just didn't last and you didn't have money to get more. Never true 03/28/2024 PRAPARE - Transportation Answer Date Re corded In the past 12 months, has l ack of transportation kept you from medical appointments or from getting medications? No 03/03 In the past 12 months, has l ack of transportation kept you from meetings, work, or from getting things needed for daily living? No 03/28/2024 Housing Stability Vital Sign Answer Claus e Recorded In the last 12 months, was t here a time when you were not able to pay the mortgage or rent on time? No 04/20/2023 Number of Places Lived in the Last Year Not on f ile 04/20/2023 Unstable Housing in the Last Year Not on file 04/20/2023 Housing Stability Vital Sign Answer Lcaus e Recorded In the last 12 months, was t here a time when you were not able to pay the mortgage or rent on time? No 03/28/2024 In the past 12 months, how m any times have you moved where you were living? 0 03/28/2024 At any time in the past 12 m [facility], were you homeless or living in a nursing home (including now)? No 03/28/2024 Sexually Active Control Partners Comments Yes Sex [...] Info) Description 11/21/2024 11:30 AM CDT EMG [facility] [address] [place] [address] Claudia Sevilla PAC [address] [place] [address] Discharge Disposition: Discharged to home or Selfcare 11/28/2024 11:15 AM CDT Office Visit [facility] - Primary Care - [place] [address] [place] [address] Claudia Sevilla, CHANI [address] [place] [address] 01/09/2025 2:45 PM MANAGER ROOFING Office Visit [facility] - Neurology [facility] [address] [place] [address] Alvarez Nick MD [address] [place] [address] 01/23/2025 9:40 AM MANAGER ROOFING Lab [facility] Oncology Services [address] [place] [address] Mae Avendaño July, PAC [address] [place] [address] Discharge Disposition: Discharged to home or Selfcare 01/30/2025 9:40 AM MANAGER ROOFING Office Visit [facility] On[facility] Services [address] [place] [address] Mae Avendaño July, PAC [address] [place] [address] Discharge Disposition: Discharged to home or Selfcare 04/03/2025 10:00 AM MANAGER ROOFING Office Visit [facility] - Primary Care - [place] [address] [place] [address] Jaylon Gudino MD [address] [place] [address] documented as of this encounter Visit Diagnoses Not on filedocumented in this encounter Additional Health Concerns Assessment Noted Time PHQ-9 Depression Total Score: 0 03/28/19 25 8:26 AM MANAGER ROOFING documented as of this encounter Care Teams Isotope Technician Relationship Specialty Start Date End Date Jaylon Gudino MD PCP - General Internal Medicine 01/16/16 documented as of this encounter
--- OUTSIDE RECORDS SUMMARY | 2024-11-11 15:59 | XMS_ITS | Encounter Summary ---
Author Organization [facility] Address [address] [place] [address] Phone Care Team Providers Care Hydraulic Technician Name Role Phone Jaylon Gudino MD Primary Care Provider [phone]- [phone] Reason for Visit * Reason Comments Medication Refill Encounter Details Date Type Department Care Team (Late st Contact Info) Description 07/18/2023 Refill [facility] - Internal Medicine - [place] [address] [facility] [address] Jaylon Gudino MD [address] [place] [address] Medication Refill Social History Tobacco Use Types Packs/Day Years Used Date Smoking Tobacco: Former Cigarettes 1 10 Passive Smoke Exposure: Past Smokeless Tobacco: Never Alcohol Use Standard Drinks/Week Comments No 0 (1 standard drink = 0.6 oz pur e alcohol) [facility] Utilities Answer Date Recorded In the past 12 months has [employer] electric, gas, oil, or water company threatened to shut off services in your home? No 04/20/2023 Social Connection and Isolation Panel Answer Date Recorded In a typical week, how many times do you talk on the phone with family, friends, or neighbors? More than three times a week 04/20/2023 Frequency of Social Gatherin gs with Friends and Family Not on file 04/20/2023 Attends Druze Services Not on file 04/20 Active Member [...] Total Score - Questions 1-9 0 04/02 [facility] - [...] AM CDT Medication(s) refilled and signed per [facility] Chronic Medication Refill Standing Order for Pediatricand [...] Dept 04/20/23 Office Visit [facility] [place] 09/29/22 Office Visit Jaylon Gudino MD [facility] Showing recent visits within past 365 [...] Info) Description 11/21/2024 11:30 AM CDT [facility] [address] [place] [address] Claudia Sevilla PAC [address] [place] [address] Discharge Disposition: Discharged to home or Selfcare 11/28/2024 11:15 AM CDT Office Visit [facility] - Primary Care - [place] [address] [place] [address] [facility] [address] [place] [address] 01/09/2025 2:45 PM BIG DATA ENGINEER Office Visit [facility] - Neurology [facility] #2 [place] [address] Alvarez Nick MD #2 [place] [address] 01/23/2025 9:40 AM BIG DATA ENGINEER Lab [facility] Oncology Services [address] [place] [address] Mae Avendaño [facility], [facility] [address] [place] [address] Discharge Disposition: Discharged to home or Selfcare 01/30/2025 9:40 AM BIG DATA ENGINEER Office Visit [facility] Oncology Services [address] [place] [address] Mae Avendaño [facility], [facility] [address] [place] [address] Discharge Disposition: Discharged to home or Selfcare 04/03/2025 10:00 AM BIG DATA ENGINEER Office Visit [facility] - Primary Care - [place] [address] [place] [address] Jaylon Gudino MD [address] [place], [place] [address] documented as of this encounter Visit Diagnoses Diagnosis Elevated TSH Other abnormal blood chemistry documented in this encounter Additional Health Concerns Assessment Noted Time PHQ-9 Depression Total Score: 0 04/20/19 9:50 AM BIG DATA ENGINEER documented as of this encounter Care Teams Hydraulic Technician Relationship Specialty Start Date End Date Jaylon Gudino MD PCP - General Internal Medicine 01/16/16 documented as of this encounter
--- OUTSIDE RECORDS SUMMARY | 2024-11-11 15:59 | XMS_ITS | Encounter Summary ---
Author Organization [facility] Address [address] [place] [address] Phone Care Team Providers Care Crocodile Farmer Name Role Phone Jaylon Gudino MD Primary Care Provider Reason for Visit * Reason Comments Medication Refill Encounter Details Date Type Department Care Team (Late st Contact Info) Description 12/08/2019 [facility]ill [facility] - [place] [address] [place] [address] Jaylon Gudino MD [address] [place] [address] Medication Refill Social History Tobacco Use Types [...] Info) Description 11/21/2024 11:30 AM CDT [facility] [address] [place] [address] Claudia Sevilla, PAC [address] [place] [address] Discharge Disposition: Discharged to home or Selfcare 11/28/2024 11:15 AM CDT Office Visit [facility] Primary Care - [place] [address] [place] [address] Claudia Sevilla, PAC [address] [place] [address] 01/09/2025 2:45 PM APPRENTICE ARCHITECT Office Visit [facility] #2 [place] [address] Alvarez Nick MD [address] [place] [address] 01/23/2025 9:40 AM APPRENTICE ARCHITECT Lab [facility] Oncology Services [address] [place] [address] Mae Avendaño Nayeli, PAC [address] [place] [address] Discharge Disposition: Discharged to home or Selfcare 01/30/2025 9:40 AM APPRENTICE ARCHITECT Office Visit [facility] Oncology Services [address] [place] [address] Mae Avendaño Nayeli, PAC [address] [place] [address] Discharge Disposition: Discharged to home or Selfcare 04/03/2025 10:00 AM APPRENTICE ARCHITECT Office Visit [facility] Care - [place] [address] [place] [address] Jaylon Gudino MD [address] [place] [address] documented as of this encounter Visit Diagnoses Not on filedocumented in this encounter Additional Health Concerns Infection Onset Date Last Indicated Resolved Time COVID - 19 02/06/2022 02/06/2022 02/16/2022 12:1 6 AM APPRENTICE ARCHITECT documented as of this encounter Care Teams Crocodile Farmer Relationship Specialty Start Date End Date Jaylon Gudino MD PCP - General Internal Medicine 01/16/16 documented as of this encounter
--- OUTSIDE RECORDS SUMMARY | 2024-11-11 15:59 | XMS_ITS | Encounter Summary ---
Author Organization [facility] Address [address] [place] [address] Phone Care Team Providers Care Check Embosser Name Role Phone Jaylon Gudino MD Primary Care Provider [phone]- [phone] Reason for Visit * Reason Comments Medication Refill Encounter Details Date Type Department Care Team (Late st Contact Info) Description 08/16/2023 Refill [facility] - Internal Medicine - [place] [address] [place] [address] Claudia Sevilla, [facility] [address] [place] [address] Medication Refill Social History Tobacco Use Types Packs/Day Years Used Date Smoking Tobacco: Former Cigarettes 1 10 Passive Smoke Exposure: Past Smokeless Tobacco: Never Alcohol Use Standard Drinks/Week Comments No 0 (1 standard drink = 0.6 oz pur e alcohol) [facility] Utilities Answer Date Recorded In the past 12 months has [employer] electric, gas, oil, or water company threatened to shut off services in your home? No 04/20/2023 Social Connection and Isolation Panel Answer Date Recorded In a typical week, how many times do you talk on the phone with family, friends, or neighbors? More than three times a week 04/20/2023 Frequency of Social Gatherin gs with Friends and Family Not on file 04/20/2023 Attends Scientology Services Not on file 04/20 Active Member [...] Total Score - Questions 1-9 0 04/02 [facility] Occupat ional Health - Occupational [...] 04/20/23 Office Visit Jaylon Gudino MD [facility] [place] 09/29/22 Office Visit Jaylon Gudino MD [facility] [place] Showing recent visits within past 365 days and meeting all other requirements Future Appointments Date Type Provider Dept 10/19/23 Appointment Jaylon Gudino MD [facility] [place] Showing future appointments within next 90 days [...] Info) Description 11/21/2024 11:30 AM CDT [facility] Neurosciences Clinic [address] [place] [address] Claudia Sevilla, PAC [address] [place] [address] Discharge Disposition: Discharged to home or Selfcare 11/28/2024 11:15 AM CDT Office Visit [facility] - Primary Care - [place] [address] [place] [address] Claudia Sevilla, PAC [address] [place] [address] 01/09/2025 2:45 PM TRAVEL OT Office Visit [facility] Neurology [facility] [address] [place] [address] Alvarez Nick MD [address] [place] [address] 01/23/2025 9:40 AM TRAVEL OT Lab [facility] Oncology Services [address] [place] [address] Mae Avendaño, PAC [address] [place] [address] Discharge Disposition: Discharged to home or Selfcare 01/30/2025 9:40 AM TRAVEL OT Office Visit [facility] Oncology Services [address] [place] [address] Mae Avendaño Nayeli, [facility] [address] [place] [address] Discharge Disposition: Discharged to home or Selfcare 04/03/2025 10:00 AM TRAVEL OT Office Visit [facility] - Primary Care - [place] [address] [place] [address] Jaylon Gudino MD [address] [place] [address] documented as of this encounter Visit Diagnoses Not on filedocumented in this encounter Additional Health Concerns Assessment Noted Time PHQ-9 Depression Total Score: 0 04/20/19 24 9:50 AM TRAVEL OT documented as of this encounter Care Teams Check Embosser Relationship Specialty Start Date End Date Jaylon Gudino MD PCP - General Internal Medicine 01/16/16 documented as of this encounter
--- OUTSIDE RECORDS SUMMARY | 2024-11-11 15:59 | XMS_ITS | Encounter Summary ---
Author Organization [facility] Address [address] [place] [address] Phone Care Team Providers Care Senior Net Application Developer Name Role Phone Jaylon Gudino MD Primary Care Provider [phone]- [phone] Reason for Visit * Reason Comments Medication Refill Encounter Details Date Type Department Care Team (Late st Contact Info) Description 11/15/2022 Refill [facility] - Internal Medicine - [place] [address] [place] [address] Jaylon Gudino MD [address] [place] [address] Medication Refill Social History Tobacco Use Types [...] Dept 09/29/22 Office Visit [facility] [place] 03/31/22 Office Visit Jaylon Gudino MD [facility] [place] 02/06/22 Office Visit Claudia Sevilla PAC [facility] [place] Showing recent visits within past 365 days [...] Info) Description 11/21/2024 11:30 AM CDT [facility] Neurosciences Clinic [address] [place] [address] Claudia Sevilla, PAC [address] [place] [address] Discharge Disposition: Discharged to home or Selfcare 11/28/2024 11:15 AM CDT Office Visit [facility] - Primary Care - [place] [address] [place] [address] Claudia Sevilla, PAC [address] [place] [address] 01/09/2025 2:45 PM MISSION ANALYST Office Visit [facility] Neurology [facility] #[address] [place] [address] Alvarez Nick MD [address] [place] [address] 01/23/2025 9:40 AM MISSION ANALYST Lab [facility] Oncology Services [address] [place] [address] Mae Avendaño, CHANI [address] [place] [address] Discharge Disposition: Discharged to home or Selfcare 01/30/2025 9:40 AM MISSION ANALYST Office Visit [facility] Oncology Services [address] [place] [address] Mae Avendaño, [facility] [address] [place] [address] Discharge Disposition: Discharged to home or Selfcare 04/03/2025 10:00 AM MISSION ANALYST Office Visit [facility] - Primary Care - [place] [address] [place] [address] Jaylon Gudino MD [address] [place] [address] documented as of this encounter Visit Diagnoses Not on filedocumented in this encounter Additional Health Concerns Assessment Noted Time PHQ-9 Depression Total Score: 0 04/17/19 21 9:00 AM MISSION ANALYST documented as of this encounter Care Teams Senior Net Application Developer Relationship Specialty Start Date End Date Jaylon Gudino MD PCP - General Internal Medicine 01/16/16 documented as of this encounter
--- OUTSIDE RECORDS SUMMARY | 2024-11-11 15:59 | XMS_ITS | Clinical Summary ---
Author Organization [facility] Address [address] [place] [address] Care Team Providers Care Electron Microscopist Name Role Phone Jaylon Gudino MD Unavailable [phone] Jaylon Gudino MD Primary Care Provider [phone]- [phone] Allergies Active Allergy Reactions Criticality Noted Date [...] mg total) by mouth as needed Active meloxicam (MOBIC) 15 mg tablet Take [...] right shoulder 05/05/2011 Mixed hyperlipidemia 12/11/2009 Immunizations Immunization Administration Dates Next Due Tdap 07/23/2022 Surgical [...] on file Legal Sex Male 3:56 AM METALWORKER Gender Identity Not on file Sexual Orientation Not on file Obstetrics History Last Filed Vital Signs Vital Sign Reading Time Taken Comments Blood Pressure 135/90 02/09/2024 2:30 PM METALWORKER Pulse 56 02/09/2024 2:30 PM METALWORKER Temperature 36.2 C (97.2 F) 02/09/2024 1:54 PM METALWORKER Respiratory Rate 14 02/09/2024 2:30 PM METALWORKER Oxygen Saturation 95% 02/09/2024 2:30 PM METALWORKER Inhaled Oxygen Concentration - - Weight 83.9 kg (185 lb) 03/14/2024 9:33 AM METALWORKER Height 176.5 cm (5' 9.5) 02/09/2024 9:19 AM METALWORKER Body Mass Index 26.93 02/09/2024 9:19 AM METALWORKER Plan of Treatment Health Maintenance Due Date Last Done Comments Depression Screening 1945 Hepatitis B Screening 09/04[birth year]1961 Well Visit 65+ 09/04/2008 Pneumococcal vaccine 65+ (2 of 2 - PCV) 12/17/2021 12/17/2020 Zoster Vaccine (3 of 3) 08/17/2023 06/22/2023, 07/15 Covid-19 Vaccine (2 - 2024-2 6 season) 2024 05/26/2020 Influenza Vaccine (#1) 2024 , 12/10/2021, 10/31/2020, Additional history exists Fall Risk Assessment 02/08/2025 02/09/2024 DTaP/Tdap/Td Vaccine (2 - Td or Tdap) 07/23/2032 07/23/2022 Medical Devices Implanted Type Area Crisis Nurse Device Identifier Shelf Expiration Date Model / Serial / Lot [employer] Allian [place] Cartridge Micro Clip Internal Titanium Hemostatic [id number] - [id number] Implanted:Qty: 6 on 07/23/2022 by Vimal Stringer MD at [facility] Clip Left: Hand [employer] Allian 08/29/2026 [id number] / / [id number] [employer] Allian Hemoclip Superfine Clip Internal [id number] - [id number] Implanted:Qty: 6 on 07/23/2022 by Vimal Stringer MD at [facility] Clip Left: Hand [employer] Allian 08/29/2026 [id number] / / [id number] [employer] Avance 2-3mm 50mm Allograft Multiple Clean Graft Soft Tissue [id number] - [id number] Implanted:Qty: 1 on 07/23/2022 by Vimal Stringer MD at [facility] Left: Hand [employer] 10/30/2024 [id number] / / [id number] [employer] Allian [place] Cartridge Micro Clip Internal Titanium Hemostatic [id number] - [id number] Implanted:Qty: 1 on 07/23/2022 by Vimal Stringer MD at [facility] Left: Hand [employer] Allian 06/29/2026 [id number] / / [id number] [employer] Allian Hemoclip Superfine Clip Internal [id number] - [id number] Implanted:Qty: 1 on 07/23/2022 by Vimal Stringer MD at [facility] Left: Hand [employer] Allian 08/29/2026 [id number] / / [id number] [employer] Samira Integra 2x2in Bilayer Matrix Dressing Biological Bovine Collagen Latex Free [id number] - [id number] Implanted:Qty: 1 on 07/23/2022 by Vimal Stringer MD at [facility] Left: Hand [employer] Samira [id number] 07/31/2023 [id number] / / [id number] Insurance MEDICARE MEDICARE MEDICARE MEDICARE Advance Directives For more information, please contact: [phone] * Full Code (Latest Code Status on File) Date Activated Date Inactivated Comments 07/23/2022 8:33 PM 07/24/2022 7:09 PM Care Teams Electron Microscopist Relationship Specialty Start Date End Date Jaylon Gudino MD [address] [place] [address] PCP - General Internal Medicine 10/24/22 Jaylon Gudino MD [address] [place] [address] 07/23/22
--- OUTSIDE RECORDS SUMMARY | 2024-11-11 15:59 | XMS_ITS | Encounter Summary ---
Author Organization [facility] Address [address] [place] [address] Phone Care Team Providers Care Bike Mechanic Name Role Phone Jaylon Gudino MD Primary Care Provider [phone] Reason for Visit * Reason Comments Medication Refill Encounter Details Date Type Department Care Team (Late st Contact Info) Description 08/17/2020 [facility]ill [facility] - [place] [address] [place] [address] Jaylon Gudino MD [address] [place] [address] Medication Refill Social History Tobacco Use Types [...] [facility] [address] [place] [address] Claudia Sevilla, PAC [address] [place] [address] Discharge Disposition: Discharged to home or Selfcare 11/28/2024 11:15 AM CDT Office Visit [facility] - Primary Care - [place] [address] [place] [address] Claudia Sevilla, PAC [address] [place] [address] 01/09/2025 2:45 PM COLD STORAGE WORKER Office Visit [facility] Neurology - [place] #2 [place] [address] Alvarez Nick MD [address] [place] [address] 01/23/2025 9:40 AM COLD STORAGE WORKER [facility] [place] [facility] [address] [place] [address] Mae Avendaño, PAC [address] [place] [address] Discharge Disposition: Discharged to home or Selfcare 01/30/2025 9:40 AM COLD STORAGE WORKER [facility] [address] [place] [address] Mae Avendaño Nayeli, PAC [address] [place] [address] Discharge Disposition: Discharged to home or Selfcare 04/03/2025 10:00 AM COLD STORAGE WORKER Office Visit [facility] - Primary Care - [place] [address] [place] [address] Jaylon Gudino MD [address] [place] [address] documented as of this encounter Visit Diagnoses Not on filedocumented in this encounter Additional Health Concerns Infection Onset Date Last Indicated Resolved Time COVID - 19 02/06/2022 02/06/2022 02/16/2022 12:1 6 AM COLD STORAGE WORKER Assessment Noted Time PHQ-9 Depression Total Score: 0 04/17/19 21 9:00 AM COLD STORAGE WORKER documented as of this encounter Care Teams Bike Mechanic Relationship Specialty Start Date End Date Jaylon Gudino MD PCP - General Internal Medicine 01/16/16 documented as of this encounter
--- OUTSIDE RECORDS SUMMARY | 2024-11-11 15:59 | XMS_ITS | Encounter Summary ---
Author Organization [facility] Address [address] [place] [address] Phone Care Team Providers Care Body Finisher Name Role Phone Jaylon Gudino MD Primary Care Provider [phone]- [phone] Reason for Visit * Reason Comments Medication Refill Encounter Details Date Type Department Care Team (Late st Contact Info) Description 07/03/2023 Refill [facility] - Internal Medicine - [place] [address] [facility] [place] [address] Jaylon Gudino MD [address] [place] [address] Medication Refill Social History Tobacco Use Types Packs/Day Years Used Date Smoking Tobacco: Former Cigarettes 1 10 Passive Smoke Exposure: Past Smokeless Tobacco: Never Alcohol Use Standard Drinks/Week Comments No 0 (1 standard drink = 0.6 oz pur e alcohol) [facility] Utilities Answer Date Recorded In the past 12 months has [employer] electric, gas, oil, or water company threatened [...] Total Score - Questions 1-9 0 04/02 [facility] of Occupat ional Health - [...] Dept 04/20/23 Office Visit Jaylon Gudino MD [facility] [place] 09/29/22 Office Visit Jaylon G[facility] Showing recent visits within past [...] Contact Info) Description 11/21/2024 11:30 AM CDT [facility] [address] [place] [address] Claudia Sevilla, PAC [address] [place] [address] Discharge Disposition: Discharged to home or Selfcare 11/28/2024 11:15 AM CDT Office Visit [facility] Primary Care - [place] [address] [place] [address] Claudia Sevilla, [facility] [address] [place] [address] 01/09/2025 2:45 PM OFFICE MACHINE PUNCH OPERATOR Office Visit [facility] #[address] [place] [address] Alvarez Nick MD #2 [place] [address] 01/23/2025 9:40 AM OFFICE MACHINE PUNCH OPERATOR [facility] [address] [place] [address] Mae Avendaño Nayeli, PAC [address] [place] [address] Discharge Disposition: Discharged to home or Selfcare 01/30/2025 9:40 AM OFFICE MACHINE PUNCH OPERATOR Office Visit [facility] Oncology Services [address] [place] [address] Mae Avendaño Nayeli, PAC [address] [place] [address] Discharge Disposition: Discharged to home or Selfcare 04/03/2025 10:00 AM OFFICE MACHINE PUNCH OPERATOR Office Visit [facility] [place] [address] [place] [address] Jaylon Gudino MD [address] [place] [address] documented as of this encounter Visit Diagnoses Not on filedocumented in this encounter Additional Health Concerns Assessment Noted Time PHQ-9 Depression Total Score: 0 04/20/19 24 9:50 AM OFFICE MACHINE PUNCH OPERATOR documented as of this encounter Care Teams Body Finisher Relationship Specialty Start Date End Date Jaylon Gudino MD PCP - General Internal Medicine 01/16/16 documented as of this encounter
--- OUTSIDE RECORDS SUMMARY | 2024-11-11 15:59 | XMS_ITS | Clinical Summary ---
Author Organization [facility] Address [address] [facility] [place] [address] Care Team Providers Care Marble Rubber Name Role Phone Unavailable Primary Care Provider Unavailabl e Source Comments [facility],non-owned Affiliates and Associated Physician Practices is amultiple site organization consisting of ambulatory clinics and hospital sitesin [place], [place] and [place]. This disclosure is being madepursuant to the Care Everywhere program and may not contain all information available regarding this patient. Last updated 17.[facility] Social History Tobacco Use Types Packs/Day Years Used Date Smoking Tobacco: Never Assessed Sex and Gender Information Value Date Recorded Sex Assigned at Not on file Legal Sex Male 9:12 AM CDT Gender Identity Not on file Sexual Orientation Not on file Plan of Treatment Health Maintenance Due Date Last Done Comments MEDICARE AWV 12 MONTHS 1945 DTAP/TDAP/TD VACCINES (1 - Tdap) 09/04/1962 PNEUMOCOCCAL VACCINE 50+ (1 of 1 - PCV) 09/04/1993 ZOSTER VACCINE (1 of 2) 09/04/1993 Respiratory Syncytial Virus (RSV) Vaccine Pt: or over 60 yrs (1 - 1-dose 75+ series) 09/04/2018 COVID-19 VACCINE ( - 2023-2 5 season) 2023 DEPRESSION SCREENING 03/02/2024 INFLUENZA VACCINE (#1) 2024 HEPATITIS B VACCINE Aged Out No longe r eligible based on patient's age to complete this topic HIB VACCINE Aged Out No longer eligi ble based on patient's age to complete this topic HPV VACCINE Aged Out No longer eligi ble based on patient's age to complete this topic MENINGOCOCCAL (Group B) VACC INE SHARED DECISION-MAKING Aged Out No longer eligibl e based on patient's age to complete this topic MENINGOCOCCAL GROUPS A/C/Y/W VACCINE Aged Out No longer eligible b ased on patient's age to complete this topic Insurance MEDICARE
--- OUTSIDE RECORDS SUMMARY | 2024-11-11 15:59 | XMS_ITS | Encounter Summary ---
Author Organization [facility] Address [address] [facility] [place] [address] Phone Care Team Providers Care Cat Breeder Name Role Phone Jaylon Gudino MD Primary Care Provider [phone] Encounter Details Date Type Department Care Team (Latest Contact Info) Description 10/20/2024 Results Follow-Up [facility] Oncology Services [address] [place] [address] Mae Avendaño Nayeli, PAC [address] [place], [place] [id number] MYELODYSPLASTIC SYNDROME, DIAGNOSTIC FISH VALLEJO MDSDF, FOLIC ACID (FOLATE), FERRITIN, Additional followed-up results: 9 Social History Tobacco Use Types Packs/Day Years Used Date Smoking Tobacco: Former Cigarettes 1 10 Passive Smoke Exposure: Past Smokeless Tobacco: Never Alcohol Use Standard Drinks/Week Comments No 0 (1 standard drink = 0.6 oz pur e alcohol) [facility] Utilities Answer Date Recorded In [...] re latives? Once a week 03/28/2024 Attends [employer] Not on file 03/28 Active Member [...] Total Score - Questions 1-9 0 03/03 [facility] of Occupat ional Health - Occupational Stress [...] any time in the past 12 m [facility], were you homeless or living in a longterm (including now)? No 03/28/2024 Sexually Active Control [...] Info) Description 11/21/2024 11:30 AM CDT EM[facility] Neurosciences [facility] [address] [place] [address] Claudia Sevilla, CHNAI [address] [place] [address] Discharge Disposition: Discharged to home or Selfcare 11/28/2024 11:15 AM CDT Office Visit [facility] - Primary Care - [place] [address] [place] [address] Claudia Sevilla, PAC [address] [place] [address] 01/09/2025 2:45 PM PAINT LINE PRODUCTION SUPERVISOR Office Visit [facility] - Neurology [facility] [address] [place] [address] Alvarez Nick MD [address] [place] [address] 01/23/2025 9:40 AM PAINT LINE PRODUCTION SUPERVISOR Lab [facility] Oncology Services [address] [place] [address] Mae Avendaño July, PAC [address] [place] [address] Discharge Disposition: Discharged to home or Selfcare 01/30/2025 9:40 AM PAINT LINE PRODUCTION SUPERVISOR Office Visit [facility] Oncology Services [address] [place] [address] WaterburyMae July, PAC [address] [place] [address] Discharge Disposition: Discharged to home or Selfcare 04/03/2025 10:00 AM PAINT LINE PRODUCTION SUPERVISOR Office [facility] - Primary Care - [place] [address] [place] [address] Jaylon Gudino MD [address] [place] [address] documented as of this encounter Visit Diagnoses Not on filedocumented in this encounter Additional Health Concerns Assessment Noted Time PHQ-9 Depression Total Score: 0 03/28/19 25 8:26 AM PAINT LINE PRODUCTION SUPERVISOR documented as of this encounter Care Teams Cat Breeder Relationship Specialty Start Date End Date Jaylon Gudino MD PCP - General Internal Medicine 01/16/16 documented as of this encounter
--- OUTSIDE RECORDS SUMMARY | 2024-11-11 15:59 | XMS_ITS | Encounter Summary ---
Author Organization [facility] Address [address] [place] [address] Phone Care Team Providers Care Toll Repairer Central Office Name Role Phone Jaylon Gudino MD Primary Care Provider [phone] Unknown, Notinfile Primary Care Provider Unavail able Jaylon Gudino MD Unavailable [phone] Jaylon Gudino MD Primary Care Provider [phone] Encounter Details Date Type Department Care Team (Late st Contact Info) Description 02/15/2021 Telephone [facility] Surgery [address] [place] [address] [address] [place] [address] Kaia Gold Social History Tobacco Use Types Packs/Day Years Used Date Smoking Tobacco: Former Sex and Gender Information Value Date Recorded Sex Assigned at Not on file Legal Sex Male 3:56 AM ELECTRIC BATH ATTENDANT Gender Identity Not on file Sexual Orientation Not on file documented as of this encounter Plan of Treatment Not on file documented as of this encounter Visit Diagnoses Not on filedocumented in this encounter Care Teams Toll Repairer Central Office Relationship Specialty Start Date End Date Jaylon Gudino MD [address] [place] [address] PCP - General 07/07/16 07/22/22 Unknown, Notinfile PCP - General 07/23/22 10/23/22 Jaylon Gudino MD [address] [place] [address] PCP - General Internal Medicine 10/24/22 Jaylon Gudino MD [address] [place] [address] 07/23/22 documented as of this encounter
--- OUTSIDE RECORDS SUMMARY | 2024-11-11 15:59 | XMS_ITS | Encounter Summary ---
Author Organization [facility] Address [address] [place] [address] Phone Care Team Providers Care Infantry Unit Leader Name Role Phone Jaylon Gudino MD Primary Care Provider [phone] Reason for Visit * Reason Comments Medication Refill Encounter Details Date Type Department Care Team (Late st Contact Info) Description 02/19/2023 Refill [facility] - [place] [address] [facility] [place] [address] Jaylon Gudino MD [address] [place] [address] Medication Refill Social History Tobacco Use Types [...] 09/29/22 Office Visit Jaylon Gudino MD [facility] [place] 03/31/22 Office Visit Jaylon Gudino MD [facility] Showing recent visits within past 365 days and meeting all other requirements Future Appointments Date Type Provider Dept 04/06/23 Appointment Jaylon Gudino MD [facility] Showing future appointments within next 90 days [...] Value Ref Range Status 09/29/2022 No Final S CLERK documented in this encounter Plan of Treatment Upcoming Encounters Date Type Department Care Team (Late st Contact Info) Description 11/21/2024 11:30 AM CDT EMG [facility]OB Neurosciences Clinic [address] [place] [address] Claudia Sevilla, PAC [address] [place] [address] Discharge Disposition: Discharged to home or Selfcare 11/28/2024 11:15 AM CDT Office Visit [facility] - Primary Care - [place] [address] [place] [address] Claudia Sevilla, PAC [address] [place] [address] 01/09/2025 2:45 PM SALES CLERK Office Visit [facility] Neurology [facility] [address] [place] [address] Alvarez Nick MD [address] [place] [address] 01/23/2025 9:40 AM SALES CLERK [facility] [place] [facility] [address] [place] [address] Mae Avendaño, PAC [address] [place] [address] Discharge Disposition: Discharged to home or Selfcare 01/30/2025 9:40 AM SALES CLERK [facility] [place] [facility] [address] [place] [address] Mae Avendaño, PAC [address] [place] [address] Discharge Disposition: Discharged to home or Selfcare 04/03/2025 10:00 AM SALES CLERK [facility] [place] [address] [place] [address] Jaylon Gudino MD [address] [place] [address] documented as of this encounter Visit Diagnoses Not on filedocumented in this encounter Additional Health Concerns Assessment Noted Time PHQ-9 Depression Total Score: 0 04/17/19 21 9:00 AM SALES CLERK documented as of this encounter Care Teams Infantry Unit Leader Relationship Specialty Start Date End Date Jaylon Gudino MD PCP - General Internal Medicine 01/16/16 documented as of this encounter
--- OUTSIDE RECORDS SUMMARY | 2024-11-11 15:59 | XMS_ITS | Encounter Summary ---
Author Organization [facility] Address [address] [place] [address] Phone Care Team Providers Care Ammonia Refrigeration Technician Name Role Phone Jaylon Gudino MD Primary Care Provider [phone] Reason for Visit * Reason Comments Medication Refill Encounter Details Date Type Department Care Team (Late st Contact Info) Description 07/06/2023 Refill [facility] - Internal Medicine - [place] [address] [facility] [place] [address] Jaylon Gudino MD [address] [place] [address] Medication Refill Social History Tobacco Use Types Packs/Day Years Used Date Smoking Tobacco: Former Cigarettes 1 10 Passive Smoke Exposure: Past Smokeless Tobacco: Never Alcohol Use Standard Drinks/Week Comments No 0 (1 standard drink = 0.6 oz pur e alcohol) [facility] Utilities Answer Date Recorded In the past 12 months has [employer] electric, gas, oil, or water company threatened [...] Total Score - Questions 1-9 0 04/02 [facility] of Occupat ional Health - Occupational [...] PM CDT Medication(s) [facility] Chronic Medication Refill Standing Order for [...] 04/20/23 Office Visit Jaylon Gudino MD [facility] 09/29/22 Office Visit Jaylon Gudino MD [facility] Showing recent visits within past 365 days and meeting all other requirements Future Appointments No visits were found meeting these conditions. Showing future appointments within next 90 days and meeting all other requirements documented in this encounter Plan of Treatment Upcoming Encounters Date Type Department Care Team (Late st Contact Info) Description 11/21/2024 11:30 AM CDT EMG [facility] Neurosciences Clinic [address] [place] [address] Claudia Sevilla, [facility] [address] [place] [address] Discharge Disposition: Discharged to home or Selfcare 11/28/2024 11:15 AM CDT Office Visit [facility] - Primary Care - [place] [address] [place] [address] Caludia Sevilla PAC [address] [place] [address] 01/09/2025 2:45 PM BENDING PRESS OPERATOR Office Visit [facility] #[address] [place] [address] Alvarez Nick MD [address] [place] [address] 01/23/2025 9:40 AM BENDING PRESS OPERATOR Lab [facility] Oncology Services [address] [place] [address] aMe Avendaño, PAC [address] [place] [address] Discharge Disposition: Discharged to home or Selfcare 01/30/2025 9:40 AM BENDING PRESS OPERATOR Office Visit [facility] Oncology Services [address] [place] [address] Mae Avendaño, [facility] [address] [place] [address] Discharge Disposition: Discharged to home or Selfcare 04/03/2025 10:00 AM BENDING PRESS OPERATOR Office Visit [facility] Primary Care - [place] [address] [place] [address] Jaylon Gudino MD [address], [place] [id number] documented as of this encounter Visit Diagnoses Not on filedocumented in this encounter Additional Health Concerns Assessment Noted Time PHQ-9 Depression Total Score: 0 04/20/19 9:50 AM BENDING PRESS OPERATOR documented as of this encounter Care Teams Ammonia Refrigeration Technician Relationship Specialty Start Date End Date Jaylon Gudino MD PCP - General Internal Medicine 01/16/16 documented as of this encounter
--- OUTSIDE RECORDS SUMMARY | 2024-11-11 15:59 | XMS_ITS | Encounter Summary ---
Author Organization [facility] Address [address] [facility] [place] [address] Phone Care Team Providers Care Vice President Of Instruction Name Role Phone Jaylon Gudino MD Primary Care Provider Encounter Details Date Type Department Care Team (Late st Contact Info) Description 11/03/2024 Results Follow-Up [facility] Oncology Services [address] [place] [address] Mae Avendaño Nayeli, PAC [address] [place] [address] VITAMIN B12, FERRITIN, CMP (COMPREHENSIVE METABOLIC PANEL), Additional followed-up results: 3 Social History Tobacco Use Types Packs/Day Years Used Date Smoking Tobacco: Former Cigarettes 1 10 Passive Smoke Exposure: Past Smokeless Tobacco: Never Alcohol Use Standard Drinks/Week Comments No 0 (1 standard drink = 0.6 oz pur e alcohol) [facility] Utilities Answer Date Recorded In the past 12 months has [employer], gas, oil, or water company threatened to shut off services in your home? No 03/28/2024 Social Connection and Isolation Panel Answer Date Recorded In a typical week, how many times do you talk on the phone with family, friends, or neighbors? Once a week 03/28/2024 How often do you get together with friends or re latives? Once a week 03/28/2024 Attends S[employer] Services Not on file 03/28 Active Member [...] Total Score - Questions 1-9 0 03/03 [facility] of Occupat ional Health - Occupational Stress [...] any time in the past 12 m [facility], were you homeless or living in a fpc (including now)? No 03/28/2024 Sexually Active Control [...] Info) Description 11/21/2024 11:30 AM CDT EMG [facility] Neurosciences Clinic [address] [place] [address] Claudia Sevilla PAC [address] [place] [address] Discharge Disposition: Discharged to home or Selfcare 11/28/2024 11:15 AM CDT Office Visit [facility] - Primary Care - [place] [address] [place] [address] Claudia Sevilla, CHANI [address] [place] [address] 01/09/2025 2:45 PM CHARGE AUDITOR Office Visit [facility] Neurology [facility] [place] [address] [place] [address] Alvarez Nick MD [address] [place] [address] 01/23/2025 9:40 AM CHARGE AUDITOR Lab [facility] Oncology Services [address] [place] [address] Mae Avendaño July, PAC [address] [place] [address] Discharge Disposition: Discharged to home or Selfcare 01/30/2025 9:40 AM CHARGE AUDITOR Office Visit [facility] Oncology Services [address] [place] [address] AvendañoMae July, PAC [address] [place] [address] Discharge Disposition: Discharged to home or Selfcare 04/03/2025 10:00 AM CHARGE AUDITOR Office Visit [facility] - Primary Care - [place] [address] [place] [address] Jaylon Gudino MD [address] [place] [address] documented as of this encounter Visit Diagnoses Not on filedocumented in this encounter Additional Health Concerns Assessment Noted Time PHQ-9 Depression Total Score: 0 03/28/19 25 8:26 AM CHARGE AUDITOR documented as of this encounter Care Teams Vice President Of Instruction Relationship Specialty Start Date End Date Jaylon Gudino MD PCP - General Internal Medicine 01/16/16 documented as of this encounter
--- OUTSIDE RECORDS SUMMARY | 2024-11-11 15:59 | XMS_ITS | Encounter Summary ---
Author Organization [facility] Address [address] [place] [address] Care Team Providers Care Blade Sharpener Name Role Phone Unavailable Primary Care Provider Unavailabl e Encounter Details Date Type Department Care Team (Late st Contact Info) Description 02/21/[address] [facility] [address] [facility], [place] [address] Dashawn Hou MD [address] [place] [address] Social History Tobacco Use Types [...] Comments DERMATOPATHOLOGY Routine 02/19/2022 12:0 0 AM GRAVE DIGGER documented in this encounter Results * DERMATOPATHOLOGY (02/19/2022 12:00 AM GRAVE DIGGER) Case Report Dermatopathology Report Case: [id number] Authorizing Provider: Dashawn Hou MD Collected: 02/19/2022 12:00 AM Ordering Location: [facility] Received: 02/21/2022 06:54 AM Pathologist: Andressa Ba MD Specimen: Skin, plantar right heel 2 3:11 PM GRAVE DIGGER DERMATOPATHOLOGY LABORATORY Final Diagnosis Specimen A. SKIN, plantar right heel: VERRUCA VULGARIS (B07.8) (see microscopic description) 2 3:11 PM GRAVE DIGGER DERMATOPATHOLOGY LABORATORY at 1511 GRAVE DIGGER Clinical History R/O wart vs neoplasm undetermined 12/27/202 2 3:11 PM [facility] DERMATOPATHOLOGY LABORATORY Gross Description Specimen A: Received is one formalin filled container labeled with the patient's name and designated plantar right heel. The specimen consists of a punch biopsy measuring 6x6x6 mm, bisected. Jar 0. 2 3:11 PM [facility] DERMATOPATHOLOGY LABORATORY Microscopic Description Specimen A. SKIN, plantar right heel: There is digitated epidermal hyperplasia, hypergranulosis, vacuolated granular layer cells, and compact hyperorthokeratosis . Focal endophytic features are present. 2 3:11 PM [facility] DERMATOPATHOLOGY LABORATORY Disclaimer An external and internal positive and negative controls are appropriate for the histochemical, immunohistochemical and immunofluorescence stain(s) in this case (if any), except where stated explicitly. The performance characteristics of the stain(s) cited in this report were developed and its performance characteristic determined by the Dermatopathology Laboratory at [facility], directed by Dr. Christine Zapata. These tests need not be, and therefore are not, approved by the [place] Food and Drug Administration. The tests are used for clinical purposes. Billing Codes Specimen Charges Stain Charges 52489 1 2 3:11 PM GRAVE DIGGER DERMATOPATHOLOGY LABORATORY Embedded Images 2 3:11 PM [facility] DERMATOPATHOLOGY LABORATORY Pathology/Cytolog y TISSUE SPECIMEN FROM SKIN / Unknown 02/19/2022 02/21/2022 6:54 AM GRAVE DIGGER Dashawn Hou MD LAB - PATHOLOGY/CYTOLOGY ORD ERABLES Final Result DERMATOPATHOLOGY LABORATORY [facility] - Department of Dermatology [address] [place] [address], [facility] [phone] documented in this encounter Visit Diagnoses Not on filedocumented in this encounter
--- OUTSIDE RECORDS SUMMARY | 2024-11-11 15:59 | XMS_ITS | Clinical Summary ---
Author Organization [facility] Address [address], [facility] [address] [place] [address] Phone Care Team Providers Care [employer] Name Role Phone Jaylon Gudino MD Primary Care Provider Allergies Active Allergy Reactions Criticality Noted Date Comments Moxifloxacin Hcl In Nacl Unknown 02/01/2016 Penicillins Hives Simvastatin Other (see Comments) 11/10/2011 MUSCLE PAIN Sulfa Antibiotics Rash Medium 12/28/2019 Medications aspirin EC 81 MG Tablet Delayed Response Take 81 mg by mouth daily. Active levothyroxine (SYNTHROID) 25 MCG Tablet 1 tab po 3 time/week. Mon,wed,fri 36 Tablet 3 06/28/19 25 Active amLODIPine (NORVASC) 5 MG Tablet Take 1 tablet by mouth twice daily 180 Tablet 09/30/19 25 Active valsartan (DIOVAN) 160 MG Tablet Take 1 tablet by mouth once daily 90 Tablet 1 10/18/19 25 Active pravastatin (PRAVACHOL) 40 MG Tablet TAKE 2 TABLETS BY MOUTH NIGHTLY 180 Tablet 1 10/18/19 25 Active methylPREDNISo lone (MEDROL DOSPACK) 4 MG Tablet Therapy Pack Use as per instructions on package. 1 Tablet 10/28/19 25 Active pravastatin (PRAVACHOL) 40 MG Tablet TAKE 2 TABLETS BY MOUTH NIGHTLY 180 Tablet 07/19/19 25 025 Discontinued valsartan (DIOVAN) 160 MG Tablet Take 1 tablet by mouth once daily 90 Tablet 07/23/19 25 025 Discontinued Active Problems Problem Noted Date Diagnosed Date Allergic rhinitis 09/26/2024 Chronic anemia 09/16/2024 Steatohepatitis, non-alcoholic 03/28/2024 Other specified hypothyroidism 09/29/2022 Hyperglycemia 04/17/2020 Generalized [...] Encounters Date Type Department Care Team Description 11/03/2024 Results Follow-Up [facility] Oncology Services [address] [place] [address] Mae Avendaño Nayeli, PAC VITAMIN B12, FERRITIN, CMP (COMPREHENSIVE METABOLIC PANEL), Additional followed-up results: 3 11/02/2024 1:30 PM CDT - 11/02/2024 11:59 PM CDT Hospital Encounter [facility] Diagnostic Radiology [address] [place] [address] Claudia Sevilla, CHANI Discharge Disposition: Discharged to home or Selfcare 11/02/2024 Travel 11/02/2024 Results Follow-Up [facility] Primary [facility] [place] [address] [place] [phone] Jaylon Gudino MD MYOGLOBIN, RANDOM, URINE, VALLEJO MYGLU 10/28/2024 Results Follow-Up [facility] Primary [facility] [place] [address] [place] [address] Claudia Sevilla PAC ERYTHROCYTE SEDIMENTATION RATE (ESR), CYCLIC CITRULLINATED PEPTIDE 3, ANTINUCLEAR ANTIBODY (JAS), TITER IF POS, Additional followed-up results: 5 10/28/2024 Telephone [facility] [address] [place] [facility] [place] [address] Jaylon Gudino MD 10/27/2024 12:40 PM CDT Lab [address] [place] [address] Lab, [facility] Arthralgia, unspecified joint; Muscle pain Discharge Disposition: Discharged to home or Selfcare 10/27/2024 11:30 AM CDT Office [address] [place] [address] Claudia Sevilla PAC Muscle pain (Primary Dx); Essential hypertension, benign; Neck pain; Arthralgia, unspecified joint; Vitamin D deficiency, unspecified Discharge Disposition: Discharged to home or Selfcare 10/27/2024 9:40 AM CDT Office Visit [facility] Oncology Services [address] [place] [address] Mae Avendaño July, PAC Anemia, unspecified type (Primary Dx) Discharge Disposition: Discharged to home or Selfcare 10/27/2024 Nurse Triage [facility] [address] [place] [phone] Jaylon Gudino MD Muscle Pain; Joint Pain 10/27/2024 Travel 10/20/2024 Results Follow-Up [facility] Oncology Services [address] [place] [phone] Mae Avendaño Nayeli, PAC MYELODYSPLASTIC SYNDROME, DIAGNOSTIC FISH VALLEJO MDSDF, FOLIC ACID (FOLATE), FERRITIN, Additional followed-up results: 9 10[facility] [address] [place] [address] Claudia Sevilla, PAC Medication Refill 10/15/2024 [facility] [address] [place] [address] Jaylon Gudino MD Medication Refill 10/10/2024 10:30 AM CDT Lab [facility] Oncology Services [address] [place] [address] Mae Avendaño Nayeli, PAC Anemia, unspecified type Discharge Disposition: Discharged to home or Selfcare 10/10/2024 Travel 09/29/2024 Refill [facility] [address] [place] [address] Jaylon Gudino MD Medication Refill 09/29/2024 [facility] [address] [place] [address] Jaylon Gudino MD Medication Refill 09/26/2024 11:00 AM CDT Office Visit [facility] Internal Medicine [facility] [address] [place] [address] Jaylon Gudino MD Essential hypertension, benign (Primary Dx); Other hyperlipidemia; Other specified hypothyroidism; Chronic anemia; Allergic rhinitis due to other allergic trigger, unspecified seasonality Discharge Disposition: Discharged to home or Selfcare 09/26/2024 Travel 09/16/2024 2:00 PM CDT Initial Consult [facility] Oncology Services [address] [place] [address] Mae Avendaño Nayeli, PAC Anemia, unspecified type (Primary Dx) Discharge Disposition: Discharged to home or Selfcare 09/16/2024 Travel 09/01/2024 Results Follow-Up [facility] Internal Medicine - [facility] [address] [place] [address] Claudia Sevilla, CHANI VITAMIN B12, FERRITIN, FOLIC ACID (FOLATE), Additional followed-up results: 2 08/31/2024 8:30 AM CDT Office Visit [facility] - Internal [facility] - [facility] [address] [place] [phone] Claudia Sevilla PAC Anemia, unspecified type (Primary Dx) Discharge Disposition: Discharged to home or Selfcare 08/31/2024 Travel from Last 3 Months Immunizations Immunization Administration Dates Next Due Covid-19, Mrna, Lnp-s, PF, 1 00 mcg/0.5 mL Dose (Moderna) 05/26/2020 Influenza Vaccine greater than 3 yrs 11/15/2018 Influenza Vaccine, Quadrivalent, PF 12/10/2021 Influenza, High-dose, Quadrivalent 11/09/2019 Influenza, Quadrivalent, Adjuvanted 11/13/2022,0 10/31/2020 Influenza, Recombinant, Quadrivalent,injectable, Pf 10/31/2020 Influenza, Seasonal, Injecta ble, Undefined 11/15/2018 Influenza, Trivalent, Adjuvanted, PF 03/28/2024 Influenza, high-dose, trivalent, PF 09/11/2019,11/18/2016,11/25/2015,12/16 Pneumococcal Vaccine Adult - 23 Valent Pneumococcal conjugate PCV20 , polysaccharide [id number] conjugate, adjuvant, PF 03/31/2022 TDAP Vaccine 07/23/2022 [...] drink = 0.6 oz pur e alcohol) [facility] Utilities Answer Date Recorded In the past 12 months has [employer], gas, oil, or water [employer] threatened to shut off services in your home? No 03/28/2024 Social Connection and Isolation Panel Answer Date Recorded In a typical week, how many times do you talk on the phone with family, friends, or neighbors? Once a week 03/28/2024 How often do you get together with friends or re latives? Once a week 03/28/2024 Attends [employer]ond[employer] Services Not on file 03/28 Active Member [...] Total Score - Questions 1-9 0 03/03 [facility] - Occupational [...] any time in the past 12 m [facility], were you homeless or living in a m[facility]p (including now)? No 03/28/2024 Sexually Active Control [...] Sign Reading Time Taken Comments Blood Pressure 140/68 10/27/2024 11:32 AM CDT Pulse 58 10/27/2024 11:32 AM CDT Temperature 36.5 C (97.7 F) 10/27/2024 11:32 AM CDT Respiratory Rate 12 10/27/2024 11:32 AM CDT Oxygen Saturation 97% 10/27/2024 11:32 AM CDT Inhaled Oxygen Concentration - - Weight 78.9 kg (174 lb) 10/27/2024 11:32 AM CDT Height 175.3 cm (5' 9) 10/27/2024 9:22 AM CDT Body Mass Index 25.7 10/27/2024 9:22 AM CDT Plan of Treatment Upcoming Encounters Date Type Department Care Team (Late st Contact Info) Description 11/21/2024 11:30 AM CDT [facility] [address] [place] [phone] Claudia Sevilla, PAC [address] [place] [address] Discharge Disposition: Discharged to home or Selfcare 11/28/2024 11:15 AM CDT Office Visit [facility] Primary Care - [place] [address] [place] [phone] Claudia Sevilla, [facility] [address] [place] [address] 01/09/2025 2:45 PM PLASTIC SURGERY SPECIALIST Office Visit [facility] [address] [place] [address] Alvarez Nick MD [address] [place] [address] 01/23/2025 9:40 AM PLASTIC SURGERY SPECIALIST [facility] [address] [place] [phone] Mae Avendaño Nayeli, PAC [address] [place] [address] Discharge Disposition: Discharged to home or Selfcare 01/30/2025 9:40 AM PLASTIC SURGERY SPECIALIST Office Visit [facility] Oncology Services [address] [place] [address] Mae Avendaño Nayeli, PAC [address] [place] [address] Discharge Disposition: Discharged to home or Selfcare 04/03/2025 10:00 AM PLASTIC SURGERY SPECIALIST Office Visit [facility] [place] [address] [place] [phone] Jaylon Gudino MD [address] [place] [address] Health Maintenance Due Date Last Done Comments Hepatitis C Virus (HCV) Screening 1945 Respiratory Syncytial Virus (RSV) Immunization (Adult) (1 - 1-dose 75+ series) 09/04/2018 Influenza Immunization (#1) 10/31/2024/08/2024, 11/13/2022, 12/10/2021, Additional history exists SARS-COV-2 Immunization (2024- season) 2024 12/23/2022, 06/29/2021, 01/14/2021, Additional history exists Td Immunization Every 10 Years (Adults With 1 Tdap) 07/23/2032 07/23/2022 Pneumococcal Immunization (50+ years) Completed 03/31/2022, 12/17/2020 Pneumococcal Immunization Combined Discontinued 03/31/2022, 12/17/2020 DTaP/Tdap/Td Immunization Discontinued 07/23/2022 TdaP Immunization Discontinued 07/23/2022 Zoster Immunization Completed 10/24/2023, 06/22/2023, 07/16/2015 Hepatitis B Immunization Aged Out No longer eligible based on patient's age to complete this topic Human Papillomavirus (HPV) Immunization Aged Out No longer eligible based on patient's age to complete this topic Meningococcal Immunization (ACWY) Aged Out No longer eligible based on patient's age to complete this topic Rotavirus Immunization Aged Out No lo nger eligible based on patient's age to complete this topic Medical Devices Implanted Type Area Sports Book Board Attendant Device Identifier Shelf Expiration Date Model / Serial / Lot Ana Rosa Phoenix, Fluoroplastic Intranasal Splint, Oversize Thick 0.50mm Implanted:Qty: 1 on 02/01/2016 by Juan Rubio MD at [facility] Left: Nose 08/26/2023 / / [id number] Ana Rosa Phoenix, Fluoroplastic Intranasal Splint, Oversize Thick (0.50mm) Implanted:Qty: 1 on 02/01/2016 by Juan Rubio MD at [facility] Right: Nose 08/26/2023 / / [id number] Procedures Procedure Name Priority Date/Time Associated Diagnosis Comments XR CERVICAL SPINE MINIMUM 4 VIEWS (4 OR 5V) Routine 11/02/2024 1:54 PM CDT Neck pain CBC WITH AUTO DIFFERENTIAL Routine 11/02/2024 1:30 PM CDT Anemia, unspecified type FOLIC ACID (FOLATE) Routine 11/02/2024 1 :30 PM CDT Anemia, unspecified type IRON,TRANSFERN,CALC.TIB C,%SAT Routine 11/02/2024 1:30 PM CDT Anemia, unspecified type CMP (COMPREHENSIVE METABOLIC PANEL) Routine 11/02/2024 1:30 PM CDT Anemia, unspecified type FERRITIN Routine 11/02/2024 1:30 PM CDT Anemia, unspecified type VITAMIN B12 Routine 11/02/2024 1:30 PM CDT Anemia, unspecified type COMPLETE BLOOD COUNT (CBC) WITH DIFF Routine 11/02/2024 1:30 PM CDT Anemia, unspecified type MYOGLOBIN, RANDOM, URINE, VALLEJO MYGLU Routine 10/28/2024 10:27 AM CDT Arthralgia, unspecified joint FREE (CALC) AND TOTAL TESTOSTERONE Routine 10/27/2024 12:16 PM CDT Arthralgia, unspecified joint Muscle pain VITAMIN D, 25 HYDROXY TOTAL Routine 10/27/2024 12:16 PM CDT Arthralgia, unspecified joint Muscle pain Vitamin D deficiency, unspecified FREE AND TOTAL TESTOSTERONE Routine 10/27/2024 12:16 PM CDT Arthralgia, unspecified joint Muscle pain RHEUMATOID FACTOR (RFQT) QUANT Routine 10/27/2024 12:16 PM CDT Arthralgia, unspecified joint Muscle pain ANTINUCLEAR ANTIBODY (JAS), TITER IF POS Routine 10/27/2024 12:16 PM CDT Arthralgia, unspecified joint Muscle pain CYCLIC CITRULLINATED PEPTIDE 3 Routine 10/27/2024 12:16 PM CDT Arthralgia, unspecified joint Muscle pain ERYTHROCYTE SEDIMENTATION RATE (ESR) Routine 10/27/2024 12:16 PM CDT Arthralgia, unspecified joint Muscle pain CREATINE KINASE (CK) TOTAL Routine 10/27/2024 12:16 PM CDT Arthralgia, unspecified joint Muscle pain CBC WITH AUTO DIFFERENTIAL Routine 10/10/2024 10:35 AM CDT Anemia, unspecified type ERYTHROPOIETIN, SERUM, EPO Routine 10/10/2024 10:35 AM CDT Anemia, unspecified type IRON,TRANSFERN,CALC.TIB C,%SAT Routine 10/10/2024 10:35 AM CDT Anemia, unspecified type IMMUNOFIXATION W/ ELECTROPHORESIS SERUM Routine 10/10/2024 10:35 AM CDT Anemia, unspecified type FREE KAPPA & LAMBDA LIGHT CHAINS SERUM Routine 10/10/2024 10:35 AM CDT Anemia, unspecified type LACTATE DEHYDROGENASE (LD) Routine 10/10/2024 10:35 AM CDT Anemia, unspecified type RETICULOCYTE COUNT (RETIC) Routine 10/10/2024 10:35 AM CDT Anemia, unspecified type VITAMIN B12 Routine 10/10/2024 10:35 AM CDT Anemia, unspecified type COMPLETE BLOOD COUNT (CBC) WITH DIFF Routine 10/10/2024 10:35 AM CDT Anemia, unspecified type CMP (COMPREHENSIVE METABOLIC PANEL) Routine 10/10/2024 10:35 AM CDT Anemia, unspecified type FERRITIN Routine 10/10/2024 10:35 AM CDT Anemia, unspecified type FOLIC ACID (FOLATE) Routine 10/10/2024 1 0:35 AM CDT Anemia, unspecified type MYELODYSPLASTIC SYNDROME, DIAGNOSTIC FISH VALLEJO MDSDF Routine 10/10/2024 10:35 AM CDT Anemia, unspecified type CBC WITH AUTO DIFFERENTIAL Routine 08/31/2024 9:09 AM CDT Anemia, unspecified type IRON,TRANSFERN,CALC.TIB C,%SAT Routine 08/31/2024 9:09 AM CDT Anemia, unspecified type FOLIC ACID (FOLATE) Routine 08/31/2024 9 :09 AM CDT Anemia, unspecified type FERRITIN Routine 08/31/2024 9:09 AM CDT Anemia, unspecified type VITAMIN B12 Routine 08/31/2024 9:09 AM CDT Anemia, unspecified type COMPLETE BLOOD COUNT (CBC) WITH DIFF Routine 08/31/2024 9:09 AM CDT Anemia, unspecified type from Last 3 Months Results * XR CERVICAL SPINE MINIMUM 4 VIEWS (4 OR 5V) (11/02/2024 1:54 PM CDT) Anatomical Region Laterality Modality Spine, C-spine N/A Digital Radiogra phy 11/02/2024 1:54 PM CDT Impressions 11/02/2024 5:45 PM CDT IMPRESSION: Moderate degenerative changes at C5-6 and C6-7. Narrative 11/02/2024 5:45 PM CDT DICTATING PHYSICIAN: Qasim Stone M.D. TECHNIQUE: XR CERVICAL SPINE MINIMUM 4 VIEWS (4 OR 5V), HISTORY: Cervicalgia COMPARISON: None. RESULT: The atlanto-axial interval appears normal. Prevertebral soft tissue swelling is not seen. Odontoid view is within normal limits. Moderate degenerative changes at C5-6 and C6-7 with disc space narrowing and endplate osteophytes. Oblique views demonstrate scattered osseous foraminal encroachment. Procedure Note Qasim Stone MD - 11/02/2024 DICTATING PHYSICIAN: Qasim Stone M.D. TECHNIQUE: XR CERVICAL SPINE MINIMUM 4 VIEWS (4 OR 5V), HISTORY: Cervicalgia COMPARISON: None. RESULT: The atlanto-axial interval appears normal. Prevertebral soft tissueswelling is not seen. Odontoid view is within normal limits. Moderate degenerative changes at C5-6 and C6-7 with disc space narrowingand endplate osteophytes. Oblique views demonstrate scattered osseous foraminal encroachment. IMPRESSION: Moderate degenerative changes at C5-6 and C6-7. Claudia Sevilla PAC IMG DIAGNOSTIC OR DERABLES Final Result * IRON,TRANSFERN,CALC.TIBC,%SAT (11/02/2024 1:30 PM CDT) Only the most recent of3 resultswithin the time period is included. IRON 62 31 - 144 mcg/dL 11/02/2024 4:09 PM CDT [facility] TRANSFERRIN 248 163 - 344 mg/dL 11/02/2024 4:09 PM CDT [facility] TIBC, CALCULATED 310 261 - 462 mcg/dL 11/02/2024 4:09 PM CDT [facility] % SATURATION * 20 15 - 62 % 11/02/2024 4:09 PM CDT [facility] Blood Venipuncture / Unknown 11/02/2024 1:30 PM CDT 11/02/2024 3:43 PM CDT Mae Avendaño PAC CHEMISTRY ORDERABLES Isela l Result [facility] [address] [place] [address] * (ABNORMAL) CBC WITH AUTO DIFFERENTIAL (11/02/2024 1:30 PM CDT) Only the most recent of3 resultswithin the time period is included. WBC 11.14 4.00 - 12.00 10(3)/mcL 11/02/2024 3:46 PM CDT [facility] RBC 3.79(L) 4.40 - 5.80 10(6)/mcL 11/02/2024 3:46 PM CDT [facility] HEMOGLOBIN (HGB) 11.1(L) 13.0 - 16.5 g/dL 11/02/2024 3:46 PM CDT [facility] HEMATOCRIT (HCT) 33.7(L) 38.0 - 50.0 % 11/02/2024 3:46 PM CDT [facility] MCV 88.9 82.0 - 96.0 fL 11/02/2024 3:46 PM CDT [facility] MCH 29.3 26.0 - 32.0 pg 11/02/2024 3:46 PM CDT [facility] MCHC 32.9 31.0 - 36.0 g/dL 11/02/2024 3:46 PM CDT [facility] PLATELET COUNT 285 140 - 440 10(3)/mcL 11/02/2024 3:46 PM CDT [facility] RDW 12.4 11.8 - 15.5 % 11/02/2024 3:46 PM CDT [facility] MPV 10.9 8.0 - 12.6 fL 11/02/2024 3:46 PM CDT [facility] NEUTROPHILS 72.4(H) 40.0 - 68.0 % 11/02/2024 3:46 PM CDT [facility] LYMPHOCYTES 17.4(L) 19.0 - 49.0 % 11/02/2024 3:46 PM CDT [facility] MONOCYTES 7.9 3.0 - 13.0 % 11/02/2024 3:46 PM CDT [facility] EOSINOPHILS 0.1 0.0 - 8.0 % 11/02/2024 3:46 PM CDT [facility] BASOPHILS 0.3 0.0 - 1.0 % 11/02/2024 3:46 PM CDT [facility] IMMATURE GRANULOCYTE 1.9(H) 0.0 - 0.4 % 11/02/2024 3:46 PM CDT [facility] Comment:Immature Granulocyte s includes Metamyelocytes, Myelocytes, and Promyelocytes. ABSOLUTE NEUTROPHILS 8.07(H) 1.40 - 5.30 10(3)/[facility] 11/02/2024 3:46 PM CDT [facility] ABSOLUTE LYMPHOCYTES 1.94 0.90 - 3.30 10(3)/[facility] 11/02/2024 3:46 PM CDT [facility] ABSOLUTE MONOCYTES 0.88 0.10 - 0.90 10(3)/[facility] 11/02/2024 3:46 PM CDT [facility] ABSOLUTE EOSINOPHIL 0.01 0.00 - 0.50 10(3)/[facility] 11/02/2024 3:46 PM CDT [facility] ABSOLUTE BASOPHILS 0.03 0.00 - 0.10 10(3)/[facility] 11/02/2024 3:46 PM CDT [facility] ABSOLUTE IMMATURE GRANULOCYTE 0.21(H) 0.00 - 0.03 10 (3) mcL. 11/02/2024 3:46 PM CDT [facility] NRBC PER 100 WBC 0 11/03/19 25 3:46 PM CDT [facility] Blood Venipuncture / Unknown 11/02/2024 1:30 PM CDT 11/02/2024 3:42 PM CDT us Mae Avendaño PAC HEMATOLOGY ORDERABLES Fin al Result [facility] [address] [place] [address] * (ABNORMAL) VITAMIN B12 (11/02/2024 1:30 PM CDT) Only the most recent of3 resultswithin the time period is included. VITAMIN B12 824(H) 213 - 816 pg/mL 11/02/2024 4:41 PM CDT [facility] Blood Venipuncture / Unknown 11/02/2024 1:30 PM CDT 11/02/2024 3:43 PM CDT [facility] PAC CHEMISTRY ORDERABLES Isela l Result Performing Organization Address City/[facility]/ZIP Co de Phone Number [facility] [address] [place] [address] * FOLIC ACID (FOLATE) (11/02/2024 1:30 PM CDT) Only the most recent of3 resultswithin the time period is included. FOLATE 14.1 7.0 - 31.4 ng/mL 11/02/2024 4:41 PM CDT [facility] IS THE PATIENT REQUIRED TO BE FASTING? No 11/02/2024 4:41 PM CDT [facility] Blood Venipuncture / Unknown 11/02/2024 1:30 PM CDT 11/02/2024 3:43 PM CDT [facility] PAC CHEMISTRY ORDERABLES Isela l Result [facility] [address] [place] [address] * (ABNORMAL) FERRITIN (11/02/2024 1:30 PM CDT) Only the most recent of3 resultswithin the time period is included. FERRITIN 302(H) 22 - 274 ng/mL 11/02/2024 4:25 PM CDT [facility] Blood Venipuncture / Unknown 11/02/2024 1:30 PM CDT 11/02/2024 3:43 PM CDT Mae Avendaño PAC CHEMISTRY ORDERABLES Isela l Result [facility] [address] [place] [address] * (ABNORMAL) CMP (COMPREHENSIVE METABOLIC PANEL) (11/02/2024 1:30 PM CDT) Only the most recent of2 resultswithin the time period is included. SODIUM 139 136 - 145 mmol/L 11/02/2024 4:09 PM CDT [facility] POTASSIUM 4.5 3.5 - 5.1 mmol/L 11/02/2024 4:09 PM CDT [facility] CHLORIDE 104 98 - 107 mmol/L 11/02/2024 4:09 PM CDT [facility] CO2, VENOUS 25 22 - 30 mmol/L 11/02/2024 4:09 PM CDT [facility] ANION GAP 14.5 <18.0 mmol/L 11/02/2024 4:09 PM CDT [facility] GLUCOSE 197(H) 70 - 99 mg/dL 11/02/2024 4:09 PM CDT [facility] BUN 41(H) 8 - 26 mg/dL 11/02/2024 4:09 PM CDT [facility] CREATININE, BLOOD 1.48(H) 0.70 - 1.30 mg/dL 11/02/2024 4:09 PM CDT [facility] BUN/CREATININE RATIO 28(H) 12 - 20 ratio 11/02/2024 4:09 PM CDT [facility] TOTAL PROTEIN 7.1 6.0 - 8.0 g/dL 11/02/2024 4:09 PM CDT [facility] ALBUMIN 4.4 3.5 - 5.0 g/dL 11/02/2024 4:09 PM [facility] A/G RATIO 1.6 1.0 - 2.2 11/02/2024 4:09 PM [facility] CALCIUM 9.4 8.7 - 10.5 mg/dL 11/02/2024 4:09 PM [facility] T BILI 0.4 0.2 - 1.2 mg/dL 11/02/2024 4:09 PM [facility] SGOT (AST) 34 <43 U/L 11/02/2024 4:09 PM [facility] SGPT (ALT) 59(H) <56 U/L 11/02/2024 4:09 PM [facility] ALKALINE PHOSPHATASE 75 40 - 150 U/L 11/02/2024 4:09 PM [facility] IS THE PATIENT REQUIRED TO BE FASTING? No 11/02/2024 4:09 PM [facility] GFR, ESTIMATED 47(L) >=60 11/02/2024 4:09 PM [facility] Comment: Creatinine Clearance is the preferred criteria for selecting drug dose adjustments in renally impaired patients. The GFR is provided as additional pertinent clinical information. GFR is reported in mL/min/1.73 sq m. Calculation based on the 2020 Chronic Kidney Disease Epidemiology Collaboration (CKD-EPI) equation refit without adjustment for race. GFR, EST. 55(L) >=60 025 4:09 PM [facility] Comment: Creatinine Clearance is the preferred criteria for selecting drug dose adjustments in renally impaired patients. The GFR is provided as additional pertinent clinical information. GFR is reported in mL/min/1.73 sq m. Calculation based on the 2009 Chronic Kidney Disease Epidemiology Collaboration (CKD-EPI). GFR, EST. NONAFRICAN 46(L) >=60 11/02/2024 4:09 PM [facility] Comment: Creatinine Clearance is the preferred criteria for selecting drug dose adjustments in renally impaired patients. The GFR is provided as additional pertinent clinical information. GFR is reported in mL/min/1.73 sq m. Calculation based on the 2009 Chronic Kidney Disease Epidemiology Collaboration (CKD-EPI). Blood Venipuncture / Unknown 11/02/2024 1:30 PM CDT 11/02/2024 3:43 PM CDT Mae Avendaño PAC CHEMISTRY ORDERABLES Isela l Result Performing Organization Address City/[facility]/ZIP Co de Phone Number [facility] [address] [place] [address] * (ABNORMAL) MYOGLOBIN, RANDOM, URINE, VALLEJO MYGLU (10/28/2024 10:27 AM CDT) MYOGLOBIN, RANDOM, U 25(H) 0 - 24 mcg/L 10/29/2024 2:26 PM CDT [facility] Comment: ADDITIONAL INFORMATION This test has been modified from the front maker's instructions. Its performance characteristics were determined by [facility] in a manner consistent with CLIA requirements. This test has not been cleared or approved by the U.S. Food and Drug Administration. Test Performed by: [place] [address] [employer] Architect: Aleida Brooks Ph.D.; CLIA# [id number] Urine Non-Phlebotomy Collection / Unknown 10/28/2024 10:27 AM CDT 10/28/2024 10:46 AM CDT Jaylon Gudino MD LAB SEND OUTS Final Resul t [facility] * VITAMIN D, 25 HYDROXY TOTAL (10/27/2024 12:16 PM CDT) VITAMIN D, 25 HYDROX 35.7 ng/mL 10/27/2024 1:32 PM CDT [facility] Blood Venipuncture / Unknown 10/27/2024 12:16 PM CDT 10/27/2024 12:48 PM CDT Narrative [facility] - 10/27/2024 1:32 PM CDT Published reference ranges for Vitamin D vary depending on time and place and method of testing, and on patient's age, sex, ethnicity and levels of other measured analytes such as parathormone, calcium and phosphorus. The result should be evaluated in conjunction with clinical findings and suspicions. [place] [employer] and [employer]ocrine Clinical Practice Guidelines: Status Vitamin D levels (ng/mL) Deficient <=20 At risk of inadequacy 21-29 Sufficient 30-100 Centers of Disease Control and Prevention Guidelines: Status Vitamin D levels (ng/mL) Deficient <13 At risk of inadequacy 13-19 Sufficient 20-50 Possibly harmful >50 References: [place] [employer], 2010 Dietary reference intakes for calcium and vitamin D. [place]: The National Academies Press. Nick M, Donal N, Madelaine UMANA, et al., Evaluation, treatment, and prevention of Vitamin D deficiency: an Endocrinology Clinical Practice Guideline. JCEM 2011 96: 7 5657-2850. Arnaldo A, Festus C, Bing D, et al., Vitamin D Status: [place], , [facility] data brief, no. 59, MD Lydia: National Center for Health Statistics. 2011. Claudia Sevilla PAC CHEMISTRY ORDERAB LES Final Result [facility] [place] [address] * CYCLIC CITRULLINATED PEPTIDE 3 (10/27/2024 12:16 PM CDT) CCP IGG <0.5 <3.0 U/mL 10/27/2024 6:2 4 PM CDT [facility] Blood Venipuncture / Unknown 10/27/2024 12:16 PM CDT 10/27/2024 12:16 PM CDT Narrative [facility] - 10/27/2024 6:24 PM CDT Antibody testing was performed by multiplex flow immunoassay on the Picocent platform. Claudia Sevilla [facility] IMMUNOLOGY ORDERA BLES Final Result Performing Organization Address [facility] Co de Phone Number [facility] [address] [place] [address], [place] * FREE (CALC) AND TOTAL TESTOSTERONE (10/27/2024 12:16 PM CDT) TESTOSTERONE, TOTAL 271 221 - 716 ng/dL 10/27/2024 9:56 PM CDT [facility] FREE TESTOSTERONE CALCULATION 4.87 4.7 - 24.4 ng/dL [facility] ARCH [id number] 10/27/2024 9:56 PM CDT [facility] ALBUMIN 4.8 3.5 - 5.0 g/dL 10/27/2024 9:56 PM CDT [facility] SEX HORMONE BINDING GLOBULIN 34.5 11.0 - 78.0 nmol/L 10/27/2024 9:56 PM CDT [facility] Blood Venipuncture / Unknown 10/27/2024 12:16 PM CDT 10/27/2024 12:48 PM CDT Claudia Sevilla [facility] CHEMISTRY ORDERAB LES Final Result Performing Organization Address [facility] Co de Phone Number [facility] [address] [place] [address], [place] * (ABNORMAL) ERYTHROCYTE SEDIMENTATION RATE (ESR) (10/27/2024 12:16 PM CDT) ESR (SED RATE, ERYTHROCYTE SEDIMENTATION RATE) 30(H) <20 mm/h 10/27/2024 12:47 PM CDT [facility] Comment: Patients presenting with increased level of fibrinogen, gamma globulins, or abnormally shaped RBCs could affect the results for the erythrocyte sedimentation rate (ESR). Results should be clinically correlated. Blood Venipuncture / Unknown 10/27/2024 12:16 PM CDT 10/27/2024 12:16 PM CDT Claudia Sevilla [facility] HEMATOLOGY ORDERA BLES Final Result Performing Organization Address City/[facility]/ZIP Co de Phone Number [facility] [place] [address] * RHEUMATOID FACTOR (RFQT) QUANT (10/27/2024 12:16 PM CDT) RHEUMATOID FACTOR QT <13 <30 IU/mL 10/27/2024 1:16 PM CDT [facility] Blood Venipuncture / Unknown 10/27/2024 12:16 PM CDT 10/27/2024 12:42 PM CDT Narrative [facility] - 10/27/2024 1:16 PM CDT RHEUMATOID FACTORS CAN BE FOUND IN RHEUMATOID ARTHRITIS, SYPHILIS, VIRAL INFECTIONS, LEPROSY, CHRONIC LIVER DISEASE, NEOPLASMS, AND OTHER INFLAMMATORY CONDITIONS. RF PREVALENCE ALSO INCREASES WITH AGE. THUS A POSITIVE TEST IS NOT RESTRICTED TO RA. CONVERSELY, A NEGATIVE TEST DOES NOT RULE OUT RA, RHEUMATOID FACTORS ARE NOT DETECTABLE IN 10% OF ADULTS WITH THE DISEASE. Result [facility] Claudia Sevilla [facility] CHEMISTRY ORDERAB LES Final Result Performing Organization Address [facility] Co de Phone Number [facility] [place] [address] * (ABNORMAL) CREATINE KINASE (CK) TOTAL (10/27/2024 12:16 PM CDT) CK (CPK) 218(H) 30 - 200 U/L 10/27/2024 1:10 PM CDT [facility] Blood Venipuncture / Unknown 10/27/2024 12:16 PM CDT 10/27/2024 12:16 PM CDT Claudia Sevilla PAC CHEMISTRY ORDERAB LES Final Result Performing Organization Address City/[facility]/ZIP Co de Phone Number [facility] [place] [address] * ANTINUCLEAR ANTIBODY (JAS), TITER IF POS (10/27/2024 12:16 PM CDT) JAS SCREEN Negative Negative titer 10/28/2024 1:59 PM CDT [facility] Comment: Antinuclear autoantibodies not detected by IFA at a 1:80 screening dilution of HEp-2 cells. JAS TITER Not Applicable Negative, See comment, Not Applicable titer 10/28/2024 1:59 PM CDT [facility] Comment: Antinuclear autoantibodies not detected by IFA at a 1:80 screening dilution of HEp-2 cells. JAS PATTERN NOT APPLICABLE 10/28/2024 1:59 PM CDT [facility] Blood Venipuncture / Unknown 10/27/2024 12:16 PM CDT 10/27/2024 12:16 PM CDT Narrative [facility] - 10/28/2024 1:59 PM CDT Rods and Rings cytoplasmic pattern seen us Claudia Sevilla PAC IMMUNOLOGY ORDERA BLES Final Result Performing Organization Address City/[facility]/ZIP Co de Phone Number [facility] [address] [place] [address], * ERYTHROPOIETIN, SERUM, EPO (10/10/2024 10:35 AM CDT) Pathologist [facility] [place] ERYTHROPOIETIN, SERUM 8.7 2.6 - 18.5 mIU/mL 10/12/2024 9:28 AM CDT [facility] Comment: Test Performed by: [facility] - [facility] [address] [place] [address] Java Solutions Architect: Aleida Brooks Ph.D.; CLIA# [id number] Blood Venipuncture / Unknown 10/10/2024 10:35 AM CDT 10/10/2024 10:36 AM CDT us Mae Avendaño PAC LAB SEND OUTS Final Res ult [facility] US * MYELODYSPLASTIC SYNDROME, DIAGNOSTIC FISH FLYNN MDSDF (10/10/2024 10:35 AM CDT) Pathologist [facility] [place] MDSDF RESULT SUMMARY Normal 10/18/2024 4:09 PM CDT [facility] MDSDF INTERPRETATION This result is within normal limits for the MDS FISH panel. 10/18/2024 4:09 PM CDT [facility] MDSDF RESULT TABLE SEE NOTE 2024 4:09 PM CDT [facility] Comment: Abnormality Name Result Abn% Cutoff% inv(3) RPN1/MECOM fusion Normal <4.0 -17p13.1(TP53x1,S03F5t1) Normal <15.0 -17(TP53,D17Z1)x1 Normal <10.0 +8(D8Z2,MYC)x3 Normal <7.0 -20q12([id number],74arwka7) Normal <12.0 -5q31(M1O757m7,EGR1x1) Normal <12.0 -5(G9J941,EGR1)x1 Normal <10.0 -7q31(D7Z1x2,W2N562f6) Normal <12.0 -7(D7Z1,W7C875)x1 Normal <10.0 MDSDF RESULT Interphase FISH is normal for all loci studied. 10/18/2024 4:09 PM CDT [facility] MDSDF REASON FOR REFERRAL anemia 10/18/2024 4:09 PM CDT [facility] MDSDF SPECIMEN Blood 10/18/2024 4:09 PM CDT [facility] MDSDF METHOD SEE NOTE 10/18/2024 4:09 PM CDT [facility] Comment: Locus and probes [Strategy;#Nuclei;Vendor] 3q21(RPN1[GATA2]),3q26.2(MECOM) [DFISH;200;LDT] 5p15.2(B8V801),5q31(EGR1) [COPY#;100;AM] 7CEN(D7Z1),7q31(G9A383) [COPY#;100;AM] 8CEN(D8Z2),8q24.1(MYC) [COPY#;100;AM] 17p13(TP53),17CEN(D17Z1) [COPY#;100;AM] 20q12(H46M306),20qter [COPY#;100;AM/C] Probe strategies include: DFISH=dual color, double fusion; COPY#=region gain and loss. Scoring Method: Manual Probe vendors include: LDT = [facility] Developed AM = [employer] ([place], [place]) C = [employer] ([place], [place]) MDSDF ADDITIONAL INFORMATION SEE NOTE 10/18/2024 4:[address] [facility] Comment: A portion of the testing process was performed at [facility] site [id number]. MDSDF DISCLAIMER SEE NOTE 10/19/19 4:[address] [facility] Comment: Applicable to Analyte Specific Reagent (ASR) and Laboratory Developed Tests (LDT). This test was developed and its performance characteristics determined by [facility] in a manner consistent with CLIA requirements. It has not been cleared or approved by the U.S. Food and Drug Administration. This FISH test does not rule out other chromosome abnormalities. MDSDF RELEASED BY Rody Harris M.D. 10/18/2024 4:[address] [facility] Comment: Test Performed by: [facility] - [address] [address] Java Solutions Architect: Aleida Brooks Ph.D.; CLIA# [id number] Blood Venipuncture / Unknown 10/10/2024 10:35 AM CDT 10/10/2024 10:36 AM CDT [facility] LAB SEND OUT GENETIC Isela l Result [facility] US * (ABNORMAL) FREE KAPPA & LAMBDA LIGHT CHAINS SERUM (10/10/2024 10:35 AM CDT) Free [place] Lt Chn 24.14(H) 3.30 - 19.40 mg/L 10/12/2024 8:41 AM CDT [facility] Free Lambda Lt Chn 14.61 5.71 - 26.30 mg/L 10/12/2024 8:41 AM CDT [facility] free alonzo shah ratio 1.65 0.26 - 1.65 10/12/2024 8:41 AM CDT [facility] Blood Venipuncture / Unknown 10/10/2024 10:35 AM CDT 10/10/2024 10:36 AM CDT [facility] CHEMISTRY ORDERABLES Isela l Result [facility] [address] [place] [address], [place] * RETICULOCYTE COUNT (RETIC) (10/10/2024 10:35 AM CDT) RETICULOCYTES 1.4 0.5 - 2.0 % 10/10/2024 12:19 PM CDT [facility] Blood Venipuncture / Unknown 10/10/2024 10:35 AM CDT 10/10/2024 10:36 AM CDT [facility] HEMATOLOGY ORDERABLES Fin al Result [facility] [place] [address] * LACTATE DEHYDROGENASE (LD) (10/10/2024 10:35 AM CDT) LDH 216 125 - 220 U/L 10/10/2024 11:37 AM CDT [facility] Blood Venipuncture / Unknown 10/10/2024 10:35 AM CDT 10/10/2024 10:36 AM CDT Maelyric Avendaño PAC CHEMISTRY ORDERABLES Isela l Result [facility] [address] [place] [address] * (ABNORMAL) IMMUNOFIXATION W/ ELECTROPHORESIS SERUM (10/10/2024 10:35 AM CDT) Pathologist [facility] [place] TOTAL PROTEIN 6.6 6.0 - 8.0 g/dL 10/12/2024 12:34 PM CDT [facility] % ALBUMIN 55.8 55.8 - 66.7 % 10/12/2024 12:34 PM CDT [facility] ALBUMIN SERUM 3.7 2.5 - 5.4 g/dL 10/12/2024 12:34 PM CDT [facility] % ALPHA 1 GLOBULIN 3.6 2.9 - 4.9 % 10/12/2024 12:34 PM CDT [facility] ALPHA 1 0.2 0.2 - 0.4 g/dL 10/12/2024 12:34 PM CDT [facility] % ALPHA 2 GLOBULIN 12.1(H) 7.1 - 11.8 % 10/12/2024 12:34 PM CDT [facility] ALPHA 2 0.8 0.5 - 1.0 g/dL 10/12/2024 12:34 PM CDT [facility] % BETA 15.2(H) 8.4 - 13.1 % 10/12/2024 12:34 PM CDT [facility] BETA-GLOBULIN 1.0 0.5 - 1.1 g/dL 10/12/2024 12:34 PM CDT [facility] % GAMMA GLOBULIN 13.3 11.1 - 18.8 % 10/12/2024 12:34 PM CDT [facility] GAMMA 0.9 0.7 - 1.5 g/dL 10/12/2024 12:34 PM CDT [facility] IMMUNOGLOBULIN G 956 540 - 1,822 mg/dL 10/12/2024 12:34 PM CDT [facility] IMMUNOGLOBULIN A 144 101 - 645 mg/dL 10/12/2024 12:34 PM CDT [facility] IMMUNOGLOBULIN M 47 22 - 240 mg/dL 10/12/2024 12:34 PM CDT [facility] INTERPRETATION SERUM No abnormal protein band is detected by serum protein electrophoresis. Serum immunofixation electrophoresis is negative for monoclonal immunoglobulins. Reviewed by Santiago Alvarenga Jr., M.D. 10/12/2024 12:34 PM CDT [facility] A/G RATIO, SERUM 1.3 10/13/19 25 12:34 PM CDT [facility] Blood Venipuncture / Unknown 10/10/2024 10:35 AM CDT 10/10/2024 10:36 AM CDT us Mae Avendaño PAC CHEMISTRY ORDERABLES Isela jackson Result [facility] [address] [place] [address], [place] from Last 3 Months Insurance MEDICARE Care Teams [employer] Relationship Specialty Start Date End Date Jaylon Gudino MD PCP - General Internal Medicine 01/16/16
[2024-11-11 16:03] LABS: EDCOVIDSCREEN Negative (Negative)
== END 2024-11-11 16:36 | disposition home or self-care (01) ==
PROVIDERS: Emergency Provider Nurse Practitioner Family; PCP Internal Medicine
DX: J06.9 Acute upper respiratory infection, unspecified (principal); Z20.822 Contact with and (suspected) exposure to COVID-19; Z87.891 Personal history of nicotine dependence; I10 Essential (primary) hypertension; E78.5 Hyperlipidemia, unspecified
CPT/HCPCS: 71046; 87426; 99213; G0463